=== PATIENT | female | born 1955 | race African-American/Black ===

== ENCOUNTER 2020-05-15 11:26 | Outpatient (CLI) | payer OTHER, SELFPAY ==
--- NOTE | ~2020-05-15 | XR_ITS ---
EXAMINATION: XR chest 2V EXAM DATE: 05/15/2020 11:46 INDICATION: R06.00 - Dyspnea, unspecified, worse with exertion. History of hypertension. TECHNIQUE: Frontal and lateral projections of the chest obtained and reviewed. There is no prior lizz dy for comparison. FINDINGS: There is moderately enlarged cardiac silhouette which could be cardiomegaly and/or pericar dial effusion. No confluent consolidation, pneumothorax or pleural effusion suspected. Mild thoracic spondylosis. IMPRESSION: Mildly enlarged cardiac silhouette, pericardial effusion and/or cardiomegaly. Reviewed, dictated and finalized at location A. M [employer] IMPRESSION: Mildly enlarged cardiac silhouette, pericardial effusion and/or ca rdiomegaly.
== END 2020-05-15 11:27 | disposition home or self-care (01) ==
PROVIDERS: PCP Family Medicine; Visit Provider Family Medicine
DX: R06.00 Dyspnea, unspecified (principal); M47.814 Spondylosis without myelopathy or radiculopathy, thoracic region
CPT/HCPCS: 71046

== ENCOUNTER 2020-05-17 09:38 | Outpatient (CLI) | payer OTHER, SELFPAY ==
[2020-05-17 09:56] LABS: Hematocrit 30.9 % (37.0-47.0); Mean Corpuscular HGB Conc 32.4 g/dl (32-36); Mean Corpuscular Hemoglobin 30.1 pg (26-34); Mean Corpuscular Volume 93.1 fl (80-100); Mean Platelet Volume 10.8 fl (7.4-10.4); Platelet Count Result 160 k/mm3 (150-375); Red Blood Count 3.32 M/mm3 (4.2-5.4); Red Cell Distribution Width 14.7 % (11.5-14.5); White Blood Count 8.3 K/mm3 (4.5-10.0)
[2020-05-17 10:08] LABS: Alanine Aminotransferase 13 U/L (4-35); Albumin Level 3.5 g/dL (3.5-5.1); Alkaline Phosphatase 69 U/L (38-126); Anion Gap 7 mmol/L (8-16); Aspartate Amino Transferase 16 U/L (14-36); Bilirubin,Total 0.6 mg/dL (0.2-1.3); Blood Urea Nitrogen 33 mg/dL (7-17); Calcium 8.7 mg/dL (8.4-10.2); Carbon Dioxide 19 mmol/L (22-30); Chloride 112 mmol/L (98-107); Estimated Glomerular Filt Rate 22; Glucose 98 mg/dL (65-105); Potassium 4.4 mmol/L (3.4-5.0); Sodium 138 mmol/L (137-145)
[2020-05-17 10:17] LABS: NT Pro B Type Natriuretic Pept 3180 PG/ML (5-100)
== END 2020-05-17 09:39 | disposition home or self-care (01) ==
LOC: ANHLAB 09:39
PROVIDERS: PCP Family Medicine; Visit Provider Family Medicine
DX: I50.9 Heart failure, unspecified (principal); R06.00 Dyspnea, unspecified
CPT/HCPCS: 36415; 80053; 83880; 85027

== ENCOUNTER 2020-06-05 11:31 | Outpatient (CLI) | payer OTHER, SELFPAY ==
[2020-06-05 12:37] LABS: Anion Gap 7 mmol/L (8-16); Blood Urea Nitrogen 30 mg/dL (7-17); Carbon Dioxide 21 mmol/L (22-30); Chloride 112 mmol/L (98-107); Estimated Glomerular Filt Rate 20; Glucose 92 mg/dL (65-105); Potassium 4.5 mmol/L (3.4-5.0); Sodium 140 mmol/L (137-145)
== END 2020-06-05 11:32 | disposition home or self-care (01) ==
LOC: ANHLAB 11:35
PROVIDERS: PCP Family Medicine; Visit Provider Internal Medicine Cardiovascular Disease
DX: I50.30 Unspecified diastolic (congestive) heart failure (principal)
CPT/HCPCS: 36415; 80048

== ENCOUNTER 2020-08-02 11:01 | Outpatient (CLI) | payer OTHER, SELFPAY ==
--- NOTE | ~2020-08-02 | XR_ITS ---
EXAMINATION: XR chest 2V DATE: 08/02/2020 11:19 INDICATION: Dyspnea TECHNIQUE: PA and lateral views of the chest were obtained. COMPARISON: Chest radiograph dated 05/15/2020 FINDINGS: The lungs remain clear with no focal airspace opacities, pulmonary edema, pleural effusion or pneumot horax. Unchanged moderately enlarged cardiac silhouette. Mediastinal silhouette is normal with tortuo us thoracic aorta. Cholecystectomy clips in right upper quadrant. Mild thoracic spondylosis. IMPRESSION: 1. Unchanged moderately enlarged cardiac silhouette which could represent cardiomegaly an/or pericard ial effusion. Reviewed, dictated and finalized at location B. IMPRESSION: 1. Unchanged moderately enlarged cardiac silhouette which could represent cardi omegaly an/or pericardial effusion.
--- NOTE | ~2020-08-02 | XR_ITS ---
EXAMINATION: XR knee LT 3V DATE: 08/02/2020 11:19 INDICATION: Left knee pain post fall one week prior TECHNIQUE: Anteroposterior, 2 oblique and crosstable lateral views of the left knee were obtained COMPARISON: None. FINDINGS: Alignment is normal. No fracture large left knee joint effusion without evident layering lipohemarth rosis. Tricompartmental osteoarthritis at the left knee with small to moderate sized marginal osteoph ytes in all 3 compartments and severe joint space narrowing in the medial compartment. Loose osteocho ndral bodies are seen along the cephalad margin of the patella and in the recess posterior to the int ercondylar notch. Soft tissues are unremarkable. IMPRESSION: 1. Large left knee joint effusion without evident fracture or layering lipohemarthrosis. 2. Tricompartmental osteoarthritis at the left knee, severe in the medial compartment. Reviewed, dictated and finalized at location B. IMPRESSION: 1. Large left knee joint effusion without evident fracture or layering lipohema rthrosis. 2. Tricompartmental osteoarthritis at the left knee, severe in the medial gillian rtment.
[2020-08-02 12:26] LABS: Anion Gap 11 mmol/L (8-16); Blood Urea Nitrogen 49 mg/dL (7-17); Calcium 8.1 mg/dL (8.4-10.2); Carbon Dioxide 10 mmol/L (22-30); Chloride 121 mmol/L (98-107); D Dimer 1.27 ug/mL (<0.48); Estimated Glomerular Filt Rate 14; Glucose 160 mg/dL (65-105); Potassium 3.1 mmol/L (3.4-5.0); Sodium 142 mmol/L (137-145)
[2020-08-02 12:35] LABS: NT Pro B Type Natriuretic Pept 7420 PG/ML (5-100)
== END 2020-08-02 11:02 | disposition home or self-care (01) ==
PROVIDERS: PCP Family Medicine; Visit Provider Family Medicine
DX: M25.562 Pain in left knee (principal); R06.00 Dyspnea, unspecified; I50.9 Heart failure, unspecified; M25.462 Effusion, left knee; M17.12 Unilateral primary osteoarthritis, left knee
CPT/HCPCS: 36415; 71046; 73562; 80048; 83880; 85380

== ENCOUNTER 2020-09-11 09:59 | Outpatient (CLI) | payer MEDICARE, SELFPAY ==
--- NOTE | ~2020-09-11 | US_ITS ---
EXAMINATION: US venous doppler [facility] DATE: 09/11/2020 10:44 INDICATION: Left arm swelling TECHNIQUE: Carbone scale images with and without compression and Doppler images of the left upper extrem ity veins were obtained. COMPARISON: None. FINDINGS: The left internal jugular vein, subclavian vein, axillary vein, brachial veins, basilic vein, cephali c vein, radial vein, and ulnar vein are patent.] IMPRESSION: 1. Patent left upper extremity veins. No evidence of deep venous thrombosis. Reviewed, dictated and finalized at location A.
== END 2020-09-11 10:00 | disposition home or self-care (01) ==
PROVIDERS: PCP Family Medicine; Visit Provider Family Medicine
DX: M79.89 Other specified soft tissue disorders (principal)
CPT/HCPCS: 93971

== ENCOUNTER 2021-07-02 13:11 | Outpatient (CLI) | payer MEDICARE, SELFPAY ==
--- NOTE | 2021-07-02 13:36 | ECG_ITS ---
Measurements Intervals [place] Rate: 75 P: 1 MN: 138 QRS: 65 QRSD: 79 T: 57 QT: 400 QTc: 449 Interpretive Statements BASELINE MOTION ARTIFACT SINUS RHYTHM WITHIN NORMAL LIMITS NO PREVIOUS ECG AVAILABLE FOR COMPARISON Electronically Signed On 07-02-2021 15:50:24 [employer]OOF [employer]TER by Adriel Sloan M.D.
[2021-07-02 14:17] LABS: Hematocrit 27.5 % (37.0-47.0); Hemoglobin 8.5 g/dL (12.0-15.0); Mean Corpuscular HGB Conc 30.9 g/dl (32-36); Mean Corpuscular Hemoglobin 29.6 pg (26-34); Mean Corpuscular Volume 95.8 fl (80-100); Mean Platelet Volume 10.2 fl (7.4-10.4); Platelet Count Result 262 k/mm3 (150-375); Red Blood Count 2.87 M/mm3 (4.2-5.4); Red Cell Distribution Width 17.5 % (11.5-14.5); White Blood Count 9.6 K/mm3 (4.5-10.0)
[2021-07-02 14:33] LABS: Alanine Aminotransferase 10 U/L (4-35); Albumin Level 3.6 g/dL (3.5-5.1); Alkaline Phosphatase 89 U/L (38-126); Anion Gap 8 mmol/L (8-16); Aspartate Amino Transferase 18 U/L (14-36); Bilirubin,Total 0.4 mg/dL (0.2-1.3); Blood Urea Nitrogen 24 mg/dL (7-17); Calcium 8.5 mg/dL (8.4-10.2); Carbon Dioxide 21 mmol/L (22-30); Chloride 111 mmol/L (98-107); Estimated Glomerular Filt Rate 19; Glucose 136 mg/dL (65-110); Potassium 3.9 mmol/L (3.4-5.0); Sodium 140 mmol/L (137-145)
== END 2021-07-02 13:12 | disposition home or self-care (01) ==
PROVIDERS: PCP Family Medicine; Visit Provider Family Medicine
DX: M79.604 Pain in right leg (principal); M79.605 Pain in left leg; I10 Essential (primary) hypertension
CPT/HCPCS: 36415; 80053; 85027; 93005

== ENCOUNTER 2022-09-11 13:17 | Outpatient (CLI) | payer MEDICARE, MEDICAID, SELFPAY ==
--- NOTE | ~2022-09-11 | MM_ITS ---
EXAMINATION: MM screening david BI w zach HISTORY: Screening mammogram TECHNIQUE: Craniocaudal and mediolateral oblique 3-D tomosynthesis images were obtained and synthetic 2-D images were generated. CAD analysis was submitted and interpreted. COMPARISON: No prior mammogram is available for comparison at this institution. BREAST PARENCHYMAL COMPOSITION: There are scattered areas of fibroglandular density. FINDINGS: No suspicious mass, calcification, or architectural distortion are identified in either svetlana ast to suggest malignancy. IMPRESSION: 1. No mammographic evidence of malignancy. 2. Recommend routine screening mammography in one year. BI-RADS Category 1: Negative Reviewed, dictated and finalized at location A.
== END 2022-09-11 13:18 | disposition home or self-care (01) ==
LOC: ANHIMG 13:20
PROVIDERS: PCP Family Medicine
DX: Z12.31 Encounter for screening mammogram for malignant neoplasm of breast (principal)
CPT/HCPCS: 77063; 77067

== ENCOUNTER 2023-01-10 12:14 | Outpatient (CLI) | payer MEDICARE, OTHER, SELFPAY ==
--- NOTE | ~2023-01-10 | XR_ITS ---
Clinical Indication: Cough PA and lateral views of the chest: Comparison: 08/02/2020 Findings: The lungs are clear, without evidence of focal consolidation or pleural effusion. Cardiome diastinal silhouette is within normal limits. Bones and soft tissues are unremarkable. Impression: Normal chest. Reviewed, dictated and finalized at location . Impression: Normal chest.
[2023-01-10 14:02] LABS: Basophils Percent Auto 0.2 % (0.2-1.2); Eosinophils Absolute Auto 0.2 K/mm3 (0-0.3); Hematocrit 35.6 % (37.0-47.0); Hemoglobin 11.3 g/dL (12.0-15.0); Immature Granulocyte Absolute 0.04 K/mm3 (0.00-0.031); Immature Granulocyte Percent A 0.4 % (0-0.5); Lymphocytes Absolute Auto 0.86 K/mm3 (0.9-3.2); Lymphocytes Percent Auto 9.4 % (18.3-44.2); Mean Corpuscular HGB Conc 31.7 g/dl (32-36); Mean Corpuscular Hemoglobin 32.1 pg (26-34); Mean Corpuscular Volume 101.1 fl (80-100); Monocytes Absolute Auto 0.6 K/mm3 (0.1-0.6); Neutrophils Absolute Auto 7.5 K/mm3 (1.3-6.7); Platelet Count Result 182 k/mm3 (150-375); Red Blood Count 3.52 M/mm3 (4.2-5.4); Red Cell Distribution Width 15.2 % (11.5-14.5); White Blood Count 9.2 K/mm3 (4.5-10.0)
[2023-01-10 14:18] LABS: Alanine Aminotransferase 13 U/L (6-35); Albumin Level 4.1 g/dL (3.5-5.1); Alkaline Phosphatase 55 U/L (38-126); Anion Gap 9 mmol/L (8-16); Aspartate Amino Transferase 18 U/L (14-36); Bilirubin,Total 0.8 mg/dL (0.2-1.3); Blood Urea Nitrogen 16 mg/dL (7-17); Calcium 9.4 mg/dL (8.4-10.2); Carbon Dioxide 33 mmol/L (22-30); Chloride 93 mmol/L (98-107); Estimated Glomerular Filt Rate 7; Glucose 100 mg/dL (65-110); Lipase 116 U/L (23-300); Potassium 5.1 mmol/L (3.4-5.0); Sodium 135 mmol/L (137-145)
== END 2023-01-10 12:15 | disposition home or self-care (01) ==
PROVIDERS: PCP Family Medicine; Visit Provider Family Medicine
DX: R11.10 Vomiting, unspecified (principal); R05.9 Cough, unspecified
CPT/HCPCS: 36415; 71046; 80048; 80076; 83690; 85025

== ENCOUNTER 2023-09-16 09:06 | Outpatient (CLI) | payer MEDICARE, OTHER, MEDICAID, SELFPAY ==
--- NOTE | ~2023-09-16 | DEXA_ITS ---
Bone Density Report Name: VIJAY EVERETT Age: 68 Sex: Female Ethnicity: White Date of : 1955 Indication: postmenopausal; screening for osteoporosis; history of glucocorticoids; end stage renal disease; hysterectomy; Referring Provider: JARROD RIVERA Study: Bone densitometry was performed. Exam Date: September 16, 2023 Accession number: [id number] Bone Density: Region BMD T-score Z-score Classification AP Spine(L1-L4) 0.995 -0.5 1.5 Normal Femoral Neck (Left) 0.668 -1.6 0.0 Osteopenia Total Hip (Left) 0.991 0.4 1.8 Normal Femoral Neck (Right) 0.739 -1.0 0.7 Normal Total Hip (Right) 0.941 0.0 1.4 Normal Total Hip Mean 0.966 0.2 1.6 Normal World Health Organization criteria for BMD impression classify patients as: Normal (T-score at or above -1.0), Osteopenia (T-score between -1.0 and -2.5), or Osteoporosis (T-score at or below -2.5). 10-year Fracture Risk(1): Major Osteoporotic Fracture 14% Hip Fracture 2.1% Reported Risk Factors: [place] (), Neck BMD=0.668, BMI=35.3, glucocorticoids (1) FRAX(R) Version 3.08. Fracture probability calculated for an untreated patient. Fracture probability may be lower if the patient has received treatment. Clinical Information Provided by Patient: Has taken Glucocorticoids Has the following medical conditions: End stage renal disease, Hysterectomy Patient maximum height was 64.0 Menopause Age: 50 No regular weight bearing exercise Drinks caffeinated beverages Onset of menses at age 16 Number of children 1 Impression: The patient has low bone mass, based on the Left Femoral Neck T-score. The patient has an estimated ten-year risk of hip fracture of 2.1% and an estimated ten-year risk of major fracture of 14%, based on the WHO FRAX algorithm. The patient has risk factors, including: history of glucocorticoid therapy. Discussion: BONE DENSITY IS LOW AT ONE OR MORE SKELETAL SITES. This patient's lowest T-score is low at one or more skeletal sites. It meets the World Health Organization's (WHO) criteria for ?low bone mass? (T-score between -1.0 and -2.5). The patient's 10-year risk of fracture as calculated by FRAX is less than the threshold where pharmacological therapy is recommended by the National Osteoporosis Foundation (NOF). However, all treatment decisions require clinical judgment and consideration of individual patient factors, including patient preferences, comorbidities, previous drug use, risk factors not captured in the FRAX model (e.g., frailty, falls, vitamin D deficiency, increased bone turnover, interval significant decline in bone density) and possible under or overestimation of fracture risk by FRAX. The patient should follow a healthful lifestyle (good nutrition with adequate calcium and vitamin D, and appropriate we
--- NOTE | ~2023-09-16 | MM_ITS ---
EXAMINATION: MM screening david BI w zach HISTORY: Screening TECHNIQUE: Craniocaudal and mediolateral oblique 3-D tomosynthesis images were obtained and synthetic 2-D images were generated. CAD analysis was submitted and interpreted. COMPARISON: 09/11/2022 BREAST PARENCHYMAL COMPOSITION: Not dense: There are scattered areas of fibroglandular density. FINDINGS: There is increased density of the left breast compared with prior study. There is skin thic kening. No discrete mass or architectural distortion. There are no suspicious calcifications. No mamm ographic evidence for malignancy in the right breast which is stable. IMPRESSION: 1. Increased left breast density with is skin thickening. 2. Complete left breast ultrasound recommended. BI-RADS CATEGORY 0 - INCOMPLETE STUDY, NEED ADDITIONAL IMAGING EVALUATION. Reviewed, dictated and finalized at location A.
== END 2023-09-16 09:07 | disposition home or self-care (01) ==
LOC: ANHIMG 09:07
PROVIDERS: PCP Family Medicine; Visit Provider Family Medicine
DX: Z12.31 Encounter for screening mammogram for malignant neoplasm of breast (principal); R92.8 Other abnormal and inconclusive findings on diagnostic imaging of breast; M85.89 Other specified disorders of bone density and structure, multiple sites; Z78.0 Asymptomatic menopausal state; Z13.820 Encounter for screening for osteoporosis
CPT/HCPCS: 77063; 77067; 77080

== ENCOUNTER 2023-10-21 10:28 | Outpatient (CLI) | payer MEDICARE, OTHER, MEDICAID, SELFPAY ==
--- NOTE | ~2023-10-21 | MMUS_ITS ---
EXAMINATION: MM diagnostic david LT w zach, US breast LT complete HISTORY: Left breast skin thickening TECHNIQUE: Additional 3-D tomosynthesis images of the left breast were performed and synthetic 2-D im ages were generated. CAD analysis was submitted and interpreted. High resolution complete left breast ultrasound including all four quadrants and the subareolar breast ultrasound was performed. COMPARISON: 09/16/2023, 09/11/2022 FINDINGS: MAMMOGRAPHIC FINDINGS: There are scattered fibroglandular densities. Breast parenchymal pattern is unchanged from recent prior exam. No suspicious mass lesion or distorti on seen. No suspicious mucosal lesions. There is mild diffuse skin thickening, probably minimally imp roved from prior exam. ULTRASOUND: No sonographic abnormality seen in the left breast. No solid or cystic lesion identified. IMPRESSION: No mammographic or sonographic evidence for malignancy. Skin thickening is probably minimally improv ed, and therefore may be related to fluid overload or other transient edematous state. BI-RADS Category 1: Negative Reviewed, dictated and finalized at location . IMPRESSION: No mammographic or sonographic evidence for malignancy. Skin thickening is pro bably minimally improved, and therefore may be related to fluid overload or oth er transient edematous state. BI-RADS Category 1: Negative
== END 2023-10-21 10:29 | disposition home or self-care (01) ==
LOC: ANHIMG 10:30
PROVIDERS: PCP Family Medicine; Visit Provider Family Medicine
DX: R92.8 Other abnormal and inconclusive findings on diagnostic imaging of breast (principal)
CPT/HCPCS: 76641; 77061; 77065; G0279

== ENCOUNTER 2023-12-18 11:21 | Outpatient (CLI) | payer MEDICARE, OTHER, SELFPAY ==
[2023-12-18 12:33] LABS: Ammonia < 9 umol/L (9-30)
[2023-12-18 12:37] LABS: Alanine Aminotransferase 12 U/L (6-35); Albumin Level 4.1 g/dL (3.5-5.1); Alkaline Phosphatase 55 U/L (38-126); Anion Gap 13 mmol/L (4-12); Aspartate Amino Transferase 20 U/L (14-36); Blood Urea Nitrogen 18 mg/dL (7-17); Calcium 9.7 mg/dL (8.4-10.2); Carbon Dioxide 31 mmol/L (22-30); Chloride 90 mmol/L (98-107); Estimated Glomerular Filt Rate 8; Glucose 100 mg/dL (65-110); Potassium 3.8 mmol/L (3.4-5.0); Sodium 134 mmol/L (137-145)
[2023-12-18 12:52] LABS: Add Urine Microscopic? YES; Appearance Urine Turbid (Clear); Bacteria Urine 4+ /hpf; Bilirubin Urine Negative (Negative); Blood Urine 3+ (Negative); Color Urine Yellow (Yellow); Glucose Urine UA Negative (Negative); Hyaline Casts Urine Present /lpf; Ketones Urine Negative (Negative); Leukocyte Esterase Ur 3+ LEU/UL (Negative); Need Manual Microscopic Reviewed; Nitrate Urine Negative (Negative); Non Pathogenic Casts >20; Protein Urine 4+ mg/dL (Negative); RBC Urine >100 /hpf (0-2); Specific Grav Ur 1.019 (1.001-1.035); Squamous Epithelial Cell Urine Moderate /hpf (Few); Urobilinogen Urine 0.2 mg/dL (<2.0); WBC Clumps Urine Present /HPF; WBC Urine >100 /hpf (0-3)
[2023-12-18 13:07] LABS: Iron 85 ug/dL (37-170)
[2023-12-18 13:16] LABS: Percent Iron Saturation 38 % (20-50)
[2023-12-18 17:21] LABS: Hemoglobin A1C 5.2 % (<5.7)
[2023-12-21 10:02] LABS: Arsenic, Blood <10 mcg/L (<23); Mercury, Blood <5 mcg/L (<OR=10)
[2023-12-22 09:47] LABS: Lead, Blood 2.1 mcg/dL (<3.5)
[2023-12-22 10:27] LABS: Collection Sample Blood
== END 2023-12-18 11:22 | disposition home or self-care (01) ==
PROVIDERS: PCP Family Medicine; Visit Provider Family Medicine
DX: E11.9 Type 2 diabetes mellitus without complications (principal); D64.9 Anemia, unspecified; Z13.1 Encounter for screening for diabetes mellitus; R79.89 Other specified abnormal findings of blood chemistry; R44.1 Visual hallucinations; Z77.018 Contact with and (suspected) exposure to other hazardous metals; E53.8 Deficiency of other specified B group vitamins; R20.2 Paresthesia of skin; N39.0 Urinary tract infection, site not specified
CPT/HCPCS: 36415; 80053; 81001; 82140; 82175; 82533; 82607; 82728; 83036; 83540; 83550; 83655; 83825; 87040; 87086; 87088

== ENCOUNTER 2024-06-24 01:48 | Day surgery (SDC) | payer MEDICARE, OTHER, SELFPAY ==
[2024-06-18 15:07] VITALS: BMI 34.0
--- OUTSIDE RECORDS SUMMARY | 2024-06-24 01:52 | XMS_ITS ---
Author Organization [facility] Building [address] Address [address] [place] [address] Care Team Providers Care Steamer Tender Name Role Phone Nikkie Gordon MD Primary Care Provider [phone] Nikkie Gordon MD Unavailable [phone] Susan Jones MD Unavailable [phone] Kristian Ram MD Unavailable [phone] Chelo Herzog RN Unavailable Davidson Martinez MD Unavailable [phone] Tyson Bales MD Unavailable [phone] Kristian Ram MD Unavailable [phone] Anna Clakre MD Unavailable [phone] Dialysis Access Sites Type Status Location Placement Date Removal Da te AV fistula Active Left Forearm - Anterior Hemodialysis Cath Double 02/13/24 Tunneled catheter Right Subclavian Active Right Breast - Upper 02/13/2024 Hemodialysis AV Access Forearm Inactive Left Forearm - Anterior 10/25/2018 Procedures Procedure Name Priority Date/Time Associated Diagnosis Comments TACROLIMUS, HIGHLY SENSITIVE, LC/MS/MS Routine 06/15/2024 10:01 AM SOLAR MANUFACTURER'S REPRESENTATIVE PROTEIN / CREATININE RATIO, URINE, RANDOM Routine 06/15/2024 10:01 AM SOLAR MANUFACTURER'S REPRESENTATIVE RENAL FUNCTION PANEL Routine 06/15/2024 10:01 AM SOLAR MANUFACTURER'S REPRESENTATIVE CBC WITH AUTO DIFFERENTIAL Routine 06/15/2024 10:01 AM SOLAR MANUFACTURER'S REPRESENTATIVE COPY(IES) SENT TO: Routine 06/15/2024 10:01 AM SOLAR MANUFACTURER'S REPRESENTATIVE BK VIRUS, DNA, QUANTITATIVE Routine 06/15/2024 10:01 AM SOLAR MANUFACTURER'S REPRESENTATIVE CYTOMEGALOVIRUS (CMV) DNA, QUANT GEN LAB Routine 06/15/2024 10:01 AM SOLAR MANUFACTURER'S REPRESENTATIVE PROTEIN / CREATININE RATIO, URINE, RANDOM Routine 05/11/2024 8:55 AM SOLAR MANUFACTURER'S REPRESENTATIVE RENAL FUNCTION PANEL Routine 05/11/2024 8:55 AM SOLAR MANUFACTURER'S REPRESENTATIVE TACROLIMUS, HIGHLY SENSITIVE, LC/MS/MS Routine 05/11/2024 8:55 AM SOLAR MANUFACTURER'S REPRESENTATIVE CBC WITH AUTO DIFFERENTIAL Routine 05/11/2024 8:55 AM SOLAR MANUFACTURER'S REPRESENTATIVE COPY(IES) SENT TO: Routine 05/11/2024 8: 55 AM SOLAR MANUFACTURER'S REPRESENTATIVE CYTOMEGALOVIRUS (CMV) DNA, QUANT GEN LAB Routine 05/11/2024 8:55 AM SOLAR MANUFACTURER'S REPRESENTATIVE BK VIRUS, DNA, QUANTITATIVE Routine 05/11/2024 8:55 AM SOLAR MANUFACTURER'S REPRESENTATIVE PROTEIN / CREATININE RATIO, URINE, RANDOM Routine 04/08/2024 9:41 AM SOLAR MANUFACTURER'S REPRESENTATIVE TACROLIMUS, HIGHLY SENSITIVE, LC/MS/MS Routine 04/08/2024 9:41 AM SOLAR MANUFACTURER'S REPRESENTATIVE RENAL FUNCTION PANEL Routine 04/08/2024 9:41 AM SOLAR MANUFACTURER'S REPRESENTATIVE CBC WITH AUTO DIFFERENTIAL Routine 04/08/2024 9:41 AM SOLAR MANUFACTURER'S REPRESENTATIVE COPY(IES) SENT TO: Routine 04/08/2024 9: 41 AM SOLAR MANUFACTURER'S REPRESENTATIVE CYTOMEGALOVIRUS (CMV) DNA, QUANT GEN LAB Routine 04/08/2024 9:41 AM SOLAR MANUFACTURER'S REPRESENTATIVE BK VIRUS, DNA, QUANTITATIVE Routine 04/08/2024 9:41 AM SOLAR MANUFACTURER'S REPRESENTATIVE HEPATITIS PANEL, ACUTE STAT 4 10:00 AM CDT PYELOGRAM - RETROGRADE Obstruction of right ureter Hydronephrosis, right Case Notes 05/21@1125- 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 from 11:30 and 1:00 per Suha via email(EF) Special Needs C ARM FLOROSCOPY from Last 3 Months or Most Recently Relevant to Health Maintenance Allergies Active Allergy Reactions Criticality Noted Date Comments Allopurinol Other (See comments) Low 11/27/2018 Urinary retention Bumetanide Unknown Low 10/25/2021 Cannot take this Iodinated Contrast Media Muscle pain Medium 03/01/2019 Spasms, muscle contractions - only the kind of dye the cardiologists use patient has received dye from urology without reaction Lisinopril Unknown High 03/15/2021 Does not remember but reports was very severe Could not urinate Losartan Other (See comments) Low 04/04/2021 Urinary retention Mycophenolate Sodium Other (See comments) Low 08/02/2020 Kidney transplant BK virus Perflutren Lipid Microspheres Muscle pain Medium 10/26/2018 Unclassified Drug Rash High 06/27/2016 Pt has had a kidney transplant and all medications have to be ran through a certain database to make sure she is not allergic? Medications calcium carbonate (TUMS ORAL)Indication s:supplement Take 1 tablet by mouth 3 (three) times a day with meals Active amLODIPine (NORVASC) 10 mg tabletIndicatio ns:hypertension Take 1 tablet (10 mg total) by mouth every morning Active atorvastatin (LIPITOR) 10 mg tabletIndicatio ns:hyperlipidem ia Take 1 tablet (10 mg total) by mouth nightly Active furosemide (LASIX) 80 mg tabletIndicatio ns:Edema Take 1 tablet (80 mg total) by mouth 2 (two) times a day Active labetaloL (NORMODYNE,HALE DATE) 200 mg tabletIndicatio ns:hypertension Take 2 tablets (400 mg total) by mouth 3 (three) times a day Active tacrolimus XR (ENVARSUS XR) 1 mg tablet extended release 24 hrIndications:P revention of Kidney Transplant Rejection Take 3 tablets (3 mg total) by mouth every morning Active predniSONE (DELTASONE) 5 mg tabletIndicatio ns:Organ Transplant Rejection Take 1 tablet (5 mg) by mouth every morning Active ethyl chloride topical spray Apply 1 spray topically as needed for other (skin anesthetic) 4 Active oxyCODONE (ROXICODONE) 5 mg immediate release tablet Take 1 tablet (5 mg total) by mouth every 4 (four) hours as needed for pain 4 Active Active Problems Patient Care Coordination No te Formatting of this note migh t be different from the original. [facility] Standing orders q-monthly, FK, BK,CMV,UPE, q3 ferritin,UA/UCX,uric acid,iron profile, iPTH, mg exp. 09/07/24 Problem Noted Date Diagnosed Date Troponin level elevated 12/31/2023 Assessment & Plan (12/31/2023 1:39 AM CDT): Chronic elevation to 50s since 2022, stable during this admission x 2 and compared to prior. No chest pain, no EKG changes concerning for ischemia. - Stop trending AV fistula thrombosis (CMS/HCC) 12/30/2023 Assessment & Plan (01/01/2024 9:49 AM CDT): Pain with dialysis/fistula access. 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 Thrombus visualized in the proximal forearm/distal fistula; non-occlusive. Vascular surgery rec no acute surgical intervention. 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 She tolerated post procedural hemodialysis without issues. Of note, she tolerated iodinated contrast without any adverse events even though it was listed as allergy with muscle pains. Hypercalcemia 12/30/2023 Assessment & Plan (12/31/2023 9:55 AM CDT): Mild, appears to be relatively new-onset. Last PTH 12/02 75. VitD 12/01 16. Takes calcium carbonate TID - PTH 108, hold Tums - Trend Sepsis due to undetermined organism ([facility]) Shortness of breath 04/23/2023 Hyperkalemia 04/21/2023 Gross hematuria 03/14/2023 Dialysis patient 03/02/2023 Morbid obesity 03/01/2023 Assessment & Plan (03/02/2023 12:00 PM SOLAR MANUFACTURER'S REPRESENTATIVE): Body mass index is 34.15 kg/m . - discussed risks of obesity and association with chronic medical problems including HTN, DM, and NEREYDA - advised patient on importance of maintaining a diet and exercise regimen including cardiovascular and weight-bearing exercises - nutrition consultation Physical deconditioning 06/01/2021 Assessment & Plan (06/07/2021 2:29 PM SOLAR MANUFACTURER'S REPRESENTATIVE): Multifactorial but mostly driven by her neuropathy and malnutrition - PT/OT recommending SNF. Pt not amenable. - Home PT/OT with 24 hr supervision. States son can provide supervision. Assessment & Plan (06/06/2021 2:58 PM SOLAR MANUFACTURER'S REPRESENTATIVE): Multifactorial but mostly driven by her neuropathy -PT/OT recommending SNF. Pt not amenable. Assessment & Plan (06/05/2021 7:10 PM SOLAR MANUFACTURER'S REPRESENTATIVE): Multifactorial but mostly driven by her neuropathy -PT/OT recommending SNF, she is considering but may still elect to discharge home Assessment & Plan (06/04/2021 9:50 AM SOLAR MANUFACTURER'S REPRESENTATIVE): Multifactorial but mostly driven by her neuropathy -PT/OT recommending SNF, she is considering but may still elect to discharge home Assessment & Plan (06/03/2021 10:29 AM SOLAR MANUFACTURER'S REPRESENTATIVE): Multifactorial but mostly driven by her neuropathy -PT/OT recommending SNF, she is considering but may still elect to discharge home Assessment & Plan (06/02/2021 12:57 PM SOLAR MANUFACTURER'S REPRESENTATIVE): Multifactorial but mostly driven by her neuropathy -PT/OT recommending SNF, she is considering but may still elect to discharge home Assessment & Plan (06/01/2021 12:38 PM SOLAR MANUFACTURER'S REPRESENTATIVE): Multifactorial but mostly driven by her neuropathy -PT/OT recommending SNF, she is considering but may still elect to discharge home Pyelonephritis of transplanted kidney vs UTI 06/2021 Assessment & Plan (06/07/2021 2:25 PM SOLAR MANUFACTURER'S REPRESENTATIVE): Spiked temperature of 38.2 on 05/30 once scheduled Tylenol was held for COVID isolation precautions to be removed. She has also been endorsing chills/feeling cold, but also reported this was not new for her (of note her hospital room is often ~80 degrees so far from cold) -Initial admission infectious work-up was unremarkable, but Renal Transplant with duplex 05/25 showed no NENITA but new mild hydro and focal heterogenous echogenic area concerning for developing abscess. Repeat US on 05/29/2021 with stable findings. Initially there was low concern for UTI/pyelo given negative UA, but then once she spiked a temp a repeat UA was obtained & is now positive for ESBL Klebsiella - Renal fluid collection 06/04. Aspirate cx NGTD. - CTX changed to IV Meropenem 500 mg q12 hours (06/04- 06/06). - Transplant ID consulted. Switched to ciprofloxacin on 06/06 to complete a 2 week antibiotic course (EOT 06/19) - Will need CBC and CMP weekly while on cipro. Will also need EKG in 1 week to monitor for QTc prolongation. CM to arrange appointment with PCP in 1 week. - Will need repeat renal US in 2 weeks to evaluate resolution of renal fluid collection Assessment & Plan (06/06/2021 2:50 PM SOLAR MANUFACTURER'S REPRESENTATIVE): Spiked temperature of 38.2 on 05/30 once scheduled Tylenol was held for COVID isolation precautions to be removed. She has also been endorsing chills/feeling cold, but also reported this was not new for her (of note her hospital room is often ~80 degrees so far from cold) -Initial admission infectious work-up was unremarkable, but Renal Transplant with duplex 05/25 showed no NENITA but new mild hydro and focal heterogenous echogenic area concerning for developing abscess. Repeat US on 05/29/2021 with stable findings. Initially there was low concern for UTI/pyelo given negative UA, but then once she spiked a temp a repeat UA was obtained & is now positive for ESBL Klebsiella - Renal fluid collection 06/04. Aspirate cx NGTD, follow up. - CTX changed to IV Meropenem 500 mg q12 hours (06/04- 06/06). - Transplant ID consulted. Switch to ciprofloxacin to complete a 2 week antibiotic course (06/16- ) Assessment & Plan (06/05/2021 7:14 PM SOLAR MANUFACTURER'S REPRESENTATIVE): Spiked temperature of 38.2 on 05/30 once scheduled Tylenol was held for COVID isolation precautions to be removed. She has also been endorsing chills/feeling cold, but also reported this was not new for her (of note her hospital room is often ~80 degrees so far from cold) -Initial admission infectious work-up was unremarkable, but Renal Transplant with duplex 05/25 showed no NENITA but new mild hydro and focal heterogenous echogenic area concerning for developing abscess. Repeat US on 05/29/2021 with stable findings -Initially there was low concern for UTI/pyelo given negative UA, but then once she spiked a temp a repeat UA was obtained & is now positive for ESBL Klebsiella -Renal fluid collection 06/04. Aspirate cx NGTD, follow up. -CTX changed to IV Meropenem 500 mg q12 hours (06/04- current). Will need to determine treatment duration. Assessment & Plan (06/04/2021 9:51 AM SOLAR MANUFACTURER'S REPRESENTATIVE): Spiked temperature of 38.2 on 05/30 once scheduled Tylenol was held for COVID isolation precautions to be removed. She has also been endorsing chills/feeling cold, but also reported this was not new for her (of note her hospital room is often ~80 degrees so far from cold) -Initial admission infectious work-up was unremarkable, but Renal Transplant with duplex 05/25 showed no NENITA but new mild hydro and focal heterogenous echogenic area concerning for developing abscess. Repeat US on 05/29/2021 with stable findings -Initially there was low concern for UTI/pyelo given negative UA, but then once she spiked a temp a repeat UA was obtained & is now positive for Klebsiella -Will follow-up sensitivities -Continue empiric CTX 2 g q 24 hours -Consulted IR this AM - after discussion they would like another repeat US (ordered) to monitor as the location/size of her potential abscess is very small and will likely be difficult to sample Assessment & Plan (06/03/2021 10:33 AM SOLAR MANUFACTURER'S REPRESENTATIVE): Spiked temperature of 38.2 on 05/30 once scheduled Tylenol was held for COVID isolation precautions to be removed. She has also been endorsing chills/feeling cold, but also reported this was not new for her (of note her hospital room is often ~80 degrees so far from cold) -Initial admission infectious work-up was unremarkable, but Renal Transplant with duplex 05/25 showed no NENITA but new mild hydro and focal heterogenous echogenic area concerning for developing abscess. Repeat US on 05/29/2021 with stable findings -Initially there was low concern for UTI/pyelo given negative UA, but then once she spiked a temp repeat UA is now positive for Klebsiella -Will follow-up sensitivities -Continue empiric CTX 2 g q 24 hours -Will consult IR tomorrow to determine if renal lesion is amenable to sampling for cultures Assessment & Plan (06/02/2021 12:53 PM SOLAR MANUFACTURER'S REPRESENTATIVE): Spiked temperature of 38.2 on 05/30 once scheduled Tylenol was held for COVID isolation precautions to be removed.. She has also been endorsing chills/feeling cold, but also reported this was not new for her (of note her hospital room is often ~80 degrees so far from cold) -Now afebrile since 05/30 and hemodynamically stable -Repeat CXR and UA without infection. Somehow a second UA was collected after her thomas was removed and is now more consistent with UTI - urine culture pending -Will start empiric CTX 2 g q24 hours while her urine culture is resulting Assessment & Plan (06/01/2021 12:34 PM SOLAR MANUFACTURER'S REPRESENTATIVE): Spiked temperature of 38.2 on 05/30 once scheduled Tylenol was held for COVID isolation precautions to be removed.. She has also been endorsing chills/feeling cold, but also reported this was not new for her (of note her hospital room is often ~80 degrees so far from cold) -Possible that she has prolonged COVID course -Repeat CXR and UA without infection. Blood cx were also ordered but have not been collected yet -No further fevers and hemodynamically stable so holding off on antibiotics for now and will follow up cultures Assessment & Plan (05/31/2021 8:40 AM SOLAR MANUFACTURER'S REPRESENTATIVE): Spiked temperature overnight of 38.2 once scheduled Tylenol was held for COVID isolation precautions to be removed, but they will remain on for now. She has also been endorsing chills/feeling cold, but also reported this was not new for her (of note her hospital room is often ~80 degrees so far from cold) -Possible that she has prolonged COVID course, but will complete repeat infectious work-up today, especially given this concern for a possible renal abscess -Repeat CXR, blood cultures and UA ordered this AM -No further fevers overnight and hemodynamically stable so holding off on antibiotics for now and will follow up cultures Severe malnutrition 05/28/2021 Assessment & Plan (06/06/2021 2:58 PM SOLAR MANUFACTURER'S REPRESENTATIVE): Poor appetite, encourage protein supplementations. Nutrition consult Assessment & Plan (06/05/2021 7:16 PM SOLAR MANUFACTURER'S REPRESENTATIVE): Poor appetite, encourage protein supplementations. Nutrition consult Assessment & Plan (06/04/2021 9:52 AM SOLAR MANUFACTURER'S REPRESENTATIVE): Poor appetite, encourage protein supplementations. Nutrition consult Assessment & Plan (06/03/2021 10:29 AM SOLAR MANUFACTURER'S REPRESENTATIVE): Poor appetite, encourage protein supplementations. Nutrition consult Assessment & Plan (06/02/2021 12:55 PM SOLAR MANUFACTURER'S REPRESENTATIVE): Poor appetite, encourage protein supplementations. Nutrition consult Assessment & Plan (06/01/2021 12:36 PM SOLAR MANUFACTURER'S REPRESENTATIVE): Poor appetite, encourage protein supplementations. Nutrition consult Assessment & Plan (05/31/2021 11:07 AM SOLAR MANUFACTURER'S REPRESENTATIVE): Poor appetite, encourage protein supplementations. Nutrition consult Assessment & Plan (05/30/2021 10:51 AM SOLAR MANUFACTURER'S REPRESENTATIVE): Poor appetite, encourage protein supplementations. Nutrition consult Assessment & Plan (05/29/2021 1:35 PM SOLAR MANUFACTURER'S REPRESENTATIVE): Poor appetite, encourage protein supplementations. Nutrition consult Leg pain, bilateral 05/26/2021 Assessment & Plan (06/07/2021 2:27 PM SOLAR MANUFACTURER'S REPRESENTATIVE): According to the patient, this began with swelling after her recent discharge from the hospital after medications were changed (diuretics); however, sounds neuropathic in nature with burning sensation, bilateral in nature and worse with weight bearing - Lower extremity duplex negative for DVT - Continue scheduled Tylenol - Started on daily Lyrica 25mg for neuropathy component. Minimal improvement, increased dose 50mg daily on 06/06. - Capsaicin cream BID - Oxycodone to 2.5 mg q8 hours today and no plans to continue on discharge - Ambulates with walker at baseline - continue to encourage movment - PT/OT recommended SNF. Pt not amenable. Assessment & Plan (06/06/2021 2:54 PM SOLAR MANUFACTURER'S REPRESENTATIVE): According to the patient, this began with swelling after her recent discharge from the hospital after medications were changed (diuretics); however, sounds neuropathic in nature with burning sensation, bilateral in nature and worse with weight bearing - Lower extremity duplex negative for DVT - Continue scheduled Tylenol - Started on daily Lyrica 25mg for neuropathy component. Minimal improvement, increased dose 50mg daily on 06/06. - Capsaicin cream BID - Oxycodone to 2.5 mg q8 hours today and no plans to continue on discharge - Ambulates with walker at baseline - continue to encourage movment - PT/OT recommended SNF. Pt not amenable. Assessment & Plan (06/05/2021 7:17 PM SOLAR MANUFACTURER'S REPRESENTATIVE): According to the patient, this began with swelling after her recent discharge from the hospital after medications were changed (diuretics); however, sounds neuropathic in nature with burning sensation, bilateral in nature and worse with weight bearing - Continue scheduled Tylenol - Started on daily Lyrica 25mg for neuropathy component. Minimal improvement, will increase dose - Capsaicin cream BID - Oxycodone to 2.5 mg q8 hours today and no plans to continue on discharge - Ambulates with walker at baseline - continue to encourage movment - Lower extremity duplex negative for DVT Assessment & Plan (06/04/2021 9:49 AM SOLAR MANUFACTURER'S REPRESENTATIVE): According to the patient, this began with swelling after her recent discharge from the hospital after medications were changed (diuretics); however, sounds neuropathic in nature with burning sensation, bilateral in nature and worse with weight bearing - Continue scheduled Tylenol - Started daily Lyrica and capsaicin cream BID for possible neuropathy component - Will reduce Oxycodone to 2.5 mg q8 hours today and no plans to continue on discharge - Ambulates with walker at baseline - continue to encourage movment - Lower extremity duplex negative for DVT Assessment & Plan (06/03/2021 10:29 AM SOLAR MANUFACTURER'S REPRESENTATIVE): According to the patient, this began with swelling after her recent discharge from the hospital after medications were changed (diuretics); however, sounds neuropathic in nature with burning sensation, bilateral in nature and worse with weight bearing - Continue scheduled Tylenol - Started daily Lyrica and started capsaicin cream BID for possible neuropathy component - Plan to wean off Oxycodone by discharge - Ambulates with walker at baseline - Lower extremity duplex negative for DVT Assessment & Plan (06/02/2021 1:01 PM SOLAR MANUFACTURER'S REPRESENTATIVE): According to the patient, this began with swelling after her recent discharge from the hospital after medications were changed (diuretics); however, sounds neuropathic in nature with burning sensation, bilateral in nature and worse with weight bearing - Continue scheduled Tylenol - Started daily Lyrica for possible neuropathy component and will start capsaicin cream BID today - Plan to wean off Oxycodone by discharge - Ambulates with walker at baseline - Lower extremity duplex negative for DVT Assessment & Plan (06/01/2021 12:38 PM SOLAR MANUFACTURER'S REPRESENTATIVE): According to the patient, this began with swelling after her recent discharge from the hospital after medications were changed (diuretics); however, sounds neuropathic in nature with burning sensation, bilateral in nature and worse with weight bearing -Improving, holding scheduled Tylenol to allow for COVID isolation to be removed, will resume once made COVID recovered -Started daily Lyrica for possible neuropathy component and will wean Oxycodone to 5 mg q8 hours today with plan to stop by discharge -Ambulates with walker at baseline -Lower extremity duplex negative for DVT Assessment & Plan (05/31/2021 11:07 AM SOLAR MANUFACTURER'S REPRESENTATIVE): According to the patient, this began with swelling after her recent discharge from the hospital after medications were changed (diuretics); however, sounds neuropathic in nature with burning sensation, bilateral in nature and worse with weight bearing -Improving, holding scheduled Tylenol to allow for COVID isolation to be removed, will resume once made COVID recovered -Started daily Lyrica for possible neuropathy component and plan to wean off PRN oxycodone prior to discharge -Ambulates with walker at baseline, PT/OT evaluation recommending SNF - patient is considering -Lower extremity duplex negative for DVT Assessment & Plan (05/30/2021 10:50 AM SOLAR MANUFACTURER'S REPRESENTATIVE): According to the patient, this began with swelling after her recent discharge from the hospital after medications were changed (diuretics); however, sounds neuropathic in nature with burning sensation, bilateral in nature and worse with weight bearing -Improving, holding scheduled Tylenol for today to allow for COVID isolation to be removed, will resume once made COVID recovered -Started daily Lyrica for possible neuropathy component and plan to wean off PRN oxycodone prior to discharge -Ambulates with walker at baseline, PT/OT evaluation recommending SNF - patient is considering -Lower extremity duplex negative for DVT Assessment & Plan (05/29/2021 1:33 PM SOLAR MANUFACTURER'S REPRESENTATIVE): According to the patient, this began with swelling after her recent discharge from the hospital after medications were changed (diuretics); however, sounds neuropathic in nature with burning sensation, bilateral in nature and worse with weight bearing -Improving, continue scheduled Tylenol -Will start daily Lyrica for possible neuropathy component and plan to wean off PRN oxycodone prior to discharge -Ambulates with walker at baseline, PT/OT evaluation pending -Lower extremity duplex negative for DVT Assessment & Plan (05/28/2021 10:52 AM SOLAR MANUFACTURER'S REPRESENTATIVE): According to the patient, this began with swelling after her recent discharge from the hospital after Medications were changed (diuretics). Tramadol is effective for her. Change tramadol to scheduled APAP with oxycodone 5 mg PRN. Monitor edema and sxs; edema is gone. Pt walks with walker, PT/OT evaluations Dopplers to r/o DVT s/p COVID: Dopplers negative for evidence of DVT/rahul Pt denies sxs of sciatica Assessment & Plan (05/27/2021 9:49 AM SOLAR MANUFACTURER'S REPRESENTATIVE): According to the patient, this began with swelling after her recent discharge from the hospital after Medications were changed (diuretics). Tramadol is effective for her. Will start with tramadol 25 mg TID prn. Monitor edema and sxs. Pt walks with walker, PT/OT evaluations Dopplers to r/o DVT s/p COVID Assessment & Plan (05/26/2021 5:26 PM SOLAR MANUFACTURER'S REPRESENTATIVE): According to the patient, this began with swelling after her recent discharge from the hospital after Medications were changed (diuretics). Tramadol is effective for her. Will start with tramadol 25 mg TID prn. Monitor edema and sxs. Pt walks with walker, PT/OT evaluations Pneumonia due to COVID-19 virus 05/10/2021 Assessment & Plan (05/15/2021 2:07 PM SOLAR MANUFACTURER'S REPRESENTATIVE): Symptom onset 05/02/21, positive test 05/09 at OSH (see care everywhere for confirmation) Cont O2, wean as able Cont decadron (d#1=05/10) Remdesivir continued w renal txp's blessing, s/p 5 days VTE ppx with SQ heparin Assessment & Plan (05/14/2021 3:22 PM SOLAR MANUFACTURER'S REPRESENTATIVE): Symptom onset 05/02/21, positive test 05/09 at OSH (see care everywhere for confirmation) Cont O2, wean as able Cont decadron (d#1=05/10) Remdesivir continued w renal txp's blessing, d#5 today VTE ppx with SQ heparin Assessment & Plan (05/13/2021 11:08 AM SOLAR MANUFACTURER'S REPRESENTATIVE): Symptom onset 05/02/21, positive test 05/09 at OSH (see care everywhere for confirmation) Cont O2, wean as able Cont decadron (d#1=05/10) Remdesivir continued w renal txp's blessing, d#4 today VTE ppx with SQ heparin Assessment & Plan (05/12/2021 12:01 PM SOLAR MANUFACTURER'S REPRESENTATIVE): Symptom onset 05/02/21, positive test 05/09 at OSH (see care everywhere for confirmation) Cont O2, wean as able Cont decadron (d#1=05/10) Remdesivir continued w renal txp's blessing, d#3 today VTE ppx with SQ heparin Assessment & Plan (05/11/2021 1:29 PM SOLAR MANUFACTURER'S REPRESENTATIVE): Onset of symptoms ~05/02/21 with worsening dyspnea, fatigue and progressive symptoms prompting presentation. Now on 5L supplemental oxygen. Tested positive for COVID 05/09/21 -dexamethasone 6mg daily (05/10/20- -discussed remdesivir with renal transplant, started 05/10-- closely monitoring liver enzymes and for bradycardia and seizures -wean supplemental O2 as able Well woman exam 04/04/2021 Assessment & Plan (04/04/2021 12:24 PM SOLAR MANUFACTURER'S REPRESENTATIVE): Pap done secondary to last one being remote and she is immuno-supressed after her transplant. RTO 12m. I will send the results to the portal. If she has not heard in a week, to call the office. Breast swelling 04/04/2021 Assessment & Plan (04/04/2021 3:20 PM SOLAR MANUFACTURER'S REPRESENTATIVE): She is s/p bx. I will look at the result as the skin changes are worrisome. No results available. Dr. Mendoza office is currently closed. Will try back later. 04/04/21 12:43pm Upon talking to Dr. Gordon, I realize the pt must have two charts. Dr Gordon was unaware that the pt had a breast bx. She does have a mammogram that was 4C. I cant see this. I was able to find the bx report and it was negative. Transplant is aware of the skin changes and suspect it is related to her ESRD and fluid overload. 04/04/21 3:19pm Tobacco use 04/04/2021 Assessment & Plan (04/04/2021 3:20 PM SOLAR MANUFACTURER'S REPRESENTATIVE): The patient was encouraged to stop smoking. Techniques for smoking cessation were discussed to the patient's level of interest. Preoperative testing 11/09/2020 Hydrohepatosis 09/22/2020 Overview (09/22/2020): Added automatically from request for surgery [id number] Hypernatremia 08/05/2020 Assessment & Plan (08/05/2020 11:08 AM CDT): Due to Na bicarb drip ordered for correction of metabolic acidosis. - discontinue bicarb drip - will likely resolve, no need for further testing unless otherwise indicated Hydronephrosis, right 09/21/2019 Overview (09/21/2019): Added automatically from request for surgery [id number] Other proteinuria 05/05/2019 Obstruction of right ureter 02/19/2019 Overview (02/19/2019): Added automatically from request for surgery [id number] Obesity, Class II, BMI 35-39.9 01/29/2019 Assessment & Plan (05/27/2021 9:48 AM SOLAR MANUFACTURER'S REPRESENTATIVE): RD consult while here for diet education Pt has low appetite, not eating much Supplements ordered Assessment & Plan (05/26/2021 5:17 PM SOLAR MANUFACTURER'S REPRESENTATIVE): RD consult while here for diet education Hydronephrosis 12/11/2018 Overview (12/11/2018): Added automatically from request for surgery [id number] Uterine fibroid 12/02/2018 Assessment & Plan (12/05/2018 2:29 PM CDT): MRI confirmed uterine fibroid, unable to discern if compression ureter. MRI also noted blood products in the endometrial canal. Pt denies vaginal bleeding, went through menopause in 2005. Abdominal US with borderline enlarged endometrial stripe, Gynecology planning for outpt endometrial biopsy - they will coordinate. - OP gynecology follow up Assessment & Plan (12/04/2018 10:34 AM CDT): MRI confirmed uterine fibroid, unable to discern if compression ureter. MRI also noted blood products in the endometrial canal. Pt denies vaginal bleeding, went through menopause in 2005. Abdominal US with borderline enlarged endometrial stripe, Gynecology planning for outpt endometrial biopsy - they will coordinate. - OP gynecology follow up HERNANDEZ (iron deficiency anemia) 11/30/2018 Assessment & Plan (05/28/2021 10:50 AM SOLAR MANUFACTURER'S REPRESENTATIVE): Continue iron supplements Assessment & Plan (05/27/2021 9:47 AM SOLAR MANUFACTURER'S REPRESENTATIVE): Continue iron supplements Assessment & Plan (05/26/2021 5:18 PM SOLAR MANUFACTURER'S REPRESENTATIVE): Continue iron supplements Assessment & Plan (12/05/2018 2:29 PM CDT): - Continue home iron supplement - Protonix given possible gastric ulcer on CT scan - Outpatient EGD and colonoscopy -- coordinated through PCP Assessment & Plan (12/04/2018 10:33 AM CDT): - Continue home iron supplement - Protonix given possible gastric ulcer on CT scan - Outpatient EGD and colonoscopy -- coordinated through PCP Assessment & Plan (12/03/2018 10:36 AM CDT): - Continue home iron supplement - Protonix given possible gastric ulcer on CT scan - Outpatient EGD and colonoscopy -- coordinated through PCP Assessment & Plan (12/01/2018 5:26 PM CDT): - Continue home iron supplement - Start protonix given possible gastric ulcer on CT scan - Outpatient EGD and colonoscopy -- coordinated through PCP Ureteral obstruction of transplanted kidney 05/2018 Overview (11/27/2018): Added automatically from request for surgery [id number] Assessment & Plan (12/31/2023 9:55 AM CDT): S/p stenting by urology. Was due for stent exchange 11/2023 but hospitalized so missed appt. Next appt 01/20. Patient very concerned about delay in stent exchange. We will reach out to Urology team if her stay gets delayed, but it is unlikely that she will have the procedure done in the next day since they do not have openings for electives. Assessment & Plan (06/07/2021 2:28 PM SOLAR MANUFACTURER'S REPRESENTATIVE): History of ureteral obstruction from known fibroid and having ureteral exchanges every 3 months with urology (next scheduled on 06/06). - Urethral stent exchanged 06/05. - Follow up with urology outpatient Assessment & Plan (06/06/2021 2:53 PM SOLAR MANUFACTURER'S REPRESENTATIVE): History of ureteral obstruction from known fibroid and having ureteral exchanges every 3 months with urology (next scheduled on 06/06). - Urethral stent exchanged 06/05. Assessment & Plan (06/05/2021 7:15 PM SOLAR MANUFACTURER'S REPRESENTATIVE): History of ureteral obstruction from known fibroid and having ureteral exchanges every 3 months with urology (next scheduled on 06/06). - Urethral stent exchanged 06/05. Assessment & Plan (06/04/2021 9:47 AM SOLAR MANUFACTURER'S REPRESENTATIVE): History of ureteral obstruction from known fibroid and having ureteral exchanges every 3 months with urology (next scheduled on 06/06). -Discussed with urology here as her exchange is actually scheduled for [facility] on Fri and they are going to try and fit her on the OR schedule here -Will need to be NPO on Friday night Assessment & Plan (06/03/2021 10:28 AM SOLAR MANUFACTURER'S REPRESENTATIVE): History of ureteral obstruction from known fibroid and having ureteral exchanges every 3 months with urology (next scheduled on 06/06). Assessment & Plan (06/02/2021 12:53 PM SOLAR MANUFACTURER'S REPRESENTATIVE): History of ureteral obstruction from known fibroid and having ureteral exchanges every 3 months with urology (next scheduled on 06/06). Assessment & Plan (06/01/2021 12:35 PM SOLAR MANUFACTURER'S REPRESENTATIVE): History of ureteral obstruction from known fibroid and having ureteral exchanges every 3 months with urology (next scheduled on 06/06). Assessment & Plan (05/31/2021 11:06 AM SOLAR MANUFACTURER'S REPRESENTATIVE): History of ureteral obstruction from known fibroid and having ureteral exchanges every 3 months with urology (next scheduled on 06/06). Assessment & Plan (05/30/2021 10:48 AM SOLAR MANUFACTURER'S REPRESENTATIVE): History of ureteral obstruction from known fibroid and having ureteral exchanges every 3 months with urology (next scheduled on 06/06). Assessment & Plan (05/29/2021 1:31 PM SOLAR MANUFACTURER'S REPRESENTATIVE): History of ureteral obstruction from known fibroid and having ureteral exchanges every 3 months with urology (next scheduled on 06/06). Assessment & Plan (05/28/2021 10:50 AM SOLAR MANUFACTURER'S REPRESENTATIVE): ureteral obstruction from known fibroid and having ureteral exchanges every 3 months with urology (next scheduled on 06/06). Assessment & Plan (05/27/2021 9:47 AM SOLAR MANUFACTURER'S REPRESENTATIVE): ureteral obstruction from known fibroid and having ureteral exchanges every 3 months with urology (next scheduled on 06/06). Assessment & Plan (05/26/2021 5:16 PM SOLAR MANUFACTURER'S REPRESENTATIVE): ureteral obstruction from known fibroid and having ureteral exchanges every 3 months with urology (next scheduled on 06/06). Assessment & Plan (08/03/2020 2:58 AM CDT): - has urological stent exchanges q 3mo. Awaiting renal trasplant ultrasound results. If hydronephrosis present, will consult urology for possible stent exchange. Assessment & Plan (12/05/2018 2:27 PM CDT): Renal U/S at OSH with hydronephrosis of transplanted kidney now s/p ureteral stent by urology 11/28. Found to have extrinsic compression of ureter of unclear etiology, uterine fibroid in CT scan as well as MRI however given ureter has already been stented, unable to comment on if fibroid is causing the compression. Thomas removed 12/03. - Urology contact today- they will call her to set up outpatient appt - Gynecology will contact for oupt appt, clinic phone number provided as well Assessment & Plan (12/04/2018 10:30 AM CDT): Renal U/S at OSH with hydronephrosis of transplanted kidney now s/p ureteral stent by urology 11/28. Found to have extrinsic compression of ureter of unclear etiology, uterine fibroid in CT scan as well as MRI however given ureter has already been stented, unable to comment on if fibroid is causing the compression. Thomas removed 12/03. - Outpatient urology & gynecology follow up Assessment & Plan (12/03/2018 10:33 AM CDT): Renal U/S at OSH with hydronephrosis of transplanted kidney now s/p ureteral stent by urology 8/3. Found to have extrinsic compression of ureter of unclear etiology, uterine fibroid in CT scan as well as MRI however given ureter has already been stented, unable to comment on if fibroid is causing the compression. Thomas removed 12/03. - Mgmt of stent per urology, will need follow up. Assessment & Plan (12/02/2018 12:00 PM CDT): Renal U/S at OSH with hydronephrosis of transplanted kidney now s/p ureteral stent by urology 11/28. Found to have extrinsic compression of ureter of unclear etiology, uterine fibroid in CT scan as well as MRI however given ureter has already been stented, unable to comment on if fibroid is causing the compression. - Mgmt of stent per urology, will need follow up. - Remove thomas Assessment & Plan (12/01/2018 5:21 PM CDT): Renal U/S at OSH with hydronephrosis of transplanted kidney now s/p ureteral stent by urology 11/28. Found to have extrinsic compression of ureter of unclear etiology, uterine fibroid in CT scan but gynecology does not think this is the case. - MRI Pelvis W/O contrast - Management of stent per urology. Assessment & Plan (11/30/2018 5:27 PM CDT): Renal U/S at OSH with hydronephrosis of transplanted kidney now s/p ureteral stent by urology 11/28. Found to have extrinsic compression of ureter of unclear etiology, uterine fibroid in CT scan but gynecology does not think this is the case. - Workers Compensation Defense Attorney consulted for uterine fibroid - MRI Pelvis W/O contrast - Management of stent per urology. Assessment & Plan (11/29/2018 12:15 PM CDT): Renal U/S at OSH with hydronephrosis of transplanted kidney now s/p ureteral stent by urology 11/28. Found to have extrinsic compression of ureter from likely uterine fibroid. -Management of stent per urology. -Agree with non-emergent bilingual nanny consult for management of fibroids. Hyperlipidemia, unspecified 11/27/2018 Assessment & Plan (03/02/2023 12:01 PM SOLAR MANUFACTURER'S REPRESENTATIVE): Continue patient's home atorvastatin 10 mg daily Hypertension, essential 11/27/2018 Assessment & Plan (05/14/2021 3:24 PM SOLAR MANUFACTURER'S REPRESENTATIVE): Continue home amlodipine, labetalol Assessment & Plan (05/10/2021 1:21 AM SOLAR MANUFACTURER'S REPRESENTATIVE): Continue home amlodipine, labetalol Assessment & Plan (08/04/2020 4:52 PM CDT): - cont amlodipine, labetolol, and lasix Assessment & Plan (08/03/2020 2:51 AM CDT): - cont amlodipine, labetolol, and lasix Assessment & Plan (12/05/2018 2:29 PM CDT): - Home Amlodipine - Home labetalol Assessment & Plan (12/04/2018 10:32 AM CDT): - Home Amlodipine - Home labetalol Assessment & Plan (12/03/2018 10:34 AM CDT): - Home Amlodipine. - Home labetalol Assessment & Plan (12/02/2018 12:02 PM CDT): -Home Amlodipine. -Home labetalol Assessment & Plan (12/01/2018 5:23 PM CDT): -Home Amlodipine. - Restart home labetalol Assessment & Plan (11/30/2018 5:28 PM CDT): -Cont home Amlodipine. Home Labetalol on hold. Consider restarting vs switching to Coreg if BP remains elevated. Assessment & Plan (11/29/2018 12:21 PM CDT): -Cont home Amlodipine. Home Labetalol on hold. Consider restarting vs switching to Coreg if BP remains elevated. 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 Discussed with transplant team- discharge on this regimen. Will need a tacro level in 1 week. - Follow up with renal transplant on 06/21. 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 Assessment & Plan (05/28/2021 10:53 AM SOLAR MANUFACTURER'S REPRESENTATIVE): s/p renal transplant (2007, b/l Cr 2.7-3.4) 2/2 hypertensive nephrosclerosis - Renal Transplant with duplex 05/25 showed no NENITA but new mild hydro and focal heterogenous echogenic area concerning for developing abscess. [ ] Repeat transplant Ultrasound on 05/29/2021 (ordered) - CMV negative. - BK and DSA pending. High risk immunosuppression medication for organ transplantation, requiring regular intensive follow-up and monitoring. - Pt's tacrolimus was recently increased to 9&8, but she reports vomiting her medications. 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 - Continue prednisone 5 mg every day. Continue current dose of tacrolimus, titrated down to 4 05/27 - Monitor daily 5 am tacro level. Renal Tx team following/managing Assessment & Plan (05/27/2021 9:46 AM SOLAR MANUFACTURER'S REPRESENTATIVE): s/p renal transplant (2007, b/l Cr 2.7-3.4) 2/2 hypertensive nephrosclerosis - Renal Transplant with duplex 05/25 showed no NENITA but new mild hydro and focal heterogenous echogenic area concerning for developing abscess. - CMV negative. - BK and DSA pending. High risk immunosuppression medication for organ transplantation, requiring regular intensive follow-up and monitoring. - Pt's tacrolimus was recently increased to 9&8, but she reports vomiting her medications. 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 - Continue prednisone 5 mg every day. Continue current dose of tacrolimus - Monitor daily 5 am tacro level. Renal Tx team following/managing Assessment & Plan (05/26/2021 5:11 PM SOLAR MANUFACTURER'S REPRESENTATIVE): s/p renal transplant (2007, b/l Cr 2.7-3.4) 2/2 hypertensive nephrosclerosis - Renal Transplant with duplex 05/25 showed no NENITA but new mild hydro and focal heterogenous echogenic area concerning for developing abscess. - CMV negative. - BK and DSA pending. High risk immunosuppression medication for organ transplantation, requiring regular intensive follow-up and monitoring. - Pt's tacrolimus was recently increased to 9&8, but she reports vomiting her medications. 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 - Continue prednisone 5 mg every day. Continue current dose of tacrolimus - Monitor daily 5 am tacro level. Renal Tx team following/managing Assessment & Plan (05/15/2021 2:07 PM SOLAR MANUFACTURER'S REPRESENTATIVE): ESRD 2/2 hypertensive nephrosclerosis s/p renal transplant (2007, b/l Cr 2.7- 3.4) Tacrolimus trough above goal, decreased dose 5mg bid Renal transplant service comanaging (nb home dose 9am/8pm) Home prednisone 5mg daily held while on dexamethasone Has been off myfortic (h/o bk/cmv viremia) Assessment & Plan (05/14/2021 3:22 PM SOLAR MANUFACTURER'S REPRESENTATIVE): ESRD 2/2 hypertensive nephrosclerosis s/p renal transplant (2007, b/l Cr 2.7- 3.4) Tacrolimus trough above goal, decreased dose 5mg bid Renal transplant service comanaging (nb home dose 9am/8pm) Home prednisone 5mg daily held while on dexamethasone Has been off myfortic (h/o bk/cmv viremia) Assessment & Plan (05/13/2021 11:09 AM SOLAR MANUFACTURER'S REPRESENTATIVE): ESRD 2/2 hypertensive nephrosclerosis s/p renal transplant (2007, b/l Cr 2.7- 3.4) Tacrolimus trough above goal, decreased dose 5mg bid Renal transplant service comanaging (nb home dose 9am/8pm) Home prednisone 5mg daily held while on dexamethasone Assessment & Plan (05/12/2021 12:01 PM SOLAR MANUFACTURER'S REPRESENTATIVE): ESRD 2/2 hypertensive nephrosclerosis s/p renal transplant (2007, b/l Cr 2.7- 3.4) -home tacrolimus 9qAM, 8mg qPM; daily trough ordered -home prednisone 5mg daily held while on dexamethasone -renal transplant ultrasound-- no doppler evidence of transplant renal artery stenosis, increased echogenicity of the right lower quadrant transplant kidney consistent with renal parenchymal disease, no hydronephrosis. -renal transplant following Assessment & Plan (05/11/2021 1:16 PM SOLAR MANUFACTURER'S REPRESENTATIVE): ESRD 2/2 hypertensive nephrosclerosis s/p renal transplant (2007, b/l Cr 2.7- 3.4) -home tacrolimus 9qAM, 8mg qPM; daily trough ordered -home prednisone 5mg daily held while on dexamethasone -renal transplant ultrasound-- no doppler evidence of transplant renal artery stenosis, increased echogenicity of the right lower quadrant transplant kidney consistent with renal parenchymal disease, no hydronephrosis. -renal transplant following Assessment & Plan (02/28/2021 7:28 AM CDT): - recommend diuresis as able per renal txp, appreciate recs Assessment & Plan (12/05/2018 2:28 PM CDT): Renal transplant at [facility], followed now reportedly by Dr. Rome Ram although his clinic stated she has not been seen there and has no showed the last 3 clinic appts. UPC elevated 945, previously 306 in 10/2017. UA with 2+ leuks but no infectious symptoms. Cr improved slightly with 1L IVF yesterday. - Patient has a second chart - Ronan Moreira with information in Care Everywhere from her sandblast or shotblast equipment tender. She has not seen Dr. Ram yet. She has had 3 no shows. - Recent Cr trends from Care Everywhere 07/25/18: 2.22 09/19/2018: 2.6 10/10/2018: 2.74 - Not on anti-metabolite due to BK virus per her transplant sandblast or shotblast equipment tender prior notes - Transplant nephrology following, mgmt of immunosuppression per their team - Continue prednisone - Tac increased to 7 mg BID. Tac goal 4-7 per notes - BMP and tac trough on Friday per Transplant nephrology, [facility] and have faxed to PCP, script provided - Discharge today. I have paged her primary sandblast or shotblast equipment tender office. I have faxed the d/c summary to her PCP as well. Assessment & Plan (12/04/2018 10:32 AM CDT): Renal transplant at [facility], followed now reportedly by Dr. Rome Ram although his clinic stated she has not been seen there and has no showed the last 3 clinic appts. UPC elevated 945, previously 306 in 10/2017. UA with 2+ leuks but no infectious symptoms. Cr improved slightly with 1L IVF yesterday. - Patient has a second chart - Ronan Moreira with information in Care Everywhere from her sandblast or shotblast equipment tender. She has not seen Dr. Ram yet. She has had 3 no shows. - Recent Cr trends from Care Everywhere 07/25/18: 2.22 09/19/2018: 2.6 10/10/2018: 2.74 - Not on anti-metabolite due to BK virus per her transplant sandblast or shotblast equipment tender prior notes - Transplant nephrology following, mgmt of immunosuppression per their team - Continue prednisone - Tac increased to 7 mg BID. Tac goal 4-7 per notes - Further mgmt of MARIBELL per nephrology. Assessment & Plan (12/03/2018 10:35 AM CDT): Renal transplant at [facility], followed now reportedly by Dr. Rome Ram although his clinic stated she has not been seen there and has no showed the last 3 clinic appts. - Patient has a second chart - Ronan Moreira with information in Care Everywhere from her sandblast or shotblast equipment tender. She has not seen Dr. Ram yet. She has had 3 no shows. - Recent Cr trends from Care Everywhere 07/25/18: 2.22 09/19/2018: 2.6 10/10/2018: 2.74 - Not on anti-metabolite due to BK virus per nephro notes - Transplant nephrology following, mgmt of immunosuppression per their team - Continue prednisone - Tac level remains low, increased to 7 mg BID. Tac goal 4-7 per notes Assessment & Plan (12/02/2018 12:03 PM CDT): Renal transplant at [facility], followed now reportedly by Dr. Rome Ram although his clinic stated she has not been seen there and has no showed the last 3 clinic appts. - Transplant nephrology following, mgmt of immunosuppression per their team - Tac level remains low, defer dosing to transplant nephro - Obtaining records from PCP given Dr. Ram' office has no records Assessment & Plan (12/01/2018 5:23 PM CDT): Renal transplant at [facility], followed now by Dr. Rome Ram. Reported baseline cr 1.3 - Transplant nephrology following, mgmt of immunosuppression per their team - Tac level in AM (low today) - Attempting to obtain records from Dr. Ram Assessment & Plan (11/30/2018 5:38 PM CDT): Renal transplant at [facility], followed now by Dr. Rome Ram. Reported baseline cr 1.3 - Transplant nephrology following, mgmt of immunosuppression per their team Acute on chronic diastolic (congestive) heart fa ilure 11/27/2018 Assessment & Plan (06/07/2021 2:28 PM SOLAR MANUFACTURER'S REPRESENTATIVE): TTE (02/2021) with EF 70%, nl RV/LV size and systolic function and moderate pericardia effusion without collapse (managed conservatively with diuresis). -Repeat TTE with EF 70%, impaired relaxation and stable moderate pericardial effusion -Continue BP control and no signs of volume overload currently Assessment & Plan (06/06/2021 2:57 PM SOLAR MANUFACTURER'S REPRESENTATIVE): TTE (02/2021) with EF 70%, nl RV/LV size and systolic function and moderate pericardia effusion without collapse (managed conservatively with diuresis). -Repeat TTE with EF 70%, impaired relaxation and stable moderate pericardial effusion -Continue BP control and no signs of volume overload currently Assessment & Plan (06/05/2021 7:15 PM SOLAR MANUFACTURER'S REPRESENTATIVE): TTE (02/2021) with EF 70%, nl RV/LV size and systolic function and moderate pericardia effusion without collapse (managed conservatively with diuresis). -Repeat TTE with EF 70%, impaired relaxation and stable moderate pericardial effusion -Continue BP control and no signs of volume overload currently Assessment & Plan (06/04/2021 9:42 AM SOLAR MANUFACTURER'S REPRESENTATIVE): TTE (02/2021) with EF 70%, nl RV/LV size and systolic function and moderate pericardia effusion without collapse (managed conservatively with diuresis). -Repeat TTE with EF 70%, impaired relaxation and stable moderate pericardial effusion -Continue BP control and no signs of volume overload currently Assessment & Plan (06/03/2021 10:27 AM SOLAR MANUFACTURER'S REPRESENTATIVE): TTE (02/2021) with EF 70%, nl RV/LV size and systolic function and moderate pericardia effusion without collapse (managed conservatively with diuresis). -Repeat TTE with EF 70%, impaired relaxation and stable moderate pericardial effusion -Continue BP control and no signs of volume overload currently Assessment & Plan (06/02/2021 12:50 PM SOLAR MANUFACTURER'S REPRESENTATIVE): TTE (02/2021) with EF 70%, nl RV/LV size and systolic function and moderate pericardia effusion without collapse (managed conservatively with diuresis). -Repeat TTE with EF 70%, impaired relaxation and stable moderate pericardial effusion -Continue BP control and no signs of volume overload currently Assessment & Plan (06/01/2021 12:32 PM SOLAR MANUFACTURER'S REPRESENTATIVE): TTE (02/2021) with EF 70%, nl RV/LV size and systolic function and moderate pericardia effusion without collapse (managed conservatively with diuresis). -Repeat TTE with EF 70%, impaired relaxation and stable moderate pericardial effusion -Continue BP control and no signs of volume overload currently Assessment & Plan (05/31/2021 11:04 AM SOLAR MANUFACTURER'S REPRESENTATIVE): TTE (02/2021) with EF 70%, nl RV/LV size and systolic function and moderate pericardia effusion without collapse (managed conservatively with diuresis). -Repeat TTE with EF 70%, impaired relaxation and stable moderate pericardial effusion -Continue BP control and no signs of volume overload currently Assessment & Plan (05/30/2021 10:47 AM SOLAR MANUFACTURER'S REPRESENTATIVE): TTE (02/2021) with EF 70%, nl RV/LV size and systolic function and moderate pericardia effusion without collapse (managed conservatively with diuresis). -Repeat TTE with EF 70%, impaired relaxation and stable moderate pericardial effusion -Continue BP control and no signs of volume overload currently Assessment & Plan (05/29/2021 1:31 PM SOLAR MANUFACTURER'S REPRESENTATIVE): TTE (02/2021) with EF 70%, nl RV/LV size and systolic function and moderate pericardia effusion without collapse (managed conservatively with diuresis). -Repeat TTE with EF 70%, impaired relaxation and stable moderate pericardial effusion -Continue BP control and no signs of volume overload currently Assessment & Plan (05/28/2021 10:49 AM SOLAR MANUFACTURER'S REPRESENTATIVE): TTE (02/2021) with EF 70%, nl RV/LV size and systolic function and moderate pericardia effusion without collapse (managed conservatively with diuresis). Repeat TTE ordered Assessment & Plan (05/27/2021 9:46 AM SOLAR MANUFACTURER'S REPRESENTATIVE): TTE (02/2021) with EF 70%, nl RV/LV size and systolic function and moderate pericardia effusion without collapse (managed conservatively with diuresis). Repeat TTE ordered Assessment & Plan (05/26/2021 5:20 PM SOLAR MANUFACTURER'S REPRESENTATIVE): TTE (02/2021) with EF 70%, nl RV/LV size and systolic function and moderate pericardia effusion without collapse (managed conservatively with diuresis). Repeat TTE Assessment & Plan (12/05/2018 2:29 PM CDT): Patient with reported CHF. On review of 2nd chart patient's TTE 10/26 showed normal EF 67%, normal RV function, grade 2 diastolic dysfunction, PASP of 55, as well as moderate AR, mild-mod MR, and moderate TR. Pro-BNP 2900 from 2800 last admission. Appears euvolemic. Assessment & Plan (12/04/2018 10:32 AM CDT): Patient with reported CHF. On review of 2nd chart patient's TTE 7/ showed normal EF 67%, normal RV function, grade 2 diastolic dysfunction, PASP of 55, as well as moderate AR, mild-mod MR, and moderate TR. Pro-BNP 2900 from 2800 last admission. Appears euvolemic. Assessment & Plan (12/03/2018 10:36 AM CDT): Patient with reported CHF. On review of 2nd chart patient's TTE 7 showed normal EF 67%, normal RV function, grade 2 diastolic dysfunction, PASP of 55, as well as moderate AR, mild-mod MR, and moderate TR. Pro-BNP 2900 from 2800 last admission. Appears euvolemic. Assessment & Plan (12/02/2018 12:03 PM CDT): Patient with reported CHF. On review of 2nd chart patient's TTE 7 showed normal EF 67%, normal RV function, grade 2 diastolic dysfunction, PASP of 55, as well as moderate AR, mild-mod MR, and moderate TR. Pro-BNP 2900 from 2800 last admission. Appears euvolemic. Assessment & Plan (12/01/2018 5:24 PM CDT): Patient with reported CHF. On review of 2nd chart patient's TTE 7 showed normal EF 67%, normal RV function, grade 2 diastolic dysfunction, PASP of 55, as well as moderate AR, mild-mod MR, and moderate TR. Pro-BNP 2900 from 2800 last admission. Appears euvolemic. - IVF as above with go neg 1-2 L, auto-diuresing - Does have multiple valvular abnormalities for which HILLARY was recommended. Do not think TTE or HILLARY would knife changer at this time but patient would likely benefit from cardiology input as outpatient. Assessment & Plan (11/30/2018 5:34 PM CDT): Patient with reported CHF. On review of 2nd chart patient's TTE 71 showed normal EF 67%, normal RV function, grade 2 diastolic dysfunction, PASP of 55, as well as moderate AR, mild-mod MR, and moderate TR. Pro-BNP 2900 from 2800 last admission. Wt 239lbs (previous admission went from 239--236lbs). Suspect patient has mild acute on chronic diastolic CHF exacerbation. Currently appears hypovolemic and dry despite JVD that is likely 2/2 TR - IVF as above with go neg 1-2 L, auto-diuresing - Lungs clear on exam - wean O2 as able -Does have multiple valvular abnormalities for which HILLARY was recommended. Do not think TTE or HILLARY would knife changer at this time but patient would likely benefit from cardiology input as outpatient. Assessment & Plan (11/29/2018 12:21 PM CDT): Patient with reported CHF. On review of 2nd chart patient's TTE 10/26 showed normal EF 67%, normal RV function, grade 2 diastolic dysfunction, PASP of 55, as well as moderate AR, mild-mod MR, and moderate TR. Pro-BNP 2900 from 2800 last admission. Wt 239lbs (previous admission went from 239--236lbs). -Suspect patient has mild acute on chronic diastolic CHF exacerbation. Currently appears hypovolemic as above. -Does have JVD likely related to her TR. -Recommend holding diuretics and giving gentle fluids as above. Once patient no longer self diuresing, d/c IVF. -Treating BP as as below. -Does have multiple valvular abnormalities for which HILLARY was recommended. Do not think TTE or HILLARY would knife changer at this time but patient would likely benefit from cardiology input as outpatient. NEREYDA on CPAP 11/27/2018 Assessment & Plan (12/30/2023 11:11 PM CDT): Cont CPAP Assessment & Plan (06/07/2021 2:28 PM SOLAR MANUFACTURER'S REPRESENTATIVE): Pt uses home nightly CPAP Assessment & Plan (06/06/2021 2:58 PM SOLAR MANUFACTURER'S REPRESENTATIVE): Pt uses home nightly CPAP Assessment & Plan (06/05/2021 7:15 PM SOLAR MANUFACTURER'S REPRESENTATIVE): Pt uses home nightly CPAP Assessment & Plan (06/04/2021 9:49 AM SOLAR MANUFACTURER'S REPRESENTATIVE): Pt uses home nightly CPAP Assessment & Plan (06/03/2021 10:29 AM SOLAR MANUFACTURER'S REPRESENTATIVE): Pt uses home nightly CPAP Assessment & Plan (06/02/2021 12:54 PM SOLAR MANUFACTURER'S REPRESENTATIVE): Pt uses home nightly CPAP Assessment & Plan (06/01/2021 12:36 PM SOLAR MANUFACTURER'S REPRESENTATIVE): Pt uses home nightly CPAP Assessment & Plan (05/31/2021 11:07 AM SOLAR MANUFACTURER'S REPRESENTATIVE): Pt uses home nightly CPAP Assessment & Plan (05/30/2021 10:50 AM SOLAR MANUFACTURER'S REPRESENTATIVE): Pt uses home nightly CPAP Assessment & Plan (05/29/2021 1:34 PM SOLAR MANUFACTURER'S REPRESENTATIVE): Pt uses home nightly CPAP Assessment & Plan (05/28/2021 10:50 AM SOLAR MANUFACTURER'S REPRESENTATIVE): Pt uses home CPAP Assessment & Plan (05/27/2021 9:47 AM SOLAR MANUFACTURER'S REPRESENTATIVE): Pt uses home CPAP Assessment & Plan (05/26/2021 5:15 PM SOLAR MANUFACTURER'S REPRESENTATIVE): Pt uses home CPAP Assessment & Plan (12/05/2018 2:29 PM CDT): - Home CPAP Assessment & Plan (12/04/2018 10:32 AM CDT): - Home CPAP Assessment & Plan (12/03/2018 10:36 AM CDT): - Home CPAP Assessment & Plan (12/01/2018 5:24 PM CDT): - Home CPAP Assessment & Plan (11/30/2018 5:31 PM CDT): -Cont home CPAP, encourage use overnight Assessment & Plan (11/29/2018 12:21 PM CDT): -Cont home CPAP. IFG (impaired fasting glucose) 11/20/2018 Heart failure with preserved ejection fraction ( CMS/HCC) 10/26/2018 Assessment & Plan (12/30/2023 11:15 PM CDT): Euvolemic on exam, breathing comfortably on room air. Systolic BP 90-110. TTE 04/2021 with LVEF 70%, mod LVH, impaired LV relaxation and mildly impaired LV strain, mod pericardial effusion without definitive evidence of hemodynamic compromise - Continue labetalol 400 TID and amlodipine 10 daily with holding parameters to avoid hypotension - Continue Lasix 80 BID - Remainder of volume management by HD Assessment & Plan (03/02/2023 11:59 AM SOLAR MANUFACTURER'S REPRESENTATIVE): No signs of exacerbation. Last TTE done on 02/2021 Ejection fraction 70%, normal RV/LV size and systolic function with mild pericardial effusion without collapse and hemodynamically stable. Chest x-ray 03/01/2023 low lung volumes, no pleural effusions, opacity noted, cardiomegaly noted; ECG: NSR; Exacerbation: not currently, A-fib: no - Medications: amlodipine 10 mg daily, labetalol 200 mg t.i.d, furosemide 40 mg b.i.d, - HD t/t/sat and monitoring I/O's - Pt on telemetry at this time - Low Salt diet, PO fluid <2L day - Maintain O2 sats >90 % O2 supplementation as needed - Have advised life style modifications, maintaining healthy diet/weight, smoking, and limiting consumption of ETOH. Assessment & Plan (05/15/2021 2:07 PM SOLAR MANUFACTURER'S REPRESENTATIVE): Recent admission for pericardial effusion and volume overload. TTE with large pericardial effusion was seen by cardiology and thoracic surgery with plan for conservative management and diuresis Have not directly reimaged pericardial effusion thus far during admission Currently HDS, continue anti-hypertensives Holding Lasix as above Assessment & Plan (05/14/2021 3:23 PM SOLAR MANUFACTURER'S REPRESENTATIVE): Recent admission for pericardial effusion and volume overload. TTE with large pericardial effusion was seen by cardiology and thoracic surgery with plan for conservative management and diuresis Have not directly reimaged pericardial effusion thus far during admission Currently HDS, continue anti-hypertensives Holding Lasix as above Assessment & Plan (05/13/2021 11:09 AM SOLAR MANUFACTURER'S REPRESENTATIVE): Recent admission for pericardial effusion and volume overload. TTE with large pericardial effusion was seen by cardiology and thoracic surgery with plan for conservative management and diuresis -currently HDS, continue anti-hypertensives -holding diuretics as elsewhere Assessment & Plan (05/12/2021 12:01 PM SOLAR MANUFACTURER'S REPRESENTATIVE): Recent admission for pericardial effusion and volume overload. TTE with large pericardial effusion was seen by cardiology and thoracic surgery with plan for conservative management and diuresis -currently HDS, continue anti-hypertensives -holding diuretics as elsewhere Assessment & Plan (05/11/2021 1:14 PM SOLAR MANUFACTURER'S REPRESENTATIVE): Recent admission for pericardial effusion and volume overload. TTE with large pericardial effusion was seen by cardiology and thoracic surgery with plan for conservative management and diuresis -currently HDS, continue anti-hypertensives -holding diuretics as elsewhere Assessment & Plan (10/28/2018 11:43 AM CDT): TTE on 10/26 revealed dilated LV w/ eccentric LVH and normal systolic function (LVEF 67%), consistent with a diagnosis of Heart Failure with Preserved Ejection Fraction. Of note, TTE also revealed moderate aortic regurgitation. Plan - Lasix diuresis (see above) - Will notify PCP for outpatient management Assessment & Plan (10/27/2018 4:52 PM CDT): TTE on 10/26 revealed dilated LV w/ eccentric LVH and normal systolic function (LVEF 67%), consistent with a diagnosis of Heart Failure with Preserved Ejection Fraction. Of note, TTE also revealed moderate aortic regurgitation. Plan - Diuresis with lasix (see above) 40 mg IV daily - Will notify PCP for outpatient management Assessment & Plan (10/27/2018 3:03 PM CDT): -Cardiology c/s -Per patient she was on Lasix 40 mg/day and was recently decreased to 20 mg/day d/t her kidney function worsening. On exam yesterday, actively SOB. Likely needs to be on increased diuresis for heart function, but will f/u with cardiology formal recommendations Assessment & Plan (10/26/2018 5:21 PM CDT): TTE on 10/26 revealed dilated LV w/ eccentric LVH and normal systolic function (LVEF 67%), consistent with a diagnosis of Heart Failure with Preserved Ejection Fraction. Of note, TTE also revealed moderate aortic regurgitation. Plan - Cardiology consult - Diuresis with lasix (see above) 40 mg IV daily Encounter for aftercare following kidney transpl ant 10/26/2018 Assessment & Plan (10/27/2018 2:59 PM CDT): Patient's s/p DDKT at the [facility] in 2007. Of note patient has also been followed at [facility], but most recently continues to follow her care at [facility] since 2016. -Cr somewhat improved with thomas catheter placement. Urology c/s; per their recommendations, d/c and attempt void trial. -Patient diuresed with 40 Lasix d/t volume overload, SOB; UOP 3.6L -BK pending, CMV and HLA negative -Thought to be d/t new diagnosis of heart failure Assessment & Plan (10/26/2018 6:35 PM CDT): Patient's s/p DDKT at the [facility] in 2007. Of note patient has also been followed at [facility], but most recently continues to follow her care at [facility] since 2016. -Patient recently admitted in 08/2018 d/t MARIBELL, baseline Cr was 1.2-1.4 until 06/2018 where it has been found to be 2.2-2.8. She was evaluated by urology who recommended IR c/s; and the patient left the hospital AMA -She re-presents to [facility] 10/25 with MARIBELL, BLE edema, and SOB. Renal US demonstrates mild hydro, thomas catheter placed, and Cr slightly improved. UOP 3L -TTE done today does demonstrate PA pressure 55. Will recommend diuresis, patient also endorses being SOB -BK and CMV levels pending; HLA labs pending Encounter for long-term (cur rent) use of high-risk medication 10/26/2018 Assessment & Plan (10/26/2018 6:32 PM CDT): FK level prior to admission 3.9. For now, will continues FK 7 mg in the AM and 6 mg in the PM, and Prednisone 5 mg/day Anemia due to chronic kidney disease 10/25/2018 Assessment & Plan (03/02/2023 11:59 AM SOLAR MANUFACTURER'S REPRESENTATIVE): Likely secondary to ESRD. Continue as planned under the ESRD - continue IV iron supplements q 2 weeks. - EPO 30365 units IV t.i.d. Friday on days not getting hemodialysis - CBC daily Assessment & Plan (06/07/2021 2:27 PM SOLAR MANUFACTURER'S REPRESENTATIVE): Hgb on admission related to anemia of CKD as well as component of HERNANDEZ. Baseline Hgb ~8 - Hgb matteo of 6.3 and now s/p 2 unit PRBCs total this admit with improvement to ~7-8, last transfusion on 06/01 - Continue iron supplements, continue to monitor with daily CBC & transfuse Hgb <7 - Repeat iron panel was hemolyzed by iron returned at 23 and ferritin markedly elevated at 1292 - No signs/symptoms of bleed Assessment & Plan (06/05/2021 7:09 PM SOLAR MANUFACTURER'S REPRESENTATIVE): Hgb on admission related to anemia of CKD as well as component of HERNANDEZ. Baseline Hgb ~8 - Hgb matteo of 6.3 and now s/p 2 unit PRBCs total this admit with improvement to ~7-8, last transfusion on 06/01 - Continue iron supplements, continue to monitor with daily CBC & transfuse Hgb <7 - Repeat iron panel was hemolyzed by iron returned at 23 and ferritin markedly elevated at 1292 - No signs/symptoms of bleed Assessment & Plan (06/04/2021 9:42 AM SOLAR MANUFACTURER'S REPRESENTATIVE): Hgb on admission related to anemia of CKD as well as component of HERNANDEZ. Baseline Hgb ~8 - Hgb matteo of 6.3 and now s/p 2 unit PRBCs total this admit with improvement to ~7-8, last transfusion on 06/01 - Continue iron supplements, continue to monitor with daily CBC & transfuse Hgb <7 - Repeat iron panel was hemolyzed by iron returned at 23 and ferritin markedly elevated at 1292 - No signs/symptoms of bleed Assessment & Plan (06/03/2021 10:27 AM SOLAR MANUFACTURER'S REPRESENTATIVE): Hgb on admission related to anemia of CKD as well as component of HERNANDEZ. Baseline Hgb ~8 - Hgb matteo of 6.3 and now s/p 2 unit PRBCs total this admit with improvement to ~7-8, last transfusion on 06/01 - Continue iron supplements, continue to monitor with daily CBC & transfuse Hgb <7 - Repeat iron panel was hemolyzed by iron returned at 23 and ferritin markedly elevated at 1292 - No signs/symptoms of bleed Assessment & Plan (06/02/2021 12:50 PM SOLAR MANUFACTURER'S REPRESENTATIVE): Hgb on admission related to anemia of CKD as well as component of HERNANDEZ. Baseline Hgb ~8 - Hgb matteo of 6.3 and now s/p 2 unit PRBCs total this admit with improvement to ~7-8, last transfusion on 06/01 - Continue iron supplements - Continue to monitor with daily CBC & transfuse Hgb <7 - Repeat iron panel was hemolyzed by iron returned at 23 and ferritin markedly elevated at 1292 - No signs/symptoms of bleed Assessment & Plan (06/01/2021 12:32 PM SOLAR MANUFACTURER'S REPRESENTATIVE): Hgb on admission related to anemia of CKD as well as component of HERNANDEZ. Baseline Hgb ~8 - Hgb matteo of 6.3 and s/p 1 unit PRBCs with improvement to ~7 - Continue iron supplements - Continue to monitor with daily CBC & transfuse Hgb <7 - dropped to 6.6 and will transfuse another 1 unit today - Repeat iron panel was hemolyzed by iron returned at 23 and ferritin markedly elevated at 1292 - No signs/symptoms of bleed Assessment & Plan (05/31/2021 11:04 AM SOLAR MANUFACTURER'S REPRESENTATIVE): Hgb on admission related to anemia of CKD as well as component of HERNANDEZ. Baseline Hgb ~8 - Hgb matteo of 6.3 and s/p 1 unit PRBCs with improvement to ~7 since - Continue iron supplements - No signs/symptoms of bleeding, continue to monitor with daily CBC & transfuse Hgb <7 - Repeat iron panel was hemolyzed by iron returned at 23 and ferritin markedly elevated at 1292 - She will likely need another unit tonight as Hgb was 7.1 this AM Assessment & Plan (05/30/2021 10:45 AM SOLAR MANUFACTURER'S REPRESENTATIVE): Hgb on admission related to anemia of CKD as well as component of HERNANDEZ. Baseline Hgb ~8 - Hgb matteo of 6.3 and s/p 1 unit PRBCs with improvement to ~7 since - Continue iron supplements - No signs/symptoms of bleeding, continue to monitor & transfuse Hgb <7 - Repeat iron panel/ferritin with AM labs Assessment & Plan (05/29/2021 1:29 PM SOLAR MANUFACTURER'S REPRESENTATIVE): Hgb on admission related to anemia of CKD as well as component of HERNANDEZ. Baseline Hgb ~8 - Hgb matteo of 6.3 and s/p 1 unit PRBCs with improvement to ~7 since - Continue iron supplements - No signs/symptoms of bleeding, continue to monitor & transfuse Hgb <7 Assessment & Plan (05/28/2021 10:50 AM SOLAR MANUFACTURER'S REPRESENTATIVE): S/p 1 unit pRBCs 05/26 Recent Labs Lab Units 05/28/21 0519 05/27/21 0433 05/26/21 1308 HEMOGLOBIN g/dL 7.7* 7.7* 7.7* Transfuse prn to keep Hgb>7 Anemia of chronic disease Hgb on admission related to anemia of CKD as well as component of HERNANDEZ. -continue iron supplements Assessment & Plan (05/27/2021 9:47 AM SOLAR MANUFACTURER'S REPRESENTATIVE): S/p 1 unit pRBCs 05/26 Recent Labs Lab Units 05/27/21 0433 05/26/21 1308 05/26/21 0415 HEMOGLOBIN g/dL 7.7* 7.7* 6.3* Transfuse prn to keep Hgb>7 Anemia of chronic disease Hgb on admission related to anemia of CKD as well as component of HERNANDEZ. -continue iron supplements Assessment & Plan (05/26/2021 5:15 PM SOLAR MANUFACTURER'S REPRESENTATIVE): S/p 1 unit pRBCs 05/26 Recent Labs Lab Units 05/26/21 1308 05/26/21 0415 HEMOGLOBIN g/dL 7.7* 6.3* Transfuse prn to keep Hgb>7 Anemia of chronic disease Hgb on admission related to anemia of CKD as well as component of HERNANDEZ. -continue iron supplements Assessment & Plan (05/14/2021 3:24 PM SOLAR MANUFACTURER'S REPRESENTATIVE): Hgb 9.2. Baseline ~8-9 related to anemia of CKD as well as component of HERNANDEZ. -continue iron supplements Assessment & Plan (05/10/2021 1:19 AM SOLAR MANUFACTURER'S REPRESENTATIVE): Hgb 9.2. Baseline ~8-9 related to anemia of CKD as well as component of HERNANDEZ. -continue iron supplements Assessment & Plan (10/28/2018 11:42 AM CDT): Hgb 8.7 today. Hgb previously on 10-12 range. Suspect worsening anemia is due to worsening renal function over the last several months. - Iron panel indicates Fe deficiency (transferrin sat < 20%). Treating now with oral Fe tablets (325 mg daily) Assessment & Plan (10/27/2018 4:49 PM CDT): Hgb 8.7 today. Hgb previously on 10-12 range. Suspect worsening anemia is due to worsening renal function over the last several months. - Iron panel re-ordered because last (10/25) was hemolyzed. - Consult nephrology for guidance regarding EPO treatment - Transfuse for Hgb <7 Assessment & Plan (10/27/2018 3:02 PM CDT): Stool guiac negative, not noted to be black or tarry -Possibly d/t fluid overload in conjunction with decreased kidney function, no s/s of active bleeding -Iron panel done, Tsat 18; consider IV iron infusion Assessment & Plan (10/26/2018 6:36 PM CDT): Stool guiac negative, not noted to be black or tarry -Possibly d/t fluid overload in conjunction with decreased kidney function, no s/s of active bleeding -Continue to monitor daily Assessment & Plan (10/26/2018 2:54 PM CDT): Hgb 8.7 today. Hgb previously on 10-12 range. Suspect worsening anemia is due to worsening renal function over the last several months. - Check iron panel, retic count, ferritin, T&S, coags - Consult nephrology for guidance regarding EPO treatment - Transfuse for Hgb <7 Assessment & Plan (10/25/2018 3:36 AM CDT): -Hgb 8.7 at OSH. Last Hgb 9.3 on 10/10/18. Hgb previously on 10-12 range. Suspect worsening anemia is due to worsening renal function over the last several months. She also reports a hx of peptic ulcers and reports having 2 episodes of black stool over the last 2 days which is c/f UGIB. -PPI IV for possible UGIB. Will need GI c/s and EGD with Hgb downtrends -Check iron panel, retic count, ferritin, T&S, coags -Transfuse for Hgb <7 Volume overload 10/25/2018 Assessment & Plan (08/05/2020 11:07 AM CDT): -mildly hypervolemic on exam at admission, now euvolemic. - Cont lasix 80mg bid for now and place on strict I/Os Assessment & Plan (08/03/2020 2:51 AM CDT): -mildly hypervolemic on exam. Cont lasix 80mg bid for now and place on strict I/Os Assessment & Plan (10/28/2018 11:43 AM CDT): YANG improving now with diuresis. UOP 3.6L yesterday. Will continue diuresis with Lasix 80 mg PO BID. If Cr continues to downtrend, will d/c on this regimen. Assessment & Plan (10/26/2018 4:45 PM CDT): - Presenting with 1 week AYNG and orthopnea and LE edema. CXR at OSH with mild pulmonary edema. Volume overload may be due to worsening renal function +/- new diagnosis of CHF. - Decreased Cr following thomas catheter suggests post-renal obstruction as contributor to volume overload - TTE on 10/26 showed diastolic dysfunction w/ preserved EF, indicating that the patient also has heart failure, which is likely a stunt driver of her volume overload. Plan - Consult cardiology - IV Lasix (40mg) to diurese, per Renal consult -Management of MARIBELL on CKD as discussed elsewhere Assessment & Plan (10/25/2018 3:29 AM CDT): -Presenting with 1 week YANG and orthopnea and LE edema. CXR at OSH with mild pulmonary edema. 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 - Cont tacrolimus per transplant team. 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 Cont tacrolimus. 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 She states she has not been on CellCept or Myfortic since 2007 or 2008. - Renal transplant in agreement with d/c today - Tac trough adequate Assessment & Plan (10/27/2018 4:48 PM CDT): -s/p DDKT 2007 at [facility] -Immunosuppression: cont tacrolimus 7mg QAM/6mg QPM, prednisone 5. She states she has not been on CellCept or Myfortic since 2007 or 2008. - Check tac trough - Followed by renal transplant service Assessment & Plan (10/26/2018 2:45 PM CDT): -s/p DDKT 2007 at [facility] -Immunosuppression: cont tacrolimus 7mg QAM/6mg QPM, prednisone 5. She states she has not been on CellCept or Myfortic since 2007 or 2008. - Check tac trough - Followed by renal transplant service Assessment & Plan (10/25/2018 3:31 AM CDT): -s/p DDKT 2007 at [facility] -Immunosuppression: cont tacrolimus 7mg QAM/6mg QPM, prednisone 5. She states she has not been on CellCept or Myfortic since 2007 or 2008. 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 PTH: 174, 162, End stage renal disease ([facility]/HCC) Assessment & Plan (01/01/2024 9:47 AM CDT): S/p DDKT 2007 but back on HD. Still makes urine. Access is typically LUE AVF. Reports adherence to Envarsus 3 mg daily, prednisone 5 mg daily (prev documented as not taking) - Continue Envarsus 3 mg daily, prednisone 5 daily with daily tacrolimus troughs - tacrolimus trough from 12/30 below 0.1. She reports being adherent with Envarsus 3 mg daily. Tac trough from this morning pending, she said she will reach out to her coordinator from renal transplant post discharge for instructions. Pre-transplant evaluation for kidney transplant Immunizations Immunization Administration Dates Next Due Hep B Vaccine 06/04/2006,05/07/2006,03/28/2006 Pfizer SARS-CoV-2 Monovalent Vaccination (12+ Yrs) ASHLEY-READY TO USE 12/12/2021,08/23/2021,07/26/2021 Pfizer Sars-Cov-2 Bivalent V accination (12+ YRS) 03/19/2022 Tdap 08/29/2016 Social History Tobacco Use Types Packs/Day Years Used Date Smoking Tobacco: Former Cigarettes 0.4 15.2 2 008 - 06/2022 Passive Smoke Exposure: Past Smokeless Tobacco: Never Tobacco Cessation:Counseling Given: Not Answered Alcohol Use Standard Drinks/Week Comments Never 0 (1 standard drink = 0.6 oz pur e alcohol) [facility] Utilities Answer Date Recorded In the past 12 months has [employer], gas, oil, or water [employer] threatened to shut off services in your home? Patient declined 01/01/2024 Humiliation, Afraid, Rape, and Kick questionnair e Answer Date Recorded Within the last year, have y ou been afraid of your partner or ex-partner? No 04/04/2021 Within the last year, have y ou been humiliated or emotionally abused in other ways by your partner or ex-partner? No Within the last year, have y ou been kicked, hit, slapped, or otherwise physically hurt by your partner or ex-partner? No 04/04/2021 Within the last year, have y ou been raped or forced to have any kind of sexual activity by your partner or ex-partner? No 04/04/2021 Social Connection and Isolation Panel [NHANES] A nswer Date Recorded In a typical week, how many times do you talk on the phone with family, friends, or neighbors? Patient declined 01/01/2024 How often do you get togethe r with friends or relatives? Patient declined 01/01/2024 How often do you attend yarsani or christian serv ices? Patient declined 01/01/2024 Do you belong to any clubs o r organizations such as yarsani groups, unions, fraternal or athletic groups, or school groups? Patient declined 01/01/2024 How often do you attend meet ings of the clubs or organizations you belong to? Patient declined 01/01/2024 Are you , , di vorced, , never , or living with a partner? Patient declined 01/01/2024 AUDIT-C Answer Date Recorded Q1: How often do you have a drink containing alcohol? Never 05/05/2024 Q2: How many drinks containi ng alcohol do you have on a typical day when you are drinking? Patient does not drink Q3: How often do you have si x or more drinks on one occasion? Never 05/05/2024 Overall Financial Resource Strain (CARDIA) Answe r Date Recorded How hard is it for you to pa y for the very basics like food, housing, medical care, and heating? Patient declined 01/01/2024 PHQ-2 Answer Date Recorded PHQ-2 Total Score 0 03/19/2023 Hunger Vital Sign Answer Date Recorded Within the past 12 months, y ou worried that your food would run out before you got the money to buy more. Patient declined Within the past 12 months, t he food you bought just didn't last and you didn't have money to get more. Patient declined 08/2023 PRAPARE - Transportation Answer Date Re corded In the past 12 months, has l ack of transportation kept you from medical appointments or from getting medications? Patient declined 01/01/2024 In the past 12 months, has l ack of transportation kept you from meetings, work, or from getting things needed for daily living? Patient declined 01/01/2024 Housing Stability Vital Sign Answer Aldair e Recorded In the last 12 months, was t here a time when you were not able to pay the mortgage or rent on time? No 04/23/2023 In the last 12 months, how many places have you lived? 1 04/23/2023 In the last 12 months, was t here a time when you did not have a steady place to sleep or slept in a care home (including now)? No 04/23/2023 Housing Stability Vital Sign Answer Aldair e Recorded In the last 12 months, was t here a time when you were not able to pay the mortgage or rent on time? Patient declined 01/01/20 24 In the past 12 months, how m any times have you moved where you were living? 0 01/01/2024 At any time in the past 12 m [facility], were you homeless or living in a care home (including now)? Patient declined 01/01/2024 Personal Safety Answer Date Recorded Have you ever been in or are you currently in a harmful physical or emotional relationship or is someone making you feel afraid or unsafe? Denies 02/13/2024 Education Answer Date Recorded What is the highest level of school you have completed or the highest degree you have received? 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, [employer]) 03/03/2023 Comments No Sex and Gender Information Value Date Recorded Sex Assigned at Not on file Legal Sex Female 1:10 PM SOLAR MANUFACTURER'S REPRESENTATIVE Gender Identity Not on file Sexual Orientation Not on file Last Filed Vital Signs Vital Sign Reading Time Taken Comments Blood Pressure 117/70 02/13/2024 9:20 PM CDT Pulse 79 02/13/2024 7:00 PM CDT Temperature 36.7 C (98.1 F) 02/13/2024 9:20 PM CDT Respiratory Rate 18 02/13/2024 7:00 PM CDT Oxygen Saturation 100% 02/13/2024 4:16 PM CDT Inhaled Oxygen Concentration - - Weight 87.1 kg (192 lb) 05/05/2024 3:16 PM SOLAR MANUFACTURER'S REPRESENTATIVE Height 162.6 cm (5' 4 ) 05/05/2024 3:16 PM SOLAR MANUFACTURER'S REPRESENTATIVE Body Mass Index 32.96 05/05/2024 3:16 PM SOLAR MANUFACTURER'S REPRESENTATIVE Results * (ABNORMAL) Tacrolimus, Highly Sensitive, LC/MS/MS (06/15/2024 10:01 AM SOLAR MANUFACTURER'S REPRESENTATIVE) Tacrolimus, Highly Sensitive, LC/MS/MS <1.0(L) mcg/L [facility] Comment: Verified by repeat analysis. No definitive therapeutic or toxic ranges have been established. Optimal blood drug levels are influenced by type of transplant, patient response, time post- transplant, co-administration of other drugs, and drug formulation. The following trough range is a suggested guideline: 5.0-20.0 mcg/L. 06/15/2024 10:0 1 AM SOLAR MANUFACTURER'S REPRESENTATIVE 06/15/2024 10:02 AM SOLAR MANUFACTURER'S REPRESENTATIVE Narrative [facility] - 06/18/2024 10:27 AM SOLAR MANUFACTURER'S REPRESENTATIVE LB Bruce Justice MD LAB BLOOD ORDERABLES Final Resu lt [facility] [address] [place] [address] * Cytomegalovirus (CMV) DNA PCR, quantitative (06/15/2024 10:01 AM SOLAR MANUFACTURER'S REPRESENTATIVE) Pathologist [facility] CMV DNA qn Not Detected Not Detected IU/mL [facility] CMV DNA log IU/mL Not Detected Not Detected Log IU/mL [facility] Comment: (Note) For additional information, please refer to http://education.[employer] Systems/faq/CMVandEBVPCR (This link is being provided for informational/educational purposes only.) [facility] [address] [address],[address] [facility] [address] Laurita Deleon MD, PhD 06/15/2024 10:0 1 AM SOLAR MANUFACTURER'S REPRESENTATIVE 06/15/2024 10:02 AM SOLAR MANUFACTURER'S REPRESENTATIVE Narrative [facility] - 06/18/2024 10:27 AM SOLAR MANUFACTURER'S REPRESENTATIVE LB Bruce Justice MD LAB MICROBIOLOGY - GENERAL ORDE KATLYN Final Result [facility] [address] [place] [address], [address] [place] [phone] * COPY(IES) SENT TO: (06/15/2024 10:01 AM SOLAR MANUFACTURER'S REPRESENTATIVE) COPY(IES) SENT TO: [facility] Comment: [facility] - COPY TO [address] [id number] 06/15/2024 10:0 1 AM SOLAR MANUFACTURER'S REPRESENTATIVE 06/15/2024 10:02 AM SOLAR MANUFACTURER'S REPRESENTATIVE Narrative [facility] - 06/18/2024 10:27 AM SOLAR MANUFACTURER'S REPRESENTATIVE LB Bruce Justice MD LAB BLOOD ORDERABLES Final Resu lt Performing Organization Address City/[facility]/ZIP Co de Phone Number [facility] * (ABNORMAL) BK virus, DNA, quantitative (06/15/2024 10:01 AM SOLAR MANUFACTURER'S REPRESENTATIVE) BK virus, PCR 41(A) Not Detected IU/mL [facility] BK Virus DNA, Real Time PCR 1.61(A) Not Detected Log IU/mL [facility] Comment: [facility] [address] [address],[address] [place] [address] Laurita Deleon MD, PhD 06/15/2024 10:0 1 AM SOLAR MANUFACTURER'S REPRESENTATIVE 06/15/2024 10:02 AM SOLAR MANUFACTURER'S REPRESENTATIVE Narrative [facility] - 06/18/2024 10:27 AM SOLAR MANUFACTURER'S REPRESENTATIVE LB Bruce Justice MD LAB MICROBIOLOGY - GENERAL MARY POTTS Final Result [facility] [address] [place] [address], [address] [place] [phone] * (ABNORMAL) CBC with auto differential (06/15/2024 10:01 AM SOLAR MANUFACTURER'S REPRESENTATIVE) WBC 7.8 3.8 - 10.8 Thousand/u L [facility] RBC, POC 3.64(L) 3.80 - 5.10 Million/uL [facility] Hgb 11.7 11.7 - 15.5 g/dL [facility] Hct 36.1 35.0 - 45.0 % [facility] MCV 99.2 80.0 - 100.0 fL [facility] MCH 32.1 27.0 - 33.0 pg [facility] MCHC 32.4 32.0 - 36.0 g/dL [facility] Comment: For adults, a slight decrease in the calculated MCHC value (in the range of 30 to 32 g/dL) is most likely not clinically significant; however, it should be interpreted with caution in correlation with other red cell parameters and the patient's clinical condition. Rdw 13.5 11.0 - 15.0 % [facility] Platelets 172 140 - 400 Thousand/u L [facility] MPV 11.9 7.5 - 12.5 fL [facility] Neutrophils, abs 5,476 1,500 - 7,800 cells/uL [facility] Lymphocytes, abs 1,310 850 - 3,900 cells/uL [facility] Monocyte abs 710 200 - 950 cells/uL [facility] Eosinophils, abs 273 15 - 500 cells/uL [facility] Basophils, abs 31 0 - 200 cells/uL [facility] Neutrophils 70.2 % [facility] Lymphocyte pct 16.8 % [facility] Monocytes 9.1 % [facility] Eosinophils 3.5 % [facility] Basophils 0.4 % [facility] 06/15/2024 10:0 1 AM SOLAR MANUFACTURER'S REPRESENTATIVE 06/15/2024 10:02 AM SOLAR MANUFACTURER'S REPRESENTATIVE Narrative [facility] - 06/18/2024 10:27 AM SOLAR MANUFACTURER'S REPRESENTATIVE LB us Bruce Justice MD LAB BLOOD ORDERABLES Final Resu lt [facility] [address] [place] [address] * (ABNORMAL) Protein / creatinine ratio, urine, random (06/15/2024 10:01 AM SOLAR MANUFACTURER'S REPRESENTATIVE) Creatinine, ur 21 20 - 275 mg/dL [facility] Protein/creati nine ratio 35,000(H) 24 - 184 mg/g creat [facility] Protein/Creati nine Ratio 35.000(H) 0.024 - 0.184 mg/mg creat [facility] Protein, ur, quant 735(H) 5 - 24 mg/dL [facility] Comment: Verified by repeat analysis. 06/15/2024 10:0 1 AM SOLAR MANUFACTURER'S REPRESENTATIVE 06/15/2024 10:02 AM SOLAR MANUFACTURER'S REPRESENTATIVE Narrative [facility] - 06/18/2024 10:27 AM SOLAR MANUFACTURER'S REPRESENTATIVE LB us Bruce Justice MD LAB URINE ORDERABLES Final Resu lt [facility] [address] [place] [address] * (ABNORMAL) Renal function panel (06/15/2024 10:01 AM SOLAR MANUFACTURER'S REPRESENTATIVE) Pathologist [facility] Glucose 90 65 - 99 mg/dL [facility] Comment: Fasting reference interval BUN 23 7 - 25 mg/dL [facility] Creatinine 7.19(H) 0.50 - 1.05 mg/dL [facility] eGFR 6(L) > OR = 60 mL/min/1.7 3m2 [facility] BUN/creat ratio 3(L) 6 - 22 (calc) [facility] Sodium 139 135 - 146 mmol/L [facility] Potassium, pl 4.6 3.5 - 5.3 mmol/L [facility] Chloride 96(L) 98 - 110 mmol/L [facility] CO2 31 20 - 32 mmol/L [facility] Calcium 9.6 8.6 - 10.4 mg/dL [facility] Phosphorus, sr 5.1(H) 2.1 - 4.3 mg/dL [facility] Albumin 3.8 3.6 - 5.1 g/dL [facility] 06/15/2024 10:0 1 AM SOLAR MANUFACTURER'S REPRESENTATIVE 06/15/2024 10:02 AM SOLAR MANUFACTURER'S REPRESENTATIVE Narrative [facility] - 06/18/2024 10:27 AM SOLAR MANUFACTURER'S REPRESENTATIVE LB Bruce Justice MD LAB BLOOD ORDERABLES Final Resu lt Performing Organization Address [facility] de Phone Number [facility] [address] [place] [address] * (ABNORMAL) Tacrolimus, Highly Sensitive, LC/MS/MS (05/11/2024 8:55 AM SOLAR MANUFACTURER'S REPRESENTATIVE) [facility] Tacrolimus, Highly Sensitive, LC/MS/MS 1.2(L) mcg/L [facility] Comment: No definitive therapeutic or toxic ranges have been established. Optimal blood drug levels are influenced by type of transplant, patient response, time post- transplant, co-administration of other drugs, and drug formulation. The following trough range is a suggested guideline: 5.0-20.0 mcg/L. 05/11/2024 8:55 AM SOLAR MANUFACTURER'S REPRESENTATIVE 05/11/2024 8:56 AM SOLAR MANUFACTURER'S REPRESENTATIVE Narrative [facility]ST - 05/15/2024 2:37 AM SOLAR MANUFACTURER'S REPRESENTATIVE LB FASTING:YES FASTING: YES Bruce Justice MD LAB BLOOD ORDERABLES Final Resu lt Performing Organization Address [facility] Co de Phone Number QUEST [facility] [address] [facility] [place] [address] * Cytomegalovirus (CMV) DNA PCR, quantitative (05/11/2024 8:55 AM SOLAR MANUFACTURER'S REPRESENTATIVE) [facility] CMV DNA qn Not Detected Not Detected IU/mL [facility] CMV DNA log IU/mL Not Detected Not Detected Log IU/mL [facility] Comment: (Note) For additional information, please refer to http://education.[employer].PSS Systems/faq/CMVandEBVPCR (This link is being provided for informational/educational purposes only.) [facility] [address] [address],[address] [facility] [id number] Laurita Deleon MD, PhD 05/11/2024 8:55 AM SOLAR MANUFACTURER'S REPRESENTATIVE 05/11/2024 8:56 AM SOLAR MANUFACTURER'S REPRESENTATIVE Narrative [facility] - 05/15/2024 2:37 AM SOLAR MANUFACTURER'S REPRESENTATIVE LB FASTING:YES FASTING: YES Bruce Justice MD LAB MICROBIOLOGY - GENERAL ORDE [facility] Final Result QUEST [facility] [address] [place] [address], [address] [place] [address] * COPY(IES) SENT TO: (05/11/2024 8:55 AM SOLAR MANUFACTURER'S REPRESENTATIVE) COPY(IES) SENT TO: QUEST Comment: [facility] KIDNEY - COPY TO [address] [address] 05/11/2024 8:55 AM SOLAR MANUFACTURER'S REPRESENTATIVE 05/11/2024 8:56 AM SOLAR MANUFACTURER'S REPRESENTATIVE Narrative [facility] - 05/15/2024 2:37 AM SOLAR MANUFACTURER'S REPRESENTATIVE LB FASTING:YES FASTING: YES Bruce Justice MD LAB BLOOD ORDERABLES Final Resu lt QUEST * BK virus, DNA, quantitative (05/11/2024 8:55 AM SOLAR MANUFACTURER'S REPRESENTATIVE) BK virus, PCR Not Detected Not Detected IU/mL [facility] BK Virus DNA, Real Time PCR Not Detected Not Detected Log IU/mL [facility] Comment: [facility] [address] [address],[address] [facility] [address] Laurita Deleon MD, PhD 05/11/2024 8:55 AM SOLAR MANUFACTURER'S REPRESENTATIVE 05/11/2024 8:56 AM SOLAR MANUFACTURER'S REPRESENTATIVE Narrative [facility] - 05/15/2024 2:37 AM SOLAR MANUFACTURER'S REPRESENTATIVE LB FASTING:YES FASTING: YES us Bruce Justice MD LAB MICROBIOLOGY - GENERAL MARY [facility]VIALEXX Final Result [facility]ST [facility] [address] [facility] [address], [address] [place] [address] * (ABNORMAL) CBC with auto differential (05/11/2024 8:55 AM SOLAR MANUFACTURER'S REPRESENTATIVE) Pathologist [facility] WBC 7.0 3.8 - 10.8 Thousand/u L [facility] RBC, POC 3.33(L) 3.80 - 5.10 Million/uL [facility] Hgb 10.6(L) 11.7 - 15.5 g/dL [facility] Hct 33.2(L) 35.0 - 45.0 % [facility] MCV 99.7 80.0 - 100.0 fL [facility] MCH 31.8 27.0 - 33.0 pg [facility] MCHC 31.9(L) 32.0 - 36.0 g/dL [facility] Comment: For adults, a slight decrease in the calculated MCHC value (in the range of 30 to 32 g/dL) is most likely not clinically significant; however, it should be interpreted with caution in correlation with other red cell parameters and the patient's clinical condition. Rdw 13.5 11.0 - 15.0 % [facility] Platelets 179 140 - 400 Thousand/u L [facility] MPV 11.2 7.5 - 12.5 fL [facility] Neutrophils, abs 4,683 1,500 - 7,800 cells/uL [facility] Lymphocytes, abs 1,225 850 - 3,900 cells/uL [facility] Monocyte abs 791 200 - 950 cells/uL [facility] Eosinophils, abs 273 15 - 500 cells/uL [facility] Basophils, abs 28 0 - 200 cells/uL [facility] Neutrophils 66.9 % [facility] Lymphocyte pct 17.5 % [facility] Monocytes 11.3 % [facility] Eosinophils 3.9 % [facility] Basophils 0.4 % [facility] 05/11/2024 8:55 AM SOLAR MANUFACTURER'S REPRESENTATIVE 05/11/2024 8:56 AM SOLAR MANUFACTURER'S REPRESENTATIVE Narrative [facility] - 05/15/2024 2:37 AM SOLAR MANUFACTURER'S REPRESENTATIVE LB FASTING:YES FASTING: YES Bruce Justice MD LAB BLOOD ORDERABLES Final Resu lt Performing Organization Address [facility] de Phone Number QUEST [facility] [address] [place] [address] * (ABNORMAL) Protein / creatinine ratio, urine, random (05/11/2024 8:55 AM SOLAR MANUFACTURER'S REPRESENTATIVE) Creatinine, ur 7(L) 20 - 275 mg/dL [facility] Protein/creati nine ratio 244,286(H) 24 - 184 mg/g creat [facility] Protein/Creati nine Ratio 244.286(H) 0.024 - 0.184 mg/mg creat [facility] Protein, ur, quant 1,710(H) 5 - 24 mg/dL [facility] Comment: Results verified by repeat analysis on dilution. 05/11/2024 8:55 AM SOLAR MANUFACTURER'S REPRESENTATIVE 05/11/2024 8:56 AM SOLAR MANUFACTURER'S REPRESENTATIVE Narrative [facility] - 05/15/2024 2:37 AM SOLAR MANUFACTURER'S REPRESENTATIVE LB FASTING:YES FASTING: YES Bruce Justice MD LAB URINE ORDERABLES Final Resu lt Performing Organization Address [facility] de Phone Number QUEST [facility] [address] [place] [address] * (ABNORMAL) Renal function panel (05/11/2024 8:55 AM SOLAR MANUFACTURER'S REPRESENTATIVE) Glucose 87 65 - 99 mg/dL [facility] Comment: Fasting reference interval BUN 17 7 - 25 mg/dL [facility] Comment: Verified by repeat analysis. Creatinine 6.92(H) 0.50 - 1.05 mg/dL [facility] Comment: Verified by repeat analysis. eGFR 6(L) > OR = 60 mL/min/1.7 3m2 [facility] BUN/creat ratio 2(L) 6 - 22 (calc) [facility] Sodium 137 135 - 146 mmol/L [facility] Potassium, pl 5.0 3.5 - 5.3 mmol/L [facility] Chloride 93(L) 98 - 110 mmol/L [facility] CO2 34(H) 20 - 32 mmol/L [facility] Calcium 9.7 8.6 - 10.4 mg/dL [facility] Phosphorus, sr 4.8(H) 2.1 - 4.3 mg/dL [facility] Albumin 3.6 3.6 - 5.1 g/dL [facility] 05/11/2024 8:55 AM SOLAR MANUFACTURER'S REPRESENTATIVE 05/11/2024 8:56 AM SOLAR MANUFACTURER'S REPRESENTATIVE Narrative [facility] - 05/15/2024 2:37 AM SOLAR MANUFACTURER'S REPRESENTATIVE LB FASTING:YES FASTING: YES us Bruce Justice MD LAB BLOOD ORDERABLES Final Resu lt [facility] [address] [place] [address] * (ABNORMAL) Tacrolimus, Highly Sensitive, LC/MS/MS (04/08/2024 9:41 AM SOLAR MANUFACTURER'S REPRESENTATIVE) Pathologist [facility] Tacrolimus, Highly Sensitive, LC/MS/MS <1.0(L) mcg/L [facility] Comment: Verified by repeat analysis. No definitive therapeutic or toxic ranges have been established. Optimal blood drug levels are influenced by type of transplant, patient response, time post- transplant, co-administration of other drugs, and drug formulation. The following trough range is a suggested guideline: 5.0-20.0 mcg/L. 04/08/2024 9:41 AM SOLAR MANUFACTURER'S REPRESENTATIVE 04/08/2024 9:42 AM SOLAR MANUFACTURER'S REPRESENTATIVE Narrative [facility] - 04/15/2024 4:01 AM SOLAR MANUFACTURER'S REPRESENTATIVE LB us Bruce Justice MD LAB BLOOD ORDERABLES Final Resu lt [facility] [address] [place] [address] * (ABNORMAL) Cytomegalovirus (CMV) DNA PCR, quantitative (04/08/2024 9:41 AM SOLAR MANUFACTURER'S REPRESENTATIVE) CMV DNA qn Results Below(A) Not Detected IU/mL [facility] Comment:Test not performed. Quantity not sufficient. CMV DNA log IU/mL Results Below(A) Not Detected Log IU/mL [facility] Comment: Test not performed. Quantity not sufficient. [facility] [address] [address],[address] [facility] [address] Laurita Deleon MD, PhD 04/08/2024 9:41 AM SOLAR MANUFACTURER'S REPRESENTATIVE 04/08/2024 9:42 AM SOLAR MANUFACTURER'S REPRESENTATIVE Narrative [facility] - 04/15/2024 4:01 AM SOLAR MANUFACTURER'S REPRESENTATIVE LB Bruce Justice MD LAB MICROBIOLOGY - GENERAL ORDE [facility] Final Result Performing Organization Address City/[facility]/ZIP Co de Phone Number QUEST [facility] [address] [address], [address] [place] [address] * COPY(IES) SENT TO: (04/08/2024 9:41 AM SOLAR MANUFACTURER'S REPRESENTATIVE) Pathologist [facility] COPY(IES) SENT TO: SAMIA Comment: [facility] ADMN [address] [place] [address] [facility] KIDNEY - COPY TO [facility] [address] [facility] [place] [address] 04/08/2024 9:41 AM SOLAR MANUFACTURER'S REPRESENTATIVE 04/08/2024 9:42 AM SOLAR MANUFACTURER'S REPRESENTATIVE Narrative [facility] - 04/15/2024 4:01 AM SOLAR MANUFACTURER'S REPRESENTATIVE LB Bruce Justice MD LAB BLOOD ORDERABLES Final Resu lt QUEST * BK virus, DNA, quantitative (04/08/2024 9:41 AM SOLAR MANUFACTURER'S REPRESENTATIVE) BK virus, PCR Not Detected Not Detected IU/mL [facility] BK Virus DNA, Real Time PCR Not Detected Not Detected Log IU/mL [facility] Comment: Your request to have a duplicate copy faxed has been acknowledged. Queued to: [id number] 04/08/2024 9:41 AM SOLAR MANUFACTURER'S REPRESENTATIVE 04/08/2024 9:42 AM SOLAR MANUFACTURER'S REPRESENTATIVE Narrative [facility] - 04/15/2024 4:01 AM SOLAR MANUFACTURER'S REPRESENTATIVE LB Bruce Justice MD LAB [facility] Final Result [facility]ST [facility] [address] [address], [address] [place] [address] * (ABNORMAL) CBC with auto differential (04/08/2024 9:41 AM SOLAR MANUFACTURER'S REPRESENTATIVE) Pathologist [facility] WBC 8.4 3.8 - 10.8 Thousand/u L [facility] RBC, POC 3.49(L) 3.80 - 5.10 Million/uL [facility] Hgb 11.4(L) 11.7 - 15.5 g/dL [facility] Hct 35.3 35.0 - 45.0 % [facility] MCV 101.1(H) 80.0 - 100.0 fL [facility] MCH 32.7 27.0 - 33.0 pg [facility] MCHC 32.3 32.0 - 36.0 g/dL [facility] Comment: For adults, a slight decrease in the calculated MCHC value (in the range of 30 to 32 g/dL) is most likely not clinically significant; however, it should be interpreted with caution in correlation with other red cell parameters and the patient's clinical condition. Rdw 14.0 11.0 - 15.0 % [facility] Platelets 205 140 - 400 Thousand/u L [facility] MPV 11.0 7.5 - 12.5 fL [facility] Neutrophils, abs 5,569 1,500 - 7,800 cells/uL [facility] Lymphocytes, abs 1,814 850 - 3,900 cells/uL [facility] Monocyte abs 764 200 - 950 cells/uL [facility] Eosinophils, abs 218 15 - 500 cells/uL [facility] Basophils, abs 34 0 - 200 cells/uL [facility] Neutrophils 66.3 % [facility] Lymphocyte pct 21.6 % [facility] Monocytes 9.1 % [facility] Eosinophils 2.6 % [facility] Basophils 0.4 % [facility] 04/08/2024 9:41 AM SOLAR MANUFACTURER'S REPRESENTATIVE 04/08/2024 9:42 AM SOLAR MANUFACTURER'S REPRESENTATIVE Narrative [facility] - 04/15/2024 4:01 AM SOLAR MANUFACTURER'S REPRESENTATIVE LB Bruce Justice MD LAB BLOOD ORDERABLES Final Resu lt [facility] [address] [place] [address] * (ABNORMAL) Protein / creatinine ratio, urine, random (04/08/2024 9:41 AM SOLAR MANUFACTURER'S REPRESENTATIVE) Creatinine, ur <1(L) 20 - 275 mg/dL [facility] Comment: Verified by repeat analysis. Protein/creatin ine ratio 24 - 184 mg/g creat [facility] Comment: Result not calculated because one or more required values not available. Protein/Creatin ine Ratio 0.024 - 0.184 mg/mg creat [facility] Comment: Result not calculated because one or more required values not available. Protein, ur, quant 478(H) 5 - 24 mg/dL [facility] Comment: Verified by repeat analysis. Results verified by repeat analysis on dilution. 04/08/2024 9:41 AM SOLAR MANUFACTURER'S REPRESENTATIVE 04/08/2024 9:42 AM SOLAR MANUFACTURER'S REPRESENTATIVE Narrative [facility] - 04/15/2024 4:01 AM SOLAR MANUFACTURER'S REPRESENTATIVE LB Bruce Justice MD LAB URINE ORDERABLES Final Resu lt Performing Organization Address City/[facility]/ZIP Co de Phone Number SAMAI [facility] [address] [address] [address] * (ABNORMAL) Renal function panel (04/08/2024 9:41 AM SOLAR MANUFACTURER'S REPRESENTATIVE) Glucose 82 65 - 99 mg/dL [facility] Comment: Fasting reference interval BUN 19 7 - 25 mg/dL [facility] Creatinine 7.49(H) 0.50 - 1.05 mg/dL [facility] eGFR 5(L) > OR = 60 mL/min/1.7 3m2 [facility] BUN/creat ratio 3(L) 6 - 22 (calc) [facility] Sodium 138 135 - 146 mmol/L [facility] Potassium, pl 4.9 3.5 - 5.3 mmol/L [facility] Chloride 96(L) 98 - 110 mmol/L [facility] CO2 27 20 - 32 mmol/L [facility] Calcium 10.5(H) 8.6 - 10.4 mg/dL [facility] Phosphorus, sr 5.9(H) 2.1 - 4.3 mg/dL [facility] Albumin 4.0 3.6 - 5.1 g/dL [facility] 04/08/2024 9:41 AM SOLAR MANUFACTURER'S REPRESENTATIVE 04/08/2024 9:42 AM SOLAR MANUFACTURER'S REPRESENTATIVE Narrative [facility] - 04/15/2024 4:01 AM SOLAR MANUFACTURER'S REPRESENTATIVE LB Bruce Justice MD LAB BLOOD ORDERABLES Final Resu lt Performing Organization Address [facility]/ZIP Co de Phone Number SAM[facility] [address] [address] [phone] * Hepatitis panel, acute Blood (12/03/2023 10:00 AM CDT) Hep A IgM Nonreactive Nonreactive Comment: Interpretive Data: If Hep A IgM Ab is reported as Equivocal, a new sample should be drawn in two weeks for testing. Current interpretive data was last revised on 19. Hep B core IgM Nonreactive Nonreactive [facility] Comment: Interpretive Data If HepB Core IgM Ab is reported as Equivocal, a new sample should be drawn in two weeks for testing. Current interpretive data was last revised on 19. Hep C Ab Nonreactive Nonreactive [facility] Comment: Interpretive Data Nonreactive: Antibodies to HCV not detected. Does NOT exclude the possibility of recent exposure to HCV. Equivocal: Equivocal for HCV antibodies. Supplemental molecular testing will be automatically performed to determine infection status in accordance with current CDC screening recommendations. Reactive: Positive for HCV antibodies. This may represent current or past HCV infection. Supplemental molecular testing will be automatically performed to determine current infection status in accordance with current CDC screening recommendations. Interpretive data was last revised on 2019. HepBsAg Nonreactive Nonreactive [facility] Blood 12/03/2023 10:0 0 AM CDT 12/03/2023 10:01 AM CDT us Anna Clarke MD LAB MICROBIOLOGY - GENERAL OR DERABLES Final Result [place] [address] [address] Department [place] [address] from Last 3 Months or Most Recently Relevant to Health Maintenance
--- OUTSIDE RECORDS SUMMARY | 2024-06-24 01:52 | XMS_ITS | Clinical Summary ---
Author Organization [facility] Address [address] [place] [address] Care Team Providers Care Senior Adults Director Name Role Phone Nikkie Gordon MD Primary Care Provider [phone] Tyson Bales MD Unavailable Unavailable Nikkie Gordon MD Unavailable Source Comments [facility],non-owned Affiliates and Associated Physician Practices is amultiple site organization consisting of ambulatory clinics and hospital sitesin [place], [place], [place] and [place]. This disclosure is being madepursuant to the Care Everywhere program and may not contain all information available regarding this patient. Last updated 18.[facility] Allergies Active Allergy Reactions Criticality Noted Date Comments Allopurinol Other Low 07/24/2017 Could not urinate while taking Bumex Other 10/25/2021 Pt states she can not take it Iodine Rash Medium 03/10/2020 Lisinopril Unknown High 03/15/2021 Does not remember but reports was very severe Losartan Diarrhea,Other Low 10/20/2020 Mycophenolate Sodium Other Low 08/02/2020 Kidney transplant VK virus Propane Other Medium 10/26/2018 Contrast Medications * Be aware that medications may not be up to date on this document. Alwaysverify current medications with the patient. Medication Sig Dispensed Refills Start Date End Date Status atorvastatin (LIPITOR) 10 MG tablet Take 10 mg by mouth at bedtime Active amLODIPine (NORVASC) 10 MG tablet Take 1 tablet by mouth once daily 90 tablet 3 11/20/2017 Active furosemide (LASIX) 20 MG tablet Take 2 tablets by mouth 2 times daily 180 tablet 3 01/22/2018 Active Additional Information Patient taking differently: 80 mgOral 2 TIMES DAILY, Reported on 10/25/2021 labetalol (NORMODYNE; TRANDATE) 200 MG tablet Take 2 tablets by mouth 3 times daily 540 tablet 3 02/02/2018 Active predniSONE (DELTASONE) 5 MG tabletIndications:Jeannette santiago replaced by transplant ([facility]) Take 1 tablet by mouth once daily Z94.0 90 tablet 3 07/09/2018 Active tacrolimus (PROGRAF) 1 MG capsuleIndications:His tory of renal transplantation ([facility]),Long-term use of immunosuppressant medication Taking 7 mg in the morning and 6 mg in the evening Z94.0 390 capsule 11 07/09/2018 Active Additional Information Patient taking differently: Taking 7 mg in the morning and 7 mg in the evening Z94.0, Reported on 10/25/2021 ethyl chloride (FLURO-ETHYL) spray APPLY TO ACCESS SITE PRIOR TO CANULATION 10/01/2021 Active folic acid (FOLVITE) 1 MG tablet Take 1 mg by mouth every morning 10/04/2020 Active sevelamer carbonate (RENVELA) 800 MG 10/17/2021 Active traMADol (ULTRAM) 50 MG tablet Take 50 mg by mouth every 6 hours as needed pain 06/20/2021 Active vitamin A (AQUASOL A) 15 MG/ML injection Inject 50,000 Units into muscle every Friday, Friday & Friday Active Heparin & NaCl Lock Flush (HEPARIN COMBINATION IV) Active Active Problems Problem Noted Date Diagnosed Date Heart murmur 11/06/2021 H/O ESRD (end stage renal disease) 08/27/2018 Overview (08/27/2018): H/O ESRD 2/2 HTN and atrophied kidneys, on HD (2005~2007). MARIBELL (acute kidney injury) 08/26/2018 Overview (08/27/2018): TXP US in 08/27/18: Severe TXP Hydronephrosis. CKD (chronic kidney disease) stage 3, GFR 30-59 ml/min 08/26/2018 Overview (08/27/2018): Baseline SCr: 1.2, 1.5-1.6, 2.5, 2.8 TXP US in 08/27/18: Severe hydronephrosis. 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, followed by Dr Adriel Riley in in [facility]. Essential hypertension 11/15/2015 Chronic kidney disease-mineral and bone disorder 11/15/2015 Overview (11/20/2017): Overview: PTH: 174, 162, Hydronephrosis with ureteral stricture, not elsewhere classified Family History Medical History Relation Name Comments Hypertension Father Hyperlipidemia Mother Hypertension Mother Hypertension Sister Relation Name Status Comments Father Mother Sister Social History Tobacco Use Types Packs/Day Years Used Date Smoking Tobacco: Every Day Cigarettes 0.5 11 Smokeless Tobacco: Never Tobacco Cessation:Counseling Given: Yes Alcohol Use Standard Drinks/Week Comments No 0 (1 standard drink = 0.6 oz pur e alcohol) Sex and Gender Information Value Date Recorded Sex Assigned at Not on file Gender Identity Not on file Sexual Orientation Not on file Last Filed Vital Signs Vital Sign Reading Time Taken Comments Blood Pressure 108/76 11/06/2021 9:26 AM CDT Pulse 70 11/06/2021 9:26 AM CDT Temperature 36.6 C (97.9 F) 10/25/2021 1:04 PM CDT Respiratory Rate 13 10/25/2021 1:35 PM CDT Oxygen Saturation 100% 10/25/2021 1:35 PM CDT Inhaled Oxygen Concentration - - Weight 87 kg (191 lb 12.8 oz) 11/06/2021 9:26 AM CDT Height 162.6 cm (5' 4 ) 11/06/2021 9:26 AM CDT Body Mass Index 32.92 11/06/2021 9:26 AM CDT Plan of Treatment Health Maintenance Due Date Last Done Comments BONE DENSITY TESTING 1955 COLOGUARD (AGES 45-75) - COLON CA SCREENING 1955 COLON MONITORING 1955 COLONOSCOPY - COLON CA SCREENING 1955 CT COLONOGRAPHY - COLON CA SCREENING 1955 Colorectal Cancer Screening 1955 FIT - COLON CA SCREENING 1955 FLEX SIG - COLON CA SCREENING 1955 MEDICARE AWV 12 MONTHS 1955 HEPATITIS C SCREENING 09/02/1973 DTAP/TDAP/TD VACCINES (1 - Tdap) 09/06/1974 PNEUMOCOCCAL VACCINE 50+ (1 of 2 - PCV) 09/06/1974 ZOSTER VACCINE (1 of 2) 09/06/1974 Respiratory Syncytial Virus (RSV) Vaccine Pt: or over 60 yrs (1 - Risk 60-74 years 1-dose series) 2015 SCREENING FOR DIABETES 11/05/2021 9, 09/19/2018, 08/27/2018, Additional history exists MAMMOGRAM 12/19/2023 12/18/2021, 11/30/2018 COVID-19 VACCINE ( season) 2023 12/12/2021, 08/23/2021, 07/26/2021 INFLUENZA VACCINE (#1) 2023 DEPRESSION SCREENING 04/28/2024 HEPATITIS B VACCINE Aged Out No longe r eligible based on patient's age to complete this topic HIB VACCINE Aged Out No longer eligi ble based on patient's age to complete this topic HPV VACCINE Aged Out No longer eligi ble based on patient's age to complete this topic MENINGOCOCCAL (Group B) VACCINE Aged Out No longer eligible based on patient's age to complete this topic MENINGOCOCCAL VACCINE Aged Out No александр alejandro eligible based on patient's age to complete this topic Goals Goal Patient Goal Type Associated Problems Recent Progress Patient-Stated? Author Medication Management General On track( 018 2:02 PM CDT) No Miley Barksdale, RN Note: Expected end date: Ongoing Interventions: Take all medications as prescribed Let your doctor know right away about any changes in your medications Make sure to request a refill of your medication at least one week prior to your last dose Procedures Procedure Name Priority Date/Time Associated Diagnosis Comments MAMMO BILAT SCREENING W JAGDEEP Routine 12/18/2021 11:15 AM CDT Encounter for screening mammogram for malignant neoplasm of breast COMPREHENSIVE METABOLIC PANEL Routine 10/10/2018 9:30 AM CDT 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) Long-term use of immunosuppressant medication 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 Chronic kidney disease-mineral and bone disorder from Last 3 Months or Most Recently Relevant to Health Maintenance Results * MAMMO BILAT SCREENING W JAGDEEP (12/18/2021 11:15 AM CDT) Anatomical Region Laterality Modality Breast Bilateral Mammography 12/24/2021 12:2 2 PM CDT Impressions 12/24/2021 1:17 PM CDT IMPRESSION: 1. Annual screening mammography is recommended. 2. CLINICAL FOLLOW-UP IS RECOMMENDED WITH BREAST SURGICAL CONSULTATION. Review of the available electronic medical records confirms a left-sided upper extremity arteriovenous hemodialysis shunt which is likely contributing to chronic fluctuating unilateral, left-sided asymmetrical breast edema. However, evaluation is recommended to exclude any clinical indication for skin punch biopsy in this patient. The patient is established with the [facility] and an electronic message was sent by Dr. Woodward to their office recommending follow-up. OVERALL FINAL ASSESSMENT: OVERALL FINAL ASSESSMENT: BI-RADS Category 2: Benign. Any decision to biopsy should be based upon clinical assessment. > Interpreting Provider: Kristi Woodward MD on 12/24/2021 1:17 PM Narrative 12/24/2021 1:17 PM CDT EXAMINATION: BILATERAL DIGITAL SCREENING MAMMOGRAM AND BILATERAL BREAST TOMOSYNTHESIS HISTORY: Screening. COMPARISON: Serial examinations dating back to 02/22/2021 TECHNIQUE: BILATERAL digital breast tomosynthesis (DBT) and synthetic 2D digital mammogram images were obtained (bilateral craniocaudal and mediolateral oblique projections) including computer aided detection (CAD.) BREAST PARENCHYMAL COMPOSITION:Category B: There are scattered areas of fibroglandular density. MAMMOGRAM FINDINGS: There is no suspicious finding in the RIGHT breast. There is LEFT breast edema with overall enlargement, trabecular thickening, and skin thickening anteriorly, compared with the right breast. Compared with the 02/15/2021 exam, the skin thickening and edema has improved substantially. There is no suspicious finding in the left breast parenchyma. Nikkie Gordon MD MAMMO ORDERABLES * (ABNORMAL) COMPREHENSIVE METABOLIC PANEL (10/10/2018 9:30 AM CDT) Glucose 84 65 - 99 mg/dL [facility] Comment: Fasting reference interval BUN 31(H) 7 - 25 mg/dL [facility] Creatinine 2.74(H) 0.50 - 0.99 mg/dL [facility] Comment: For patients >49 years of age, the reference limit for Creatinine is approximately 13% higher for people identified as -Dutch. eGFR by MDRD 18(L) > OR = 60 mL/min/1. 73m2 [facility] eGFR by MDRD 21(L) > OR = 60 mL/min/1. 73m2 [facility] BUN/Creatinine Ratio 11 6 - 22 (calc) [facility] Sodium 138 135 - 146 mmol/L [facility] Potassium 4.1 3.5 - 5.3 mmol/L [facility] Chloride 107 98 - 110 mmol/L [facility] CO2 22 20 - 32 mmol/L [facility] Calcium 8.9 8.6 - 10.4 mg/dL [facility] Protein Total 6.1 6.1 - 8.1 g/dL [facility] Albumin 4.0 3.6 - 5.1 g/dL [facility] Globulin Total 2.1 1.9 - 3.7 g/dL (calc) [facility] Albumin/Globulin Ratio 1.9 1.0 - 2.5 (calc) [facility] Bilirubin Total 0.5 0.2 - 1.2 mg/dL [facility] Alkaline Phosphatase 62 33 - 130 U/L [facility] AST 10 10 - 35 U/L [facility] ALT 9 6 - 29 U/L [facility] Comment: Test Performed at: [facility] [address] [place] [address] SHAN HOUSTON DO,MPH Blood BLOOD SPECIMEN / Unknown 10/10/2018 9:30 AM CDT 10/10/2018 9:34 AM CDT Jaiden Galicia PA-C LAB - CHEMISTRY ORDERABLES [facility] [address] [place] [address] from Last 3 Months or Most Recently Relevant to Health Maintenance Advance Directives * Full Code (Latest Code Status on File) Date Activated Date Inactivated Comments 08/26/2018 4:53 PM 08/28/2018 1:03 AM Care Teams Senior Adults Director Relationship Specialty Start Date End Date Nikkie Gordon MD [address] [place] [address] PCP - General Family Medicine 11/06/21 Nikkie Gordon MD [address] [place] [address] PCP - [facility] 10/27/23 Tyson Bales MD [address] [place] [address] Cardiovascular Disease 11/06/21
--- OUTSIDE RECORDS SUMMARY | 2024-06-24 01:52 | XMS_ITS | Encounter Summary ---
Author Organization [facility] Address [address] [place] [address] Phone Care Team Providers Care Ferry Engineer Name Role Phone Nikkie Gordon MD Primary Care Provider [phone] Encounter Details Date Type Department Care Team (Late st Contact Info) Description 08/13/2019 Orders Only [facility] [address] [place] [address] Trisha Bustillos MA [address] [place] [address] Chronic kidney disease, stage 3 (moderate) ([facility]) Social History Tobacco Use Types Packs/Day Years Used Date Smoking Tobacco: Every Day Cigarettes 0.5 11 Smokeless Tobacco: Never Alcohol Use Standard Drinks/Week Comments Never 0 (1 standard drink = 0.6 oz pur e alcohol) AUDIT-C Answer Date Recorded Frequency of Alcohol Consumption Never 02/01/2019 Average Number of Drinks Not on file 019 Frequency of Binge Drinking Not on file 10/2018 Comments Unknown Sex and Gender Information Value Date Recorded Sex Assigned at Not on file Legal Sex Female 6:10 PM EDT Gender Identity Not on file Sexual Orientation Not on file documented as of this encounter Plan of Treatment Not on file documented as of this encounter Visit Diagnoses Diagnosis Chronic kidney disease, stage 3 (moderate) documented in this encounter Care Teams Ferry Engineer Relationship Specialty Start Date End Date Nikkie Gordon MD [address] [place] [address] PCP - General 01/24/20 documented as of this encounter
--- OUTSIDE RECORDS SUMMARY | 2024-06-24 01:52 | XMS_ITS | Encounter Summary ---
Author Organization [facility] Address [address] [place] [address] Phone Care Team Providers Care Platform Supervisor Name Role Phone Nikkie Gordon MD Primary Care Provider [phone] Encounter Details Date Type Department Care Team ([facility] Contact Info) Description 04/23/2019 Orders Only [facility] [address] [place] [address] Trisha Bustillos MA [address] [place] [address] Chronic kidney disease, stage 3 (moderate) ([facility]) Social History Tobacco Use Types Packs/Day Years [...] (moderate) documented in this encounter Care Teams Platform Supervisor Relationship Specialty Start Date End Date Nikkie Gordon MD [address] [place] [address] PCP - General 01/24/20 documented as of this encounter
--- OUTSIDE RECORDS SUMMARY | 2024-06-24 01:52 | XMS_ITS | Encounter Summary ---
Author Organization [facility] Address [address] [place] [address] Phone Care Team Providers Care Manager Club Name Role Phone Nikkie Gordon MD Primary Care Provider [phone] Encounter Details Date Type Department Care Team ([facility] Contact Info) Description 05/21/2019 Orders Only [facility] [address] [place] [address] Trisha Bustillos MA [address] [place] [address] Chronic kidney disease, stage 3 (moderate) ([facility]) Social History Tobacco Use Types Packs/Day Years [...] (moderate) documented in this encounter Care Teams Manager Club Relationship Specialty Start Date End Date Nikkie Gordon MD [address] [place] [address] PCP - General 01/24/20 documented as of this encounter
--- OUTSIDE RECORDS SUMMARY | 2024-06-24 01:52 | XMS_ITS | Patient Health Summary ---
Author Organization [facility] Address [address] 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 This disclosure is being madepursuant to the Care Everywhere program and may not contain all information available regarding this patient. Last updated 18.[facility] Allergies * Allopurinol(Other) -Low Criticality * Bumex(Other) * Iodine(Rash) -Medium Criticality * Lisinopril(Unknown) -High Criticality * Losartan(Diarrhea,Other) -Low Criticality * Mycophenolate Sodium(Other) -Low Criticality * Propane(Other) -Medium Criticality Medications * Be aware that medications may not be up to date on this document. Alwaysverify current medications with the patient. * atorvastatin (LIPITOR) 10 MG tablet Take 10 mg by mouth at bedtime * amLODIPine (NORVASC) 10 MG tablet(Started 11/20/2017) Take 1 tablet by mouth once daily 3 refills remaining * furosemide (LASIX) 20 MG tablet(Started 01/22/2018) Take 2 tablets by mouth 2 times daily 3 refills remaining * labetalol (NORMODYNE; TRANDATE) 200 MG tablet(Started 02/02/2018) Take 2 tablets by mouth 3 times daily 3 refills remaining * predniSONE (DELTASONE) 5 MG tablet(Started 07/09/2018) Take 1 tablet by mouth once daily Z94.0 3 refills remaining * tacrolimus (PROGRAF) 1 MG capsule(Started 07/09/2018) Taking 7 mg in the morning and 6 mg in the evening Z94.0 11 refills remaining * ethyl chloride (FLURO-ETHYL) spray(Started 10/01/2021) APPLY TO ACCESS SITE PRIOR TO CANULATION * folic acid (FOLVITE) 1 MG tablet(Started 10/04/2020) Take 1 mg by mouth every morning * sevelamer carbonate (RENVELA) 800 MG(Started 10/17/2021) * traMADol (ULTRAM) 50 MG tablet(Started 06/20/2021) Take 50 mg by mouth every 6 hours as needed pain * vitamin A (AQUASOL A) 15 MG/ML injection Inject 50,000 Units into muscle every Friday, Friday & Friday * Heparin & NaCl Lock Flush (HEPARIN COMBINATION IV) Active Problems Problem Noted Date Diagnosed Date Heart murmur 11/06/2021 H/O ESRD (end stage renal disease) 08/27/2018 MARIBELL (acute kidney injury) 08/26/2018 CKD (chronic kidney disease) stage 3, GFR 30-59 ml/min 08/26/2018 Hyperuricemia 08/26/2018 Primary osteoarthritis of left knee 05/26/2018 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 018 Long-term use of immunosuppressant medication Tobacco dependence syndrome 02/02/2017 NEREYDA (obstructive sleep apnea) 06/27/2016 History of renal transplantation- S/P DDK-TXP in 200711/15/2015 Essential hypertension 11/15/2015 Chronic kidney disease-mineral and bone disorder 11/15/2015 Hydronephrosis with ureteral stricture, not elsewhere classified Social History Tobacco Use Types Packs/Day Years [...] Mass Index 32.92 11/06/2021 9:26 AM CDT Procedures * US THYROID(Performed 01/01/2022) Performed for Personal history of endocrine disorder * MAMMO BILAT SCREENING W JAGDEEP(Performed 12/18/2021) Performed for Encounter for screening mammogram for malignant neoplasm of breast * NM MYOCARD PERF REST STRESS(Performed 11/22/2021) Performed for H/O ESRD (end stage renal disease), Heart murmur * ECHOCARDIOGRAM 2D WITH DOPPLER(Performed 11/22/2021) Performed for H/O ESRD (end stage renal disease), Heart murmur * EKG 12-LEAD(Performed 11/06/2021) Performed for H/O ESRD (end stage renal disease), Heart murmur * CARDIAC RHYTHM STRIP ORDER(Performed 11/01/2021) * IR ANGIO AV SHUNT IMAGING(Performed 10/25/2021) Performed for Encounter regarding vascular access for dialysis for end-stage renal disease ([facility]) * BK VIRUS PCR QUANTITATIVE(Performed 10/10/2018) * PTH INTACT(Performed 10/10/2018) Performed for Kidney replaced by transplant ([facility]), Long-term use of immunosuppressant medication, 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, Chronic kidney disease-mineral and bone disorder, History of renal transplantation ([facility]), Hyperuricemia, Hyperlipidemia, unspecified hyperlipidemia type * URIC ACID BLOOD(Performed 10/10/2018) Performed for Kidney replaced by transplant ([facility]), Long-term use of immunosuppressant medication, 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, Chronic kidney disease-mineral and bone disorder, History of renal transplantation ([facility]), Hyperuricemia, Hyperlipidemia, unspecified hyperlipidemia type * IRON BLOOD(Performed 10/10/2018) Performed for Kidney replaced by transplant ([facility]), Long-term use of immunosuppressant medication, 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, Chronic kidney disease-mineral and bone disorder, History of renal transplantation ([facility]), Hyperuricemia, Hyperlipidemia, unspecified hyperlipidemia type * FERRITIN(Performed 10/10/2018) Performed for Kidney replaced by transplant ([facility]), Long-term use of immunosuppressant medication, 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, Chronic kidney disease-mineral and bone disorder, History of renal transplantation ([facility]), Hyperuricemia, Hyperlipidemia, unspecified hyperlipidemia type * TRANSFERRIN(Performed 10/10/2018) Performed for Kidney replaced by transplant ([facility]), Long-term use of immunosuppressant medication, 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, Chronic kidney disease-mineral and bone disorder, History of renal transplantation ([facility]), Hyperuricemia, Hyperlipidemia, unspecified hyperlipidemia type * LIPID PROFILE(Performed 10/10/2018) Performed for Kidney replaced by transplant ([facility]), Long-term use of immunosuppressant medication, 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, Chronic kidney disease-mineral and bone disorder, History of renal transplantation ([facility]), Hyperuricemia, Hyperlipidemia, unspecified hyperlipidemia type * VITAMIN D 25-HYDROXY(Performed 10/10/2018) Performed for Kidney replaced by transplant ([facility]), Long-term use of immunosuppressant medication, 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, Chronic kidney disease-mineral and bone disorder * CREATININE URINE RANDOM(Performed 10/10/2018) Performed for Kidney replaced by transplant ([facility]), Long-term use of immunosuppressant medication, 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, Chronic kidney disease-mineral and bone disorder * PROTEIN URINE RANDOM QUANTITATIVE(Performed 10/10/2018) Performed for Kidney replaced by transplant ([facility]), Long-term use of immunosuppressant medication, 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, Chronic kidney disease-mineral and bone disorder * URINALYSIS W/MICROSCOPIC NO CULTURE(Performed 10/10/2018) Performed for Kidney replaced by transplant ([facility]), Long-term use of immunosuppressant medication, 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, Chronic kidney disease-mineral and bone disorder * PHOSPHORUS BLOOD(Performed 10/10/2018) Performed for Kidney replaced by transplant ([facility]), Long-term use of immunosuppressant medication, 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, Chronic kidney disease-mineral and bone disorder * MAGNESIUM BLOOD(Performed 10/10/2018) Performed for 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), Long-term use of immunosuppressant medication, 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, Chronic kidney disease-mineral and bone disorder * COMPREHENSIVE METABOLIC PANEL(Performed 10/10/2018) Performed for 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), Long-term use of immunosuppressant medication, 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, Chronic kidney disease-mineral and bone disorder * CBC W AUTO DIFFERENTIAL(Performed 10/10/2018) Performed for Kidney replaced by transplant ([facility]), Long-term use of immunosuppressant medication, 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, Chronic kidney disease-mineral and bone disorder * TACROLIMUS LEVEL(Performed 10/10/2018) Performed for Kidney replaced by transplant ([facility]), Long-term use of immunosuppressant medication, 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, Chronic kidney disease-mineral and bone disorder * CULTURE URINE(Performed 10/10/2018) * BK VIRUS PCR QUANTITATIVE(Performed 09/19/2018) * PTH INTACT+CALCIUM(Performed 09/19/2018) * URIC ACID BLOOD(Performed 09/19/2018) Performed for Kidney replaced by transplant ([facility]), Long-term use of immunosuppressant medication, 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, Chronic kidney disease-mineral and bone disorder, History of renal transplantation ([facility]), Hyperuricemia, Hyperlipidemia, unspecified hyperlipidemia type * IRON BLOOD(Performed 09/19/2018) Performed for Kidney replaced by transplant ([facility]), Long-term use of immunosuppressant medication, 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, Chronic kidney disease-mineral and bone disorder, History of renal transplantation ([facility]), Hyperuricemia, Hyperlipidemia, unspecified hyperlipidemia type * FERRITIN(Performed 09/19/2018) Performed for Kidney replaced by transplant ([facility]), Long-term use of immunosuppressant medication, 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, Chronic kidney disease-mineral and bone disorder, History of renal transplantation ([facility]), Hyperuricemia, Hyperlipidemia, unspecified hyperlipidemia type * TRANSFERRIN(Performed 09/19/2018) Performed for Kidney replaced by transplant ([facility]), Long-term use of immunosuppressant medication, 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, Chronic kidney disease-mineral and bone disorder, History of renal transplantation ([facility]), Hyperuricemia, Hyperlipidemia, unspecified hyperlipidemia type * LIPID PROFILE(Performed 09/19/2018) Performed for Kidney replaced by transplant ([facility]), Long-term use of immunosuppressant medication, 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, Chronic kidney disease-mineral and bone disorder, History of renal transplantation ([facility]), Hyperuricemia, Hyperlipidemia, unspecified hyperlipidemia type * VITAMIN D 25-HYDROXY(Performed 09/19/2018) Performed for Kidney replaced by transplant ([facility]), Long-term use of immunosuppressant medication, 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, Chronic kidney disease-mineral and bone disorder * CREATININE URINE RANDOM(Performed 09/19/2018) Performed for Kidney replaced by transplant ([facility]), Long-term use of immunosuppressant medication, 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, Chronic kidney disease-mineral and bone disorder * PROTEIN URINE RANDOM QUANTITATIVE(Performed 09/19/2018) Performed for Kidney replaced by transplant ([facility]), Long-term use of immunosuppressant medication, 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, Chronic kidney disease-mineral and bone disorder * URINALYSIS W/MICROSCOPIC NO CULTURE(Performed 09/19/2018) Performed for Kidney replaced by transplant ([facility]), Long-term use of immunosuppressant medication, 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, Chronic kidney disease-mineral and bone disorder * PHOSPHORUS BLOOD(Performed 09/19/2018) Performed for Kidney replaced by transplant ([facility]), Long-term use of immunosuppressant medication, 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, Chronic kidney disease-mineral and bone disorder * MAGNESIUM BLOOD(Performed 09/19/2018) Performed for Kidney replaced by transplant ([facility]), Long-term use of immunosuppressant medication, 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, Chronic kidney disease-mineral and bone disorder * COMPREHENSIVE METABOLIC PANEL(Performed 09/19/2018) Performed for Kidney replaced by transplant ([facility]), Long-term use of immunosuppressant medication, 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, Chronic kidney disease-mineral and bone disorder * CBC W AUTO DIFFERENTIAL(Performed 09/19/2018) Performed for Kidney replaced by transplant ([facility]), Long-term use of immunosuppressant medication, 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, Chronic kidney disease-mineral and bone disorder * TACROLIMUS LEVEL(Performed 09/19/2018) Performed for Kidney replaced by transplant ([facility]), Long-term use of immunosuppressant medication, 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, Chronic kidney disease-mineral and bone disorder * CULTURE URINE(Performed 09/19/2018) * GLUCOSE - POINT OF CARE(Performed 08/27/2018) * US RENAL TRANSPLANT(Performed 08/27/2018) Performed for MARIBELL (acute kidney injury) ([facility]) * URINALYSIS REFLEX TO MICROSCOPIC NO CULTURE(Performed 08/27/2018) * GLUCOSE - POINT OF CARE(Performed 08/27/2018) * TACROLIMUS LEVEL(Performed 08/27/2018) * RENAL FUNCTION PANEL(Performed 08/27/2018) * CBC W AUTO DIFFERENTIAL(Performed 08/27/2018) * GLUCOSE - POINT OF CARE(Performed 08/26/2018) * URIC ACID URINE RANDOM(Performed 08/26/2018) Performed for History of renal transplantation ([facility]) * PROTEIN URINE RANDOM QUANTITATIVE(Performed 08/26/2018) Performed for History of renal transplantation ([facility]) * UREA NITROGEN URINE RANDOM(Performed 08/26/2018) Performed for History of renal transplantation ([facility]) * CREATININE URINE RANDOM(Performed 08/26/2018) Performed for History of renal transplantation ([facility]) * SODIUM URINE RANDOM(Performed 08/26/2018) Performed for History of renal transplantation ([facility]) * POTASSIUM URINE RANDOM(Performed 08/26/2018) * GLUCOSE - POINT OF CARE(Performed 08/26/2018) * RENAL FUNCTION PANEL(Performed 08/26/2018) * MAGNESIUM BLOOD(Performed 08/26/2018) * CBC W AUTO DIFFERENTIAL(Performed 08/26/2018) * BK VIRUS PCR QUANTITATIVE(Performed 08/22/2018) * PTH INTACT(Performed 08/22/2018) Performed for Kidney replaced by transplant ([facility]), Long-term use of immunosuppressant medication, 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, Chronic kidney disease-mineral and bone disorder, History of renal transplantation ([facility]), Hyperuricemia, Hyperlipidemia, unspecified hyperlipidemia type * URIC ACID BLOOD(Performed 08/22/2018) Performed for Kidney replaced by transplant ([facility]), Long-term use of immunosuppressant medication, 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, Chronic kidney disease-mineral and bone disorder, History of renal transplantation ([facility]), Hyperuricemia, Hyperlipidemia, unspecified hyperlipidemia type * IRON BLOOD(Performed 08/22/2018) Performed for Kidney replaced by transplant ([facility]), Long-term use of immunosuppressant medication, 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, Chronic kidney disease-mineral and bone disorder, History of renal transplantation ([facility]), Hyperuricemia, Hyperlipidemia, unspecified hyperlipidemia type * FERRITIN(Performed 08/22/2018) Performed for Kidney replaced by transplant ([facility]), Long-term use of immunosuppressant medication, 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, Chronic kidney disease-mineral and bone disorder, History of renal transplantation ([facility]), Hyperuricemia, Hyperlipidemia, unspecified hyperlipidemia type * TRANSFERRIN(Performed 08/22/2018) Performed for Kidney replaced by transplant ([facility]), Long-term use of immunosuppressant medication, 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, Chronic kidney disease-mineral and bone disorder, History of renal transplantation ([facility]), Hyperuricemia, Hyperlipidemia, unspecified hyperlipidemia type * LIPID PROFILE(Performed 08/22/2018) Performed for Kidney replaced by transplant ([facility]), Long-term use of immunosuppressant medication, 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, Chronic kidney disease-mineral and bone disorder, History of renal transplantation ([facility]), Hyperuricemia, Hyperlipidemia, unspecified hyperlipidemia type * VITAMIN D 25-HYDROXY(Performed 08/22/2018) Performed for Kidney replaced by transplant ([facility]), Long-term use of immunosuppressant medication, 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, Chronic kidney disease-mineral and bone disorder * CREATININE URINE RANDOM(Performed 08/22/2018) Performed for Kidney replaced by transplant ([facility]), Long-term use of immunosuppressant medication, 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, Chronic kidney disease-mineral and bone disorder * PROTEIN URINE RANDOM QUANTITATIVE(Performed 08/22/2018) Performed for Kidney replaced by transplant ([facility]), Long-term use of immunosuppressant medication, 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, Chronic kidney disease-mineral and bone disorder * URINALYSIS W/MICROSCOPIC NO CULTURE(Performed 08/22/2018) Performed for Kidney replaced by transplant ([facility]), Long-term use of immunosuppressant medication, 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, Chronic kidney disease-mineral and bone disorder * PHOSPHORUS BLOOD(Performed 08/22/2018) Performed for Kidney replaced by transplant ([facility]), Long-term use of immunosuppressant medication, 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, Chronic kidney disease-mineral and bone disorder * MAGNESIUM BLOOD(Performed 08/22/2018) Performed for Kidney replaced by transplant ([facility]), Long-term use of immunosuppressant medication, 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, Chronic kidney disease-mineral and bone disorder * COMPREHENSIVE METABOLIC PANEL(Performed 08/22/2018) Performed for Kidney replaced by transplant ([facility]), Long-term use of immunosuppressant medication, 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, Chronic kidney disease-mineral and bone disorder * CBC W AUTO DIFFERENTIAL(Performed 08/22/2018) Performed for 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), Long-term use of immunosuppressant medication, 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, Chronic kidney disease-mineral and bone disorder * TACROLIMUS LEVEL(Performed 08/22/2018) Performed for Kidney replaced by transplant ([facility]), Long-term use of immunosuppressant medication, 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, Chronic kidney disease-mineral and bone disorder * CULTURE URINE(Performed 08/22/2018) * PTH INTACT(Performed 07/25/2018) Performed for Recurrent UTI, Immunosuppression ([facility]), Long-term use of immunosuppressant medication, Kidney replaced by transplant ([facility]), Chronic kidney disease-mineral and bone disorder, BK viremia,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 * URIC ACID BLOOD(Performed 07/25/2018) Performed for Recurrent UTI, Immunosuppression ([facility]), Long-term use of immunosuppressant medication, Kidney replaced by transplant ([facility]), Chronic kidney disease-mineral and bone disorder, BK viremia,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 * IRON BLOOD(Performed 07/25/2018) Performed for Recurrent UTI, Immunosuppression ([facility]), Long-term use of immunosuppressant medication, Kidney replaced by transplant ([facility]), Chronic kidney disease-mineral and bone disorder, BK viremia,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 * FERRITIN(Performed 07/25/2018) Performed for Recurrent UTI, Immunosuppression ([facility]), Long-term use of immunosuppressant medication, Kidney replaced by transplant ([facility]), Chronic kidney disease-mineral and bone disorder, BK viremia,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 * TRANSFERRIN(Performed 07/25/2018) Performed for Recurrent UTI, Immunosuppression ([facility]), Long-term use of immunosuppressant medication, Kidney replaced by transplant ([facility]), Chronic kidney disease-mineral and bone disorder, BK viremia,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 * VITAMIN D 25-HYDROXY(Performed 07/25/2018) Performed for Recurrent UTI, Immunosuppression ([facility]), Long-term use of immunosuppressant medication, Kidney replaced by transplant ([facility]), Chronic kidney disease-mineral and bone disorder, BK viremia,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 * LIPID PROFILE(Performed 07/25/2018) Performed for Recurrent UTI, Immunosuppression ([facility]), Long-term use of immunosuppressant medication, Kidney replaced by transplant ([facility]), Chronic kidney disease-mineral and bone disorder, BK viremia,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 * BK VIRUS PCR QUANTITATIVE(Performed 07/25/2018) Performed for Recurrent UTI, Immunosuppression ([facility]), Long-term use of immunosuppressant medication, Kidney replaced by transplant ([facility]), Chronic kidney disease-mineral and bone disorder, BK viremia,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 * CREATININE URINE RANDOM(Performed 07/25/2018) Performed for Recurrent UTI, Immunosuppression ([facility]), Long-term use of immunosuppressant medication, Kidney replaced by transplant ([facility]), Chronic kidney disease-mineral and bone disorder, BK viremia,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 * PROTEIN URINE RANDOM QUANTITATIVE(Performed 07/25/2018) Performed for Recurrent UTI, Immunosuppression ([facility]), Long-term use of immunosuppressant medication, Kidney replaced by transplant ([facility]), Chronic kidney disease-mineral and bone disorder, BK viremia,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 * URINALYSIS W/MICROSCOPIC NO CULTURE(Performed 07/25/2018) Performed for Recurrent UTI, Immunosuppression ([facility]), Long-term use of immunosuppressant medication, Kidney replaced by transplant ([facility]), Chronic kidney disease-mineral and bone disorder, BK viremia,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 * PHOSPHORUS BLOOD(Performed 07/25/2018) Performed for Recurrent UTI, Immunosuppression ([facility]), Long-term use of immunosuppressant medication, Kidney replaced by transplant ([facility]), Chronic kidney disease-mineral and bone disorder, BK viremia,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 * MAGNESIUM BLOOD(Performed 07/25/2018) Performed for Recurrent UTI, Immunosuppression ([facility]), Long-term use of immunosuppressant medication, Kidney replaced by transplant ([facility]), Chronic kidney disease-mineral and bone disorder, BK viremia,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 * COMPREHENSIVE METABOLIC PANEL(Performed 07/25/2018) Performed for Recurrent UTI, Immunosuppression ([facility]), Long-term use of immunosuppressant medication, Kidney replaced by transplant ([facility]), Chronic kidney disease-mineral and bone disorder, BK viremia,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 * CBC W AUTO DIFFERENTIAL(Performed 07/25/2018) Performed for Recurrent UTI, Immunosuppression ([facility]), Long-term use of immunosuppressant medication, Kidney replaced by transplant ([facility]), Chronic kidney disease-mineral and bone disorder, BK viremia,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 * TACROLIMUS LEVEL(Performed 07/25/2018) Performed for Recurrent UTI, Immunosuppression ([facility]), Long-term use of immunosuppressant medication, Kidney replaced by transplant ([facility]), Chronic kidney disease-mineral and bone disorder, BK viremia,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 * CULTURE URINE(Performed 07/25/2018) Performed for Recurrent UTI, Immunosuppression ([facility]), Long-term use of immunosuppressant medication, Kidney replaced by transplant ([facility]), Chronic kidney disease-mineral and bone disorder, BK viremia,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 * VITAMIN D 25-HYDROXY(Performed 06/20/2018) * PTH INTACT(Performed 06/20/2018) * FERRITIN(Performed 06/20/2018) * TRANSFERRIN(Performed 06/20/2018) * URIC ACID BLOOD(Performed 06/20/2018) * IRON BLOOD(Performed 06/20/2018) * LIPID PROFILE(Performed 06/20/2018) * BK VIRUS PCR QUANTITATIVE(Performed 06/20/2018) Performed for Recurrent UTI, Immunosuppression ([facility]), Long-term use of immunosuppressant medication, Kidney replaced by transplant ([facility]), Chronic kidney disease-mineral and bone disorder, BK viremia,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 * CREATININE URINE RANDOM(Performed 06/20/2018) Performed for Recurrent UTI, Immunosuppression ([facility]), Long-term use of immunosuppressant medication, Kidney replaced by transplant ([facility]), Chronic kidney disease-mineral and bone disorder, BK viremia,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 * PROTEIN URINE RANDOM QUANTITATIVE(Performed 06/20/2018) Performed for Recurrent UTI, Immunosuppression ([facility]), Long-term use of immunosuppressant medication, Kidney replaced by transplant ([facility]), Chronic kidney disease-mineral and bone disorder, BK viremia,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 * URINALYSIS W/MICROSCOPIC NO CULTURE(Performed 06/20/2018) Performed for Recurrent UTI, Immunosuppression ([facility]), Long-term use of immunosuppressant medication, Kidney replaced by transplant ([facility]), Chronic kidney disease-mineral and bone disorder, BK viremia,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 * PHOSPHORUS BLOOD(Performed 06/20/2018) Performed for Recurrent UTI, Immunosuppression ([facility]), Long-term use of immunosuppressant medication, Kidney replaced by transplant ([facility]), Chronic kidney disease-mineral and bone disorder, BK viremia,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 * MAGNESIUM BLOOD(Performed 06/20/2018) Performed for Recurrent UTI, Immunosuppression ([facility]), Long-term use of immunosuppressant medication, 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), Chronic kidney disease-mineral and bone disorder, BK viremia,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 * COMPREHENSIVE METABOLIC PANEL(Performed 06/20/2018) Performed for Recurrent UTI, Immunosuppression (HCC), Long-term use of immunosuppressant medication, 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), Chronic kidney disease-mineral and bone disorder, BK viremia,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 * CBC W AUTO DIFFERENTIAL(Performed 06/20/2018) Performed for Recurrent UTI, Immunosuppression ([facility]), Long-term use of immunosuppressant medication, 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), Chronic kidney disease-mineral and bone disorder, BK viremia,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 * TACROLIMUS LEVEL(Performed 06/20/2018) Performed for Recurrent UTI, Immunosuppression ([facility]), Long-term use of immunosuppressant medication, 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), Chronic kidney disease-mineral and bone disorder, BK viremia,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 * CULTURE URINE(Performed 06/20/2018) Performed for Recurrent UTI, Immunosuppression ([facility]), Long-term use of immunosuppressant medication, 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), Chronic kidney disease-mineral and bone disorder, BK viremia,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 * VITAMIN D 25-HYDROXY(Performed 05/23/2018) * PTH INTACT(Performed 05/23/2018) * FERRITIN(Performed 05/23/2018) * TRANSFERRIN(Performed 05/23/2018) * URIC ACID BLOOD(Performed 05/23/2018) * IRON BLOOD(Performed 05/23/2018) * LIPID PROFILE(Performed 05/23/2018) * BK VIRUS PCR QUANTITATIVE(Performed 05/23/2018) Performed for Recurrent UTI, Immunosuppression ([facility]), Long-term use of immunosuppressant medication, 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), Chronic kidney disease-mineral and bone disorder, BK viremia,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 * CREATININE URINE RANDOM(Performed 05/23/2018) Performed for Recurrent UTI, Immunosuppression ([facility]), Long-term use of immunosuppressant medication, 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), Chronic kidney disease-mineral and bone disorder, BK viremia,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 * PROTEIN URINE RANDOM QUANTITATIVE(Performed 05/23/2018) Performed for Recurrent UTI, Immunosuppression ([facility]), Long-term use of immunosuppressant medication, Kidney replaced by transplant ([facility]), Chronic kidney disease-mineral and bone disorder, BK viremia,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 * URINALYSIS W/MICROSCOPIC NO CULTURE(Performed 05/23/2018) Performed for Recurrent UTI, Immunosuppression ([facility]), Long-term use of immunosuppressant medication, Kidney replaced by transplant ([facility]), Chronic kidney disease-mineral and bone disorder, BK viremia,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 * PHOSPHORUS BLOOD(Performed 05/23/2018) Performed for Recurrent UTI, Immunosuppression ([facility]), Long-term use of immunosuppressant medication, 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), Chronic kidney disease-mineral and bone disorder, BK viremia,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 * MAGNESIUM BLOOD(Performed 05/23/2018) Performed for Recurrent UTI, Immunosuppression ([facility]), Long-term use of immunosuppressant medication, Kidney replaced by transplant ([facility]), Chronic kidney disease-mineral and bone disorder, BK viremia,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 * COMPREHENSIVE METABOLIC PANEL(Performed 05/23/2018) Performed for Recurrent UTI, Immunosuppression ([facility]), Long-term use of immunosuppressant medication, Kidney replaced by transplant ([facility]), Chronic kidney disease-mineral and bone disorder, BK viremia,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 * CBC W AUTO DIFFERENTIAL(Performed 05/23/2018) Performed for Recurrent UTI, Immunosuppression ([facility]), Long-term use of immunosuppressant medication, Kidney replaced by transplant ([facility]), Chronic kidney disease-mineral and bone disorder, BK viremia,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 * TACROLIMUS LEVEL(Performed 05/23/2018) Performed for Recurrent UTI, Immunosuppression ([facility]), Long-term use of immunosuppressant medication, Kidney replaced by transplant ([facility]), Chronic kidney disease-mineral and bone disorder, BK viremia,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 * CULTURE URINE(Performed 05/23/2018) Performed for Recurrent UTI, Immunosuppression ([facility]), Long-term use of immunosuppressant medication, Kidney replaced by transplant ([facility]), Chronic kidney disease-mineral and bone disorder, BK viremia,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 * XR KNEE LEFT 2VW OR LESS(Performed 05/21/2018) Performed for Acute pain of left knee * PTH INTACT(Performed 04/27/2018) Performed for Recurrent UTI, Immunosuppression ([facility]), Long-term use of immunosuppressant medication, Kidney replaced by transplant ([facility]), Chronic kidney disease-mineral and bone disorder, BK viremia,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 * URIC ACID BLOOD(Performed 04/27/2018) Performed for Recurrent UTI, Immunosuppression ([facility]CC), Long-term use of immunosuppressant medication, 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), Chronic kidney disease-mineral and bone disorder, BK viremia,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 * IRON BLOOD(Performed 04/27/2018) Performed for Recurrent UTI, Immunosuppression (HCC), Long-term use of immunosuppressant medication, 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), Chronic kidney disease-mineral and bone disorder, BK viremia,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 * FERRITIN(Performed 04/27/2018) Performed for Recurrent UTI, Immunosuppression (HCC), Long-term use of immunosuppressant medication, 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), Chronic kidney disease-mineral and bone disorder, BK viremia,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 * TRANSFERRIN(Performed 04/27/2018) Performed for Recurrent UTI, Immunosuppression (HCC), Long-term use of immunosuppressant medication, 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), Chronic kidney disease-mineral and bone disorder, BK viremia,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 * VITAMIN D 25-HYDROXY(Performed 04/27/2018) Performed for Recurrent UTI, Immunosuppression (HCC), Long-term use of immunosuppressant medication, 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), Chronic kidney disease-mineral and bone disorder, BK viremia,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 * LIPID PROFILE(Performed 04/27/2018) Performed for Recurrent UTI, Immunosuppression (HCC), Long-term use of immunosuppressant medication, 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), Chronic kidney disease-mineral and bone disorder, BK viremia,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 * BK VIRUS PCR QUANTITATIVE(Performed 04/27/2018) Performed for Recurrent UTI, Immunosuppression (HCC), Long-term use of immunosuppressant medication, 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), Chronic kidney disease-mineral and bone disorder, BK viremia,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 * CREATININE URINE RANDOM(Performed 04/27/2018) Performed for Recurrent UTI, Immunosuppression (HCC), Long-term use of immunosuppressant medication, 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), Chronic kidney disease-mineral and bone disorder, BK viremia,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 * PROTEIN URINE RANDOM QUANTITATIVE(Performed 04/27/2018) Performed for Recurrent UTI, Immunosuppression (HCC), Long-term use of immunosuppressant medication, 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), Chronic kidney disease-mineral and bone disorder, BK viremia,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 * URINALYSIS W/MICROSCOPIC NO CULTURE(Performed 04/27/2018) Performed for Recurrent UTI, Immunosuppression ([facility]), Long-term use of immunosuppressant medication, 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), Chronic kidney disease-mineral and bone disorder, BK viremia,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 * PHOSPHORUS BLOOD(Performed 04/27/2018) Performed for Recurrent UTI, Immunosuppression ([facility]), Long-term use of immunosuppressant medication, 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), Chronic kidney disease-mineral and bone disorder, BK viremia,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 * MAGNESIUM BLOOD(Performed 04/27/2018) Performed for Recurrent UTI, Immunosuppression ([facility]), Long-term use of immunosuppressant medication, Kidney replaced by transplant ([facility]), Chronic kidney disease-mineral and bone disorder, BK viremia,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 * COMPREHENSIVE METABOLIC PANEL(Performed 04/27/2018) Performed for Recurrent UTI, Immunosuppression ([facility]), Long-term use of immunosuppressant medication, Kidney replaced by transplant ([facility]), Chronic kidney disease-mineral and bone disorder, BK viremia,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 * CBC W AUTO DIFFERENTIAL(Performed 04/27/2018) Performed for Recurrent UTI, Immunosuppression ([facility]), Long-term use of immunosuppressant medication, Kidney replaced by transplant ([facility]), Chronic kidney disease-mineral and bone disorder, BK viremia,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 * TACROLIMUS LEVEL(Performed 04/27/2018) Performed for Recurrent UTI, Immunosuppression ([facility]), Long-term use of immunosuppressant medication, Kidney replaced by transplant ([facility]), Chronic kidney disease-mineral and bone disorder, BK viremia,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 * CULTURE URINE(Performed 04/27/2018) Performed for Recurrent UTI, Immunosuppression ([facility]), Long-term use of immunosuppressant medication, Kidney replaced by transplant ([facility]), Chronic kidney disease-mineral and bone disorder, BK viremia,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 * VITAMIN D 25-HYDROXY(Performed 03/21/2018) * PTH INTACT(Performed 03/21/2018) * FERRITIN(Performed 03/21/2018) * TRANSFERRIN(Performed 03/21/2018) * URIC ACID BLOOD(Performed 03/21/2018) * IRON BLOOD(Performed 03/21/2018) * LIPID PROFILE(Performed 03/21/2018) * BK VIRUS PCR QUANTITATIVE(Performed 03/21/2018) Performed for Recurrent UTI, Immunosuppression ([facility]), Long-term use of immunosuppressant medication, Kidney replaced by transplant ([facility]), Chronic kidney disease-mineral and bone disorder, BK viremia,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 * CREATININE URINE RANDOM(Performed 03/21/2018) Performed for Recurrent UTI, Immunosuppression ([facility]), Long-term use of immunosuppressant medication, Kidney replaced by transplant ([facility]), Chronic kidney disease-mineral and bone disorder, BK viremia,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 * PROTEIN URINE RANDOM QUANTITATIVE(Performed 03/21/2018) Performed for Recurrent UTI, Immunosuppression ([facility]), Long-term use of immunosuppressant medication, Kidney replaced by transplant ([facility]), Chronic kidney disease-mineral and bone disorder, BK viremia,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 * URINALYSIS W/MICROSCOPIC NO CULTURE(Performed 03/21/2018) Performed for Recurrent UTI, Immunosuppression ([facility]), Long-term use of immunosuppressant medication, Kidney replaced by transplant ([facility]), Chronic kidney disease-mineral and bone disorder, BK viremia,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 * PHOSPHORUS BLOOD(Performed 03/21/2018) Performed for Recurrent UTI, Immunosuppression ([facility]), Long-term use of immunosuppressant medication, Kidney replaced by transplant ([facility]), Chronic kidney disease-mineral and bone disorder, BK viremia,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 * MAGNESIUM BLOOD(Performed 03/21/2018) Performed for Recurrent UTI, Immunosuppression ([facility]), Long-term use of immunosuppressant medication, Kidney replaced by transplant ([facility]), Chronic kidney disease-mineral and bone disorder, BK viremia,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 * COMPREHENSIVE METABOLIC PANEL(Performed 03/21/2018) Performed for Recurrent UTI, Immunosuppression ([facility]), Long-term use of immunosuppressant medication, Kidney replaced by transplant ([facility]), Chronic kidney disease-mineral and bone disorder, BK viremia,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 * CBC W AUTO DIFFERENTIAL(Performed 03/21/2018) Performed for Recurrent UTI, Immunosuppression ([facility]), Long-term use of immunosuppressant medication, Kidney replaced by transplant ([facility]), Chronic kidney disease-mineral and bone disorder, BK viremia,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 * TACROLIMUS LEVEL(Performed 03/21/2018) Performed for Recurrent UTI, Immunosuppression ([facility]), Long-term use of immunosuppressant medication, 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), Chronic kidney disease-mineral and bone disorder, BK viremia,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 * CULTURE URINE(Performed 03/21/2018) Performed for Recurrent UTI, Immunosuppression ([facility]), Long-term use of immunosuppressant medication, 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), Chronic kidney disease-mineral and bone disorder, BK viremia,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 * CREATININE URINE RANDOM(Performed 02/21/2018) Performed for Recurrent UTI, Immunosuppression ([facility]), Long-term use of immunosuppressant medication, 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), Chronic kidney disease-mineral and bone disorder, BK viremia,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 * PROTEIN URINE RANDOM QUANTITATIVE(Performed 02/21/2018) Performed for Recurrent UTI, Immunosuppression ([facility]), Long-term use of immunosuppressant medication, Kidney replaced by transplant ([facility]), Chronic kidney disease-mineral and bone disorder, BK viremia,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 * PTH INTACT(Performed 02/21/2018) Performed for Recurrent UTI, Immunosuppression ([facility]), Long-term use of immunosuppressant medication, Kidney replaced by transplant ([facility]), Chronic kidney disease-mineral and bone disorder, BK viremia,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 * URIC ACID BLOOD(Performed 02/21/2018) Performed for Recurrent UTI, Immunosuppression ([facility]), Long-term use of immunosuppressant medication, Kidney replaced by transplant ([facility]), Chronic kidney disease-mineral and bone disorder, BK viremia,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 * IRON BLOOD(Performed 02/21/2018) Performed for Recurrent UTI, Immunosuppression ([facility]), Long-term use of immunosuppressant medication, Kidney replaced by transplant ([facility]), Chronic kidney disease-mineral and bone disorder, BK viremia,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 * FERRITIN(Performed 02/21/2018) Performed for Recurrent UTI, Immunosuppression ([facility]), Long-term use of immunosuppressant medication, Kidney replaced by transplant ([facility]), Chronic kidney disease-mineral and bone disorder, BK viremia,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 * TRANSFERRIN(Performed 02/21/2018) Performed for Recurrent UTI, Immunosuppression ([facility]), Long-term use of immunosuppressant medication, Kidney replaced by transplant ([facility]), Chronic kidney disease-mineral and bone disorder, BK viremia,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 * VITAMIN D 25-HYDROXY(Performed 02/21/2018) Performed for Recurrent UTI, Immunosuppression ([facility]), Long-term use of immunosuppressant medication, 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), Chronic kidney disease-mineral and bone disorder, BK viremia,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 * LIPID PROFILE(Performed 02/21/2018) Performed for Recurrent UTI, Immunosuppression ([facility]), Long-term use of immunosuppressant medication, 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), Chronic kidney disease-mineral and bone disorder, BK viremia,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 * BK VIRUS PCR QUANTITATIVE(Performed 02/21/2018) Performed for Recurrent UTI, Immunosuppression ([facility]), Long-term use of immunosuppressant medication, 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), Chronic kidney disease-mineral and bone disorder, BK viremia,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 * URINALYSIS W/MICROSCOPIC NO CULTURE(Performed 02/21/2018) Performed for Recurrent UTI, Immunosuppression ([facility]), Long-term use of immunosuppressant medication, 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), Chronic kidney disease-mineral and bone disorder, BK viremia,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 * PHOSPHORUS BLOOD(Performed 02/21/2018) Performed for Recurrent UTI, Immunosuppression ([facility]), Long-term use of immunosuppressant medication, Kidney replaced by transplant ([facility]), Chronic kidney disease-mineral and bone disorder, BK viremia,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 * MAGNESIUM BLOOD(Performed 02/21/2018) Performed for Recurrent UTI, Immunosuppression ([facility]), Long-term use of immunosuppressant medication, Kidney replaced by transplant ([facility]), Chronic kidney disease-mineral and bone disorder, BK viremia,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 * COMPREHENSIVE METABOLIC PANEL(Performed 02/21/2018) Performed for Recurrent UTI, Immunosuppression ([facility]), Long-term use of immunosuppressant medication, 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), Chronic kidney disease-mineral and bone disorder, BK viremia,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 * CBC W AUTO DIFFERENTIAL(Performed 02/21/2018) Performed for Recurrent UTI, Immunosuppression ([facility]), Long-term use of immunosuppressant medication, Kidney replaced by transplant ([facility]), Chronic kidney disease-mineral and bone disorder, BK viremia,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 * TACROLIMUS LEVEL(Performed 02/21/2018) Performed for Recurrent UTI, Immunosuppression ([facility]), Long-term use of immunosuppressant medication, 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), Chronic kidney disease-mineral and bone disorder, BK viremia,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 * CULTURE URINE(Performed 02/21/2018) Performed for Recurrent UTI, Immunosuppression ([facility]), Long-term use of immunosuppressant medication, Kidney replaced by transplant ([facility]), Chronic kidney disease-mineral and bone disorder, BK viremia,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 * VITAMIN D 25-HYDROXY(Performed 01/17/2018) * PTH INTACT(Performed 01/17/2018) * FERRITIN(Performed 01/17/2018) * TRANSFERRIN(Performed 01/17/2018) * URIC ACID BLOOD(Performed 01/17/2018) * IRON BLOOD(Performed 01/17/2018) * LIPID PROFILE(Performed 01/17/2018) * BK VIRUS PCR QUANTITATIVE(Performed 01/17/2018) Performed for Recurrent UTI, Immunosuppression ([facility]), Long-term use of immunosuppressant medication, Kidney replaced by transplant ([facility]), Chronic kidney disease-mineral and bone disorder, BK viremia * CREATININE URINE RANDOM(Performed 01/17/2018) Performed for Recurrent UTI, Immunosuppression ([facility]), Long-term use of immunosuppressant medication, Kidney replaced by transplant ([facility]), Chronic kidney disease-mineral and bone disorder, BK viremia * PROTEIN URINE RANDOM QUANTITATIVE(Performed 01/17/2018) Performed for Recurrent UTI, Immunosuppression ([facility]), Long-term use of immunosuppressant medication, Kidney replaced by transplant ([facility]), Chronic kidney disease-mineral and bone disorder, BK viremia * URINALYSIS W/MICROSCOPIC NO CULTURE(Performed 01/17/2018) Performed for Recurrent UTI, Immunosuppression ([facility]), Long-term use of immunosuppressant medication, Kidney replaced by transplant ([facility]), Chronic kidney disease-mineral and bone disorder, BK viremia * PHOSPHORUS BLOOD(Performed 01/17/2018) Performed for Recurrent UTI, Immunosuppression ([facility]), Long-term use of immunosuppressant medication, Kidney replaced by transplant ([facility]), Chronic kidney disease-mineral and bone disorder, BK viremia * MAGNESIUM BLOOD(Performed 01/17/2018) Performed for Recurrent UTI, Immunosuppression ([facility]), Long-term use of immunosuppressant medication, Kidney replaced by transplant ([facility]), Chronic kidney disease-mineral and bone disorder, BK viremia * COMPREHENSIVE METABOLIC PANEL(Performed 01/17/2018) Performed for Recurrent UTI, Immunosuppression ([facility]), Long-term use of immunosuppressant medication, Kidney replaced by transplant ([facility]), Chronic kidney disease-mineral and bone disorder, BK viremia * CBC W AUTO DIFFERENTIAL(Performed 01/17/2018) Performed for Recurrent UTI, Immunosuppression ([facility]), Long-term use of immunosuppressant medication, Kidney replaced by transplant ([facility]), Chronic kidney disease-mineral and bone disorder, BK viremia * TACROLIMUS LEVEL(Performed 01/17/2018) Performed for Recurrent UTI, Immunosuppression ([facility]), Long-term use of immunosuppressant medication, Kidney replaced by transplant ([facility]), Chronic kidney disease-mineral and bone disorder, BK viremia * CULTURE URINE(Performed 01/17/2018) Performed for Recurrent UTI, Immunosuppression ([facility]), Long-term use of immunosuppressant medication, Kidney replaced by transplant ([facility]), Chronic kidney disease-mineral and bone disorder, BK viremia * VITAMIN D 25-HYDROXY(Performed 12/20/2017) * PTH INTACT(Performed 12/20/2017) * FERRITIN(Performed 12/20/2017) * TRANSFERRIN(Performed 12/20/2017) * URIC ACID BLOOD(Performed 12/20/2017) * IRON BLOOD(Performed 12/20/2017) * LIPID PROFILE(Performed 12/20/2017) * BK VIRUS PCR QUANTITATIVE(Performed 12/20/2017) Performed for Recurrent UTI, Immunosuppression ([facility]), Long-term use of immunosuppressant medication, Kidney replaced by transplant ([facility]), Chronic kidney disease-mineral and bone disorder, BK viremia * CREATININE URINE RANDOM(Performed 12/20/2017) Performed for Recurrent UTI, Immunosuppression ([facility]), Long-term use of immunosuppressant medication, Kidney replaced by transplant ([facility]), Chronic kidney disease-mineral and bone disorder, BK viremia * PROTEIN URINE RANDOM QUANTITATIVE(Performed 12/20/2017) Performed for Recurrent UTI, Immunosuppression ([facility]), Long-term use of immunosuppressant medication, Kidney replaced by transplant ([facility]), Chronic kidney disease-mineral and bone disorder, BK viremia * URINALYSIS W/MICROSCOPIC NO CULTURE(Performed 12/20/2017) Performed for Recurrent UTI, Immunosuppression ([facility]), Long-term use of immunosuppressant medication, Kidney replaced by transplant ([facility]), Chronic kidney disease-mineral and bone disorder, BK viremia * PHOSPHORUS BLOOD(Performed 12/20/2017) Performed for Recurrent UTI, Immunosuppression ([facility]), Long-term use of immunosuppressant medication, Kidney replaced by transplant ([facility]), Chronic kidney disease-mineral and bone disorder, BK viremia * MAGNESIUM BLOOD(Performed 12/20/2017) Performed for Recurrent UTI, Immunosuppression ([facility]), Long-term use of immunosuppressant medication, 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), Chronic kidney disease-mineral and bone disorder, BK viremia * COMPREHENSIVE METABOLIC PANEL(Performed 12/20/2017) Performed for Recurrent UTI, Immunosuppression (HCC), Long-term use of immunosuppressant medication, 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), Chronic kidney disease-mineral and bone disorder, BK viremia * CBC W AUTO DIFFERENTIAL(Performed 12/20/2017) Performed for Recurrent UTI, Immunosuppression ([facility]CC), Long-term use of immunosuppressant medication, 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), Chronic kidney disease-mineral and bone disorder, BK viremia * TACROLIMUS LEVEL(Performed 12/20/2017) Performed for Recurrent UTI, Immunosuppression ([facility]CC), Long-term use of immunosuppressant medication, 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), Chronic kidney disease-mineral and bone disorder, BK viremia * CULTURE URINE(Performed 12/20/2017) Performed for Recurrent UTI, Immunosuppression ([facility]), Long-term use of immunosuppressant medication, 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), Chronic kidney disease-mineral and bone disorder, BK viremia * LIPID PROFILE(Performed 11/15/2017) * IRON BLOOD(Performed 11/15/2017) * MAGNESIUM BLOOD(Performed 11/15/2017) * PHOSPHORUS BLOOD(Performed 11/15/2017) * URIC ACID BLOOD(Performed 11/15/2017) * COMPREHENSIVE METABOLIC PANEL(Performed 11/15/2017) * TRANSFERRIN(Performed 11/15/2017) * CBC W AUTO DIFFERENTIAL(Performed 11/15/2017) * URINALYSIS W/MICROSCOPIC NO CULTURE(Performed 11/15/2017) * FERRITIN(Performed 11/15/2017) * PTH INTACT(Performed 11/15/2017) * VITAMIN D 25-HYDROXY(Performed 11/15/2017) * PROTEIN CREATININE RATIO URINE RANDOM PNL(Performed 11/15/2017) * TACROLIMUS LEVEL(Performed 11/15/2017) * BK VIRUS PCR QUANTITATIVE(Performed 11/15/2017) * CULTURE URINE(Performed 11/15/2017) * BK VIRUS PCR QUANTITATIVE(Performed 10/18/2017) * TACROLIMUS LEVEL(Performed 10/18/2017) * PROTEIN URINE RANDOM QUANTITATIVE(Performed 10/18/2017) * VITAMIN D 25-HYDROXY(Performed 10/18/2017) * PTH INTACT(Performed 10/18/2017) * FERRITIN(Performed 10/18/2017) * TRANSFERRIN(Performed 10/18/2017) * CBC W AUTO DIFFERENTIAL(Performed 10/18/2017) * URINALYSIS W/MICROSCOPIC NO CULTURE(Performed 10/18/2017) * RENAL FUNCTION PANEL(Performed 10/18/2017) * COMPREHENSIVE METABOLIC PANEL(Performed 10/18/2017) * CREATININE URINE RANDOM(Performed 10/18/2017) * URIC ACID BLOOD(Performed 10/18/2017) * MAGNESIUM BLOOD(Performed 10/18/2017) * IRON BLOOD(Performed 10/18/2017) * LIPID PROFILE(Performed 10/18/2017) * CULTURE URINE(Performed 10/18/2017) * FERRITIN(Performed 09/20/2017) * TRANSFERRIN(Performed 09/20/2017) * URIC ACID BLOOD(Performed 09/20/2017) * VITAMIN D 25-HYDROXY(Performed 09/20/2017) * PTH INTACT(Performed 09/20/2017) * IRON BLOOD(Performed 09/20/2017) * LIPID PROFILE(Performed 09/20/2017) * BK VIRUS PCR QUANTITATIVE(Performed 09/20/2017) Performed for Recurrent UTI, Immunosuppression ([facility]), Long-term use of immunosuppressant medication, Kidney replaced by transplant ([facility]), Chronic kidney disease-mineral and bone disorder, BK viremia * CREATININE URINE RANDOM(Performed 09/20/2017) Performed for Recurrent UTI, Immunosuppression ([facility]), Long-term use of immunosuppressant medication, Kidney replaced by transplant ([facility]), Chronic kidney disease-mineral and bone disorder, BK viremia * PROTEIN URINE RANDOM QUANTITATIVE(Performed 09/20/2017) Performed for Recurrent UTI, Immunosuppression ([facility]), Long-term use of immunosuppressant medication, Kidney replaced by transplant ([facility]), Chronic kidney disease-mineral and bone disorder, BK viremia * URINALYSIS W/MICROSCOPIC NO CULTURE(Performed 09/20/2017) Performed for Recurrent UTI, Immunosuppression ([facility]), Long-term use of immunosuppressant medication, Kidney replaced by transplant ([facility]), Chronic kidney disease-mineral and bone disorder, BK viremia * PHOSPHORUS BLOOD(Performed 09/20/2017) Performed for Recurrent UTI, Immunosuppression ([facility]), Long-term use of immunosuppressant medication, Kidney replaced by transplant ([facility]), Chronic kidney disease-mineral and bone disorder, BK viremia * MAGNESIUM BLOOD(Performed 09/20/2017) Performed for Recurrent UTI, Immunosuppression ([facility]), Long-term use of immunosuppressant medication, 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), Chronic kidney disease-mineral and bone disorder, BK viremia * COMPREHENSIVE METABOLIC PANEL(Performed 09/20/2017) Performed for Recurrent UTI, Immunosuppression ([facility]), Long-term use of immunosuppressant medication, 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), Chronic kidney disease-mineral and bone disorder, BK viremia * CBC W AUTO DIFFERENTIAL(Performed 09/20/2017) Performed for Recurrent UTI, Immunosuppression ([facility]), Long-term use of immunosuppressant medication, Kidney replaced by transplant ([facility]), Chronic kidney disease-mineral and bone disorder, BK viremia * TACROLIMUS LEVEL(Performed 09/20/2017) Performed for Recurrent UTI, Immunosuppression ([facility]), Long-term use of immunosuppressant medication, Kidney replaced by transplant ([facility]), Chronic kidney disease-mineral and bone disorder, BK viremia * CULTURE URINE(Performed 09/20/2017) Performed for Recurrent UTI, Immunosuppression ([facility]), Long-term use of immunosuppressant medication, Kidney replaced by transplant ([facility]), Chronic kidney disease-mineral and bone disorder, BK viremia * URINALYSIS REFLEX TO MICROSCOPIC NO CULTURE(Performed 08/16/2017) * BK VIRUS PCR QUANTITATIVE(Performed 08/16/2017) * TACROLIMUS LEVEL(Performed 08/16/2017) * PROTEIN CREATININE RATIO URINE RANDOM PNL(Performed 08/16/2017) * CBC W AUTO DIFFERENTIAL(Performed 08/16/2017) * COMPREHENSIVE METABOLIC PANEL(Performed 08/16/2017) * URIC ACID BLOOD(Performed 08/16/2017) * PHOSPHORUS BLOOD(Performed 08/16/2017) * MAGNESIUM BLOOD(Performed 08/16/2017) * LIPID PROFILE(Performed 08/16/2017) * CULTURE URINE(Performed 08/16/2017) * BK VIRUS PCR QUANTITATIVE(Performed 07/19/2017) * TACROLIMUS LEVEL(Performed 07/19/2017) * PTH INTACT W/O CALCIUM(Performed 07/19/2017) * PROTEIN CREATININE RATIO URINE RANDOM PNL(Performed 07/19/2017) * COMPREHENSIVE METABOLIC PANEL(Performed 07/19/2017) * URIC ACID BLOOD(Performed 07/19/2017) * PHOSPHORUS BLOOD(Performed 07/19/2017) * MAGNESIUM BLOOD(Performed 07/19/2017) * LIPID PROFILE(Performed 07/19/2017) * CBC W AUTO DIFFERENTIAL(Performed 07/19/2017) * URINE MICROSCOPIC ONLY(Performed 07/19/2017) * CULTURE URINE(Performed 07/19/2017) * BK VIRUS PCR QUANTITATIVE(Performed 06/16/2017) * TACROLIMUS LEVEL(Performed 06/16/2017) * URINE MICROSCOPIC ONLY(Performed 06/16/2017) * PROTEIN CREATININE RATIO URINE RANDOM PNL(Performed 06/16/2017) * PTH INTACT W/O CALCIUM(Performed 06/16/2017) * COMPREHENSIVE METABOLIC PANEL(Performed 06/16/2017) * URIC ACID BLOOD(Performed 06/16/2017) * PHOSPHORUS BLOOD(Performed 06/16/2017) * MAGNESIUM BLOOD(Performed 06/16/2017) * LIPID PROFILE(Performed 06/16/2017) * CBC W AUTO DIFFERENTIAL(Performed 06/16/2017) * CULTURE URINE(Performed 06/16/2017) * CULTURE URINE(Performed 06/16/2017) * CULTURE URINE(Performed 06/16/2017) * BK VIRUS PCR QUANTITATIVE(Performed 05/24/2017) * PTH INTACT W/O CALCIUM(Performed 05/24/2017) * TACROLIMUS LEVEL(Performed 05/24/2017) * PROTEIN CREATININE RATIO URINE RANDOM PNL(Performed 05/24/2017) * COMPREHENSIVE METABOLIC PANEL(Performed 05/24/2017) * URIC ACID BLOOD(Performed 05/24/2017) * PHOSPHORUS BLOOD(Performed 05/24/2017) * MAGNESIUM BLOOD(Performed 05/24/2017) * LIPID PROFILE(Performed 05/24/2017) * CBC W AUTO DIFFERENTIAL(Performed 05/24/2017) * URINE MICROSCOPIC ONLY(Performed 05/24/2017) * CULTURE URINE(Performed 05/24/2017) * CULTURE URINE(Performed 05/24/2017) * CULTURE URINE(Performed 05/24/2017) * BK VIRUS PCR QUANTITATIVE(Performed 04/26/2017) * TACROLIMUS LEVEL(Performed 04/26/2017) * PTH INTACT W/O CALCIUM(Performed 04/26/2017) * PROTEIN CREATININE RATIO URINE RANDOM PNL(Performed 04/26/2017) * URINE MICROSCOPIC ONLY(Performed 04/26/2017) * CBC W AUTO DIFFERENTIAL(Performed 04/26/2017) * COMPREHENSIVE METABOLIC PANEL(Performed 04/26/2017) * URIC ACID BLOOD(Performed 04/26/2017) * PHOSPHORUS BLOOD(Performed 04/26/2017) * MAGNESIUM BLOOD(Performed 04/26/2017) * LIPID PROFILE(Performed 04/26/2017) * CULTURE URINE(Performed 04/26/2017) * CULTURE URINE(Performed 04/26/2017) * CULTURE URINE(Performed 04/26/2017) * CULTURE URINE(Performed 04/26/2017) * CULTURE URINE(Performed 04/26/2017) * BK VIRUS PCR QUANTITATIVE(Performed 03/22/2017) * TACROLIMUS LEVEL(Performed 03/22/2017) * PTH INTACT W/O CALCIUM(Performed 03/22/2017) * PROTEIN CREATININE RATIO URINE RANDOM PNL(Performed 03/22/2017) * COMPREHENSIVE METABOLIC PANEL(Performed 03/22/2017) * URIC ACID BLOOD(Performed 03/22/2017) * PHOSPHORUS BLOOD(Performed 03/22/2017) * MAGNESIUM BLOOD(Performed 03/22/2017) * LIPID PROFILE(Performed 03/22/2017) * CBC W AUTO DIFFERENTIAL(Performed 03/22/2017) * URINE MICROSCOPIC ONLY(Performed 03/22/2017) * CULTURE URINE(Performed 03/22/2017) * CULTURE URINE(Performed 03/22/2017) * CULTURE URINE(Performed 03/22/2017) * CULTURE URINE(Performed 03/22/2017) * HEMOGLOBIN A1C(Performed 02/15/2017) * BK VIRUS PCR QUANTITATIVE(Performed 02/15/2017) * TACROLIMUS LEVEL(Performed 02/15/2017) * PTH INTACT W/O CALCIUM(Performed 02/15/2017) * PROTEIN CREATININE RATIO URINE RANDOM PNL(Performed 02/15/2017) * CBC W AUTO DIFFERENTIAL(Performed 02/15/2017) * URINE MICROSCOPIC ONLY(Performed 02/15/2017) * COMPREHENSIVE METABOLIC PANEL(Performed 02/15/2017) * URIC ACID BLOOD(Performed 02/15/2017) * PHOSPHORUS BLOOD(Performed 02/15/2017) * MAGNESIUM BLOOD(Performed 02/15/2017) * LIPID PROFILE(Performed 02/15/2017) * CULTURE URINE(Performed 02/15/2017) * PTH INTACT+CALCIUM(Performed 01/18/2017) * BK VIRUS PCR QUANTITATIVE(Performed 01/18/2017) * TACROLIMUS LEVEL(Performed 01/18/2017) * PROTEIN CREATININE RATIO URINE RANDOM PNL(Performed 01/18/2017) * CBC W AUTO DIFFERENTIAL(Performed 01/18/2017) * COMPREHENSIVE METABOLIC PANEL(Performed 01/18/2017) * URIC ACID BLOOD(Performed 01/18/2017) * PHOSPHORUS BLOOD(Performed 01/18/2017) * MAGNESIUM BLOOD(Performed 01/18/2017) * LIPID PROFILE(Performed 01/18/2017) * URINALYSIS REFLEX TO MICROSCOPIC NO CULTURE(Performed 01/18/2017) * CULTURE URINE(Performed 01/18/2017) * PTH INTACT W/O CALCIUM(Performed 12/21/2016) * BK VIRUS PCR QUANTITATIVE(Performed 12/21/2016) * TACROLIMUS LEVEL(Performed 12/21/2016) * PROTEIN CREATININE RATIO URINE RANDOM PNL(Performed 12/21/2016) * CBC W AUTO DIFFERENTIAL(Performed 12/21/2016) * COMPREHENSIVE METABOLIC PANEL(Performed 12/21/2016) * URIC ACID BLOOD(Performed 12/21/2016) * PHOSPHORUS BLOOD(Performed 12/21/2016) * MAGNESIUM BLOOD(Performed 12/21/2016) * LIPID PROFILE(Performed 12/21/2016) * URINALYSIS REFLEX TO MICROSCOPIC NO CULTURE(Performed 12/21/2016) * CULTURE URINE(Performed 12/21/2016) * TACROLIMUS LEVEL(Performed 11/09/2016) * MICROALB/CREAT RATIO URINE RANDOM PANEL(Performed 11/09/2016) * COMPREHENSIVE METABOLIC PANEL(Performed 11/09/2016) * URIC ACID BLOOD(Performed 11/09/2016) * PHOSPHORUS BLOOD(Performed 11/09/2016) * MAGNESIUM BLOOD(Performed 11/09/2016) * LIPID PROFILE(Performed 11/09/2016) * URINALYSIS W/MICROSCOPIC NO CULTURE(Performed 11/09/2016) * CBC W AUTO DIFFERENTIAL(Performed 11/09/2016) * BK VIRUS PCR QUANTITATIVE URINE(Performed 11/09/2016) * CULTURE URINE(Performed 11/09/2016) * TACROLIMUS LEVEL(Performed 10/19/2016) * CBC W AUTO DIFFERENTIAL(Performed 10/19/2016) * COMPREHENSIVE METABOLIC PANEL(Performed 10/19/2016) * URIC ACID BLOOD(Performed 10/19/2016) * PHOSPHORUS BLOOD(Performed 10/19/2016) * LIPID PROFILE(Performed 10/19/2016) * URINALYSIS W/MICROSCOPIC NO CULTURE(Performed 10/19/2016) * MICROALB/CREAT RATIO URINE RANDOM PANEL(Performed 10/19/2016) * VITAMIN D 25-HYDROXY(Performed 10/19/2016) * PTH INTACT W/O CALCIUM(Performed 10/19/2016) * BK VIRUS PCR QUANTITATIVE URINE(Performed 10/19/2016) * CULTURE URINE(Performed 10/19/2016) * LIPID PROFILE(Performed 09/14/2016) * TACROLIMUS LEVEL(Performed 09/14/2016) * PTH INTACT W/O CALCIUM(Performed 09/14/2016) * MICROALB/CREAT RATIO URINE RANDOM PANEL(Performed 09/14/2016) * URINALYSIS W/MICROSCOPIC NO CULTURE(Performed 09/14/2016) * CBC W AUTO DIFFERENTIAL(Performed 09/14/2016) * COMPREHENSIVE METABOLIC PANEL(Performed 09/14/2016) * URIC ACID BLOOD(Performed 09/14/2016) * PHOSPHORUS BLOOD(Performed 09/14/2016) * MAGNESIUM BLOOD(Performed 09/14/2016) * CULTURE URINE(Performed 09/14/2016) * BK VIRUS PCR QUANTITATIVE URINE(Performed 09/14/2016) * CULTURE URINE(Performed 09/14/2016) * CULTURE URINE(Performed 09/14/2016) * CULTURE URINE(Performed 09/14/2016) * CULTURE URINE(Performed 09/14/2016) * LIPID PROFILE(Performed 08/24/2016) * PTH INTACT W/O CALCIUM(Performed 08/24/2016) * TACROLIMUS LEVEL(Performed 08/24/2016) * CBC W AUTO DIFFERENTIAL(Performed 08/24/2016) * URINALYSIS W/MICROSCOPIC NO CULTURE(Performed 08/24/2016) * COMPREHENSIVE METABOLIC PANEL(Performed 08/24/2016) * URIC ACID BLOOD(Performed 08/24/2016) * PHOSPHORUS BLOOD(Performed 08/24/2016) * MAGNESIUM BLOOD(Performed 08/24/2016) * MICROALB/CREAT RATIO URINE RANDOM PANEL(Performed 08/24/2016) * TACROLIMUS LEVEL(Performed 08/24/2016) * MICROALB/CREAT RATIO URINE RANDOM PANEL(Performed 08/24/2016) * URINALYSIS W/MICROSCOPIC NO CULTURE(Performed 08/24/2016) * COMPREHENSIVE METABOLIC PANEL(Performed 08/24/2016) * URIC ACID BLOOD(Performed 08/24/2016) * PHOSPHORUS BLOOD(Performed 08/24/2016) * MAGNESIUM BLOOD(Performed 08/24/2016) * CBC W AUTO DIFFERENTIAL(Performed 08/24/2016) * CULTURE URINE(Performed 08/24/2016) * BK VIRUS PCR QUANTITATIVE URINE(Performed 08/24/2016) * CULTURE URINE(Performed 08/24/2016) * CULTURE URINE(Performed 08/24/2016) * CULTURE URINE(Performed 08/24/2016) * CULTURE URINE(Performed 08/24/2016) * CULTURE URINE(Performed 08/24/2016) * BASIC METABOLIC PANEL (CALCIUM TOTAL)(Performed 07/25/2016) * TACROLIMUS LEVEL(Performed 07/25/2016) * RENAL FUNCTION PANEL(Performed 07/25/2016) * MAGNESIUM BLOOD(Performed 07/25/2016) * CBC W/O DIFFERENTIAL(Performed 07/25/2016) * URINALYSIS W/MICROSCOPIC NO CULTURE(Performed 07/24/2016) * CREATININE URINE RANDOM(Performed 07/24/2016) * SODIUM URINE RANDOM(Performed 07/24/2016) * UREA NITROGEN URINE RANDOM(Performed 07/24/2016) * CULTURE URINE(Performed 07/24/2016) * DIFFERENTIAL MANUAL(Performed 07/24/2016) * COMPREHENSIVE METABOLIC PANEL(Performed 07/24/2016) * PHOSPHORUS BLOOD(Performed 07/24/2016) * MAGNESIUM BLOOD(Performed 07/24/2016) * CBC W AUTO DIFFERENTIAL(Performed 07/24/2016) * CBC W AUTO DIFFERENTIAL(Performed 07/24/2016) * TACROLIMUS LEVEL(Performed 07/20/2016) * MICROALB/CREAT RATIO URINE RANDOM PANEL(Performed 07/20/2016) * PTH INTACT W/O CALCIUM(Performed 07/20/2016) * LIPID PROFILE(Performed 07/20/2016) * CBC W AUTO DIFFERENTIAL(Performed 07/20/2016) * COMPREHENSIVE METABOLIC PANEL(Performed 07/20/2016) * URIC ACID BLOOD(Performed 07/20/2016) * PHOSPHORUS BLOOD(Performed 07/20/2016) * MAGNESIUM BLOOD(Performed 07/20/2016) * URINALYSIS W/MICROSCOPIC NO CULTURE(Performed 07/20/2016) * CULTURE URINE(Performed 07/20/2016) * BK VIRUS PCR QUANTITATIVE URINE(Performed 07/20/2016) * CULTURE URINE(Performed 07/20/2016) * CULTURE URINE(Performed 07/20/2016) * CULTURE URINE(Performed 07/20/2016) * CULTURE URINE(Performed 07/20/2016) * LIPID PROFILE(Performed 06/22/2016) * TACROLIMUS LEVEL(Performed 06/22/2016) * PTH INTACT W/O CALCIUM(Performed 06/22/2016) * MICROALB/CREAT RATIO URINE RANDOM PANEL(Performed 06/22/2016) * CBC W AUTO DIFFERENTIAL(Performed 06/22/2016) * COMPREHENSIVE METABOLIC PANEL(Performed 06/22/2016) * URIC ACID BLOOD(Performed 06/22/2016) * PHOSPHORUS BLOOD(Performed 06/22/2016) * MAGNESIUM BLOOD(Performed 06/22/2016) * URINALYSIS W/MICROSCOPIC NO CULTURE(Performed 06/22/2016) * CULTURE URINE(Performed 06/22/2016) * BK VIRUS PCR QUANTITATIVE URINE(Performed 06/22/2016) * CULTURE URINE(Performed 06/22/2016) * CULTURE URINE(Performed 06/22/2016) * CULTURE URINE(Performed 06/22/2016) * CULTURE URINE(Performed 06/22/2016) * TACROLIMUS LEVEL(Performed 05/18/2016) * PTH INTACT W/O CALCIUM(Performed 05/18/2016) * MICROALB/CREAT RATIO URINE RANDOM PANEL(Performed 05/18/2016) * LIPID PROFILE(Performed 05/18/2016) * PHOSPHORUS BLOOD(Performed 05/18/2016) * MAGNESIUM BLOOD(Performed 05/18/2016) * URIC ACID BLOOD(Performed 05/18/2016) * COMPREHENSIVE METABOLIC PANEL(Performed 05/18/2016) * URINALYSIS W/MICROSCOPIC NO CULTURE(Performed 05/18/2016) * CBC W AUTO DIFFERENTIAL(Performed 05/18/2016) * BK VIRUS PCR QUANTITATIVE URINE(Performed 05/18/2016) * CULTURE URINE(Performed 05/18/2016) * TACROLIMUS LEVEL(Performed 04/25/2016) * MICROALB/CREAT RATIO URINE RANDOM PANEL(Performed 04/25/2016) * PTH INTACT W/O CALCIUM(Performed 04/25/2016) * LIPID PROFILE(Performed 04/25/2016) * URINALYSIS W/MICROSCOPIC NO CULTURE(Performed 04/25/2016) * COMPREHENSIVE METABOLIC PANEL(Performed 04/25/2016) * URIC ACID BLOOD(Performed 04/25/2016) * PHOSPHORUS BLOOD(Performed 04/25/2016) * MAGNESIUM BLOOD(Performed 04/25/2016) * CBC W AUTO DIFFERENTIAL(Performed 04/25/2016) * CULTURE URINE(Performed 04/25/2016) * CULTURE URINE(Performed 04/25/2016) * BK VIRUS PCR QUANTITATIVE URINE(Performed 04/25/2016) * QUANTIFERON TB-GOLD(Performed 03/28/2016) * VITAMIN D 25-HYDROXY(Performed 03/28/2016) * TACROLIMUS LEVEL(Performed 03/20/2016) * MICROALB/CREAT RATIO URINE RANDOM PANEL(Performed 03/20/2016) * PTH INTACT W/O CALCIUM(Performed 03/20/2016) * PHOSPHORUS BLOOD(Performed 03/20/2016) * MAGNESIUM BLOOD(Performed 03/20/2016) * URIC ACID BLOOD(Performed 03/20/2016) * COMPREHENSIVE METABOLIC PANEL(Performed 03/20/2016) * LIPID PROFILE(Performed 03/20/2016) * URINALYSIS W/MICROSCOPIC NO CULTURE(Performed 03/20/2016) * CBC W AUTO DIFFERENTIAL(Performed 03/20/2016) * BK VIRUS PCR QUANTITATIVE URINE(Performed 03/20/2016) * CULTURE URINE(Performed 03/20/2016) * PTH INTACT W/O CALCIUM(Performed 02/17/2016) * TACROLIMUS LEVEL(Performed 02/17/2016) * MICROALB/CREAT RATIO URINE RANDOM PANEL(Performed 02/17/2016) * COMPREHENSIVE METABOLIC PANEL(Performed 02/17/2016) * URIC ACID BLOOD(Performed 02/17/2016) * PHOSPHORUS BLOOD(Performed 02/17/2016) * MAGNESIUM BLOOD(Performed 02/17/2016) * CBC W AUTO DIFFERENTIAL(Performed 02/17/2016) * URINALYSIS W/MICROSCOPIC NO CULTURE(Performed 02/17/2016) * LIPID PROFILE(Performed 02/17/2016) * CULTURE URINE(Performed 02/17/2016) * BK VIRUS PCR QUANTITATIVE URINE(Performed 02/17/2016) * CULTURE URINE(Performed 02/17/2016) * CULTURE URINE(Performed 02/17/2016) * CULTURE URINE(Performed 02/17/2016) * CULTURE URINE(Performed 02/17/2016) * TACROLIMUS LEVEL(Performed 01/19/2016) * PTH INTACT W/O CALCIUM(Performed 01/19/2016) * MICROALB/CREAT RATIO URINE RANDOM PANEL(Performed 01/19/2016) * COMPREHENSIVE METABOLIC PANEL(Performed 01/19/2016) * URIC ACID BLOOD(Performed 01/19/2016) * PHOSPHORUS BLOOD(Performed 01/19/2016) * MAGNESIUM BLOOD(Performed 01/19/2016) * LIPID PROFILE(Performed 01/19/2016) * URINALYSIS W/MICROSCOPIC NO CULTURE(Performed 01/19/2016) * CBC W AUTO DIFFERENTIAL(Performed 01/19/2016) * CULTURE URINE(Performed 01/19/2016) * BK VIRUS PCR QUANTITATIVE URINE(Performed 01/19/2016) * CULTURE URINE(Performed 01/19/2016) * CULTURE URINE(Performed 01/19/2016) * CULTURE URINE(Performed 01/19/2016) * LIPID PROFILE(Performed 12/16/2015) * TACROLIMUS LEVEL(Performed 12/16/2015) * PTH INTACT W/O CALCIUM(Performed 12/16/2015) * MICROALB/CREAT RATIO URINE RANDOM PANEL(Performed 12/16/2015) * CBC W AUTO DIFFERENTIAL(Performed 12/16/2015) * URINALYSIS W/MICROSCOPIC NO CULTURE(Performed 12/16/2015) * COMPREHENSIVE METABOLIC PANEL(Performed 12/16/2015) * URIC ACID BLOOD(Performed 12/16/2015) * PHOSPHORUS BLOOD(Performed 12/16/2015) * MAGNESIUM BLOOD(Performed 12/16/2015) * CULTURE URINE(Performed 12/16/2015) * BK VIRUS PCR QUANTITATIVE URINE(Performed 12/16/2015) * CULTURE URINE(Performed 12/16/2015) * CULTURE URINE(Performed 12/16/2015) * CULTURE URINE(Performed 12/16/2015) * CULTURE URINE(Performed 12/16/2015) * CULTURE URINE(Performed 12/16/2015) Results * US THYROID (01/01/2022 1:29 PM CDT) Anatomical Region Laterality Modality Chest Ultrasound 01/01/2022 4:30 PM CDT Impressions 01/01/2022 4:37 PM CDT IMPRESSION: Findings consistent with multinodular goiter. Comparison with priors would be recommended.. > Interpreting Provider: Brock Hull MD on 01/01/2022 4:37 PM Narrative 01/01/2022 4:37 PM CDT PROCEDURE: US THYROID, DATE/TIME OF EXAM: 01/01/2022 1:30 PM, LOCATION [facility] INDICATION: Z86.39: Personal history of other endocrine, nutritional and metabolic disease. Multinodular thyroid goiter. COMPARISON: None. TECHNIQUE: Real-time high frequency ultrasound of the thyroid performed by cardiac technologist including color Doppler imaging and DICOM image capture. FINDINGS: Right lobe: The right lobe measures 7.11 x 4.80 x 3.36 cm. Multiple right thyroid nodules are present. The largest in the mid to inferior region measures 2.5 x 1.9 x 2.0 cm. Another inferiorly measures 2.4 x 1.8 x 1.9 cm. One in the mid region measures 2.4 x 1.5 x 2.5 cm. There is mixed cystic change throughout. Left lobe: The left lobe measures 7.51 x 4.41 x 4.15 cm. There are least 3 nodules demonstrated with the largest inferiorly measuring 3.7 x 3.2 x 3.8 cm. This has some central cystic change appears isoechoic. Another measures 1.4 x 1.2 x 1.4 cm in the midportion and another 1.5 x 1.2 x 1.5 cm superiorly. There are scattered cystic change throughout. Isthmus: The isthmus measures 1.14 cm. It is not well seen due to overlying nodules. There is a 0.66 x 0.47 x 0.64 cm mixed cystic solid nodule in the isthmus. The above findings are consistent with multinodular thyroid goiter. Comparison with outside prior imaging would be recommended. Procedure Note Brock Hull MD - 01/01/2022 PROCEDURE: US THYROID, DATE/TIME OF EXAM: 01/01/2022 1:30 PM, LOCATION [facility] INDICATION: Z86.39: Personal history of other endocrine, nutritional and metabolic disease. Multinodular thyroid goiter. COMPARISON: None. TECHNIQUE: Real-time high frequency ultrasound of the thyroid performed byultrasound technologist including color Doppler imaging and DICOM image capture. FINDINGS: Right lobe: The right lobe measures 7.11 x 4.80 x 3.36 cm. Multipleright thyroid nodules are present. The largest in the mid to inferior region measures 2.5 x 1.9 x 2.0 cm. Another inferiorly measures 2.4 x 1.8 x 1.9 cm. One in the mid region measures 2.4 x 1.5 x 2.5 cm. There is mixed cystic change throughout. Left lobe: The left lobe measures 7.51 x 4.41 x 4.15 cm. There are least3 nodules demonstrated with the largest inferiorly measuring 3.7 x 3.2 x3.8 cm. This has some central cystic change appears isoechoic. Anothermeasures 1.4 x 1.2 x 1.4 cm in the midportion and another 1.5 x 1.2 x 1.5 cm superiorly. There are scattered cystic change throughout. Isthmus: The isthmus measures 1.14 cm. It is not well seen due tooverlying nodules. There is a 0.66 x 0.47 x 0.64 cm mixed cystic solid nodule inthe isthmus. The above findings are consistent with multinodular thyroid goiter. Comparison with outside prior imaging would be recommended. IMPRESSION: Findings consistent with multinodular goiter. Comparison with priorswould be recommended.. > Interpreting Provider: Brock Hull MD on 01/01/2022 4:37 PM Nikkie Gordon MD US ORDERABLES * MAMMO BILAT SCREENING W JAGDEEP (12/18/2021 [...] patient. The patient is established with the [facility] surgical clinic and an electronic message was [...] parenchyma. Nikkie Gordon MD MAMMO ORDERABLES * NM MYOCARD PERF REST STRESS (11/22/2021 10:58 AM CDT) Anatomical Region Laterality Modality Chest Nuclear Digisoni cs Tyson Bales MD NM ORDERABLES * ECHOCARDIOGRAM 2D WITH DOPPLER (11/22/2021 7:33 AM CDT) 11/22/2021 7:33 AM CDT Narrative Procedure Note Tyson Bales MD - 11/23/2021 . [facility] [address] [place] [address] Echocardiography Examination Transthoracic Name: VIJAY VALDIVIA MPI#: MR#: [id number] Admission Number: [id number] Study Date: 11/22/2021 Study Time: 07:56 AM Date Of : 1955 Age: 66 years Height: 64 in. (162.6 cm) Weight: 191 lbs. (86.64 kg) BSA: 1.92 m2 Gender: Female Blood Pressure: 108 mmHg / 76 mmHg Heart Rate: 74 bpm Exam Details Procedure Ordered: ECHOCARDIOGRAM 2D W/DOPPLER Procedure Components: Complete 2D, M-mode, complete spectral Doppler, color Doppler Procedure Status: Routine study Facility Location: [facility] Indication: ESRD Procedure Investor Relations Analyst: Toshia Fox RDCS Ordering Provider: Tyson Bales MD Reading Physician: Tyson Bales MD Conclusions Left Ventricle: Left ventricle is normal in size. Normal global systolic left ventricular function. Left ventricle wall thickness is mildly increased. There are no regional wall motion abnormalities. Left ventricular diastolic function parameters are normal. Left Atrium: The left atrium is mildly dilated. Right Atrium: The right atrium is mildly dilated. Mitral Valve: Mild mitral regurgitation. Aortic Valve: Mild aortic regurgitation is present. Patient: VIJAY VALDIVIA Study Date: 11/22/2021 07:56 AM Page 1 of 4 Tricuspid Valve Measurements RVSP: 41 mmHg. Follow up: Findings Left Ventricle: Left ventricle is normal in size. Normal global systolic left ventricular function. EF evaluated by biplane method of disks. Left ventricle wall thickness is mildly increased. There are no regional wall motion abnormalities. Left ventricular diastolic function parameters are normal. Right Ventricle: Normal size right ventricle. Right ventricular wall thickness is normal. Right ventricular systolic function is normal. Pulmonary artery pressure normal. Left Atrium: The left atrium is mildly dilated. Right Atrium: The right atrium is mildly dilated. Mitral Valve: Mitral leaflets exhibit normal cuspal separation. Mild mitral regurgitation. No mitral valve stenosis. Aortic Valve: Aortic leaflets exhibit normal cuspal separation. Mild aortic regurgitation is present. There is no aortic stenosis. Tricuspid Valve: Tricuspid valve leaflets are normal. No tricuspid regurgitation. No tricuspid valve stenosis. Pulmonic Valve: Pulmonic leaflets exhibit normal cuspal separation. No pulmonic valve regurgitation is evident. There is no pulmonic valve stenosis. Aorta: The aorta is normal. No dilation of the ascending aorta. The aortic root exhibits normal size. Great Vessels: IVC: The inferior vena cava is normal in size and course. Pericardium: The pericardium is normal in appearance. No pericardial effusion. Clinical Data Smoking: Yes Comment: HTN, NEREYDA, ESRD, Smoker Measurements Anatomy Label Value Normal Value Aorta AoRoot, MM 2.9 cm (2.2cm - 3.7cm) Aortic Valve AV Vmean 1.72 m/s Aortic Valve AV VTI 52.64 cm Aortic Valve AV PGmax 23 mmHg Aortic Valve AV PGmean 13 mmHg Aortic Valve AR PHT 0.66 s Aortic Valve AR Vmax 5.13 m/s Aortic Valve AR PHT 659 ms Aortic Valve AV Vmax, Curve 2.38 m/s (1m/s - 1.7m/s) Patient: VIJAY VALDIVIA Study Date: 11/22/2021 07:56 AM Page 2 of 4 Aortic Valve LVOT VTI / AV VTI 0.68 Aortic Valve LESA D (continuity eq. VTI) 2.4 cm Aortic Valve LESA Index (continuity 1.15 cm /m eq.Vmax) Aortic Valve AV Opening, MM 1.7 cm Aortic Valve LVOT Vmax / AV Vmax 0.64 Interventricular septum IVSd, 2D 1.4 cm (0.6cm - 1.1cm) Left Atrium LADs, MM 4.9 cm (2.7cm - 3.8cm) Left Atrium LA Area s, A4C 27.5 cm (0cm - 20cm ) Left Atrium LA Area s, A2C 25.2 cm (0cm - 20cm ) Left Atrium LAESV, MOD4 88 ml (22ml - 52ml) Left Atrium LAESV, MOD2 86 ml (22ml - 52ml) Left Atrium LA/AO Ratio, MM 1.67 Left Atrium LAESV index, MOD4 45.8 ml/m Left Atrium LAESV index, MOD2 44.8 ml/m Left Atrium LAESV index, AL4 50.5 ml/m Left Atrium LAESV index, AL2 47.9 ml/m Left Ventricle LVOT Vmax 1.53 m/s (0.7m/s - 1.1m/s) Left Ventricle LVOTd 2.1 cm (1.8cm - 2cm) Left Ventricle LVOT VTI 35.82 cm (18cm - 22cm) Left Ventricle LVOT PGmax 9 mmHg Left Ventricle LVDd, 2D 6.1 cm (3.7cm - 5.2cm) Left Ventricle LVDs, 2D 3.4 cm (2.2cm - 3.5cm) Left Ventricle LVPWd, 2D 1.4 cm (0.6cm - 0.9cm) Left Ventricle FS, 2D 44.26 % Left Ventricle LVEDV, BP 85 ml (56ml - 104ml) Left Ventricle LVESV, BP 22 ml (19ml - 49ml) Left Ventricle LVEDV Index, BP 44.3 ml/m (35ml/m - 75ml/m ) Left Ventricle LVESV Index, BP 11.5 ml/m (12ml/m - 30ml/m ) Left Ventricle LVOT PGmean 6 mmHg Left Ventricle LVOT Vmean 1.22 m/s Left Ventricle Diastolic MV E Vmax 0.87 m/s Function Left Ventricle Diastolic MV A Vmax 0.71 m/s Function Left Ventricle Diastolic MV E/A 1.23 Function Left Ventricle Diastolic MV E/E' lateral 9.16 Function Left Ventricle Diastolic MV E/E' septal 17.27 (0.45 - 1.25) Function Left Ventricle Diastolic MV DT 173 ms Function Left Ventricle Diastolic MV E' septal 0.05 m/s Function Left Ventricle Diastolic MV E' lateral 0.1 m/s Function Left Ventricle Diastolic MV E/E' mean 11.6 Function Left Ventricle Diastolic MV E' mean 0.08 m/s Patient: VIJAY VALDIVIA Study Date: 11/22/2021 07:56 AM Page 3 of 4 Function Mitral Valve MV Dec [place] 5.05 m/s Pulmonic Valve PV PGmax 5 mmHg Pulmonic Valve PV Vmax, Caliper 1.12 m/s (0.6m/s - 0.9m/s) Right Atrium RA Area s 21.7 cm Right Atrium RA Vol, 2D 65 ml Right Atrium RA Index 33.9 ml/m Right Ventricle Diastolic TR Pmax 38 mmHg Function Tricuspid Valve RVSP 41 mmHg Tricuspid Valve RA Pressure 3 mmHg Tricuspid Valve TR Vmax 3.08 m/s (No Signature Object) Patient: VIJAY VALDIVIA Study Date: 11/22/2021 07:56 AM Page 4 of 4 Tyson Bales MD ECHO ORDERABLES Performing Organization Address [facility] de Phone Number [facility] CCW * EKG 12-LEAD (11/06/2021) Tyson Bales MD ECG ORDERABLES Performing Organization Address [facility] de Phone Number [facility] RESULT SCAN * CARDIAC RHYTHM STRIP ORDER (11/01/2021 1:56 PM CDT) Narrative 11/01/2021 1:56 PM CDT Ordered by an unspecified provider. Scanned Document CARDIAC SERVICES ORD ERABLES * IR ANGIO AV SHUNT IMAGING (10/25/2021 1:30 PM CDT) Anatomical Region Laterality Modality Lower Extremity, Upper Extremity, Chest X-Ray Angiography Narrative 10/25/2021 1:34 PM CDT Adriel Case MD 10/25/2021 1:36 PM [facility] Vijay Valdivia 1955 DATE OF PROCEDURE: 10/25/2021 ORDERING PHYSICIAN: Adriel Case MD PROCEDURE: Left forearm AV fistulogram showing no areas of significant stenosis. INDICATIONS FOR PROCEDURE: Increased pulsatility of left forearm AV fistula at dialysis. DESCRIPTION OF PROCEDURE: Once patient was prepped and draped in usual sterile fashion she was given 1 percent lidocaine as local anesthetic. The micropuncture set was used to cannulate the left forearm AV fistula and fistulogram was obtained. There was good retrograde flow back to the arterial anastomosis. There was good flow through the main body of the forearm cephalic vein fistula and then there was flow into the antecubital vein with flow into the basilic and cephalic veins in the upper arm. Primary flow was through a very large basilic vein into the subclavian vein and superior vena cava. There were no areas of stenosis. Patient tolerated the procedure well was found to be stable postoperatively. Preoperatively the patient understood the risks of procedure be bleeding and infection want to proceed. During the procedure. The patient did receive 50 mg of Benadryl, 3.1 mGy and 30 cc of Isovue. DICTATED BY: Adriel Case M.D./kaylan Interventional Post-Operative/Procedure Notes Surgeon: Adriel Case MD Pre Procedure Diagnosis: ESRD Post Procedure Diagnosis: ESRD Anesthesia: Local 1% lidocaine and IV sedation Disposition: OPS Status: Stable Drain or Pack: None Additional Information/Complications: None Estimated Blood Loss: Negligible Specimen: None Abebe Carbajal MD IR ORDERABLES * URINALYSIS COMPLETE W MICROSCOPIC (10/10/2018 9:30 AM CDT) Only the most recent of28 resultswithin the time period is included. Color UA YELLOW YELLOW [facility] Appearance CLEAR CLEAR [facility] Specific Tripp UA 1.004 1.001 - 1.035 [facility] pH UA 6.5 5.0 - 8.0 [facility] Glucose UA NEGATIVE NEGATIVE [facility] Bilirubin UA NEGATIVE NEGATIVE [facility] Ketone UA NEGATIVE NEGATIVE [facility] Blood UA NEGATIVE NEGATIVE [facility] Protein UA NEGATIVE NEGATIVE [facility] Nitrite UA NEGATIVE NEGATIVE [facility] Leukocyte UA NEGATIVE NEGATIVE [facility] WBC UA NONE SEEN < OR = 5 /HPF [facility] RBC UA NONE SEEN < OR = 2 /HPF [facility] Epithelial Cell UA 0-5 < OR = 5 /HPF [facility] Bacteria UA NONE SEEN NONE SEEN /HPF [facility] Hyaline Casts NONE SEEN NONE SEEN /LPF [facility] Comment: Test Performed at: [facility] [address] [address] [place] [address] SHAN HOUSTON DO,MPH Urine URINE SPECIMEN OBTAINED BY CLEAN CATCH PROCEDURE / Unknown 10/10/2018 9:30 AM CDT 10/10/2018 9:34 AM CDT Jaiden Raineyvis PA-C LAB - URINALYSIS ORDERABLES Performing Organization Address [facility] [place] [address] * (ABNORMAL) URIC ACID BLOOD (10/10/2018 9:30 AM CDT) Only the most recent of36 resultswithin the time period is included. Uric Acid 7.3(H) 2.5 - 7.0 mg/dL [facility] Comment: Therapeutic target for gout patients: <6.0 mg/dL Test Performed at: [place] [address] SHAN HOUSTON DOMPH Blood BLOOD SPECIMEN / Unknown 10/10/2018 9:30 AM CDT 10/10/2018 9:34 AM CDT Jaiden Bustillos [employer] PA-C LAB - CHEMISTRY ORDERABLES Performing Organization Address [facility] [place] [address] * (ABNORMAL) TACROLIMUS LEVEL (10/10/2018 9:30 AM CDT) Only the most recent of38 resultswithin the time period is included. Tacrolimus 3.9(L) mcg/L [facility] Comment: No definitive therapeutic or toxic ranges have been established. Optimal blood drug levels are influenced by type of transplant, patient response, time post- transplant, co-administration of other drugs, and drug formulation. The following trough range is a suggested guideline: 5.0-20.0 mcg/L. This test was developed and its analytical performance characteristics have been determined by [employer] It has not been cleared or approved by the FDA. This assay has been validated pursuant to the CLIA regulations and is used for clinical purposes. Test Performed at: [employer] [place] [address] SHAN HOUSTON DO,MPH Blood BLOOD SPECIMEN / Unknown 10/10/2018 9:30 AM CDT 10/10/2018 9:34 AM CDT Jaiden Galicia PA-C LAB - THERAPEUTIC DRUG MONITORING ORDERABLES Performing Organization Address [facility] [place] [address] * TRANSFERRIN (10/10/2018 9:30 AM CDT) Only the most recent of14 resultswithin the time period is included. Pathologist [facility] Transferrin 230 188 - 341 mg/dL [facility] Comment: Test Performed at: [employer] [address] SHAN HOUSTON DO,MPH Blood BLOOD SPECIMEN / Unknown 10/10/2018 9:30 AM CDT 10/10/2018 9:34 AM CDT Jaiden Galicia PA-C LAB - CHEMISTRY ORDERABLES Performing Organization Address [facility] [place] [address] * (ABNORMAL) PTH INTACT (10/10/2018 9:30 AM CDT) Only the most recent of13 resultswithin the time period is included. [facility] PTH Intact 315(H) 14 - 64 pg/mL [facility] Comment: Interpretive Guide Intact PTH Calcium ------- Normal Parathyroid Normal Normal Hypoparathyroidism Low or Low Normal Low Hyperparathyroidism Primary Normal or High High Secondary High Normal or Low Tertiary High High Non-Parathyroid Hypercalcemia Low or Low Normal High Test Performed at: [employer] [id number] SHAN HOUSTON DO,MPH Blood BLOOD SPECIMEN / Unknown 10/10/2018 9:30 AM CDT 10/10/2018 9:34 AM CDT Jaiden Galicia PA-C LAB - CHEMISTRY ORDERABLES Performing Organization Address [facility] Co de Phone Number [employer] [address] [place] [id number] * VITAMIN D 25-HYDROXY (10/10/2018 9:30 AM CDT) Only the most recent of16 resultswithin the time period is included. Vitamin D, 25 Hydroxy 30 30 - 100 ng/mL [facility] Comment: Vitamin D Status 25-OH Vitamin D: Deficiency: <20 ng/mL Insufficiency: 20 - 29 ng/mL Optimal: > or = 30 ng/mL For 25-OH Vitamin D testing on patients on D2-supplementation and patients for whom quantitation of D2 and D3 fractions is required, the QuestAssureD(TM) 25-OH VIT D, (D2,D3), LC/MS/MS is recommended: order code 22140 (patients >2yrs). For more information on this test, go to: http://education.[employer]/faq/UBR750 (This link is being provided for informational/educational purposes only.) Test Performed at: [facility] [address] [place] [address] SHAN HOUSTON DO,MPH Blood BLOOD SPECIMEN / Unknown 10/10/2018 9:30 AM CDT 10/10/2018 9:34 AM CDT Jaiden Galicia PA-C LAB - CHEMISTRY ORDERABLES Performing Organization Address [facility] Co de Phone Number [facility] [address] [place] [phone] * CULTURE URINE (10/10/2018 9:30 AM CDT) Only the most recent of77 resultswithin the time period is included. Pathologist [facility] Culture [facility] Comment: CULTURE, URINE, ROUTINE MICRO NUMBER: [id number] TEST STATUS: FINAL SPECIMEN SOURCE: URINE, CLEAN CATCH SPECIMEN QUALITY: ADEQUATE RESULT: No Growth REPORT COMMENT: FASTING:YES Test Performed at: [facility] [address] CHRISTIAN LIVINGSTON MD 10/10/2018 9:30 AM CDT 10/10/2018 9:34 AM CDT Jaiden Bustillos Frida STEVEN LAB - MICROBIOLOGY ORDERABLES Performing Organization Address [facility] Co de Phone Number [facility] [address] [place] [address] * BK VIRUS PCR QUANTITATIVE (10/10/2018 9:30 AM CDT) Only the most recent of23 resultswithin the time period is included. Pathologist [facility] Source PLASMA [facility] BK Virus DNA Quantitative PCR NO DNA DETECTED copies/m L [facility] Comment: REFERENCE RANGE: <500 copies/mL This test was developed and its analytical performance characteristics have been determined by [employer] Infectious Disease. It has not been cleared or approved by FDA. This assay has been validated pursuant to the CLIA regulations and is used for clinical purposes. Test Performed at: [facility] [address] [place] [address] Bautista LOZANO 10/10/2018 9:30 AM CDT 10/10/2018 9:34 AM CDT Jaiden Bustillos Frida STEVEN LAB - CHEMISTRY ORDERABLES Performing Organization Address [facility] Co de Phone Number [facility] [address] [place] [address] * (ABNORMAL) CBC W AUTO DIFFERENTIAL (10/10/2018 9:30 AM CDT) Only the most recent of40 resultswithin the time period is included. [facility] White Blood Cell Count 8.4 3.8 - 10.8 Thousand/u L [facility] RBC 3.11(L) 3.80 - 5.10 Million/uL [facility] Hemoglobin 9.3(L) 11.7 - 15.5 g/dL [facility] Hematocrit 28.7(L) 35.0 - 45.0 % [facility] MCV 92.3 80.0 - 100.0 fL [facility] MCH 29.9 27.0 - 33.0 pg [facility] MCHC 32.4 32.0 - 36.0 g/dL [facility] RDW 14.5 11.0 - 15.0 % [facility] Platelet Count 161 140 - 400 Thousand/u L [facility] MPV 10.6 7.5 - 12.5 fL [facility] Neutrophil Absolute 6149 1500 - 7800 cells/uL [facility] Lymphocytes Absolute 1411 850 - 3900 cells/uL [facility] Absolute Monocytes 622 200 - 950 cells/uL [facility] Eosinophils Absolute 202 15 - 500 cells/uL [facility] Basophils Absolute 17 0 - 200 cells/uL [facility] Granulocytes % 73.2 % [facility] Lymphocytes % 16.8 % [facility] Monocytes % 7.4 % [facility] Eosinophils % 2.4 % [facility] Basophils % 0.2 % [facility] Comment: Test Performed at: [employer] [address] [place] [address] SHAN HOUSTON DO,MPH Blood BLOOD SPECIMEN / Unknown 10/10/2018 9:30 AM CDT 10/10/2018 9:34 AM CDT Jaiden Galicia PA-C LAB - HEMATOLOGY ORDERABLES Performing Organization Address [facility] de Phone Number [facility] [id number] [place] [address] * PROTEIN URINE RANDOM QUANTITATIVE (10/10/2018 9:30 AM CDT) Only the most recent of14 resultswithin the time period is included. Pathologist [facility] Protein Random Urine 14 5 - 24 mg/dL [facility] Comment: Test Performed at: [employer] [address] [address] [facility] [place] [address] SHAN HOUSTON DO,MPH Urine URINE SPECIMEN OBTAINED BY CLEAN CATCH PROCEDURE / Unknown 10/10/2018 9:30 AM CDT 10/10/2018 9:34 AM CDT Jaiden Galicia PA-C LAB - URINE CHEMISTRY ORDERABLES Performing Organization Address [facility] [place] [address] * (ABNORMAL) COMPREHENSIVE METABOLIC PANEL (10/10/2018 9:30 AM CDT) Only the most recent of37 resultswithin the time period is included. Pathologist [facility] Glucose 84 65 - 99 mg/dL [facility] Comment: Fasting reference interval BUN 31(H) 7 - 25 mg/dL [facility] Creatinine 2.74(H) 0.50 - 0.99 mg/dL [facility] Comment: For patients >49 years of age, the reference limit for Creatinine is approximately 13% higher for people identified as -Indonesian. eGFR by MDRD 18(L) > OR = [...] 29 U/L [facility] Comment: Test Performed at: [place] [address] SHAN HOUSTON DO,MPH Blood BLOOD SPECIMEN / Unknown 10/10/2018 9:30 AM CDT 10/10/2018 9:34 AM CDT Jaiden Galicia PA-C LAB - CHEMISTRY ORDERABLES Performing Organization Address [facility] Phone Number [facility] [address] [place] [address] * PHOSPHORUS BLOOD (10/10/2018 9:30 AM CDT) Only the most recent of36 resultswithin the time period is included. Phosphorus 4.1 2.5 - 4.5 mg/dL [facility] Comment: Test Performed at: [facility] [place] [address] SHAN HOUSTON DO,MPH Blood BLOOD SPECIMEN / Unknown 10/10/2018 9:30 AM CDT 10/10/2018 9:34 AM CDT Jaiden Galicia PA-C LAB [place] [address] * MAGNESIUM BLOOD (10/10/2018 9:30 AM CDT) Only the most recent of38 resultswithin the time period is included. Magnesium 1.8 1.5 - 2.5 mg/dL [facility] Comment: Test Performed at: [employer] [address] SHAN HOUSTON DO,MPH Blood BLOOD SPECIMEN / Unknown 10/10/2018 9:30 AM CDT 10/10/2018 9:34 AM CDT Jaiden Bustillos Frida POZO-C LAB - CHEMISTRY ORDERABLES Performing Organization Address [facility] [place] [address] * IRON BLOOD (10/10/2018 9:30 AM CDT) Only the most recent of14 resultswithin the time period is included. Iron 54 45 - 160 mcg/dL [facility] Comment: Test Performed at: [employer] [place] [address] SHAN HOUSTON DO,MPH Blood BLOOD SPECIMEN / Unknown 10/10/2018 9:30 AM CDT 10/10/2018 9:34 AM CDT Jaiden Bustillos Frida POZO-C LAB - CHEMISTRY ORDERABLES Performing Organization Address [facility] [place] [address] * CREATININE URINE RANDOM (10/10/2018 9:30 AM CDT) Only the most recent of15 resultswithin the time period is included. Creatinine Urine 36 20 - 275 mg/dL [facility] Comment: Test Performed at: [place] [place] [address] SHAN HOUSTON DO,MPH Urine URINE SPECIMEN OBTAINED BY CLEAN CATCH PROCEDURE / Unknown 10/10/2018 9:30 AM CDT 10/10/2018 9:34 AM CDT Jaiden Bustillos [employer] PA-C LAB - URINE CHEMISTRY ORDERABLES Performing Organization Address [facility] Co de Phone Number [facility] [address] [place] [address] * FERRITIN (10/10/2018 9:30 AM CDT) Only the most recent of14 resultswithin the time period is included. Ferritin 205 20 - 288 ng/mL [facility] Comment: Test Performed at: [employer] [address] [place] [address] SHAN HOUSTON DO,MPH Blood BLOOD SPECIMEN / Unknown 10/10/2018 9:30 AM CDT 10/10/2018 9:34 AM CDT Jaiden [employer] PA-C LAB - CHEMISTRY ORDERABLES Performing Organization Address [facility] de Phone Number [facility] [address] [place] [address] * LIPID PROFILE (10/10/2018 9:30 AM CDT) Only the most recent of35 resultswithin the time period is included. Cholesterol 121 <200 mg/dL [facility] HDL Cholesterol 56 >50 mg/dL [facility] Triglycerides 112 <150 mg/dL [facility] LDL Calculated 45 mg/dL (calc) [facility] Comment: Reference range: <100 Desirable range <100 mg/dL for primary prevention; <70 mg/dL for patients with CHD or diabetic patients with > or = 2 CHD risk factors. LDL-C is now calculated using the Warren-Susi calculation, which is a validated novel method providing better accuracy than the Friedewald equation in the estimation of LDL-C. Warren BENTLEY et al. KYLIE. 2013;310(19): 7583-4507 (http://education.Nascentric.threadsy/faq/IQE296) CHOL/HDLC RATIO 2.2 <5.0 (calc) [facility] Non HDL Cholesterol 65 <130 mg/dL (calc) [facility] Comment: For patients with diabetes plus 1 major ASCVD risk factor, treating to a non-HDL-C goal of <100 mg/dL (LDL-C of <70 mg/dL) is considered a therapeutic option. Test Performed at: [facility] [id number] SHAN HOUSTON DO,MPH Blood BLOOD SPECIMEN / Unknown 10/10/2018 9:30 AM CDT 10/10/2018 9:34 AM CDT Jaiden Bustillos Frida STEVEN LAB - CHEMISTRY ORDERABLES Performing Organization Address [facility] de Phone Number [facility] [address] [place] [address] * (ABNORMAL) PTH INTACT+CALCIUM (09/19/2018 9:03 AM CDT) Only the most recent of2 resultswithin the time period is included. PTH Intact 303(H) 14 - 64 pg/mL [facility] Comment: Interpretive Guide Intact PTH Calcium ------- Normal Parathyroid Normal Normal Hypoparathyroidism Low or Low Normal Low Hyperparathyroidism Primary Normal or High High Secondary High Normal or Low Tertiary High High Non-Parathyroid Hypercalcemia Low or Low Normal High Test Performed at: [employer] [id number] SHAN HOUSTON DO,MPH Calcium 8.9 8.6 - 10.4 mg/dL [facility] Comment: Test Performed at: [employer] [id number] SHAN HOUSTON DO,MPH 09/19/2018 9:03 AM CDT 09/19/2018 9:05 AM CDT Jaiden Simentalvern Galicia PA-C LAB - CHEMISTRY ORDERABLES Performing Organization Address [facility] de Phone Number [facility] [address] [place] [address] * GLUCOSE - POINT OF CARE (08/27/2018 12:50 PM CDT) Only the most recent of4 resultswithin the time period is included. Pathologist [facility] Glucose WB/POC 94 70 - 115 mg/dL 08/27/2018 1:01 PM CDT [facility] Specimen Type Venous 08/27/2018 1:01 PM CDT [facility] Blood BLOOD SPECIMEN / Unknown 08/27/2018 12:50 PM CDT 08/27/2018 1:01 PM CDT Narrative [facility] - 08/27/2018 1:01 PM CDT EDUCATIONAL SPEECH LANGUAGE CLINICIAN: JOSHUA LECHUGA Marium Manning MD LAB - POINT OF CARE ORDERABLES Performing Organization Address City/State/[facility] Co de Phone Number [address] [phone] * US RENAL TRANSPLANT (08/27/2018 12:01 PM CDT) Anatomical Region Laterality Modality Abdomen Ultrasound 08/27/2018 11:3 3 AM CDT Impressions 08/27/2018 3:37 PM CDT IMPRESSION: 1. Severe hydronephrosis in the transplant kidney. 2. Echogenic renal parenchyma may be seen in the setting of chronic renal parenchymal disease. 3. Patent renal transplant vasculature. Severe hydronephrosis in the transplant kidney was discussed with Dr. Manning by Dr. Barrett on 08/27/2018 at 11:36 AM. Dictated by Caio Barrett MD (resident). This report was approved by Caio Barrett on 08/27/2018 11:41 AM . I, Dr. Bhavna EGAN M.D. have personally reviewed and interpreted this examination/study. This report was electronically signed by Bhavna EGAN M.D. on 08/27/2018 3:37 PM . Narrative 08/27/2018 3:37 PM CDT EXAMINATION: Transplant renal sonogram HISTORY: Status post renal transplant in 2007 with rising creatinine. COMPARISON: No prior study is available for comparison at the time of this dictation. FINDINGS: Kidney size: 13.6 x 7.5 x 7.2 cm Kidney volume: 383 mL Transplant vasculature: Superior arcuate resistive index: 0.80 Acceleration time: 0.08 seconds Mid arcuate resistive index: 0.69 Acceleration time: 0.02 seconds Inferior arcuate resistive index: 0.79 Acceleration time: 0.05 seconds Right renal artery resistive index: 0.74 Peak systolic velocity of the main renal artery: 31.7 cm/s Peak systolic velocity of the renal artery anastomosis: 136.3-138.3 cm/s Peak systolic velocity of the iliac artery adjacent to the anastomosis: 94.7 cm/s Perfusion is seen in all renal segments. The initial systolic upstroke is brisk. The renal vein is patent. The renal parenchymal echogenicity is increased. There is no evidence of solid renal mass or renal calculi. Severe hydronephrosis is present in the transplant kidney. No perinephric fluid is present. Procedure Note Merlene Egan MD - 08/27/2018 EXAMINATION: Transplant renal sonogram HISTORY: Status post renal transplant in 2007 with rising creatinine. COMPARISON: No prior study is available for comparison at the time ofthis dictation. FINDINGS: Kidney size: 13.6 x 7.5 x 7.2 cm Kidney volume: 383 mL Transplant vasculature: Superior arcuate resistive index: 0.80 Acceleration time: 0.08 seconds Mid arcuate resistive index: 0.69 Acceleration time: 0.02 seconds Inferior arcuate resistive index: 0.79 Acceleration time: 0.05 seconds Right renal artery resistive index: 0.74 Peak systolic velocity of the main renal artery: 31.7 cm/s Peak systolic velocity of the renal artery anastomosis: 136.3-138.3 cm/s Peak systolic velocity of the iliac artery adjacent to the anastomosis: 94.7 cm/s Perfusion is seen in all renal segments. The initial systolic upstrokeis brisk. The renal vein is patent. The renal parenchymal echogenicity is increased. There is no evidence of solid renal mass or renal calculi. Severe hydronephrosis is present inthe transplant kidney. No perinephric fluid is present. IMPRESSION: 1. Severe hydronephrosis in the transplant kidney. 2. Echogenic renal parenchyma may be seen in the setting of chronicrenal parenchymal disease. 3. Patent renal transplant vasculature. Severe hydronephrosis in the transplant kidney was discussed with Dr. Manning by Dr. Barrett on 08/27/2018 at 11:36 AM. Dictated by Caio Barrett MD (resident). This report was approved by Caio Barrett on 08/27/2018 11:41 AM . I, Dr. E. ISIN AKDUMAN, M.D. have personally reviewed and interpretedthis examination/study. This report was electronically signed by Bhavna EGAN M.D. on 08/27/2018 3:37 PM . Marium Manning MD US ORDERABLES * (ABNORMAL) URINALYSIS REFLEX TO MICROSCOPIC NO CULTURE (08/27/2018 9:54 AM [facility]) Only the most recent of4 resultswithin the time period is included. Color UA Straw Straw, Yellow, Colorless 08/27/2018 9:58 AM [facility] Clarity UA Clear Clear, t Cloudy 08/27/2018 9:58 AM [facility] Specific Tripp UA 1.004(L) 1.005 - 1.030 08/27/2018 9:58 AM [facility] pH UA 7.0 5.0 - 8.0 pH 08/27/2018 9:58 AM [facility] Protein UA Negative Negative mg/dL 08/27/2018 9:58 AM [facility] Glucose UA Negative Negative mg/dL 08/27/2018 9:58 AM [facility] Ketone UA Negative Negative mg/dL 08/27/2018 9:58 AM [facility] Bilirubin UA Negative Negative mg/dL 08/27/2018 9:58 AM [facility] Blood UA Negative Negative 08/27/2018 9:58 AM [facility] Nitrite UA Negative Negative 08/27/2018 9:58 AM [facility] Leukocyte Esterase Negative Negative 08/27/2018 9:58 AM [facility] Urobilinogen UA Negative Negative mg/dL 08/27/2018 9:58 AM [facility] RBC UA 0-2 None Seen, 0-2, 3-5 /HPF 08/27/2018 9:58 AM [facility] WBC UA None Seen None Seen, 0-5 /HPF 08/27/2018 9:58 AM [facility] Squamous Epithelial Cells UA 0-2 None Seen, 0-2 /HPF 08/27/2018 9:58 AM [facility] Urine URINE SPECIMEN OBTAINED BY CLEAN CATCH PROCEDURE / Unknown Collection / Unknown 08/27/2018 9:54 AM CDT 08/27/2018 9:54 AM T Marium Manning MD LAB - URINALYSIS ORD ERABLES [facility] [address] [phone] * (ABNORMAL) RENAL FUNCTION PANEL (08/27/2018 6:07 AM T) Only the most recent of4 resultswithin the time period is included. BUN 31(H) 7 - 26 mg/dL 08/27/2018 6:46 AM [facility] Creatinine 2.8(H) 0.6 - 1.2 mg/dL 08/27/2018 6:46 AM [facility] Sodium 143 136 - 145 mmol/L 08/27/2018 6:46 AM [facility] Potassium 4.6(H) 3.5 - 4.5 mmol/L 08/27/2018 6:46 AM [facility] Chloride 112(H) 98 - 107 mmol/L 08/27/2018 6:46 AM [facility] CO2 17(L) 22 - 29 mmol/L 08/27/2018 6:46 AM [facility] Glucose 115 70 - 115 mg/dL 08/27/2018 6:46 AM [facility] Albumin 3.5 3.4 - 5.0 g/dL 08/27/2018 6:46 AM [facility] Calcium 9.4 8.4 - 10.2 mg/dL 08/27/2018 6:46 AM [facility] Phosphorus 4.0 2.3 - 4.7 mg/dL 08/27/2018 6:46 AM [facility] Anion Gap 19(H) 8 - 18 08/27/2018 6:46 AM [facility] BUN/Creatinine Ratio 11 7 - 23 08/27/2018 6:46 AM [facility] Osmolality Calculated 303(H) 270 - 300 mOsm/kg 08/27/2018 6:46 AM [facility] eGFR 21(L) >60 mL/min/1.7 3 m2 08/27/2018 6:46 AM [facility] Blood BLOOD SPECIMEN / Unknown Lab Venipuncture / Unknown 08/27/2018 6:07 AM CDT 08/27/2018 6:17 AM CDT Betzy Bauer PA-C LAB - CHEMISTRY OR DERABLES Performing Organization Address [facility] Co [place] [address], [facility] [phone] * URIC ACID URINE RANDOM (08/26/2018 6:38 PM CDT) Uric Acid Urine 8.4 Not Established mg/dL 08/26/2018 7:11 PM CDT [facility] Urine URINE SPECIMEN OBTAINED BY CLEAN CATCH PROCEDURE / Unknown 08/26/2018 6:38 PM CDT 08/26/2018 6:38 PM CDT Abebe Asif DO LAB - URINE CHEMISTR Y ORDERABLES Performing Organization Address [facility] Co [place] [address], [facility] [phone] * SODIUM URINE RANDOM (08/26/2018 6:20 PM CDT) Only the most recent of2 resultswithin the time period is included. Sodium Urine <20 Not Established mmol/L 08/26/2018 7:11 PM CDT [facility] Urine URINE SPECIMEN OBTAINED BY CLEAN CATCH PROCEDURE / Unknown Collection / Unknown 08/26/2018 6:20 PM CDT 08/26/2018 6:38 PM CDT Abebe Asif DO LAB - URINE CHEMISTR Y ORDERABLES Performing Organization Address [facility] Co [place] [address], [facility] [phone] * UREA NITROGEN URINE RANDOM (08/26/2018 6:20 PM CDT) Only the most recent of2 resultswithin the time period is included. Urea Nitrogen Random Urine 171 Not Established mg/dL 08/26/2018 7:11 PM CDT [facility] Urine URINE SPECIMEN OBTAINED BY CLEAN CATCH PROCEDURE / Unknown Collection / Unknown 08/26/2018 6:20 PM CDT 08/26/2018 6:38 PM CDT Abebe Asif DO LAB - URINE CHEMISTR Y ORDERABLES [address] [phone] * POTASSIUM URINE RANDOM (08/26/2018 6:20 PM CDT) Potassium Urine 17 Not Established mmol/L 08/26/2018 7:11 PM CDT [facility] Urine URINE SPECIMEN OBTAINED BY CLEAN CATCH PROCEDURE / Unknown Collection / Unknown 08/26/2018 6:20 PM CDT 08/26/2018 6:38 PM CDT Betzy Bauer PA-C LAB - URINE CHEMIS TRY ORDERABLES Performing Organization Address City/[facility]/ZIP Co de Phone Number [address] [phone] * XR KNEE LEFT 2VW OR LESS (05/21/2018 1:39 PM FRONT END ASSISTANT) Anatomical Region Laterality Modality Lower Extremity Computed Radiogr aphy Narrative 05/26/2018 12:02 PM FRONT END ASSISTANT April Goncalves, RT(R) 05/26/2018 12:02 PM See Chart For Xray Report Yoni Srinivasan DO DIAGNOSTIC IMAGING O RDERABLES * (ABNORMAL) PROTEIN CREATININE RATIO URINE RANDOM PNL (11/15/2017 7:34 AM CDT) Only the most recent of10 resultswithin the time period is included. Creatinine Urine 98 20 - 320 mg/dL [facility] Protein/Creatini ne Ratio 306(H) 21 - 161 mg/g creat [facility] Protein Random Urine 30(H) 5 - 24 mg/dL [facility] Comment: Test Performed at: [facility] [id number] [place] [id number] SHAN HOUSTON DO,MPH 11/15/2017 7:34 AM CDT 11/15/2017 7:39 AM CDT Bethanie Orta MD LAB - URINE CHEMISTR Y ORDERABLES Performing Organization Address [facility] Co de Phone Number [facility] [address] [place] [address] * (ABNORMAL) PTH INTACT W/O CALCIUM (07/19/2017 10:39 AM CDT) Only the most recent of18 resultswithin the time period is included. PTH 224(H) 14 - 64 pg/mL [facility] ([facility]) Comment: Interpretive Guide Intact PTH Calcium ------- Normal Parathyroid Normal Normal Hypoparathyroidism Low or Low Normal Low Hyperparathyroidism Primary Normal or High High Secondary High Normal or Low Tertiary High High Non-Parathyroid Hypercalcemia Low or Low Normal High Test Performed at: [employer] [id number] SHAN HOUSTON DO,MPH 07/19/2017 10:3 9 AM CDT 07/19/2017 10:41 AM CDT Bethanie Orta MD LAB - CHEMISTRY ORDE RABLES Performing Organization Address [facility] de Phone Number [facility] (U) [address] [place] [address] * URINE MICROSCOPIC ONLY (07/19/2017 10:39 AM CDT) Only the most recent of6 resultswithin the time period is included. WBC Urine NONE SEEN < OR = 5 /HPF [facility] ([facility]) RBC Urine NONE SEEN < OR = 2 /HPF [facility] ([facility]) Squamous Epithelial Cells UA 0-5 < OR = 5 /HPF [facility] ([facility]) Bacteria UA NONE SEEN NONE SEEN /HPF [facility] ([facility]) Hyaline Casts UA NONE SEEN NONE SEEN /LPF [facility] ([facility]) Comment: Test Performed at: [employer] [id number] [id number] SHAN HOUSTON DO,MPH 07/19/2017 10:3 9 AM CDT 07/19/2017 10:41 AM CDT Bethanie Orta MD LAB - URINALYSIS ORD ERABLES Performing Organization Address City/[facility]/ZIP Co de Phone Number [facility] ([facility]) [address] * HEMOGLOBIN A1C (02/15/2017 11:02 AM CDT) Pathologist [facility] Hemoglobin A1c 5.5 <5.7 % of total Hgb [facility] ([facility]) Comment: For the purpose of screening for the presence of diabetes: <5.7% Consistent with the absence of diabetes 5.7-6.4% Consistent with increased risk for diabetes (prediabetes) > or =6.5% Consistent with diabetes This assay result is consistent with a decreased risk of diabetes. Currently, no consensus exists regarding use of hemoglobin A1c for diagnosis of diabetes in children. According to [place] Diabetes Association (ADA) guidelines, hemoglobin A1c <7.0% represents optimal control in non- diabetic patients. Different metrics may apply to specific patient populations. Standards of Medical Care in Diabetes(ADA). REPORT COMMENT: FASTING:YES AN UPDATE OR CORRECTION HAS BEEN MADE TO NAME Test Performed at: [facility] [address] [place] [address] SHAN HOUSTON DO,MPH 02/15/2017 11:0 2 AM CDT 02/15/2017 11:03 AM CDT Jaiden Galicia PA-C LAB - CHEMISTRY ORDERABLES Performing Organization Address City/[facility]/ZIP Co de Phone Number [facility] ([facility]) * (ABNORMAL) BK VIRUS PCR QUANTITATIVE URINE (11/09/2016 8:45 AM CDT) Only the most recent of12 resultswithin the time period is included. Pathologist [facility] BK Virus DNA Quantitative PCR [id number](H ) copies/mL [facility] ([facility]) Comment: REFERENCE RANGE: <500 copies/mL This test was developed and its analytical performance characteristics have been determined by [employer] Infectious Disease. It has not been cleared or approved by FDA. This assay has been validated pursuant to the CLIA regulations and is used for clinical purposes. Test Performed at: [employer] [address] [place] [id number] DUNG HARDEN MD,PHD 11/09/2016 8:45 AM CDT 11/09/2016 8:47 AM CDT Nick Burt MD LAB - MICROBIOLOGY O RDERABLES Performing Organization Address [facility]/ZIP Co de Phone Number [facility] ([facility]) * (ABNORMAL) MICROALB/CREAT RATIO URINE RANDOM PANEL (11/09/2016 8:45 AM CDT) Only the most recent of13 resultswithin the time period is included. Creatinine Urine 54 20 - 320 mg/dL [facility] ([facility]) Microalbumin Urine 2.7 mg/dL [facility] ([facility]) Comment: Reference Range Not established Urine Albumin/Creatinine Ratio 50(H) <30 mcg/mg creat [facility] ([facility]) Comment: The ADA defines abnormalities in albumin excretion as follows: Category Result (mcg/mg creatinine) Normal <30 Microalbuminuria 30-299 Clinical albuminuria > OR = 300 The ADA recommends that at least two of three specimens collected within a 3-6 month period be abnormal before considering a patient to be within a diagnostic category. Test Performed at: [facility] [address] [place] [address] SHAN HOUSTON DO,MPH 11/09/2016 8:45 AM CDT 11/09/2016 8:47 AM CDT Nick Burt MD LAB - URINE CHEMISTR Y ORDERABLES Performing Organization Address [facility] de Phone Number [facility] ([facility]) * (ABNORMAL) BASIC METABOLIC PANEL (CALCIUM TOTAL) (07/25/2016 10:14 AM CDT) BUN 23 7 - 26 mg/dL [facility] Creatinine 1.6(H) 0.6 - 1.2 mg/dL [facility] Sodium 140 136 - 145 mmol/L [facility] Potassium 4.5 3.5 - 4.5 mmol/L [facility] Chloride 108(H) 98 - 107 mmol/L [facility] CO2 20(L) 22 - 29 mmol/L [facility] Glucose 84 70 - 115 mg/dL [facility] Calcium 8.9 8.4 - 10.2 mg/dL [facility] Anion Gap 17 8 - 18 [facility] BUN/Creatinine Ratio 14 7 - 23 [facility] Osmolality Calculated 293 270 - 300 mOsm/kg [facility] eGFR 40(L) >60 mL/min/1.7 3 m2 [facility] Blood specimen (specimen) BLOOD SPECIMEN / Unknown 07/25/2016 10:14 AM CDT 07/25/2016 10:32 AM CDT Bethanie Orta MD LAB - CHEMISTRY [place] [facility] Organization Address City/State/[facility] Co de Phone Number [address] [phone] * (ABNORMAL) CBC W/O DIFFERENTIAL (07/25/2016 4:57 AM CDT) WBC 8.3 3.5 - 10.5 10 3/uL [facility] RBC 3.60(L) 3.90 - 5.00 10 6/uL [facility] Hemoglobin 10.7(L) 12.0 - 15.5 g/dL [facility] Hematocrit 32.8(L) 35.0 - 45.0 % [facility] MCV 91.1 81.0 - 97.0 fL [facility] MCH 29.7 28.0 - 34.0 pg [facility] MCHC 32.6 32.0 - 36.0 g/dL [facility] Platelet Count 155 150 - 400 10 3/uL [facility] RDW-SD 49.4 36.0 - 50.0 fL [facility] RDW-CV 14.8 11.2 - 14.8 % [facility] MPV 11.7 9.3 - 12.8 fL [facility] Blood specimen (specimen) BLOOD SPECIMEN / Unknown 07/25/2016 4:57 AM CDT 07/25/2016 5:04 AM CDT Nick Burt MD LAB - HEMATOLOGY ORD ERABLES [address] [phone] * (ABNORMAL) DIFFERENTIAL MANUAL (07/24/2016 7:30 PM CDT) WBC (corrected for NRBC) 10.0 10 3/uL [facility] Total Cell Count 100 [facility] Neutrophils Absolute Manual 7.40(H) 1.60 - 7.00 10 3/uL [facility] Comment:(BANDS+SEGS) x WBC = NEUT # (ANC) Lymphocyte Absolute Manual 1.70 0.80 - 2.90 10 3/uL [facility] Monocytes Absolute Manual 0.70(H) 0.14 - 0.66 10 3/uL [facility] Eosinophils Absolute Manual 0.20 0.00 - 0.22 10 3/uL [facility] Band % Manual 1 0 - 10 % [facility] Neutrophil % Manual 73(H) 30 - 60 % [facility] Lymphocyte % Manual 17(L) 20 - 45 % [facility] Monocytes % Manual 7 2 - 10 % [facility] Eosinophils % Manual 2 1 - 6 % [facility] Platelet Estimate Adequate Adequate [facility] RBC Morphology Normal [facility] Blood specimen (specimen) BLOOD SPECIMEN / Unknown 07/24/2016 7:30 PM CDT 07/24/2016 7:42 PM CDT Nick Burt MD LAB - HEMATOLOGY ORD ERABLES [address] [phone] * QUANTIFERON TB-GOLD (03/28/2016 2:37 PM FRONT END ASSISTANT) Pathologist [facility] QuantiFERON TB Gold NEGATIVE NEGATIVE [facility] ([facility]) Comment: Negative test result. M. tuberculosis complex infection unlikely. QuantiFERON Nil Value 0.00 IU/mL [facility] ([facility]) QuantiFERON Mitogen Value >10.00 IU/mL [facility] ([facility]) QuantiFERON TB Antigen minus Nil value 0.00 IU/mL [facility] ([facility]) Comment: The Nil tube value is used to determine if the patient has a preexisting immune response which could cause a false-positive reading on the test. In order for a test to be valid, the Nil tube must have a value of less than or equal to 8.0 IU/mL. The mitogen control tube is used to assure the patient has a healthy immune status and also serves as a control for correct blood handling and incubation. It is used to detect false-negative readings. The mitogen tube must have a gamma interferon value of greater than or equal to 0.5 IU/mL higher than the value of the Nil tube. The TB antigen tube is coated with the M. tuberculosis specific antigens. For a test to be considered positive, the TB antigen tube value minus the Nil tube value must be greater than or equal to 0.35 IU/mL. For additional information, please refer to http://education.[employer].threadsy/faq/QFT (This link is being provided for informational/ educational purposes only.) Test Performed at: [facility] [address] [place] [address] SHAN HOUSTON DO,MPH Blood specimen (specimen) BLOOD SPECIMEN / Unknown 03/28/2016 2:37 PM FRONT END ASSISTANT 03/28/2016 2:42 PM FRONT END ASSISTANT Nick Burt MD LAB - CHEMISTRY [place] [facility] Organization Address City/State/ZIP Co de Phone Number [facility]) Care Teams Factory Clerk Relationship Specialty Start Date End Date Nikkie Gordon MD [address] [place] [address] PCP - General Family Medicine 11/06/21 Nikkie Gordon MD [address] [place] [address] PCP - Strive [facility] 10/27/23 Tyson Bales MD [address] [place] [address] Cardiovascular Disease 11/06/21
--- OUTSIDE RECORDS SUMMARY | 2024-06-24 01:52 | XMS_ITS | Encounter Summary ---
Author Organization [facility] Address [address] [place] [address] Phone Care Team Providers Care Dye Mixer Name Role Phone Nikkie Gordon MD Primary Care Provider [phone] Encounter Details Date Type Department Care Team (Late st Contact Info) Description 06/18/2019 Orders Only [facility]. [address] [facility] [place] [address] Trisha Bustillos MA [address] [facility] [facility] [place] [address] Chronic kidney disease, stage 3 (moderate) ([facility]) Social History Tobacco Use Types Packs/Day Years [...] (moderate) documented in this encounter Care Teams Dye Mixer Relationship Specialty Start Date End Date Nikkie Gordon MD [address] [place] [address] PCP - General 01/24/20 documented as of this encounter
--- OUTSIDE RECORDS SUMMARY | 2024-06-24 01:52 | XMS_ITS | Referral Summary ---
Author Organization [facility] Address [address] [place] [address] Care Team Providers Care Family Living Educator Name Role Phone Nikkie Gordon MD Primary Care Provider [phone] Tyson Bales MD Unavailable Unavailable Nikkie Gordon MD Unavailable Source Comments [facility],non-owned Affiliates and Associated Physician Practices is amultiple site organization consisting of ambulatory clinics and hospital sitesin [place], [place]. This disclosure is being madepursuant to the Care Everywhere program and may not contain all information available regarding this patient. Last updated 18.[facility] Allergies Active Allergy Reactions Criticality Noted Date [...] 5 MG tabletIndications:Jeannette santiago replaced by transplant ([facility]) Take 1 tablet by mouth once daily Z94.0 90 tablet 3 07/09/2018 Active tacrolimus (PROGRAF) 1 MG capsuleIndications:His tory of renal transplantation ([facility]),Long-term use of immunosuppressant medication Taking [...] HTN and atrophied kidneys, on HD (2005~2007). 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 Essential hypertension 11/15/2015 Chronic kidney disease-mineral and [...] Mass Index 32.92 11/06/2021 9:26 AM CDT Functional Status Functional Status Response Date of Assess ment Is person deaf or have serious hearing difficult y? No 08/26/2018 Is person blind or have serious difficulty seein g? No 08/26/2018 Does person have serious dif ficulty walking/climbing stairs? No 08/26/2018 Does person have difficulty dressing/bathing? No 08/26/2018 Does person have difficulty doing errands alone? No 08/26/2018 Cognitive Status Response Date of Assessm ent Does person have difficulty concentrating/remembering/making decisions? No 08/26/2018 Plan of Treatment Not on file Goals Goal Patient Goal Type Associated Problems Recent Progress Patient-Stated? Author Medication Management General On track( 018 2:02 PM CDT) No Miley Braksdale RN Note: Expected end date: Ongoing Interventions: [...] patient. The patient is established with the [facility] surgical clinic and an electronic message was [...] approximately 13% higher for people identified as -Citizen [place]. eGFR by MDRD 18(L) > OR = [...] 29 U/L [facility] Comment: Test Performed at: [facility] [address] [place] [address] SHAN HOUSTON DO,MPH Blood BLOOD SPECIMEN / Unknown 10/10/2018 9:30 AM CDT 10/10/2018 9:34 AM CDT Jaiden Galicia PA-C LAB - CHEMISTRY ORDERABLES [facility] [address] [place] [address] from Last 3 Months or Most Recently Relevant to Health Maintenance Advance Directives * Full Code (Latest Code Status on File) Date Activated Date Inactivated Comments 08/26/2018 4:53 PM 08/28/2018 1:03 AM Care Teams Family Living Educator Relationship Specialty Start Date End Date Nikkie Gordon MD [address] [place] [address] PCP - General Family Medicine 11/06/21 Nikkie Gordon MD [address] [place] [address] PCP - [facility] 10/27/23 Tyson Bales MD [address] [place] [address] Cardiovascular Disease 11/06/21
--- OUTSIDE RECORDS SUMMARY | 2024-06-24 01:52 | XMS_ITS | Encounter Summary ---
Author Organization [facility] Address [address] [place] [address] Phone Care Team Providers Care Bariatric Program Coordinator Name Role Phone Nikkie Gordon MD Primary Care Provider [phone] Encounter Details Date Type Department Care Team ([facility] st Contact Info) Description 07/16/2019 Orders Only [facility]. [address] [place] [address] Trisha Bustillos MA [address] [place] [address] Chronic kidney disease, stage 3 (moderate) ([facility]) Social History Tobacco Use Types Packs/Day Years [...] (moderate) documented in this encounter Care Teams Bariatric Program Coordinator Relationship Specialty Start Date End Date Nikkie Gordon MD [address] [place] [address] PCP - General 01/24/20 documented as of this encounter
--- OUTSIDE RECORDS SUMMARY | 2024-06-24 01:53 | XMS_ITS | Referral Summary ---
Author Organization [facility] Medical Office Building [address] Address [address] [place] [address] Care Team Providers Care Sales Development Specialist Name Role Phone Nikkie Gordon MD Primary Care Provider [phone] Nikkie Gordon MD Unavailable [phone] Susan Jones MD Unavailable [phone] Kristian Ram MD Unavailable [phone] Chelo Herzog RN Unavailable Davidson Martinez MD Unavailable [phone] Tyson Bales MD Unavailable Kristian Ram MD Unavailable [phone] Anna Clarke MD Unavailable [phone] Encounters Date Type Department Care Team Description 06/15/2024 Orders Only [facility] Nephrology [address] [facility] Medicine 5th [place] [address] [place] [id number] Bruce Justice MD 05/27/2024 Telephone [facility] Urology [facility] Office Building [address] [place] [address] Suha Marks LPN 05/26/2024 Telephone [facility] Urology [address] [facility] Office Building [address] [place] [address] Suha Marks LPN 05/24/2024 5:50 PM PLATE MOLDER Anesthesia Event [facility] [address] [place] [address] Sloan Osborn MD Heuvelman, Katherine Marie, NP 05/11/2024 Orders Only [facility] Nephrology [address] [facility] Advanced Medicine 5th [place] [address] [place] [address] Bruce Justice MD 04/08/2024 Orders Only [facility] Nephrology [address] [facility] 5th [place] [address] [place] [address] Bruce Justice MD 04/05/2024 Orders Only [facility] Urology [address] [facility] Medical Office Building [address] [place] [address] Timi Hernandez MD Obstruction of right ureter (Primary Dx) 04/02/2024 Telephone [facility] [address] [facility] [phone] [place] [address] Chelo Herzog RN from Last 3 Months Allergies Active Allergy Reactions Criticality Noted Date [...] - Trend Sepsis due to undetermined organism ([facility]) Shortness of breath 04/23/2023 Hyperkalemia 04/21/2023 Gross hematuria 03/14/2023 Dialysis patient 03/02/2023 Morbid obesity 03/01/2023 Assessment & Plan (03/02/2023 12:00 PM PLATE MOLDER): Body mass index is 34.15 kg/m . - discussed risks of obesity and association with chronic medical problems including HTN, DM, and NEREYDA - advised patient on importance of maintaining a diet and exercise regimen including cardiovascular and weight-bearing exercises - nutrition consultation Physical deconditioning 06/01/2021 Assessment & Plan (06/07/2021 2:29 PM PLATE MOLDER): Multifactorial but mostly driven by her neuropathy and malnutrition - PT/OT recommending SNF. Pt not amenable. - Home PT/OT with 24 hr supervision. States son can provide supervision. Assessment & Plan (06/06/2021 2:58 PM PLATE MOLDER): Multifactorial but mostly driven by her neuropathy -PT/OT recommending SNF. Pt not amenable. Assessment & Plan (06/05/2021 7:10 PM PLATE MOLDER): Multifactorial but mostly driven by her neuropathy -PT/OT recommending SNF, she is considering but may still elect to discharge home Assessment & Plan (06/04/2021 9:50 AM PLATE MOLDER): Multifactorial but mostly driven by her neuropathy -PT/OT recommending SNF, she is considering but may still elect to discharge home Assessment & Plan (06/03/2021 10:29 AM PLATE MOLDER): Multifactorial but mostly driven by her neuropathy -PT/OT recommending SNF, she is considering but may still elect to discharge home Assessment & Plan (06/02/2021 12:57 PM PLATE MOLDER): Multifactorial but mostly driven by her neuropathy -PT/OT recommending SNF, she is considering but may still elect to discharge home Assessment & Plan (06/01/2021 12:38 PM PLATE MOLDER): Multifactorial but mostly driven by her neuropathy -PT/OT recommending SNF, she is considering but may still elect to discharge home Pyelonephritis of transplanted kidney vs UTI 06/2021 Assessment & Plan (06/07/2021 2:25 PM PLATE MOLDER): Spiked temperature of 38.2 on 05/30 once [...] collection Assessment & Plan (06/06/2021 2:50 PM PLATE MOLDER): Spiked temperature of 38.2 on 05/30 once [...] ) Assessment & Plan (06/05/2021 7:14 PM PLATE MOLDER): Spiked temperature of 38.2 on 05/30 once [...] duration. Assessment & Plan (06/04/2021 9:51 AM PLATE MOLDER): Spiked temperature of 38.2 on 05/30 once [...] sample Assessment & Plan (06/03/2021 10:33 AM PLATE MOLDER): Spiked temperature of 38.2 on 05/30 once [...] cultures Assessment & Plan (06/02/2021 12:53 PM PLATE MOLDER): Spiked temperature of 38.2 on 05/30 once [...] resulting Assessment & Plan (06/01/2021 12:34 PM PLATE MOLDER): Spiked temperature of 38.2 on 05/30 once [...] cultures Assessment & Plan (05/31/2021 8:40 AM PLATE MOLDER): Spiked temperature overnight of 38.2 once scheduled [...] 05/28/2021 Assessment & Plan (06/06/2021 2:58 PM PLATE MOLDER): Poor appetite, encourage protein supplementations. Nutrition consult Assessment & Plan (06/05/2021 7:16 PM PLATE MOLDER): Poor appetite, encourage protein supplementations. Nutrition consult Assessment & Plan (06/04/2021 9:52 AM PLATE MOLDER): Poor appetite, encourage protein supplementations. Nutrition consult Assessment & Plan (06/03/2021 10:29 AM PLATE MOLDER): Poor appetite, encourage protein supplementations. Nutrition consult Assessment & Plan (06/02/2021 12:55 PM PLATE MOLDER): Poor appetite, encourage protein supplementations. Nutrition consult Assessment & Plan (06/01/2021 12:36 PM PLATE MOLDER): Poor appetite, encourage protein supplementations. Nutrition consult Assessment & Plan (05/31/2021 11:07 AM PLATE MOLDER): Poor appetite, encourage protein supplementations. Nutrition consult Assessment & Plan (05/30/2021 10:51 AM PLATE MOLDER): Poor appetite, encourage protein supplementations. Nutrition consult Assessment & Plan (05/29/2021 1:35 PM PLATE MOLDER): Poor appetite, encourage protein supplementations. Nutrition consult Leg pain, bilateral 05/26/2021 Assessment & Plan (06/07/2021 2:27 PM PLATE MOLDER): According to the patient, this began with [...] amenable. Assessment & Plan (06/06/2021 2:54 PM PLATE MOLDER): According to the patient, this began with [...] amenable. Assessment & Plan (06/05/2021 7:17 PM PLATE MOLDER): According to the patient, this began with [...] DVT Assessment & Plan (06/04/2021 9:49 AM PLATE MOLDER): According to the patient, this began with [...] DVT Assessment & Plan (06/03/2021 10:29 AM PLATE MOLDER): According to the patient, this began with [...] DVT Assessment & Plan (06/02/2021 1:01 PM PLATE MOLDER): According to the patient, this began with [...] DVT Assessment & Plan (06/01/2021 12:38 PM PLATE MOLDER): According to the patient, this began with [...] DVT Assessment & Plan (05/31/2021 11:07 AM PLATE MOLDER): According to the patient, this began with [...] DVT Assessment & Plan (05/30/2021 10:50 AM PLATE MOLDER): According to the patient, this began with [...] DVT Assessment & Plan (05/29/2021 1:33 PM PLATE MOLDER): According to the patient, this began with [...] DVT Assessment & Plan (05/28/2021 10:52 AM PLATE MOLDER): According to the patient, this began with [...] sciatica Assessment & Plan (05/27/2021 9:49 AM PLATE MOLDER): According to the patient, this began with swelling after her recent discharge from the hospital after Medications were changed (diuretics). Tramadol is effective for her. Will start with tramadol 25 mg TID prn. Monitor edema and sxs. Pt walks with walker, PT/OT evaluations Dopplers to r/o DVT s/p COVID Assessment & Plan (05/26/2021 5:26 PM PLATE MOLDER): According to the patient, this began with swelling after her recent discharge from the hospital after Medications were changed (diuretics). Tramadol is effective for her. Will start with tramadol 25 mg TID prn. Monitor edema and sxs. Pt walks with walker, PT/OT evaluations Pneumonia due to COVID-19 virus 05/10/2021 Assessment & Plan (05/15/2021 2:07 PM PLATE MOLDER): Symptom onset 05/02/21, positive test 05/09 at OSH (see care everywhere for confirmation) Cont O2, wean as able Cont decadron (d#1=05/10) Remdesivir continued w renal txp's blessing, s/p 5 days VTE ppx with SQ heparin Assessment & Plan (05/14/2021 3:22 PM PLATE MOLDER): Symptom onset 05/02/21, positive test 05/09 at OSH (see care everywhere for confirmation) Cont O2, wean as able Cont decadron (d#1=05/10) Remdesivir continued w renal txp's blessing, d#5 today VTE ppx with SQ heparin Assessment & Plan (05/13/2021 11:08 AM PLATE MOLDER): Symptom onset 05/02/21, positive test 05/09 at OSH (see care everywhere for confirmation) Cont O2, wean as able Cont decadron (d#1=05/10) Remdesivir continued w renal txp's blessing, d#4 today VTE ppx with SQ heparin Assessment & Plan (05/12/2021 12:01 PM PLATE MOLDER): Symptom onset 05/02/21, positive test 05/09 at OSH (see care everywhere for confirmation) Cont O2, wean as able Cont decadron (d#1=05/10) Remdesivir continued w renal txp's blessing, d#3 today VTE ppx with SQ heparin Assessment & Plan (05/11/2021 1:29 PM PLATE MOLDER): Onset of symptoms ~05/02/21 with worsening dyspnea, fatigue and progressive symptoms prompting presentation. Now on 5L supplemental oxygen. Tested positive for COVID 05/09/21 -dexamethasone 6mg daily (05/10/20- -discussed remdesivir with renal transplant, started 05/10-- closely monitoring liver enzymes and for bradycardia and seizures -wean supplemental O2 as able Well woman exam 04/04/2021 Assessment & Plan (04/04/2021 12:24 PM PLATE MOLDER): Pap done secondary to last one being remote and she is immuno-supressed after her transplant. RTO 12m. I will send the results to the portal. If she has not heard in a week, to call the office. Breast swelling 04/04/2021 Assessment & Plan (04/04/2021 3:20 PM PLATE MOLDER): She is s/p bx. I will look [...] 04/04/2021 Assessment & Plan (04/04/2021 3:20 PM PLATE MOLDER): The patient was encouraged to stop smoking. Techniques for smoking cessation were discussed to the patient's level of interest. Preoperative testing 11/09/2020 Hydrohepatosis 09/22/2020 Overview (09/22/2020): Added automatically from request for surgery [id number] Hypernatremia 08/05/2020 Assessment & Plan (08/05/2020 11:08 AM CDT): Due to Na bicarb drip ordered for correction of metabolic acidosis. - discontinue bicarb drip - will likely resolve, no need for further testing unless otherwise indicated Hydronephrosis, right 09/21/2019 Overview (09/21/2019): Added automatically from request for surgery [id number] Other proteinuria 05/05/2019 Obstruction of right ureter 02/19/2019 Overview (02/19/2019): Added automatically from request for surgery [id number] Obesity, Class II, BMI 35-39.9 01/29/2019 Assessment & Plan (05/27/2021 9:48 AM PLATE MOLDER): RD consult while here for diet education Pt has low appetite, not eating much Supplements ordered Assessment & Plan (05/26/2021 5:17 PM PLATE MOLDER): RD consult while here for diet education Hydronephrosis 12/11/2018 Overview (12/11/2018): Added automatically from request for surgery [id number] Uterine fibroid 12/02/2018 Assessment & Plan (12/05/2018 [...] 11/30/2018 Assessment & Plan (05/28/2021 10:50 AM PLATE MOLDER): Continue iron supplements Assessment & Plan (05/27/2021 9:47 AM PLATE MOLDER): Continue iron supplements Assessment & Plan (05/26/2021 5:18 PM PLATE MOLDER): Continue iron supplements Assessment & Plan (12/05/2018 [...] (11/27/2018): Added automatically from request for surgery [id number] Assessment & Plan (12/31/2023 9:55 AM CDT): [...] electives. Assessment & Plan (06/07/2021 2:28 PM PLATE MOLDER): History of ureteral obstruction from known fibroid and having ureteral exchanges every 3 months with urology (next scheduled on 06/06). - Urethral stent exchanged 06/05. - Follow up with urology outpatient Assessment & Plan (06/06/2021 2:53 PM PLATE MOLDER): History of ureteral obstruction from known fibroid and having ureteral exchanges every 3 months with urology (next scheduled on 06/06). - Urethral stent exchanged 06/05. Assessment & Plan (06/05/2021 7:15 PM PLATE MOLDER): History of ureteral obstruction from known fibroid and having ureteral exchanges every 3 months with urology (next scheduled on 06/06). - Urethral stent exchanged 06/05. Assessment & Plan (06/04/2021 9:47 AM PLATE MOLDER): History of ureteral obstruction from known fibroid and having ureteral exchanges every 3 months with urology (next scheduled on 06/06). -Discussed with urology here as her exchange is actually scheduled for [facility] on Fri and they are going to try and fit her on the OR schedule here -Will need to be NPO on Friday night Assessment & Plan (06/03/2021 10:28 AM PLATE MOLDER): History of ureteral obstruction from known fibroid and having ureteral exchanges every 3 months with urology (next scheduled on 06/06). Assessment & Plan (06/02/2021 12:53 PM PLATE MOLDER): History of ureteral obstruction from known fibroid and having ureteral exchanges every 3 months with urology (next scheduled on 06/06). Assessment & Plan (06/01/2021 12:35 PM PLATE MOLDER): History of ureteral obstruction from known fibroid and having ureteral exchanges every 3 months with urology (next scheduled on 06/06). Assessment & Plan (05/31/2021 11:06 AM PLATE MOLDER): History of ureteral obstruction from known fibroid and having ureteral exchanges every 3 months with urology (next scheduled on 06/06). Assessment & Plan (05/30/2021 10:48 AM PLATE MOLDER): History of ureteral obstruction from known fibroid and having ureteral exchanges every 3 months with urology (next scheduled on 06/06). Assessment & Plan (05/29/2021 1:31 PM PLATE MOLDER): History of ureteral obstruction from known fibroid and having ureteral exchanges every 3 months with urology (next scheduled on 06/06). Assessment & Plan (05/28/2021 10:50 AM PLATE MOLDER): ureteral obstruction from known fibroid and having ureteral exchanges every 3 months with urology (next scheduled on 06/06). Assessment & Plan (05/27/2021 9:47 AM PLATE MOLDER): ureteral obstruction from known fibroid and having ureteral exchanges every 3 months with urology (next scheduled on 06/06). Assessment & Plan (05/26/2021 5:16 PM PLATE MOLDER): ureteral obstruction from known fibroid and having [...] not think this is the case. - Outboard System Operator consulted for uterine fibroid - MRI Pelvis W/O contrast - Management of stent per urology. Assessment & Plan (11/29/2018 12:15 PM CDT): Renal U/S at OSH with hydronephrosis of transplanted kidney now s/p ureteral stent by urology 8/3. Found to have extrinsic compression of ureter from likely uterine fibroid. -Management of stent per urology. -Agree with non-emergent fixed wing aircraft crew chief consult for management of fibroids. Hyperlipidemia, unspecified 11/27/2018 Assessment & Plan (03/02/2023 12:01 PM PLATE MOLDER): Continue patient's home atorvastatin 10 mg daily Hypertension, essential 11/27/2018 Assessment & Plan (05/14/2021 3:24 PM PLATE MOLDER): Continue home amlodipine, labetalol Assessment & Plan (05/10/2021 1:21 AM PLATE MOLDER): Continue home amlodipine, labetalol Assessment & Plan [...] 11/27/2018 Assessment & Plan (06/07/2021 2:27 PM PLATE MOLDER): S/p renal transplant (2008, b/l Cr 2.7-3.4) 2/2 hypertensive nephrosclerosis - Renal Transplant with duplex 1/28 showed no NENITA but new mild hydro [...] 06/21. Assessment & Plan (06/06/2021 2:52 PM PLATE MOLDER): S/p renal transplant (2007, b/l Cr 2.7-3.4) [...] qday Assessment & Plan (06/05/2021 7:09 PM PLATE MOLDER): S/p renal transplant (2007, b/l Cr 2.7-3.4) [...] monitoring Assessment & Plan (06/04/2021 9:52 AM PLATE MOLDER): S/p renal transplant (2007, b/l Cr 2.7-3.4) [...] monitoring Assessment & Plan (06/03/2021 10:29 AM PLATE MOLDER): S/p renal transplant (2007, b/l Cr 2.7-3.4) [...] monitoring Assessment & Plan (06/02/2021 12:55 PM PLATE MOLDER): S/p renal transplant (2007, b/l Cr 2.7-3.4) [...] monitoring Assessment & Plan (06/01/2021 12:37 PM PLATE MOLDER): S/p renal transplant (2007, b/l Cr 2.7-3.4) [...] monitoring Assessment & Plan (05/31/2021 8:40 AM PLATE MOLDER): S/p renal transplant (2007, b/l Cr 2.7-3.4) [...] monitoring. Assessment & Plan (05/30/2021 10:52 AM PLATE MOLDER): S/p renal transplant (2007, b/l Cr 2.7-3.4) [...] monitoring. Assessment & Plan (05/29/2021 1:36 PM PLATE MOLDER): S/p renal transplant (2007, b/l Cr 2.7-3.4) [...] monitoring. Assessment & Plan (05/28/2021 10:53 AM PLATE MOLDER): s/p renal transplant (2007, b/l Cr 2.7-3.4) [...] following/managing Assessment & Plan (05/27/2021 9:46 AM PLATE MOLDER): s/p renal transplant (2007, b/l Cr 2.7-3.4) [...] following/managing Assessment & Plan (05/26/2021 5:11 PM PLATE MOLDER): s/p renal transplant (2007, b/l Cr 2.7-3.4) [...] following/managing Assessment & Plan (05/15/2021 2:07 PM PLATE MOLDER): ESRD 2/2 hypertensive nephrosclerosis s/p renal transplant (2007, b/l Cr 2.7- 3.4) Tacrolimus trough above goal, decreased dose 5mg bid Renal transplant service comanaging (nb home dose 9am/8pm) Home prednisone 5mg daily held while on dexamethasone Has been off myfortic (h/o bk/cmv viremia) Assessment & Plan (05/14/2021 3:22 PM PLATE MOLDER): ESRD 2/2 hypertensive nephrosclerosis s/p renal transplant (2007, b/l Cr 2.7- 3.4) Tacrolimus trough above goal, decreased dose 5mg bid Renal transplant service comanaging (nb home dose 9am/8pm) Home prednisone 5mg daily held while on dexamethasone Has been off myfortic (h/o bk/cmv viremia) Assessment & Plan (05/13/2021 11:09 AM PLATE MOLDER): ESRD 2/2 hypertensive nephrosclerosis s/p renal transplant (2007, b/l Cr 2.7- 3.4) Tacrolimus trough above goal, decreased dose 5mg bid Renal transplant service comanaging (nb home dose 9am/8pm) Home prednisone 5mg daily held while on dexamethasone Assessment & Plan (05/12/2021 12:01 PM PLATE MOLDER): ESRD 2/2 hypertensive nephrosclerosis s/p renal transplant [...] following Assessment & Plan (05/11/2021 1:16 PM PLATE MOLDER): ESRD 2/2 hypertensive nephrosclerosis s/p renal transplant [...] (12/05/2018 2:28 PM CDT): Renal transplant at [facility], followed now reportedly by Dr. Rome Ram [...] with information in Care Everywhere from her parking patroller. She has not seen Dr. Ram yet. She has had 3 no shows. - Recent Cr trends from Care Everywhere 07/25/18: 2.22 09/19/2018: 2.6 10/10/2018: 2.74 - Not on anti-metabolite due to BK virus per her transplant parking patroller prior notes - Transplant nephrology following, mgmt of immunosuppression per their team - Continue prednisone - Tac increased to 7 mg BID. Tac goal 4-7 per notes - BMP and tac trough on Friday per Transplant nephrology, pt will get at [facility] and have faxed to PCP, script provided - Discharge today. I have paged her primary parking patroller office. I have faxed the d/c summary to her PCP as well. Assessment & Plan (12/04/2018 10:32 AM CDT): Renal transplant at [facility], followed now reportedly by Dr. Rome Ram [...] with information in Care Everywhere from her parking patroller. She has not seen Dr. Ram yet. She has had 3 no shows. - Recent Cr trends from Care Everywhere 07/25/18: 2.22 09/19/2018: 2.6 10/10/2018: 2.74 - Not on anti-metabolite due to BK virus per her transplant parking patroller prior notes - Transplant nephrology following, mgmt of immunosuppression per their team - Continue prednisone - Tac increased to 7 mg BID. Tac goal 4-7 per notes - Further mgmt of MARIBELL per nephrology. Assessment & Plan (12/03/2018 10:35 AM CDT): Renal transplant at [facility], followed now reportedly by Dr. Rome Ram although his clinic stated she has not been seen there and has no showed the last 3 clinic appts. - Patient has a second chart - Ronan Moreira with information in Care Everywhere from her parking patroller. She has not seen Dr. Ram yet. [...] (12/02/2018 12:03 PM CDT): Renal transplant at [facility], followed now reportedly by Dr. Rome Ram [...] (12/01/2018 5:23 PM CDT): Renal transplant at [facility], followed now by Dr. Rome Ram. Reported baseline cr 1.3 - Transplant nephrology following, mgmt of immunosuppression per their team - Tac level in AM (low today) - Attempting to obtain records from Dr. Ram Assessment & Plan (11/30/2018 5:38 PM CDT): Renal transplant at [facility], followed now by Dr. Rome Ram. Reported baseline cr 1.3 - Transplant nephrology following, mgmt of immunosuppression per their team Acute on chronic diastolic (congestive) heart fa ilure 11/27/2018 Assessment & Plan (06/07/2021 2:28 PM PLATE MOLDER): TTE (02/2021) with EF 70%, nl RV/LV size and systolic function and moderate pericardia effusion without collapse (managed conservatively with diuresis). -Repeat TTE with EF 70%, impaired relaxation and stable moderate pericardial effusion -Continue BP control and no signs of volume overload currently Assessment & Plan (06/06/2021 2:57 PM PLATE MOLDER): TTE (02/2021) with EF 70%, nl RV/LV size and systolic function and moderate pericardia effusion without collapse (managed conservatively with diuresis). -Repeat TTE with EF 70%, impaired relaxation and stable moderate pericardial effusion -Continue BP control and no signs of volume overload currently Assessment & Plan (06/05/2021 7:15 PM PLATE MOLDER): TTE (02/2021) with EF 70%, nl RV/LV size and systolic function and moderate pericardia effusion without collapse (managed conservatively with diuresis). -Repeat TTE with EF 70%, impaired relaxation and stable moderate pericardial effusion -Continue BP control and no signs of volume overload currently Assessment & Plan (06/04/2021 9:42 AM PLATE MOLDER): TTE (02/2021) with EF 70%, nl RV/LV size and systolic function and moderate pericardia effusion without collapse (managed conservatively with diuresis). -Repeat TTE with EF 70%, impaired relaxation and stable moderate pericardial effusion -Continue BP control and no signs of volume overload currently Assessment & Plan (06/03/2021 10:27 AM PLATE MOLDER): TTE (02/2021) with EF 70%, nl RV/LV size and systolic function and moderate pericardia effusion without collapse (managed conservatively with diuresis). -Repeat TTE with EF 70%, impaired relaxation and stable moderate pericardial effusion -Continue BP control and no signs of volume overload currently Assessment & Plan (06/02/2021 12:50 PM PLATE MOLDER): TTE (02/2021) with EF 70%, nl RV/LV size and systolic function and moderate pericardia effusion without collapse (managed conservatively with diuresis). -Repeat TTE with EF 70%, impaired relaxation and stable moderate pericardial effusion -Continue BP control and no signs of volume overload currently Assessment & Plan (06/01/2021 12:32 PM PLATE MOLDER): TTE (02/2021) with EF 70%, nl RV/LV size and systolic function and moderate pericardia effusion without collapse (managed conservatively with diuresis). -Repeat TTE with EF 70%, impaired relaxation and stable moderate pericardial effusion -Continue BP control and no signs of volume overload currently Assessment & Plan (05/31/2021 11:04 AM PLATE MOLDER): TTE (02/2021) with EF 70%, nl RV/LV size and systolic function and moderate pericardia effusion without collapse (managed conservatively with diuresis). -Repeat TTE with EF 70%, impaired relaxation and stable moderate pericardial effusion -Continue BP control and no signs of volume overload currently Assessment & Plan (05/30/2021 10:47 AM PLATE MOLDER): TTE (02/2021) with EF 70%, nl RV/LV size and systolic function and moderate pericardia effusion without collapse (managed conservatively with diuresis). -Repeat TTE with EF 70%, impaired relaxation and stable moderate pericardial effusion -Continue BP control and no signs of volume overload currently Assessment & Plan (05/29/2021 1:31 PM PLATE MOLDER): TTE (02/2021) with EF 70%, nl RV/LV size and systolic function and moderate pericardia effusion without collapse (managed conservatively with diuresis). -Repeat TTE with EF 70%, impaired relaxation and stable moderate pericardial effusion -Continue BP control and no signs of volume overload currently Assessment & Plan (05/28/2021 10:49 AM PLATE MOLDER): TTE (02/2021) with EF 70%, nl RV/LV size and systolic function and moderate pericardia effusion without collapse (managed conservatively with diuresis). Repeat TTE ordered Assessment & Plan (05/27/2021 9:46 AM PLATE MOLDER): TTE (02/2021) with EF 70%, nl RV/LV size and systolic function and moderate pericardia effusion without collapse (managed conservatively with diuresis). Repeat TTE ordered Assessment & Plan (05/26/2021 5:20 PM PLATE MOLDER): TTE (02/2021) with EF 70%, nl RV/LV [...] Do not think TTE or HILLARY would regional climate change analyst at this time but patient would likely [...] Do not think TTE or HILLARY would regional climate change analyst at this time but patient would likely [...] Do not think TTE or HILLARY would regional climate change analyst at this time but patient would likely benefit from cardiology input as outpatient. NEREYDA on CPAP 11/27/2018 Assessment & Plan (12/30/2023 11:11 PM CDT): Cont CPAP Assessment & Plan (06/07/2021 2:28 PM PLATE MOLDER): Pt uses home nightly CPAP Assessment & Plan (06/06/2021 2:58 PM PLATE MOLDER): Pt uses home nightly CPAP Assessment & Plan (06/05/2021 7:15 PM PLATE MOLDER): Pt uses home nightly CPAP Assessment & Plan (06/04/2021 9:49 AM PLATE MOLDER): Pt uses home nightly CPAP Assessment & Plan (06/03/2021 10:29 AM PLATE MOLDER): Pt uses home nightly CPAP Assessment & Plan (06/02/2021 12:54 PM PLATE MOLDER): Pt uses home nightly CPAP Assessment & Plan (06/01/2021 12:36 PM PLATE MOLDER): Pt uses home nightly CPAP Assessment & Plan (05/31/2021 11:07 AM PLATE MOLDER): Pt uses home nightly CPAP Assessment & Plan (05/30/2021 10:50 AM PLATE MOLDER): Pt uses home nightly CPAP Assessment & Plan (05/29/2021 1:34 PM PLATE MOLDER): Pt uses home nightly CPAP Assessment & Plan (05/28/2021 10:50 AM PLATE MOLDER): Pt uses home CPAP Assessment & Plan (05/27/2021 9:47 AM PLATE MOLDER): Pt uses home CPAP Assessment & Plan (05/26/2021 5:15 PM PLATE MOLDER): Pt uses home CPAP Assessment & Plan [...] HD Assessment & Plan (03/02/2023 11:59 AM PLATE MOLDER): No signs of exacerbation. Last TTE done [...] ETOH. Assessment & Plan (05/15/2021 2:07 PM PLATE MOLDER): Recent admission for pericardial effusion and volume overload. TTE with large pericardial effusion was seen by cardiology and thoracic surgery with plan for conservative management and diuresis Have not directly reimaged pericardial effusion thus far during admission Currently HDS, continue anti-hypertensives Holding Lasix as above Assessment & Plan (05/14/2021 3:23 PM PLATE MOLDER): Recent admission for pericardial effusion and volume overload. TTE with large pericardial effusion was seen by cardiology and thoracic surgery with plan for conservative management and diuresis Have not directly reimaged pericardial effusion thus far during admission Currently HDS, continue anti-hypertensives Holding Lasix as above Assessment & Plan (05/13/2021 11:09 AM PLATE MOLDER): Recent admission for pericardial effusion and volume overload. TTE with large pericardial effusion was seen by cardiology and thoracic surgery with plan for conservative management and diuresis -currently HDS, continue anti-hypertensives -holding diuretics as elsewhere Assessment & Plan (05/12/2021 12:01 PM PLATE MOLDER): Recent admission for pericardial effusion and volume overload. TTE with large pericardial effusion was seen by cardiology and thoracic surgery with plan for conservative management and diuresis -currently HDS, continue anti-hypertensives -holding diuretics as elsewhere Assessment & Plan (05/11/2021 1:14 PM PLATE MOLDER): Recent admission for pericardial effusion and volume [...] PM CDT): Patient's s/p DDKT at the [facility] in 2007. Of note patient has also been followed at [place], but most recently continues to follow her care at [facility] since 2015. -Cr somewhat improved with thomas catheter placement. Urology c/s; per their recommendations, d/c and attempt void trial. -Patient diuresed with 40 Lasix d/t volume overload, SOB; UOP 3.6L -BK pending, CMV and HLA negative -Thought to be d/t new diagnosis of heart failure Assessment & Plan (10/26/2018 6:35 PM CDT): Patient's s/p DDKT at the [facility] in 2007. Of note patient has also been followed at [place], but most recently continues to follow her care at [facility] since 2015. -Patient recently admitted in 08/2018 d/t MARIBELL, baseline Cr was 1.2-1.4 until 06/2018 where it has been found to be 2.2-2.8. She was evaluated by urology who recommended IR c/s; and the patient left the hospital AMA -She re-presents to [facility] 10/25 with MARIBELL, BLE edema, and [...] 10/25/2018 Assessment & Plan (03/02/2023 11:59 AM PLATE MOLDER): Likely secondary to ESRD. Continue as planned under the ESRD - continue IV iron supplements q 2 weeks. - EPO 79768 units IV t.i.d. Friday on days not getting hemodialysis - CBC daily Assessment & Plan (06/07/2021 2:27 PM PLATE MOLDER): Hgb on admission related to anemia of [...] bleed Assessment & Plan (06/05/2021 7:09 PM PLATE MOLDER): Hgb on admission related to anemia of [...] bleed Assessment & Plan (06/04/2021 9:42 AM PLATE MOLDER): Hgb on admission related to anemia of [...] bleed Assessment & Plan (06/03/2021 10:27 AM PLATE MOLDER): Hgb on admission related to anemia of [...] bleed Assessment & Plan (06/02/2021 12:50 PM PLATE MOLDER): Hgb on admission related to anemia of [...] bleed Assessment & Plan (06/01/2021 12:32 PM PLATE MOLDER): Hgb on admission related to anemia of [...] bleed Assessment & Plan (05/31/2021 11:04 AM PLATE MOLDER): Hgb on admission related to anemia of [...] AM Assessment & Plan (05/30/2021 10:45 AM PLATE MOLDER): Hgb on admission related to anemia of CKD as well as component of HERNANDEZ. Baseline Hgb ~8 - Hgb matteo of 6.3 and s/p 1 unit PRBCs with improvement to ~7 since - Continue iron supplements - No signs/symptoms of bleeding, continue to monitor & transfuse Hgb <7 - Repeat iron panel/ferritin with AM labs Assessment & Plan (05/29/2021 1:29 PM PLATE MOLDER): Hgb on admission related to anemia of CKD as well as component of HERNANDEZ. Baseline Hgb ~8 - Hgb matteo of 6.3 and s/p 1 unit PRBCs with improvement to ~7 since - Continue iron supplements - No signs/symptoms of bleeding, continue to monitor & transfuse Hgb <7 Assessment & Plan (05/28/2021 10:50 AM PLATE MOLDER): S/p 1 unit pRBCs 05/26 Recent Labs Lab Units 05/28/21 0519 05/27/21 0433 05/26/21 1308 HEMOGLOBIN g/dL 7.7* 7.7* 7.7* Transfuse prn to keep Hgb>7 Anemia of chronic disease Hgb on admission related to anemia of CKD as well as component of HERNANDEZ. -continue iron supplements Assessment & Plan (05/27/2021 9:47 AM PLATE MOLDER): S/p 1 unit pRBCs 05/26 Recent Labs Lab Units 05/27/21 0433 05/26/21 1308 05/26/21 0415 HEMOGLOBIN g/dL 7.7* 7.7* 6.3* Transfuse prn to keep Hgb>7 Anemia of chronic disease Hgb on admission related to anemia of CKD as well as component of HERNANDEZ. -continue iron supplements Assessment & Plan (05/26/2021 5:15 PM PLATE MOLDER): S/p 1 unit pRBCs 05/26 Recent Labs Lab Units 05/26/21 1308 05/26/21 0415 HEMOGLOBIN g/dL 7.7* 6.3* Transfuse prn to keep Hgb>7 Anemia of chronic disease Hgb on admission related to anemia of CKD as well as component of HERNANDEZ. -continue iron supplements Assessment & Plan (05/14/2021 3:24 PM PLATE MOLDER): Hgb 9.2. Baseline ~8-9 related to anemia of CKD as well as component of HERNANDEZ. -continue iron supplements Assessment & Plan (05/10/2021 1:19 AM PLATE MOLDER): Hgb 9.2. 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 Plan - [...] 11:39 AM CDT): -s/p DDKT 2007 at [facility] -Immunosuppression: cont tacrolimus 7mg QAM/6mg QPM, prednisone 5. She states she has not been on CellCept or Myfortic since 2007 or 2008. - Renal transplant in agreement with d/c today - Tac trough adequate Assessment & Plan (10/27/2018 4:48 PM CDT): -s/p DDKT 2007 at [facility] -Immunosuppression: cont tacrolimus 7mg QAM/6mg QPM, prednisone 5. She states she has not been on CellCept or Myfortic since 2007 or 2008. - Check tac trough - Followed by renal transplant service Assessment & Plan (10/26/2018 2:45 PM CDT): -s/p DDKT 2007 at [facility] -Immunosuppression: cont tacrolimus 7mg QAM/6mg QPM, prednisone 5. She states she has not been on CellCept or Myfortic since 2007 or 2008. - Check tac trough - Followed by renal transplant service Assessment & Plan (10/25/2018 3:31 AM CDT): -s/p DDKT 2007 at [facility] -Immunosuppression: cont tacrolimus 7mg QAM/6mg QPM, prednisone [...] PTH: 174, 162, End stage renal disease ([facility]) Assessment & Plan (01/01/2024 9:47 AM CDT): [...] for instructions. Pre-transplant evaluation for kidney transplant Resolved Problems Problem Noted Date Diagnosed Date Resolved Date ESRD (end stage renal disease) ([facility]) 03/01/2023 04/21/2023 Assessment & Plan (03/02/2023 11:58 AM PLATE MOLDER): Pt was not able to get HD 03/01/23 due to verbal altercation at HD center. She presented to [facility] for urgent HD which she tolerated. SW on consult to help find additional facility. Per EMR Hx of Kidney transplant for ESRD in the setting of HTN 2008 preformed at [facility]. 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 She was started on hemodialysis on 08/26/2021. She had kidney Biopsy on 06/13/2020 Borderline for acute cellular rejection and No evidence of antibody-mediated rejection. Moderate Interstitial fibrosis. Patient continued on: Prednisone 5 mg daily, tacrolimus daily. She is currently being evaluated for additional kidney transplant at [facility]. Left radiocephalic AV fistula, per vascular team Fistula duplex needed in future and will probably warrant fistulogram. - Continue EPO, calcitriol, folic acid, IV iron q2 weeks, - HD today per nephrology, Friday and Friday - SW Consult to help with alternative HD arrangement, Pt would like to be seen at [facility]. - Continue tacrolimus with trough levels as needed, Prednisone 5mg daily. - Lokelma as needed for HyperK - Daily CBC, CMP, mag, phos - Kidney Imaging as needed. - Avoid nephrotoxic drugs - Nephrology following appreciate recs. - Follow up with transplant team at [facility] on discharge for continued workup for kidney transplant. Constipation 05/31/2021 03/03/2023 Assessment & Plan (03/02/2023 12:00 PM PLATE MOLDER): Patient reports chronic constipation and has not have a bowel movement since Friday. Abdominal x-ray showed mild to moderate amount of stool in colon and no obstructive bowel pattern noted. Patient has allergy to MiraLax and Dulcolax base which cause muscle pain. - s/p x2 lactulose will continue as needed to help with BM. - Dulcolax daily Assessment & Plan (06/01/2021 12:32 PM PLATE MOLDER): Now resolved, will discontinue lactulose and continue PRN meds Assessment & Plan (05/31/2021 11:05 AM PLATE MOLDER): Reports no bowel movement since 05/27 -Will start lactulose BID today (miralax allergy) and continue scheduled docusate-senna -If no BM by this evening then can use PRN suppository that's ordered History of COVID-19 05/29/2021 06/05/19 Assessment & Plan (06/04/2021 9:42 AM PLATE MOLDER): Positive on 05/10/21 during prior admission and briefly required O2 at that time, but was weaned off prior to discharge. S/p remdesivir and dexamethasone during that admit. Stable on room air this admission and now COVID recovered Assessment & Plan (06/03/2021 10:28 AM PLATE MOLDER): Positive on 05/10/21 during prior admission and briefly required O2 at that time, but was weaned off prior to discharge. S/p remdesivir and dexamethasone during that admit. Stable on room air this admission and now COVID recovered Assessment & Plan (06/02/2021 1:01 PM PLATE MOLDER): Positive on 05/10/21 during prior admission and briefly required O2 at that time, but was weaned off prior to discharge. S/p remdesivir and dexamethasone during that admit -Stable on room air this admission and now COVID recovered Assessment & Plan (06/01/2021 12:35 PM PLATE MOLDER): -Positive on 05/10/21 during prior admission and briefly required O2 at that time, but was weaned off prior to discharge -S/p remdesivir and dexamethasone during that admit -Stable on room air this admission and no further inpatient needs -Completed 20 days of isolation 05/29/21, but since she she had a fever 05/30/21 she remained on precautions - may be able to come off today Assessment & Plan (05/31/2021 11:06 AM PLATE MOLDER): -Positive on 05/10/21 during prior admission and briefly required O2 at that time, but was weaned off prior to discharge -S/p remdesivir and dexamethasone during that admit -Stable on room air this admission and no further inpatient needs -Completed 20 days of isolation 05/29/21, but since she she had a fever last night she will remain on precautions for now Assessment & Plan (05/30/2021 10:48 AM PLATE MOLDER): -Positive on 05/10/21 during prior admission and briefly required O2 at that time, but was weaned off prior to discharge -S/p remdesivir and dexamethasone during that admit -Stable on room air this admission and no further inpatient needs -Completed 20 days of isolation yesterday, but since she was on scheduled Tylenol infection prevention won't remove isolation until she has been off antipyretics for 24 hours, Tylenol has been held Acute hyperkalemia 05/26/2021 3 Assessment & Plan (05/31/2021 11:02 AM PLATE MOLDER): Now resolved, secondary to MARIBELL on CKD, K of 7.9 w/ EKG changes on admit - S/p iHD overnight 05/25- and has been off [employer] since 05/26 and making good urine - K continues to remain normal - Lokelma has been discontinued Assessment & Plan (05/30/2021 10:43 AM PLATE MOLDER): Now resolved, secondary to MARIBELL on CKD, K of 7.9 w/ EKG changes on admit - S/p iHD overnight and has been off [employer] since 05/26 and making good urine - K continues to remain normal - Lokelma was discontinued Assessment & Plan (05/29/2021 1:22 PM PLATE MOLDER): Secondary to MARIBELL on CKD, K of 7.9 w/ EKG changes in am at OSH. S/p temporization prior to transfer - S/p iHD overnight and has been off [employer] since 05/26 and making good urine - K normal at 4.6, Lokelma has been held - Will monitor closely for iHD needs. Assessment & Plan (05/28/2021 10:51 AM PLATE MOLDER): - Noted 7.9 w/ EKG changes in am at OSH. - S/p medical temporization with 6.9 upon d/c from OSH to [facility]. - K now down to 5.8 s/p temporization but overnight went upto 6.8. - S/p iHD overnight - Will monitor closely for iHD needs. - Monitor closely. Assessment & Plan (05/27/2021 9:49 AM PLATE MOLDER): - Noted 7.9 w/ EKG changes in am at OSH. - S/p medical temporization with 6.9 upon d/c from OSH to H. - K now down to 5.8 s/p temporization but overnight went upto 6.8. - S/p iHD overnight - Will monitor closely for iHD needs. - Monitor closely. Assessment & Plan (05/26/2021 5:07 PM PLATE MOLDER): - Noted 7.9 w/ EKG changes in am at OSH. - S/p medical temporization with 6.9 upon d/c from OSH to [facility]. - K now down to 5.8 s/p temporization but overnight went upto 6.8. - S/p iHD overnight. - Will monitor closely for iHD needs. - Monitor closely. Renal lesion 05/12/2021 06/03/2021 Assessment & Plan (06/02/2021 12:57 PM PLATE MOLDER): Admission UA was negative for infection and she denies any urinary tract infection symptoms; however, Renal Transplant with duplex 05/25 showed no NENITA but new mild hydro and focal heterogenous echogenic area concerning for developing abscess. Repeat US on 05/29/2021 with stable findings -Pt had no sxs of dysuria and thomas has been removed -Repeat UA from 06/01 now with possible UTI, urine culture is pending -Started empiric CTX 2 g q24 hours -If culture is positive or there is more concern for possible abscess, then may require IR consult for possible drainage/sampling Assessment & Plan (05/30/2021 10:51 AM PLATE MOLDER): Per sign-out, patient does not have complicated UTI symptoms or evidence of infection on UA. However, Renal Transplant with duplex 05/25 showed no NENITA but new mild hydro and focal heterogenous echogenic area concerning for developing abscess with repeat US on 05/29/2021 with stable findings -Pt had no sxs of dysuria; renal tx team has low suspicion for UTI -Urine is clear/light 05/27 -Can consider repeating UA Assessment & Plan (05/29/2021 1:34 PM PLATE MOLDER): Per sign-out, patient does not have complicated UTI symptoms or evidence of infection on UA. However, Renal Transplant with duplex 05/25 showed no NENITA but new mild hydro and focal heterogenous echogenic area concerning for developing abscess. Pt had no sxs of dysuria; renal tx team has low suspicion for UTI Urine is clear/light 05/27 Assessment & Plan (05/28/2021 10:49 AM PLATE MOLDER): Per sign-out, patient does not have complicated UTI symptoms or evidence of infection on UA. However, Renal Transplant with duplex 05/25 showed no NENITA but new mild hydro and focal heterogenous echogenic area concerning for developing abscess. Pt had no sxs of dysuria; renal tx team has low suspicion for UTI Urine is clear/light 05/27 Assessment & Plan (05/27/2021 9:47 AM PLATE MOLDER): Per sign-out, patient does not have complicated UTI symptoms or evidence of infection on UA. However, Renal Transplant with duplex 05/25 showed no NENITA but new mild hydro and focal heterogenous echogenic area concerning for developing abscess. Pt had no sxs of dysuria; renal tx team has low suspicion for UTI Urine is clear/light 05/27 Assessment & Plan (05/26/2021 5:23 PM PLATE MOLDER): Per sign-out, patient does not have complicated UTI symptoms or evidence of infection on UA. However, Renal Transplant with duplex 05/25 showed no NENITA but new mild hydro and focal heterogenous echogenic area concerning for developing abscess. No Urine culture found this admission. Will order. Assessment & Plan (05/14/2021 3:22 PM PLATE MOLDER): Pyuria at osh, no culture data available S/p empiric rx with ceftriaxone out of abundance of caution, finished Assessment & Plan (05/13/2021 11:09 AM PLATE MOLDER): Pyuria at osh, no culture data available On empiric rx with ceftriaxone Culture here no growth but has been on abx Plan to finish course of therapy, abx d#4 today Assessment & Plan (05/12/2021 12:04 PM PLATE MOLDER): Pyuria at osh, no culture data available On empiric rx with ceftriaxone Culture here no growth but has been on abx Plan to finish course of therapy, abx d#3 today Pericardial effusion 02/28/2021 022 Assessment & Plan (06/04/2021 9:50 AM PLATE MOLDER): TTE (02/2021) with EF 70%, nl RV/LV size and systolic function and moderate pericardia effusion without collapse (managed conservatively with diuresis). TSH (01/2021) wnl and immune work up unrevealing. Previously on Lasix 80 mg BID, discharged on Lasix 20 mg daily. On home amlodipine and labetolol. - Hold Lasix, restarted labetalol & Amlodipine - Repeat TTE this admit with stable findings and no evidence of hemodynamic compromise Assessment & Plan (06/01/2021 12:36 PM PLATE MOLDER): TTE (02/2021) with EF 70%, nl RV/LV size and systolic function and moderate pericardia effusion without collapse (managed conservatively with diuresis). TSH (01/2021) wnl and immune work up unrevealing. Previously on Lasix 80 mg BID, discharged on Lasix 20 mg daily. Appears volume down. On home amlodipine and labetolol. - Hold Lasix, restarted labetalol & Amlodipine - Repeat TTE this admit with stable findings and no evidence of hemodynamic compromise Assessment & Plan (05/31/2021 11:07 AM PLATE MOLDER): TTE (02/2021) with EF 70%, nl RV/LV size and systolic function and moderate pericardia effusion without collapse (managed conservatively with diuresis). TSH (01/2021) wnl and immune work up unrevealing. Previously on Lasix 80 mg BID, discharged on Lasix 20 mg daily. Appears volume down. On home amlodipine and labetolol. - Hold Lasix, restarted labetalol & Amlodipine - Repeat TTE this admit with stable findings and no evidence of hemodynamic compromise Assessment & Plan (05/30/2021 10:51 AM PLATE MOLDER): TTE (02/2021) with EF 70%, nl RV/LV size and systolic function and moderate pericardia effusion without collapse (managed conservatively with diuresis). TSH (01/2021) wnl and immune work up unrevealing. Previously on Lasix 80 mg BID, discharged on Lasix 20 mg daily. Appears volume down. On home amlodipine and labetolol. - Hold Lasix and labetolol, restarted Amlodipine - Repeat TTE this admit with stable findings and no evidence of hemodynamic compromise Assessment & Plan (05/29/2021 1:37 PM PLATE MOLDER): TTE (02/2021) with EF 70%, nl RV/LV size and systolic function and moderate pericardia effusion without collapse (managed conservatively with diuresis). TSH (01/2021) wnl and immune work up unrevealing. Previously on Lasix 80 mg BID, discharged on Lasix 20 mg daily. Appears volume down. On home amlodipine and labetolol. - Hold Lasix, amlodipine and labetolol - Repeat TTE this admit with stable findings and no evidence of hemodynamic compromise Assessment & Plan (05/28/2021 10:49 AM PLATE MOLDER): TTE (02/2021) with EF 70%, nl RV/LV size and systolic function and moderate pericardia effusion without collapse (managed conservatively with diuresis). TSH (01/2021) wnl and immune work up unrevealing. Previously on Lasix 80 mg BID, discharged on Lasix 20 mg daily. Appears volume down. On home amlodipine and labetolol. - Hold Lasix, amlodipine and labetolol - Repeat TTE ordered Assessment & Plan (05/27/2021 9:48 AM PLATE MOLDER): TTE (02/2021) with EF 70%, nl RV/LV size and systolic function and moderate pericardia effusion without collapse (managed conservatively with diuresis). TSH (01/2021) wnl and immune work up unrevealing. Previously on Lasix 80 mg BID, discharged on Lasix 20 mg daily. Appears volume down. On home amlodipine and labetolol. - Hold Lasix, amlodipine and labetolol - Repeat TTE ordered Assessment & Plan (05/26/2021 5:19 PM PLATE MOLDER): TTE (02/2021) with EF 70%, nl RV/LV size and systolic function and moderate pericardia effusion without collapse (managed conservatively with diuresis). TSH (01/2021) wnl and immune work up unrevealing. Previously on Lasix 80 mg BID, discharged on Lasix 20 mg daily. Appears volume down. On home amlodipine and labetolol. - Hold Lasix, amlodipine and labetolol - Repeat TTE Assessment & Plan (02/28/2021 11:02 AM CDT): Given repeat echocardiogram yesterday which did not show signs of hemodynamic compromise, and patient's hemodynamic stability, we do not recommend pericardial window, and would continue current conservative medical management.Please call us back if there are changes in her clinical status. Acute kidney injury 08/03/2020 08/04/19 21 Volume overload 11/28/2018 12/01/2018 Assessment & Plan (12/01/2018 5:25 PM CDT): Suspect multifactorial in setting of renal failure as well as known diastolic dysfunction and valvular disease, now resolving with auto-diuresis. -Once post-obstructive diuresis has resolved, can d/c IVF and restart a baseline dose of diuretics. Assessment & Plan (11/30/2018 5:31 PM CDT): Suspect multifactorial in setting of renal failure as well as known diastolic dysfunction and valvular disease, now resolving with auto-diuresis. -Once post-obstructive diuresis has resolved, can d/c IVF and restart a baseline dose of diuretics. Assessment & Plan (11/29/2018 12:14 PM CDT): Suspect multifactorial in setting of renal failure as well as known diastolic dysfunction and valvular disease. -S/p Lasix 60IV x 2 doses prior to stent placement. -Appears dry on exam today (does continue to have JVD but suspect that is related to known mod TR). -As above, gentle IVF to keep up with post-obstructive diuresis. -Once post-obstructive diuresis has resolved, can d/c IVF and restart a baseline dose of diuretics. Assessment & Plan (11/28/2018 1:15 PM CDT): Likely multifactorial with post-obstructive MARIBELL of transplant kidney with decreased urine output and heart failure exacerbation. Please see plan under each problem. ESRD (end stage renal disease) ([facility]) 11/27/2018 04/21/2023 Acute exacerbation of CHF (c ongestive heart failure) ([facility]) 11/27/2018 12/02/2018 Assessment & Plan (11/28/2018 1:14 PM CDT): Reported history of heart failure, with EF unknown. Bedside echo with nml EF but showed moderate pericardial effusion. Requiring 2L O2. --s/p 60 mg IV Lasix 10 PM last night and second dose at 8 AM today --repeat BMP this afternoon --further recommendations tomorrow about plan for diuresis, monitor urine output for goal net neg 1 L today --please place on telemetry --check daily weights, strict Is and Os, low sodium and renal diet, check daily Mg/K and replete Mag >2 and K >4 --order formal transthoracic echo H/O diabetes mellitus 11/20/20182022 Acute kidney injury superimp osed on chronic kidney disease ([facility]) 10/25/2018 06/07/2021 Assessment & Plan (06/07/2021 2:26 PM PLATE MOLDER): History of ESRD 2/2 hypertensive nephrosclerosis s/p renal transplant (2007, b/l Cr 2.7-3.4) who presented from OSH with MARIBELL & hyperkalemia. Cr and K ~7 on OSH ED arrival. Recently admitted with MARIBELL and worked up with renal US Doppler showing no transplant renal artery stenosis, negative BK and CMV virus. 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 Also has ureteral obstruction from known fibroid and having ureteral exchanges every 3 months with urology (next scheduled on 06/06). Etiology this admission was prerenal and improved with gentle hydration. - Admission UA with 2+ protein and 1+ blood but no signs of infection - Renal US (05/25) Renal US doppler with no renal artery stenosis and new mild hydronephrosis with urothelial thickening. Focal heterogeneous echogenic area within the midportion of the renal transplant parenchyma suspicious for developing abscess. - Repeat renal US 05/29/21 with stable findings - possible abscess - Now s/p bicarb gtt with normalization of acidosis - CMV & BK virus negative - Renal transplant is following, now s/p HD on 05/25-05/26, no further sessions since and MARIBELL improved & hyperkalemia resolved - Cr continues to downtrend Assessment & Plan (06/06/2021 2:51 PM PLATE MOLDER): History of ESRD 2/2 hypertensive nephrosclerosis s/p renal transplant (2007, b/l Cr 2.7-3.4) who presented from OSH with MARIBELL & hyperkalemia. Cr and K ~7 on OSH ED arrival. Recently admitted with MARIBELL and worked up with renal US Doppler showing no transplant renal artery stenosis, negative BK and CMV virus. 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 Also has ureteral obstruction from known fibroid and having ureteral exchanges every 3 months with urology (next scheduled on 06/06). Etiology this admission was prerenal and improved with gentle hydration. - Admission UA with 2+ protein and 1+ blood but no signs of infection - Renal US (05/25) Renal US doppler with no renal artery stenosis and new mild hydronephrosis with urothelial thickening. Focal heterogeneous echogenic area within the midportion of the renal transplant parenchyma suspicious for developing abscess. - Repeat renal US 05/29/21 with stable findings - possible abscess - Now s/p bicarb gtt with normalization of acidosis - CMV & BK virus negative - Renal transplant is following, now s/p HD on 05/25-05/26, no further sessions since and MARIBELL & hyperkalemia have resolved - Continue to monitor urine output and daily BMP - Cr continues to remain above her prior baseline, but has remained 3.7-4.1 for the last week so this maybe her new baseline Assessment & Plan (06/05/2021 7:08 PM PLATE MOLDER): History of ESRD 2/2 hypertensive nephrosclerosis s/p renal transplant (2007, b/l Cr 2.7-3.4) who presented from OSH with MARIBELL & hyperkalemia. Cr and K ~7 on OSH ED arrival. Recently admitted with MARIBELL and worked up with renal US Doppler showing no transplant renal artery stenosis, negative BK and CMV virus. 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 Also has ureteral obstruction from known fibroid and having ureteral exchanges every 3 months with urology (next scheduled on 06/06). Etiology this admission was prerenal and improved with gentle hydration. - Admission UA with 2+ protein and 1+ blood but no signs of infection - Renal US (05/25) Renal US doppler with no renal artery stenosis and new mild hydronephrosis with urothelial thickening. Focal heterogeneous echogenic area within the midportion of the renal transplant parenchyma suspicious for developing abscess. - Repeat renal US 05/29/21 with stable findings - possible abscess - Now s/p bicarb gtt with normalization of acidosis - CMV & BK virus negative - Renal transplant is following, now s/p HD on 05/25-05/26, no further sessions since and MARIBELL & hyperkalemia have resolved - Continue to monitor urine output and daily BMP - Cr continues to remain above her prior baseline, but has remained 3.7-4.1 for the last week so this maybe her new baseline Assessment & Plan (06/04/2021 9:42 AM PLATE MOLDER): History of ESRD 2/2 hypertensive nephrosclerosis s/p renal transplant (2007, b/l Cr 2.7-3.4) who presented from OSH with MARIBELL & hyperkalemia. Cr and K ~7 on OSH ED arrival. Recently admitted with MARIBELL and worked up with renal US Doppler showing no transplant renal artery stenosis, negative BK and CMV virus. 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 Also has ureteral obstruction from known fibroid and having ureteral exchanges every 3 months with urology (next scheduled on 06/06). Etiology this admission was prerenal and improved with gentle hydration. - Admission UA with 2+ protein and 1+ blood but no signs of infection - Renal US (05/25) Renal US doppler with no renal artery stenosis and new mild hydronephrosis with urothelial thickening. Focal heterogeneous echogenic area within the midportion of the renal transplant parenchyma suspicious for developing abscess. - Repeat renal US 05/29/21 with stable findings - possible abscess - Now s/p bicarb gtt with normalization of acidosis - CMV & BK virus negative - Renal transplant is following, now s/p HD on 05/25-05/26, no further sessions since and MARIBELL & hyperkalemia have resolved - Continue to monitor urine output and daily BMP - Cr continues to remain above her prior baseline, but has remained 3.7-4.1 for the last week so this maybe her new baseline Assessment & Plan (06/03/2021 10:26 AM PLATE MOLDER): History of ESRD 2/2 hypertensive nephrosclerosis s/p renal transplant (2007, b/l Cr 2.7-3.4) who presented from OSH with MARIBELL & hyperkalemia. Cr and K ~7 on OSH ED arrival. Unclear etiology. Recently admitted with MARIBELL and worked up with renal US Doppler showing no transplant renal artery stenosis, negative BK and CMV virus. 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 Also has ureteral obstruction from known fibroid and having ureteral exchanges every 3 months with urology (next scheduled on 06/06). - Admission UA with 2+ protein and 1+ blood but no signs of infection - Renal US (05/25) Renal US doppler with no renal artery stenosis and new mild hydronephrosis with urothelial thickening. Focal heterogeneous echogenic area within the midportion of the renal transplant parenchyma suspicious for developing abscess. - Repeat renal US 05/29/21 with stable findings - possible abscess - Now s/p bicarb gtt with normalization of acidosis - CMV & BK virus negative - Renal transplant is following, now s/p HD on 05/25-05/26, no further sessions since and MARIBELL & hyperkalemia have resolved - Continue to monitor urine output and daily BMP - Cr continues to remain above her prior baseline, but has remained 3.7-4.1 for the last week so this maybe her new baseline Assessment & Plan (06/02/2021 1:00 PM PLATE MOLDER): History of ESRD 2/2 hypertensive nephrosclerosis s/p renal transplant (2007, b/l Cr 2.7-3.4) who presented from OSH with MARIBELL & hyperkalemia. Cr and K ~7 on OSH ED arrival. Unclear etiology. Recently admitted with MARIBELL and worked up with renal US Doppler showing no transplant renal artery stenosis, negative BK and CMV virus. 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 Also has ureteral obstruction from known fibroid and having ureteral exchanges every 3 months with urology (next scheduled on 06/06). - Admission UA with 2+ protein and 1+ blood but no signs of infection - Renal US (05/25) Renal US doppler with no renal artery stenosis and new mild hydronephrosis with urothelial thickening. Focal heterogeneous echogenic area within the midportion of the renal transplant parenchyma suspicious for developing abscess. - Repeat renal US 05/29/21 with stable findings - possible abscess - Now s/p bicarb gtt with normalization of acidosis - CMV & BK virus negative - Renal transplant is following, now s/p HD on 05/25-05/26, no further sessions since and MARIBELL & hyperkalemia have resolved - Continue to monitor urine output and daily BMP - Slight rise in her Cr today, but still within 3-4 range - discussed with renal transplant and will continue to monitor for now Assessment & Plan (06/01/2021 12:30 PM PLATE MOLDER): History of ESRD 2/2 hypertensive nephrosclerosis s/p renal transplant (2007, b/l Cr 2.7-3.4) who presented from OSH with MARIBELL & hyperkalemia. Cr and K ~7 on OSH ED arrival. Unclear etiology. Recently admitted with MARIBELL and worked up with renal US Doppler showing no transplant renal artery stenosis, negative BK and CMV virus. 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 Also has ureteral obstruction from known fibroid and having ureteral exchanges every 3 months with urology (next scheduled on 06/06). - UA with 2+ protein and 1+ blood but no signs of infection - Renal US (05/25) Renal US doppler with no renal artery stenosis and new mild hydronephrosis with urothelial thickening. Focal heterogeneous echogenic area within the midportion of the renal transplant parenchyma suspicious for developing abscess. - Repeat renal US 05/29/21 with stable findings - possible abscess - Now s/p bicarb gtt with normalization of acidosis - CMV & BK virus negative - Renal transplant is following, now s/p HD on 05/25-05/26, no further sessions since and MARIBELL & hyperkalemia have resolved - Continue to monitor urine output, ~2.2 L yesterday - Cr is back to her baseline, will continue to monitor with daily BMP - Discontinue Thomas today Assessment & Plan (05/31/2021 11:03 AM PLATE MOLDER): History of ESRD 2/2 hypertensive nephrosclerosis s/p renal transplant (2007, b/l Cr 2.7-3.4) who presented from OSH with MARIBELL & hyperkalemia. Cr and K ~7 on OSH ED arrival. Unclear etiology. Recently admitted with MARIBELL and worked up with renal US Doppler showing no transplant renal artery stenosis, negative BK and CMV virus. 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 Also has ureteral obstruction from known fibroid and having ureteral exchanges every 3 months with urology (next scheduled on 06/06). - UA with 2+ protein and 1+ blood but no signs of infection - Renal US (05/25) Renal US doppler with no renal artery stenosis and new mild hydronephrosis with urothelial thickening. Focal heterogeneous echogenic area within the midportion of the renal transplant parenchyma suspicious for developing abscess. - Repeat renal US 05/29/21 with stable findings - possible abscess - Now s/p bicarb gtt with normalization of acidosis - CMV & BK virus negative - Renal transplant is following, now s/p HD on 05/25-05/26, no further sessions since and MARIBELL & hyperkalemia have resolved - Continue to monitor urine output, ~1.3 L yesterday - Cr is back to her baseline, will continue to monitor with daily BMP Assessment & Plan (05/30/2021 10:44 AM PLATE MOLDER): History of ESRD 2/2 hypertensive nephrosclerosis s/p renal transplant (2007, b/l Cr 2.7-3.4) who presented from OSH with MARIBELL & hyperkalemia. Cr and K ~7 on OSH ED arrival. Unclear etiology. Recently admitted with MARIBELL and worked up with renal US Doppler showing no transplant renal artery stenosis, negative BK and CMV virus. 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 Also has ureteral obstruction from known fibroid and having ureteral exchanges every 3 months with urology (next scheduled on 06/06). - UA with 2+ protein and 1+ blood but no signs of infection - Renal US (05/25) Renal US doppler with no renal artery stenosis and new mild hydronephrosis with urothelial thickening. Focal heterogeneous echogenic area within the midportion of the renal transplant parenchyma suspicious for developing abscess. - Repeat renal US 05/29/21 with stable findings - possible abscess - Now s/p bicarb gtt with normalization of acidosis - CMV & BK virus negative - Renal transplant is following, now s/p HD on 05/25-05/26, no further sessions since and MARIBELL is improving and hyperkalemia resolved - Continue to monitor urine output, ~1.5 L yesterday Assessment & Plan (05/29/2021 1:27 PM PLATE MOLDER): History of ESRD 2/2 hypertensive nephrosclerosis s/p renal transplant (2007, b/l Cr 2.7-3.4) who presented from OSH with MARIBELL & hyperkalemia. Cr and K ~7 on OSH ED arrival. Unclear etiology. Recently admitted with MARIBELL and worked up with renal US Doppler showing no transplant renal artery stenosis, negative BK and CMV virus. 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 Also has ureteral obstruction from known fibroid and having ureteral exchanges every 3 months with urology (next scheduled on 06/06) - UA with 2+ protein and 1+ blood - Renal US (05/25) Renal US doppler with no renal artery stenosis and new mild hydronephrosis with urothelial thickening. Focal heterogeneous echogenic area within the midportion of the renal transplant parenchyma suspicious for developing abscess. - Repeat renal US today with stable findings - possible abscess - Now s/p bicarb gtt with normalization of acidosis - CMV & BK virus negative - Renal transplant is following, now s/p HD on 05/25-05/26, no further sessions since and MARIBELL is improving and hyperkalemia resolved - Continue to monitor urine output, ~2.6 L yesterday Assessment & Plan (05/28/2021 10:48 AM PLATE MOLDER): 65F with history of ESRD 2/2 hypertensive nephrosclerosis s/p renal transplant (2007, b/l Cr 2.7-3.4), anemia of CKD, NEREYDA on CPAP, HFpEF transferred from OSH to [facility] for acute kidney failure and hyperkalemia. s/p renal transplant (2007, b/l Cr 2.7-3.4) 2/2 hypertensive nephrosclerosis. Presents with Cr of 6.9 -> repeat 6.2 and Na 129. Unclear etiology. Recently admitted with MARIBELL and worked up with renal US Doppler showing no transplant renal artery stenosis, negative BK and CMV virus. 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 Also has ureteral obstruction from known fibroid and having ureteral exchanges every 3 months with urology (next scheduled on 06/06). Discharged last admission on Tacro 5 BID, prednisone 5 mg daily while myfortic was held. Follows with renal transplant (last seen 04/26/2021). On bicarb 1300 TID and completed bactrim for one year. - UA with 2+ protein and 1+ blood - Renal US (05/25) Renal US doppler with no renal artery stenosis and new mild hydronephrosis with urothelial thickening. Focal heterogeneous echogenic area within the midportion of the renal transplant parenchyma suspicious for developing abscess. - Renal transplant consulted and co-managing - s/p D5W bicarb @100 ml/hr for 10 hours - Adjust tacro dose according to trough level - HD as needed (urgent HD 05/25-) - Avoid nephrotoxic drugs - Renally adjusted medications Strict I/O (2 liters UOP 05/26) - Patient does have working LUE AVF - CMV negative. - BK and DSA pending. Recent Labs Lab Units 05/28/21 0519 05/27/21 0536 05/26/21 0415 CREATININE mg/dL 3.94* 3.75* 2.62* Assessment & Plan (05/27/2021 9:45 AM PLATE MOLDER): 65F with history of ESRD 2/2 hypertensive nephrosclerosis s/p renal transplant (2007, b/l Cr 2.7-3.4), anemia of CKD, NEREYDA on CPAP, HFpEF transferred from OSH to [facility] for acute kidney failure and hyperkalemia. s/p renal transplant (2007, b/l Cr 2.7-3.4) 2/2 hypertensive nephrosclerosis. Presents with Cr of 6.9 -> repeat 6.2 and Na 129. Unclear etiology. Recently admitted with MARIBELL and worked up with renal US Doppler showing no transplant renal artery stenosis, negative BK and CMV virus. 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 Also has ureteral obstruction from known fibroid and having ureteral exchanges every 3 months with urology (next scheduled on 06/06). Discharged last admission on Tacro 5 BID, prednisone 5 mg daily while myfortic was held. Follows with renal transplant (last seen 04/26/2021). On bicarb 1300 TID and completed bactrim for one year. - UA with 2+ protein and 1+ blood - Renal US (05/25) Renal US doppler with no renal artery stenosis and new mild hydronephrosis with urothelial thickening. Focal heterogeneous echogenic area within the midportion of the renal transplant parenchyma suspicious for developing abscess. - Renal transplant consulted and co-managing - s/p D5W bicarb @100 ml/hr for 10 hours - Adjust tacro dose according to trough level - HD as needed (urgent HD 05/25-) - Avoid nephrotoxic drugs - Renally adjusted medications Strict I/O (2 liters UOP 05/26) - Patient does have working LUE AVF - CMV negative. - BK and DSA pending. Assessment & Plan (05/26/2021 5:06 PM PLATE MOLDER): 65F with history of ESRD 2/2 hypertensive nephrosclerosis s/p renal transplant (2007, b/l Cr 2.7-3.4), anemia of CKD, NEREYDA on CPAP, HFpEF transferred from OSH to [facility] for acute kidney failure and hyperkalemia. s/p renal transplant (2007, b/l Cr 2.7-3.4) 2/2 hypertensive nephrosclerosis. Presents with Cr of 6.9 -> repeat 6.2 and Na 129. Unclear etiology. Recently admitted with MARIBELL and worked up with renal US Doppler showing no transplant renal artery stenosis, negative BK and CMV virus. 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 Also has ureteral obstruction from known fibroid and having ureteral exchanges every 3 months with urology (next scheduled on 06/06). Discharged last admission on Tacro 5 BID, prednisone 5 mg daily while myfortic was held. Follows with renal transplant (last seen 04/26/2021). On bicarb 1300 TID and completed bactrim for one year. - UA with 2+ protein and 1+ blood - Renal US (05/25) Renal US doppler with no renal artery stenosis and new mild hydronephrosis with urothelial thickening. Focal heterogeneous echogenic area within the midportion of the renal transplant parenchyma suspicious for developing abscess. - Renal transplant consulted and co-managing - s/p D5W bicarb @100 ml/hr for 10 hours - Adjust tacro dose according to trough level - HD as needed (urgent HD 05/25-) - Avoid nephrotoxic drugs - Renally adjusted medications Strict I/O - Patient does have working LUE AVF - CMV negative. - BK and DSA pending. Assessment & Plan (05/15/2021 2:07 PM PLATE MOLDER): Admit creatinine 6.1, baseline 2.7-3.4 in recent months Noted 6-7 days poor intake prior to arrival, suspected prerenal/atn etiol Some improvement thus far w fluids, holding off as concerned for vol status PO intake improving somewhat, advised taking in less juice due to loose stool and potassium CMV, BK neg Metabolic acidosis- stopped bicarb infusion, increase PO to 1300 tid Hyperkalemia- mild, increase bicarb, lay off juices Monitor response w repeat BMP in AM Discussed case with renal transplant service- agree w bicarb increase, cont tacro present dosing Assessment & Plan (05/14/2021 3:21 PM PLATE MOLDER): Admit creatinine 6.1, baseline 2.7-3.4 in recent months Noted 6-7 days poor intake prior to arrival, suspected prerenal/atn etiol Some improvement thus far w fluids, holding off as concerned for vol status PO intake improving somewhat, advised taking in less juice due to loose stool and potassium CMV, BK neg Metabolic acidosis- stopped bicarb infusion, increase PO to 1300 tid Hyperkalemia- mild, increase bicarb, lay off juices Monitor response w repeat BMP in AM Discussed case with renal transplant service- agree w bicarb increase, cont tacro present dosing Assessment & Plan (05/13/2021 11:07 AM PLATE MOLDER): Admit creatinine 6.1, baseline 2.7-3.4 in recent months Noted 6-7 days poor intake prior to arrival, suspected prerenal/atn etiol Some improvement thus far w fluids Still poor intake CMV, BK neg Metabolic acidosis worsening - increase bicarb infusion Cont oral bicarb Monitor response w repeat BMP in AM Discussed case with renal transplant service- agree w bicarb increase, decreasing tacro Assessment & Plan (05/12/2021 11:57 AM PLATE MOLDER): Admit creatinine 6.1, baseline 2.7-3.4 in recent months Noted 6-7 days poor intake prior to arrival Some improvement thus far w fluids Still poor intake CMV neg Metabolic acidosis worsening in spite of oral bicarb Plan small fluids/bicarb infusion today, cont oral bicarb Monitor response w repeat BMP in AM Assessment & Plan (05/11/2021 1:29 PM PLATE MOLDER): Baseline Cr 2.7-3.4. On admission at OSH Cr up to 6.13. Suspected pre-renal given acute illness vs covid related nephropathy -cr improved to 4.9 -renal transplant following -holding IV fluids and lasix for now -urine lytes -repeat urinalysis; empiric CTX due to UA at OSH -strict I&O, daily weights Assessment & Plan (08/05/2020 11:07 AM CDT): - patient's cr has recently ranged 2.6-2.9 but is currently 3.89 on presentation, with metabolic acidosis with bicarb 12. Etiology is thought to be due to compression of urethra from known fibroid, as US showed bladder distention after voiding. US did not show hydronephrosis, though this may not be seen early in the disease process. - renal transplant team following. Appreciate renal transplant recs. - now off of Na bicarb drip. - dc thomas with void trial today. If passes, renal transplant recommends discharge. - cont transplant rejection medications as below Assessment & Plan (08/03/2020 3:05 AM CDT): - patient's cr has recently ranged 2.6-2.9 but is currently 3.89 on presentation. Labs also notable for metabolic acidosis with bicarb 12. - awaiting renal transplant ultrasound. If hydronephrosis will consult urology for possible stent exchange. Appreciate renal transplant recs. - cont po bicarb given hypervolemia on exam - cont transplant rejection medications as below Assessment & Plan (10/28/2018 11:41 AM CDT): Cr trending down with diuresis, now 2.6, down from 3.4 on admission. Likely 2/2 acute HF exacerbation and fluid rentention. Urinary outflow obstruction may have also been contributory. Patient now urinating well without a Thomas. - Urology recommends outpatient urodynamic studies - Thomas removed and patient urinating well on her own - Continue to monitor Cr daily (trending downward) - F/u on outstanding BK viremia panel Assessment & Plan (10/27/2018 4:49 PM CDT): Cr trending downs/p Thomas catheter placement, 2.97 now, down from 3.41 at OSH. Suggestive of obstructive etiology for MARIBELL. Renal U/S on 10/25 showed mild right hydronephrosis (transplanted kidney). Further workup warranted to determine the cause of new onset of urinary outflow obstruction. - Urology recommends outpatient urodynamic studies - Thomas removed and void trial today - Continue to monitor Cr daily - F/u on outstanding BK viremia panel Assessment & Plan (10/26/2018 2:53 PM CDT): Cr trending downs/p Thomas catheter placement, 2.97 now, down from 3.41 at OSH. Suggestive of obstructive etiology for MARIBELL. Renal U/S on 10/25 showed mild right hydronephrosis (transplanted kidney). Further workup warranted to determine the cause of new onset of urinary outflow obstruction. - Consult urology to f/u on renal U/S findings to determine potential causes of urinary outflow obstruction - Continue to monitor Cr daily - F/u on outstanding BK viremia panel Assessment & Plan (10/25/2018 3:43 AM CDT): -Cr 3.41 at OSH. Prior baseline Cr 1.2 to 1.4, however has been ranging from 2.2 to 2.8 since June 2018. Ultrasound at [facility] on 08/26 showed severe hydronephrosis of the transplanted kidney for which she was admitted. No post-void residual noted and IR evaluation recommended, however she left AMA. Suspect that increasing Cr is due to obstruction/hydronephrosis likely related to a stricture/ureteral stenosis. Ddx includes rejection, CNI toxicity. Unlikely BK viremia given recent negative BK blood PCR at OSH. -Check post void residual -Renal US of transplant kidney -Check tacrolimus trough -Renal transplant c/s Hypertension 10/25/2018 04/21/2023 Assessment & Plan (03/02/2023 11:58 AM PLATE MOLDER): Blood pressure is controlled - continue amlodipine 10 mg daily, labetalol 200 mg t.i.d., Lasix 40 mg b.i.d.. Assessment & Plan (06/07/2021 2:27 PM PLATE MOLDER): - Continue home amlodipine & labetalol Assessment & Plan (06/06/2021 2:53 PM PLATE MOLDER): - Continue home amlodipine & labetalol Assessment & Plan (06/05/2021 7:09 PM PLATE MOLDER): - Continue home amlodipine & labetalol Assessment & Plan (06/04/2021 9:48 AM PLATE MOLDER): Restarted home Amlodipine & Labetalol, blood pressure within goal Assessment & Plan (06/03/2021 10:28 AM PLATE MOLDER): Restarted home Amlodipine & Labetalol, blood pressure within goal Assessment & Plan (06/02/2021 12:53 PM PLATE MOLDER): Improving BP -Restarted home Amlodipine & Labetalol Assessment & Plan (06/01/2021 12:35 PM PLATE MOLDER): Improving BP -Restarted home Amlodipine & Labetalol Assessment & Plan (05/31/2021 11:06 AM PLATE MOLDER): Improving BP -Restarted home Amlodipine yesterday and will resume home Labetalol today Assessment & Plan (05/30/2021 10:49 AM PLATE MOLDER): Currently BP at goal and has improved -Will restart home Amlodipine 10 mg qday today and continue to hold Labetolol for now Assessment & Plan (05/29/2021 1:32 PM PLATE MOLDER): Currently BP at goal -Labetolol and amlodipine both on hold due to softer pressures on admit, resume as tolerated Assessment & Plan (05/28/2021 10:50 AM PLATE MOLDER): Currently, BP near goal Labetolol and amlodipine both on hold monitor and titrate meds. BP at goal 05/27, 05/28 Assessment & Plan (05/27/2021 9:47 AM PLATE MOLDER): Currently, BP near goal Labetolol and amlodipine both on hold monitor and titrate meds. BP at goal 05/27 Assessment & Plan (05/26/2021 5:13 PM PLATE MOLDER): Currently, BP near goal Labetolol and amlodipine both on hold monitor and titrate meds. Assessment & Plan (10/27/2018 4:49 PM CDT): -Cont labetalol 400 TID, amlodipine 10 Assessment & Plan (10/27/2018 11:14 AM CDT): SBP 130-140s -Continue Norvasc 10 mg/day and Labetalol q8h Assessment & Plan (10/26/2018 6:33 PM CDT): SBP 130-140s -Continue Norvasc 10 mg/day and Labetalol q8h Assessment & Plan (10/26/2018 2:57 PM CDT): -Cont labetalol 400 TID, amlodipine 10 Assessment & Plan (10/25/2018 3:32 AM CDT): -Cont labetalol 400 TID, amlodipine 10 NEREYDA on CPAP 10/25/2018 04/21/2023 Assessment & Plan (03/02/2023 12:00 PM PLATE MOLDER): Will continue home CPAP. Assessment & Plan (05/14/2021 3:23 PM PLATE MOLDER): Continue home CPAP (though has been using O2 instead) Assessment & Plan (05/10/2021 1:21 AM PLATE MOLDER): Continue home CPAP Assessment & Plan (10/26/2018 2:44 PM CDT): -Reports using CPAP at home but states she does not want to use CPAP while in hospital. Can order CPAP if patient willing to use. Assessment & Plan (10/25/2018 3:32 AM CDT): -Reports using CPAP at home but states she does not want to use CPAP while in hospital. Can order CPAP if patient willing to use. MARIBELL (acute kidney injury) 08/26/2018 Overview (03/23/2019): TXP US in 08/27/18: Severe TXP Hydronephrosis. Assessment & Plan (12/05/2018 2:29 PM CDT): Patient with Cr 4.52 on admission, continues to improve. Reports her baseline Cr is 1.3 although has been uptrending recently - 1.7 in Apr and 2 in June ( see below ). Currently with post-ATN diuresis. Creatinine improved with 1L IVF yesterday, UPC elevated (see above) - d/c today Assessment & Plan (12/04/2018 10:32 AM CDT): Patient with Cr 4.52 on admission, continues to improve. Reports her baseline Cr is 1.3 although has been uptrending recently - 1.7 in Apr and 2 in June ( see below ). Currently with post-ATN diuresis. Creatinine improved with 1L IVF yesterday, UPC elevated (see above) - Transplant nephrology consulted Assessment & Plan (12/03/2018 10:34 AM CDT): Patient with Cr 4.52 on admission, continues to improve. Reports her baseline Cr is 1.3 although has been uptrending recently - 1.7 in Apr and 2 in June ( see below ). Currently with post-ATN diuresis. Creatinine essentially unchanged 12/03 in the setting of stopping IVF. - Transplant nephrology consulted - Restart IVF LR 100 ml/hr x 10 hrs Assessment & Plan (12/02/2018 12:01 PM CDT): Patient with Cr 4.52 on admission, continues to improve. Reports her baseline Cr is 1.3 although has been uptrending recently - 1.7 in Apr. Currently with post-ATN diuresis. - Transplant nephrology consulted - Remove thomas - Hold IVF, push PO intake. Add fluid PRN - No more than net -1 to 2 L per day Assessment & Plan (12/01/2018 5:21 PM CDT): Patient with Cr 4.52 on admission now 3.4 s/p ureteral stent placement 11/28. Reports her baseline Cr is 1.3 although has been uptrending recently - 1.7 in Apr. Currently with post-ATN diuresis. - Transplant nephrology consulted - Consider thomas removal 12/02 - No more than net -1 to 2 L per day - LR 100 ml/hr Assessment & Plan (11/30/2018 5:29 PM CDT): Patient with Cr 4.52 on admission now 3.4 s/p ureteral stent placement 11/28. Reports her baseline Cr is 1.3 although has been uptrending recently - 1.7 in Apr. Currently with post-ATN diuresis. - Transplant nephrology consulted - No more than net -1 to 2 L per day Assessment & Plan (11/29/2018 12:10 PM CDT): Patient with Cr 4.52 on admission now 4.32 s/p ureteral stent placement. Suspect that patient has had more chronic renal dysfunction given recent admission with Cr 3.5-->2.65 in the setting of ureteral compression. Now w/ increase UOP s/p stent placement by urology 11/28. Net neg 5L yesterday if PO intake is to be believed. -Discussed with renal transplant and urology service. Suspect Cr will improve post-stent but now c/f ATN given post-obstructive diuresis vs less likely rejection. -Appears dry on exam this am. Renal transplant agrees with starting gentle IVF to keep up with diuresis. Recommended NS @100cc/hr for goal net even to slightly negative (no more negative than 1-2L per day). Prefer saline to run continuous vs bolus in s/o cardiac disease as below. -Renal transplant continues to follow and is managing immunosuppression. Assessment & Plan (11/28/2018 1:16 PM CDT): Baseline creatinine unknown but on arrival was 4.52 with K 5.2 and bicarb 18. Likely postobstructive given hydronephrosis visualized on CT A/P. S/p ureteral stent placed by urology 11/28. Previous baseline in Apr 1.3-1.4 per patient but has had progressively declining kidney function. --renal transplant team on board --check random tac level, then restart home tac 7qAM/6qPM and pred 5 mg --please obtain outside hospital records for baseline creatinine --renal diet, avoid nephroxotins, renally dose meds Type 2 diabetes mellitus wit hout complication ([facility]) 09/05/2017 10/18/2022 Immunizations Immunization Administration Dates Next Due Hep [...] drink = 0.6 oz pur e alcohol) [facility] [employer]ities Answer Date Recorded In the past 12 months has e [employer], gas, oil, or water Personal [employer] threatened to shut off services in your [...] declined 01/01/2024 How often do you attend druze or restorationist serv ices? Patient declined 01/01/2024 Do you belong to any clubs o r organizations such as druze groups, unions, fraternal or athletic groups, or [...] place to sleep or slept in a longterm (including now)? No 04/23/2023 Housing Stability Vital [...] any time in the past 12 m [facility], were you homeless or living in a longterm (including now)? Patient declined 01/01/2024 Personal Safety [...] 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, GOLD [employer]IB GRINDER, ENRRIQUE) 03/03/2023 Comments No Sex and Gender Information Value Date Recorded Sex Assigned at Not on file Legal Sex Female 1:10 PM PLATE MOLDER Gender Identity Not on file Sexual Orientation [...] 87.1 kg (192 lb) 05/05/2024 3:16 PM PLATE MOLDER Height 162.6 cm (5' 4 ) 05/05/2024 3:16 PM PLATE MOLDER Body Mass Index 32.96 05/05/2024 3:16 PM PLATE MOLDER Plan of Treatment Not on file Medical Devices Implanted Type Area Direct Support Staff Device Identifier Shelf Expiration Date Model / Serial / Lot [employer] Universa 6fr 24cm Radiopaque Graduate Firm Monofilament Tether [id number] - Sn/A - [id number] Implanted:Qty: 1 on 05/08/2022 by Timi Hernandez MD at [facility] Stent Right: Ureter [employer] 02/15/2025 [id number] / N/A / [id number] [employer] Universa 6fr 24cm Radiopaque Graduate Firm Monofilament Tether [id number] - [id number] Implanted:Qty: 1 on 08/14/2022 by Timi Hernandez MD at [facility] Stent Right: Ureter [employer] 12/19/2024 [id number] / / [id number] [employer] Stent Ureteral Set Double Pigtail Radiopaque Tip Universa 0nen31po Polyurethane Hydrophilic Coated [id number] - [id number] Implanted:Qty: 1 on 09/03/2023 at [facility] Right: Ureter [employer] 10/16/2025 [id number] / / [id number] [employer] Stent Ureteral Set Double Pigtail Radiopaque Tip Universa [id number] Polyurethane Hydrophilic Coated [id number] - [id number] Implanted:Qty: 1 on 01/21/2024 at [facility] Right: Ureter [employer] 07/02/2024 [id number] / / [id number] Explanted Type Area Direct Support Staff Device Identifier Shelf Expiration Date Model / Serial / Lot [employer] Maddi [id number] 4.8fr 14cm Taper Tip Bladder Raoul Low Profile Large Inner Lumen Latex Free - [id number] Implanted:Qty: 1 on 11/28/2018 by Timi Hernandez MD at [facility] Explanted:Qty: 1 on 02/08/2019 by Ricardo Pineda MD at [facility] Stent N/A: Ureter [employer] [id number] 07/15/2019 [id number] / / [id number] Description:Transplant kidne y ureter; stent intact [employer] [id number] 4.8fr 14cm Taper Tip Bladder Raoul Low Profile Large Inner Lumen Latex Free - [id number] - [id number] Implanted:Qty: 1 on 02/08/2019 by Ricardo Pineda MD at [facility] Explanted:Qty: 1 on 05/03/2019 by Blaire Miller MD at [facility] Stent Right: Ureter [employer] 06/18/2020 [id number] / [id number] / [employer] [id number] 4.8fr 14cm Taper Tip Bladder Raoul Low Profile Large Inner Lumen Latex Free - [id number] Implanted:Qty: 1 on 05/03/2019 by Blaire Miller MD at [facility] Explanted:Qty: 1 on 09/13/2019 by Timi Hernandez MD at [facility] Stent Ureter [employer] [id number] 08/09/2021 [id number] / / [id number] [employer] [id number] Inlay Stirling 4.7fr 14cm Pusher Fluoro Marker Atraumatic Insertion Latex Free - [id number] Implanted:Qty: 1 on 03/08/2020 by Timi Hernandez MD at [facility] Explanted:Qty: 1 on 01/31/2021 by Timi Hernandez MD at [facility] Stent Right: Ureter [employer] 11/27/2021 [id number] / / [id number] [employer] [id number] Set Stent 14cm 4.7fr [place] Mandril Small 2 Pigtail Curve - [id number] - [id number] Implanted:Qty: 1 on 08/23/2020 by Timi Hernandez MD at [facility] Explanted:Qty: 1 on 01/31/2021 by Timi Hernandez MD at [facility] Stent Right: Ureter [employer] 05/23/2023 [id number] / [id number] / [id number] [employer] [id number] Set Stent 14cm 4.7fr [place] Mandril Small 2 Pigtail Curve - [id number] Implanted:Qty: 1 on 11/15/2020 by Timi Hernandez MD at [facility] Explanted:Qty: 1 on 01/31/2021 by Timi Hernandez MD at [facility] Stent Right: Ureter [employer] 09/20/2023 [id number] / / [id number] [employer] [id number] Inlay Stirling 6fr 24cm Pusher Fluoro Marker Atraumatic Insertion Latex Free - [id number] Implanted:Qty: 1 on 06/05/2021 by Gary Urban MD at [facility] Explanted:Qty: 1 on 11/14/2021 by Timi Hernandez MD at [facility] Stent Right: Ureter [employer] [id number] 10/24/2025 [id number] / / [id number] [employer] Universa 6fr 24cm Radiopaque Graduate Firm Monof[employer] Tether [id number] - [id number] Implanted:Qty: 1 on 11/14/2021 by Timi Hernandez MD at [facility] Explanted:Qty: 1 on 02/13/2022 at [facility] Stent Right: Ureter [employer] 07/19/2024 [id number] / / [id number] [employer] Universa 6fr 24cm Radiopaque Graduate Firm Monof[employer] Tether [id number] - [id number] Implanted:Qty: 1 on 02/13/2022 by Timi Hernandez MD at [facility] Explanted:Qty: 1 on 05/08/2022 by Timi Hernandez MD at [facility] Stent [employer] 10/08/2024 [id number] / / [id number] [employer] Universa 6fr 20cm Radiopaque Positioner Monofilament Tether 2 [id number] - [id number] - [id number] Implanted:Qty: 1 on 11/06/2022 by Timi Hernandez MD at [facility] Explanted:Qty: 1 on 03/17/2023 by Carson Gatica DO at [facility] Stent Right: Ureter [employer] 02/18/2025 [id number] / [id number] / [id number] [employer] Universa 6fr 20cm Radiopaque Positioner Monofilament Tether 2 [id number] - Sn/A - [id number] Implanted:Qty: 1 on 06/04/2023 by Timi Hernandez MD at [facility] Explanted:Qty: 1 on 01/21/2024 by Neel Rodriguez MD at [facility] Stent Right: Ureter [employer] 07/02/2024 [id number] / N/A / [id number] Description:Implant pause co mpleted prior to opening implant on sterile field [employer] [id number] 4.8fr 16cm Taper Tip Bladder Raoul Low Profile Large Inner Lumen Latex Free - [id number] Implanted:Qty: 1 on 09/13/2019 by Timi Hernandez MD at [facility] Explanted:Qty: 1 on 03/08/2020 at [facility] Right: Ureter [employer] 09/28/2020 [id number] / / [employer] [id number] Inlay Stirling 4.7fr 14cm Pusher Fluoro Marker Atraumatic Insertion Latex Free - [id number] Implanted:Qty: 1 on 12/08/2019 by Timi Hernandez MD at [facility] Explanted:Qty: 1 on 06/07/2020 by Timi Hernandez MD at [facility] Right: Ureter [employer] 11/27/2021 [id number] / / [id number] [employer] [id number] Inlay Stirling 4.7fr 14cm Pusher Fluoro Marker Atraumatic Insertion Latex Free - [id number] Implanted:Qty: 1 on 06/07/2020 by Timi Hernandez MD at [facility] Explanted:Qty: 1 on 01/31/2021 by Timi Hernandez MD at [facility] Right: Ureter [employer] 11/27/2021 [id number] / / [id number] [employer] [id number] Set Stent 14cm 4.7fr [place] Mandril Small 2 Pigtail Curve - [id number] Implanted:Qty: 1 on 01/31/2021 by Timi Hernandez MD at [facility] Explanted:Qty: 1 on 06/05/2021 by Gary Urban MD at [facility] Urethra [employer] [id number] 07/15/2022 [id number] / / [id number] Description:Intact and compl ete [employer] Universa 6fr 20cm Radiopaque Positioner Monofilament Tether 2 [id number] - [id number] Implanted:Qty: 1 on 03/17/2023 by Carson Gatica DO at [facility] Explanted:Qty: 1 on 06/04/2023 by Timi Hernandez MD at [facility] Right: Ureter [employer] [id number] 10/24/2025 [id number] / / [id number] Procedures Procedure Name Priority Date/Time Associated Diagnosis Comments TACROLIMUS, HIGHLY SENSITIVE, LC/MS/MS Routine 06/15/2024 10:01 AM PLATE MOLDER PROTEIN / CREATININE RATIO, URINE, RANDOM Routine 06/15/2024 10:01 AM PLATE MOLDER RENAL FUNCTION PANEL Routine 06/15/2024 10:01 AM PLATE MOLDER CBC WITH AUTO DIFFERENTIAL Routine 06/15/2024 10:01 AM PLATE MOLDER COPY(IES) SENT TO: Routine 06/15/2024 10:01 AM PLATE MOLDER BK VIRUS, DNA, QUANTITATIVE Routine 06/15/2024 10:01 AM PLATE MOLDER CYTOMEGALOVIRUS (CMV) DNA, QUANT GEN LAB Routine 06/15/2024 10:01 AM PLATE MOLDER PROTEIN / CREATININE RATIO, URINE, RANDOM Routine 05/11/2024 8:55 AM PLATE MOLDER RENAL FUNCTION PANEL Routine 05/11/2024 8:55 AM PLATE MOLDER TACROLIMUS, HIGHLY SENSITIVE, LC/MS/MS Routine 05/11/2024 8:55 AM PLATE MOLDER CBC WITH AUTO DIFFERENTIAL Routine 05/11/2024 8:55 AM PLATE MOLDER COPY(IES) SENT TO: Routine 05/11/2024 8: 55 AM PLATE MOLDER CYTOMEGALOVIRUS (CMV) DNA, QUANT GEN LAB Routine 05/11/2024 8:55 AM PLATE MOLDER BK VIRUS, DNA, QUANTITATIVE Routine 05/11/2024 8:55 AM PLATE MOLDER PROTEIN / CREATININE RATIO, URINE, RANDOM Routine 04/08/2024 9:41 AM PLATE MOLDER TACROLIMUS, HIGHLY SENSITIVE, LC/MS/MS Routine 04/08/2024 9:41 AM PLATE MOLDER RENAL FUNCTION PANEL Routine 04/08/2024 9:41 AM PLATE MOLDER CBC WITH AUTO DIFFERENTIAL Routine 04/08/2024 9:41 AM PLATE MOLDER COPY(IES) SENT TO: Routine 04/08/2024 9: 41 AM PLATE MOLDER CYTOMEGALOVIRUS (CMV) DNA, QUANT GEN LAB Routine 04/08/2024 9:41 AM PLATE MOLDER BK VIRUS, DNA, QUANTITATIVE Routine 04/08/2024 9:41 AM PLATE MOLDER HEPATITIS PANEL, ACUTE STAT 10:00 AM CDT PYELOGRAM - RETROGRADE Obstruction [...] Recently Relevant to Health Maintenance Results * (ABNORMAL) Tacrolimus, Highly Sensitive, LC/MS/MS (06/15/2024 10:01 AM PLATE MOLDER) Tacrolimus, Highly Sensitive, LC/MS/MS <1.0(L) mcg/L [facility] Comment: Verified by repeat analysis. No definitive therapeutic or toxic ranges have been established. Optimal blood drug levels are influenced by type of transplant, patient response, time post- transplant, co-administration of other drugs, and drug formulation. The following trough range is a suggested guideline: 5.0-20.0 mcg/L. 06/15/2024 10:0 1 AM PLATE MOLDER 06/15/2024 10:02 AM PLATE MOLDER Narrative [facility] - 06/18/2024 10:27 AM PLATE MOLDER LB Bruce Justice MD LAB BLOOD ORDERABLES Final Resu lt [facility] [address] [place] [address] * Cytomegalovirus (CMV) DNA PCR, quantitative (06/15/2024 10:01 AM PLATE MOLDER) CMV DNA qn Not Detected Not Detected IU/mL [facility] CMV DNA log IU/mL Not Detected Not Detected Log IU/mL [facility] Comment: (Note) For additional information, please refer to [email or web address] (This link is being provided for informational/educational purposes only.) [facility] [address] [address],[address] [place] [address] Laurita Deleon MD, PhD 06/15/2024 10:0 1 AM PLATE MOLDER 06/15/2024 10:02 AM PLATE MOLDER Narrative [facility] - 06/18/2024 10:27 AM PLATE MOLDER LB Bruce Justice MD LAB MICROBIOLOGY - GENERAL ORDE RABLES Final Result [facility] [address] [address], [address] [place] [address] * COPY(IES) SENT TO: (06/15/2024 10:01 AM PLATE MOLDER) COPY(IES) SENT TO: [facility] Comment: [facility] - COPY TO [address] [place] [address] 06/15/2024 10:0 1 AM PLATE MOLDER 06/15/2024 10:02 AM PLATE MOLDER Narrative [facility] - 06/18/2024 10:27 AM PLATE MOLDER LB Bruce Justice MD LAB BLOOD ORDERABLES Final Resu lt [facility] * (ABNORMAL) BK virus, DNA, quantitative (06/15/2024 10:01 AM PLATE MOLDER) Pathologist [facility] BK virus, PCR 41(A) Not Detected IU/mL [facility] BK Virus DNA, Real Time PCR 1.61(A) Not Detected Log IU/mL [facility] Comment: [facility] [address] [address],[address] [facility] [address] Laurita Deleon MD, PhD 06/15/2024 10:0 1 AM PLATE MOLDER 06/15/2024 10:02 AM PLATE MOLDER Narrative [facility] - 06/18/2024 10:27 AM PLATE MOLDER LB Bruce Justice MD LAB [facility]OLOGY [facility] Final Result [facility] [address] [address], [address] [place] [phone] * (ABNORMAL) CBC with auto differential (06/15/2024 10:01 AM PLATE MOLDER) Pathologist [facility] WBC 7.8 3.8 - 10.8 Thousand/u L [...] [facility] 06/15/2024 10:0 1 AM PLATE MOLDER 06/15/2024 10:02 AM PLATE MOLDER Narrative [facility] - 06/18/2024 10:27 AM PLATE MOLDER LB us Bruce Justice MD LAB BLOOD ORDERABLES Final Resu lt [facility] [address] [place] [address] * (ABNORMAL) Protein / creatinine ratio, urine, random (06/15/2024 10:01 AM PLATE MOLDER) Creatinine, ur 21 20 - 275 mg/dL [facility] Protein/creati nine ratio 35,000(H) 24 - 184 mg/g creat [facility] Protein/Creati nine Ratio 35.000(H) 0.024 - 0.184 mg/mg creat [facility] Protein, ur, quant 735(H) 5 - 24 mg/dL [facility] Comment: Verified by repeat analysis. 06/15/2024 10:0 1 AM PLATE MOLDER 06/15/2024 10:02 AM PLATE MOLDER Narrative [facility] - 06/18/2024 10:27 AM PLATE MOLDER LB Bruce Justice MD LAB URINE ORDERABLES Final Resu lt Performing Organization Address [facility] Co de Phone Number [facility] [address] [address] [phone] * (ABNORMAL) Renal function panel (06/15/2024 10:01 AM PLATE MOLDER) Pathologist [facility] Glucose 90 65 - 99 mg/dL [facility] [...] [facility] 06/15/2024 10:0 1 AM PLATE MOLDER 06/15/2024 10:02 AM PLATE MOLDER Narrative [facility] - 06/18/2024 10:27 AM PLATE MOLDER LB Bruce Justice MD LAB BLOOD ORDERABLES Final Resu lt Performing Organization Address [facility] de Phone Number [facility] [address] [place] [address] * (ABNORMAL) Tacrolimus, Highly Sensitive, LC/MS/MS (05/11/2024 8:55 AM PLATE MOLDER) Pathologist [facility] Tacrolimus, Highly Sensitive, LC/MS/MS 1.2(L) mcg/L [facility] Comment: No definitive therapeutic or toxic ranges have been established. Optimal blood drug levels are influenced by type of transplant, patient response, time post- transplant, co-administration of other drugs, and drug formulation. The following trough range is a suggested guideline: 5.0-20.0 mcg/L. 05/11/2024 8:55 AM PLATE MOLDER 05/11/2024 8:56 AM PLATE MOLDER Narrative [facility] - 05/15/2024 2:37 AM PLATE MOLDER LB FASTING:YES FASTING: YES Bruce Justice MD LAB BLOOD ORDERABLES Final Resu lt Performing Organization Address [facility] de Phone Number [facility] [address] [place] [address] * Cytomegalovirus (CMV) DNA PCR, quantitative (05/11/2024 8:55 AM PLATE MOLDER) Pathologist [facility] CMV DNA qn Not Detected Not Detected IU/mL [facility] CMV DNA log IU/mL Not Detected Not Detected Log IU/mL [facility] Comment: (Note) For additional information, please refer to [email or web address] (This link is being provided for informational/educational purposes only.) [facility] [address] [address],[address] [facility] [address] Laurita Deleon MD, PhD 05/11/2024 8:55 AM PLATE MOLDER 05/11/2024 8:56 AM PLATE MOLDER Narrative [facility] - 05/15/2024 2:37 AM PLATE MOLDER LB FASTING:YES FASTING: YES Bruce Justice MD LAB MICROBIOLOGY - GENERAL ORDE RABLES Final Result [facility] [address] [place] [address], [address] [place] [phone] * COPY(IES) SENT TO: (05/11/2024 8:55 AM PLATE MOLDER) COPY(IES) SENT TO: [facility] Comment: [facility]NEY - COPY TO [address] [address] 05/11/2024 8:55 AM PLATE MOLDER 05/11/2024 8:56 AM PLATE MOLDER Narrative [facility] - 05/15/2024 2:37 AM PLATE MOLDER LB FASTING:YES FASTING: YES Bruce Justice MD LAB BLOOD ORDERABLES Final Resu lt Performing Organization Address City/[facility]/ZIP Co de Phone Number [facility] * BK virus, DNA, quantitative (05/11/2024 8:55 AM PLATE MOLDER) [facility] BK virus, PCR Not Detected Not Detected IU/mL [facility] BK Virus DNA, Real Time PCR Not Detected Not Detected Log IU/mL [facility] Comment: F med fusion [address] [place] [address],[address] [place], [place] [id number] Laurita Deleon MD, PhD 05/11/2024 8:55 AM PLATE MOLDER 05/11/2024 8:56 AM PLATE MOLDER Narrative [facility] - 05/15/2024 2:37 AM PLATE MOLDER LB FASTING:YES FASTING: YES Bruce Justice MD LAB MICROBIOLOGY - GENERAL ORDE RABLES Final Result Performing Organization Address City/[facility]/ZIP Co de Phone Number [facility] [address] [place] [address], [address] [place] [phone] * (ABNORMAL) CBC with auto differential (05/11/2024 8:55 AM PLATE MOLDER) [facility] WBC 7.0 3.8 - 10.8 Thousand/u L [...] % [facility] 05/11/2024 8:55 AM PLATE MOLDER 05/11/2024 8:56 AM PLATE MOLDER Narrative [facility] - 05/15/2024 2:37 AM PLATE MOLDER LB FASTING:YES FASTING: YES us Bruce Justice MD LAB BLOOD ORDERABLES Final Resu lt [facility] [address] [place] [address] * (ABNORMAL) Protein / creatinine ratio, urine, random (05/11/2024 8:55 AM PLATE MOLDER) Creatinine, ur 7(L) 20 - 275 mg/dL [facility] Protein/creati nine ratio 244,286(H) 24 - 184 mg/g creat [facility] Protein/Creati nine Ratio 244.286(H) 0.024 - 0.184 mg/mg creat [facility] Protein, ur, quant 1,710(H) 5 - 24 mg/dL [facility] Comment: Results verified by repeat analysis on dilution. 05/11/2024 8:55 AM PLATE MOLDER 05/11/2024 8:56 AM PLATE MOLDER Narrative [facility] - 05/15/2024 2:37 AM PLATE MOLDER LB FASTING:YES FASTING: YES us Bruce Justice MD LAB URINE ORDERABLES Final Resu lt [facility] [address] [place] [address] * (ABNORMAL) Renal function panel (05/11/2024 8:55 AM PLATE MOLDER) Pathologist [facility] Glucose 87 65 - 99 mg/dL [facility] [...] g/dL [facility] 05/11/2024 8:55 AM PLATE MOLDER 05/11/2024 8:56 AM PLATE MOLDER Narrative [facility] - 05/15/2024 2:37 AM PLATE MOLDER LB FASTING:YES FASTING: YES Bruce Justice MD LAB BLOOD ORDERABLES Final Resu Performing Organization Address [facility] de Phone Number [facility] [address] [place] [address] * (ABNORMAL) Tacrolimus, Highly Sensitive, LC/MS/MS (04/08/2024 9:41 AM PLATE MOLDER) [facility] Tacrolimus, Highly Sensitive, LC/MS/MS <1.0(L) mcg/L [facility] Comment: Verified by repeat analysis. No definitive therapeutic or toxic ranges have been established. Optimal blood drug levels are influenced by type of transplant, patient response, time post- transplant, co-administration of other drugs, and drug formulation. The following trough range is a suggested guideline: 5.0-20.0 mcg/L. 04/08/2024 9:41 AM PLATE MOLDER 04/08/2024 9:42 AM PLATE MOLDER Narrative [facility] - 04/15/2024 4:01 AM PLATE MOLDER LB Bruce Justice MD LAB BLOOD ORDERABLES Final Resu Performing Organization Address [facility] de Phone Number [facility] [address] [place] [address] * (ABNORMAL) Cytomegalovirus (CMV) DNA PCR, quantitative (04/08/2024 9:41 AM PLATE MOLDER) [facility] CMV DNA qn Results Below(A) Not Detected IU/mL [facility] Comment:Test not performed. Quantity not sufficient. CMV DNA log IU/mL Results Below(A) Not Detected Log IU/mL [facility] Comment: Test not performed. Quantity not sufficient. [facility] [address] [address],[address] [facility] [address] Laurita Deleon MD, PhD 04/08/2024 9:41 AM PLATE MOLDER 04/08/2024 9:42 AM PLATE MOLDER Narrative [facility] - 04/15/2024 4:01 AM PLATE MOLDER LB Bruce Justice MD LAB [facility]CROBIOLOGY - [facility] Final Result [facility] [address] [address], [address] [place] [address] * COPY(IES) SENT TO: (04/08/2024 9:41 AM PLATE MOLDER) COPY(IES) SENT TO: [facility] Comment: [facility] [address] [place] [address] [facility] KIDNEY - COPY TO [address] [address] 04/08/2024 9:41 AM PLATE MOLDER 04/08/2024 9:42 AM PLATE MOLDER Narrative [facility] - 04/15/2024 4:01 AM PLATE MOLDER LB Bruce Justice MD LAB BLOOD ORDERABLES Final Resu lt [facility] * BK virus, DNA, quantitative (04/08/2024 9:41 AM PLATE MOLDER) BK virus, PCR Not Detected Not Detected IU/mL [facility] BK Virus DNA, Real Time PCR Not Detected Not Detected Log IU/mL [facility] Comment: Your request to have a duplicate copy faxed has been acknowledged. Queued to: [id number] 04/08/2024 9:41 AM PLATE MOLDER 04/08/2024 9:42 AM PLATE MOLDER Narrative [facility] - 04/15/2024 4:01 AM PLATE MOLDER LB us Bruce Justice MD LAB MICROBIOLOGY - GENERAL [place] Final Result [facility] [address] [address], [address] [place] [address] * (ABNORMAL) CBC with auto differential (04/08/2024 9:41 AM PLATE MOLDER) Pathologist [facility] WBC 8.4 3.8 - 10.8 Thousand/u L [...] % [facility] 04/08/2024 9:41 AM PLATE MOLDER 04/08/2024 9:42 AM PLATE MOLDER Narrative [facility] - 04/15/2024 4:01 AM PLATE MOLDER LB us Bruce Justice MD LAB BLOOD ORDERABLES Final Resu lt Performing Organization Address [facility] Co de Phone Number [facility] [address] [place] [address] * (ABNORMAL) Protein / creatinine ratio, urine, random (04/08/2024 9:41 AM PLATE MOLDER) Creatinine, ur <1(L) 20 - 275 mg/dL [...] repeat analysis on dilution. 04/08/2024 9:41 AM PLATE MOLDER 04/08/2024 9:42 AM PLATE MOLDER Narrative [facility] - 04/15/2024 4:01 AM PLATE MOLDER LB us Bruce Justice MD LAB URINE ORDERABLES Final Resu lt Performing Organization Address [facility] Co de Phone Number [facility] [address] [place] [address] * (ABNORMAL) Renal function panel (04/08/2024 9:41 AM PLATE MOLDER) Glucose 82 65 - 99 mg/dL [facility] [...] g/dL [facility] 04/08/2024 9:41 AM PLATE MOLDER 04/08/2024 9:42 AM PLATE MOLDER Narrative [facility] - 04/15/2024 4:01 AM PLATE MOLDER LB us Bruce Justice MD LAB BLOOD ORDERABLES Final Resu lt [facility] [address] [facility] [place] [address] * Hepatitis panel, acute Blood (12/03/2023 10:00 AM CDT) Hep A IgM Nonreactive Nonreactive Comment: Interpretive Data: If Hep A IgM Ab is reported as Equivocal, a new sample should be drawn in two weeks for testing. Current interpretive data was last revised on 19. Hep B core IgM Nonreactive Nonreactive [facility] Comment: Interpretive Data If HepB Core IgM Ab is reported as Equivocal, a new sample should be drawn in two weeks for testing. Current interpretive data was last revised on 19. Hep C Ab Nonreactive Nonreactive [facility] Comment: Interpretive Data Nonreactive: Antibodies to HCV [...] 0 AM CDT 12/03/2023 10:01 AM CDT Anna Clarke MD LAB MICROBIOLOGY - GENERAL OR DERABLES Final Result [facility] [address] [address] [place] [address] from Last 3 Months or Most Recently Relevant to Health Maintenance Insurance [facility] H[facility]PPO Address: [address] [place] [address] MEDICARE MEDICARE [facility] MEDICARE MEDICARE [facility] Advance Directives For more information, please contact: [phone] * Full Code (Latest Code Status on File) Date Activated Date Inactivated Comments 12/30/2023 9:22 PM 01/01/2024 2:58 PM * Full Code Date Activated Date Inactivated Comments 12/01/2023 8:46 PM 12/04/2023 5:48 PM * Full Code Date Activated Date Inactivated Comments 04/21/2023 9:31 PM 04/24/2023 6:40 PM * Full Code Date Activated Date Inactivated Comments 03/15/2023 7:47 AM 03/19/2023 4:59 PM * Full Code Date Activated Date Inactivated Comments 03/01/2023 10:10 AM 03/04/2023 8:53 PM Care Teams Sales Development Specialist Relationship Specialty Start Date End Date Nikkie Gordon MD PCP - General Family Medicine 03/09/21 Nikkie Gordon MD 03/09/21 Susan Jones MD 11/27/18 Kristian Ram MD Consulting Physician Nephrology 05/05/19 Chelo Herzog, RN [address] [facility] [address] [place] [address] Laundry Attendant 05/05/19 [place] [address] [place] [address] [address] [place], [place] [id number] Channel Process Supervisor Cardiology 08/16/21 Tyson Bales MD [address] [facility] [id number] [place] [address] Channel Process Supervisor Cardiovascular Disease 04/16/22 Kristian Ram MD [address] [place] [address] [address] [place] [address] Referring Physician Nephrology 03/11/23 Anna Clarke MD [address] [place] [address] [address] [place] [address] Consulting Physician Nephrology 04/24/23
--- OUTSIDE RECORDS SUMMARY | 2024-06-24 01:53 | XMS_ITS | Clinical Summary ---
[facility] Address [address] [place] [address] Care Team Providers Care Message Broker Developer Name Role Phone Nikkie Gordon MD Primary Care Provider [phone] Nikkie Gordon MD Unavailable [phone] Susan Jones MD Unavailable [phone] Kristian Ram MD Unavailable [phone] Chelo Herzog RN Unavailable [phone] Davidson Martinez MD Unavailable [phone] Tyson Bales MD Unavailable Kristian Ram MD Unavailable [phone] Anna Clarke MD Unavailable [phone] Allergies Active Allergy Reactions Criticality Noted Date [...] - Trend Sepsis due to undetermined organism ([facility]) Shortness of breath 04/23/2023 Hyperkalemia 04/21/2023 Gross hematuria 03/14/2023 Dialysis patient 03/02/2023 Morbid obesity 03/01/2023 Assessment & Plan (03/02/2023 12:00 PM CAN INSPECTOR): Body mass index is 34.15 kg/m . - discussed risks of obesity and association with chronic medical problems including HTN, DM, and NEREYDA - advised patient on importance of maintaining a diet and exercise regimen including cardiovascular and weight-bearing exercises - nutrition consultation Physical deconditioning 06/01/2021 Assessment & Plan (06/07/2021 2:29 PM CAN INSPECTOR): Multifactorial but mostly driven by her neuropathy and malnutrition - PT/OT recommending SNF. Pt not amenable. - Home PT/OT with 24 hr supervision. States son can provide supervision. Assessment & Plan (06/06/2021 2:58 PM CAN INSPECTOR): Multifactorial but mostly driven by her neuropathy -PT/OT recommending SNF. Pt not amenable. Assessment & Plan (06/05/2021 7:10 PM CAN INSPECTOR): Multifactorial but mostly driven by her neuropathy -PT/OT recommending SNF, she is considering but may still elect to discharge home Assessment & Plan (06/04/2021 9:50 AM CAN INSPECTOR): Multifactorial but mostly driven by her neuropathy -PT/OT recommending SNF, she is considering but may still elect to discharge home Assessment & Plan (06/03/2021 10:29 AM CAN INSPECTOR): Multifactorial but mostly driven by her neuropathy -PT/OT recommending SNF, she is considering but may still elect to discharge home Assessment & Plan (06/02/2021 12:57 PM CAN INSPECTOR): Multifactorial but mostly driven by her neuropathy -PT/OT recommending SNF, she is considering but may still elect to discharge home Assessment & Plan (06/01/2021 12:38 PM CAN INSPECTOR): Multifactorial but mostly driven by her neuropathy -PT/OT recommending SNF, she is considering but may still elect to discharge home Pyelonephritis of transplanted kidney vs UTI 06/2021 Assessment & Plan (06/07/2021 2:25 PM CAN INSPECTOR): Spiked temperature of 38.2 on 05/30 once [...] collection Assessment & Plan (06/06/2021 2:50 PM CAN INSPECTOR): Spiked temperature of 38.2 on 05/30 once [...] ) Assessment & Plan (06/05/2021 7:14 PM CAN INSPECTOR): Spiked temperature of 38.2 on 05/30 once [...] duration. Assessment & Plan (06/04/2021 9:51 AM CAN INSPECTOR): Spiked temperature of 38.2 on 05/30 once [...] sample Assessment & Plan (06/03/2021 10:33 AM CAN INSPECTOR): Spiked temperature of 38.2 on 05/30 once [...] cultures Assessment & Plan (06/02/2021 12:53 PM CAN INSPECTOR): Spiked temperature of 38.2 on 2/2 once scheduled Tylenol was held for COVID [...] resulting Assessment & Plan (06/01/2021 12:34 PM CAN INSPECTOR): Spiked temperature of 38.2 on 05/30 once [...] cultures Assessment & Plan (05/31/2021 8:40 AM CAN INSPECTOR): Spiked temperature overnight of 38.2 once scheduled [...] 05/28/2021 Assessment & Plan (06/06/2021 2:58 PM CAN INSPECTOR): Poor appetite, encourage protein supplementations. Nutrition consult Assessment & Plan (06/05/2021 7:16 PM CAN INSPECTOR): Poor appetite, encourage protein supplementations. Nutrition consult Assessment & Plan (06/04/2021 9:52 AM CAN INSPECTOR): Poor appetite, encourage protein supplementations. Nutrition consult Assessment & Plan (06/03/2021 10:29 AM CAN INSPECTOR): Poor appetite, encourage protein supplementations. Nutrition consult Assessment & Plan (06/02/2021 12:55 PM CAN INSPECTOR): Poor appetite, encourage protein supplementations. Nutrition consult Assessment & Plan (06/01/2021 12:36 PM CAN INSPECTOR): Poor appetite, encourage protein supplementations. Nutrition consult Assessment & Plan (05/31/2021 11:07 AM CAN INSPECTOR): Poor appetite, encourage protein supplementations. Nutrition consult Assessment & Plan (05/30/2021 10:51 AM CAN INSPECTOR): Poor appetite, encourage protein supplementations. Nutrition consult Assessment & Plan (05/29/2021 1:35 PM CAN INSPECTOR): Poor appetite, encourage protein supplementations. Nutrition consult Leg pain, bilateral 05/26/2021 Assessment & Plan (06/07/2021 2:27 PM CAN INSPECTOR): According to the patient, this began with [...] amenable. Assessment & Plan (06/06/2021 2:54 PM CAN INSPECTOR): According to the patient, this began with [...] amenable. Assessment & Plan (06/05/2021 7:17 PM CAN INSPECTOR): According to the patient, this began with [...] DVT Assessment & Plan (06/04/2021 9:49 AM CAN INSPECTOR): According to the patient, this began with [...] DVT Assessment & Plan (06/03/2021 10:29 AM CAN INSPECTOR): According to the patient, this began with [...] DVT Assessment & Plan (06/02/2021 1:01 PM CAN INSPECTOR): According to the patient, this began with [...] DVT Assessment & Plan (06/01/2021 12:38 PM CAN INSPECTOR): According to the patient, this began with [...] DVT Assessment & Plan (05/31/2021 11:07 AM CAN INSPECTOR): According to the patient, this began with [...] DVT Assessment & Plan (05/30/2021 10:50 AM CAN INSPECTOR): According to the patient, this began with [...] DVT Assessment & Plan (05/29/2021 1:33 PM CAN INSPECTOR): According to the patient, this began with [...] DVT Assessment & Plan (05/28/2021 10:52 AM CAN INSPECTOR): According to the patient, this began with [...] sciatica Assessment & Plan (05/27/2021 9:49 AM CAN INSPECTOR): According to the patient, this began with swelling after her recent discharge from the hospital after Medications were changed (diuretics). Tramadol is effective for her. Will start with tramadol 25 mg TID prn. Monitor edema and sxs. Pt walks with walker, PT/OT evaluations Dopplers to r/o DVT s/p COVID Assessment & Plan (05/26/2021 5:26 PM CAN INSPECTOR): According to the patient, this began with swelling after her recent discharge from the hospital after Medications were changed (diuretics). Tramadol is effective for her. Will start with tramadol 25 mg TID prn. Monitor edema and sxs. Pt walks with walker, PT/OT evaluations Pneumonia due to COVID-19 virus 05/10/2021 Assessment & Plan (05/15/2021 2:07 PM CAN INSPECTOR): Symptom onset 05/02/21, positive test 05/09 at OSH (see care everywhere for confirmation) Cont O2, wean as able Cont decadron (d#1=05/10) Remdesivir continued w renal txp's blessing, s/p 5 days VTE ppx with SQ heparin Assessment & Plan (05/14/2021 3:22 PM CAN INSPECTOR): Symptom onset 05/02/21, positive test 05/09 at OSH (see care everywhere for confirmation) Cont O2, wean as able Cont decadron (d#1=05/10) Remdesivir continued w renal txp's blessing, d#5 today VTE ppx with SQ heparin Assessment & Plan (05/13/2021 11:08 AM CAN INSPECTOR): Symptom onset 05/02/21, positive test 05/09 at OSH (see care everywhere for confirmation) Cont O2, wean as able Cont decadron (d#1=05/10) Remdesivir continued w renal txp's blessing, d#4 today VTE ppx with SQ heparin Assessment & Plan (05/12/2021 12:01 PM CAN INSPECTOR): Symptom onset 05/02/21, positive test 05/09 at OSH (see care everywhere for confirmation) Cont O2, wean as able Cont decadron (d#1=05/10) Remdesivir continued w renal txp's blessing, d#3 today VTE ppx with SQ heparin Assessment & Plan (05/11/2021 1:29 PM CAN INSPECTOR): Onset of symptoms ~05/02/21 with worsening dyspnea, fatigue and progressive symptoms prompting presentation. Now on 5L supplemental oxygen. Tested positive for COVID 05/09/21 -dexamethasone 6mg daily (05/10/20- -discussed remdesivir with renal transplant, started 05/10-- closely monitoring liver enzymes and for bradycardia and seizures -wean supplemental O2 as able Well woman exam 04/04/2021 Assessment & Plan (04/04/2021 12:24 PM CAN INSPECTOR): Pap done secondary to last one being remote and she is immuno-supressed after her transplant. RTO 12m. I will send the results to the portal. If she has not heard in a week, to call the office. Breast swelling 04/04/2021 Assessment & Plan (04/04/2021 3:20 PM CAN INSPECTOR): She is s/p bx. I will look [...] 04/04/2021 Assessment & Plan (04/04/2021 3:20 PM CAN INSPECTOR): The patient was encouraged to stop smoking. Techniques for smoking cessation were discussed to the patient's level of interest. Preoperative testing 11/09/2020 Hydrohepatosis 09/22/2020 Overview (09/22/2020): Added automatically from request for surgery [id number] Hypernatremia 08/05/2020 Assessment & Plan (08/05/2020 11:08 AM CDT): Due to Na bicarb drip ordered for correction of metabolic acidosis. - discontinue bicarb drip - will likely resolve, no need for further testing unless otherwise indicated Hydronephrosis, right 09/21/2019 Overview (09/21/2019): Added automatically from request for surgery [id number] Other proteinuria 05/05/2019 Obstruction of right ureter 02/19/2019 Overview (02/19/2019): Added automatically from request for surgery [id number] Obesity, Class II, BMI 35-39.9 01/29/2019 Assessment & Plan (05/27/2021 9:48 AM CAN INSPECTOR): RD consult while here for diet education Pt has low appetite, not eating much Supplements ordered Assessment & Plan (05/26/2021 5:17 PM CAN INSPECTOR): RD consult while here for diet education Hydronephrosis 12/11/2018 Overview (12/11/2018): Added automatically from request for surgery [id number] Uterine fibroid 12/02/2018 Assessment & Plan (12/05/2018 [...] 11/30/2018 Assessment & Plan (05/28/2021 10:50 AM CAN INSPECTOR): Continue iron supplements Assessment & Plan (05/27/2021 9:47 AM CAN INSPECTOR): Continue iron supplements Assessment & Plan (05/26/2021 5:18 PM CAN INSPECTOR): Continue iron supplements Assessment & Plan (12/05/2018 [...] (11/27/2018): Added automatically from request for surgery [id number] Assessment & Plan (12/31/2023 9:55 AM CDT): [...] electives. Assessment & Plan (06/07/2021 2:28 PM CAN INSPECTOR): History of ureteral obstruction from known fibroid and having ureteral exchanges every 3 months with urology (next scheduled on 06/06). - Urethral stent exchanged 06/05. - Follow up with urology outpatient Assessment & Plan (06/06/2021 2:53 PM CAN INSPECTOR): History of ureteral obstruction from known fibroid and having ureteral exchanges every 3 months with urology (next scheduled on 06/06). - Urethral stent exchanged 06/05. Assessment & Plan (06/05/2021 7:15 PM CAN INSPECTOR): History of ureteral obstruction from known fibroid and having ureteral exchanges every 3 months with urology (next scheduled on 06/06). - Urethral stent exchanged 06/05. Assessment & Plan (06/04/2021 9:47 AM CAN INSPECTOR): History of ureteral obstruction from known fibroid and having ureteral exchanges every 3 months with urology (next scheduled on 06/06). -Discussed with urology here as her exchange is actually scheduled for [facility] on Fri and they are going to try and fit her on the OR schedule here -Will need to be NPO on Friday night Assessment & Plan (06/03/2021 10:28 AM CAN INSPECTOR): History of ureteral obstruction from known fibroid and having ureteral exchanges every 3 months with urology (next scheduled on 06/06). Assessment & Plan (06/02/2021 12:53 PM CAN INSPECTOR): History of ureteral obstruction from known fibroid and having ureteral exchanges every 3 months with urology (next scheduled on 06/06). Assessment & Plan (06/01/2021 12:35 PM CAN INSPECTOR): History of ureteral obstruction from known fibroid and having ureteral exchanges every 3 months with urology (next scheduled on 06/06). Assessment & Plan (05/31/2021 11:06 AM CAN INSPECTOR): History of ureteral obstruction from known fibroid and having ureteral exchanges every 3 months with urology (next scheduled on 06/06). Assessment & Plan (05/30/2021 10:48 AM CAN INSPECTOR): History of ureteral obstruction from known fibroid and having ureteral exchanges every 3 months with urology (next scheduled on 06/06). Assessment & Plan (05/29/2021 1:31 PM CAN INSPECTOR): History of ureteral obstruction from known fibroid and having ureteral exchanges every 3 months with urology (next scheduled on 06/06). Assessment & Plan (05/28/2021 10:50 AM CAN INSPECTOR): ureteral obstruction from known fibroid and having ureteral exchanges every 3 months with urology (next scheduled on 06/06). Assessment & Plan (05/27/2021 9:47 AM CAN INSPECTOR): ureteral obstruction from known fibroid and having ureteral exchanges every 3 months with urology (next scheduled on 06/06). Assessment & Plan (05/26/2021 5:16 PM CAN INSPECTOR): ureteral obstruction from known fibroid and having [...] not think this is the case. - Pension Agent consulted for uterine fibroid - MRI Pelvis W/O contrast - Management of stent per urology. Assessment & Plan (11/29/2018 12:15 PM CDT): Renal U/S at OSH with hydronephrosis of transplanted kidney now s/p ureteral stent by urology 11/28. Found to have extrinsic compression of ureter from likely uterine fibroid. -Management of stent per urology. -Agree with non-emergent fiber optics supervisor consult for management of fibroids. Hyperlipidemia, unspecified 11/27/2018 Assessment & Plan (03/02/2023 12:01 PM CAN INSPECTOR): Continue patient's home atorvastatin 10 mg daily Hypertension, essential 11/27/2018 Assessment & Plan (05/14/2021 3:24 PM CAN INSPECTOR): Continue home amlodipine, labetalol Assessment & Plan (05/10/2021 1:21 AM CAN INSPECTOR): Continue home amlodipine, labetalol Assessment & Plan [...] 11/27/2018 Assessment & Plan (06/07/2021 2:27 PM CAN INSPECTOR): S/p renal transplant (2007, b/l Cr 2.7-3.4) [...] 06/21. Assessment & Plan (06/06/2021 2:52 PM CAN INSPECTOR): S/p renal transplant (2007, b/l Cr 2.7-3.4) [...] qday Assessment & Plan (06/05/2021 7:09 PM CAN INSPECTOR): S/p renal transplant (2007, b/l Cr 2.7-3.4) [...] monitoring Assessment & Plan (06/04/2021 9:52 AM CAN INSPECTOR): S/p renal transplant (2007, b/l Cr 2.7-3.4) [...] monitoring Assessment & Plan (06/03/2021 10:29 AM CAN INSPECTOR): S/p renal transplant (2007, b/l Cr 2.7-3.4) [...] monitoring Assessment & Plan (06/02/2021 12:55 PM CAN INSPECTOR): S/p renal transplant (2007, b/l Cr 2.7-3.4) [...] monitoring Assessment & Plan (06/01/2021 12:37 PM CAN INSPECTOR): S/p renal transplant (2007, b/l Cr 2.7-3.4) [...] monitoring Assessment & Plan (05/31/2021 8:40 AM CAN INSPECTOR): S/p renal transplant (2007, b/l Cr 2.7-3.4) [...] monitoring. Assessment & Plan (05/30/2021 10:52 AM CAN INSPECTOR): S/p renal transplant (2007, b/l Cr 2.7-3.4) [...] monitoring. Assessment & Plan (05/29/2021 1:36 PM CAN INSPECTOR): S/p renal transplant (2007, b/l Cr 2.7-3.4) [...] monitoring. Assessment & Plan (05/28/2021 10:53 AM CAN INSPECTOR): s/p renal transplant (2007, b/l Cr 2.7-3.4) [...] following/managing Assessment & Plan (05/27/2021 9:46 AM CAN INSPECTOR): s/p renal transplant (2007, b/l Cr 2.7-3.4) [...] following/managing Assessment & Plan (05/26/2021 5:11 PM CAN INSPECTOR): s/p renal transplant (2007, b/l Cr 2.7-3.4) [...] following/managing Assessment & Plan (05/15/2021 2:07 PM CAN INSPECTOR): ESRD 2/2 hypertensive nephrosclerosis s/p renal transplant (2007, b/l Cr 2.7- 3.4) Tacrolimus trough above goal, decreased dose 5mg bid Renal transplant service comanaging (nb home dose 9am/8pm) Home prednisone 5mg daily held while on dexamethasone Has been off myfortic (h/o bk/cmv viremia) Assessment & Plan (05/14/2021 3:22 PM CAN INSPECTOR): 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 hypertensive nephrosclerosis s/p renal transplant (2007, b/l Cr 2.7- 3.4) Tacrolimus trough above goal, decreased dose 5mg bid Renal transplant service comanaging (nb home dose 9am/8pm) Home prednisone 5mg daily held while on dexamethasone Has been off myfortic (h/o bk/cmv viremia) Assessment & Plan (05/13/2021 11:09 AM CAN INSPECTOR): ESRD 2/2 hypertensive nephrosclerosis s/p renal transplant (2007, b/l Cr 2.7- 3.4) Tacrolimus trough above goal, decreased dose 5mg bid Renal transplant service comanaging (nb home dose 9am/8pm) Home prednisone 5mg daily held while on dexamethasone Assessment & Plan (05/12/2021 12:01 PM CAN INSPECTOR): ESRD 2/2 hypertensive nephrosclerosis s/p renal transplant [...] following Assessment & Plan (05/11/2021 1:16 PM CAN INSPECTOR): ESRD 2/2 hypertensive nephrosclerosis s/p renal transplant [...] (12/05/2018 2:28 PM CDT): Renal transplant at [facility], followed now reportedly by Dr. Rome [...] with information in Care Everywhere from her tray delivery aide. She has not seen Dr. Ram yet. She has had 3 no shows. 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 Tac goal 4-7 per notes - BMP and tac trough on Friday per Transplant nephrology, [facility] and have faxed to PCP, script provided - Discharge today. I have paged her primary tray delivery aide office. I have faxed the d/c summary to her PCP as well. Assessment & Plan (12/04/2018 10:32 AM CDT): Renal transplant at [facility], followed now reportedly by Dr. Rome [...] with information in Care Everywhere from her tray delivery aide. She has not seen Dr. Ram yet. She has had 3 no shows. 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 Tac goal 4-7 per notes - Further mgmt of MARIBELL per nephrology. Assessment & Plan (12/03/2018 10:35 AM CDT): Renal transplant at [facility], followed now reportedly by Dr. Rome Ram although his clinic stated she has not been seen there and has no showed the last 3 clinic appts. - Patient has a second chart - Ronan Moreira with information in Care Everywhere from her tray delivery aide. She has not seen Dr. Ram yet. [...] (12/02/2018 12:03 PM CDT): Renal transplant at [facility], followed now reportedly by Dr. Rome [...] (12/01/2018 5:23 PM CDT): Renal transplant at [facility], followed now by Dr. Rome Ram. Reported baseline cr 1.3 - Transplant nephrology following, mgmt of immunosuppression per their team - Tac level in AM (low today) - Attempting to obtain records from Dr. Ram Assessment & Plan (11/30/2018 5:38 PM CDT): Renal transplant at [facility], followed now by Dr. Rome Ram. Reported baseline cr 1.3 - Transplant nephrology following, mgmt of immunosuppression per their team Acute on chronic diastolic (congestive) heart fa ilure 11/27/2018 Assessment & Plan (06/07/2021 2:28 PM CAN INSPECTOR): TTE (02/2021) with EF 70%, nl RV/LV size and systolic function and moderate pericardia effusion without collapse (managed conservatively with diuresis). -Repeat TTE with EF 70%, impaired relaxation and stable moderate pericardial effusion -Continue BP control and no signs of volume overload currently Assessment & Plan (06/06/2021 2:57 PM CAN INSPECTOR): TTE (02/2021) with EF 70%, nl RV/LV size and systolic function and moderate pericardia effusion without collapse (managed conservatively with diuresis). -Repeat TTE with EF 70%, impaired relaxation and stable moderate pericardial effusion -Continue BP control and no signs of volume overload currently Assessment & Plan (06/05/2021 7:15 PM CAN INSPECTOR): TTE (02/2021) with EF 70%, nl RV/LV size and systolic function and moderate pericardia effusion without collapse (managed conservatively with diuresis). -Repeat TTE with EF 70%, impaired relaxation and stable moderate pericardial effusion -Continue BP control and no signs of volume overload currently Assessment & Plan (06/04/2021 9:42 AM CAN INSPECTOR): TTE (02/2021) with EF 70%, nl RV/LV size and systolic function and moderate pericardia effusion without collapse (managed conservatively with diuresis). -Repeat TTE with EF 70%, impaired relaxation and stable moderate pericardial effusion -Continue BP control and no signs of volume overload currently Assessment & Plan (06/03/2021 10:27 AM CAN INSPECTOR): TTE (02/2021) with EF 70%, nl RV/LV size and systolic function and moderate pericardia effusion without collapse (managed conservatively with diuresis). -Repeat TTE with EF 70%, impaired relaxation and stable moderate pericardial effusion -Continue BP control and no signs of volume overload currently Assessment & Plan (06/02/2021 12:50 PM CAN INSPECTOR): TTE (02/2021) with EF 70%, nl RV/LV size and systolic function and moderate pericardia effusion without collapse (managed conservatively with diuresis). -Repeat TTE with EF 70%, impaired relaxation and stable moderate pericardial effusion -Continue BP control and no signs of volume overload currently Assessment & Plan (06/01/2021 12:32 PM CAN INSPECTOR): TTE (02/2021) with EF 70%, nl RV/LV size and systolic function and moderate pericardia effusion without collapse (managed conservatively with diuresis). -Repeat TTE with EF 70%, impaired relaxation and stable moderate pericardial effusion -Continue BP control and no signs of volume overload currently Assessment & Plan (05/31/2021 11:04 AM CAN INSPECTOR): TTE (02/2021) with EF 70%, nl RV/LV size and systolic function and moderate pericardia effusion without collapse (managed conservatively with diuresis). -Repeat TTE with EF 70%, impaired relaxation and stable moderate pericardial effusion -Continue BP control and no signs of volume overload currently Assessment & Plan (05/30/2021 10:47 AM CAN INSPECTOR): TTE (02/2021) with EF 70%, nl RV/LV size and systolic function and moderate pericardia effusion without collapse (managed conservatively with diuresis). -Repeat TTE with EF 70%, impaired relaxation and stable moderate pericardial effusion -Continue BP control and no signs of volume overload currently Assessment & Plan (05/29/2021 1:31 PM CAN INSPECTOR): TTE (02/2021) with EF 70%, nl RV/LV size and systolic function and moderate pericardia effusion without collapse (managed conservatively with diuresis). -Repeat TTE with EF 70%, impaired relaxation and stable moderate pericardial effusion -Continue BP control and no signs of volume overload currently Assessment & Plan (05/28/2021 10:49 AM CAN INSPECTOR): TTE (02/2021) with EF 70%, nl RV/LV size and systolic function and moderate pericardia effusion without collapse (managed conservatively with diuresis). Repeat TTE ordered Assessment & Plan (05/27/2021 9:46 AM CAN INSPECTOR): TTE (02/2021) with EF 70%, nl RV/LV size and systolic function and moderate pericardia effusion without collapse (managed conservatively with diuresis). Repeat TTE ordered Assessment & Plan (05/26/2021 5:20 PM CAN INSPECTOR): TTE (02/2021) with EF 70%, nl RV/LV [...] On review of 2nd chart patient's TTE 7/1 showed normal EF 67%, normal RV function, [...] Do not think TTE or HILLARY would exchange engineer at this time but patient would likely [...] Do not think TTE or HILLARY would exchange engineer at this time but patient would likely [...] Do not think TTE or HILLARY would exchange engineer at this time but patient would likely benefit from cardiology input as outpatient. NEREYDA on CPAP 11/27/2018 Assessment & Plan (12/30/2023 11:11 PM CDT): Cont CPAP Assessment & Plan (06/07/2021 2:28 PM CAN INSPECTOR): Pt uses home nightly CPAP Assessment & Plan (06/06/2021 2:58 PM CAN INSPECTOR): Pt uses home nightly CPAP Assessment & Plan (06/05/2021 7:15 PM CAN INSPECTOR): Pt uses home nightly CPAP Assessment & Plan (06/04/2021 9:49 AM CAN INSPECTOR): Pt uses home nightly CPAP Assessment & Plan (06/03/2021 10:29 AM CAN INSPECTOR): Pt uses home nightly CPAP Assessment & Plan (06/02/2021 12:54 PM CAN INSPECTOR): Pt uses home nightly CPAP Assessment & Plan (06/01/2021 12:36 PM CAN INSPECTOR): Pt uses home nightly CPAP Assessment & Plan (05/31/2021 11:07 AM CAN INSPECTOR): Pt uses home nightly CPAP Assessment & Plan (05/30/2021 10:50 AM CAN INSPECTOR): Pt uses home nightly CPAP Assessment & Plan (05/29/2021 1:34 PM CAN INSPECTOR): Pt uses home nightly CPAP Assessment & Plan (05/28/2021 10:50 AM CAN INSPECTOR): Pt uses home CPAP Assessment & Plan (05/27/2021 9:47 AM CAN INSPECTOR): Pt uses home CPAP Assessment & Plan (05/26/2021 5:15 PM CAN INSPECTOR): Pt uses home CPAP Assessment & Plan [...] HD Assessment & Plan (03/02/2023 11:59 AM CAN INSPECTOR): No signs of exacerbation. Last TTE done [...] ETOH. Assessment & Plan (05/15/2021 2:07 PM CAN INSPECTOR): Recent admission for pericardial effusion and volume overload. TTE with large pericardial effusion was seen by cardiology and thoracic surgery with plan for conservative management and diuresis Have not directly reimaged pericardial effusion thus far during admission Currently HDS, continue anti-hypertensives Holding Lasix as above Assessment & Plan (05/14/2021 3:23 PM CAN INSPECTOR): Recent admission for pericardial effusion and volume overload. TTE with large pericardial effusion was seen by cardiology and thoracic surgery with plan for conservative management and diuresis Have not directly reimaged pericardial effusion thus far during admission Currently HDS, continue anti-hypertensives Holding Lasix as above Assessment & Plan (05/13/2021 11:09 AM CAN INSPECTOR): Recent admission for pericardial effusion and volume overload. TTE with large pericardial effusion was seen by cardiology and thoracic surgery with plan for conservative management and diuresis -currently HDS, continue anti-hypertensives -holding diuretics as elsewhere Assessment & Plan (05/12/2021 12:01 PM CAN INSPECTOR): Recent admission for pericardial effusion and volume overload. TTE with large pericardial effusion was seen by cardiology and thoracic surgery with plan for conservative management and diuresis -currently HDS, continue anti-hypertensives -holding diuretics as elsewhere Assessment & Plan (05/11/2021 1:14 PM CAN INSPECTOR): Recent admission for pericardial effusion and volume [...] PM CDT): Patient's s/p DDKT at the [facility] in 2007. Of note patient has also been followed at [place], but most recently continues to follow her care at [facility] since 2016. -Cr somewhat improved with thomas catheter placement. Urology c/s; per their recommendations, d/c and attempt void trial. -Patient diuresed with 40 Lasix d/t volume overload, SOB; UOP 3.6L -BK pending, CMV and HLA negative -Thought to be d/t new diagnosis of heart failure Assessment & Plan (10/26/2018 6:35 PM CDT): Patient's s/p DDKT at the [facility] in 2007. Of note patient has also been followed at [place], but most recently continues to follow her care at [facility] since 2016. -Patient recently admitted in 08/2018 d/t MARIBELL, baseline Cr was 1.2-1.4 until 06/2018 where it has been found to be 2.2-2.8. She was evaluated by urology who recommended IR c/s; and the patient left the hospital AMA -She re-presents to [facility] 10/25 with MARIBELL, BLE edema, and SOB. [...] 10/25/2018 Assessment & Plan (03/02/2023 11:59 AM CAN INSPECTOR): Likely secondary to ESRD. Continue as planned under the ESRD - continue IV iron supplements q 2 weeks. - EPO 05900 units IV t.i.d. Friday on days not getting hemodialysis - CBC daily Assessment & Plan (06/07/2021 2:27 PM CAN INSPECTOR): Hgb on admission related to anemia of [...] bleed Assessment & Plan (06/05/2021 7:09 PM CAN INSPECTOR): Hgb on admission related to anemia of [...] bleed Assessment & Plan (06/04/2021 9:42 AM CAN INSPECTOR): Hgb on admission related to anemia of [...] bleed Assessment & Plan (06/03/2021 10:27 AM CAN INSPECTOR): Hgb on admission related to anemia of [...] bleed Assessment & Plan (06/02/2021 12:50 PM CAN INSPECTOR): Hgb on admission related to anemia of [...] bleed Assessment & Plan (06/01/2021 12:32 PM CAN INSPECTOR): Hgb on admission related to anemia of [...] bleed Assessment & Plan (05/31/2021 11:04 AM CAN INSPECTOR): Hgb on admission related to anemia of [...] AM Assessment & Plan (05/30/2021 10:45 AM CAN INSPECTOR): Hgb on admission related to anemia of CKD as well as component of HERNANDEZ. Baseline Hgb ~8 - Hgb matteo of 6.3 and s/p 1 unit PRBCs with improvement to ~7 since - Continue iron supplements - No signs/symptoms of bleeding, continue to monitor & transfuse Hgb <7 - Repeat iron panel/ferritin with AM labs Assessment & Plan (05/29/2021 1:29 PM CAN INSPECTOR): Hgb on admission related to anemia of CKD as well as component of HERNANDEZ. Baseline Hgb ~8 - Hgb matteo of 6.3 and s/p 1 unit PRBCs with improvement to ~7 since - Continue iron supplements - No signs/symptoms of bleeding, continue to monitor & transfuse Hgb <7 Assessment & Plan (05/28/2021 10:50 AM CAN INSPECTOR): S/p 1 unit pRBCs 05/26 Recent Labs Lab Units 05/28/21 0519 05/27/21 0433 05/26/21 1308 HEMOGLOBIN g/dL 7.7* 7.7* 7.7* Transfuse prn to keep Hgb>7 Anemia of chronic disease Hgb on admission related to anemia of CKD as well as component of HERNANDEZ. -continue iron supplements Assessment & Plan (05/27/2021 9:47 AM CAN INSPECTOR): S/p 1 unit pRBCs 05/26 Recent Labs Lab Units 05/27/21 0433 05/26/21 1308 05/26/21 0415 HEMOGLOBIN g/dL 7.7* 7.7* 6.3* Transfuse prn to keep Hgb>7 Anemia of chronic disease Hgb on admission related to anemia of CKD as well as component of HERNANDEZ. -continue iron supplements Assessment & Plan (05/26/2021 5:15 PM CAN INSPECTOR): S/p 1 unit pRBCs 05/26 Recent Labs Lab Units 05/26/21 1308 05/26/21 0415 HEMOGLOBIN g/dL 7.7* 6.3* Transfuse prn to keep Hgb>7 Anemia of chronic disease Hgb on admission related to anemia of CKD as well as component of HERNANDEZ. -continue iron supplements Assessment & Plan (05/14/2021 3:24 PM CAN INSPECTOR): Hgb 9.2. Baseline ~8-9 related to anemia of CKD as well as component of HERNANDEZ. -continue iron supplements Assessment & Plan (05/10/2021 1:19 AM CAN INSPECTOR): Hgb 9.2. Baseline ~8-9 related to anemia [...] has heart failure, which is likely a skip load driver of her volume overload. Plan - [...] 11:39 AM CDT): -s/p DDKT 2007 at [facility] -Immunosuppression: cont tacrolimus 7mg QAM/6mg QPM, prednisone 5. She states she has not been on CellCept or Myfortic since 2007 or 2008. - Renal transplant in agreement with d/c today - Tac trough adequate Assessment & Plan (10/27/2018 4:48 PM CDT): -s/p DDKT 2007 at [facility] -Immunosuppression: cont tacrolimus 7mg QAM/6mg QPM, prednisone 5. She states she has not been on CellCept or Myfortic since 2007 or 2008. - Check tac trough - Followed by renal transplant service Assessment & Plan (10/26/2018 2:45 PM CDT): -s/p DDKT 2007 at [facility] -Immunosuppression: cont tacrolimus 7mg QAM/6mg QPM, prednisone 5. She states she has not been on CellCept or Myfortic since 2007 or 2008. - Check tac trough - Followed by renal transplant service Assessment & Plan (10/25/2018 3:31 AM CDT): -s/p DDKT 2007 at [facility] -Immunosuppression: cont tacrolimus 7mg QAM/6mg QPM, [...] PTH: 174, 162, End stage renal disease ([facility]) Assessment & Plan (01/01/2024 9:47 AM CDT): [...] Resolved Date ESRD (end stage renal disease) ([facility]) 03/01/2023 04/21/2023 Assessment & Plan (03/02/2023 11:58 AM CAN INSPECTOR): Pt was not able to get HD 03/01/23 due to verbal altercation at HD center. She presented to [facility] for urgent HD which she tolerated. SW on consult to help find additional facility. Per EMR Hx of Kidney transplant for ESRD in the setting of HTN 2009 preformed at [facility]. Her transplant unfortunately failed due to recurrent [...] being evaluated for additional kidney transplant at [facility]. Left radiocephalic AV fistula, per vascular team Fistula duplex needed in future and will probably warrant fistulogram. - Continue EPO, calcitriol, folic acid, IV iron q2 weeks, - HD today per nephrology, Friday and Friday - SW Consult to help with alternative HD arrangement, Pt would like to be seen at . - Continue tacrolimus with trough levels as needed, Prednisone 5mg daily. - Lokelma as needed for HyperK - Daily CBC, CMP, mag, phos - Kidney Imaging as needed. - Avoid nephrotoxic drugs - Nephrology following appreciate recs. - Follow up with transplant team at [facility] on discharge for continued workup for kidney transplant. Constipation 05/31/2021 03/03/2023 Assessment & Plan (03/02/2023 12:00 PM CAN INSPECTOR): Patient reports chronic constipation and has not have a bowel movement since Friday. Abdominal x-ray showed mild to moderate amount of stool in colon and no obstructive bowel pattern noted. Patient has allergy to MiraLax and Dulcolax base which cause muscle pain. - s/p x2 lactulose will continue as needed to help with BM. - Dulcolax daily Assessment & Plan (06/01/2021 12:32 PM CAN INSPECTOR): Now resolved, will discontinue lactulose and continue PRN meds Assessment & Plan (05/31/2021 11:05 AM CAN INSPECTOR): Reports no bowel movement since 05/27 -Will start lactulose BID today (miralax allergy) and continue scheduled docusate-senna -If no BM by this evening then can use PRN suppository that's ordered History of COVID-19 05/29/2021 06/05/19 Assessment & Plan (06/04/2021 9:42 AM CAN INSPECTOR): Positive on 05/10/21 during prior admission and briefly required O2 at that time, but was weaned off prior to discharge. S/p remdesivir and dexamethasone during that admit. Stable on room air this admission and now COVID recovered Assessment & Plan (06/03/2021 10:28 AM CAN INSPECTOR): Positive on 05/10/21 during prior admission and briefly required O2 at that time, but was weaned off prior to discharge. S/p remdesivir and dexamethasone during that admit. Stable on room air this admission and now COVID recovered Assessment & Plan (06/02/2021 1:01 PM CAN INSPECTOR): Positive on 05/10/21 during prior admission and briefly required O2 at that time, but was weaned off prior to discharge. S/p remdesivir and dexamethasone during that admit -Stable on room air this admission and now COVID recovered Assessment & Plan (06/01/2021 12:35 PM CAN INSPECTOR): -Positive on 05/10/21 during prior admission and [...] today Assessment & Plan (05/31/2021 11:06 AM CAN INSPECTOR): -Positive on 05/10/21 during prior admission and [...] now Assessment & Plan (05/30/2021 10:48 AM CAN INSPECTOR): -Positive on 05/10/21 during prior admission and [...] 3 Assessment & Plan (05/31/2021 11:02 AM CAN INSPECTOR): Now resolved, secondary to MARIBELL on CKD, K of 7.9 w/ EKG changes on admit - S/p iHD overnight and has been off [employer] since 05/26 and making good urine - K continues to remain normal - Lokelma has been discontinued Assessment & Plan (05/30/2021 10:43 AM CAN INSPECTOR): Now resolved, secondary to MARIBELL on CKD, K of 7.9 w/ EKG changes on admit - S/p iHD overnight and has been off B[employer] since 05/26 and making good urine - K continues to remain normal - Lokelma was discontinued Assessment & Plan (05/29/2021 1:22 PM CAN INSPECTOR): Secondary to MARIBELL on CKD, K of 7.9 w/ EKG changes in am at OSH. S/p temporization prior to transfer - S/p iHD overnight and has been off BAND [employer] since 05/26 and making good urine - K normal at 4.6, Lokelma has been held - Will monitor closely for iHD needs. Assessment & Plan (05/28/2021 10:51 AM CAN INSPECTOR): - Noted 7.9 w/ EKG changes in am at OSH. - S/p medical temporization with 6.9 upon d/c from OSH to [facility]. - K now down to 5.8 s/p temporization but overnight went upto 6.8. - S/p iHD overnight - Will monitor closely for iHD needs. - Monitor closely. Assessment & Plan (05/27/2021 9:49 AM CAN INSPECTOR): - Noted 7.9 w/ EKG changes in am at OSH. - S/p medical temporization with 6.9 upon d/c from OSH to [facility]. - K now down to 5.8 s/p temporization but overnight went upto 6.8. - S/p iHD overnight - Will monitor closely for iHD needs. - Monitor closely. Assessment & Plan (05/26/2021 5:07 PM CAN INSPECTOR): - Noted 7.9 w/ EKG changes in am at OSH. - S/p medical temporization with 6.9 upon d/c from OSH to [facility]. - K now down to 5.8 s/p temporization but overnight went upto 6.8. - S/p iHD overnight. - Will monitor closely for iHD needs. - Monitor closely. Renal lesion 05/12/2021 06/03/2021 Assessment & Plan (06/02/2021 12:57 PM CAN INSPECTOR): Admission UA was negative for infection and [...] drainage/sampling Assessment & Plan (05/30/2021 10:51 AM CAN INSPECTOR): Per sign-out, patient does not have complicated [...] UA Assessment & Plan (05/29/2021 1:34 PM CAN INSPECTOR): Per sign-out, patient does not have complicated UTI symptoms or evidence of infection on UA. However, Renal Transplant with duplex 05/25 showed no NENITA but new mild hydro and focal heterogenous echogenic area concerning for developing abscess. Pt had no sxs of dysuria; renal tx team has low suspicion for UTI Urine is clear/light 05/27 Assessment & Plan (05/28/2021 10:49 AM CAN INSPECTOR): Per sign-out, patient does not have complicated UTI symptoms or evidence of infection on UA. However, Renal Transplant with duplex 05/25 showed no NENITA but new mild hydro and focal heterogenous echogenic area concerning for developing abscess. Pt had no sxs of dysuria; renal tx team has low suspicion for UTI Urine is clear/light 05/27 Assessment & Plan (05/27/2021 9:47 AM CAN INSPECTOR): Per sign-out, patient does not have complicated UTI symptoms or evidence of infection on UA. However, Renal Transplant with duplex 05/25 showed no NENITA but new mild hydro and focal heterogenous echogenic area concerning for developing abscess. Pt had no sxs of dysuria; renal tx team has low suspicion for UTI Urine is clear/light 05/27 Assessment & Plan (05/26/2021 5:23 PM CAN INSPECTOR): Per sign-out, patient does not have complicated UTI symptoms or evidence of infection on UA. However, Renal Transplant with duplex 05/25 showed no NENITA but new mild hydro and focal heterogenous echogenic area concerning for developing abscess. No Urine culture found this admission. Will order. Assessment & Plan (05/14/2021 3:22 PM CAN INSPECTOR): Pyuria at osh, no culture data available S/p empiric rx with ceftriaxone out of abundance of caution, finished Assessment & Plan (05/13/2021 11:09 AM CAN INSPECTOR): Pyuria at osh, no culture data available On empiric rx with ceftriaxone Culture here no growth but has been on abx Plan to finish course of therapy, abx d#4 today Assessment & Plan (05/12/2021 12:04 PM CAN INSPECTOR): Pyuria at osh, no culture data available On empiric rx with ceftriaxone Culture here no growth but has been on abx Plan to finish course of therapy, abx d#3 today Pericardial effusion 02/28/2021 022 Assessment & Plan (06/04/2021 9:50 AM CAN INSPECTOR): TTE (02/2021) with EF 70%, nl RV/LV [...] compromise Assessment & Plan (06/01/2021 12:36 PM CAN INSPECTOR): TTE (02/2021) with EF 70%, nl RV/LV [...] compromise Assessment & Plan (05/31/2021 11:07 AM CAN INSPECTOR): TTE (02/2021) with EF 70%, nl RV/LV [...] compromise Assessment & Plan (05/30/2021 10:51 AM CAN INSPECTOR): TTE (02/2021) with EF 70%, nl RV/LV [...] compromise Assessment & Plan (05/29/2021 1:37 PM CAN INSPECTOR): TTE (02/2021) with EF 70%, nl RV/LV [...] compromise Assessment & Plan (05/28/2021 10:49 AM CAN INSPECTOR): TTE (02/2021) with EF 70%, nl RV/LV [...] ordered Assessment & Plan (05/27/2021 9:48 AM CAN INSPECTOR): TTE (02/2021) with EF 70%, nl RV/LV [...] ordered Assessment & Plan (05/26/2021 5:19 PM CAN INSPECTOR): TTE (02/2021) with EF 70%, nl RV/LV [...] each problem. ESRD (end stage renal disease) ([facility]) 11/27/2018 04/21/2023 Acute exacerbation of CHF (c ongestive heart failure) ([facility]) 11/27/2018 12/02/2018 Assessment & Plan (11/28/2018 1:14 [...] injury superimp osed on chronic kidney disease ([facility]) 10/25/2018 06/07/2021 Assessment & Plan (06/07/2021 2:26 PM CAN INSPECTOR): History of ESRD 2/2 hypertensive nephrosclerosis s/p [...] downtrend Assessment & Plan (06/06/2021 2:51 PM CAN INSPECTOR): History of ESRD 2/2 hypertensive nephrosclerosis s/p [...] baseline Assessment & Plan (06/05/2021 7:08 PM CAN INSPECTOR): History of ESRD 2/2 hypertensive nephrosclerosis s/p [...] baseline Assessment & Plan (06/04/2021 9:42 AM CAN INSPECTOR): History of ESRD 2/2 hypertensive nephrosclerosis s/p [...] baseline Assessment & Plan (06/03/2021 10:26 AM CAN INSPECTOR): History of ESRD 2/2 hypertensive nephrosclerosis s/p [...] baseline Assessment & Plan (06/02/2021 1:00 PM CAN INSPECTOR): History of ESRD 2/2 hypertensive nephrosclerosis s/p [...] now Assessment & Plan (06/01/2021 12:30 PM CAN INSPECTOR): History of ESRD 2/2 hypertensive nephrosclerosis s/p [...] today Assessment & Plan (05/31/2021 11:03 AM CAN INSPECTOR): History of ESRD 2/2 hypertensive nephrosclerosis s/p [...] BMP Assessment & Plan (05/30/2021 10:44 AM CAN INSPECTOR): History of ESRD 2/2 hypertensive nephrosclerosis s/p [...] yesterday Assessment & Plan (05/29/2021 1:27 PM CAN INSPECTOR): History of ESRD 2/2 hypertensive nephrosclerosis s/p [...] yesterday Assessment & Plan (05/28/2021 10:48 AM CAN INSPECTOR): 65F with history of ESRD 2/2 hypertensive nephrosclerosis s/p renal transplant (2007, b/l Cr 2.7-3.4), anemia of CKD, NEREYDA on CPAP, HFpEF transferred from OSH to [facility] for acute kidney failure and hyperkalemia. s/p [...] 2.62* Assessment & Plan (05/27/2021 9:45 AM CAN INSPECTOR): 65F with history of ESRD 2/2 hypertensive nephrosclerosis s/p renal transplant (2007, b/l Cr 2.7-3.4), anemia of CKD, NEREYDA on CPAP, HFpEF transferred from OSH to [facility] for acute kidney failure and hyperkalemia. s/p [...] pending. Assessment & Plan (05/26/2021 5:06 PM CAN INSPECTOR): 65F with history of ESRD 2/2 hypertensive nephrosclerosis s/p renal transplant (2007, b/l Cr 2.7-3.4), anemia of CKD, NEREYDA on CPAP, HFpEF transferred from OSH to [facility] for acute kidney failure and hyperkalemia. s/p [...] pending. Assessment & Plan (05/15/2021 2:07 PM CAN INSPECTOR): Admit creatinine 6.1, baseline 2.7-3.4 in recent [...] dosing Assessment & Plan (05/14/2021 3:21 PM CAN INSPECTOR): Admit creatinine 6.1, baseline 2.7-3.4 in recent [...] dosing Assessment & Plan (05/13/2021 11:07 AM CAN INSPECTOR): Admit creatinine 6.1, baseline 2.7-3.4 in recent [...] tacro Assessment & Plan (05/12/2021 11:57 AM CAN INSPECTOR): Admit creatinine 6.1, baseline 2.7-3.4 in recent months Noted 6-7 days poor intake prior to arrival Some improvement thus far w fluids Still poor intake CMV neg Metabolic acidosis worsening in spite of oral bicarb Plan small fluids/bicarb infusion today, cont oral bicarb Monitor response w repeat BMP in AM Assessment & Plan (05/11/2021 1:29 PM CAN INSPECTOR): Baseline Cr 2.7-3.4. On admission at OSH [...] to 2.8 since June 2018. Ultrasound at [facility] on 08/26 showed severe hydronephrosis of the [...] 04/21/2023 Assessment & Plan (03/02/2023 11:58 AM CAN INSPECTOR): Blood pressure is controlled - continue amlodipine 10 mg daily, labetalol 200 mg t.i.d., Lasix 40 mg b.i.d.. Assessment & Plan (06/07/2021 2:27 PM CAN INSPECTOR): - Continue home amlodipine & labetalol Assessment & Plan (06/06/2021 2:53 PM CAN INSPECTOR): - Continue home amlodipine & labetalol Assessment & Plan (06/05/2021 7:09 PM CAN INSPECTOR): - Continue home amlodipine & labetalol Assessment & Plan (06/04/2021 9:48 AM CAN INSPECTOR): Restarted home Amlodipine & Labetalol, blood pressure within goal Assessment & Plan (06/03/2021 10:28 AM CAN INSPECTOR): Restarted home Amlodipine & Labetalol, blood pressure within goal Assessment & Plan (06/02/2021 12:53 PM CAN INSPECTOR): Improving BP -Restarted home Amlodipine & Labetalol Assessment & Plan (06/01/2021 12:35 PM CAN INSPECTOR): Improving BP -Restarted home Amlodipine & Labetalol Assessment & Plan (05/31/2021 11:06 AM CAN INSPECTOR): Improving BP -Restarted home Amlodipine yesterday and will resume home Labetalol today Assessment & Plan (05/30/2021 10:49 AM CAN INSPECTOR): Currently BP at goal and has improved -Will restart home Amlodipine 10 mg qday today and continue to hold Labetolol for now Assessment & Plan (05/29/2021 1:32 PM CAN INSPECTOR): Currently BP at goal -Labetolol and amlodipine both on hold due to softer pressures on admit, resume as tolerated Assessment & Plan (05/28/2021 10:50 AM CAN INSPECTOR): Currently, BP near goal Labetolol and amlodipine both on hold monitor and titrate meds. BP at goal 05/27, 05/28 Assessment & Plan (05/27/2021 9:47 AM CAN INSPECTOR): Currently, BP near goal Labetolol and amlodipine both on hold monitor and titrate meds. BP at goal 05/27 Assessment & Plan (05/26/2021 5:13 PM CAN INSPECTOR): Currently, BP near goal Labetolol and amlodipine [...] 04/21/2023 Assessment & Plan (03/02/2023 12:00 PM CAN INSPECTOR): Will continue home CPAP. Assessment & Plan (05/14/2021 3:23 PM CAN INSPECTOR): Continue home CPAP (though has been using O2 instead) Assessment & Plan (05/10/2021 1:21 AM CAN INSPECTOR): Continue home CPAP Assessment & Plan (10/26/2018 [...] Type 2 diabetes mellitus wit hout complication ([facility]) 09/05/2017 10/18/2022 Encounters Date Type Department Care Team Description 06/15/2024 Orders Only [facility] Nephrology [address] [facility] [address] [place] [address] [place] [address] Bruce Justice MD 05/27/2024 Telephone [facility] Urology [address] [place] [address] Office [facility] [address] [place] [address] Suha Marks LPN 05/26/2024 Telephone [facility] Urology [address] [place] [address] [place] [phone] Suha Marks LPN 05/24/2024 5:50 PM CAN INSPECTOR Anesthesia Event Operating Room [address] [place] [address] Sloan Osborn MD Heuvelman, Katherine Marie, NP 05/11/2024 Orders Only [facility] Nephrology [address] [facility] [address] [place] [address] [place] [address] Bruce Justice MD 04/08/2024 Orders Only [facility] Nephrology [address] [facility] [address] [place] [address] [place] [address] Bruce Justice MD 04/05/2024 Orders Only [facility] Urology [address] [place] [address] [address] [place] [phone] Timi Hernandez MD Obstruction of right ureter (Primary Dx) 04/02/2024 Telephone [facility] Kidney [address] [facility] [address] Mailstop [phone] [place] [address] Chelo Herzog RN from Last 3 Months Immunizations Immunization Administration Dates Next Due Hep B Vaccine 06/04/2006,05/07/2006,03/28/2006 Pfizer SARS-CoV-2 Monovalent Vaccination (12+ Yrs) ASHLEY-READY TO USE 12/12/2021,08/23/2021,07/26/2021 Pfizer Sars-Cov-2 Bivalent V accination (12+ YRS) 03/19/2022 Tdap 08/29/2016 Surgical History Surgery Date Site/Laterality Comments CHOLECYSTECTOMY 04/28/2007 - 04/27/2008 TUBAL LIGATION 04/28/1987 - 04/27/1988 COLONOSCOPY 04/10/2021 ESOPHAGOGASTRODUODENOSCOPY 04/10/2021 HERNIA REPAIR 04/28/2007 - 04/27/2008 abdominal US GUIDED BIOPSY RENAL 06/13/2020 N/A KIDNEY TRANSPLANT 08/27/2007 - 09/26/2007 ASPIRATION OF ABSCESS HEMATOMA CYST 06/04/2021 N/A AV FISTULA PLACEMENT 04/28/2005 - 04/27/2006 Left URETERAL STENT PLACEMENT 01/21/2024 Right multiple with exchanges, most recently 09/03/2023(22) MULTIPLE TOOTH EXTRACTIONS 04/19/2023 AV FISTULA PLACEMENT 02/11/2024 OTHER SURGICAL HISTORY 01/05/2024 fistulagram Medical History Medical History Date Comments NEREYDA (obstructive sleep apnea) We ars CPAP PUD (peptic ulcer disease) Anemia Adenomatous colon polyp Hyperlipidemia Obesity Peptic ulceration Vitamin D deficiency Kidney transplant recipient Kristine-Manzano tear 2017 Renal disorder s/p transplant End stage renal disease ([facility] s/p transplant/ Dialysis Fri//Sat [facility] in [place], [place] Ureteral obstruction, right Hypertension Chronic kidney disease Claustrophobia Hx of arteriovenostomy for r enal dialysis ([facility]) ([facility]) 3 times a week Fri, , an d Friday Family History Medical History Relation Name Comments Hypertension Father Hyperlipidemia Mother Hypertension Mother Stroke Mother Hypertension Sister Anesthesia problems Neg Hx Malig Hypertension Neg Hx Malig Hyperthermia Neg Hx Pseudochol deficiency Neg Hx Relation Name Status Comments Father Mother Sister Social History Tobacco Use Types Packs/Day Years Used Date Smoking Tobacco: Former Cigarettes 0.4 15.2 2 008 - 06/2022 Passive Smoke Exposure: Past Smokeless Tobacco: Never Tobacco Cessation:Counseling Given: Not Answered Alcohol Use Standard Drinks/Week Comments Never 0 (1 standard drink = 0.6 oz pur e alcohol) [facility] Utilities Answer Date Recorded In the past 12 months has th e electric, gas, oil, or water company threatened to shut off services in your [...] declined 01/01/2024 How often do you attend muslim or shinto serv ices? Patient declined 01/01/2024 Do you belong to any clubs o r organizations such as muslim groups, unions, fraternal or athletic groups, or [...] place to sleep or slept in a fpc (including now)? No 04/23/2023 Housing Stability Vital [...] any time in the past 12 m [facility], were you homeless or living in a fpc (including now)? Patient declined 01/01/2024 Personal Safety [...] 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, [employer], [employer]) 03/03/2023 Comments No Sex and Gender Information Value Date Recorded Sex Assigned at Not on file Legal Sex Female 1:10 PM CAN INSPECTOR Gender Identity Not on file Sexual Orientation Not on file Obstetrics History Para Term AB IAB SAB Ectopic Multiple Livin g Live Births 9 1 1 0 7 0 5 0 1 1 Date Outcome GA Total Labor Labor/2nd/3rd Weight Sex Type Anes PTL Nancy A1 A5 Name Clin SAB D&C Demise SAB D&C Demise SAB D&C Demise SAB D&C Demise SAB D&C Demise AB AB 01/17 Term 3.6 kg (7 lb 15 oz) M Vag-S pont Epidura l Living Complications:None Comments Pt reports 4-[address], cannot remember the exact number. All managed with D&C Last Filed Vital Signs Vital Sign Reading Time Taken Comments Blood Pressure 117/70 02/13/2024 9:20 PM CDT Pulse 79 02/13/2024 7:00 PM CDT Temperature 36.7 C (98.1 F) 02/13/2024 9:20 PM CDT Respiratory Rate 18 02/13/2024 7:00 PM CDT Oxygen Saturation 100% 02/13/2024 4:16 PM CDT Inhaled Oxygen Concentration - - Weight 87.1 kg (192 lb) 05/05/2024 3:16 PM CAN INSPECTOR Height 162.6 cm (5' 4 ) 05/05/2024 3:16 PM CAN INSPECTOR Body Mass Index 32.96 05/05/2024 3:16 PM CAN INSPECTOR Plan of Treatment Health Maintenance Due Date Last Done Comments Colon Cancer Screening-Colonoscopy 1955 Pneumococcal vaccine 65+ (1 of 2 - PCV) 09/06/1974 Zoster Vaccine (1 of 2) 09/06/1974 Well Visit 65+ 09/06/2020 Breast Cancer Screening-Mammogram 12/18/2022 12/18/2021, 12/18/2021, 02/22/2021, Additional history exists Osteoporosis Screening-Bone Density Scan 02/19/2023 02/19/2021, 02/19/2021 Covid-19 Vaccine ( - 2023-2 5 season) 2023 03/19/2022, 12/12/2021, 08/23/2021, Additional history exists Influenza Vaccine (#1) 2023 Depression Screening 03/13/2024 03/13/2023, 04/04/20 21 Fall Risk Assessment 12/30/2024 12/31/2023 DTaP/Tdap/Td Vaccine (2 - Td or Tdap) 08/29/2026 08/29/2016 Hepatitis C Screening Completed 12/03/2023 , 04/22/2023, 08/09/2022, Additional history exists Hepatitis B Screening Completed 02/13/2024 , 06/04/2006, 05/07/2006, Additional history exists Medical Devices Implanted Type Area Industrial Green Systems Designer Device Identifier Shelf Expiration Date Model / Serial / Lot [employer] Universa 6fr 24cm Radiopaque Graduate Firm Monofilament Tether [id number] - Sn/A - [id number] Implanted:Qty: 1 on 05/08/2022 by Timi Hernandez MD at [facility] Stent Right: Ureter [employer] 02/15/2025 [id number] / N/A / [id number] [employer] Universa 6fr 24cm Radiopaque Graduate Firm [employer]ofil[employer] Tether [id number] - [id number] Implanted:Qty: 1 on 08/14/2022 by Timi Hernandez MD at [facility] Stent Right: Ureter [employer] 12/19/2024 [id number] / / [id number] [employer] Stent Ureteral Set Double Pigtail Radiopaque Tip Universa [id number] Polyurethane Hydrophilic Coated H91425 - [id number] Implanted:Qty: 1 on 09/03/[address] [facility] Right: Ureter [employer] 10/16/2025 [id number] / / [id number] [employer] Stent Ureteral Set Double Pigtail Radiopaque Tip Universa [id number] Polyurethane Hydrophilic Coated [id number] - [id number] Implanted:Qty: 1 on 01/21/[address] [facility] Right: Ureter [employer] 07/02/2024 [id number] / / [id number] Explanted Type Area Industrial Green Systems Designer Device Identifier Shelf Expiration Date Model / Serial / Lot Infopia Maddi [id number] 4.8fr 14cm Taper Tip Bladder Raoul Low Profile Large Inner Lumen Latex Free - [id number] Implanted:Qty: 1 on 11/28/2018 by Timi Hernandez MD at [facility] Explanted:Qty: 1 on 02/08/2019 by Ricardo Pineda MD at [facility] Stent N/A: Ureter [employer] [id number] 07/15/2019 [id number] / / [id number] Description:Transplant kidne y ureter; stent intact [employer] [id number] 4.8fr 14cm Taper Tip Bladder Raoul Low Profile Large Inner Lumen Latex Free - [id number] - [id number] Implanted:Qty: 1 on 02/08/2019 by Ricardo Pineda MD at [facility] Explanted:Qty: 1 on 05/03/2019 by Blaire Miller MD at [facility] Stent Right: Ureter [employer] 06/18/2020 [id number] / [id number] / [employer] [id number] 4.8fr 14cm Taper Tip Bladder Raoul Low Profile Large Inner Lumen Latex Free - [id number] Implanted:Qty: 1 on 05/03/2019 by Blaire Miller MD at [facility] Explanted:Qty: 1 on 09/13/2019 by Timi Hernandez MD at [facility] Stent Ureter [employer] [id number] 08/09/2021 [id number] / / [id number] [employer] [id number] Inlay [place] 4.7fr 14cm Pusher Fluoro Marker Atraumatic Insertion Latex Free - [id number] Implanted:Qty: 1 on 03/08/2020 by Timi Hernandez MD at [facility] Explanted:Qty: 1 on 01/31/2021 by Timi Hernandez MD at [facility] Stent Right: Ureter [employer] 11/27/2021 [id number] / / [id number] [employer] [id number] Set Stent 14cm 4.7fr [place] Mandril Small 2 Pigtail Curve - [id number] - [id number] Implanted:Qty: 1 on 08/23/2020 by Timi Hernandez MD at [facility] Explanted:Qty: 1 on 01/31/2021 by Timi Hernandez MD at [facility] Stent Right: Ureter [employer] 05/23/2023 [id number] / [id number] / [id number] [employer] [id number] Set Stent 14cm 4.7fr [place] Mandril Small 2 Pigtail Curve - [id number] Implanted:Qty: 1 on 11/15/2020 by Timi Hernandez MD at [facility] Explanted:Qty: 1 on 01/31/2021 by Timi Hernandez MD at [facility] Stent Right: Ureter [employer] 09/20/2023 [id number] / / [id number] [employer] [id number] Inlay [place] 6fr 24cm Pusher Fluoro Marker Atraumatic Insertion Latex Free - [id number] Implanted:Qty: 1 on 06/05/2021 by Gary Urban MD at [facility] Explanted:Qty: 1 on 11/14/2021 by Timi Hernandez MD at [facility] Stent Right: Ureter [employer] [id number] 10/24/2025 [id number] / / [id number] [employer] Universa 6fr 24cm Radiopaque Graduate Firm Monofilament Tether [id number] - [id number] Implanted:Qty: 1 on 11/14/2021 by Timi Hernandez MD at [facility] Explanted:Qty: 1 on 02/13/[address] [facility] Stent Right: Ureter [employer] 07/19/2024 [id number] / / [id number] [employer] Universa 6fr 24cm Radiopaque Graduate Firm [employer]ether [id number] - [id number] Implanted:Qty: 1 on 02/13/2022 by Timi Hernandez MD at [facility] Explanted:Qty: 1 on 05/08/2022 by Timi Hernandez MD at [facility] Stent [employer] 10/08/2024 [id number] / / [id number] [employer] Universa 6fr 20cm Radiopaque Positioner Monofilament Tether 2 [id number] - [id number] - [id number] Implanted:Qty: 1 on 11/06/2022 by Timi Hernandez MD at [facility] Explanted:Qty: 1 on 03/17/2023 by Carson Gatica DO at [facility] Stent Right: Ureter [employer] 02/18/2025 [id number] / [id number] / [id number] [employer] Universa 6fr 20cm Radiopaque Positioner Monofilament Tether 2 [id number] - Sn/A - [id number] Implanted:Qty: 1 on 06/04/2023 by Timi Hernandez MD at [facility] Explanted:Qty: 1 on 01/21/2024 by Neel Rodriguez MD at [facility] Stent Right: Ureter [employer] 07/02/2024 [id number] / N/A / [id number] Description:Implant pause co mpleted prior to opening implant on sterile field [employer] [id number] 4.8fr 16cm Taper Tip Bladder Raoul Low Profile Large Inner Lumen Latex Free - [id number] Implanted:Qty: 1 on 09/13/2019 by Timi Hernandez MD at [facility] Explanted:Qty: 1 on 03/08/[address] [facility] Right: Ureter [employer] 09/28/2020 [id number] / / [employer] [id number] Inlay [place] 4.7fr 14cm Pusher Fluoro Marker Atraumatic Insertion Latex Free - [id number] Implanted:Qty: 1 on 12/08/2019 by Timi Hernandez MD at [facility] Explanted:Qty: 1 on 06/07/2020 by Timi Hernandez MD at [facility] Right: Ureter [employer] 11/27/2021 [id number] / / [id number] [employer] [id number] Inlay [place] 4.7fr 14cm Pusher Fluoro Marker Atraumatic Insertion Latex Free - [id number] Implanted:Qty: 1 on 06/07/2020 by Timi Hernandez MD at [facility] Explanted:Qty: 1 on 01/31/2021 by Timi Hernandez MD at [facility] Right: Ureter [employer] 11/27/2021 [id number] / / [id number] [employer] [id number] Set Stent 14cm 4.7fr [place] Mandril Small 2 Pigtail Curve - [id number] Implanted:Qty: 1 on 01/31/2021 by Timi Hernandez MD at [facility] Explanted:Qty: 1 on 06/05/2021 by Gary Urban MD at [facility] Urethra [employer] [id number] 07/15/2022 [id number] / / [id number] Description:Intact and compl ete [employer] Universa 6fr 20cm Radiopaque Positioner Monofilament Tether 2 [id number] - [id number] Implanted:Qty: 1 on 03/17/2023 by Carson Gatica DO at [facility] Explanted:Qty: 1 on 06/04/2023 by Timi Hernandez MD at [facility] Right: Ureter [employer] [id number] 10/24/2025 [id number] / / [id number] Procedures Procedure Name Priority Date/Time Associated Diagnosis Comments TACROLIMUS, HIGHLY SENSITIVE, LC/MS/MS Routine 06/15/2024 10:01 AM CAN INSPECTOR PROTEIN / CREATININE RATIO, URINE, RANDOM Routine 06/15/2024 10:01 AM CAN INSPECTOR RENAL FUNCTION PANEL Routine 06/15/2024 10:01 AM CAN INSPECTOR CBC WITH AUTO DIFFERENTIAL Routine 06/15/2024 10:01 AM CAN INSPECTOR COPY(IES) SENT TO: Routine 06/15/2024 10:01 AM CAN INSPECTOR BK VIRUS, DNA, QUANTITATIVE Routine 06/15/2024 10:01 AM CAN INSPECTOR CYTOMEGALOVIRUS (CMV) DNA, QUANT GEN LAB Routine 06/15/2024 10:01 AM CAN INSPECTOR PROTEIN / CREATININE RATIO, URINE, RANDOM Routine 05/11/2024 8:55 AM CAN INSPECTOR RENAL FUNCTION PANEL Routine 05/11/2024 8:55 AM CAN INSPECTOR TACROLIMUS, HIGHLY SENSITIVE, LC/MS/MS Routine 05/11/2024 8:55 AM CAN INSPECTOR CBC WITH AUTO DIFFERENTIAL Routine 05/11/2024 8:55 AM CAN INSPECTOR COPY(IES) SENT TO: Routine 05/11/2024 8: 55 AM CAN INSPECTOR CYTOMEGALOVIRUS (CMV) DNA, QUANT GEN LAB Routine 05/11/2024 8:55 AM CAN INSPECTOR BK VIRUS, DNA, QUANTITATIVE Routine 05/11/2024 8:55 AM CAN INSPECTOR PROTEIN / CREATININE RATIO, URINE, RANDOM Routine 04/08/2024 9:41 AM CAN INSPECTOR TACROLIMUS, HIGHLY SENSITIVE, LC/MS/MS Routine 04/08/2024 9:41 AM CAN INSPECTOR RENAL FUNCTION PANEL Routine 04/08/2024 9:41 AM CAN INSPECTOR CBC WITH AUTO DIFFERENTIAL Routine 04/08/2024 9:41 AM CAN INSPECTOR COPY(IES) SENT TO: Routine 04/08/2024 9: 41 AM CAN INSPECTOR CYTOMEGALOVIRUS (CMV) DNA, QUANT GEN LAB Routine 04/08/2024 9:41 AM CAN INSPECTOR BK VIRUS, DNA, QUANTITATIVE Routine 04/08/2024 9:41 AM CAN INSPECTOR HEPATITIS PANEL, ACUTE STAT 10:00 AM CDT PYELOGRAM - RETROGRADE Obstruction of right ureter Hydronephrosis, right Case Notes 05/21@1125- 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 No definitive therapeutic or toxic ranges have been established. Optimal blood drug levels are influenced by type of transplant, patient response, time post- transplant, co-administration of other drugs, and drug formulation. The following trough range is a suggested guideline: 5.0-20.0 mcg/L. 06/15/2024 10:0 1 AM CAN INSPECTOR 06/15/2024 10:02 AM CAN INSPECTOR Narrative [facility] - 06/18/2024 10:27 AM CAN INSPECTOR LB us Bruce Justice MD LAB BLOOD ORDERABLES Final Resu lt [facility] [address] [address] [address] * Cytomegalovirus (CMV) DNA PCR, quantitative (06/15/2024 10:01 AM CAN INSPECTOR) CMV DNA qn Not Detected Not Detected IU/mL [facility] CMV DNA log IU/mL Not Detected Not Detected Log IU/mL [facility] Comment: (Note) For additional information, please refer to [email or web address] (This link is being provided for informational/educational purposes only.) [facility] [address] [address],[address] [facility] [address] Laurita Deleon MD, PhD 06/15/2024 10:0 1 AM CAN INSPECTOR 06/15/2024 10:02 AM CAN INSPECTOR Narrative [facility] - 06/18/2024 10:27 AM CAN INSPECTOR LB us Bruce Justice MD LAB MICROBIOLOGY - GENERAL ORDE RABLES Final Result Performing Organization Address City/[facility]/ZIP Co de Phone Number [facility] [address] [place] [address], [address] [place] [phone] * COPY(IES) SENT TO: (06/15/2024 10:01 AM CAN INSPECTOR) COPY(IES) SENT TO: [facility] Comment: [facility] - COPY TO [address] [phone] 06/15/2024 10:0 1 AM CAN INSPECTOR 06/15/2024 10:02 AM CAN INSPECTOR Narrative [facility] - 06/18/2024 10:27 AM CAN INSPECTOR LB us Bruce Justice MD LAB BLOOD ORDERABLES Final Resu lt [facility] * (ABNORMAL) BK virus, DNA, quantitative (06/15/2024 10:01 AM CAN INSPECTOR) BK virus, PCR 41(A) Not Detected IU/mL [facility] BK Virus DNA, Real Time PCR 1.61(A) Not Detected Log IU/mL [facility] Comment: [facility] [address] [address],[address] [facility] [address] Laurita Deleon MD, PhD 06/15/2024 10:0 1 AM CAN INSPECTOR 06/15/2024 10:02 AM CAN INSPECTOR Narrative [facility] - 06/18/2024 10:27 AM CAN INSPECTOR LB Bruce Justice MD LAB MICROBIOLOGY - [facility] Final Result [facility] [address] [address], [address] [place] [address] * (ABNORMAL) CBC with auto differential (06/15/2024 10:01 AM CAN INSPECTOR) [facility] WBC 7.8 3.8 - 10.8 Thousand/u L [...] [facility] 06/15/2024 10:0 1 AM CAN INSPECTOR 06/15/2024 10:02 AM CAN INSPECTOR Narrative [facility] - 06/18/2024 10:27 AM CAN INSPECTOR LB Bruce Justice MD LAB BLOOD ORDERABLES Final Resu lt Performing Organization Address [facility] Co de Phone Number [facility] [address] [facility] [place] [address] * (ABNORMAL) Protein / creatinine ratio, urine, random (06/15/2024 10:01 AM CAN INSPECTOR) Creatinine, ur 21 20 - 275 mg/dL [facility] Protein/creati nine ratio 35,000(H) 24 - 184 mg/g creat [facility] Protein/Creati nine Ratio 35.000(H) 0.024 - 0.184 mg/mg creat [facility] Protein, ur, quant 735(H) 5 - 24 mg/dL [facility] Comment: Verified by repeat analysis. 06/15/2024 10:0 1 AM CAN INSPECTOR 06/15/2024 10:02 AM CAN INSPECTOR Narrative [facility] - 06/18/2024 10:27 AM [facility] LB Bruce Justice MD LAB URINE ORDERABLES Final Resu lt Performing Organization Address [facility] Co de Phone Number [facility] [address] [facility] [place] [address] * (ABNORMAL) Renal function panel (06/15/2024 10:01 AM CAN INSPECTOR) Glucose 90 65 - 99 mg/dL [facility] [...] [facility] 06/15/2024 10:0 1 AM CAN INSPECTOR 06/15/2024 10:02 AM CAN INSPECTOR Narrative [facility] - 06/18/2024 10:27 AM CAN INSPECTOR LB Bruce Justice MD LAB BLOOD ORDERABLES Final Resu lt [facility] [address] [facility] [place] [address] * (ABNORMAL) Tacrolimus, Highly Sensitive, LC/MS/MS (05/11/2024 8:55 AM CAN INSPECTOR) Tacrolimus, Highly Sensitive, LC/MS/MS 1.2(L) mcg/L [facility] Comment: No definitive therapeutic or toxic ranges have been established. Optimal blood drug levels are influenced by type of transplant, patient response, time post- transplant, co-administration of other drugs, and drug formulation. The following trough range is a suggested guideline: 5.0-20.0 mcg/L. 05/11/2024 8:55 AM CAN INSPECTOR 05/11/2024 8:56 AM CAN INSPECTOR Narrative [facility] - 05/15/2024 2:37 AM CAN INSPECTOR LB FASTING:YES FASTING: YES Bruce Justice MD LAB BLOOD ORDERABLES Final Resu lt [facility] [address] [place] [address] * Cytomegalovirus (CMV) DNA PCR, quantitative (05/11/2024 8:55 AM CAN INSPECTOR) CMV DNA qn Not Detected Not Detected IU/mL [facility] CMV DNA log IU/mL Not Detected Not Detected Log IU/mL [facility] Comment: (Note) For additional information, please refer to [email or web address] (This link is being provided for informational/educational purposes only.) [facility] [address] [address],[address] [place] [address] Laurita Deleon MD, PhD 05/11/2024 8:55 AM CAN INSPECTOR 05/11/2024 8:56 AM CAN INSPECTOR Narrative [facility] - 05/15/2024 2:37 AM CAN INSPECTOR LB FASTING:YES FASTING: YES us Bruce Justice MD LAB MICROBIOLOGY - GENERAL ORDE RABLES Final Result Performing Organization Address [facility] de Phone Number [facility] [address] [place] [address], [address] [place] [phone] * COPY(IES) SENT TO: (05/11/2024 8:55 AM CAN INSPECTOR) COPY(IES) SENT TO: [facility] Comment: [facility] - COPY TO [facility] [address] [place] [address] 05/11/2024 8:55 AM CAN INSPECTOR 05/11/2024 8:56 AM CAN INSPECTOR Narrative [facility] - 05/15/2024 2:37 AM CAN INSPECTOR LB FASTING:YES FASTING: YES Bruce Justice MD LAB BLOOD ORDERABLES Final Resu lt Performing Organization Address City/[facility]/ZIP Co de Phone Number [facility] * BK virus, DNA, quantitative (05/11/2024 8:55 AM CAN INSPECTOR) Pathologist [facility] BK virus, PCR Not Detected Not Detected IU/mL [facility] BK Virus DNA, Real Time PCR Not Detected Not Detected Log IU/mL [facility] Comment: [facility] [address] [facility] [address] [facility] [address] Laurita Deleon MD, PhD 05/11/2024 8:55 AM CAN INSPECTOR 05/11/2024 8:56 AM CAN INSPECTOR Narrative [facility] - 05/15/2024 2:37 AM CAN INSPECTOR LB FASTING:YES FASTING: YES Bruce Justice MD LAB MICROBIOLOGY - [facility] Final Result [facility] [address] [address], [address] [place] [address] * (ABNORMAL) CBC with auto differential (05/11/2024 8:55 AM CAN INSPECTOR) Pathologist [facility] WBC 7.0 3.8 - 10.8 Thousand/u L [...] % [facility] 05/11/2024 8:55 AM CAN INSPECTOR 05/11/2024 8:56 AM CAN INSPECTOR Narrative [facility] - 05/15/2024 2:37 AM CAN INSPECTOR LB FASTING:YES FASTING: YES us Bruce Justice MD LAB BLOOD ORDERABLES Final Resu lt [facility] [address] [place] [address] * (ABNORMAL) Protein / creatinine ratio, urine, random (05/11/2024 8:55 AM CAN INSPECTOR) Creatinine, ur 7(L) 20 - 275 mg/dL [facility] Protein/creati nine ratio 244,286(H) 24 - 184 mg/g creat [facility] Protein/Creati nine Ratio 244.286(H) 0.024 - 0.184 mg/mg creat [facility] Protein, ur, quant 1,710(H) 5 - 24 mg/dL [facility] Comment: Results verified by repeat analysis on dilution. 05/11/2024 8:55 AM CAN INSPECTOR 05/11/2024 8:56 AM CAN INSPECTOR Narrative [facility] - 05/15/2024 2:37 AM CAN INSPECTOR LB FASTING:YES FASTING: YES us Bruce Justice MD LAB URINE ORDERABLES Final Resu lt [facility] [address] [address] [address] * (ABNORMAL) Renal function panel (05/11/2024 8:55 AM CAN INSPECTOR) Glucose 87 65 - 99 mg/dL [facility] [...] g/dL [facility] 05/11/2024 8:55 AM CAN INSPECTOR 05/11/2024 8:56 AM CAN INSPECTOR Narrative [facility] - 05/15/2024 2:37 AM CAN INSPECTOR LB FASTING:YES FASTING: YES us Bruce Justice MD LAB BLOOD ORDERABLES Final Resu lt Performing Organization Address City/[facility]/ZIP Co de Phone Number [facility] [address] [address] [address] * (ABNORMAL) Tacrolimus, Highly Sensitive, LC/MS/MS (04/08/2024 9:41 AM CAN INSPECTOR) Pathologist [facility] Tacrolimus, Highly Sensitive, LC/MS/MS <1.0(L) mcg/L [facility] Comment: Verified by repeat analysis. No definitive therapeutic or toxic ranges have been established. Optimal blood drug levels are influenced by type of transplant, patient response, time post- transplant, co-administration of other drugs, and drug formulation. The following trough range is a suggested guideline: 5.0-20.0 mcg/L. 04/08/2024 9:41 AM CAN INSPECTOR 04/08/2024 9:42 AM CAN INSPECTOR Narrative [facility] - 04/15/2024 4:01 AM CAN INSPECTOR LB Bruce Justice MD LAB BLOOD ORDERABLES Final Resu lt Performing Organization Address City/[facility]/ZIP Co de Phone Number [facility] [address] [place] [address] * (ABNORMAL) Cytomegalovirus (CMV) DNA PCR, quantitative (04/08/2024 9:41 AM CAN INSPECTOR) [facility] CMV DNA qn Results Below(A) Not Detected IU/mL [facility] Comment:Test not performed. Quantity not sufficient. CMV DNA log IU/mL Results Below(A) Not Detected Log IU/mL [facility] Comment: Test not performed. Quantity not sufficient. [facility] med [facility] [address] [address],[address] [place], [place] [id number] Laurita Deleon MD, PhD 04/08/2024 9:41 AM CAN INSPECTOR 04/08/2024 9:42 AM CAN INSPECTOR Narrative [facility] - 04/15/2024 4:01 AM CAN INSPECTOR LB Bruce Justice MD LAB MICROBIOLOGY - GENERAL ORDE RABLES Final Result Performing Organization Address City/[facility]/ZIP Co de Phone Number [facility] [address] [place] [address], [address] [place] [phone] * COPY(IES) SENT TO: (04/08/2024 9:41 AM CAN INSPECTOR) Pathologist [facility] [place] COPY(IES) SENT TO: SAMIA Comment: [place] PHYSICIAN [facility]ICAL [facility] AD[facility] [address] [place] [address] [facility] KIDNEY - COPY TO [facility] [address] [place] [address] 04/08/2024 9:41 AM CAN INSPECTOR 04/08/2024 9:42 AM CAN INSPECTOR Narrative [facility] - 04/15/2024 4:01 AM CAN INSPECTOR LB Bruce Justice MD LAB BLOOD ORDERABLES Final Resu lt [facility] * BK virus, DNA, quantitative (04/08/2024 9:41 AM CAN INSPECTOR) Pathologist [facility] [place] BK virus, PCR Not Detected Not Detected IU/mL [facility] BK Virus DNA, Real Time PCR Not Detected Not Detected Log IU/mL [facility] Comment: Your request to have a duplicate copy faxed has been acknowledged. Queued to: [id number] 04/08/2024 9:41 AM CAN INSPECTOR 04/08/2024 9:42 AM CAN INSPECTOR Narrative [facility] - 04/15/2024 4:01 AM CAN INSPECTOR LB Bruce Justice MD LAB [facility]CROBIOLOGY - [facility] Final Result [facility] [address] [place] [address] * (ABNORMAL) CBC with auto differential (04/08/2024 9:41 AM CAN INSPECTOR) Pathologist [facility] [place] WBC 8.4 3.8 - 10.8 Thousand/u L [...] % [facility] 04/08/2024 9:41 AM CAN INSPECTOR 04/08/2024 9:42 AM CAN INSPECTOR Narrative [facility] - 04/15/2024 4:01 AM CAN INSPECTOR LB us Bruce Justice MD LAB BLOOD ORDERABLES Final Resu lt [facility] [address] [address] [address] * (ABNORMAL) Protein / creatinine ratio, urine, random (04/08/2024 9:41 AM CAN INSPECTOR) Creatinine, ur <1(L) 20 - 275 mg/dL [...] repeat analysis on dilution. 04/08/2024 9:41 AM CAN INSPECTOR 04/08/2024 9:42 AM CAN INSPECTOR Narrative [facility] - 04/15/2024 4:01 AM CAN INSPECTOR LB us Bruce Justice MD LAB URINE ORDERABLES Final Resu lt [facility] [address] [place] [address] * (ABNORMAL) Renal function panel (04/08/2024 9:41 AM CAN INSPECTOR) Glucose 82 65 - 99 mg/dL [facility] [...] g/dL [facility] 04/08/2024 9:41 AM CAN INSPECTOR 04/08/2024 9:42 AM CAN INSPECTOR Narrative [facility] - 04/15/2024 4:01 AM CAN INSPECTOR LB us Bruce Justice MD LAB BLOOD ORDERABLES Final Resu lt [facility] [address] [address] * Hepatitis panel, acute Blood (12/03/2023 10:00 AM CDT) Hep A IgM Nonreactive Nonreactive Comment: Interpretive Data: If Hep A IgM Ab is reported as Equivocal, a new sample should be drawn in two weeks for testing. Current interpretive data was last revised on 19. Hep B core IgM Nonreactive Nonreactive [facility] Comment: Interpretive Data If HepB Core IgM Ab is reported as Equivocal, a new sample should be drawn in two weeks for testing. Current interpretive data was last revised on 19. Hep C Ab Nonreactive Nonreactive [facility] Comment: Interpretive Data Nonreactive: Antibodies to HCV [...] last revised on 2019. HepBsAg Nonreactive Nonreactive [facility] Blood 12/03/2023 10:0 0 AM CDT 12/03/2023 10:01 AM CDT Anna Clarke MD LAB MICROBIOLOGY - GENERAL OR DERABLES Final Result [facility] [address] Department [place] [address] from Last 3 Months or Most Recently Relevant to Health Maintenance Insurance [facility] MEDICARE [facility] MEDICARE MEDICARE [facility] [place] [address] Advance Directives For more information, please contact: [phone] * Full Code (Latest Code Status on [...] 10:10 AM 03/04/2023 8:53 PM Care Teams Message Broker Developer Relationship Specialty Start Date End Date Nikkie Gordon MD PCP - General Family Medicine 03/09/21 Nikkie Gordon MD 03/09/21 Susan Jones MD 11/27/18 Kristian Ram MD Consulting Physician Nephrology 05/05/19 Chelo Herzog, RN [address] [address] Business System Manager 05/05/19 Davidson aMrtinez MD [address] [address] Substitute School Nurse Cardiology 08/16/21 Tyson Bales MD [address] [address] Substitute School Nurse Cardiovascular Disease 04/16/22 Kristian Ram MD [address] [place] [address] [address] [place] [address] Referring Physician Nephrology 03/11/23 Anna Clarke MD [address] [place] [address] [address] [place] [address] Consulting Physician Nephrology 04/24/23
--- OUTSIDE RECORDS SUMMARY | 2024-06-24 01:53 | XMS_ITS | Clinical Summary ---
Author Organization [facility] Facility Address [address] [address] Care Team Providers Care Media Sales Representative Name Role Phone Nikkie Gordon MD Primary Care Provider [phone] Allergies Active Allergy Reactions Criticality Noted Date Comments Allopurinol Other (see comments) Low 07/24/2017 Could not urinate while taking Anuria Iodinated Contrast Media 03/01/2019 Other Other (see comments) High 06/27/2016 Pt has had a kidney transplant and all medications have to be ran through a certain database to make sure she is not allergic? Perflutren Lipid Microspheres Other (see comments) Medium 10/26/2018 Medications * This document contains information received from the source organization and may not represent a complete record from that organization. furosemide (LASIX) 20 MG tablet Take 4 tablets by mouth 2 (two) times a day Active atorvastatin (LIPITOR) 10 MG tablet Take 1 tablet by mouth 1 (one) time each day Active ferrous sulfate 325 (65 Fe) MG tablet Take 1 tablet by mouth 1 (one) time each day Active Calcium Carbonate 500 (200 Ca) MG wafer Take 1 tablet by mouth 1 (one) time each day Active Magnesium 400 MG tablet Take by mouth 1 (one) time each day Active potassium chloride (KLOR-CON) 20 MEQ packet Take 20 mEq by mouth 1 (one) time each day Active amLODIPine (NORVASC) 10 MG tablet Take 10 mg by mouth 1 (one) time each day Active sodium bicarbonate 325 MG tablet Take 650 mg by mouth 4 (four) times a day Active calcitriol (Rocaltrol) 0.25 MCG capsule Take 2 capsules (0.5 mcg total) by mouth 1 (one) time each day 60 capsule 11 1 Active predniSONE 5 MG tablet TAKE ONE TABLET BY MOUTH EVERY DAY 30 tablet 11 2 Active labetalol (NORMODYNE) 200 MG tablet TAKE 2 TABLETS (400 MG TOTAL) BY MOUTH 3 (THREE) TIMES A DAY 1200 MG DAILY 540 tablet 3 3 Active Hospital, Clinic, or Other Facility Administered Medication Ordered Dose Route Frequency Start Date End Date Status darbepoetin chirag solution prefilled syringe 100 mcgIndications:Anemia due to Renal Failure 100 mcg IJ Every 14 days 10/31/2020 Activ e epoetin chirag (EPOGEN,PROCRIT) injection 10,000 UnitsIndications:Anemia due to Renal Failure 16199 Units SC Every 14 days 04/05/2021 Active Active Problems Problem Noted Date Diagnosed Date Iron deficiency anemia 11/20/2018 Chronic kidney disease stage 3 10/24/2018 Type 2 diabetes mellitus without complication Hypertensive disorder 06/27/2016 Hyperlipidemia 06/27/2016 End-stage renal disease 06/27/2016 Immunizations Name Administration Dates Next Due Tdap 08/29/2016 Social History Tobacco Use Types [...] Sign Reading Time Taken Comments Blood Pressure 140/84 01/24/2020 11:05 AM CDT Pulse 85 01/24/2020 11:05 AM CDT Temperature 36.8 C (98.2 F) 01/24/2020 11:05 AM CDT Respiratory Rate - - Oxygen Saturation 95% 01/24/2020 11:05 AM CDT Inhaled Oxygen Concentration - - Weight 109 kg (239 lb 8 oz) 01/24/2020 11:05 AM CDT Height 167.6 cm (5' 6 ) 01/24/2020 11:05 AM CDT Body Mass Index 38.66 01/24/2020 11:05 AM CDT Plan of Treatment Health Maintenance Due Date Last Done Comments Breast Cancer Screening 1955 Pneumococcal Vaccine: 65+ Ye ars (1 of 2 - PCV) 09/06/1961 Colorectal Cancer Screening: Annual FOBT 09/06/2004 Colorectal Cancer Screening: Colonoscopy 09/06/2004 Colorectal Cancer Screening: Sigmoidoscopy 09/06/2004 Hepatitis B Vaccine (1 of 3 - Risk 3-dose series) 2015 06/04/2006, 05/07/2006, 03/28/2006 Diabetes: Ophthalmology Exam 02/01/2019 Diabetes: Pedal Pulse Checked 02/01/2019 Diabetes: Sensory Foot Exam 02/01/2019 Diabetes: Visual Foot Exam 02/01/2019 Diabetes: Hemoglobin A1C 12/08/2021 022, 04/15/2020, 02/22/2019 Influenza Vaccine (#1) 2023 Procedures Procedure Name Priority Date/Time Associated Diagnosis Comments SPECIAL CHEMISTRY Routine 2021 from Last 3 Months or Most Recently Relevant to Health Maintenance Results * SPECIAL CHEMISTRY (2021) Hemoglobin A1C 5.5 4.8 - 5.9 % [facility] [employer] [facility] 2021 09/08/2021 9:5 1 AM CDT Narrative [facility] - 09/08/2021 Unless otherwise specified, test(s) performed at: [facility], [address] [place] [address] OPERATING ENGINEER: Jaret Sweeney M.D. For any questions, please call customer service at FREQUENCY:MONTHLY Resulting Agency Comment Specimen source: Blood us Christin Sapp MD LAB BLOOD BANK TEST ORDERAB LES Final Result [facility] from Last 3 Months or Most Recently Relevant to Health Maintenance Insurance MEDICARE [place]ICAID [place] [facility] (PIL) Care Teams Media Sales Representative Relationship Specialty Start Date End Date Nikkie Gordon MD [address] [place] [address] PCP - General 01/24/20
--- OUTSIDE RECORDS SUMMARY | 2024-06-24 01:53 | XMS_ITS | Encounter Summary ---
Author Organization [facility] Address [address] [facility] [place] [address] Phone Care Team Providers Care Irrigation Flume Layer Name Role Phone Nikkie Gordon MD Primary Care Provider Reason for Visit * Reason Comments Med Refill Encounter Details Date Type Department Care Team (Late st Contact Info) Description 01/25/2024 Refill [facility]. [address] [facility] [address] [place] [address] Kristian Ram MD [address] [facility] [address] [place] [address] Social History Tobacco Use Types Packs/Day Years [...] on file documented as of this encounter Miscellaneous Notes * Telephone Encounter - Leanna Rome MA - 01/26/2024 8:50 AM CDT No longer a patient of ours documented in this encounter Plan of Treatment Not on file documented as of this encounter Visit Diagnoses Not on filedocumented in this encounter Care Teams Irrigation Flume Layer Relationship Specialty Start Date End Date Nikkie Gordon MD [address] [place] [address] PCP - General 01/24/20 documented as of this encounter
--- OUTSIDE RECORDS SUMMARY | 2024-06-24 01:54 | XMS_ITS | Clinical Summary ---
Author Organization [facility] Address [address] [place] [address] Phone Care Team Providers Care Parts Casting Machine Operator Name Role Phone Nikkie Gordon MD Primary Care Provider [phone] Allergies Active Allergy Reactions Criticality Noted Date Comments Allopurinol Other (See Comments) Low 07/24/2017 Could not urinate while taking Could not urinate while taking Anuria Urinary retention Bumetanide Other (See Comments),Unknown Low 10/25/2021 Pt states she can not take it Cannot take this Iodinated Contrast Media Muscle Pain,Other (See Comments) Medium 03/01/2019 Muscle rigidity Spasms, muscle contractions - only the kind of dye the cardiologists use patient has received dye from urology without reaction Lisinopril Unknown High 03/15/2021 Does not remember but reports was very severe Does not remember but reports was very severe Could not urinary Losartan Diarrhea,Other (See Comments) Low 10/20/2020 Mycophenolate Sodium Other (See Comments) Low 08/02/2020 Kidney transplant VK virus Kidney transplant BK virus Medications predniSONE (DELTASONE) 5 mg tablet Take 5 mg by mouth daily. 07/21/19 22 Active labetaloL (NORMODYNE) 200 mg tablet Take 400 mg by mouth 3 times daily. 06/08/19 22 Active atorvastatin (LIPITOR) 10 mg tablet Take 10 mg by mouth daily at bedtime. 12/08/19 21 Active amLODIPine (NORVASC) 10 mg tablet Take 1 Tablet by mouth daily. 03/18/20 22 Active folic acid (FOLVITE) 1 mg tablet Take 1 mg by mouth daily. 10/05/19 21 Active epoetin chirag (EPOGEN, PROCRIT) 10,000 unit/mL Solution Inject 10,000 Units by subcutaneous injection one time only. Gets with dialysis prn 04/05/20 21 Active calcitRIOL (ROCALTROL) 0.5 mcg capsule Take 2.5 mcg by mouth every other day. T/th/sat 02/01/20 22 Active famotidine (PEPCID) 20 mg tablet Take 20 mg by mouth 1 time daily as needed. 04/10/20 21 Active furosemide (LASIX) 80 mg tablet Take 1 Tablet by mouth 2 times daily. 06/10/19 23 Active iron dextran complex (IRON DEXTRAN IV) Inject by intravenous injection every 2 weeks. With dialysis Active traMADoL (ULTRAM) 50 mg tabletIndications :Dental caries Take 1 Tablet (50 mg) by mouth every 8 hours as needed for Pain. 15 Tablet 04/09/2023 4:00 PM TALENT ACQUISITION PROJECT MANAGER 04/09/20 23 Active tacrolimus (ENVARSUS XR) 1 mg Tablet Sustained Release 24HR Take 3 mg by mouth daily. Active calcium as carbonate (TUMS) 500 mg (200 mg elemental) Tablet, Chewable Take by mouth. Active oxyCODONE (ROXICODONE) 5 mg tabletIndications :Malfunction of arteriovenous dialysis fistula, initial encounter Take 1 Tablet (5 mg) by mouth every 4 hours as needed for Pain. Max Daily Amount: 30 mg 20 Tablet 02/11/20 24 Active midodrine (PROAMATINE) 10 mg Tablet Take 1 Tablet (10 mg) by mouth every 8 hours. 30 Tablet 03/02/20 24 Active naloxone (NARCAN) 4 mg/spray [place], Non-Aerosol EMERGENCY USE ONLY: Administer 1 spray (4 mg) in one nostril one time. May repeat in alternating nostrils every 2-3 min until responsive or EMS arrives. 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 Hyperlipidemia 06/27/2016 History of kidney transplant 11/15/2015 Overview (01/03/2024): S/P DDK-TXP in 2008 in [facility], followed by Dr Adriel Riley in in [facility]. Primary hypertension 11/15/2015 Encounters Date Type Department Care Team Description 06/15/2024 External Device Data STL ABSTRACTION Provider, Abstract 05/12/2024 External Device Data STL ABSTRACTION Provider, Abstract 04/20/2024 External Device Data [facility] ABSTRACTION Provider, Abstract 04/02/2024 Chart Note [facility] Nephrology [facility] [address] [facility] [address] [place] [address] Stephenie Saenz MD Dialysis Visit (Hemodialysis visit) from Last 3 Months Family History Medical History Relation Name Comments No Known Problems Father Hypertension Mother Relation Name Status Comments Father Mother Social History Tobacco Use Types Packs/Day Years Used Date Smoking Tobacco: Former Cigarettes 0.5 40 0 12/1982 - 12/2022 Smokeless Tobacco: Never Tobacco Cessation:Counseling Given: Not Answered Alcohol Use Standard Drinks/Week Comments Never 0 (1 standard drink = 0.6 oz pur e alcohol) Feeling Safe Answer Date Recorded Are you in a relationship wi th someone who hurts you emotionally and/or physically? No 03/01/2024 Food Insecurity Answer Date Recorded Social/Environmental Concerns No concerns Transportation Needs Answer Date Record ed Social/Environmental Concerns No concerns Housing Stability Answer Date Recorded Social/Environmental Concerns No concerns Utility Needs Answer Date Recorded Social/Environmental Concerns No concerns Comments No Sex and Gender Information Value Date Recorded Sex Assigned at Not on file Legal Sex Female 12:45 PM CDT Gender Identity Not on file Sexual Orientation Not on file Last Filed Vital Signs Vital Sign Reading Time Taken Comments Blood Pressure 142/62 03/02/2024 4:39 PM TALENT ACQUISITION PROJECT MANAGER Pulse 84 03/02/2024 1:06 PM TALENT ACQUISITION PROJECT MANAGER Temperature 36.9 C (98.4 F) 03/02/2024 4:39 PM TALENT ACQUISITION PROJECT MANAGER Respiratory Rate 21 03/02/2024 4:39 PM TALENT ACQUISITION PROJECT MANAGER Oxygen Saturation 100% 03/02/2024 4:39 PM TALENT ACQUISITION PROJECT MANAGER Inhaled Oxygen Concentration - - Weight 90.5 kg (199 lb 8.3 oz) 03/02/2024 2:25 P M TALENT ACQUISITION PROJECT MANAGER Height 162.6 cm (5' 4 ) 03/02/2024 3:20 AM TALENT ACQUISITION PROJECT MANAGER Body Mass Index 34.25 03/02/2024 3:20 AM TALENT ACQUISITION PROJECT MANAGER Plan of Treatment Health Maintenance Due Date Last Done Comments DIABETES ANNUAL FOOT EXAM 09/06/1973 DIABETES ANNUAL RETINAL EXAM 09/06/1973 DIABETES MICROALBUMIN ANNUAL SCREEN 09/06/1973 LDL CHOLESTEROL ANNUAL 09/06/1973 PNEUMOCOCCAL VACCINE 65+ YEA RS (1 of 2 - PCV) 09/06/1974 ZOSTER VACCINE (1 of 2) 09/06/1974 COLORECTAL SCREENING 09/06/2000 Colorectal Cancer Screening 09/06/2000 FIT-DNA Q 3 years 09/06/2000 FIT/FOBT Q 1 year 09/06/2000 Flex Sig/CT Colonography Q 5 years 09/06/2000 RSV VACCINE (60+ or ) (1 - Risk 60-74 years 1-dose series) 2015 BREAST CANCER SCREENING 12/18/2022 12/19/19, 02/22/2021, 08/03/2016 INFLUENZA VACCINE (#1) 2023 COVID-19 Vaccine (2023-2 5 season) 2023 03/19/2022, 12/12/2021, 08/23/2021, Additional history exists DIABETES HBA1C Q 6 MONTHS 07/01/2024 01/02/2024 DTAP/TDAP/TD VACCINES (2 - T d or Tdap) 08/29/2026 08/29/2016 OSTEOPOROSIS SCREENING Completed 02/19/2021, 2020 Medical Devices Implanted Type Area Chemical Plant Operator Supervisor Device Identifier Shelf Expiration Date Model / Serial / Lot Palindrome Precision Chronic Catheter Kit Implanted:Qty : 1 on 01/05/2024 by Ned Mccall MD at [facility] Catheter Right: Chest [employer] 06/25/2028 [id number] (REF #) / / [id number] Description:TRIAL NO CHARGE Clip Ligating Horizon Sm Ti [id number] - Csc - [id number] Implanted:Qty : 2 on 02/11/2024 by Ned Mccall MD at [facility] Clip Left: Arm [employer]LE[employer]LEX INC 10/26/2028 [id number] / / [id number] Clip Ligating Horizon Med Ti [id number] - Csc - [id number] Implanted:Qty : 1 on 02/11/2024 by Ned Mccall MD at [facility] Clip Left: Arm TELEFLEX- WECK CLOSURE SYS 12/17/2028 [id number] / / [id number] Graft Advanta Vxt Sw [id number] - [id number] Implanted:Qty : 1 on 02/11/2024 by Ned Mccall MD at [facility] Graft Left: Arm [employer] [id number] 12/14/2026 [id number] / [id number] / Hemostatic Surgiflo 8ml W/ Thrombin 2994 - [id number] Implanted:Qty : 1 on 02/11/2024 by Ned Mccall MD at [facility] Hemostatic Left: Arm [employer]J- [employer] [id number] 08/25/2024 [id number] / / [id number] Procedures Procedure Name Priority Date/Time Associated Diagnosis Comments HEMOGLOBIN A1C Routine 01/02/2024 9:02 PM CDT from Last 3 Months or Most Recently Relevant to Health Maintenance Results * HEMOGLOBIN A1C (01/02/2024 9:02 PM CDT) HEMOGLOBIN A1C 5.2 <5.7 % 01/03/2024 9:59 AM CDT [facility] EST. AVG GLUCOSE, A1C 103 mg/dL 01/03/2024 9:59 AM CDT [facility] Blood Venipuncture / Unknown 01/02/2024 9:02 PM CDT 01/02/2024 9:06 PM CDT Narrative [facility] - [facility] - 01/03/2024 9:59 AM CDT HGB A1C INTERPRETATION NORMAL: <5.7% PRE-DIABETES: 5.7 - 6.4% DIABETES: 6.5% OR GREATER Rico Munguia MD CHEMISTRY ORDERABLES Final Re sult [facility] [id number] [address] [place] [address] from Last 3 Months or Most Recently Relevant to Health Maintenance Insurance [employer] MEDICARE PART A AND B Advance Directives For more information, please contact: [phone] * Full Code (Latest Code Status on File) Date Activated Date Inactivated Comments 03/02/2024 4:40 AM 03/02/2024 11:09 PM * Full Code Date Activated Date Inactivated Comments 02/11/2024 9:35 AM 02/11/2024 8:01 PM * Full Code Date Activated Date Inactivated Comments 01/03/2024 9:02 AM 01/06/2024 3:29 PM Care Teams Parts Casting Machine Operator Relationship Specialty Start Date End Date Nikkie Gordon MD [address] [place] [address] PCP - General Family Practice 04/04/23
--- OUTSIDE RECORDS SUMMARY | 2024-06-24 01:54 | XMS_ITS | Encounter Summary ---
Author Organization [facility] Healthcare Address [address] [place] [address] Care Team Providers Care Asphalt Mixer Name Role Phone Nikkie Gordon MD Primary Care Provider [phone] Nikkie Gordon MD Unavailable [phone] Susan Jones MD Unavailable [phone] Kristian Ram MD Unavailable [phone] Chelo Herzog RN Unavailable [phone] Davidson Martinez MD Unavailable [phone] Lexis Nava RN Unavailable [phone] Emily Dixon MD Unavailable Tyson Bales MD Unavailable [phone] Kristian Ram MD Unavailable [phone] Anna Clarke MD Unavailable [phone] Encounter Details Date Type Department Care Team (Late st Contact Info) Description 03/05/2023 Documentation [facility] Case Management [address] [place] [address] Ella Levi LCSW Social History Tobacco Use Types Packs/Day Years Used Date Smoking Tobacco: Former Cigarettes 0.4 15.2 2 008 - 06/2022 Passive Smoke Exposure: Never Smokeless Tobacco: Never Alcohol Use Standard Drinks/Week Comments Never 0 (1 standard drink = 0.6 oz pur e alcohol) [facility] Utilities Answer Date Recorded In the past 12 months has th e BitLit, Lexdir, oil, or water Offees threatened to shut off services in your home? Yes 03/03/2023 Humiliation, Afraid, Rape, and Kick questionnair e [...] or ex-partner? No 04/04/2021 Social Connection and Isolat ion Panel [NHANES] Answer Date Recorded In a typical week, how many times do you talk on the phone with family, friends, or neighbors? More than three times a week 03/03/2023 How often do you get togethe r with friends or relatives? Once a week 03/03/2023 How often do you attend chur ch or buddhist services? More than 4 times per year 03/03/2023 Do you belong to any clubs o r organizations such as episcopalian groups, unions, fraternal or athletic groups, or school groups? No 03/03/2023 How often do you attend meet ings of the clubs or organizations you belong to? Never 03/03/2023 Are you , , di vorced, , never , or living with a partner? Never 03/03/2023 AUDIT-C Answer Date Recorded Q1: How often do you have a drink containing alcohol? Never 03/06/2023 Q2: How many drinks containi ng alcohol do you have on a typical day when you are drinking? Patient does not drink Q3: How often do you have si x or more drinks on one occasion? Never 03/06/2023 Overall Financial Resource Strain (CARDIA) Answe r Date Recorded How hard is it for you to pa y for the very basics like food, housing, medical care, and heating? Very hard 03/03/2023 PHQ-2 Answer Date Recorded PHQ-2 Total Score (If total score is 3 or more points, staff should administer the PHQ-9) 0 04/04/2021 Hunger Vital Sign Answer Date Recorded Within the past 12 months, y ou worried that your food would run out before you got the money to buy more. Never true 03/03/20 23 Within the past 12 months, t he food you bought just didn't last and you didn't have money to get more. Never true 03/03/2023 PRAPARE - Transportation Answer Date Re corded In the past 12 months, has l ack of transportation kept you from medical appointments or from getting medications? No 09/2022 In the past 12 months, has l ack of transportation kept you from meetings, work, or from getting things needed for daily living? No 03/03/2023 Housing Stability Vital Sign Answer Ald[place] e Recorded In the last 12 months, was t here a time when you were not able to pay the mortgage or rent on time? No 03/03/2023 In the last 12 months, how many places have you lived? 2 03/03/2023 In the last 12 months, was t here a time when you did not have a steady place to sleep or slept in a custodial (including now)? No 03/03/2023 Education Answer Date Recorded What is the highest level of school you have completed or the highest degree you have received? 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 Never 03/06/2023 11:37 AM Nikkie Harris RN Q2: How many drinks containing alcohol do you have on a typical day when you are drinking? Patient does not drink 03/06/2023 11:37 AM MANAGER PRIMARY Huber, Nikkie L., RN Q3: How often do you have six or more drinks on one occasion? Never 03/06/2023 11:37 AM MANAGER PRIMARY Nikkie Ngo RN documented as of this encounter Miscellaneous Notes * Plan of Care - Ella Levi LCSW - 03/05/2023 11:46 AM CST 11:13 Received call from Tasha at [facility] Main Office [phone], stating that the Regional Gourmet Coffee Attendant at [facility] has denied this pt for dialysis at all of their [facility] dialysis facilities. Tasha stated the pt has been contacted and informed of this decision. GER PRIMARY documented in this encounter Plan of Treatment Not on file documented as of this encounter Visit Diagnoses Not on filedocumented in this encounter Additional Health Concerns Infection Onset Date Last Indicated Resolved Time MDR gram neg/ESBL Comment:01/09/2024 urine cx with no growth, off antibiotics 06/01/2021 10/18/2022 01/21/2024 2:44 PM CDT COVID: Suspected 12/01/2023 12/01/2023 12/01/2023 8:25 PM CDT documented as of this encounter Care Teams Asphalt Mixer Relationship Specialty Start Date End Date Nikkie Gordon MD PCP - General Family Medicine 03/09/21 Nikkie Gordon MD 03/09/21 Susan Jones MD 11/27/18 Kristian Ram MD Consulting Physician Nephrology 05/05/19 Chelo Herzog, RN [address] [address] Starch Cooker 05/05/19 Davidson Martinez MD [address] [facility] [address] [place] [address] Ice Cream Freezer Helper Cardiology 08/16/21 Lexis Nava RN [address] [facility] [address] [place] [id number] Starch Cooker 03/05/22 Emily Dixon MD [address] [facility] [address] [place] [id number] Referring Physician Internal Medicine 03/05/22 3 Tyson Bales MD [address] [facility] [address] [place] [address] Ice Cream Freezer Helper Cardiovascular Disease 04/16/22 Kristian Ram MD [address] [facility] [address] [place] [address] Referring Physician Nephrology 03/11/23 Anna Clarke MD [address] [facility] [address] [place] [address] Consulting Physician Nephrology 04/24/23 documented as of this encounter
--- OUTSIDE RECORDS SUMMARY | 2024-06-24 01:54 | XMS_ITS | Clinical Summary ---
Author Organization [facility] Address [address] [place] [address] Phone Care Team Providers Care Cloth Framer Name Role Phone Kristian Ram MD Unavailable [phone] Nikkie Gordon MD Primary Care Provider [phone] Allergies Active Allergy Reactions Criticality Noted Date Comments Allopurinol Other (see Comments) Low 07/24/2017 Could not urinate while taking Anuria Iodinated Contrast Media Other (see Comments) 02/22/2021 Muscle rigidity Losartan Diarrhea 10/20/2020 Other Other (see Comments) High 06/27/2016 Pt has had a kidney transplant and all medications have to be ran through a certain database to make sure she is not allergic? Perflutren Lipid Microspheres Other (see Comments) Medium 10/26/2018 Contrast Medications predniSONE (DELTASONE) 5 MG Tablet Take 5 mg by mouth daily. Active labetalol (NORMODYNE) 200 MG TabletIndications: Acute diastolic CHF (congestive heart failure) (HCC),Essential hypertension,Acute renal failure, unspecified acute renal failure type (HCC) Take 2 Tabs by mouth every 8 hours. 540 Tab 2 04/02/20 19 Active amLODIPine (NORVASC) 10 MG Tablet TAKE 1 TABLET BY MOUTH EVERY DAY 90 Tab 2 07/05/19 20 Active Additional Information Patient taking differently: EVERY MORNING, Reported on 09/01/2021 atorvastatin (LIPITOR) 10 MG TabletIndications: Hyperlipidemia, unspecified hyperlipidemia type Take 1 Tab by mouth daily. 90 Tab 10/26/19 20 Active folic acid (FOLVITE) 1 MG Tablet Take by mouth daily. Active famotidine (PEPCID) 20 MG Tablet Take 1 Tablet by mouth daily. 60 Tablet 5 04/10/20 21 Active ethyl chloride Aerosol Apply 1 [place] three times a week. APPLY TO DIALYSIS SITE THREE TIMES A WEEK PRIOR TO DIALYSIS 116 mL 11 09/06/19 22 Active tacrolimus (PROGRAF) 1 MG Capsule Take 7 Capsules by mouth 2 times daily. 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 Prediabetes 05/21/2019 Obesity, Class II, BMI 35-39.9 01/29/2019 CHF (congestive heart failure) 11/27/2018 Overview (10/26/2019): Last Assessment & Plan: Patient with reported CHF. On review of 2nd chart patient's TTE 10/26 showed normal EF 67%, normal RV function, grade 2 diastolic dysfunction, PASP of 55, as well as moderate AR, mild-mod MR, and moderate TR. Pro-BNP 2900 from 2800 last admission. Appears euvolemic. H/O diabetes mellitus 11/20/2018 IFG (impaired fasting glucose) 11/20/2018 Iron deficiency anemia 11/20/2018 CKD (chronic kidney disease) stage 3, GFR 30-59 ml/min 10/24/2018 Gout 12/12/2017 PUD (peptic ulcer disease) 02/28/2017 Tobacco dependence syndrome 02/02/2017 NEREYDA on CPAP 06/27/2016 -donor kidney transplant 06/27/2016 Hyperlipidemia 06/27/2016 Hypertension 06/27/2016 Vitamin D deficiency 06/27/2016 ESRD (end stage renal disease) 06/27/2016 Resolved Problems Problem Noted Date Diagnosed Date Resolved Date Acute on chronic diastolic C HF (congestive heart failure) 08/26/2021 09/03/2021 Acute on chronic respiratory failure with hypoxia 08/25/2021 09/03/2021 Morbid obesity with BMI of 40.0-44.9, adult 11/26/2018 01/29/2019 Normocytic anemia 11/26/2018 01/29/2019 Hyperkalemia 11/26/2018 01/29/2019 Acute renal failure (ARF) 11/26/2018 Acute diastolic CHF (congest alis heart failure) 11/26/2018 01/29/2019 Hypokalemia 05/25/2018 05/25/2018 Type 2 diabetes mellitus wit hout complication, without long-term current use of insulin 09/05/2017 11/20/2018 History of GI bleed 02/07/2017 11/21/19 19 Hypomagnesemia 02/01/2017 02/02/2017 Immunizations Immunization Administration Dates Next Due PUR TDAP 7+ YRS IM 08/29/2016 Family History Medical History Relation Name Comments Hypertension Brother 1 multiple Congestive Heart Failure Brother 2 Hypertension Brother 2 No Known Problems Father Congestive Heart Failure Mother Hypertension Mother Stroke Mother 3-4 Hypertension Sister multiple Relation Name Status Comments Brother 1 Brother 2 Father Alive Mother (Age 71) Sister Social History Tobacco Use Types Packs/Day Years Used Date Smoking Tobacco: Every Day Cigarettes 0.3 9 Smokeless Tobacco: Never Tobacco Cessation:Counseling Given: No Alcohol Use Standard Drinks/Week Comments No 0 (1 standard drink = 0.6 oz pur e alcohol) PHQ-2 Answer Date Recorded PHQ-2 Score 0 12/24/2018 Sexually Active Control Partners Comments Not Currently Comments No Sex and Gender Information Value Date Recorded Sex Assigned at Not on file Legal Sex Female 9:20 AM [employer] Gender Identity Not on file Sexual Orientation Not on file Last Filed Vital Signs Vital Sign Reading Time Taken Comments Blood Pressure 122/57 09/05/2021 3:40 PM CDT Pulse 72 09/04/2021 11:00 PM CDT Temperature 36.1 C (96.9 F) 09/05/2021 3:40 PM CDT Respiratory Rate 16 09/05/2021 3:40 PM CDT Oxygen Saturation 100% 09/05/2021 8:13 AM CDT Inhaled Oxygen Concentration - - Weight 98.2 kg (216 lb 7 oz) 09/05/2021 6:00 AM CDT Height 162.6 cm (5' 4 ) 08/25/2021 11:46 PM CDT Body Mass Index 37.15 08/25/2021 11:46 PM CDT Plan of Treatment Health Maintenance Due Date Last Done Comments Pneumococcal Immunization (5 0+ years) (1 of 2 - PCV) 09/06/1974 Zoster Immunization (1 of 2) 09/06/1974 Cologuard 09/06/2005 Respiratory Syncytial Virus (RSV) Immunization (Adult) (1 - Risk 60-74 years 1-dose series) 2015 SARS-COV-2 Immunization (3 - Pfizer risk series) 09/20/2021 08/23/2021, 07/26/2021 Immunochemical Fecal Occult Blood 02/15/2022 02/15/2021, 10/20/2020, 11/27/2018 Influenza Immunization (#1) 2023 Colonoscopy 04/10/2026 04/10/2021, 02/04/2017, 04/28/2013 Colorectal Cancer Screening 04/10/2026 Td Immunization Every 10 Yea rs (Adults With 1 Tdap) 08/29/2026 08/29/2016 04/10/2021, 02/04/2017 Pap Smear Discontinued 04/28/2014 DEXA Bone Density Discontinued 02/19/2021 Mammogram Discontinued 02/22/2021, 08/03/2016 Hepatitis C Virus (HCV) Screening Completed 08/28/2021 Hepatitis B Immunization Aged Out No longer eligible based on patient's age to complete this topic Meningococcal Immunization (ACWY) Aged Out No longer eligible based on patient's age to complete this topic Rotavirus Immunization Aged Out No lo nger eligible based on patient's age to complete this topic Procedures Procedure Name Priority Date/Time Associated Diagnosis Comments HEPATITIS PANEL ACUTE (AHP) Routine 08/28/2021 9:52 AM CDT [facility] DIAG BILATERAL DIGITAL W CAD W JAGDEEP Routine 02/22/2021 3:22 PM CDT Mastodynia [facility] BONE DENSITOMETRY AXIAL SKELETON Routine 02/19/2021 10:52 AM CDT Asymptomatic menopausal state STOOL, OCCULT BLOOD, DIAGNOSTIC, VIA GUAIAC STAT 02/15/2021 11:59 PM CDT from Last 3 Months or Most Recently Relevant to Health Maintenance Results * Hepatitis Panel Acute (AHP) (08/28/2021 9:52 AM CDT) HEPATITIS A IGM ANTIBODY NON DETECTED NON DETECTED [place] [id number] B 08/28/2021 2:58 PM CDT [facility] Comment: IGM Antibodies to HAV not detected. Does not exclude early acute or recovered HAV infection. HEP B CORE AB (IGM) NON DETECTED NON DETECTED [place] [id number] B 08/28/2021 2:58 PM CDT [facility] Comment:IGM anti-HBC not det ected. Does not exclude the possibility of exposure to or infection with HBV. HEPATITIS B SURFACE ANTIGEN NON DETECTED NON DETECTED [address] 08/28/2021 2:58 PM CDT [facility] Comment:A nonreactive test r esult does not exclude the possibility of exposure to or infection with Hepatitis B virus. A nonreactive test result in individuals with prior exposure to hepatitis B may be due to antigen levels below the detection limit of this assay or lack of antigen reactivity to the antibodies in this assay. hepatitis C antibody 0.08 <1 S/CO [place] [id number] B 08/28/2021 2:58 PM CDT [facility] Comment: Signal/Cutoff ratio < 0.79 is Nondetected Signal/Cutoff ratio 0.80-0.99 is Grayzone Signal/Cutoff ratio > 0.99 is Detected Supplemental assays are recommended if signal/cutoff ratio is >/=1.00. Signal/cutoff ratio result >/= 5.00 is 97% predictive of positivity for recombinant immunoblot assay (RIBA) and will be reported to the [place] Department of Public [facility] as required. Blood Venipuncture / Unknown 08/28/2021 9:52 AM CDT 08/28/2021 9:52 AM CDT us Pj Maxwell DO HEMATOLOGY ORDERABLES Final Result [facility] [address] [place] [address], [place] * [facility] DIAG BILATERAL DIGITAL W CAD W JAGDEEP (02/22/2021 3:22 PM CDT) Anatomical Region Laterality Modality breast Bilateral Mammography 02/22/2021 2:46 PM CDT Narrative 02/23/2021 6:12 AM CDT - [facility] DIAG BILATERAL DIGITAL W CAD W JAGDEEP - [facility]I US BREAST LIMITED LT BILATERAL DIGITAL DIAGNOSTIC MAMMOGRAM 3D/2D WITH CAD WITH MEDIOLATERAL OBLIQUE CRANIOCAUDAL AND TARGETED LEFT ULTRASOUND: 02/22/2021 The study was acquired using digital technology and interpreted from soft copy. Current study was also evaluated with ICAD version 7.2. 2D digital mammographic views, as well as 3D digital tomosynthesis were performed in the CC and MLO projections. CLINICAL: Diagnostic study. Patient is due bilaterally. She is seated in a wheelchair during exam. Patient is short of breath but says that is normal for her. Patient had kidney transplant in 2007. She states having a failing kidney and since the last stint exchange, her left breast, ankles, and arm has become very swollen. She states the left breast feels sloshy when she turns. Technologist notes left breast enlargement, skin thickening, and a hardening to the anterior portion of the breast. No nipple discharge or redness to breast is noted. Patient returns to evaluate an asymmetry in the left breast. COMPARISONS: Comparison is made to exam dated: 08/03/2016 [facility]. Ultrasound of was performed. BREAST TISSUE:There are scattered fibroglandular densities in both breasts. FINDINGS: There is a global asymmetry in the left breast with marked enlargement of the left breast with skin and trabecular thickening. There is no discrete mass. Ultrasound demonstrates diffuse edema. Targeted ultrasound of the axilla demonstrates no abnormality. Per cannery worker, there is a large lump in the patient's left bicep. The patient reports that this is a failed stent. No other significant masses or calcifications are seen in either breast on the mammogram or left ultrasound. IMPRESSION: OVERALL STUDY BIRADS: 4C HIGH SUSPICION OF MALIGNANCY Glocal asymmetry of the left breast with skin and trabecular thickening. Given patient history of left arm stent failure for renal dialysis, this could be the sequela of stent failure and obstruction. Given appearance, inflammatory breast cancer cannot be excluded. Vascular surgeon consultation is recommended with referral to a breast surgeon for left breast skin punch biopsy. An immediate follow-up is recommended. Findings were relayed to the patient at the time of the examination. Electronically signed by: Rema Dunn M.D. ts/:02/22/2021 15:32:55 Artificial Stone Setter(s): Shashi Lowery (R)), [facility]; Glenny Esquivel, [facility] letter sent: Abnormal Exam Reading location: [place] OVERALL STUDY BIRADS: 4c High suspicion of malignancy Procedure Note Rema Dunn MD - 02/23/2021 - [facility] DIAG BILATERAL DIGITAL W CAD W JAGDEEP - KIKI US BREAST LIMITED LT BILATERAL DIGITAL DIAGNOSTIC MAMMOGRAM 3D/2D WITH CAD WITH MEDIOLATERAL OBLIQUE CRANIOCAUDAL AND TARGETED LEFT ULTRASOUND: 02/22/2021 The study was acquired using digital technology and interpreted from soft copy. Current study was also evaluated with ICAD version 7.2. 2D digital mammographic views, as well as 3D digital tomosynthesis were performed in the CC and MLO projections. CLINICAL: Diagnostic study. Patient is due bilaterally. She is seated in a wheelchair during exam. Patient is short of breath but says that is normal for her. Patient had kidney transplant in 2007. She states having a failing kidney and since the last stint exchange, her left breast, ankles, and arm has become very swollen. She states the left breast feels sloshy when she turns. Technologist notes left breast enlargement, skin thickening, and a hardening to the anterior portion of the breast. No nipple discharge or redness to breast is noted. Patient returns to evaluate an asymmetry in the left breast. COMPARISONS: Comparison is made to exam dated: 08/03/2016 [facility]. Ultrasound of was performed. BREAST TISSUE:There are scattered fibroglandular densities in both breasts. FINDINGS: There is a global asymmetry in the left breast with marked enlargement of the left breast with skin and trabecular thickening. There is no discrete mass. Ultrasound demonstrates diffuse edema. Targeted ultrasound of the axilla demonstrates no abnormality. Per cannery worker, there is a large lump in the patient's left bicep. The patient reports that this is a failed stent. No other significant masses or calcifications are seen in either breast on the mammogram or left ultrasound. IMPRESSION: OVERALL STUDY BIRADS: 4C HIGH SUSPICION OF MALIGNANCY Glocal asymmetry of the left breast with skin and trabecular thickening. Given patient history of left arm stent failure for renal dialysis, this could be the sequela of stent failure and obstruction. Given appearance, inflammatory breast cancer cannot be excluded. Vascular surgeon consultation is recommended with referral to a breast surgeon for left breast skin punch biopsy. An immediate follow-up is recommended. Findings were relayed to the patient at the time of the examination. Electronically signed by: Rema Dunn M.D. ts/:02/22/2021 15:32:55 Artificial Stone Setter(s): Frieda Lowery)(Bautista), [facility]; Glenny Esquivel, [facility] letter sent: Abnormal Exam Reading location: [place] OVERALL STUDY BIRADS: 4c High suspicion of malignancy us Nikkie Gordon MD IMG MAMMO ORDERABLES Final Resul t * [facility] BONE DENSITOMETRY AXIAL SKELETON (02/19/2021 10:52 AM CDT) Anatomical Region Laterality Modality BODY N/A Other 02/19/2021 1:2 8 PM CDT Impressions 02/19/2021 1:31 PM CDT IMPRESSION: Normal bone mineral density by WHO classification. REFERENCE: Bone mineral density: Normal (T-score above or = -1.0) Low bone mass (T-score between -1.0 and -2.5) replaces the previously used term osteopenia Osteoporosis (T-score = or below -2.5) Medical evaluation for secondary causes of low bone mineral density may be appropriate. FRAX is a World Health Organization validated fracture risk assessment tool that calculates a person's 10 year probability of a major osteoporosis related fracture and hip fracture. According to the National Osteoporosis Foundation guidelines, postmenopausal women and men age 50 or older with low bone mass and a 10 year probability of a major osteoporosis related fracture = or greater than 20% or a 10 year probability of a hip fracture = or greater than 3% should be considered for treatment. For further information, including treatment recommendations, please refer to the 2013 ISCD Official Positions (http://www.iscd.org) and the NOF's Clinician's Guide to Prevention and Treatment of Osteoporosis (http://www.nof.org/professionals/clinical-guidelines) Narrative 02/19/2021 1:31 PM CDT EXAM DESCRIPTION: [facility] BONE DENSITOMETRY AXIAL SKELETON REASON FOR STUDY: 65 year old female with given history of asymptomatic menopausal state. [employer] Assembler/Model: [employer] (S/N [id number]) CLINICAL INFORMATION: Current height: 64 inches Maximum height: Not reported Weight: 229 pounds Risk factors: Postmenopausal, current smoker, current/chronic glucocorticoid use use of antacids for more than 6 months, no regular weight-bearing exercise or dairy product consumption, drinks caffeinated beverages COMPARISON: None available. FINDINGS: AP LUMBAR SPINE L1-L4: Total BMD is 1.290 g/cm2 T-score is 0.8 LEFT HIP: Total BMD is 1.093 g/cm2 T-score is 0.7 Femoral neck BMD is 0.960 g/cm2 T-score is -0.6 FRAX is not reported because all T-scores are at or above -1.0. THIS IS AN ELECTRONICALLY VERIFIED FINAL REPORT 02/19/2021 1:28 PM - Electronically signed by Brock Haynes M.D., MD: Report ID: [id number] Reading Location: [place] [address] Procedure Note Brock Haynes MD - 02/19/2021 EXAM DESCRIPTION: [facility] BONE DENSITOMETRY AXIAL SKELETON REASON FOR STUDY: 65 year old female with given history of asymptomatic menopausal state. [employer] Assembler/Model: [employer] (S/N [id number]) CLINICAL INFORMATION: Current height: 64 inches Maximum height: Not reported Weight: 229 pounds Risk factors: Postmenopausal, current smoker, current/chronic glucocorticoid use use of antacids for more than 6 months, no regular weight-bearing exercise or dairy product consumption, drinks caffeinated beverages COMPARISON: None available. FINDINGS: AP LUMBAR SPINE L1-L4: Total BMD is 1.290 g/cm2 T-score is 0.8 LEFT HIP: Total BMD is 1.093 g/cm2 T-score is 0.7 Femoral neck BMD is 0.960 g/cm2 T-score is -0.6 FRAX is not reported because all T-scores are at or above -1.0. THIS IS AN ELECTRONICALLY VERIFIED FINAL REPORT 02/19/2021 1:28 PM - Electronically signed by Brock Haynes M.D., MD: Report ID: [id number] Reading Location: [place] [address] IMPRESSION: Normal bone mineral density by WHO classification. REFERENCE: Bone mineral density: Normal (T-score above or = -1.0) Low bone mass (T-score between -1.0 and -2.5) replaces the previously used term osteopenia Osteoporosis (T-score = or below -2.5) Medical evaluation for secondary causes of low bone mineral density may be appropriate. FRAX is a World Health Organization validated fracture risk assessment tool that calculates a person's 10 year probability of a major osteoporosis related fracture and hip fracture. According to the National Osteoporosis Foundation guidelines, postmenopausal women and men age 50 or older with low bone mass and a 10 year probability of a major osteoporosis related fracture = or greater than 20% or a 10 year probability of a hip fracture = or greater than 3% should be considered for treatment. For further information, including treatment recommendations, please refer to the 2013 ISCD Official Positions (http://www.iscd.org) and the NOF's Clinician's Guide to Prevention and Treatment of Osteoporosis (http://www.nof.org/professionals/clinical-guidelines) us Nikkie Gordon MD IMG DEXA ORDERABLES Final Result * Stool Occult Blood - Diagnostic (02/15/2021 11:59 PM CDT) [facility] Signature OCCULT BLOOD DIAG, GI BLEED Negative Negative 02/16/2021 12:26 AM CDT [facility] Stool Non-Phlebotomy Collection / Unknown 02/15/2021 11:59 PM CDT 02/16/2021 12:21 AM CDT us Familia Brunson MD BODY FLUIDS & STOOLS [place] Final Result [facility] [address] [place] [address] from Last 3 Months or Most Recently Relevant to Health Maintenance Insurance MEDICARE C [employer] Advance Directives * Full Code (Latest Code Status on File) Date Activated Date Inactivated Comments 08/26/2021 1:18 AM 09/05/2021 6:57 PM CPR-Full Teodora tment: FULL ARREST: Attempt Resuscitation/CPR wit intubation and mechanical ventilation. PRE-ARREST: Use entire range of life support measures to stabilize the patient. * Full Code Date Activated Date Inactivated Comments 11/27/2018 1:46 AM 11/27/2018 7:59 PM CPR-Full Treat ment: FULL ARREST: Attempt Resuscitation/CPR wit intubation and mechanical ventilation. PRE-ARREST: Use entire range of life support measures to stabilize the patient. * Full Code Date Activated Date Inactivated Comments 02/01/2017 10:35 PM 02/04/2017 6:57 PM CPR-Full T reatment: FULL ARREST: Attempt Resuscitation/CPR wit intubation and mechanical ventilation. PRE-ARREST: Use entire range of life support measures to stabilize the patient. Care Teams Cloth Framer Relationship Specialty Start Date End Date Nikkie Gordon MD [address] [place] [address] PCP - General Family Medicine 02/18/20 Kristian Ram MD Consulting Physician Nephrology 11/20/18
--- OUTSIDE RECORDS SUMMARY | 2024-06-24 01:55 | XMS_ITS | Continuity of Care Document ---
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 Exam performed. No report to be issued. I have personally reviewed the images and attest to the contents of this report. * * *Final Report* * * Electronic ally Signed by: Recochemnick r_system, PS360 Signed on: 05/24/24 10:39 05/24 07:20 :00 [facility] REFERENCE LABS HLA Anti-A Titer see scanned image 02/08 11:36 :00 [facility] NM Cardiac - SPECT Perfusion Pharmacolo gical Stress NM Cardiac - SPECT Perfusion Pharmacologi genna Stress Nuc Med PET Accession # Exam Date/Time Procedure Ordering Provider [id number] 12/25/2023 13:30 CDT NM Cardiac - Perfusion Raoul Potter MD Pharmalogrishabh Nolasco Reason For Exam (NM Cardiac - Perfusion Pharmalogi genna Ana) DSE non diagnostic Report EXAMINATIO N: Myocardial perfusion SPECT INDICATION : DSE non diagnostic COMPARISON : Cardiac perfusion examinatio n 08/09/2022 TECHNIQUE: Radiopharm aceutical for rest images: Myoview Dose: 10.2 mCi Radiopharm aceutical for stress images: Myoview Dose: 35 mCi Resident participat ing: Ashley Webber, Mode Stress: Lexiscan Informed consent was obtained. Prior to stress test, a clinical evaluation was performed for the purpose of qualifying patient for the pharmacolo gic stress test. The purpose was to assess indication , to exclude contraindi cation, and to ensure patient safety. For pharmacolo gic stress, the patient was given 0.4 mg of Regadenoso n (Lexiscan) intravenou sly over 10-20 seconds. The radiopharm aceutical was injected immediatel y after Regadenoso n injection. Patient's 12-lead EKG, BP, heart rate, SPO2, and clinical symptoms were monitored during the stress test. The rest images were taken prior to stress image acquisitio n. Attenuatio n correction was also performed. SPECT images were reconstruc zahraa in three dimensions . Left ventricula r functional assessment was performed from perfusion images. Computer analysis of this data was done to calculate left ventricula r ejection fraction, LV end-diasto lic volume, and to assess wall motion. Normal LVEF: > 50% Normal PFR: > 2.5 EDV/sec Normal TTPF: < 230 millisecon ds ([facility] August 2014) Per NCDR Registry: The study is classified as negative, positive, or indetermin ate based on the presence and extent of ischemia as low, intermedia te or high risk. FINDINGS: No fixed or reversible myocardial perfusion defects. LV EDV: 77 ml LVEF: 68% IMPRESSION : 1. Myocardial perfusion is normal 2. LV function: Within normal limits 3. NCDR Risk: Low Nuc Med PET Report I have personally reviewed the images and attest to the contents of this report. * * *Final Report* * * Electronic ally Signed by: Jacinda Levin MD Signed on: 12/25/23 15:13 12/24 10:25 :33 [facility] REFERENCE LABS HLA Anti-A Titer see scanned image 10/26 11:25 :00 [facility] REFERENCE LABS HLA Antibody Screening Class I & II see scanned image 10/05 16:09 :00 [facility] GENERAL CHEMISTRY Sodium 136 mmol/L 136 - 145 09/22 16:32 :00 [facility] GENERAL CHEMISTRY Potassium 5.5 mmol/L 3.5 - 5.1 09/22 16:32 :00 [facility] GENERAL CHEMISTRY Chloride 92 mmol/L 98 - 107 09/22 16:32 :00 [facility] GENERAL CHEMISTRY CO2 27 mmol/L 22 - 29 09/22 16:32 :00 [facility] GENERAL CHEMISTRY Glucose Lvl 98 mg/dL 70 - 139 09/22 16:32 :00 [facility] GENERAL CHEMISTRY BUN 18 mg/dL 8 - 23 09/22 16:32 :00 [facility] GENERAL CHEMISTRY Creatinine, standardized 7.43 mg/dL 0.50 - 1.00 09/22 16:32 :00 Interpretive Data: Wmkaqc-kx-trm e transgender patients on testosterone therapy should have results assessed using the male reference range. Mvef-cu-nlpig e transgender patients on hormone-modul ating therapy clinical judgment is advisedfor assessment. [facility] GENERAL CHEMISTRY Calcium 10.2 mg/dL 8.6 - 10.2 09/22 16:32 :00 [facility] CHEMISTRY Alkaline Phosphatase 60 units/L 35 - 104 09/22 16:32 :00 Interpretive Data: Normal range for plasma alkaline phosphatase in females 20 years or older: 35-104 U/L according to sr. vendor management associate' s instructions 35-129 U/L according to data analysis on adult females who presented to [facility] in 2021 without a significant diagnosis Clinical judgement is advised. Ikcmue-ap-der e transgender patients on testosterone therapy should have results assessed using the male reference range. Pify-oh-mwbgr e transgender patients on hormone-modul ating therapy clinical judgment is advisedfor assessment. [facility] GENERAL CHEMISTRY AST-SGOT 13 units/L 09/22 16:32 :00 [facility] GENERAL CHEMISTRY ALT-SGPT 9 units/L 10 - 35 09/22 16:32 :00 [facility] GENERAL CHEMISTRY T Bili 0.40 mg/dL 0.00 - 1.60 09/22 16:32 :00 [facility] CHEMISTRY Total Protein 7.4 g/dL 6.6 - 8.7 09/22 16:32 :00 [facility] CHEMISTRY Albumin 4.1 g/dL 3.5 - 5.2 09/22 16:32 :00 [facility] CHEMISTRY Estimated GFR for Adults 6 mL/min/1.7 3m 09/22 16:32 :00 Result Comment: The eGFR was estimated using the CKD-EPI equation. The National Kidney Foundation recommends that all clinical labs utilize this equation: Hattie , Ellis LA, Estuardo CH, et al. A new equation to estimate glomerular filtration rate. Veronica [employer]edded [employer] Med. 2009;150(9):6 04-612. For calculation reference see https://www.k TitanFileney.org/pro fessionals/kd oqi/gfr_calcu lator Interpretive Data: Changed to CKD-EPI 2020 on 2020. [facility] GENERAL CHEMISTRY Anion gap 22 mmol/L 0 - 20 09/22 16:32 :00 [facility] CHEMISTRY Estimated GFR for peds Not calculated 09/22 16:32 :00 Interpretive Data: The estimated GFR was calculated using the Triny Orozco equation (2009) . Reference: Pediatric GFR calculator at National Kidney Foundation Website. [facility] CHEMISTRY Triglyceride s 98 mg/dL 0 - 150 09/22 16:32 :00 Interpretive Data: Less than 150 Normal 150 - 199 Borderline high 200 - 499 High 500 and above Very high National Cholesterol Education Program [facility] [address] [address] [place] [address] http://www.nh lbi,nih.gov [facility] CHEMISTRY Cholesterol HDL Ratio 1.9 09/22 16:32 :00 Interpretive Data: The cholesterol HDL ratio is the best overall predictor of heart disease. -Less than 5 is normal -From 5 to 9 there is increasing risk -Higher than 9 is high risk. A ratio higher than 9 will often require prescription medication to help prevent heart disease. See http://jemima-jessica go.[facility].edu/Jessica velazquez/Sajan d.htm for more information. [facility] GENERAL CHEMISTRY LDL (Calculated) 73 mg/dL 0 - 129 09/22 16:32 :00 Interpretive Data: LDL Cholesterol Level mg/dL Category Less than 100 Optimal 100 to 129 Near or above optimal 130 to 159 Borderline high 160 to 189 High 190 and above Very High Note: Values < 80 mg/dL may indicate hypobetalipop roteinemia, if not on Statin therapy. Reference: ATP III Guidelines, http://fcm-al go.[facility]/Jessica velazquez/Lipi d.htm [place] Cholesterol Education Program [facility] Information Network [address] [address] [facility] [address] http:www.nhlb i.nih.gov Footnote: Depending on cardiac risk factors, age, and sex, [facility] Cardiology prefers: <75 mg/dl optimal <100 mg/dl desirable [facility] GENERAL CHEMISTRY HDL Cholesterol 106 mg/dL 50 - 60 09/22 16:32 :00 Interpretive Data: HDL Cholesterol Level mg/dL Category Less than 40(for Men) Low HDL cholesterol. A major risk factor for heart disease. Less than 50 (for Women) 60 and above High HDL cholesterol. An HDL of 60 mg/dL and above is considered protective against heart disease. National Cholesterol Education Program [facility] Information Network [address] [address] [facility] [address] http:www.nhlb i.nih.gov [facility] GENERAL CHEMISTRY Cholesterol 199 mg/dL 0 - 200 09/22 16:32 :00 [facility] GENERAL CHEMISTRY Phosphorus 4.7 mg/dL 2.5 - 4.5 09/22 16:32 :00 [facility] GENERAL CHEMISTRY Syphilis Antibody, IgG and Ig M Nonreactiv e 9 *NA* (09/23/23 11:32 AM) 09/22 16:32 :00 Interpretive Data: Repeatedly reactive samples will reflex to RPR for Titer. If RPR results are not confirmatory, Syphilis Antibody by TP-PA will be performed. [facility] HEMATOLOGY PROFILES WBC 8.40 x10(9)/L 3.50 - 10.50 09/22 16:32 :00 [facility] HEMATOLOGY PROFILES RBC 4.22 x10(12)/L 3.90 - 5.03 09/22 16:32 :00 [facility] HEMATOLOGY PROFILES HGB 12.6 g/dL 12.0 - 15.5 09/22 16:32 :00 Interpretive Data: Koimmn-wa-kca e transgender patients on testosterone therapy should have results assessed using the male reference range. Pwkb-as-ajemk e transgender patients on hormone-modul ating therapy clinical judgment is advisedfor assessment. [facility] HEMATOLOGY PROFILES HCT 40.4 % 34.9 - 44.5 09/22 16:32 :00 Interpretive Data: Ztwjus-kw-axj e transgender patients on testosterone therapy should have results assessed using the male reference range. Kblo-av-oymfl e transgender patients on hormone-modul ating therapy clinical judgment is advisedfor assessment. [facility] HEMATOLOGY PROFILES MCV 95.7 fL 81.6 - 98.3 09/22 16:32 :00 [facility] HEMATOLOGY PROFILES MCH 29.9 pg 26.0 - 33.0 09/22 16:32 :00 [facility] HEMATOLOGY PROFILES MCHC 31.2 g/dL 32.0 - 36.0 09/22 16:32 :00 [facility] HEMATOLOGY PROFILES RDW CV 17.4 % 11.9 - 15.5 09/22 16:32 :00 [facility] HEMATOLOGY PROFILES RDW SD 60.0 fL 36.4 - 46.3 09/22 16:32 :00 [facility] HEMATOLOGY PROFILES PLT 179 x10(9)/L 150 - 450 09/22 16:32 :00 [facility] HEMATOLOGY PROFILES MPV 10.8 8.0 - 12.0 09/22 16:32 :00 [facility] HEMATOLOGY PROFILES % Nucleated RBCs 0.0 % 09/22 16:32 :00 [facility] HEMATOLOGY PROFILES Absolute Nucleated RBCs 0.0 x10(9)/L 0.0 - 0.0 09/22 16:32 :00 Interpretive Data: Normal values not established in patients less than 18 years old. [facility] HEMATOLOGY PROFILES % Neutrophils 87.0 % 09/22 16:32 :00 [facility] HEMATOLOGY PROFILES % Lymphocytes 8.2 % 09/22 16:32 :00 [facility] HEMATOLOGY PROFILES % Monocytes 3.6 % 09/22 16:32 :00 [facility] HEMATOLOGY PROFILES % Eosinophils 0.1 % 09/22 16:32 :00 [facility] HEMATOLOGY PROFILES % Basophils 0.1 % 09/22 16:32 :00 [facility] HEMATOLOGY PROFILES % Immature Granulocytes 1.00 % 0.02 - 0.42 09/22 16:32 :00 [facility] HEMATOLOGY PROFILES Absolute Granulocytes 7.31 x10(9)/L 1.70 - 7.00 09/22 16:32 :00 [facility] HEMATOLOGY PROFILES Abs Lymphocytes 0.69 x10(9)/L 0.90 - 2.90 09/22 16:32 :00 [facility] HEMATOLOGY PROFILES Abs Monocytes 0.30 x10(9)/L 0.30 - 0.90 09/22 16:32 :00 [facility] HEMATOLOGY PROFILES Abs Eosinophils 0.01 x10(9)/L 0.05 - 0.50 09/22 16:32 :00 [facility] HEMATOLOGY PROFILES Abs Basophils 0.01 x10(9)/L 0.00 - 0.30 09/22 16:32 :00 [facility] HEMATOLOGY PROFILES Abs Immature Granulocytes 0.08 x10(9)/L 0.00 - 0.03 09/22 16:32 :00 [facility] IMMUNOLOGY /VIROLOGY Hep B Surface Ag Nonreactiv e *NA* (09/23/23 11:32 AM) 09/22 16:32 :00 [facility] IMMUNOLOGY /VIROLOGY Hepatitis B Surface Ag Interpretati on Hepatitis B surface antigen was not detected. This does not exclude the possibilit y of exposure to, or infection with Hepatitis B Virus. 09/22 16:32 :00 [facility] IMMUNOLOGY /VIROLOGY Hep B Surface Kalee Nonreactiv e *NA* (09/23/23 11:32 AM) 09/22 16:32 :00 [facility] IMMUNOLOGY /VIROLOGY Hepatitis B Surface Ab Interpretati on Hepatitis B surface antibody not detected. Individual is considered not immune to infection with Hepatitis B Virus. 09/22 16:32 :00 [facility] IMMUNOLOGY /VIROLOGY Hep B Core Ab Nonreactiv e *NA* (09/23/23 11:32 AM) 09/22 16:32 :00 [facility] IMMUNOLOGY /VIROLOGY Hepatitis B Core Antibody Interpretati on Total antibodies to Hepatitis B Core were not detected. This does not exclude the possibilit y of exposure to, or infection with hepatitis. Levels of antibodies to hepatitis B core may be below the cut-off in early infection. 09/22 16:32 :00 [facility] IMMUNOLOGY /VIROLOGY Hep C Kalee by EIA Nonreactiv e *NA* (09/23/23 11:32 AM) 09/22 16:32 :00 [facility] IMMUNOLOGY /VIROLOGY Hepatitis C Antibody Interpretati on Antibodies to Hepatitis C were not detected. This does not exclude the possibilit y of prior exposure to, or infection with hepatitis. Levels of antibodies to hepatitis C may be below the cut-off in early infection. 09/22 16:32 :00 [facility] MISC CHEMISTRY Intact PTH 329.0 pg/mL 15.0 - 65.0 09/22 16:32 :00 [facility] REFERENCE LABS EBV VCA IgM-Canaan Negative 09/22 16:32 :00 [facility] REFERENCE LABS EBV VCA IgG-Canaan Positive 09/22 16:32 :00 [facility] REFERENCE LABS EBV Nuclear Ag-Canaan Positive 09/22 16:32 :00 [facility] REFERENCE LABS EBV Ab Interp-Canaan See Comment 09/22 16:32 :00 Result Comment: RESULT: Results suggest past infection. ------ADDITIO NAL INFORMATION-- ---- In most populations, at least 90% of the adult population will have been infected with EBV sometime in the past and therefore, will be positive for anti-VCA/IgG and anti- EBNA. Antibodies to EBNA develop 6-8 weeks after primary infection and remain present for life. Presence of VCA/ IgM antibodies indicates recent primary infection with EBV. Test Performed by: [facility] [address] [id number] [place] [address] Husbandry Technician: Thomas Ron M.D. Ph.D.; CLIA# [id number] [facility] REFERENCE LABS HLA Anti-A Titer see scanned image 09/22 16:32 :00 [facility] XR Panorex XR Panorex XR General Diagnostic Accession # Exam Date/Time Procedure Ordering Provider [id number] 09/23/2023 11:21 CDT XR Panorex Raoul Potter MD Reason For Exam (XR Panorex) Tranplant Recipient Report EXAMINATIO N: XR Panorex INDICATION : Tranplant Recipient VIEWS: 1 COMPARISON : Panorex August 09, 2022 FINDINGS/ IMPRESSION : Interval extraction of multiple teeth with dental cavities and periapical lucencies. Scattered fillings are seen. No significan t periapical periodonta l disease of the remaining teeth are seen. Tiny sclerotic foci within the mandible are noted, likely represent odontomas. Otherwise no lytic or sclerotic mandibular lesions. I have personally reviewed the images and attest to the contents of this report. * * *Final Report* * * Electronic ally Signed by: Pat Bender MD Signed on: 09/23/23 11:59 09/22 11:02 :31 [facility] XR Chest XR Chest XR General Diagnostic Accession # Exam Date/Time Procedure Ordering Provider [id number] 09/23/2023 11:20 CDT XR Chest Raoul Potter MD Reason For Exam (XR Chest) Transplant Recipient Report EXAMINATIO N: XR Chest INDICATION : Transplant Recipient VIEWS: 2 COMPARISON : 08/09/2022 FINDINGS: Cardiomega ly. Lingular linear subsegment al atelectasi s or scarring. No focal parenchyma l process. No pleural effusions. No pneumothor ax. No acute osseous abnormalit ies. IMPRESSION : No acute cardiopulm onary findings. I have personally reviewed the images and attest to the contents of this report. * * *Final Report* * * Electronic ally Signed by: Michele Campo MD Signed on: 09/23/23 12:57 09/22 11:02 :18 [facility] CT Kidney Stone Study CT Kidney Stone Study CT Scan/CT Angio Accession # Exam Date/Time Procedure Ordering Provider [id number] 09/23/2023 09:[address] Kidney Stone Study Raoul Potter MD Reason For Exam (CT Kidney Stone Study) Transplant Recipient Report EXAMINATIO N: CT Abdomen and pelvis without IV contrast. TECHNIQUE: CT images were acquired through the abdomen and pelvis. Sagittal and coronal reformatte d series were provided. Oral contrast was not adminstere d. INDICATION : Transplant Recipient COMPARISON : 08/09/2022 FINDINGS: Disclaimer : Evaluation of the abdominal and pelvic organs as well as the vasculatur e structures is limited due to lack of IV contrast. Within these limitation s, the following observatio ns were made: KIDNEYS AND COLLECTING SYSTEM: Saxman right Kidney: Markedly atrophic. Too small to characteri ze parenchyma l hypodensit ies. Stable indetermin ate 1.1 cm mildly hyperdense lower pole lesion. Punctate nonobstruc ting calculus in the lower pole. No hydrourete ronephrosi s. Saxman left Kidney: Markedly atrophic. Too small to characteri ze parenchyma l hypodensit ies. Stable indetermin ate attenuatio n subcentime ter lesion in the interpolar region (series 3 image 36). No hydronephr osis. Right lower quadrant transplant kidney: Multifocal cortical atrophy. Stable nephrouret eral stent terminatin g in the urinary bladder. Similar mild pelviectas is which could be physiologi genna. No overt hydronephr osis. Urinary Bladder: Decompress ed and not well evaluated OTHERS: Lower Chest: Unremarkab le lung bases. Small pericardia l effusion. Liver: Unchanged too small to characteri ze parenchyma l hypodensit ies. Gallbladde r/Biliary: Postcholec ystectomy changes with similar biliary prominence . Pancreas: Mildly atrophic. Spleen: Stable hypodense lesion in the upper pole. Adrenal Glands: Unremarkab le. Bowel: Small hiatal hernia. Small duodenal diverticul um. No findings of bowel obstructio n. Mild colonic diverticul osis without evidence of diverticul itis. Normal appendix. Reproducti ve Organs: Enlarged uterus with multiple predominan tly calcified fibroids. No adnexal masses. A more conspicuou s low-attenu ation cystic lesion along the anterior cervix may represent a nabothian cyst (series 3 image 87) Lymph Nodes: No lymphadeno kush. Vessels: The aorta and iliac arteries are normal in course and caliber. Mild scattered aortoiliac calcificat ions. No significan t atheroscle rotic calcificat ions in bilateral external iliac arteries. Others: No ascites. No pneumoperi toneum. CT Scan/CT Angio Report Body Wall: Small fat-contai sophie umbilical hernia. Bones: No acute or suspicious osseous abnormalit y. IMPRESSION : 1. Right lower quadrant transplant kidney with similar mild cortical atrophy. Stable transplant nephrouret eral stent with similar mild pelviectas is, which could be physiologi genna. 2. Markedly atrophic bilateral negative kidneys with multiple too small to characteri ze hypodensit ies. Stable indetermin ate attenuatio n lesion in both tulalip kidneys, which are incomplete ly evaluated. Punctate nonobstruc ting right tulalip renal calculus. 3. Other chronic/in cidental findings as described above. I have personally reviewed the images and attest to the contents of this report. * * *Final Report* * * Electronic ally Signed by: Vinny VALENTINE, Estela Allison Signed on: 09/23/23 09:53 09/22 08:49 :33 [facility] REFERENCE LABS HLA Anti-A Titer SEE SCANNED IMAGE. 07/28 17:49 :00 [facility] Consultation Notes Results Value Date Source Op/Procedure Note Attending Physician: Dr. Potter Service: Urology Resident: Rome Bonilla, PGY2 PreOperative Diagnosis: Transplant kidney with chronic hydronephrosis possibly due to stricture, managed with chronic indwelling ureteral stent PostOperative Diagnosis: Same Procedure Performed: Cystourethroscopy 20x6Fr ureteral double J stent placement in transplant kidney Fluoroscopy with interpretation exclusive of radiology Indication: Transplant kidney with chronic hydronephrosis possibly due to stricture, managed with chronic indwelling ureteral stent Anesthesia: General Findings: Transplant neoureterocystotomy at right anterior bladder near the dome with indwelling 20cm x 6Fr stent. Transplant kidney retrograde pyelogram with mild blunting of calyces. Uncomplicated transplant kidney ureteral stent exchange Description of Procedure: After consent was obtained, the patient was taken to the operating room and placed on the table in supine position. General anesthesia and preoperative antibiotics were administered. Patient was then placed in lithotomy and prepped and draped in the usual sterile fashion. Surgical timeout was performed. A 22 Uzbek cystoscope with a 30 degree lens was advanced through the urethra and into the bladder. The bladder mucosa was normal without evidence of tumor or erythematous patch. Transplant kidney ureteral orifice was seen at the right anterior bladder near the dome with indwelling 20cm x 6Fr ureteral stent with clear efflux of urine. Using the endoscopic grasper, the existing ureteral stent was pulled to the meatus. We attempted to place a wire next to the stent but were unable to cannulate the ureter. A 0.035 sensor wire was passed under fluoroscopy through the existing stent and into the transplant kidney. A 5 Fr open ended ureteral catheter was advanced over the wire into the ureteral orifice, and contrast was injected for retrograde ureteropyelography. No filling defects were appreciated with mild blunting of calyces. The wire was again advanced through the 5Fr ureteral catheter and into the transplant kidney under fluoroscopy. When removing the 5Fr catheter the wire came out of the kidney and into the bladder. The transplant neoureterocystomy was then easily cannulated with the 0.035 sensor tip wire and advanced into the transplant kidney with fluoroscopy. Next a 20 cm x 6Fr stent was passed via the cystoscope over the wire into the renal collecting system, and wire was subsequently withdrawn. Good curl appreciated in the renal pelvis and bladder on fluoro and direct vision, respectively. The patient's bladder was drained and the scope was removed. The patient was allowed to awaken from anesthesia and was transferred to recovery in stable condition. Estimated Blood Lost: Minimal Fluid Replacement: Crystalloid Complications: None Drains: 20 cm x 6 Fr ureteral stent in transplant kidney Specimen: Urine for culture Attending Physician Present For Entire procedure: Dr. Potter Disposition: PACU, then home. Dr. Potter to schedule patient in 3 months for next stent exchange in the OR. I was present for the entire procedure and agree with everything documented above with the following exceptions/additions: none 05/24/2024 Echocardiogram Dobutamine Stress (DSE) Patient Information Patient name: MARGUERITE CARCAMO Date of : 1955 UEI: [id number] Age: 68 year(s) Gender: Female Visit number: [id number] Procedure Information Procedure: Stress procedure: Echo Dobutamine Stress (DSE), Complete 2D, Color Flow, Complete Spectral Doppler. Study date and time: 09/23/2023 10:22 AM Blood pressure: 92 / 63 mmHg Study status: Routine Heart rate: 71 bpm Patient status: Out-Patient Height: 64 in. Study location: Echo Lab Weight: 194 lb. BSA: 1.93 m BMI: 33.3 kg/m Indication N18.6 End-Stage Renal Disease. Procedure Staff Referring Physician: Abbey Nolasco Demonstrator Sales: Eula Davison RDCS Interpreting physician: Katy Gonzalez MD Physician Conclusions Summary: Estimated left ventricular ejection fraction is 60 %. Left atrium is dilated. Small pericardial effusion without tamponade. Trileaflet aortic valve. There is moderate aortic regurgitation. Ascending aorta is dilated and measures 3.8 cm in diameter. Target heart rate was not achieved. No ischemic response to stress at peak HR. This test is non-diagnostic for ischemia due to inability to reach target HR. Recommendations: Based on this study, the risk of a coronary event cannot be determined. Consider another modality to assess for ischemia/coronary artery disease. Signature The interpreting physician was the supervising physician for this procedure. Rest ECG: Continuous monitoring of electrocardiogram was performed. Normal sinus rhythm. Standing HR: 71 bpm Standing BP: 92 / 63 mmHg Resting Echo Images: There is no evidence of a left ventricular dynamic outflow obstruction at rest. Overall regional wall motion is normal. Left ventricular size is normal. Overall global left ventricular systolic function is normal. Estimated left ventricular ejection fraction is 60 %. Left atrium is dilated. Small pericardial effusion without tamponade. Trileaflet aortic valve. There is moderate aortic regurgitation. Ascending aorta is dilated and measures 3.8 cm in diameter. Stress Stress protocol: Pharmacologic - Dobutamine HR response: Blunted Peak HR: 89 bpm BP response: Normal Peak BP: 125 / 81 mmHg HR/BP product: 11,125 Predicted HR: 152 bpm % of predicted HR: 59 Reason for Protocol complete termination: Stage # Stage Name Heart Rate Systolic BP Diastolic BP Pain Location Pain Type 0 Baseline 71 92 63 None 1 10 mcgkgmin 72 76 47 None 2 20 mcgkgmin 70 83 49 None 3 30 mcgkgmin 66 106 68 None 4 40 mcgkgmin 60 109 67 None 5 50 mcgkgmin 80 120 80 None Recovery Immediate 89 125 81 None Recovery Recovery I 89 96 63 None Recovery Recovery II 82 100 67 None Low Dose: Overall regional wall motion is normal. There is appropriate reduction in left ventricular size. There is appropriate augmentation in LV function. Peak: There was further reduction in left ventricular size and augmentation in LV function. Recovery: Overall regional wall motion is normal. Left ventricular size and function returned to baseline. Stress Interpretation Target heart rate was not achieved. No ischemic response to stress. Stress Results Global LVEF (rest): Normal (LVEF >50%) Global LVEF (stress): Hyperkinetic (LVEF >70%) ECG: Continuous monitoring of electrocardiogram was performed. No ischemic ECG changes. Arrhythmias: There were no stress arrhythmias or conduction abnormalities. Symptoms: There was no chest pain during stress. Stress Wall Motion Assessment Target heart rate was not achieved. No ischemic response to stress. Aortic Valve LVOT Peak velocity: 182.52 cm/s LVOT Mean velocity: 111.57 cm/s LVOT Peak gradient: 12.15 mmHg LVOT Mean gradient: 5.99 mmHg AV regurgitation PHT: 568.45 ms LVOT VTI: 32.82 cm Aorta/Great Vessels Ascending aorta: 3.81 cm 09/23/2023 Echocardiogram Transthoracic Complete (TTE) Patient Information Patient name: MARGUERITE CARCAMO Date of : 1955 UEI: [id number] Age: 68 year(s) Gender: Female Visit number: [id number] Procedure Information Procedure: TTE procedure: Echo Transthoracic Complete, Complete 2D, M-mode, Complete Spectral Doppler, Color Flow. Study date and time: 09/23/2023 9:57 AM Blood pressure: 92 / 63 mmHg Study status: Routine Heart rate: 68 bpm Patient status: Out-Patient Height: 64 in. Study location: Echo Lab Weight: 194 lb. BSA: 1.93 m BMI: 33.3 kg/m Indication N18.6 End-Stage Renal Disease. Procedure Staff Referring Physician: Abbey Nolasco Demonstrator Sales: Eula Davison RDCS Interpreting physician: Katy Gonzalez MD Physician Conclusions Summary: Left ventricular size is normal. There is moderate to severe concentric LVH. Left ventricular systolic function is normal, ejection fraction is 60 %. Left ventricular grade I diastolic dysfunction. Overall regional wall motion is normal. Right ventricular size is normal. Right ventricular systolic function is normal. Right ventricular systolic pressure is estimated at 34 mmHg but may be underestimated due to incomplete TR jet. Left atrium size is dilated. Right atrium is dilated. The aortic valve is trileaflet. There is no evidence for aortic stenosis. There is moderate aortic valve regurgitation. PHT 490 msec. There is mild mitral valve regurgitation. There is mild tricuspid valve regurgitation. The IVC is normal in size and course. Respirophasic changes were normal. There is a small anterior pericardial effusion near the RV without tamponade. Signature Findings Left ventricle: Left ventricular size is normal. There is moderate to severe concentric LVH. Left ventricular systolic function is normal, ejection fraction is 60 %. Left ventricular grade I diastolic dysfunction. Overall regional wall motion is normal. Right ventricle: Right ventricular size is normal. Right ventricular systolic function is normal. Right ventricular systolic pressure is estimated at 34 mmHg but may be underestimated due to incomplete TR jet. Left atrium: Left atrium size is dilated. Right atrium: Right atrium is dilated. Aortic valve: The aortic valve is trileaflet. There is no evidence for aortic stenosis. There is moderate aortic valve regurgitation. PHT 490 msec. Mitral valve: Mitral valve structure is normal. There is normal leaflet separation. There is no evidence for mitral valve stenosis. There is mild mitral valve regurgitation. Tricuspid valve: Tricuspid valve structure is normal. There is no evidence for tricuspid stenosis. Mild tricuspid valve regurgitation. Pulmonic valve: Pulmonic valve structure is normal. There is no evidence for pulmonic stenosis. There is no significant pulmonic regurgitation. Aorta/Great vessels: Aortic root exhibited normal size. The IVC is normal in size and course. Respirophasic changes were normal. Pericardial: There is a small anterior pericardial effusion near the RV without tamponade. Left Ventricle Diastolic dimension: 4.42 cm Systolic dimension: 3.41 cm 2D septum diastolic: 1.64 cm Area systolic: 11.95 cm (0.6 - 0.9 cm) FS: 23 % 2D post wall diastolic: 1.29 cm CO: 6.59 l/min (0.6 - 0.9 cm) CI: 3.41 l/min/m Area diastolic: 23.04 cm LVESV MOD: 39.62 ml LV length: 7.45 cm LVESVI MOD: 20.52 ml/m LV mass (ASE formula): 259.11 g EF Ruiz (BP): 59 % (67 - 162 g) LVEDV (A2C): 56.95 ml LV mass index: 134.19 g/m (43 - 95 g/m RWT: 0.58 LVEDVI (A2C): 29.49 ml/m LVEDV MOD: 59.55 ml LVESVI (A2C): 10.83 ml/m LVEDVI MOD: 30.84 ml/m EF Calculated: 33.47 % LVEDV Ruiz (BP): 59.55 ml LVESV Ruiz (BP): 24.39 ml LVEDV (A4C): 61.32 ml LVESV (A4C): 28.24 ml LVEDVI (A4C): 31.76 ml/m LVESVI (A4C): 14.63 ml/m EF (A4C): 54 % Right Ventricle Diastolic dimension: 3.99 cm RVOT VTI: 24.64 cm Left Atrium LA diameter (2D): 5.14 cm LA/Aorta (2D): 1.67 (2.7 - 3.8 cm) LA volume index: 35.34 ml/m LA area: 16.27 cm LA volume: 68.24 ml Aortic Valve Peak velocity (Siemens): 210 cm/s Mean velocity: 144.05 cm/s Area (cont VTI): 2.54 cm AV VTI: 38.2 cm Acceleration time: 62.16 ms LVOT Peak velocity: 168.06 cm/s LVOT Mean velocity: 109.21 cm/s LVOT Peak gradient: 11.43 mmHg LVOT Mean gradient: 5.58 mmHg LVOT diameter: 1.96 cm LVOT VTI: 32.13 cm AV regurgitation PHT: 561.67 ms Mitral Valve Peak E-wave: 65.51 cm/s Peak A-wave: 81.64 cm/s PHT: 50.47 ms E/A ratio: 0.8 Area (PHT): 4.36 cm E' septal velocity: 4.32 cm/s Deceleration time: 132.6 ms E/E' septal: 15.16 E' lateral velocity: 5.95 cm/s E/E' lateral: 11.01 E/E' average: 13.09 Tricuspid Valve TR velocity: 214.13 cm/s TR gradient: 18.34 mmHg Pulmonic Valve Peak velocity (Siemens): 116.11 cm/s Mean gradient: 2.26 mmHg Mean velocity: 68.97 cm/s Acceleration time: 136.75 ms Aorta/Great Vessels Aortic root (2D): 3.07 cm Ascending aorta: 3.53 cm LVOT diameter: 1.96 cm 09/23/2023 History and Physicals Results Value Date Source History and Physical History of Present Illness Vijay Valdivia is a 68F with ESRD presumed to be secondary to hypertensive nephropathy, s/p renal transplant in 2007 @ [facility] where transplanted kidney eventually failed in 2021 after COVID-19 infection, currently on in-center HD 3x week. Additional PMHx includes anemia of chronic kidney disease, secondary hyperparathyroidism, hyperphosphatemia, hypertension, hyperlipidemia. She established care with cardiology in July [address] Peng for cardiac evaluation for renal transplantation. She is on waitlist for kidney transplant. She presents for cystoscopy with transplant kidney ureteral stent exchange. She gets [id number] stent exchanges for transplant kidney ureteral stricture. Review of Systems A 14 point review of system was performed and was negative except for those symptoms noted in the HPI. Physical Exam Vitals and Measurements Gen: No acute distress HEENT: Normocephalic, EOMI, vision grossly intact, hearing grossly normal, Cardiac: No cyanosis, no pallor Respiratory: Unlabored respiration Genitourinary: Deferred Ext: Warm, no extremity edema Assessment/Plan Vijay Valdivia is a 68F with ESRD presumed to be secondary to hypertensive nephropathy, s/p renal transplant in 2007 @ [facility] where transplanted kidney eventually failed in 2021 after COVID-19 infection, currently on in-center HD 3x week at [place], [place]. Additional PMHx includes anemia of chronic kidney disease, secondary hyperparathyroidism, hyperphosphatemia, hypertension, hyperlipidemia. She presents for cystoscopy with transplant kidney ureteral stent exchange. She gets [id number] stent exchanges for transplant kidney ureteral stricture. Plan: - to OR for transplant stent exchange. R/b/a discussed with the patient who voiced understanding. All questions answered. Procedural consent signed. 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 Potter. Problem List/Past Medical History Historical Procedure/Surgical History cadaveric kidney transplant Service Date: 2007 cholecystectomy Medications Home amLODIPine, 10 mg, Oral, Daily atorvastatin(Lipitor), 10 mg, Oral, At Bedtime calcitriol epoetin chirag(Epogen), IV, 3xWeekly folic acid(folic acid 1 mg oral tablet), 1 mg= 1 Tablet(s), Oral, Daily furosemide(Lasix 80 mg oral tablet), 80 mg= 1 Tablet(s), Oral, bid, 3 refills labetalol, 400 mg, Oral, q8h Misc. Medication(Iron infusion) predniSONE(predniSONE 5 mg oral tablet), 5 mg= 1 Tablet(s), Oral, Daily, 3 refills predniSONE(predniSONE 5 mg oral tablet), 1 Tablet(s), Oral, qAM predniSONE(predniSONE 5 mg oral tablet), 1 Tablet(s), Oral, qAM, 3 refills tacrolimus(Prograf), See Instructions tacrolimus(tacrolimus 1 mg oral capsule), 2 mg= 2 capsule(s), Oral, Daily, 3 refills Allergies allopurinol iodine topical Social History Smoking Status Former smoker quit longer than 12 months Family History Immunizations Lab Results Diagnostic Results I personally saw the patient with resident. We discussed diagnosis and management. I agree with documentation. Raoul Potter MD 05/24/2024 Vital Signs Vital Sign Value Date Comments Source SpO2 96 % 05/24/2024 14:28:00 [facility] Heart Rate 75 bpm 05/24/2024 14:28:00 [facility] SBP NIBP 113 mm[Hg] 05/24/2024 14:28:00 [facility] DBP NIBP 66 mm[Hg] 05/24/2024 14:28:00 [facility] Temperature (Celsius) 35.8 Swathi 05/24/2024 14:28:00 [facility] Mean NIBP 78 mm[Hg] 05/24/2024 14:28:00 [facility] SpO2 94 % 05/24/2024 14:19:09 [facility] Heart Rate 73 bpm 05/24/2024 14:19:07 [facility] Respiratory Rate 18 breaths/min 05/24/2024 14:19:04 [facility] SBP NIBP 107 mm[Hg] 05/24/2024 14:15:00 [facility] DBP NIBP 61 mm[Hg] 05/24/2024 14:15:00 [facility] Mean NIBP 76 mm[Hg] 05/24/2024 14:15:00 [facility] SpO2 97 % 05/24/2024 14:14:38 [facility] Respiratory Rate 19 breaths/min 05/24/2024 14:14:37 [facility] Heart Rate 68 bpm 05/24/2024 14:14:25 [facility] Mean NIBP 83 mm[Hg] 05/24/2024 14:10:00 [facility] SBP NIBP 108 mm[Hg] 05/24/2024 14:10:00 [facility] DBP NIBP 69 mm[Hg] 05/24/2024 14:10:00 [facility] Heart Rate 70 bpm 05/24/2024 14:06:07 [facility] SpO2 94 % 05/24/2024 14:06:05 [facility] Respiratory Rate 14 breaths/min 05/24/2024 14:06:01 [facility] Mean NIBP 80 mm[Hg] 05/24/2024 14:05:00 [facility] SBP NIBP 104 mm[Hg] 05/24/2024 14:05:00 [facility] DBP NIBP 63 mm[Hg] 05/24/2024 14:05:00 [facility] Respiratory Rate 18 breaths/min 05/24/2024 14:03:33 [facility] Temperature (Celsius) 36.4 Swathi 05/24/2024 13:45:00 [facility] Weight (kg) 89.1 kg 05/24/2024 11:19:00 [facility] Temperature (Celsius) 36.3 Swathi 05/24/2024 11:19:00 [facility] Heart Rate 73 bpm 04/22/2024 16:06:00 [facility] BSA [place] 1.94 04/22/2024 16:06:00 [facility] SpO2 97 % 04/22/2024 16:06:00 [facility] Height (cm) 162.56 cm 04/22/2024 16:06:00 [facility] SBP NIBP 99 mm[Hg] 04/22/2024 16:06:00 [facility] DBP NIBP 64 mm[Hg] 04/22/2024 16:06:00 [facility] BMI 33.6 kg/m2 04/22/2024 16:06:00 [facility] Weight (kg) 88.7 kg 04/22/2024 16:06:00 [facility] Height (cm) 156.4 cm 12/25/2023 18:23:00 [facility] Weight (kg) 88.15 kg 12/25/2023 18:23:00 [facility] BMI 36 kg/m2 12/25/2023 18:23:00 [facility] BSA [place] 1.88 12/25/2023 18:23:00 [facility] SpO2 96 % 12/25/2023 18:23:00 [facility] Heart Rate 88 bpm 12/25/2023 18:23:00 [facility] SBP NIBP 134 mm[Hg] 12/25/2023 18:23:00 [facility] DBP NIBP 84 mm[Hg] 12/25/2023 18:23:00 [facility] Temperature (Celsius) 35.9 Swathi 09/23/2023 17:56:00 [facility] Heart Rate 71 bpm 09/23/2023 17:56:00 [facility] SBP NIBP 121 mm[Hg] 09/23/2023 17:56:00 [facility] DBP NIBP 63 mm[Hg] 09/23/2023 17:56:00 [facility] Height (cm) 159.5 cm 09/23/2023 17:56:00 [facility] Weight (kg) 89.65 kg 09/23/2023 17:56:00 [facility] BMI 35.2 kg/m2 09/23/2023 17:56:00 [facility] BSA [place] 1.92 09/23/2023 17:56:00 [facility] Weight (kg) 91 kg 09/23/2023 14:35:00 [facility] Encounters Location Location Details Encounter Type Encounter Number Reason For Visit Attending Provider ADM Date DC Date Status Source [facility] Outpatient [id number] [facility] 07/28 05:00 :00 07/29 04:59 :59 [facility] Outpatient [id number] Labs [facility] 09/01 07:22 :00 09/01 23:59 :59 Discharge d [facility] Outpatient [id number] [facility] 09/22 13:40 :08 09/23 04:59 :59 [facility] Outpatient [id number] [facility] 09/22 13:41 :35 09/23 04:59 :59 [facility] Surg Nephrology Clinic [id number] Judydenzel Rutherford 09/22 17:44 :23 09/23 04:59 :59 [facility] Surg Nutrition [facility] [id number] [facility] 09/22 17:44 :46 09/23 04:59 :59 [facility] [id number] [facility] 09/22 17:45 :10 09/23 04:59 :59 [facility] Outpatient [id number] [facility] 10/05 16:08 :00 10/06 04:59 :59 [facility] Outpatient [id number] [facility] 10/26 11:24 :00 10/27 04:59 :59 [facility] Outpatient [id number] [facility] 12/24 14:04 :16 12/25 04:59 :59 [facility] Heart [facility] Cardiology Clinic [id number] Eder Gotti 12/24 18:12 :17 12/25 04:59 :59 [facility] Outpatient [id number] [facility] 01/06 13:16 :00 01/07 04:59 :59 [facility] Outpatient [id number] [facility] 02/08 11:32 :00 02/09 04:59 :59 [facility] Outpatient [id number] [facility] 02/11 12:50 :00 02/12 04:59 :59 [facility] Outpatient [id number] [facility] 04/05 15:43 :00 04/06 05:59 :59 [facility] Neph[facility] [id number] Prashanth Edward 04/22 15:52 :18 04/23 05:59 :59 [facility]ar[facility] Pulmonary N Environment al Med Between Visit [id number] 04/23 16:57 :16 04/24 05:59 :59 [facility] St[facility]ar[facility] Nephrology Between Visit [id number] 04/26 15:16 :02 04/27 05:59 :59 [facility] Outpatient [id number] labs Raoul Potter 05/10 07:03 :00 05/10 23:59 :59 Active [facility] Day Surgery [id number] Raoul Potter 05/24 10:25 :03 05/24 15:14 :00 [facility] Nurse Phone Call Clinic [id number] Juan Emanuel 05/24 13:16 :21 05/25 05:59 :59 [facility] Stitch Separator Pulmonary N Environment al Med Between Visit [id number] 05/31 18:04 :46 06/01 05:59 :59 [facility] Procedures Procedure Code Date Perfomer Comments Source cholecystectomy [facility] Social History Social History Date Source No data available for this section 06/01/2024 [facility] No data available for this section 05/25/2024 [facility] No data available for this section 05/24/2024 [facility] No data available for this section 04/27/2024 [facility] No data available for this section 04/24/2024 [facility] No data available for this section 04/23/2024 [facility] No data available for this section 04/06/2024 [facility] No data available for this section 02/13/2024 [facility] No data available for this section 02/10/2024 [facility] No data available for this section 01/08/2024 [facility] No data available for this section 12/26/2023 [facility] No data available for this section 10/28/2023 [facility] No data available for this section 10/07/2023 [facility] No data available for this section 09/24/2023 [facility] No data available for this section 07/30/2023 [facility]
[2024-06-24 11:17] VITALS: BP 117/69; PULSE 70; RESP 20; TEMP 35.8; O2SAT 100; BMI 34.0
--- NOTE | 2024-06-24 11:43 | WPDANESEPPF ---
Anes - Initial Pre Proc Eval Procedure: Operation Date: 06/24/24 11:30 Proposed Procedures p Screening Colonoscopy - Oscar Alfaro MD Date/Time: 06/24/24 11:43 Surgeon: Oscar Alfaro MD Pre Op Diagnosis: Screening Patient Data Age: 68 Gender: F Height: 1.63 m Weight: 90.1 kg Last Vital Signs Temp 96.4 F L 06/24/24 11:17 Pulse 70 06/24/24 11:17 Resp 20 06/24/24 11:17 BP 117/69 06/24/24 11:17 Pulse Ox 100 06/24/24 11:17 O2 Del Method Room Air 06/24/24 11:17 Allergies Allergy/AdvReac Type Severity Reaction Status Date / Time iodine Allergy Mild Unknown Verified 06/24/24 11:16 losartan AdvReac Severe diarrhea, Verified 06/24/24 11:16 fatigue mycophenolic acid (From AdvReac Severe transplant Verified 06/24/24 11:16 Myfortic) rejection, BK virus allopurinol AdvReac Mild urinary Verified 06/24/24 11:16 retention Home Medications ?Medication ?Instructions ?Recorded ?Confirmed ?Type prednisone 5 mg tablet 5 mg PO DAILY 01/24/20 06/24/24 History inhalational spacing device #1 ea 08/13/21 06/10/24 Rx ([employer] Aerochamber) folic acid 1 mg tablet 1 mg PO DAILY #30 tabs 12/26/21 06/24/24 Rx furosemide 80 mg tablet 80 mg PO BID #60 tabs 12/26/21 06/24/24 Rx calcitriol 0.5 mcg capsule 0.5 mcg PO 3XW 08/26/22 06/24/24 History tramadol 50 mg tablet 50 mg PO Q6H PRN pain #30 tabs 01/13/24 06/18/24 Rx amlodipine 10 mg tablet 10 mg PO DAILY #90 tabs 01/26/24 06/24/24 Rx labetalol 200 mg tablet 200 mg PO TID #270 tabs 01/27/24 06/24/24 Rx tacrolimus 1 mg capsule, 8 mg (8 x 1 mg) PO BID #60 caps 04/02/24 06/24/24 Rx immediate-release atorvastatin 10 mg tablet (Lipitor) 10 mg PO QHS #90 tabs 05/10/24 06/24/24 Rx ethyl chloride 100 % topical spray 1 applic topical ONCE #116 mL 05/26/24 06/24/24 Rx Patient hx anesthesia problems: none Family hx anesthesia problems: none Results Review: All pre-operative results and documents have been reviewed as part of the pre-operative evaluation. [facility] Past Medical History Medical History Hemodialysis patient Chronic renal insufficiency, stage V H/O thyroid nodule Chronic renal insufficiency, stage IV (severe) Anemia in chronic kidney disease (CKD) Vitamin B12 deficiency Folic acid deficiency Acute on chronic renal insufficiency Essential hypertension Surgical History Surgical History History of bilateral tubal ligation History of renal stent Renal transplant recipient Family History Family History Mother Hypertension Sibling Hypertension Social History Social History Smoking packs per day: 0.5 Smoking cigarettes per day: 10.0 Years smoked: 12 Smoking pack-years: 6.00 Smoking status: Former smoker Tobacco type: cigarettes Alcohol intake: never Substance use: never Substance use type: does not use Current Housing: Decline to Answer Concerned About Future Housing: Decline to Answer Difficulty Paying Gas/Electric Bills: Decline to Answer Difficulty Paying for Meds: Decline to Answer Currently Unemployed: Decline to Answer Difficulty w/ Childcare or Family Care: Decline to Answer Gender identity (if verbalized by the patient): Female Spiritual care concerns: No Agree to blood products: Yes Anes - Eval Final PreProcedure Day of Procedure 06/24/24 11:43 Patient weight: obese Lungs: normal air movement Airway: Mallampati scale class II Neurological: alert and oriented Last oral intake: >/= 8 hours ASA classification: IV Emergent: no Anesthetic plan: proceed Anesthesia type and monitoring: general GIVS and standard monitoring Results Review: All pre-operative results and documents have been reviewed as part of the pre-operative evaluation. HTN, hyperlipidemia, NEREYDA, ESRD on HD, done yesterday. Informed Consent: The patient's anesthetic plan and its attendant risks and benefits were discussed with the patient/family/POA. Questions were solicited and answers provided to the satisfaction of the patient/family/POA.
[2024-06-24] MEDS: SODIUM CHLORIDE 0.9% IV 500 ML 10 ML IV CONT (11:51)
--- NOTE | 2024-06-24 11:55 | PM.IMHP ---
H&P: HPI History of Present Illness Date/Time: 06/24/24 11:55 Chief Complaint: History of colon polyps Narrative: The patient has a history of colonic polyps, the last colonoscopy was approximately 5 years ago. Review of Systems Review of Systems: All systems reviewed & are unremarkable except as noted in HPI and below PMFSH Past Medical History Medical History Hemodialysis patient Chronic renal insufficiency, stage V H/O thyroid nodule Chronic renal insufficiency, stage IV (severe) Anemia in chronic kidney disease (CKD) Vitamin B12 deficiency Folic acid deficiency Acute on chronic renal insufficiency Essential hypertension Surgical History Surgical History History of bilateral tubal ligation History of renal stent Renal transplant recipient Family History Family History Mother Hypertension Sibling Hypertension Social History Social History Smoking packs per day: 0.5 Smoking cigarettes per day: 10.0 Years smoked: 12 Smoking pack-years: 6.00 Smoking status: Former smoker Tobacco type: cigarettes Alcohol intake: never Substance use: never Substance use type: does not use Current Housing: Decline to Answer Concerned About Future Housing: Decline to Answer Difficulty Paying Gas/Electric Bills: Decline to Answer Difficulty Paying for Meds: Decline to Answer Currently Unemployed: Decline to Answer Difficulty w/ Childcare or Family Care: Decline to Answer Gender identity (if verbalized by the patient): Female Spiritual care concerns: No Agree to blood products: Yes Meds Home Medications and Allergies Home Medications ?Medication ?Instructions ?Recorded ?Confirmed ?Type prednisone 5 mg tablet 5 mg PO DAILY 01/24/20 06/24/24 History inhalational spacing device #1 ea 08/13/21 06/10/24 Rx ([employer] Aerochamber) folic acid 1 mg tablet 1 mg PO DAILY #30 tabs 12/26/21 06/24/24 Rx furosemide 80 mg tablet 80 mg PO BID #60 tabs 12/26/21 06/24/24 Rx calcitriol 0.5 mcg capsule 0.5 mcg PO 3XW 08/26/22 06/24/24 History tramadol 50 mg tablet 50 mg PO Q6H PRN pain #30 tabs 01/13/24 06/18/24 Rx amlodipine 10 mg tablet 10 mg PO DAILY #90 tabs 01/26/24 06/24/24 Rx labetalol 200 mg tablet 200 mg PO TID #270 tabs 01/27/24 06/24/24 Rx tacrolimus 1 mg capsule, 8 mg (8 x 1 mg) PO BID #60 caps 04/02/24 06/24/24 Rx immediate-release atorvastatin 10 mg tablet (Lipitor) 10 mg PO QHS #90 tabs 05/10/24 06/24/24 Rx ethyl chloride 100 % topical spray 1 applic topical ONCE #116 mL 05/26/24 06/24/24 Rx Allergies Allergy/AdvReac Type Severity Reaction Status Date / Time iodine Allergy Mild Unknown Verified 06/24/24 11:16 losartan AdvReac Severe diarrhea, Verified 06/24/24 11:16 fatigue mycophenolic acid (From AdvReac Severe transplant Verified 06/24/24 11:16 Myfortic) rejection, BK virus allopurinol AdvReac Mild urinary Verified 06/24/24 11:16 retention Vital Signs Vital Signs - 24 hr 06/24/24 11:17 Temperature 96.4 F L Pulse Rate 70 Respiratory Rate 20 Blood Pressure 117/69 Pulse Oximetry 100 Oxygen Delivery Room Air Exam Const: General: cooperative and healthy appearing Resp: Effort & Inspection: normal respiratory effort and able to speak in complete sentences Auscultation: clear to auscultation bilaterally Cardio: Rate: regular rate Rhythm: regular rhythm GI: Inspection: normal to inspection GI Palp: No No hepatosplenomegaly present Auscultation: normal bowel sounds Rectal Exam: deferred Skin: General skin exam: normal color Psych: Appearance: grossly normal Mental Status: mental status grossly normal Assessment and Plan Assessment and plan (1) Colon cancer screening: Code(s): Z12.11 - Encounter for screening for malignant neoplasm of colon Status: Acute Assessment and Plan: The patient is deemed a good candidate for the procedure. Consent signed. Will proceed.
[2024-06-24 12:22] VITALS: BP 90/49; PULSE 68; RESP 20; O2SAT 100
[2024-06-24 12:32] VITALS: BP 104/76; PULSE 74; RESP 18; O2SAT 99
[2024-06-24 12:42] VITALS: BP 115/72; PULSE 72; RESP 18; O2SAT 100
== END 2024-06-24 12:57 | disposition home or self-care (01) ==
PROVIDERS: PCP Family Medicine; Referring Provider Family Medicine; Visit Provider Internal Medicine Gastroenterology
PROC: 0DJD8ZZ Inspection of Lower Intestinal Tract, Via Natural or Artificial Opening Endoscopic (ICD-10-PCS; CPT 45378; principal; 2024-06-24 11:30)
DX: Z12.11 Encounter for screening for malignant neoplasm of colon (principal); D37.8 Neoplasm of uncertain behavior of other specified digestive organs; K57.30 Diverticulosis of large intestine without perforation or abscess without bleeding; Z86.0100 Personal history of colon polyps, unspecified; Z87.891 Personal history of nicotine dependence; E66.9 Obesity, unspecified; Z68.34 Body mass index [BMI] 34.0-34.9, adult
CPT/HCPCS: 45378; J2003; J2371; J2704; J7040

== ENCOUNTER 2024-08-03 08:30 | Outpatient (CLI) | payer MEDICARE, OTHER, SELFPAY ==
--- NOTE | 2024-08-03 08:34 | ECG_ITS ---
Test Date: 2024-08-03 09:08:09 Measurements Intervals [place] Rate: 71 P: -19 RI: 142 QRS: 13 QRSD: 104 T: 50 QT: 418 QTc: 456 Interpretive Statements SINUS RHYTHM DELAYED PRECORDIAL R/S TRANSITION BASELINE ARTIFACT- I, II, III, AVR, AVL, AVF, V3-V4 BORDERLINE ECG No previous ECG available for comparison Electronically Signed On 08-03-2024 09:10:53 CDT by Venkat Estrada D.O.
--- OUTSIDE RECORDS SUMMARY | 2024-08-03 08:43 | XMS_ITS | Encounter Summary ---
Author Organization [facility] Address [address] [place] [address] Phone Care Team Providers Care Unit Clerk Name Role Phone Nikkie Gordon MD Primary Care Provider [phone] Encounter Details Date Type Department Care Team (Late st Contact Info) Description 08/13/2019 Orders Only [facility] [address] [place] [address] Trisha Bustillos MA [address] [place] [address] Chronic kidney disease, stage 3 (moderate) ([facility]) Social History Tobacco Use Types [...] (moderate) documented in this encounter Care Teams Unit Clerk Relationship Specialty Start Date End Date Nikkie Gordon MD [address] [place] [address] PCP - General 01/24/20 documented as of this encounter
--- OUTSIDE RECORDS SUMMARY | 2024-08-03 08:43 | XMS_ITS | Encounter Summary ---
Author Organization [facility] Address [address] [place] [address] Phone Care Team Providers Care Category Development Manager Name Role Phone Nikkie Gordon MD Primary Care Provider [phone] Encounter Details Date Type Department Care Team ([facility] Contact Info) Description 04/23/2019 Orders Only [facility]. [address] [place] [address] Trisha Bustillos MA [address] [place] [address] Chronic kidney disease, stage 3 (moderate) ([facility]) Social History Tobacco Use Types Packs/Day Years [...] (moderate) documented in this encounter Care Teams Category Development Manager Relationship Specialty Start Date End Date Nikkie Gordon MD [address] [place] [address] PCP - General 01/24/20 documented as of this encounter
--- OUTSIDE RECORDS SUMMARY | 2024-08-03 08:43 | XMS_ITS ---
Author Organization [facility] Building [address] Address [address] [place] [address] Care Team Providers Care Coin Purse Assembler Name Role Phone Nikkie Gordon MD Primary Care Provider [phone] Nikkie Gordon MD Unavailable [phone] Susan Jones MD Unavailable [phone] Kristian Ram MD Unavailable [phone] Chelo Herzog RN Unavailable Davidson Martinez MD Unavailable [phone] Tyson Bales MD Unavailable Kristian Ram MD Unavailable [phone] Anna Clarke MD Unavailable [phone] Dialysis Access Sites Type Status Location Placement Date Removal Da te AV fistula Active Left Forearm - Anterior Hemodialysis Cath Double 02/13/24 Tunneled catheter Right Subclavian Active Right Breast - Upper 02/13/2024 Hemodialysis AV Access Forearm Inactive Left Forearm - Anterior 10/25/2018 Procedures Procedure Name Priority Date/Time Associated Diagnosis Comments TACROLIMUS, HIGHLY SENSITIVE, LC/MS/MS Routine 07/20/2024 8:35 AM CDT PROTEIN / CREATININE RATIO, URINE, RANDOM Routine 07/20/2024 8:35 AM CDT RENAL FUNCTION PANEL Routine 07/20/2024 8:35 AM CDT CBC WITH AUTO DIFFERENTIAL Routine 07/20/2024 8:35 AM CDT COPY(IES) SENT TO: Routine 07/20/2024 8: 35 AM CDT CYTOMEGALOVIRUS (CMV) DNA, QUANT GEN LAB Routine 07/20/2024 8:35 AM CDT BK VIRUS, DNA, QUANTITATIVE Routine 07/20/2024 8:35 AM CDT TACROLIMUS, HIGHLY SENSITIVE, LC/MS/MS Routine 06/15/2024 10:01 AM SENIOR SUPPORT ENGINEER PROTEIN / CREATININE RATIO, URINE, RANDOM Routine 06/15/2024 10:01 AM SENIOR SUPPORT ENGINEER RENAL FUNCTION PANEL Routine 06/15/2024 10:01 AM SENIOR SUPPORT ENGINEER CBC WITH AUTO DIFFERENTIAL Routine 06/15/2024 10:01 AM SENIOR SUPPORT ENGINEER COPY(IES) SENT TO: Routine 06/15/2024 10:01 AM SENIOR SUPPORT ENGINEER BK VIRUS, DNA, QUANTITATIVE Routine 06/15/2024 10:01 AM SENIOR SUPPORT ENGINEER CYTOMEGALOVIRUS (CMV) DNA, QUANT GEN LAB Routine 06/15/2024 10:01 AM SENIOR SUPPORT ENGINEER PROTEIN / CREATININE RATIO, URINE, RANDOM Routine 05/11/2024 8:55 AM SENIOR SUPPORT ENGINEER RENAL FUNCTION PANEL Routine 05/11/2024 8:55 AM SENIOR SUPPORT ENGINEER TACROLIMUS, HIGHLY SENSITIVE, LC/MS/MS Routine 05/11/2024 8:55 AM SENIOR SUPPORT ENGINEER CBC WITH AUTO DIFFERENTIAL Routine 05/11/2024 8:55 AM SENIOR SUPPORT ENGINEER COPY(IES) SENT TO: Routine 05/11/2024 8: 55 AM SENIOR SUPPORT ENGINEER CYTOMEGALOVIRUS (CMV) DNA, QUANT GEN LAB Routine 05/11/2024 8:55 AM SENIOR SUPPORT ENGINEER BK VIRUS, DNA, QUANTITATIVE Routine 05/11/2024 8:55 AM SENIOR SUPPORT ENGINEER HEPATITIS PANEL, ACUTE STAT 4 10:00 AM [...] ischemia. - Stop trending AV fistula thrombosis 12/30/2023 Assessment & Plan (01/01/2024 9:49 AM [...] - Trend Sepsis due to undetermined organism 12/01/2023 Shortness of breath 04/23/2023 Hyperkalemia 04/21/2023 Gross hematuria 03/14/2023 Dialysis patient 03/02/2023 Morbid obesity 03/01/2023 Assessment & Plan (03/02/2023 12:00 PM SENIOR SUPPORT ENGINEER): Body mass index is 34.15 kg/m . - discussed risks of obesity and association with chronic medical problems including HTN, DM, and NEREYDA - advised patient on importance of maintaining a diet and exercise regimen including cardiovascular and weight-bearing exercises - nutrition consultation Physical deconditioning 06/01/2021 Assessment & Plan (06/07/2021 2:29 PM SENIOR SUPPORT ENGINEER): Multifactorial but mostly driven by her neuropathy and malnutrition - PT/OT recommending SNF. Pt not amenable. - Home PT/OT with 24 hr supervision. States son can provide supervision. Assessment & Plan (06/06/2021 2:58 PM SENIOR SUPPORT ENGINEER): Multifactorial but mostly driven by her neuropathy -PT/OT recommending SNF. Pt not amenable. Assessment & Plan (06/05/2021 7:10 PM SENIOR SUPPORT ENGINEER): Multifactorial but mostly driven by her neuropathy -PT/OT recommending SNF, she is considering but may still elect to discharge home Assessment & Plan (06/04/2021 9:50 AM SENIOR SUPPORT ENGINEER): Multifactorial but mostly driven by her neuropathy -PT/OT recommending SNF, she is considering but may still elect to discharge home Assessment & Plan (06/03/2021 10:29 AM SENIOR SUPPORT ENGINEER): Multifactorial but mostly driven by her neuropathy -PT/OT recommending SNF, she is considering but may still elect to discharge home Assessment & Plan (06/02/2021 12:57 PM SENIOR SUPPORT ENGINEER): Multifactorial but mostly driven by her neuropathy -PT/OT recommending SNF, she is considering but may still elect to discharge home Assessment & Plan (06/01/2021 12:38 PM SENIOR SUPPORT ENGINEER): Multifactorial but mostly driven by her neuropathy -PT/OT recommending SNF, she is considering but may still elect to discharge home Pyelonephritis of transplanted kidney vs UTI 06/2021 Assessment & Plan (06/07/2021 2:25 PM SENIOR SUPPORT ENGINEER): Spiked temperature of 38.2 on 05/30 once [...] complete a 2 week antibiotic course (EOT 2/22) - Will need CBC and CMP weekly while on cipro. Will also need EKG in 1 week to monitor for QTc prolongation. CM to arrange appointment with PCP in 1 week. - Will need repeat renal US in 2 weeks to evaluate resolution of renal fluid collection Assessment & Plan (06/06/2021 2:50 PM SENIOR SUPPORT ENGINEER): Spiked temperature of 38.2 on 05/30 once [...] ) Assessment & Plan (06/05/2021 7:14 PM SENIOR SUPPORT ENGINEER): Spiked temperature of 38.2 on 05/30 once [...] duration. Assessment & Plan (06/04/2021 9:51 AM SENIOR SUPPORT ENGINEER): Spiked temperature of 38.2 on 05/30 once [...] sample Assessment & Plan (06/03/2021 10:33 AM SENIOR SUPPORT ENGINEER): Spiked temperature of 38.2 on 05/30 once [...] cultures Assessment & Plan (06/02/2021 12:53 PM SENIOR SUPPORT ENGINEER): Spiked temperature of 38.2 on 05/30 once [...] resulting Assessment & Plan (06/01/2021 12:34 PM SENIOR SUPPORT ENGINEER): Spiked temperature of 38.2 on 05/30 once [...] cultures Assessment & Plan (05/31/2021 8:40 AM SENIOR SUPPORT ENGINEER): Spiked temperature overnight of 38.2 once scheduled [...] 05/28/2021 Assessment & Plan (06/06/2021 2:58 PM SENIOR SUPPORT ENGINEER): Poor appetite, encourage protein supplementations. Nutrition consult Assessment & Plan (06/05/2021 7:16 PM SENIOR SUPPORT ENGINEER): Poor appetite, encourage protein supplementations. Nutrition consult Assessment & Plan (06/04/2021 9:52 AM SENIOR SUPPORT ENGINEER): Poor appetite, encourage protein supplementations. Nutrition consult Assessment & Plan (06/03/2021 10:29 AM SENIOR SUPPORT ENGINEER): Poor appetite, encourage protein supplementations. Nutrition consult Assessment & Plan (06/02/2021 12:55 PM SENIOR SUPPORT ENGINEER): Poor appetite, encourage protein supplementations. Nutrition consult Assessment & Plan (06/01/2021 12:36 PM SENIOR SUPPORT ENGINEER): Poor appetite, encourage protein supplementations. Nutrition consult Assessment & Plan (05/31/2021 11:07 AM SENIOR SUPPORT ENGINEER): Poor appetite, encourage protein supplementations. Nutrition consult Assessment & Plan (05/30/2021 10:51 AM SENIOR SUPPORT ENGINEER): Poor appetite, encourage protein supplementations. Nutrition consult Assessment & Plan (05/29/2021 1:35 PM SENIOR SUPPORT ENGINEER): Poor appetite, encourage protein supplementations. Nutrition consult Leg pain, bilateral 05/26/2021 Assessment & Plan (06/07/2021 2:27 PM SENIOR SUPPORT ENGINEER): According to the patient, this began with [...] amenable. Assessment & Plan (06/06/2021 2:54 PM SENIOR SUPPORT ENGINEER): According to the patient, this began with [...] amenable. Assessment & Plan (06/05/2021 7:17 PM SENIOR SUPPORT ENGINEER): According to the patient, this began with [...] DVT Assessment & Plan (06/04/2021 9:49 AM SENIOR SUPPORT ENGINEER): According to the patient, this began with [...] DVT Assessment & Plan (06/03/2021 10:29 AM SENIOR SUPPORT ENGINEER): According to the patient, this began with [...] DVT Assessment & Plan (06/02/2021 1:01 PM SENIOR SUPPORT ENGINEER): According to the patient, this began with [...] DVT Assessment & Plan (06/01/2021 12:38 PM SENIOR SUPPORT ENGINEER): According to the patient, this began with [...] DVT Assessment & Plan (05/31/2021 11:07 AM SENIOR SUPPORT ENGINEER): According to the patient, this began with [...] DVT Assessment & Plan (05/30/2021 10:50 AM SENIOR SUPPORT ENGINEER): According to the patient, this began with [...] DVT Assessment & Plan (05/29/2021 1:33 PM SENIOR SUPPORT ENGINEER): According to the patient, this began with [...] DVT Assessment & Plan (05/28/2021 10:52 AM SENIOR SUPPORT ENGINEER): According to the patient, this began with [...] sciatica Assessment & Plan (05/27/2021 9:49 AM SENIOR SUPPORT ENGINEER): According to the patient, this began with swelling after her recent discharge from the hospital after Medications were changed (diuretics). Tramadol is effective for her. Will start with tramadol 25 mg TID prn. Monitor edema and sxs. Pt walks with walker, PT/OT evaluations Dopplers to r/o DVT s/p COVID Assessment & Plan (05/26/2021 5:26 PM SENIOR SUPPORT ENGINEER): According to the patient, this began with swelling after her recent discharge from the hospital after Medications were changed (diuretics). Tramadol is effective for her. Will start with tramadol 25 mg TID prn. Monitor edema and sxs. Pt walks with walker, PT/OT evaluations Pneumonia due to COVID-19 virus 05/10/2021 Assessment & Plan (05/15/2021 2:07 PM SENIOR SUPPORT ENGINEER): Symptom onset 05/02/21, positive test 05/09 at OSH (see care everywhere for confirmation) Cont O2, wean as able Cont decadron (d#1=05/10) Remdesivir continued w renal txp's blessing, s/p 5 days VTE ppx with SQ heparin Assessment & Plan (05/14/2021 3:22 PM SENIOR SUPPORT ENGINEER): Symptom onset 05/02/21, positive test 05/09 at OSH (see care everywhere for confirmation) Cont O2, wean as able Cont decadron (d#1=05/10) Remdesivir continued w renal txp's blessing, d#5 today VTE ppx with SQ heparin Assessment & Plan (05/13/2021 11:08 AM SENIOR SUPPORT ENGINEER): Symptom onset 05/02/21, positive test 05/09 at OSH (see care everywhere for confirmation) Cont O2, wean as able Cont decadron (d#1=05/10) Remdesivir continued w renal txp's blessing, d#4 today VTE ppx with SQ heparin Assessment & Plan (05/12/2021 12:01 PM SENIOR SUPPORT ENGINEER): Symptom onset 05/02/21, positive test 05/09 at OSH (see care everywhere for confirmation) Cont O2, wean as able Cont decadron (d#1=05/10) Remdesivir continued w renal txp's blessing, d#3 today VTE ppx with SQ heparin Assessment & Plan (05/11/2021 1:29 PM SENIOR SUPPORT ENGINEER): Onset of symptoms ~05/02/21 with worsening dyspnea, fatigue and progressive symptoms prompting presentation. Now on 5L supplemental oxygen. Tested positive for COVID 05/09/21 -dexamethasone 6mg daily (05/10/20- -discussed remdesivir with renal transplant, started 05/10-- closely monitoring liver enzymes and for bradycardia and seizures -wean supplemental O2 as able Well woman exam 04/04/2021 Assessment & Plan (04/04/2021 12:24 PM SENIOR SUPPORT ENGINEER): Pap done secondary to last one being remote and she is immuno-supressed after her transplant. RTO 12m. I will send the results to the portal. If she has not heard in a week, to call the office. Breast swelling 04/04/2021 Assessment & Plan (04/04/2021 3:20 PM SENIOR SUPPORT ENGINEER): She is s/p bx. I will look [...] 04/04/2021 Assessment & Plan (04/04/2021 3:20 PM SENIOR SUPPORT ENGINEER): The patient was encouraged to stop smoking. Techniques for smoking cessation were discussed to the patient's level of interest. Preoperative testing 11/09/2020 Hydrohepatosis 09/22/2020 Overview (09/22/2020): Added automatically from request for surgery [id number] Hypernatremia 08/05/2020 Assessment & Plan (08/05/2020 11:08 AM CDT): Due to Na bicarb drip ordered for correction of metabolic acidosis. - discontinue bicarb drip - will likely resolve, no need for further testing unless otherwise indicated Hydronephrosis, right 09/21/2019 Overview (09/21/2019): Added automatically from request for surgery [id number] Other proteinuria 05/05/2019 Obstruction of right ureter 02/19/2019 Overview (02/19/2019): Added automatically from request for surgery [id number] Obesity, Class II, BMI 35-39.9 01/29/2019 Assessment & Plan (05/27/2021 9:48 AM SENIOR SUPPORT ENGINEER): RD consult while here for diet education Pt has low appetite, not eating much Supplements ordered Assessment & Plan (05/26/2021 5:17 PM SENIOR SUPPORT ENGINEER): RD consult while here for diet education Hydronephrosis 12/11/2018 Overview (12/11/2018): Added automatically from request for surgery [id number] Uterine fibroid 12/02/2018 Assessment & Plan (12/05/2018 [...] 11/30/2018 Assessment & Plan (05/28/2021 10:50 AM SENIOR SUPPORT ENGINEER): Continue iron supplements Assessment & Plan (05/27/2021 9:47 AM SENIOR SUPPORT ENGINEER): Continue iron supplements Assessment & Plan (05/26/2021 5:18 PM SENIOR SUPPORT ENGINEER): Continue iron supplements Assessment & Plan (12/05/2018 [...] (11/27/2018): Added automatically from request for surgery [id number] Assessment & Plan (12/31/2023 9:55 AM CDT): [...] electives. Assessment & Plan (06/07/2021 2:28 PM SENIOR SUPPORT ENGINEER): History of ureteral obstruction from known fibroid and having ureteral exchanges every 3 months with urology (next scheduled on 06/06). - Urethral stent exchanged 06/05. - Follow up with urology outpatient Assessment & Plan (06/06/2021 2:53 PM SENIOR SUPPORT ENGINEER): History of ureteral obstruction from known fibroid and having ureteral exchanges every 3 months with urology (next scheduled on 06/06). - Urethral stent exchanged 06/05. Assessment & Plan (06/05/2021 7:15 PM SENIOR SUPPORT ENGINEER): History of ureteral obstruction from known fibroid and having ureteral exchanges every 3 months with urology (next scheduled on 06/06). - Urethral stent exchanged 06/05. Assessment & Plan (06/04/2021 9:47 AM SENIOR SUPPORT ENGINEER): History of ureteral obstruction from known fibroid and having ureteral exchanges every 3 months with urology (next scheduled on 06/06). -Discussed with urology here as her exchange is actually scheduled for [facility] [place] and they are going to try and fit her on the OR schedule here -Will need to be NPO on Friday night Assessment & Plan (06/03/2021 10:28 AM SENIOR SUPPORT ENGINEER): History of ureteral obstruction from known fibroid and having ureteral exchanges every 3 months with urology (next scheduled on 06/06). Assessment & Plan (06/02/2021 12:53 PM SENIOR SUPPORT ENGINEER): History of ureteral obstruction from known fibroid and having ureteral exchanges every 3 months with urology (next scheduled on 06/06). Assessment & Plan (06/01/2021 12:35 PM SENIOR SUPPORT ENGINEER): History of ureteral obstruction from known fibroid and having ureteral exchanges every 3 months with urology (next scheduled on 06/06). Assessment & Plan (05/31/2021 11:06 AM SENIOR SUPPORT ENGINEER): History of ureteral obstruction from known fibroid and having ureteral exchanges every 3 months with urology (next scheduled on 06/06). Assessment & Plan (05/30/2021 10:48 AM SENIOR SUPPORT ENGINEER): History of ureteral obstruction from known fibroid and having ureteral exchanges every 3 months with urology (next scheduled on 06/06). Assessment & Plan (05/29/2021 1:31 PM SENIOR SUPPORT ENGINEER): History of ureteral obstruction from known fibroid and having ureteral exchanges every 3 months with urology (next scheduled on 06/06). Assessment & Plan (05/28/2021 10:50 AM SENIOR SUPPORT ENGINEER): ureteral obstruction from known fibroid and having ureteral exchanges every 3 months with urology (next scheduled on 06/06). Assessment & Plan (05/27/2021 9:47 AM SENIOR SUPPORT ENGINEER): ureteral obstruction from known fibroid and having ureteral exchanges every 3 months with urology (next scheduled on 06/06). Assessment & Plan (05/26/2021 5:16 PM SENIOR SUPPORT ENGINEER): ureteral obstruction from known fibroid and having [...] not think this is the case. - Cytogeneticist consulted for uterine fibroid - MRI Pelvis W/O contrast - Management of stent per urology. Assessment & Plan (11/29/2018 12:15 PM CDT): Renal U/S at OSH with hydronephrosis of transplanted kidney now s/p ureteral stent by urology 11/28. Found to have extrinsic compression of ureter from likely uterine fibroid. -Management of stent per urology. -Agree with non-emergent fly finisher consult for management of fibroids. Hyperlipidemia, unspecified 11/27/2018 Assessment & Plan (03/02/2023 12:01 PM SENIOR SUPPORT ENGINEER): Continue patient's home atorvastatin 10 mg daily Hypertension, essential 11/27/2018 Assessment & Plan (05/14/2021 3:24 PM SENIOR SUPPORT ENGINEER): Continue home amlodipine, labetalol Assessment & Plan (05/10/2021 1:21 AM SENIOR SUPPORT ENGINEER): Continue home amlodipine, labetalol Assessment & Plan [...] 11/27/2018 Assessment & Plan (06/07/2021 2:27 PM SENIOR SUPPORT ENGINEER): S/p renal transplant (2007, b/l Cr 2.7-3.4) [...] 06/21. Assessment & Plan (06/06/2021 2:52 PM SENIOR SUPPORT ENGINEER): S/p renal transplant (2007, b/l Cr 2.7-3.4) [...] qday Assessment & Plan (06/05/2021 7:09 PM SENIOR SUPPORT ENGINEER): S/p renal transplant (2007, b/l Cr 2.7-3.4) [...] monitoring Assessment & Plan (06/04/2021 9:52 AM SENIOR SUPPORT ENGINEER): S/p renal transplant (2007, b/l Cr 2.7-3.4) [...] monitoring Assessment & Plan (06/03/2021 10:29 AM SENIOR SUPPORT ENGINEER): S/p renal transplant (2007, b/l Cr 2.7-3.4) [...] monitoring Assessment & Plan (06/02/2021 12:55 PM SENIOR SUPPORT ENGINEER): S/p renal transplant (2007, b/l Cr 2.7-3.4) [...] monitoring Assessment & Plan (06/01/2021 12:37 PM SENIOR SUPPORT ENGINEER): S/p renal transplant (2007, b/l Cr 2.7-3.4) [...] monitoring Assessment & Plan (05/31/2021 8:40 AM SENIOR SUPPORT ENGINEER): S/p renal transplant (2007, b/l Cr 2.7-3.4) [...] monitoring. Assessment & Plan (05/30/2021 10:52 AM SENIOR SUPPORT ENGINEER): S/p renal transplant (2007, b/l Cr 2.7-3.4) [...] monitoring. Assessment & Plan (05/29/2021 1:36 PM SENIOR SUPPORT ENGINEER): S/p renal transplant (2007, b/l Cr 2.7-3.4) [...] monitoring. Assessment & Plan (05/28/2021 10:53 AM SENIOR SUPPORT ENGINEER): s/p renal transplant (2007, b/l Cr 2.7-3.4) [...] following/managing Assessment & Plan (05/27/2021 9:46 AM SENIOR SUPPORT ENGINEER): s/p renal transplant (2007, b/l Cr 2.7-3.4) [...] following/managing Assessment & Plan (05/26/2021 5:11 PM SENIOR SUPPORT ENGINEER): s/p renal transplant (2007, b/l Cr 2.7-3.4) [...] following/managing Assessment & Plan (05/15/2021 2:07 PM SENIOR SUPPORT ENGINEER): ESRD 2/2 hypertensive nephrosclerosis s/p renal transplant (2007, b/l Cr 2.7- 3.4) Tacrolimus trough above goal, decreased dose 5mg bid Renal transplant service comanaging (nb home dose 9am/8pm) Home prednisone 5mg daily held while on dexamethasone Has been off myfortic (h/o bk/cmv viremia) Assessment & Plan (05/14/2021 3:22 PM SENIOR SUPPORT ENGINEER): ESRD 2/2 hypertensive nephrosclerosis s/p renal transplant (2007, b/l Cr 2.7- 3.4) Tacrolimus trough above goal, decreased dose 5mg bid Renal transplant service comanaging (nb home dose 9am/8pm) Home prednisone 5mg daily held while on dexamethasone Has been off myfortic (h/o bk/cmv viremia) Assessment & Plan (05/13/2021 11:09 AM SENIOR SUPPORT ENGINEER): ESRD 2/2 hypertensive nephrosclerosis s/p renal transplant (2007, b/l Cr 2.7- 3.4) Tacrolimus trough above goal, decreased dose 5mg bid Renal transplant service comanaging (nb home dose 9am/8pm) Home prednisone 5mg daily held while on dexamethasone Assessment & Plan (05/12/2021 12:01 PM SENIOR SUPPORT ENGINEER): ESRD 2/2 hypertensive nephrosclerosis s/p renal transplant [...] following Assessment & Plan (05/11/2021 1:16 PM SENIOR SUPPORT ENGINEER): ESRD 2/2 hypertensive nephrosclerosis s/p renal transplant [...] (12/05/2018 2:28 PM CDT): Renal transplant at [facility] ([place], [place]), followed now reportedly by Dr. Rome Ram [...] with information in Care Everywhere from her dinkey dispatcher. She has not seen Dr. Ram yet. She has had 3 no shows. 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 Tac goal 4-7 per notes - BMP and tac trough on Friday per Transplant nephrology, [facility] and have faxed to PCP, script provided - Discharge today. I have paged her primary dinkey dispatcher office. I have faxed the d/c summary to her PCP as well. Assessment & Plan (12/04/2018 10:32 AM CDT): Renal transplant at [facility] ([place], [place]), followed now reportedly by Dr. Rome Ram [...] with information in Care Everywhere from her dinkey dispatcher. She has not seen Dr. Ram yet. She has had 3 no shows. 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 Tac goal 4-7 per notes - Further mgmt of MARIBELL per nephrology. Assessment & Plan (12/03/2018 10:35 AM CDT): Renal transplant at [facility] ([place], [place]), followed now reportedly by Dr. Rome Ram although his clinic stated she has not been seen there and has no showed the last 3 clinic appts. - Patient has a second chart - Ronan Moreira with information in Care Everywhere from her dinkey dispatcher. She has not seen Dr. Ram yet. [...] (12/02/2018 12:03 PM CDT): Renal transplant at [facility] ([place], [place]), followed now reportedly by Dr. Rome Ram [...] (12/01/2018 5:23 PM CDT): Renal transplant at [facility] ([place], [place]), followed now by Dr. Rome Ram. Reported baseline cr 1.3 - Transplant nephrology following, mgmt of immunosuppression per their team - Tac level in AM (low today) - Attempting to obtain records from Dr. Ram Assessment & Plan (11/30/2018 5:38 PM CDT): Renal transplant at [facility] ([place], [place]), followed now by Dr. Rome Ram. Reported baseline cr 1.3 - Transplant nephrology following, mgmt of immunosuppression per their team Acute on chronic diastolic (congestive) heart fa ilure 11/27/2018 Assessment & Plan (06/07/2021 2:28 PM SENIOR SUPPORT ENGINEER): TTE (02/2021) with EF 70%, nl RV/LV size and systolic function and moderate pericardia effusion without collapse (managed conservatively with diuresis). -Repeat TTE with EF 70%, impaired relaxation and stable moderate pericardial effusion -Continue BP control and no signs of volume overload currently Assessment & Plan (06/06/2021 2:57 PM SENIOR SUPPORT ENGINEER): TTE (02/2021) with EF 70%, nl RV/LV size and systolic function and moderate pericardia effusion without collapse (managed conservatively with diuresis). -Repeat TTE with EF 70%, impaired relaxation and stable moderate pericardial effusion -Continue BP control and no signs of volume overload currently Assessment & Plan (06/05/2021 7:15 PM SENIOR SUPPORT ENGINEER): TTE (02/2021) with EF 70%, nl RV/LV size and systolic function and moderate pericardia effusion without collapse (managed conservatively with diuresis). -Repeat TTE with EF 70%, impaired relaxation and stable moderate pericardial effusion -Continue BP control and no signs of volume overload currently Assessment & Plan (06/04/2021 9:42 AM SENIOR SUPPORT ENGINEER): TTE (02/2021) with EF 70%, nl RV/LV size and systolic function and moderate pericardia effusion without collapse (managed conservatively with diuresis). -Repeat TTE with EF 70%, impaired relaxation and stable moderate pericardial effusion -Continue BP control and no signs of volume overload currently Assessment & Plan (06/03/2021 10:27 AM SENIOR SUPPORT ENGINEER): TTE (02/2021) with EF 70%, nl RV/LV size and systolic function and moderate pericardia effusion without collapse (managed conservatively with diuresis). -Repeat TTE with EF 70%, impaired relaxation and stable moderate pericardial effusion -Continue BP control and no signs of volume overload currently Assessment & Plan (06/02/2021 12:50 PM SENIOR SUPPORT ENGINEER): TTE (02/2021) with EF 70%, nl RV/LV size and systolic function and moderate pericardia effusion without collapse (managed conservatively with diuresis). -Repeat TTE with EF 70%, impaired relaxation and stable moderate pericardial effusion -Continue BP control and no signs of volume overload currently Assessment & Plan (06/01/2021 12:32 PM SENIOR SUPPORT ENGINEER): TTE (02/2021) with EF 70%, nl RV/LV size and systolic function and moderate pericardia effusion without collapse (managed conservatively with diuresis). -Repeat TTE with EF 70%, impaired relaxation and stable moderate pericardial effusion -Continue BP control and no signs of volume overload currently Assessment & Plan (05/31/2021 11:04 AM SENIOR SUPPORT ENGINEER): TTE (02/2021) with EF 70%, nl RV/LV size and systolic function and moderate pericardia effusion without collapse (managed conservatively with diuresis). -Repeat TTE with EF 70%, impaired relaxation and stable moderate pericardial effusion -Continue BP control and no signs of volume overload currently Assessment & Plan (05/30/2021 10:47 AM SENIOR SUPPORT ENGINEER): TTE (02/2021) with EF 70%, nl RV/LV size and systolic function and moderate pericardia effusion without collapse (managed conservatively with diuresis). -Repeat TTE with EF 70%, impaired relaxation and stable moderate pericardial effusion -Continue BP control and no signs of volume overload currently Assessment & Plan (05/29/2021 1:31 PM SENIOR SUPPORT ENGINEER): TTE (02/2021) with EF 70%, nl RV/LV size and systolic function and moderate pericardia effusion without collapse (managed conservatively with diuresis). -Repeat TTE with EF 70%, impaired relaxation and stable moderate pericardial effusion -Continue BP control and no signs of volume overload currently Assessment & Plan (05/28/2021 10:49 AM SENIOR SUPPORT ENGINEER): TTE (02/2021) with EF 70%, nl RV/LV size and systolic function and moderate pericardia effusion without collapse (managed conservatively with diuresis). Repeat TTE ordered Assessment & Plan (05/27/2021 9:46 AM SENIOR SUPPORT ENGINEER): TTE (02/2021) with EF 70%, nl RV/LV size and systolic function and moderate pericardia effusion without collapse (managed conservatively with diuresis). Repeat TTE ordered Assessment & Plan (05/26/2021 5:20 PM SENIOR SUPPORT ENGINEER): TTE (02/2021) with EF 70%, nl RV/LV [...] Do not think TTE or HILLARY would change coordinator at this time but patient would likely [...] Do not think TTE or HILLARY would change coordinator at this time but patient would likely [...] Do not think TTE or HILLARY would change coordinator at this time but patient would likely benefit from cardiology input as outpatient. NEREYDA on CPAP 11/27/2018 Assessment & Plan (12/30/2023 11:11 PM CDT): Cont CPAP Assessment & Plan (06/07/2021 2:28 PM SENIOR SUPPORT ENGINEER): Pt uses home nightly CPAP Assessment & Plan (06/06/2021 2:58 PM SENIOR SUPPORT ENGINEER): Pt uses home nightly CPAP Assessment & Plan (06/05/2021 7:15 PM SENIOR SUPPORT ENGINEER): Pt uses home nightly CPAP Assessment & Plan (06/04/2021 9:49 AM SENIOR SUPPORT ENGINEER): Pt uses home nightly CPAP Assessment & Plan (06/03/2021 10:29 AM SENIOR SUPPORT ENGINEER): Pt uses home nightly CPAP Assessment & Plan (06/02/2021 12:54 PM SENIOR SUPPORT ENGINEER): Pt uses home nightly CPAP Assessment & Plan (06/01/2021 12:36 PM SENIOR SUPPORT ENGINEER): Pt uses home nightly CPAP Assessment & Plan (05/31/2021 11:07 AM SENIOR SUPPORT ENGINEER): Pt uses home nightly CPAP Assessment & Plan (05/30/2021 10:50 AM SENIOR SUPPORT ENGINEER): Pt uses home nightly CPAP Assessment & Plan (05/29/2021 1:34 PM SENIOR SUPPORT ENGINEER): Pt uses home nightly CPAP Assessment & Plan (05/28/2021 10:50 AM SENIOR SUPPORT ENGINEER): Pt uses home CPAP Assessment & Plan (05/27/2021 9:47 AM SENIOR SUPPORT ENGINEER): Pt uses home CPAP Assessment & Plan (05/26/2021 5:15 PM SENIOR SUPPORT ENGINEER): Pt uses home CPAP Assessment & Plan [...] failure with preserved ejection fraction 0 10/26/2018 Assessment & Plan (12/30/2023 11:15 PM [...] HD Assessment & Plan (03/02/2023 11:59 AM SENIOR SUPPORT ENGINEER): No signs of exacerbation. Last TTE done [...] ETOH. Assessment & Plan (05/15/2021 2:07 PM SENIOR SUPPORT ENGINEER): Recent admission for pericardial effusion and volume overload. TTE with large pericardial effusion was seen by cardiology and thoracic surgery with plan for conservative management and diuresis Have not directly reimaged pericardial effusion thus far during admission Currently HDS, continue anti-hypertensives Holding Lasix as above Assessment & Plan (05/14/2021 3:23 PM SENIOR SUPPORT ENGINEER): Recent admission for pericardial effusion and volume overload. TTE with large pericardial effusion was seen by cardiology and thoracic surgery with plan for conservative management and diuresis Have not directly reimaged pericardial effusion thus far during admission Currently HDS, continue anti-hypertensives Holding Lasix as above Assessment & Plan (05/13/2021 11:09 AM SENIOR SUPPORT ENGINEER): Recent admission for pericardial effusion and volume overload. TTE with large pericardial effusion was seen by cardiology and thoracic surgery with plan for conservative management and diuresis -currently HDS, continue anti-hypertensives -holding diuretics as elsewhere Assessment & Plan (05/12/2021 12:01 PM SENIOR SUPPORT ENGINEER): Recent admission for pericardial effusion and volume overload. TTE with large pericardial effusion was seen by cardiology and thoracic surgery with plan for conservative management and diuresis -currently HDS, continue anti-hypertensives -holding diuretics as elsewhere Assessment & Plan (05/11/2021 1:14 PM SENIOR SUPPORT ENGINEER): Recent admission for pericardial effusion and volume [...] PM CDT): Patient's s/p DDKT at the [facility] ([place], [place]) in 2007. Of note patient has also been followed at [facility], but most recently continues to follow her care at [facility] since 2016. -Cr somewhat improved with thomas catheter placement. Urology c/s; per their recommendations, d/c and attempt void trial. 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 ([place], [place]) in 2007. Of note patient has also been followed at [facility], but most recently continues to follow her care at [facility] since 2016. -Patient recently admitted in 08/2018 d/t MARIBELL, baseline Cr was 1.2-1.4 until 06/2018 where it has been found to be 2.2-2.8. She was evaluated by urology who recommended IR c/s; and the patient left the hospital AMA -She re-presents to [facility] 10/25 with MARIBELL, BLE edema, and [...] 10/25/2018 Assessment & Plan (03/02/2023 11:59 AM SENIOR SUPPORT ENGINEER): Likely secondary to ESRD. Continue as planned under the ESRD - continue IV iron supplements q 2 weeks. - EPO 26894 units IV t.i.d. Friday on days not getting hemodialysis - CBC daily Assessment & Plan (06/07/2021 2:27 PM SENIOR SUPPORT ENGINEER): Hgb on admission related to anemia of [...] bleed Assessment & Plan (06/05/2021 7:09 PM SENIOR SUPPORT ENGINEER): Hgb on admission related to anemia of [...] bleed Assessment & Plan (06/04/2021 9:42 AM SENIOR SUPPORT ENGINEER): Hgb on admission related to anemia of [...] bleed Assessment & Plan (06/03/2021 10:27 AM SENIOR SUPPORT ENGINEER): Hgb on admission related to anemia of [...] bleed Assessment & Plan (06/02/2021 12:50 PM SENIOR SUPPORT ENGINEER): Hgb on admission related to anemia of [...] bleed Assessment & Plan (06/01/2021 12:32 PM SENIOR SUPPORT ENGINEER): Hgb on admission related to anemia of [...] bleed Assessment & Plan (05/31/2021 11:04 AM SENIOR SUPPORT ENGINEER): Hgb on admission related to anemia of [...] AM Assessment & Plan (05/30/2021 10:45 AM SENIOR SUPPORT ENGINEER): Hgb on admission related to anemia of CKD as well as component of HERNANDEZ. Baseline Hgb ~8 - Hgb matteo of 6.3 and s/p 1 unit PRBCs with improvement to ~7 since - Continue iron supplements - No signs/symptoms of bleeding, continue to monitor & transfuse Hgb <7 - Repeat iron panel/ferritin with AM labs Assessment & Plan (05/29/2021 1:29 PM SENIOR SUPPORT ENGINEER): Hgb on admission related to anemia of CKD as well as component of HERNANDEZ. Baseline Hgb ~8 - Hgb matteo of 6.3 and s/p 1 unit PRBCs with improvement to ~7 since - Continue iron supplements - No signs/symptoms of bleeding, continue to monitor & transfuse Hgb <7 Assessment & Plan (05/28/2021 10:50 AM SENIOR SUPPORT ENGINEER): S/p 1 unit pRBCs 05/26 Recent Labs Lab Units 05/28/21 0519 05/27/21 0433 05/26/21 1308 HEMOGLOBIN g/dL 7.7* 7.7* 7.7* Transfuse prn to keep Hgb>7 Anemia of chronic disease Hgb on admission related to anemia of CKD as well as component of HERNANDEZ. -continue iron supplements Assessment & Plan (05/27/2021 9:47 AM SENIOR SUPPORT ENGINEER): S/p 1 unit pRBCs 05/26 Recent Labs Lab Units 05/27/21 0433 05/26/21 1308 05/26/21 0415 HEMOGLOBIN g/dL 7.7* 7.7* 6.3* Transfuse prn to keep Hgb>7 Anemia of chronic disease Hgb on admission related to anemia of CKD as well as component of HERNANDEZ. -continue iron supplements Assessment & Plan (05/26/2021 5:15 PM SENIOR SUPPORT ENGINEER): S/p 1 unit pRBCs 05/26 Recent Labs Lab Units 05/26/21 1308 05/26/21 0415 HEMOGLOBIN g/dL 7.7* 6.3* Transfuse prn to keep Hgb>7 Anemia of chronic disease Hgb on admission related to anemia of CKD as well as component of HERNANDEZ. -continue iron supplements Assessment & Plan (05/14/2021 3:24 PM SENIOR SUPPORT ENGINEER): Hgb 9.2. Baseline ~8-9 related to anemia of CKD as well as component of HERNANDEZ. -continue iron supplements Assessment & Plan (05/10/2021 1:19 AM SENIOR SUPPORT ENGINEER): Hgb 9.2. 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 Plan [...] 11:39 AM CDT): -s/p DDKT [address] [facility] ([place], [place]) -Immunosuppression: cont tacrolimus 7mg QAM/6mg QPM, prednisone 5. She states she has not been on CellCept or Myfortic since 2007 or 2008. - Renal transplant in agreement with d/c today - Tac trough adequate Assessment & Plan (10/27/2018 4:48 PM CDT): -s/p DDKT [address] [facility] ([place], [place]) -Immunosuppression: cont tacrolimus 7mg QAM/6mg QPM, prednisone 5. She states she has not been on CellCept or Myfortic since 2007 or 2008. - Check tac trough - Followed by renal transplant service Assessment & Plan (10/26/2018 2:45 PM CDT): -s/p DDKT [address] [facility] ([place], [place]) -Immunosuppression: cont tacrolimus 7mg QAM/6mg QPM, prednisone 5. She states she has not been on CellCept or Myfortic since 2007 or 2008. - Check tac trough - Followed by renal transplant service Assessment & Plan (10/25/2018 3:31 AM CDT): -s/p DDKT [address] [facility] ([place], [place]) -Immunosuppression: cont tacrolimus 7mg QAM/6mg QPM, prednisone [...] PTH: 174, 162, End stage renal disease Assessment & Plan (01/01/2024 9:47 AM CDT): [...] drink = 0.6 oz pur e alcohol) [facility] Statities Answer Date Recorded In the past 12 months has [employer], gas, oil, or water [employer] threatened to shut off services in your [...] declined 01/01/2024 How often do you attend scientology or shinto serv ices? Patient declined 01/01/2024 Do you belong to any clubs o r organizations such as scientology groups, unions, fraternal or athletic groups, or [...] place to sleep or slept in a long term (including now)? No 04/23/2023 Housing Stability Vital [...] any time in the past 12 m [facility], were you homeless or living in a long term (including now)? Patient declined 01/01/2024 Personal Safety [...] 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, TRUCK RENTAL SERVICE ATTENDANT, ENRRIQUE) 03/03/2023 Comments No Sex and Gender Information Value Date Recorded Sex Assigned at Not on file Legal Sex Female 1:10 PM SENIOR SUPPORT ENGINEER Gender Identity Not on file Sexual Orientation [...] 87.1 kg (192 lb) 05/05/2024 3:16 PM SENIOR SUPPORT ENGINEER Height 162.6 cm (5' 4 ) 05/05/2024 3:16 PM SENIOR SUPPORT ENGINEER Body Mass Index 32.96 05/05/2024 3:16 PM SENIOR SUPPORT ENGINEER Results * (ABNORMAL) Tacrolimus, Highly Sensitive, LC/MS/MS (07/20/2024 8:35 AM CDT) Pathologist [facility] [place] Tacrolimus, Highly Sensitive, LC/MS/MS <1.0(L) mcg/L [facility] Comment: Verified by repeat analysis. No definitive therapeutic or toxic ranges have been established. Optimal blood drug levels are influenced by type of transplant, patient response, time post- transplant, co-administration of other drugs, and drug formulation. The following trough range is a suggested guideline: 5.0-20.0 mcg/L. 07/20/2024 8:35 AM CDT 07/20/2024 8:37 AM CDT Narrative [facility] - 07/24/2024 2:46 PM CDT LB FASTING:YES FASTING: YES us Bruce Justice MD LAB BLOOD ORDERABLES Final Resu lt [facility] [address] [place] [address] * Cytomegalovirus (CMV) DNA PCR, quantitative (07/20/2024 8:35 AM CDT) [facility] CMV DNA qn Not Detected Not Detected IU/mL [facility] CMV DNA log IU/mL Not Detected Not Detected Log IU/mL [facility] Comment: (Note) For additional information, please refer to http://education.Tiempo Listo.Konbini/faq/CMVandEBVPCR (This link is being provided for informational/educational purposes only.) [facility] [address] [address],[address] [facility] [address] Laurita Deleon MD, PhD 07/20/2024 8:35 AM CDT 07/20/2024 8:37 AM CDT Narrative [facility] - 07/24/2024 2:46 PM CDT LB FASTING:YES FASTING: YES us Bruce Justice MD LAB MICROBIOLOGY - GENERAL ORDE RABLES Final Result Performing Organization Address City/[facility] Co de Phone Number [facility] [address] [place] [address], [address] [place] [phone] * COPY(IES) SENT TO: (07/20/2024 8:35 AM CDT) COPY(IES) SENT TO: [facility] Comment: [facility] - COPY TO [address] [id number] 07/20/2024 8:35 AM CDT 07/20/2024 8:37 AM CDT Narrative [facility] - 07/24/2024 2:46 PM CDT LB FASTING:YES FASTING: YES us Bruce Justice MD LAB BLOOD ORDERABLES Final Resu lt Performing Organization Address [place]/[facility] Co de Phone Number [facility] * (ABNORMAL) BK virus, DNA, quantitative (07/20/2024 8:35 AM CDT) BK virus, PCR <21.5(A) Not Detected IU/mL [facility] Comment: Detected BK Virus DNA was detected below 21.5 IU/mL. Viral load in this range cannot be accurately quantifi BK Virus DNA, Real Time PCR <1.33(A) Not Detected Log IU/mL [facility] Comment: [facility] [address] [place] [address],[address] [place] [address] Laurita Deleon MD, PhD 07/20/2024 8:35 AM CDT 07/20/2024 8:37 AM CDT Narrative [facility] - 07/24/2024 2:46 PM CDT LB FASTING:YES FASTING: YES us Bruce Justice MD LAB MICROBIOLOGY - GENERAL ORDE RABLES Final Result Performing Organization Address City/[facility] Co de Phone Number [facility] [address] [place] [address], [address] [place] [phone] * CBC with auto differential (07/20/2024 8:35 AM CDT) [facility] WBC 7.2 3.8 - 10.8 Thousand/u L [facility] RBC, POC 3.93 3.80 - 5.10 Million/uL [facility] Hgb 12.4 11.7 - 15.5 g/dL [facility] Hct 38.8 35.0 - 45.0 % [facility] MCV 98.7 80.0 - 100.0 fL [facility] MCH 31.6 27.0 - 33.0 pg [facility] MCHC 32.0 32.0 - 36.0 g/dL [facility] Comment: For adults, a slight decrease in the calculated MCHC value (in the range of 30 to 32 g/dL) is most likely not clinically significant; however, it should be interpreted with caution in correlation with other red cell parameters and the patient's clinical condition. Rdw 13.6 11.0 - 15.0 % [facility] Platelets 196 140 - 400 Thousand/u L [facility] MPV 11.2 7.5 - 12.5 fL [facility] Neutrophils, abs 4,788 1,500 - 7,800 cells/uL [facility] Lymphocytes, abs 1,411 850 - 3,900 cells/uL [facility] Monocyte abs 698 200 - 950 cells/uL [facility] Eosinophils, abs 274 15 - 500 cells/uL [facility] Basophils, abs 29 0 - 200 cells/uL [facility] Neutrophils 66.5 % [facility] Lymphocyte pct 19.6 % [facility] Monocytes 9.7 % [facility] Eosinophils 3.8 % [facility] Basophils 0.4 % [facility] 07/20/2024 8:35 AM CDT 07/20/2024 8:37 AM CDT Narrative [facility] - 07/24/2024 2:46 PM CDT LB FASTING:YES FASTING: YES Bruce Justice MD LAB BLOOD ORDERABLES Final Resu Performing Organization Address [facility] de Phone Number [facility] [address] [place] [address] * (ABNORMAL) Protein / creatinine ratio, urine, random (07/20/2024 8:35 AM CDT) Creatinine, ur 8(L) 20 - 275 mg/dL [facility] Protein/creati nine ratio 346,375(H) 24 - 184 mg/g creat [facility] Protein/Creati nine Ratio 346.375(H) 0.024 - 0.184 mg/mg creat [facility] Protein, ur, quant 2,771(H) 5 - 24 mg/dL [facility] Comment: Results verified by repeat analysis on dilution. 07/20/2024 8:35 AM CDT 07/20/2024 8:37 AM CDT Narrative [facility] - 07/24/2024 2:46 PM CDT LB FASTING:YES FASTING: YES Bruce Justice MD LAB URINE ORDERABLES Final [facility] Performing Organization Address [facility] de Phone Number [facility] [address] [place] [address] * (ABNORMAL) Renal function panel (07/20/2024 8:35 AM CDT) Glucose 92 65 - 99 mg/dL [facility] Comment: Fasting reference interval BUN 21 7 - 25 mg/dL [facility] Creatinine 7.44(H) 0.50 - 1.05 mg/dL [facility] eGFR 6(L) > OR = 60 mL/min/1.7 3m2 [facility] BUN/creat ratio 3(L) 6 - 22 (calc) [facility] Sodium 138 135 - 146 mmol/L [facility] Potassium, pl 4.8 3.5 - 5.3 mmol/L [facility] Chloride 93(L) 98 - 110 mmol/L [facility] CO2 33(H) 20 - 32 mmol/L [facility] Calcium 9.4 8.6 - 10.4 mg/dL [facility] Phosphorus, sr 5.3(H) 2.1 - 4.3 mg/dL [facility] Albumin 3.8 3.6 - 5.1 g/dL [facility] 07/20/2024 8:35 AM CDT 07/20/2024 8:37 AM CDT Narrative [facility] - 07/24/2024 2:46 PM CDT LB FASTING:YES FASTING: YES Bruce Justice MD LAB BLOOD ORDERABLES Final Resu Performing Organization Address [facility] de Phone Number [facility] [address] [place] [address] * (ABNORMAL) Tacrolimus, Highly Sensitive, LC/MS/MS (06/15/2024 10:01 AM SENIOR SUPPORT ENGINEER) [facility] Tacrolimus, Highly Sensitive, LC/MS/MS <1.0(L) mcg/L [facility] Comment: Verified by repeat analysis. No definitive therapeutic or toxic ranges have been established. Optimal blood drug levels are influenced by type of transplant, patient response, time post- transplant, co-administration of other drugs, and drug formulation. The following trough range is a suggested guideline: 5.0-20.0 mcg/L. 06/15/2024 10:0 1 AM SENIOR SUPPORT ENGINEER 06/15/2024 10:02 AM SENIOR SUPPORT ENGINEER Narrative [facility] - 06/18/2024 10:27 AM SENIOR SUPPORT ENGINEER LB Bruce Justice MD LAB BLOOD ORDERABLES Final Resu lt Performing Organization Address [place]/[facility] de Phone Number [facility] [address] [place] [address] * Cytomegalovirus (CMV) DNA PCR, quantitative (06/15/2024 10:01 AM SENIOR SUPPORT ENGINEER) CMV DNA qn Not Detected Not Detected IU/mL [facility] CMV DNA log IU/mL Not Detected Not Detected Log IU/mL [facility] Comment: (Note) For additional information, please refer to http://education.CirclePublish/faq/CMVandEBVPCR (This link is being provided for informational/educational purposes only.) [facility] [address] [address],[address] [facility] [address] Laurita Deleon MD, PhD 06/15/2024 10:0 1 AM SENIOR SUPPORT ENGINEER 06/15/2024 10:02 AM SENIOR SUPPORT ENGINEER Narrative [facility] - 06/18/2024 10:27 AM SENIOR SUPPORT ENGINEER LB Bruce Justice MD LAB MICROBIOLOGY - [facility] Final Result Performing Organization Address City/[facility]/ZIP Co de Phone Number [facility] [address] [place] [address], [address] [phone] * COPY(IES) SENT TO: (06/15/2024 10:01 AM SENIOR SUPPORT ENGINEER) COPY(IES) SENT TO: [facility] Comment: [facility] - COPY TO [address] [address] 06/15/2024 10:0 1 AM SENIOR SUPPORT ENGINEER 06/15/2024 10:02 AM SENIOR SUPPORT ENGINEER Narrative [facility] - 06/18/2024 10:27 AM SENIOR SUPPORT ENGINEER LB Bruce Justice MD LAB BLOOD ORDERABLES Final Resu lt [facility] * (ABNORMAL) BK virus, DNA, quantitative (06/15/2024 10:01 AM SENIOR SUPPORT ENGINEER) Pathologist [facility] BK virus, PCR 41(A) Not Detected IU/mL [facility] BK Virus DNA, Real Time PCR 1.61(A) Not Detected Log IU/mL [facility] Comment: [facility] [address] [address],[address] [place] [address] Laurita Deleon MD, PhD 06/15/2024 10:0 1 AM SENIOR SUPPORT ENGINEER 06/15/2024 10:02 AM SENIOR SUPPORT ENGINEER Narrative [facility] - 06/18/2024 10:27 AM SENIOR SUPPORT ENGINEER LB Bruce Justice MD LAB MICROBIOLOGY - [facility] [employer]ANLE[employer] Final Result [facility] [address] [address], [address] [place] [address] * (ABNORMAL) CBC with auto differential (06/15/2024 10:01 AM SENIOR SUPPORT ENGINEER) Pathologist [facility] WBC 7.8 3.8 - 10.8 Thousand/u L [...] [facility] 06/15/2024 10:0 1 AM SENIOR SUPPORT ENGINEER 06/15/2024 10:02 AM SENIOR SUPPORT ENGINEER Narrative [facility] - 06/18/2024 10:27 AM SENIOR SUPPORT ENGINEER LB Bruce Justice MD LAB BLOOD ORDERABLES Final Resu lt [facility] [address] [place] [address] * (ABNORMAL) Protein / creatinine ratio, urine, random (06/15/2024 10:01 AM SENIOR SUPPORT ENGINEER) Creatinine, ur 21 20 - 275 mg/dL [facility] Protein/creati nine ratio 35,000(H) 24 - 184 mg/g creat [facility] Protein/Creati nine Ratio 35.000(H) 0.024 - 0.184 mg/mg creat [facility] Protein, ur, quant 735(H) 5 - 24 mg/dL [facility] Comment: Verified by repeat analysis. 06/15/2024 10:0 1 AM SENIOR SUPPORT ENGINEER 06/15/2024 10:02 AM SENIOR SUPPORT ENGINEER Narrative [facility] - 06/18/2024 10:27 AM SENIOR SUPPORT ENGINEER LB Bruce Justice MD LAB URINE ORDERABLES Final Resu lt [facility] [address] [place] [address] * (ABNORMAL) Renal function panel (06/15/2024 10:01 AM SENIOR SUPPORT ENGINEER) Glucose 90 65 - 99 mg/dL [facility] [...] [facility] 06/15/2024 10:0 1 AM SENIOR SUPPORT ENGINEER 06/15/2024 10:02 AM SENIOR SUPPORT ENGINEER Narrative [facility] - 06/18/2024 10:27 AM SENIOR SUPPORT ENGINEER LB us Bruce Justice MD LAB BLOOD ORDERABLES Final Resu lt [facility] [address] [place] [phone] * (ABNORMAL) Tacrolimus, Highly Sensitive, LC/MS/MS (05/11/2024 8:55 AM SENIOR SUPPORT ENGINEER) Pathologist [facility] [place] Tacrolimus, Highly Sensitive, LC/MS/MS 1.2(L) mcg/L [facility] Comment: No definitive therapeutic or toxic ranges have been established. Optimal blood drug levels are influenced by type of transplant, patient response, time post- transplant, co-administration of other drugs, and drug formulation. The following trough range is a suggested guideline: 5.0-20.0 mcg/L. 05/11/2024 8:55 AM SENIOR SUPPORT ENGINEER 05/11/2024 8:56 AM SENIOR SUPPORT ENGINEER Narrative [facility] - 05/15/2024 2:37 AM SENIOR SUPPORT ENGINEER LB FASTING:YES FASTING: YES Bruce Justice MD LAB BLOOD ORDERABLES Final Resu lt [facility] [address] [place] [address] * Cytomegalovirus (CMV) DNA PCR, quantitative (05/11/2024 8:55 AM SENIOR SUPPORT ENGINEER) CMV DNA qn Not Detected Not Detected IU/mL [facility] CMV DNA log IU/mL Not Detected Not Detected Log IU/mL [facility] Comment: (Note) For additional information, please refer to http://education.CirclePublish/faq/CMVandEBVPCR (This link is being provided for informational/educational purposes only.) [facility] [address] [address],[address] [facility] [id number] Laurita Deleon MD, PhD 05/11/2024 8:55 AM SENIOR SUPPORT ENGINEER 05/11/2024 8:56 AM SENIOR SUPPORT ENGINEER Narrative [facility] - 05/15/2024 2:37 AM SENIOR SUPPORT ENGINEER LB FASTING:YES FASTING: YES Bruce Justice MD LAB MICROBIOLOGY - GENERAL ORDE RABLES Final Result [facility] [address] [place] [address], [address] [place] [phone] * COPY(IES) SENT TO: (05/11/2024 8:55 AM SENIOR SUPPORT ENGINEER) COPY(IES) SENT TO: [facility] Comment: [facility] - COPY TO [facility] [address] [place] [address] 05/11/2024 8:55 AM SENIOR SUPPORT ENGINEER 05/11/2024 8:56 AM SENIOR SUPPORT ENGINEER Narrative [facility] - 05/15/2024 2:37 AM SENIOR SUPPORT ENGINEER LB FASTING:YES FASTING: YES us Bruce Justice MD LAB BLOOD ORDERABLES Final Resu lt [facility] * BK virus, DNA, quantitative (05/11/2024 8:55 AM SENIOR SUPPORT ENGINEER) Pathologist [facility] [place] BK virus, PCR Not Detected Not Detected IU/mL [facility] BK Virus DNA, Real Time PCR Not Detected Not Detected Log IU/mL [facility] Comment: [facility] [address],[address] [facility] [address] Laurita Deleon MD, PhD 05/11/2024 8:55 AM SENIOR SUPPORT ENGINEER 05/11/2024 8:56 AM SENIOR SUPPORT ENGINEER Narrative [facility] - 05/15/2024 2:37 AM SENIOR SUPPORT ENGINEER LB FASTING:YES FASTING: YES us Bruce Justice MD LAB MICROBIOLOGY - [facility] Final Result Performing Organization Address [place]/[facility] Co de Phone Number [facility] [address] [place] [address], [address] [place] [phone] * (ABNORMAL) CBC with auto differential (05/11/2024 8:55 AM SENIOR SUPPORT ENGINEER) [facility] WBC 7.0 3.8 - 10.8 Thousand/u L [...] % [facility] 05/11/2024 8:55 AM SENIOR SUPPORT ENGINEER 05/11/2024 8:56 AM SENIOR SUPPORT ENGINEER Narrative [facility] - 05/15/2024 2:37 AM SENIOR SUPPORT ENGINEER LB FASTING:YES FASTING: YES us Bruce Justice MD LAB BLOOD ORDERABLES Final Resu lt [facility] [address] [place] [address] * (ABNORMAL) Protein / creatinine ratio, urine, random (05/11/2024 8:55 AM SENIOR SUPPORT ENGINEER) Creatinine, ur 7(L) 20 - 275 mg/dL [facility] Protein/creati nine ratio 244,286(H) 24 - 184 mg/g creat [facility] Protein/Creati nine Ratio 244.286(H) 0.024 - 0.184 mg/mg creat [facility] Protein, ur, quant 1,710(H) 5 - 24 mg/dL [facility] Comment: Results verified by repeat analysis on dilution. 05/11/2024 8:55 AM SENIOR SUPPORT ENGINEER 05/11/2024 8:56 AM SENIOR SUPPORT ENGINEER Narrative [facility] - 05/15/2024 2:37 AM SENIOR SUPPORT ENGINEER LB FASTING:YES FASTING: YES us Bruce Justice MD LAB URINE ORDERABLES Final Resu lt Performing Organization Address [place]/[facility]/ZIP Co de Phone Number [facility] [address] [address] [phone] * (ABNORMAL) Renal function panel (05/11/2024 8:55 AM SENIOR SUPPORT ENGINEER) Pathologist [facility] [place] Glucose 87 65 - 99 mg/dL [facility] [...] - 5.1 g/dL [facility] 05/11/2024 8:5 5 AM SENIOR SUPPORT ENGINEER 05/11/2024 8:56 AM SENIOR SUPPORT ENGINEER Narrative [facility] - 05/15/2024 2:37 AM SENIOR SUPPORT ENGINEER LB FASTING:YES FASTING: YES Bruce Justice MD LAB BLOOD ORDERABLES Final Resu lt Performing Organization Address [place]/[facility]/ZIP Co de Phone Number [facility] [address] [address] [phone] * Hepatitis panel, acute Blood (12/03/2023 10:00 [...] revised on 2019. HepBsAg Nonreactive Nonreactive [facility] Blood 12/03/2023 10:0 0 AM CDT 12/03/2023 10:01 AM CDT us Anna Clarke MD LAB MICROBIOLOGY - GENERAL OR DERABLES Final Result [facility] [address] [address] Department [place] [address] from Last 3 Months or Most Recently Relevant to Health Maintenance
--- OUTSIDE RECORDS SUMMARY | 2024-08-03 08:43 | XMS_ITS | Clinical Summary ---
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 - discussed risks of obesity and association with chronic medical problems including HTN, DM, and NEREYDA - advised patient on importance of maintaining a diet and exercise regimen including cardiovascular and weight-bearing exercises - nutrition consultation Physical deconditioning 06/01/2021 Assessment & Plan (06/07/2021 2:29 PM MAINSPRING WINDER): Multifactorial but mostly driven by her neuropathy and malnutrition - PT/OT recommending SNF. Pt not amenable. - Home PT/OT with 24 hr supervision. States son can provide supervision. Assessment & Plan (06/06/2021 2:58 PM MAINSPRING WINDER): Multifactorial but mostly driven by her neuropathy -PT/OT recommending SNF. Pt not amenable. Assessment & Plan (06/05/2021 7:10 PM MAINSPRING WINDER): Multifactorial but mostly driven by her neuropathy -PT/OT recommending SNF, she is considering but may still elect to discharge home Assessment & Plan (06/04/2021 9:50 AM MAINSPRING WINDER): Multifactorial but mostly driven by her neuropathy -PT/OT recommending SNF, she is considering but may still elect to discharge home Assessment & Plan (06/03/2021 10:29 AM MAINSPRING WINDER): Multifactorial but mostly driven by her neuropathy -PT/OT recommending SNF, she is considering but may still elect to discharge home Assessment & Plan (06/02/2021 12:57 PM MAINSPRING WINDER): Multifactorial but mostly driven by her neuropathy -PT/OT recommending SNF, she is considering but may still elect to discharge home Assessment & Plan (06/01/2021 12:38 PM MAINSPRING WINDER): Multifactorial but mostly driven by her neuropathy -PT/OT recommending SNF, she is considering but may still elect to discharge home Pyelonephritis of transplanted kidney vs UTI 06/2021 Assessment & Plan (06/07/2021 2:25 PM MAINSPRING WINDER): Spiked temperature of 38.2 on 05/30 once [...] collection Assessment & Plan (06/06/2021 2:50 PM MAINSPRING WINDER): Spiked temperature of 38.2 on 05/30 once [...] ) Assessment & Plan (06/05/2021 7:14 PM MAINSPRING WINDER): Spiked temperature of 38.2 on 05/30 once [...] duration. Assessment & Plan (06/04/2021 9:51 AM MAINSPRING WINDER): Spiked temperature of 38.2 on 05/30 once [...] sample Assessment & Plan (06/03/2021 10:33 AM MAINSPRING WINDER): Spiked temperature of 38.2 on 05/30 once [...] cultures Assessment & Plan (06/02/2021 12:53 PM MAINSPRING WINDER): Spiked temperature of 38.2 on 05/30 once [...] resulting Assessment & Plan (06/01/2021 12:34 PM MAINSPRING WINDER): Spiked temperature of 38.2 on 05/30 once [...] cultures Assessment & Plan (05/31/2021 8:40 AM MAINSPRING WINDER): Spiked temperature overnight of 38.2 once scheduled [...] 05/28/2021 Assessment & Plan (06/06/2021 2:58 PM MAINSPRING WINDER): Poor appetite, encourage protein supplementations. Nutrition consult Assessment & Plan (06/05/2021 7:16 PM MAINSPRING WINDER): Poor appetite, encourage protein supplementations. Nutrition consult Assessment & Plan (06/04/2021 9:52 AM MAINSPRING WINDER): Poor appetite, encourage protein supplementations. Nutrition consult Assessment & Plan (06/03/2021 10:29 AM MAINSPRING WINDER): Poor appetite, encourage protein supplementations. Nutrition consult Assessment & Plan (06/02/2021 12:55 PM MAINSPRING WINDER): Poor appetite, encourage protein supplementations. Nutrition consult Assessment & Plan (06/01/2021 12:36 PM MAINSPRING WINDER): Poor appetite, encourage protein supplementations. Nutrition consult Assessment & Plan (05/31/2021 11:07 AM MAINSPRING WINDER): Poor appetite, encourage protein supplementations. Nutrition consult Assessment & Plan (05/30/2021 10:51 AM MAINSPRING WINDER): Poor appetite, encourage protein supplementations. Nutrition consult Assessment & Plan (05/29/2021 1:35 PM MAINSPRING WINDER): Poor appetite, encourage protein supplementations. Nutrition consult Leg pain, bilateral 05/26/2021 Assessment & Plan (06/07/2021 2:27 PM MAINSPRING WINDER): According to the patient, this began with [...] amenable. Assessment & Plan (06/06/2021 2:54 PM MAINSPRING WINDER): According to the patient, this began with [...] amenable. Assessment & Plan (06/05/2021 7:17 PM MAINSPRING WINDER): According to the patient, this began with [...] DVT Assessment & Plan (06/04/2021 9:49 AM MAINSPRING WINDER): According to the patient, this began with [...] DVT Assessment & Plan (06/03/2021 10:29 AM MAINSPRING WINDER): According to the patient, this began with [...] DVT Assessment & Plan (06/02/2021 1:01 PM MAINSPRING WINDER): According to the patient, this began with [...] DVT Assessment & Plan (06/01/2021 12:38 PM MAINSPRING WINDER): According to the patient, this began with [...] DVT Assessment & Plan (05/31/2021 11:07 AM MAINSPRING WINDER): According to the patient, this began with [...] DVT Assessment & Plan (05/30/2021 10:50 AM MAINSPRING WINDER): According to the patient, this began with [...] DVT Assessment & Plan (05/29/2021 1:33 PM MAINSPRING WINDER): According to the patient, this began with [...] DVT Assessment & Plan (05/28/2021 10:52 AM MAINSPRING WINDER): According to the patient, this began with [...] sciatica Assessment & Plan (05/27/2021 9:49 AM MAINSPRING WINDER): According to the patient, this began with swelling after her recent discharge from the hospital after Medications were changed (diuretics). Tramadol is effective for her. Will start with tramadol 25 mg TID prn. Monitor edema and sxs. Pt walks with walker, PT/OT evaluations Dopplers to r/o DVT s/p COVID Assessment & Plan (05/26/2021 5:26 PM MAINSPRING WINDER): According to the patient, this began with swelling after her recent discharge from the hospital after Medications were changed (diuretics). Tramadol is effective for her. Will start with tramadol 25 mg TID prn. Monitor edema and sxs. Pt walks with walker, PT/OT evaluations Pneumonia due to COVID-19 virus 05/10/2021 Assessment & Plan (05/15/2021 2:07 PM MAINSPRING WINDER): Symptom onset 05/02/21, positive test 05/09 at OSH (see care everywhere for confirmation) Cont O2, wean as able Cont decadron (d#1=05/10) Remdesivir continued w renal txp's blessing, s/p 5 days VTE ppx with SQ heparin Assessment & Plan (05/14/2021 3:22 PM MAINSPRING WINDER): Symptom onset 05/02/21, positive test 05/09 at OSH (see care everywhere for confirmation) Cont O2, wean as able Cont decadron (d#1=05/10) Remdesivir continued w renal txp's blessing, d#5 today VTE ppx with SQ heparin Assessment & Plan (05/13/2021 11:08 AM MAINSPRING WINDER): Symptom onset 05/02/21, positive test 05/09 at OSH (see care everywhere for confirmation) Cont O2, wean as able Cont decadron (d#1=05/10) Remdesivir continued w renal txp's blessing, d#4 today VTE ppx with SQ heparin Assessment & Plan (05/12/2021 12:01 PM MAINSPRING WINDER): Symptom onset 05/02/21, positive test 05/09 at OSH (see care everywhere for confirmation) Cont O2, wean as able Cont decadron (d#1=05/10) Remdesivir continued w renal txp's blessing, d#3 today VTE ppx with SQ heparin Assessment & Plan (05/11/2021 1:29 PM MAINSPRING WINDER): Onset of symptoms ~05/02/21 with worsening dyspnea, fatigue and progressive symptoms prompting presentation. Now on 5L supplemental oxygen. 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 RTO 12m. I will send the results to the portal. If she has not heard in a week, to call the office. Breast swelling 04/04/2021 Assessment & Plan (04/04/2021 3:20 PM MAINSPRING WINDER): She is s/p bx. I will look [...] 04/04/2021 Assessment & Plan (04/04/2021 3:20 PM MAINSPRING WINDER): The patient was encouraged to stop smoking. Techniques for smoking cessation were discussed to the patient's level of interest. Preoperative testing 11/09/2020 Hydrohepatosis 09/22/2020 Overview (09/22/2020): Added automatically from request for surgery [id number] Hypernatremia 08/05/2020 Assessment & Plan (08/05/2020 11:08 AM CDT): Due to Na bicarb drip ordered for correction of metabolic acidosis. - discontinue bicarb drip - will likely resolve, no need for further testing unless otherwise indicated Hydronephrosis, right 09/21/2019 Overview (09/21/2019): Added automatically from request for surgery [id number] Other proteinuria 05/05/2019 Obstruction of right ureter 02/19/2019 Overview (02/19/2019): Added automatically from request for surgery [id number] Obesity, Class II, BMI 35-39.9 01/29/2019 Assessment & Plan (05/27/2021 9:48 AM MAINSPRING WINDER): RD consult while here for diet education Pt has low appetite, not eating much Supplements ordered Assessment & Plan (05/26/2021 5:17 PM MAINSPRING WINDER): RD consult while here for diet education Hydronephrosis 12/11/2018 Overview (12/11/2018): Added automatically from request for surgery [id number] Uterine fibroid 12/02/2018 Assessment & Plan (12/05/2018 [...] 11/30/2018 Assessment & Plan (05/28/2021 10:50 AM MAINSPRING WINDER): Continue iron supplements Assessment & Plan (05/27/2021 9:47 AM MAINSPRING WINDER): Continue iron supplements Assessment & Plan (05/26/2021 5:18 PM MAINSPRING WINDER): Continue iron supplements Assessment & Plan (12/05/2018 [...] (11/27/2018): Added automatically from request for surgery [id number] Assessment & Plan (12/31/2023 9:55 AM CDT): [...] electives. Assessment & Plan (06/07/2021 2:28 PM MAINSPRING WINDER): History of ureteral obstruction from known fibroid and having ureteral exchanges every 3 months with urology (next scheduled on 06/06). - Urethral stent exchanged 06/05. - Follow up with urology outpatient Assessment & Plan (06/06/2021 2:53 PM MAINSPRING WINDER): History of ureteral obstruction from known fibroid and having ureteral exchanges every 3 months with urology (next scheduled on 06/06). - Urethral stent exchanged 06/05. Assessment & Plan (06/05/2021 7:15 PM MAINSPRING WINDER): History of ureteral obstruction from known fibroid and having ureteral exchanges every 3 months with urology (next scheduled on 06/06). - Urethral stent exchanged 06/05. Assessment & Plan (06/04/2021 9:47 AM MAINSPRING WINDER): History of ureteral obstruction from known fibroid and having ureteral exchanges every 3 months with urology (next scheduled on 06/06). -Discussed with urology here as her exchange is actually scheduled for [facility] on Fri and they are going to try and fit her on the OR schedule here -Will need to be NPO on Friday night Assessment & Plan (06/03/2021 10:28 AM MAINSPRING WINDER): History of ureteral obstruction from known fibroid and having ureteral exchanges every 3 months with urology (next scheduled on 06/06). Assessment & Plan (06/02/2021 12:53 PM MAINSPRING WINDER): History of ureteral obstruction from known fibroid and having ureteral exchanges every 3 months with urology (next scheduled on 06/06). Assessment & Plan (06/01/2021 12:35 PM MAINSPRING WINDER): History of ureteral obstruction from known fibroid and having ureteral exchanges every 3 months with urology (next scheduled on 06/06). Assessment & Plan (05/31/2021 11:06 AM MAINSPRING WINDER): History of ureteral obstruction from known fibroid and having ureteral exchanges every 3 months with urology (next scheduled on 06/06). Assessment & Plan (05/30/2021 10:48 AM MAINSPRING WINDER): History of ureteral obstruction from known fibroid and having ureteral exchanges every 3 months with urology (next scheduled on 06/06). Assessment & Plan (05/29/2021 1:31 PM MAINSPRING WINDER): History of ureteral obstruction from known fibroid and having ureteral exchanges every 3 months with urology (next scheduled on 06/06). Assessment & Plan (05/28/2021 10:50 AM MAINSPRING WINDER): ureteral obstruction from known fibroid and having ureteral exchanges every 3 months with urology (next scheduled on 06/06). Assessment & Plan (05/27/2021 9:47 AM MAINSPRING WINDER): ureteral obstruction from known fibroid and having ureteral exchanges every 3 months with urology (next scheduled on 06/06). Assessment & Plan (05/26/2021 5:16 PM MAINSPRING WINDER): ureteral obstruction from known fibroid and having [...] not think this is the case. - Arbitrator consulted for uterine fibroid - MRI Pelvis W/O contrast - Management of stent per urology. Assessment & Plan (11/29/2018 12:15 PM CDT): Renal U/S at OSH with hydronephrosis of transplanted kidney now s/p ureteral stent by urology 11/28. Found to have extrinsic compression of ureter from likely uterine fibroid. -Management of stent per urology. -Agree with non-emergent ob/gyn nurse consult for management of fibroids. Hyperlipidemia, unspecified 11/27/2018 Assessment & Plan (03/02/2023 12:01 PM MAINSPRING WINDER): Continue patient's home atorvastatin 10 mg daily Hypertension, essential 11/27/2018 Assessment & Plan (05/14/2021 3:24 PM MAINSPRING WINDER): Continue home amlodipine, labetalol Assessment & Plan (05/10/2021 1:21 AM MAINSPRING WINDER): Continue home amlodipine, labetalol Assessment & Plan [...] 11/27/2018 Assessment & Plan (06/07/2021 2:27 PM MAINSPRING WINDER): S/p renal transplant (2007, b/l Cr 2.7-3.4) [...] 06/21. Assessment & Plan (06/06/2021 2:52 PM MAINSPRING WINDER): S/p renal transplant (2007, b/l Cr 2.7-3.4) [...] qday Assessment & Plan (06/05/2021 7:09 PM MAINSPRING WINDER): S/p renal transplant (2007, b/l Cr 2.7-3.4) [...] monitoring Assessment & Plan (06/04/2021 9:52 AM MAINSPRING WINDER): S/p renal transplant (2007, b/l Cr 2.7-3.4) [...] monitoring Assessment & Plan (06/03/2021 10:29 AM MAINSPRING WINDER): S/p renal transplant (2007, b/l Cr 2.7-3.4) [...] monitoring Assessment & Plan (06/02/2021 12:55 PM MAINSPRING WINDER): S/p renal transplant (2007, b/l Cr 2.7-3.4) [...] monitoring Assessment & Plan (06/01/2021 12:37 PM MAINSPRING WINDER): S/p renal transplant (2007, b/l Cr 2.7-3.4) [...] monitoring Assessment & Plan (05/31/2021 8:40 AM MAINSPRING WINDER): S/p renal transplant (2007, b/l Cr 2.7-3.4) [...] monitoring. Assessment & Plan (05/30/2021 10:52 AM MAINSPRING WINDER): S/p renal transplant (2007, b/l Cr 2.7-3.4) [...] monitoring. Assessment & Plan (05/29/2021 1:36 PM MAINSPRING WINDER): S/p renal transplant (2007, b/l Cr 2.7-3.4) [...] monitoring. Assessment & Plan (05/28/2021 10:53 AM MAINSPRING WINDER): s/p renal transplant (2007, b/l Cr 2.7-3.4) [...] following/managing Assessment & Plan (05/27/2021 9:46 AM MAINSPRING WINDER): s/p renal transplant (2007, b/l Cr 2.7-3.4) [...] following/managing Assessment & Plan (05/26/2021 5:11 PM MAINSPRING WINDER): s/p renal transplant (2007, b/l Cr 2.7-3.4) [...] following/managing Assessment & Plan (05/15/2021 2:07 PM MAINSPRING WINDER): ESRD 2/2 hypertensive nephrosclerosis s/p renal transplant (2007, b/l Cr 2.7- 3.4) Tacrolimus trough above goal, decreased dose 5mg bid Renal transplant service comanaging (nb home dose 9am/8pm) Home prednisone 5mg daily held while on dexamethasone Has been off myfortic (h/o bk/cmv viremia) Assessment & Plan (05/14/2021 3:22 PM MAINSPRING WINDER): ESRD 2/2 hypertensive nephrosclerosis s/p renal transplant (2007, b/l Cr 2.7- 3.4) Tacrolimus trough above goal, decreased dose 5mg bid Renal transplant service comanaging (nb home dose 9am/8pm) Home prednisone 5mg daily held while on dexamethasone Has been off myfortic (h/o bk/cmv viremia) Assessment & Plan (05/13/2021 11:09 AM MAINSPRING WINDER): ESRD 2/2 hypertensive nephrosclerosis s/p renal transplant (2007, b/l Cr 2.7- 3.4) Tacrolimus trough above goal, decreased dose 5mg bid Renal transplant service comanaging (nb home dose 9am/8pm) Home prednisone 5mg daily held while on dexamethasone Assessment & Plan (05/12/2021 12:01 PM MAINSPRING WINDER): ESRD 2/2 hypertensive nephrosclerosis s/p renal transplant [...] following Assessment & Plan (05/11/2021 1:16 PM MAINSPRING WINDER): ESRD 2/2 hypertensive nephrosclerosis s/p renal transplant [...] (12/05/2018 2:28 PM CDT): Renal transplant at [facility], followed now reportedly by Dr. Rome [...] with information in Care Everywhere from her stamper blocker. She has not seen Dr. Ram yet. She has had 3 no shows. 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 Tac goal 4-7 per notes - BMP and tac trough on Friday per Transplant nephrology, [facility] and have faxed to PCP, script provided - Discharge today. I have paged her primary stamper blocker office. I have faxed the d/c summary to her PCP as well. Assessment & Plan (12/04/2018 10:32 AM CDT): Renal transplant at [facility], followed now reportedly by Dr. Rome [...] with information in Care Everywhere from her stamper blocker. She has not seen Dr. Ram yet. She has had 3 no shows. 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 Tac goal 4-7 per notes - Further mgmt of MARIBELL per nephrology. Assessment & Plan (12/03/2018 10:35 AM CDT): Renal transplant at [facility], followed now reportedly by Dr. Rome Ram although his clinic stated she has not been seen there and has no showed the last 3 clinic appts. - Patient has a second chart - Ronan Moreira with information in Care Everywhere from her stamper blocker. She has not seen Dr. Ram yet. [...] (12/02/2018 12:03 PM CDT): Renal transplant at [facility], followed now reportedly by Dr. Rome [...] (12/01/2018 5:23 PM CDT): Renal transplant at [facility], followed now by Dr. Rome Ram. Reported baseline cr 1.3 - Transplant nephrology following, mgmt of immunosuppression per their team - Tac level in AM (low today) - Attempting to obtain records from Dr. Ram Assessment & Plan (11/30/2018 5:38 PM CDT): Renal transplant at [facility], followed now by Dr. Rome Ram. Reported baseline cr 1.3 - Transplant nephrology following, mgmt of immunosuppression per their team Acute on chronic diastolic (congestive) heart fa ilure 11/27/2018 Assessment & Plan (06/07/2021 2:28 PM MAINSPRING WINDER): TTE (02/2021) with EF 70%, nl RV/LV size and systolic function and moderate pericardia effusion without collapse (managed conservatively with diuresis). -Repeat TTE with EF 70%, impaired relaxation and stable moderate pericardial effusion -Continue BP control and no signs of volume overload currently Assessment & Plan (06/06/2021 2:57 PM MAINSPRING WINDER): TTE (02/2021) with EF 70%, nl RV/LV size and systolic function and moderate pericardia effusion without collapse (managed conservatively with diuresis). -Repeat TTE with EF 70%, impaired relaxation and stable moderate pericardial effusion -Continue BP control and no signs of volume overload currently Assessment & Plan (06/05/2021 7:15 PM MAINSPRING WINDER): TTE (02/2021) with EF 70%, nl RV/LV size and systolic function and moderate pericardia effusion without collapse (managed conservatively with diuresis). -Repeat TTE with EF 70%, impaired relaxation and stable moderate pericardial effusion -Continue BP control and no signs of volume overload currently Assessment & Plan (06/04/2021 9:42 AM MAINSPRING WINDER): TTE (02/2021) with EF 70%, nl RV/LV size and systolic function and moderate pericardia effusion without collapse (managed conservatively with diuresis). -Repeat TTE with EF 70%, impaired relaxation and stable moderate pericardial effusion -Continue BP control and no signs of volume overload currently Assessment & Plan (06/03/2021 10:27 AM MAINSPRING WINDER): TTE (02/2021) with EF 70%, nl RV/LV size and systolic function and moderate pericardia effusion without collapse (managed conservatively with diuresis). -Repeat TTE with EF 70%, impaired relaxation and stable moderate pericardial effusion -Continue BP control and no signs of volume overload currently Assessment & Plan (06/02/2021 12:50 PM MAINSPRING WINDER): TTE (02/2021) with EF 70%, nl RV/LV size and systolic function and moderate pericardia effusion without collapse (managed conservatively with diuresis). -Repeat TTE with EF 70%, impaired relaxation and stable moderate pericardial effusion -Continue BP control and no signs of volume overload currently Assessment & Plan (06/01/2021 12:32 PM MAINSPRING WINDER): TTE (02/2021) with EF 70%, nl RV/LV size and systolic function and moderate pericardia effusion without collapse (managed conservatively with diuresis). -Repeat TTE with EF 70%, impaired relaxation and stable moderate pericardial effusion -Continue BP control and no signs of volume overload currently Assessment & Plan (05/31/2021 11:04 AM MAINSPRING WINDER): TTE (02/2021) with EF 70%, nl RV/LV size and systolic function and moderate pericardia effusion without collapse (managed conservatively with diuresis). -Repeat TTE with EF 70%, impaired relaxation and stable moderate pericardial effusion -Continue BP control and no signs of volume overload currently Assessment & Plan (05/30/2021 10:47 AM MAINSPRING WINDER): TTE (02/2021) with EF 70%, nl RV/LV size and systolic function and moderate pericardia effusion without collapse (managed conservatively with diuresis). -Repeat TTE with EF 70%, impaired relaxation and stable moderate pericardial effusion -Continue BP control and no signs of volume overload currently Assessment & Plan (05/29/2021 1:31 PM MAINSPRING WINDER): TTE (02/2021) with EF 70%, nl RV/LV size and systolic function and moderate pericardia effusion without collapse (managed conservatively with diuresis). -Repeat TTE with EF 70%, impaired relaxation and stable moderate pericardial effusion -Continue BP control and no signs of volume overload currently Assessment & Plan (05/28/2021 10:49 AM MAINSPRING WINDER): TTE (02/2021) with EF 70%, nl RV/LV size and systolic function and moderate pericardia effusion without collapse (managed conservatively with diuresis). Repeat TTE ordered Assessment & Plan (05/27/2021 9:46 AM MAINSPRING WINDER): TTE (02/2021) with EF 70%, nl RV/LV size and systolic function and moderate pericardia effusion without collapse (managed conservatively with diuresis). Repeat TTE ordered Assessment & Plan (05/26/2021 5:20 PM MAINSPRING WINDER): TTE (02/2021) with EF 70%, nl RV/LV [...] not think TTE or HILLARY would change attendant at this time but patient would likely [...] not think TTE or HILLARY would change attendant at this time but patient would likely [...] not think TTE or HILLARY would change attendant at this time but patient would likely benefit from cardiology input as outpatient. NEREYDA on CPAP 11/27/2018 Assessment & Plan (12/30/2023 11:11 PM CDT): Cont CPAP Assessment & Plan (06/07/2021 2:28 PM MAINSPRING WINDER): Pt uses home nightly CPAP Assessment & Plan (06/06/2021 2:58 PM MAINSPRING WINDER): Pt uses home nightly CPAP Assessment & Plan (06/05/2021 7:15 PM MAINSPRING WINDER): Pt uses home nightly CPAP Assessment & Plan (06/04/2021 9:49 AM MAINSPRING WINDER): Pt uses home nightly CPAP Assessment & Plan (06/03/2021 10:29 AM MAINSPRING WINDER): Pt uses home nightly CPAP Assessment & Plan (06/02/2021 12:54 PM MAINSPRING WINDER): Pt uses home nightly CPAP Assessment & Plan (06/01/2021 12:36 PM MAINSPRING WINDER): Pt uses home nightly CPAP Assessment & Plan (05/31/2021 11:07 AM MAINSPRING WINDER): Pt uses home nightly CPAP Assessment & Plan (05/30/2021 10:50 AM MAINSPRING WINDER): Pt uses home nightly CPAP Assessment & Plan (05/29/2021 1:34 PM MAINSPRING WINDER): Pt uses home nightly CPAP Assessment & Plan (05/28/2021 10:50 AM MAINSPRING WINDER): Pt uses home CPAP Assessment & Plan (05/27/2021 9:47 AM MAINSPRING WINDER): Pt uses home CPAP Assessment & Plan (05/26/2021 5:15 PM MAINSPRING WINDER): Pt uses home CPAP Assessment & Plan [...] HD Assessment & Plan (03/02/2023 11:59 AM MAINSPRING WINDER): No signs of exacerbation. Last TTE done [...] ETOH. Assessment & Plan (05/15/2021 2:07 PM MAINSPRING WINDER): Recent admission for pericardial effusion and volume overload. TTE with large pericardial effusion was seen by cardiology and thoracic surgery with plan for conservative management and diuresis Have not directly reimaged pericardial effusion thus far during admission Currently HDS, continue anti-hypertensives Holding Lasix as above Assessment & Plan (05/14/2021 3:23 PM MAINSPRING WINDER): Recent admission for pericardial effusion and volume overload. TTE with large pericardial effusion was seen by cardiology and thoracic surgery with plan for conservative management and diuresis Have not directly reimaged pericardial effusion thus far during admission Currently HDS, continue anti-hypertensives Holding Lasix as above Assessment & Plan (05/13/2021 11:09 AM MAINSPRING WINDER): Recent admission for pericardial effusion and volume overload. TTE with large pericardial effusion was seen by cardiology and thoracic surgery with plan for conservative management and diuresis -currently HDS, continue anti-hypertensives -holding diuretics as elsewhere Assessment & Plan (05/12/2021 12:01 PM MAINSPRING WINDER): Recent admission for pericardial effusion and volume overload. TTE with large pericardial effusion was seen by cardiology and thoracic surgery with plan for conservative management and diuresis -currently HDS, continue anti-hypertensives -holding diuretics as elsewhere Assessment & Plan (05/11/2021 1:14 PM MAINSPRING WINDER): Recent admission for pericardial effusion and volume [...] PM CDT): Patient's s/p DDKT at the [facility] in 2007. Of note patient has also been followed at [place], but most recently continues to follow her care at [facility] since 2016. -Cr somewhat improved with thomas catheter placement. Urology c/s; per their recommendations, d/c and attempt void trial. -Patient diuresed with 40 Lasix d/t volume overload, SOB; UOP 3.6L -BK pending, CMV and HLA negative -Thought to be d/t new diagnosis of heart failure Assessment & Plan (10/26/2018 6:35 PM CDT): Patient's s/p DDKT at the [facility] in 2007. Of note patient has also been followed at [place], but most recently continues to follow her care at [facility] since 2016. -Patient recently admitted in 08/2018 d/t MARIBELL, baseline Cr was 1.2-1.4 until 06/2018 where it has been found to be 2.2-2.8. She was evaluated by urology who recommended IR c/s; and the patient left the hospital AMA -She re-presents to [facility] 10/25 with MARIBELL, BLE edema, and SOB. [...] 10/25/2018 Assessment & Plan (03/02/2023 11:59 AM MAINSPRING WINDER): Likely secondary to ESRD. Continue as planned under the ESRD - continue IV iron supplements q 2 weeks. - EPO 89579 units IV t.i.d. Friday on days not getting hemodialysis - CBC daily Assessment & Plan (06/07/2021 2:27 PM MAINSPRING WINDER): Hgb on admission related to anemia of [...] bleed Assessment & Plan (06/05/2021 7:09 PM MAINSPRING WINDER): Hgb on admission related to anemia of [...] bleed Assessment & Plan (06/04/2021 9:42 AM MAINSPRING WINDER): Hgb on admission related to anemia of [...] bleed Assessment & Plan (06/03/2021 10:27 AM MAINSPRING WINDER): Hgb on admission related to anemia of [...] bleed Assessment & Plan (06/02/2021 12:50 PM MAINSPRING WINDER): Hgb on admission related to anemia of [...] bleed Assessment & Plan (06/01/2021 12:32 PM MAINSPRING WINDER): Hgb on admission related to anemia of [...] bleed Assessment & Plan (05/31/2021 11:04 AM MAINSPRING WINDER): Hgb on admission related to anemia of [...] AM Assessment & Plan (05/30/2021 10:45 AM MAINSPRING WINDER): Hgb on admission related to anemia of CKD as well as component of HERNANDEZ. Baseline Hgb ~8 - Hgb matteo of 6.3 and s/p 1 unit PRBCs with improvement to ~7 since - Continue iron supplements - No signs/symptoms of bleeding, continue to monitor & transfuse Hgb <7 - Repeat iron panel/ferritin with AM labs Assessment & Plan (05/29/2021 1:29 PM MAINSPRING WINDER): Hgb on admission related to anemia of CKD as well as component of HERNANDEZ. Baseline Hgb ~8 - Hgb matteo of 6.3 and s/p 1 unit PRBCs with improvement to ~7 since - Continue iron supplements - No signs/symptoms of bleeding, continue to monitor & transfuse Hgb <7 Assessment & Plan (05/28/2021 10:50 AM MAINSPRING WINDER): S/p 1 unit pRBCs 05/26 Recent Labs Lab Units 05/28/21 0519 05/27/21 0433 05/26/21 1308 HEMOGLOBIN g/dL 7.7* 7.7* 7.7* Transfuse prn to keep Hgb>7 Anemia of chronic disease Hgb on admission related to anemia of CKD as well as component of HERNANDEZ. -continue iron supplements Assessment & Plan (05/27/2021 9:47 AM MAINSPRING WINDER): S/p 1 unit pRBCs 05/26 Recent Labs Lab Units 05/27/21 0433 05/26/21 1308 05/26/21 0415 HEMOGLOBIN g/dL 7.7* 7.7* 6.3* Transfuse prn to keep Hgb>7 Anemia of chronic disease Hgb on admission related to anemia of CKD as well as component of HERNANDEZ. -continue iron supplements Assessment & Plan (05/26/2021 5:15 PM MAINSPRING WINDER): S/p 1 unit pRBCs 05/26 Recent Labs Lab Units 05/26/21 1308 05/26/21 0415 HEMOGLOBIN g/dL 7.7* 6.3* Transfuse prn to keep Hgb>7 Anemia of chronic disease Hgb on admission related to anemia of CKD as well as component of HERNANDEZ. -continue iron supplements Assessment & Plan (05/14/2021 3:24 PM MAINSPRING WINDER): Hgb 9.2. Baseline ~8-9 related to anemia of CKD as well as component of HERNANDEZ. -continue iron supplements Assessment & Plan (05/10/2021 1:19 AM MAINSPRING WINDER): Hgb 9.2. 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 Plan - Consult [...] 11:39 AM CDT): -s/p DDKT 2007 at [facility] -Immunosuppression: cont tacrolimus 7mg QAM/6mg QPM, prednisone 5. She states she has not been on CellCept or Myfortic since 2007 or 2008. - Renal transplant in agreement with d/c today - Tac trough adequate Assessment & Plan (10/27/2018 4:48 PM CDT): -s/p DDKT 2007 at [facility] -Immunosuppression: cont tacrolimus 7mg QAM/6mg QPM, prednisone 5. She states she has not been on CellCept or Myfortic since 2007 or 2008. - Check tac trough - Followed by renal transplant service Assessment & Plan (10/26/2018 2:45 PM CDT): -s/p DDKT 2007 at [facility] -Immunosuppression: cont tacrolimus 7mg QAM/6mg QPM, prednisone 5. She states she has not been on CellCept or Myfortic since 2007 or 2008. - Check tac trough - Followed by renal transplant service Assessment & Plan (10/25/2018 3:31 AM CDT): -s/p DDKT 2007 at [facility] -Immunosuppression: cont tacrolimus 7mg QAM/6mg QPM, [...] Resolved Date ESRD (end stage renal disease) 03/01/2023 04/21/2023 Assessment & Plan (03/02/2023 11:58 AM MAINSPRING WINDER): Pt was not able to get HD 03/01/23 due to verbal altercation at HD center. She presented to [facility] for urgent HD which she tolerated. SW on consult to help find additional facility. Per EMR Hx of Kidney transplant for ESRD in the setting of HTN 2009 preformed at [facility]. Her transplant unfortunately failed due to [...] being evaluated for additional kidney transplant at [facility]. Left radiocephalic AV fistula, per vascular [...] - Follow up with transplant team at [facility] on discharge for continued workup for kidney transplant. Constipation 05/31/2021 03/03/2023 Assessment & Plan (03/02/2023 12:00 PM MAINSPRING WINDER): Patient reports chronic constipation and has not have a bowel movement since Friday. Abdominal x-ray showed mild to moderate amount of stool in colon and no obstructive bowel pattern noted. Patient has allergy to MiraLax and Dulcolax base which cause muscle pain. - s/p x2 lactulose will continue as needed to help with BM. - Dulcolax daily Assessment & Plan (06/01/2021 12:32 PM MAINSPRING WINDER): Now resolved, will discontinue lactulose and continue PRN meds Assessment & Plan (05/31/2021 11:05 AM MAINSPRING WINDER): Reports no bowel movement since 05/27 -Will start lactulose BID today (miralax allergy) and continue scheduled docusate-senna -If no BM by this evening then can use PRN suppository that's ordered History of COVID-19 05/29/2021 06/05/19 Assessment & Plan (06/04/2021 9:42 AM MAINSPRING WINDER): Positive on 05/10/21 during prior admission and briefly required O2 at that time, but was weaned off prior to discharge. S/p remdesivir and dexamethasone during that admit. Stable on room air this admission and now COVID recovered Assessment & Plan (06/03/2021 10:28 AM MAINSPRING WINDER): Positive on 05/10/21 during prior admission and briefly required O2 at that time, but was weaned off prior to discharge. S/p remdesivir and dexamethasone during that admit. Stable on room air this admission and now COVID recovered Assessment & Plan (06/02/2021 1:01 PM MAINSPRING WINDER): Positive on 05/10/21 during prior admission and briefly required O2 at that time, but was weaned off prior to discharge. S/p remdesivir and dexamethasone during that admit -Stable on room air this admission and now COVID recovered Assessment & Plan (06/01/2021 12:35 PM MAINSPRING WINDER): -Positive on 05/10/21 during prior admission and [...] today Assessment & Plan (05/31/2021 11:06 AM MAINSPRING WINDER): -Positive on 05/10/21 during prior admission and [...] now Assessment & Plan (05/30/2021 10:48 AM MAINSPRING WINDER): -Positive on 05/10/21 during prior admission and [...] 3 Assessment & Plan (05/31/2021 11:02 AM MAINSPRING WINDER): Now resolved, secondary to MARIBELL on CKD, K of 7.9 w/ EKG changes on admit - S/p iHD overnight 05/25- and has been off DIGESTER CAPPER since 05/26 and making good urine - K continues to remain normal - Lokelma has been discontinued Assessment & Plan (05/30/2021 10:43 AM MAINSPRING WINDER): Now resolved, secondary to MARIBELL on CKD, K of 7.9 w/ EKG changes on admit - S/p iHD overnight and has been off DIGESTER CAPPER since 05/26 and making good urine - K continues to remain normal - Lokelma was discontinued Assessment & Plan (05/29/2021 1:22 PM MAINSPRING WINDER): Secondary to MARIBELL on CKD, K of 7.9 w/ EKG changes in am at OSH. S/p temporization prior to transfer - S/p iHD overnight and has been off DIGESTER CAPPER since 05/26 and making good urine - K normal at 4.6, Lokelma has been held - Will monitor closely for iHD needs. Assessment & Plan (05/28/2021 10:51 AM MAINSPRING WINDER): - Noted 7.9 w/ EKG changes in am at OSH. - S/p medical temporization with 6.9 upon d/c from OSH to [facility]. - K now down to 5.8 s/p temporization but overnight went upto 6.8. - S/p iHD overnight 05/25- - Will monitor closely for iHD needs. - Monitor closely. Assessment & Plan (05/27/2021 9:49 AM MAINSPRING WINDER): - Noted 7.9 w/ EKG changes in am at OSH. - S/p medical temporization with 6.9 upon d/c from OSH to H. - K now down to 5.8 s/p temporization but overnight went upto 6.8. - S/p iHD overnight 05/25- - Will monitor closely for iHD needs. - Monitor closely. Assessment & Plan (05/26/2021 5:07 PM MAINSPRING WINDER): - Noted 7.9 w/ EKG changes in am at OSH. - S/p medical temporization with 6.9 upon d/c from OSH to H. - K now down to 5.8 s/p temporization but overnight went upto 6.8. - S/p iHD overnight. - Will monitor closely for iHD needs. - Monitor closely. Renal lesion 05/12/2021 06/03/2021 Assessment & Plan (06/02/2021 12:57 PM MAINSPRING WINDER): Admission UA was negative for infection and [...] drainage/sampling Assessment & Plan (05/30/2021 10:51 AM MAINSPRING WINDER): Per sign-out, patient does not have complicated [...] UA Assessment & Plan (05/29/2021 1:34 PM MAINSPRING WINDER): Per sign-out, patient does not have complicated UTI symptoms or evidence of infection on UA. However, Renal Transplant with duplex 05/25 showed no NENITA but new mild hydro and focal heterogenous echogenic area concerning for developing abscess. Pt had no sxs of dysuria; renal tx team has low suspicion for UTI Urine is clear/light 05/27 Assessment & Plan (05/28/2021 10:49 AM MAINSPRING WINDER): Per sign-out, patient does not have complicated UTI symptoms or evidence of infection on UA. However, Renal Transplant with duplex 05/25 showed no NENITA but new mild hydro and focal heterogenous echogenic area concerning for developing abscess. Pt had no sxs of dysuria; renal tx team has low suspicion for UTI Urine is clear/light 05/27 Assessment & Plan (05/27/2021 9:47 AM MAINSPRING WINDER): Per sign-out, patient does not have complicated UTI symptoms or evidence of infection on UA. However, Renal Transplant with duplex 05/25 showed no NENITA but new mild hydro and focal heterogenous echogenic area concerning for developing abscess. Pt had no sxs of dysuria; renal tx team has low suspicion for UTI Urine is clear/light 05/27 Assessment & Plan (05/26/2021 5:23 PM MAINSPRING WINDER): Per sign-out, patient does not have complicated UTI symptoms or evidence of infection on UA. However, Renal Transplant with duplex 05/25 showed no NENITA but new mild hydro and focal heterogenous echogenic area concerning for developing abscess. No Urine culture found this admission. Will order. Assessment & Plan (05/14/2021 3:22 PM MAINSPRING WINDER): Pyuria at osh, no culture data available S/p empiric rx with ceftriaxone out of abundance of caution, finished Assessment & Plan (05/13/2021 11:09 AM MAINSPRING WINDER): Pyuria at osh, no culture data available On empiric rx with ceftriaxone Culture here no growth but has been on abx Plan to finish course of therapy, abx d#4 today Assessment & Plan (05/12/2021 12:04 PM MAINSPRING WINDER): Pyuria at osh, no culture data available On empiric rx with ceftriaxone Culture here no growth but has been on abx Plan to finish course of therapy, abx d#3 today Pericardial effusion 02/28/2021 022 Assessment & Plan (06/04/2021 9:50 AM MAINSPRING WINDER): TTE (02/2021) with EF 70%, nl RV/LV [...] compromise Assessment & Plan (06/01/2021 12:36 PM MAINSPRING WINDER): TTE (02/2021) with EF 70%, nl RV/LV [...] compromise Assessment & Plan (05/31/2021 11:07 AM MAINSPRING WINDER): TTE (02/2021) with EF 70%, nl RV/LV [...] compromise Assessment & Plan (05/30/2021 10:51 AM MAINSPRING WINDER): TTE (02/2021) with EF 70%, nl RV/LV [...] compromise Assessment & Plan (05/29/2021 1:37 PM MAINSPRING WINDER): TTE (02/2021) with EF 70%, nl RV/LV [...] compromise Assessment & Plan (05/28/2021 10:49 AM MAINSPRING WINDER): TTE (02/2021) with EF 70%, nl RV/LV [...] ordered Assessment & Plan (05/27/2021 9:48 AM MAINSPRING WINDER): TTE (02/2021) with EF 70%, nl RV/LV [...] ordered Assessment & Plan (05/26/2021 5:19 PM MAINSPRING WINDER): TTE (02/2021) with EF 70%, nl RV/LV [...] each problem. ESRD (end stage renal disease) 11/27/2018 04/21/2023 Acute exacerbation of CHF (c ongestive heart failure) 11/27/2018 12/02/2018 Assessment & Plan (11/28/2018 1:14 [...] injury superimp osed on chronic kidney disease ([facility]/HCC) 10/25/2018 06/07/2021 Assessment & Plan (06/07/2021 2:26 PM MAINSPRING WINDER): History of ESRD 2/2 hypertensive nephrosclerosis s/p [...] downtrend Assessment & Plan (06/06/2021 2:51 PM MAINSPRING WINDER): History of ESRD 2/2 hypertensive nephrosclerosis s/p [...] baseline Assessment & Plan (06/05/2021 7:08 PM MAINSPRING WINDER): History of ESRD 2/2 hypertensive nephrosclerosis s/p [...] baseline Assessment & Plan (06/04/2021 9:42 AM MAINSPRING WINDER): History of ESRD 2/2 hypertensive nephrosclerosis s/p [...] baseline Assessment & Plan (06/03/2021 10:26 AM MAINSPRING WINDER): History of ESRD 2/2 hypertensive nephrosclerosis s/p [...] baseline Assessment & Plan (06/02/2021 1:00 PM MAINSPRING WINDER): History of ESRD 2/2 hypertensive nephrosclerosis s/p [...] now Assessment & Plan (06/01/2021 12:30 PM MAINSPRING WINDER): History of ESRD 2/2 hypertensive nephrosclerosis s/p [...] today Assessment & Plan (05/31/2021 11:03 AM MAINSPRING WINDER): History of ESRD 2/2 hypertensive nephrosclerosis s/p [...] BMP Assessment & Plan (05/30/2021 10:44 AM MAINSPRING WINDER): History of ESRD 2/2 hypertensive nephrosclerosis s/p [...] yesterday Assessment & Plan (05/29/2021 1:27 PM MAINSPRING WINDER): History of ESRD 2/2 hypertensive nephrosclerosis s/p [...] yesterday Assessment & Plan (05/28/2021 10:48 AM MAINSPRING WINDER): 65F with history of ESRD 2/2 hypertensive nephrosclerosis s/p renal transplant (2007, b/l Cr 2.7-3.4), anemia of CKD, NEREYDA on CPAP, HFpEF transferred from OSH to [facility] for acute kidney failure and hyperkalemia. s/p [...] 2.62* Assessment & Plan (05/27/2021 9:45 AM MAINSPRING WINDER): 65F with history of ESRD 2/2 hypertensive nephrosclerosis s/p renal transplant (2007, b/l Cr 2.7-3.4), anemia of CKD, NEREYDA on CPAP, HFpEF transferred from OSH to [facility] for acute kidney failure and hyperkalemia. s/p [...] pending. Assessment & Plan (05/26/2021 5:06 PM MAINSPRING WINDER): 65F with history of ESRD 2/2 hypertensive nephrosclerosis s/p renal transplant (2007, b/l Cr 2.7-3.4), anemia of CKD, NEREYDA on CPAP, HFpEF transferred from OSH to [facility] for acute kidney failure and hyperkalemia. s/p [...] pending. Assessment & Plan (05/15/2021 2:07 PM MAINSPRING WINDER): Admit creatinine 6.1, baseline 2.7-3.4 in recent [...] dosing Assessment & Plan (05/14/2021 3:21 PM MAINSPRING WINDER): Admit creatinine 6.1, baseline 2.7-3.4 in recent [...] dosing Assessment & Plan (05/13/2021 11:07 AM MAINSPRING WINDER): Admit creatinine 6.1, baseline 2.7-3.4 in recent [...] tacro Assessment & Plan (05/12/2021 11:57 AM MAINSPRING WINDER): Admit creatinine 6.1, baseline 2.7-3.4 in recent months Noted 6-7 days poor intake prior to arrival Some improvement thus far w fluids Still poor intake CMV neg Metabolic acidosis worsening in spite of oral bicarb Plan small fluids/bicarb infusion today, cont oral bicarb Monitor response w repeat BMP in AM Assessment & Plan (05/11/2021 1:29 PM MAINSPRING WINDER): Baseline Cr 2.7-3.4. On admission at OSH [...] to 2.8 since June 2018. Ultrasound at [facility] on 08/26 showed severe hydronephrosis of the [...] 04/21/2023 Assessment & Plan (03/02/2023 11:58 AM MAINSPRING WINDER): Blood pressure is controlled - continue amlodipine 10 mg daily, labetalol 200 mg t.i.d., Lasix 40 mg b.i.d.. Assessment & Plan (06/07/2021 2:27 PM MAINSPRING WINDER): - Continue home amlodipine & labetalol Assessment & Plan (06/06/2021 2:53 PM MAINSPRING WINDER): - Continue home amlodipine & labetalol Assessment & Plan (06/05/2021 7:09 PM MAINSPRING WINDER): - Continue home amlodipine & labetalol Assessment & Plan (06/04/2021 9:48 AM MAINSPRING WINDER): Restarted home Amlodipine & Labetalol, blood pressure within goal Assessment & Plan (06/03/2021 10:28 AM MAINSPRING WINDER): Restarted home Amlodipine & Labetalol, blood pressure within goal Assessment & Plan (06/02/2021 12:53 PM MAINSPRING WINDER): Improving BP -Restarted home Amlodipine & Labetalol Assessment & Plan (06/01/2021 12:35 PM MAINSPRING WINDER): Improving BP -Restarted home Amlodipine & Labetalol Assessment & Plan (05/31/2021 11:06 AM MAINSPRING WINDER): Improving BP -Restarted home Amlodipine yesterday and will resume home Labetalol today Assessment & Plan (05/30/2021 10:49 AM MAINSPRING WINDER): Currently BP at goal and has improved -Will restart home Amlodipine 10 mg qday today and continue to hold Labetolol for now Assessment & Plan (05/29/2021 1:32 PM MAINSPRING WINDER): Currently BP at goal -Labetolol and amlodipine both on hold due to softer pressures on admit, resume as tolerated Assessment & Plan (05/28/2021 10:50 AM MAINSPRING WINDER): Currently, BP near goal Labetolol and amlodipine both on hold monitor and titrate meds. BP at goal 05/27, 05/28 Assessment & Plan (05/27/2021 9:47 AM MAINSPRING WINDER): Currently, BP near goal Labetolol and amlodipine both on hold monitor and titrate meds. BP at goal 05/27 Assessment & Plan (05/26/2021 5:13 PM MAINSPRING WINDER): Currently, BP near goal Labetolol and amlodipine [...] 04/21/2023 Assessment & Plan (03/02/2023 12:00 PM MAINSPRING WINDER): Will continue home CPAP. Assessment & Plan (05/14/2021 3:23 PM MAINSPRING WINDER): Continue home CPAP (though has been using O2 instead) Assessment & Plan (05/10/2021 1:21 AM MAINSPRING WINDER): Continue home CPAP Assessment & Plan (10/26/2018 [...] renally dose meds Type 2 diabetes mellitus without complication 09/06/19 18 10/18/2022 Encounters Date Type Department Care Team Description 07/20/2024 Orders Only [facility] [address] [place] [address] [place] [address] Bruce Justice MD 06/15/2024 Orders Only [facility]phrology [address] [place] [address] [place] [address] Bruce Justice MD 05/27/[address] [facility] [address] [place] [address] Suha Marks LPN 05/26/[address] [facility] [facility] [address] [place] [address] Suha Marks LPN 05/24/2024 5:50 PM MAINSPRING WINDER Anesthesia Event [facility] Operating Room [address] [place] [address] Sloan Osborn MD Heuvelman, Katherine Marie, NP 05/11/2024 Orders Only [facility] Nephrology [address] [place] [address] [place] [address] Bruce Justice MD from Last 3 Months Immunizations Immunization Administration [...] D deficiency Kidney transplant recipient Kristine-Manzano tear 2016 Renal disorder s/p transplant End stage renal disease (HCC) s/ p transplant/ Dialysis Fri//Sat [facility] in [place], [place] Ureteral obstruction, right Hypertension Chronic kidney disease Claustrophobia Hx of arteriovenostomy for renal dialysis 3 times a week Fri, , and Friday Family History Medical History Relation Name [...] drink = 0.6 oz pur e alcohol) [facility] Utilities Answer Date Recorded In the past 12 months has e [employer], gas, oil, or water [employer] threatened to shut off services in your [...] declined 01/01/2024 How often do you attend tenriism or jew serv ices? Patient declined 01/01/2024 Do you belong to any clubs o r organizations such as tenriism groups, unions, fraCympel or athletic groups, or school groups? Patient [...] place to sleep or slept in a mcfp (including now)? No 04/23/2023 Housing Stability Vital Sign Answer Ladair e Recorded In the last 12 months, was t here a time when you were not able to pay the mortgage or rent on time? Patient declined 01/01/20 24 In the past 12 months, how m any times have you moved where you were living? 0 01/01/2024 At any time in the past 12 m [facility], were you homeless or living in a mcfp (including now)? Patient declined 01/01/2024 Personal Safety [...] 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, [employer]ING [employer], [employer]) 03/03/2023 Comments No Sex and Gender Information Value Date Recorded Sex Assigned at Not on file Legal Sex Female 1:10 PM MAINSPRING WINDER Gender Identity Not on file Sexual Orientation [...] Comments Pt reports 4-[address], cannot remember the exact number. All [...] 87.1 kg (192 lb) 05/05/2024 3:16 PM [facility] Height 162.6 cm (5' 4 ) 05/05/2024 3:16 PM [facility] Body Mass Index 32.96 05/05/2024 3:16 PM [facility] Plan of Treatment Health Maintenance Due Date [...] history exists Medical Devices Implanted Type Area Speech Pathology Teacher Device Identifier Shelf Expiration Date Model / Serial / Lot [employer] Universa 6fr 24cm Radiopaque Graduate Firm Monofilament Tether [id number] - Sn/A - [id number] Implanted:Qty: 1 on 05/08/2022 by Timi Hernandez MD at [facility] Stent Right: Ureter [employer] 02/15/2025 [id number] / N/A / [id number] [employer] Universa 6fr 24cm Radiopaque Graduate Firm Monofil[employer] Tether [id number] - [id number] Implanted:Qty: 1 on 08/14/2022 by Timi Hernandez MD at [facility] Stent Right: Ureter [employer] 12/19/2024 [id number] / / [id number] [employer] Stent Ureteral Set Double Pigtail Radiopaque Tip Universa 9wqq69al Polyurethane Hydrophilic Coated [id number] - [id number] Implanted:Qty: 1 on 09/03/2023 at [facility] Right: Ureter [employer] 10/16/2025 [id number] / / [id number] [employer] Stent Ureteral Set Double Pigtail Radiopaque Tip Universa 2por00hg Polyurethane Hydrophilic Coated [id number] - [id number] Implanted:Qty: 1 on 01/21/2024 at [facility] Right: Ureter [employer] 07/02/2024 [id number] / / [id number] Explanted Type Area Speech Pathology Teacher Device Identifier Shelf Expiration Date Model / Serial / Lot [employer] Maddi [id number] 4.8fr 14cm Taper Tip Bladder Raoul Low Profile Large Inner Lumen Latex Free - [id number] Implanted:Qty: 1 on 11/28/2018 by Timi Hernandez MD at [facility] Explanted:Qty: 1 on 02/08/2019 by Ricardo Pineda MD at [facility] Stent N/A: Ureter [employer] [id number] 07/15/2019 [id number] / / [id number] Description:Transplant kidne y ureter; stent intact [employer] Maddi [id number] 4.8fr 14cm Taper Tip Bladder Raoul Low Profile Large Inner Lumen Latex Free - [id number] - [id number] Implanted:Qty: 1 on 02/08/2019 by Ricardo Pineda MD at [facility] Explanted:Qty: 1 on 05/03/2019 by Blaire Miller MD at [facility] Stent Right: Ureter [employer] 06/18/2020 [id number] / [id number] / [employer] [id number] 4.8fr 14cm Taper Tip Bladder Raoul Low Profile Large Inner Lumen Latex Free - [id number] Implanted:Qty: 1 on 05/03/2019 by Blaire Miller MD at [facility] Explanted:Qty: 1 on 09/13/2019 by Timi Hernandez MD at [facility] Stent Ureter [employer] [id number] 08/09/2021 [id number] / / [id number] [employer] [id number] Inlay Charlo 4.7fr 14cm Pusher Fluoro Marker Atraumatic Insertion Latex Free - [id number] Implanted:Qty: 1 on 03/08/2020 by Timi Hernandez MD at [facility] Explanted:Qty: 1 on 01/31/2021 by Timi Hernandez MD at [facility] Stent Right: Ureter [employer] 11/27/2021 [id number] / / [id number] [employer] [id number] Set Stent 14cm 4.7fr Yemassee Mandril Small 2 Pigtail Curve - [id number] - [id number] Implanted:Qty: 1 on 08/23/2020 by Timi Hernandez MD at [facility] Explanted:Qty: 1 on 01/31/2021 by Timi eHrnandez MD at [facility] Stent Right: Ureter [employer] 05/23/2023 [id number] / [id number] / [id number] [employer] [id number] Set Stent 14cm 4.7fr Yemassee Mandril Small 2 Pigtail Curve - [id number] Implanted:Qty: 1 on 11/15/2020 by Timi Hernandez MD at [facility] Explanted:Qty: 1 on 01/31/2021 by Timi Hernandez MD at [facility] Stent Right: Ureter [employer] 09/20/2023 [id number] / / [id number] [employer] [id number] Inlay Charlo 6fr 24cm Pusher Fluoro Marker Atraumatic Insertion Latex Free - [id number] Implanted:Qty: 1 on 06/05/2021 by Gary Urban MD at [facility] Explanted:Qty: 1 on 11/14/2021 by Timi Hernandez MD at [facility] Stent Right: Ureter [employer] [facility] [id number] 10/24/2025 [id number] / / [id number] [employer] Universa 6fr 24cm Radiopaque Graduate Firm Monofilament Tether [id number] - [id number] Implanted:Qty: 1 on 11/14/2021 by Timi Hernandez MD at [facility] Explanted:Qty: 1 on 02/13/2022 at [facility] Stent Right: Ureter [employer] 07/19/2024 [id number] / / [id number] [employer] Universa 6fr 24cm Radiopaque Graduate Firm Monofil[employer] Tether [id number] - [id number] Implanted:Qty: 1 on 02/13/2022 by Timi Hernandez MD at [facility] Explanted:Qty: 1 on 05/08/2022 by Timi Hernandez MD at [facility] Stent [employer] 10/08/2024 [id number] / / [id number] [employer] Universa 6fr 20cm Radiopaque Positioner Monofilament Tether 2 [id number] - [id number] - [id number] Implanted:Qty: 1 on 11/06/2022 by Timi Hernandez MD at [facility] Explanted:Qty: 1 on 03/17/2023 by Carson Gatica DO at [facility] Stent Right: Ureter [employer] 02/18/2025 [id number] / [id number] / [id number] [employer] Universa 6fr 20cm Radiopaque Positioner Monofilament Tether 2 [id number] - Sn/A - [id number] Implanted:Qty: 1 on 06/04/2023 by Timi Hernandez MD at [facility] Explanted:Qty: 1 on 01/21/2024 by Neel Rodriguez MD at [facility] Stent Right: Ureter [employer] 07/02/2024 [id number] / N/A / [id number] Description:Implant pause co mpleted prior to opening implant on sterile field [employer] Maddi [id number] 4.8fr 16cm Taper Tip Bladder Raoul Low Profile Large Inner Lumen Latex Free - [id number] Implanted:Qty: 1 on 09/13/2019 by Timi eHrnandez MD at [facility] Explanted:Qty: 1 on 03/08/2020 at [facility] Right: Ureter [employer] 09/28/2020 [id number] / / [facility] [employer] [id number] Inlay Charlo 4.7fr 14cm Pusher Fluoro Marker Atraumatic Insertion Latex Free - [id number] Implanted:Qty: 1 on 12/08/2019 by Timi Hernandez MD at [facility] Explanted:Qty: 1 on 06/07/2020 by Timi Hernandez MD at [facility] Right: Ureter [employer] 11/27/2021 [id number] / / [id number] [employer] [id number] Inlay Charlo 4.7fr 14cm Pusher Fluoro Marker Atraumatic Insertion Latex Free - [id number] Implanted:Qty: 1 on 06/07/2020 by Timi Hernandez MD at [facility] Explanted:Qty: 1 on 01/31/2021 by Timi Hernandez MD at [facility] Right: Ureter [employer] 11/27/2021 [id number] / / [id number] [employer] S14519 Set Stent 14cm 4.7fr Yemassee Mandril Small 2 Pigtail Curve - [id number] Implanted:Qty: 1 on 01/31/2021 by Timi Hernandez MD at [facility] Explanted:Qty: 1 on 06/05/2021 by Gary Urban MD at [facility] Urethra [employer] [id number] 07/15/2022 [id number] / / [id number] Description:Intact and compl ete [employer] Universa 6fr 20cm Radiopaque Positioner Monofilament Tether 2 [id number] - [id number] Implanted:Qty: 1 on 03/17/2023 by Carson Gatica DO at [facility] Explanted:Qty: 1 on 06/04/2023 by Timi Hernandez MD at [facility] Right: Ureter [employer] [id number] 10/24/2025 [id number] / / [id number] Procedures Procedure Name Priority Date/Time Associated Diagnosis [...] HIGHLY SENSITIVE, LC/MS/MS Routine 06/15/2024 10:01 AM [facility] PROTEIN / CREATININE RATIO, URINE, RANDOM Routine 06/15/2024 10:01 AM [facility] RENAL FUNCTION PANEL Routine 06/15/2024 10:01 AM [facility] CBC WITH AUTO DIFFERENTIAL Routine 06/15/2024 10:01 AM [facility] COPY(IES) SENT TO: Routine 06/15/2024 10:01 AM [facility] BK VIRUS, DNA, QUANTITATIVE Routine 06/15/2024 10:01 AM [facility] CYTOMEGALOVIRUS (CMV) DNA, QUANT GEN LAB Routine 06/15/2024 10:01 AM [facility] PROTEIN / CREATININE RATIO, URINE, RANDOM Routine 05/11/2024 8:55 AM [facility] RENAL FUNCTION PANEL Routine 05/11/2024 8:55 AM [facility] TACROLIMUS, HIGHLY SENSITIVE, LC/MS/MS Routine 05/11/2024 8:55 AM [facility] CBC WITH AUTO DIFFERENTIAL Routine 05/11/2024 8:55 AM [facility] COPY(IES) SENT TO: Routine 05/11/2024 8: 55 AM [facility] CYTOMEGALOVIRUS (CMV) DNA, QUANT GEN LAB Routine 05/11/2024 8:55 AM [facility] BK VIRUS, DNA, QUANTITATIVE Routine 05/11/2024 8:55 AM [facility] HEPATITIS PANEL, ACUTE STAT 4 10:00 AM CDT PYELOGRAM - RETROGRADE Obstruction of right ureter Hydronephrosis, right Case Notes 05/21@1125- Dr. 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 surgery due to a meeting from 11:30 and 1:00 per Suha via email(EF) 05/11@1540- Per Suha via case msg - Please put 05/24/2024 in the depot until patient notify's tx- DMF 05/07- Dr. Hernandez has a gap [...] 05/24/2024 in the depot until patient notify's tx- DMF 05/07- Dr. 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 surgery due to a meeting from 11:30 and 1:00 per Suha via email(EF) Special Needs C ARM FLOROSCOPY from Last 3 Months or Most Recently Relevant to Health Maintenance Results * (ABNORMAL) Tacrolimus, Highly Sensitive, LC/MS/MS (07/20/2024 8:35 AM CDT) Tacrolimus, Highly Sensitive, LC/MS/MS <1.0(L) mcg/L [facility] [...] PM CDT LB FASTING:YES FASTING: YES Bruce Jusitce MD LAB BLOOD ORDERABLES Final Resu lt [facility] [address] [place] [address] * Cytomegalovirus (CMV) DNA PCR, quantitative (07/20/2024 8:35 AM CDT) Pathologist [facility] CMV DNA qn Not Detected Not Detected IU/mL [facility] CMV DNA log IU/mL Not Detected Not Detected Log IU/mL [facility] Comment: (Note) For additional information, please refer to [email or web address] Space.Zapper/faq/CMVandEBVPCR (This link is being provided for informational/educational purposes only.) MDF med fusion [address] [facility] [address] [facility] [address] Laurita Deleon MD, PhD 07/20/2024 8:35 AM CDT 07/20/2024 8:37 AM CDT Narrative [facility] - 07/24/2024 2:46 PM CDT LB FASTING:YES FASTING: YES us Bruce Justice MD LAB MICROBIOLOGY - GENERAL ORDE RABLES Final Result Performing Organization Address City/[facility]/ZIP Co de Phone Number [facility] [address] [place] [address], [address] [place] [phone] * COPY(IES) SENT TO: (07/20/2024 8:35 AM CDT) COPY(IES) SENT TO: [facility] Comment: [facility] - COPY TO [address] [address] 07/20/2024 8:35 AM CDT 07/20/2024 8:37 AM CDT Narrative [facility] - 07/24/2024 2:46 PM CDT LB FASTING:YES FASTING: YES us Bruce Justice MD LAB BLOOD ORDERABLES Final Resu lt Performing Organization Address [facility] Co de Phone Number [facility] * (ABNORMAL) BK virus, DNA, quantitative (07/20/2024 8:35 AM CDT) BK virus, PCR <21.5(A) Not Detected IU/mL [facility] Comment: Detected BK Virus DNA was detected below 21.5 IU/mL. Viral load in this range cannot be accurately quantifi BK Virus DNA, Real Time PCR <1.33(A) Not Detected Log IU/mL [facility] Comment: [facility] [address] [place] [address],[address] [place] [address] Laurita Deleon MD, PhD 07/20/2024 8:35 AM CDT 07/20/2024 8:37 AM CDT Narrative [facility] - 07/24/2024 2:46 PM CDT LB FASTING:YES FASTING: YES us Bruce Justice MD LAB MICROBIOLOGY - GENERAL ORDE RABLES Final Result Performing Organization Address City/[facility]/ZIP Co de Phone Number [facility] [address] [place] [address], [address] [place] [phone] * CBC with auto differential (07/20/2024 8:35 AM CDT) [facility] WBC 7.2 3.8 - 10.8 Thousand/u [...] BLOOD ORDERABLES Final Resu Performing Organization Address [facility] de Phone Number [facility] [address] [place] [address] * (ABNORMAL) Protein / creatinine ratio, urine, [...] Justice MD LAB URINE ORDERABLES Final Resu Performing Organization Address [facility] de Phone Number [facility] [address] [place] [address] * (ABNORMAL) Renal function panel (07/20/2024 8:35 [...] BLOOD ORDERABLES Final Resu Performing Organization Address [facility] de Phone Number [facility] [address] [place] [address] * (ABNORMAL) Tacrolimus, Highly Sensitive, LC/MS/MS (06/15/2024 10:01 AM [facility]) [facility] Tacrolimus, Highly Sensitive, LC/MS/MS <1.0(L) mcg/L [facility] Comment: Verified by repeat analysis. No definitive therapeutic or toxic ranges have been established. Optimal blood drug levels are influenced by type of transplant, patient response, time post- transplant, co-administration of other drugs, and drug formulation. The following trough range is a suggested guideline: 5.0-20.0 mcg/L. 06/15/2024 10:0 1 AM [facility] 06/15/2024 10:02 AM [facility] Narrative [facility] - 06/18/2024 10:27 AM [facility] LB Bruce Justice MD LAB BLOOD ORDERABLES Final Resu lt Performing Organization Address [facility] de Phone Number [facility] [address] [place] [address] * Cytomegalovirus (CMV) DNA PCR, quantitative (06/15/2024 10:01 AM [facility]) CMV DNA qn Not Detected Not Detected IU/mL [facility] CMV DNA log IU/mL Not Detected Not Detected Log IU/mL [facility] Comment: (Note) For additional information, please refer to http://education.YABUY/faq/CMVandEBVPCR (This link is being provided for informational/educational purposes only.) MD med fusion [address] [address],[address] [facility] [address] Laurita Deleon MD, PhD 06/15/2024 10:0 1 AM [facility] 06/15/2024 10:02 AM [facility] Narrative [facility] - 06/18/2024 10:27 AM [facility] LB Bruce Justice MD LAB MICROBIOLOGY - GENERAL ORDE [facility] Final Result Performing Organization Address City/[facility]/ZIP Co de Phone Number [facility] [address] [place] [address], [address] [place] [phone] * COPY(IES) SENT TO: (06/15/2024 10:01 AM [facility]) COPY(IES) SENT TO: [facility] Comment: [facility] - COPY TO [address] [address] 06/15/2024 10:0 1 AM [facility] 06/15/2024 10:02 AM [facility] Narrative [facility] - 06/18/2024 10:27 AM [facility] LB Bruce Justice MD LAB BLOOD ORDERABLES Final Resu lt [facility] * (ABNORMAL) BK virus, DNA, quantitative (06/15/2024 10:01 AM [facility]) BK virus, PCR 41(A) Not Detected IU/mL [facility] BK Virus DNA, Real Time PCR 1.61(A) Not Detected Log IU/mL [facility] Comment: [facility] med fusion [address] [address],[address] [place] [address] Laurita Deleon MD, PhD 06/15/2024 10:0 1 AM [facility] 06/15/2024 10:02 AM [facility] Narrative [facility] - 06/18/2024 10:27 AM [facility] LB Bruce Justice MD [facility] Final Result [facility] [address] [address], [address] [place] [address] * (ABNORMAL) CBC with auto differential (06/15/2024 10:01 AM [facility]) Pathologist [facility] WBC 7.8 3.8 - 10.8 Thousand/u L [...] [facility] 06/15/2024 10:0 1 AM [facility] 06/15/2024 10:02 AM [facility] Narrative [facility] - 06/18/2024 10:27 AM [facility] LB Bruce Justice MD LAB BLOOD ORDERABLES Final Resu lt [facility] [address] [facility] [place] [address] * (ABNORMAL) Protein / creatinine ratio, urine, random (06/15/2024 10:01 AM [facility]) Creatinine, ur 21 20 - 275 mg/dL [facility] Protein/creati nine ratio 35,000(H) 24 - 184 mg/g creat [facility] Protein/Creati nine Ratio 35.000(H) 0.024 - 0.184 mg/mg creat [facility] Protein, ur, quant 735(H) 5 - 24 mg/dL [facility] Comment: Verified by repeat analysis. 06/15/2024 10:0 1 AM [facility] 06/15/2024 10:02 AM [facility] Narrative [facility] - 06/18/2024 10:27 AM [facility] LB Bruce Justice MD LAB URINE ORDERABLES Final Resu lt [employer] [address] [place] [address] * (ABNORMAL) Renal function panel (06/15/2024 10:01 AM [facility]) Glucose 90 65 - 99 mg/dL [facility] [...] [facility] 06/15/2024 10:0 1 AM [facility] 06/15/2024 10:02 AM [facility] Narrative [facility] - 06/18/2024 10:27 AM [facility] LB us Bruce Justice MD LAB BLOOD ORDERABLES Final Resu lt [facility] [address] [place] [address] * (ABNORMAL) Tacrolimus, Highly Sensitive, LC/MS/MS (05/11/2024 8:55 AM [facility]) Pathologist [facility] Tacrolimus, Highly Sensitive, LC/MS/MS 1.2(L) mcg/L [facility] Comment: No definitive therapeutic or toxic ranges have been established. Optimal blood drug levels are influenced by type of transplant, patient response, time post- transplant, co-administration of other drugs, and drug formulation. The following trough range is a suggested guideline: 5.0-20.0 mcg/L. 05/11/2024 8:55 AM [facility] 05/11/2024 8:56 AM [facility] Narrative [facility] - 05/15/2024 2:37 AM [facility] LB FASTING:YES FASTING: YES Bruce Justice MD LAB BLOOD ORDERABLES Final Resu lt [facility] [address] [place] [address] * Cytomegalovirus (CMV) DNA PCR, quantitative (05/11/2024 8:55 AM [facility]) CMV DNA qn Not Detected Not Detected IU/mL [facility] CMV DNA log IU/mL Not Detected Not Detected Log IU/mL [facility] Comment: (Note) For additional information, please refer to http://education.YABUY/faq/CMVandEBVPCR (This link is being provided for informational/educational purposes only.) MDF med fusion [address] [address],[address] [facility] [id number] Laurita Deleon MD, PhD 05/11/2024 8:55 AM [facility] 05/11/2024 8:56 AM [facility] Narrative [facility] - 05/15/2024 2:37 AM [facility] LB FASTING:YES FASTING: YES Bruce Justice MD LAB MICROBIOLOGY - GENERAL ORDE [facility] Final Result [facility] [address] [place] [address], [address] [place] [phone] * COPY(IES) SENT TO: (05/11/2024 8:55 AM [facility]) COPY(IES) SENT TO: [facility] Comment: [facility] - COPY TO MERGED WITH [facility] [address] [place] [address] 05/11/2024 8:55 AM [facility] 05/11/2024 8:56 AM [facility] Narrative [facility] - 05/15/2024 2:37 AM [facility] LB FASTING:YES FASTING: YES us Bruce Justice MD LAB BLOOD ORDERABLES Final Resu lt [facility] * BK virus, DNA, quantitative (05/11/2024 8:55 AM [facility]) Pathologist [facility] BK virus, PCR Not Detected Not Detected IU/mL [facility] BK Virus DNA, Real Time PCR Not Detected Not Detected Log IU/mL [facility] Comment: F med fusion [address] [place] [address],[address] [facility] [address] Laurita Deleon MD, PhD 05/11/2024 8:55 AM [facility] 05/11/2024 8:56 AM [facility] Narrative [facility] - 05/15/2024 2:37 AM [facility] LB FASTING:YES FASTING: YES us Bruce Justice MD LAB MICROBIOLOGY - [facility] Final Result Performing Organization Address [facility] Co de Phone Number [facility] [address] [place] [address], [address] [place] [address] * (ABNORMAL) CBC with auto differential (05/11/2024 8:55 AM [facility]) [facility] WBC 7.0 3.8 - 10.8 Thousand/u [...] % [facility] 05/11/2024 8:55 AM [facility] 05/11/2024 8:56 AM [facility] Narrative [facility] - 05/15/2024 2:37 AM [facility] LB FASTING:YES FASTING: YES us Bruce Justice MD LAB BLOOD ORDERABLES Final Resu lt [facility] [address] [place] [address] * (ABNORMAL) Protein / creatinine ratio, urine, random (05/11/2024 8:55 AM [facility]) Creatinine, ur 7(L) 20 - 275 mg/dL [facility] Protein/creati nine ratio 244,286(H) 24 - 184 mg/g creat [facility] Protein/Creati nine Ratio 244.286(H) 0.024 - 0.184 mg/mg creat [facility] Protein, ur, quant 1,710(H) 5 - 24 mg/dL [facility] Comment: Results verified by repeat analysis on dilution. 05/11/2024 8:55 AM [facility] 05/11/2024 8:56 AM [facility] Narrative [facility] - 05/15/2024 2:37 AM [facility] LB FASTING:YES FASTING: YES Bruce Justice MD LAB URINE ORDERABLES Final Resu lt Performing Organization Address City/[facility]/ZIP Co de Phone Number [facility] [address] [address] [address] * (ABNORMAL) Renal function panel (05/11/2024 8:55 AM [facility]) Pathologist [facility] Glucose 87 65 - 99 mg/dL [facility] [...] g/dL [facility] 05/11/2024 8:55 AM [facility] 05/11/2024 8:56 AM [facility] Narrative [facility] - 05/15/2024 2:37 AM [facility] LB FASTING:YES FASTING: YES Bruce Justice MD LAB BLOOD ORDERABLES Final Resu lt Performing Organization Address City/[facility]/ZIP Co de Phone Number [facility] [address] [address] [address] * Hepatitis panel, acute Blood (12/03/2023 10:00 [...] on 19. Hep C Ab Nonreactive Nonreactive [facility] Comment: Interpretive Data Nonreactive: Antibodies to HCV [...] last revised on 2019. HepBsAg Nonreactive Nonreactive [facility] Blood 12/03/2023 10:0 0 AM CDT 12/03/2023 10:01 AM CDT Anna Clarke MD LAB MICROBIOLOGY - GENERAL OR DERABLES Final Result [facility] [address] [address] Department [place] [address] from Last 3 Months or Most Recently Relevant to Health Maintenance Insurance [employer] [facility] HMO MEDICARE MEDICARE IDID MEDICARE MEDICARE [facility] IDPA Advance Directives For more information, please contact: [phone] * Full Code (Latest Code Status on [...] 10:10 AM 03/04/2023 8:53 PM Care Teams Cooling Tower Operator Relationship Specialty Start Date End Date Nikkie Gordon MD PCP - General Family Medicine 03/09/21 Nikkie Gordon MD 03/09/21 Susan Jones MD 11/27/18 Kristian Ram MD Consulting Physician Nephrology 05/05/19 Chelo Herzog, RN [address] [facility] [address] [place] [address] [place] Pilot 05/05/19 Davidson Martinez MD [address] [address] Financial Reserve Clerk Cardiology 08/16/21 Tyson Bales MD [address] [address] Financial Reserve Clerk Cardiovascular Disease 04/16/22 Kristian Ram MD [address] [place] [address] [address] [place] [address] Referring Physician Nephrology 03/11/23 Anna Clarke MD [address] [place] [address] [address] [place], [place] [id number] Consulting Physician Nephrology 04/24/23
--- OUTSIDE RECORDS SUMMARY | 2024-08-03 08:43 | XMS_ITS | Encounter Summary ---
Author Organization [facility] Address [address] [place] [address] Care Team Providers Care Waxing Machine Operator Helper Name Role Phone Nikkie Gordon MD Primary Care Provider [phone] Reason for Visit * Reason Comments Dialysis Visit Hemodialysis visit Encounter Details Date Type Department Care Team (Late st Contact Info) Description 06/04/2024 Chart Note [facility] [place] [address] [place] [address] Stephenie Saenz MD [address] [address] Dialysis Visit (Hemodialysis visit) Social History Tobacco Use Types Packs/Day Years Used Date Smoking Tobacco: Former Cigarettes 0.5 40 0 12/1982 - 12/2022 Smokeless Tobacco: Never Alcohol Use Standard Drinks/Week [...] as of this encounter Visit Diagnoses Diagnosis End-stage renal disease on hemodialysis (CMS/HCC)- Primary End stage renal disease documented in this encounter Care Teams Waxing Machine Operator Helper Relationship Specialty Start Date End Date Nikkie Gordon MD [address] [place] [id number] PCP - General Family Practice 04/04/23 documented as of this encounter
--- OUTSIDE RECORDS SUMMARY | 2024-08-03 08:43 | XMS_ITS | Clinical Summary ---
Author Organization [facility] Address [address] [place] [address] Care Team Providers Care Manager Gaming Name Role Phone Nikkie Gordon MD Primary Care Provider [phone] Tyson Bales MD Unavailable Unavailable Nikkie Gordon MD Unavailable Source Comments [facility],non-owned Affiliates and Associated Physician Practices is amultiple site organization consisting of ambulatory clinics and hospital sitesin [place], [place], [place] and [place]. This disclosure is being madepursuant to the Care Everywhere program and may not contain all information available regarding this patient. Last updated 18.[facility] Allergies Active Allergy Reactions [...] 5 MG tabletIndications:Jeannette santiago replaced by transplant ([facility]) Take 1 tablet by mouth once daily Z94.0 90 tablet 3 07/09/2018 Active tacrolimus (PROGRAF) 1 MG capsuleIndications:His tory of renal transplantation ([facility]),Long-term use of immunosuppressant medication Taking 7 mg [...] Overview (08/26/2018): S/P DDK-TXP in 2007 in [facility], followed by Dr Adriel Riley in in [facility]. Essential hypertension 11/15/2015 Chronic kidney disease-mineral [...] SCREENING 1955 MEDICARE AWV 12 MONTHS 1955 DTAP/TDAP/TD VACCINES (1 - Tdap) 09/06/1974 PNEUMOCOCCAL VACCINE 50+ (1 of 2 - PCV) 09/06/1974 ZOSTER VACCINE (1 of 2) 09/06/1974 Respiratory Syncytial Virus (RSV) Vaccine Pt: or over 60 yrs (1 - Risk 60-74 years 1-dose series) 2015 SCREENING FOR DIABETES 11/05/2021 9, 09/19/2018, 08/27/2018, Additional history exists MAMMOGRAM 12/19/2023 12/18/2021, 11/30/2018 COVID-19 VACCINE ( season) 2023 12/12/2021, 08/23/2021, 07/26/2021 DEPRESSION SCREENING 04/28/2024 INFLUENZA VACCINE (Season Ended) 2024 HEPATITIS C SCREENING Completed 09/02/2021 , 09/02/2021, 08/28/2021 HEPATITIS B VACCINE Aged Out No longe r eligible based on patient's age to complete this topic HIB VACCINE Aged Out No longer eligi ble based on patient's age to complete this topic HPV VACCINE Aged Out No longer eligi ble based on patient's age to complete this topic MENINGOCOCCAL (Group B) VACCINE SHARED DECISION-MAKING Aged Out No longer eligible based on patient's age to complete this topic MENINGOCOCCAL GROUPS A/C/Y/W VACCINE Aged Out No longer eligible based [...] 9:30 AM CDT Kidney replaced by transplant Long-term use of immunosuppressant medication Anemia in [...] patient. The patient is established with the [facility] surgical clinic and an electronic message [...] approximately 13% higher for people identified as -[place]. eGFR by MDRD 18(L) > OR = [...] 29 U/L [facility] Comment: Test Performed at: [facility] [id number] [place] [address] SHAN HOUSTON DO,MPH Blood BLOOD SPECIMEN / Unknown 10/10/2018 9:30 AM CDT 10/10/2018 9:34 AM CDT Jaiden Galicia PA-C LAB - CHEMISTRY ORDERABLES [facility] [id number] [place] [id number] from Last 3 Months or Most Recently Relevant to Health Maintenance Advance Directives * Full Code (Latest Code Status on File) Date Activated Date Inactivated Comments 08/26/2018 4:53 PM 08/28/2018 1:03 AM Care Teams Manager Gaming Relationship Specialty Start Date End Date Nikkie Gordon MD [address] [place] [address] PCP - General Family Medicine 11/06/21 Nikkie Gordon MD [address] [place] [address] PCP - [facility] 10/27/23 Tyson Bales MD [address] [place] [address] Cardiovascular Disease 11/06/21
--- OUTSIDE RECORDS SUMMARY | 2024-08-03 08:43 | XMS_ITS | Continuity of Care Document ---
Author Name [facility] Address [address] [place] [address] Organization [facility] Care Team Providers Care Wholes[employer] Broker Name Role Phone [facility] Unavailable Unavailable Problems Problem Status Onset Date [...] Comments Source allopurinol Assertion Drug allergy Active [facility] iodine topical Assertion Drug allergy Active [facility] Results Order Name Results Value Reference Range Date Interpretation Comments Source REFERENCE LABS HLA Single Antigen Id Class I See scanned image 07/05 14:06 :00 [facility] REFERENCE LABS HLA Antibody Screening Class I & II See scanned image 07/05 14:06 :00 [facility] Culture UrineX No growth at 100 CFU/ml, Final. 05/24 13:30 :00 [facility] XR C-Arm XR C-Arm XR General Diagnostic Accession # Exam Date/Time Procedure Ordering Provider [id number] 05/24/2024 07:35 [employer] XR C-Arm Raoul Potter MD Reason For Exam (XR C-Arm) Rt Ureteral stent placement Report OR C-arm case. Exam performed. No report to be issued. I have personally reviewed the images and attest to the contents of this report. * * *Final Report* * * Electronic ally Signed by: Renita [email or web address], [email or web address] Signed on: 05/24/24 10:39 05/24 07:20 :00 [facility] REFERENCE LABS HLA Anti-A Titer see scanned image 02/08 11:36 :00 [facility] Cardiac - SPECT Perfusion Pharmacolo gical Stress [place] Cardiac - SPECT Perfusion Pharmacologi genna Stress Nuc Med PET Accession # Exam Date/Time Procedure Ordering Provider [id number] 12/25/2023 13:30 CDT [place] Cardiac - Perfusion Raoul Potter MD Pharmalogi genna Ana Nolasco Reason For Exam ([place] Cardiac - Perfusion Pharmalogi genna Str) DSE non diagnostic Report EXAMINATIO N: Myocardial [...] EDV/sec Normal TTPF: < 230 millisecon ds ([facility] August 2014) Per NCDR Registry: The study [...] Signed on: 12/25/23 15:13 12/24 10:25 :33 [facility] REFERENCE LABS HLA Anti-A Titer see scanned image 10/26 11:25 :00 [facility] REFERENCE LABS HLA Antibody Screening Class I & II see scanned image 10/05 16:09 :00 [facility] GENERAL CHEMISTRY Sodium 136 mmol/L 136 - 145 09/22 16:32 :00 [facility] GENERAL CHEMISTRY Potassium 5.5 mmol/L 3.5 - 5.1 09/22 16:32 :00 [facility] CHEMISTRY Chloride 92 mmol/L 98 - 107 09/22 16:32 :00 [facility] GENERAL CHEMISTRY CO2 27 mmol/L 22 - 09/22 16:32 :00 [facility] GENERAL CHEMISTRY Glucose Lvl 98 mg/dL 70 - 139 09/22 16:32 :00 [facility] GENERAL CHEMISTRY BUN 18 mg/dL 8 - 23 09/22 16:32 :00 [facility] CHEMISTRY Creatinine, standardized 7.43 mg/dL 0.50 - 1.00 09/22 16:32 :00 Interpretive Data: Dtqeqa-wo-jcn e transgender patients on testosterone therapy should have results assessed using the male reference range. Tzsa-rq-yjnjy e transgender patients on hormone-modul ating therapy clinical judgment is advisedfor assessment. [facility] GENERAL CHEMISTRY Calcium 10.2 mg/dL 8.6 - 10.2 09/22 16:32 :00 [facility] CHEMISTRY Alkaline Phosphatase 60 units/L 35 - 104 09/22 16:32 :00 Interpretive Data: Normal range for plasma alkaline phosphatase in females 20 years or older: 35-104 U/L according to atmospheric drier tender' s instructions 35-129 U/L according to data analysis on adult females who presented to [facility] in 2021 without a significant diagnosis Clinical judgement is advised. Rjathb-tm-dnu e transgender patients on testosterone therapy should have results assessed using the male reference range. Owxo-bj-idmem e transgender patients on hormone-modul ating therapy clinical judgment is advisedfor assessment. [facility] GENERAL CHEMISTRY AST-SGOT 13 units/L 09/22 16:32 :00 [facility] CHEMISTRY ALT-SGPT 9 units/L 10 - 35 09/22 16:32 :00 [facility] CHEMISTRY T Bili 0.40 mg/dL 0.00 - 1.60 09/22 16:32 :00 [facility] CHEMISTRY Total Protein 7.4 g/dL 6.6 - 8.7 09/22 16:32 :00 [facility] GENERAL CHEMISTRY Albumin 4.1 g/dL 3.5 - 5.2 09/22 16:32 :00 [facility] CHEMISTRY Estimated GFR for Adults 6 mL/min/1.7 3m 09/22 16:32 :00 Result Comment: The eGFR was estimated using the CKD-EPI equation. The National Kidney Foundation recommends that all clinical labs utilize this equation: Hattie , Ellis LA, Estuardo CH, et al. A new equation to estimate glomerular filtration rate. Veronica Phytopathology Teacher Med. 2009;150(9):6 04-612. For calculation reference see https://www.k idney.org/pro fessionals/kd oqi/gfr_calcu lator Interpretive Data: Changed to CKD-EPI 2020 on 2020. [facility] GENERAL CHEMISTRY Anion gap 22 mmol/L 0 - 20 09/22 16:32 :00 [facility] CHEMISTRY Estimated GFR for peds Not calculated 09/22 16:32 :00 Interpretive Data: The estimated GFR was calculated using the Triny hernadez Orozco equation (2009) . Reference: Pediatric GFR calculator at National Kidney Foundation Website. [facility] CHEMISTRY Triglyceride s 98 mg/dL 0 - 150 09/22 16:32 :00 Interpretive Data: Less than 150 Normal 150 - 199 Borderline high 200 - 499 High 500 and above Very high National Cholesterol Education Program [facility] [address] [address] [place] [address] http://www.nh lbi,nih.gov [facility] CHEMISTRY Cholesterol HDL Ratio 1.9 09/22 16:32 :00 Interpretive Data: The cholesterol HDL ratio is the best overall predictor of heart disease. -Less than 5 is normal -From 5 to 9 there is increasing risk -Higher than 9 is high risk. A ratio higher than 9 will often require prescription medication to help prevent heart disease. See http://[place]-al go.[facility]/Jessica velazquez/Lipi d.htm for more information. [facility] CHEMISTRY LDL (Calculated) 73 mg/dL 0 - 129 09/22 16:32 :00 Interpretive Data: LDL Cholesterol Level mg/dL Category Less than 100 Optimal 100 to 129 Near or above optimal 130 to 159 Borderline high 160 to 189 High 190 and above Very High Note: Values < 80 mg/dL may indicate hypobetalipop roteinemia, if not on Statin therapy. Reference: ATP III Guidelines, http://[place]-jessica go.[facility]/Jessica velazquez/Lipi d.htm National Cholesterol Education Program [facility] Health Information Network [address] [address] [place]ane VALENTINE [address] http:www.nhlb i.nih.gov Footnote: Depending on cardiac risk factors, age, and sex, [facility] Cardiology prefers: <75 mg/dl optimal <100 mg/dl desirable [facility] GENERAL CHEMISTRY HDL Cholesterol 106 mg/dL 50 - 60 09/22 16:32 :00 Interpretive Data: HDL Cholesterol Level mg/dL Category Less than 40(for Men) Low HDL cholesterol. A major risk factor for heart disease. Less than 50 (for Women) 60 and above High HDL cholesterol. An HDL of 60 mg/dL and above is considered protective against heart disease. National Cholesterol Education Program [facility] Health Information Network [address] [address] [place]ane VAL[place] [address] http:www.nhlb i.nih.gov [facility] GENERAL CHEMISTRY Cholesterol 199 mg/dL 0 - 200 09/22 16:32 :00 [facility] GENERAL CHEMISTRY Phosphorus 4.7 mg/dL 2.5 - 4.5 09/22 16:32 :00 [facility] CHEMISTRY Syphilis Antibody, IgG and Ig M Nonreactiv e 9 *NA* (09/23/23 11:32 AM) 09/22 16:32 :00 Interpretive Data: Repeatedly reactive samples will reflex to RPR for Titer. If RPR results are not confirmatory, Syphilis Antibody by TP-PA will be performed. [facility] HEMATOLOGY PROFILES WBC 8.40 x10(9)/L 3.50 - 10.50 09/22 16:32 :00 [facility] HEMATOLOGY PROFILES RBC 4.22 x10(12)/L 3.90 - 5.03 09/22 16:32 :00 [facility] HEMATOLOGY PROFILES HGB 12.6 g/dL 12.0 - 15.5 09/22 16:32 :00 Interpretive Data: Vjzrig-bi-cwj e transgender patients on testosterone therapy should have results assessed using the male reference range. Pjom-sd-dngkm e transgender patients on hormone-modul ating therapy clinical judgment is advisedfor assessment. [facility] HEMATOLOGY PROFILES HCT 40.4 % 34.9 - 44.5 09/22 16:32 :00 Interpretive Data: Zrxuuq-ir-ryr e transgender patients on testosterone therapy should have results assessed using the male reference range. Fmln-sm-fqqow e transgender patients on hormone-modul ating therapy clinical judgment is advisedfor assessment. [facility] HEMATOLOGY PROFILES MCV 95.7 fL 81.6 - 98.3 09/22 16:32 :00 [facility] HEMATOLOGY PROFILES MCH 29.9 pg 26.0 - 33.0 09/22 16:32 :00 [facility] HEMATOLOGY PROFILES MCHC 31.2 g/dL 32.0 - 36.0 09/22 16:32 :00 [facility] HEMATOLOGY PROFILES RDW CV 17.4 % 11.9 - 15.5 09/22 16:32 :00 [facility] HEMATOLOGY PROFILES RDW SD 60.0 fL 36.4 - 46.3 09/22 16:32 :00 [facility] HEMATOLOGY PROFILES PLT 179 x10(9)/L 150 - 450 09/22 16:32 :00 [facility] HEMATOLOGY PROFILES MPV 10.8 8.0 - 12.0 09/22 16:32 :00 [facility] HEMATOLOGY PROFILES % Nucleated RBCs 0.0 % 09/22 16:32 :00 [facility] HEMATOLOGY PROFILES Absolute Nucleated RBCs 0.0 x10(9)/L 0.0 - 0.0 09/22 16:32 :00 Interpretive Data: Normal values not established in patients less than 18 years old. [facility] HEMATOLOGY PROFILES % Neutrophils 87.0 % 09/22 16:32 :00 [facility] HEMATOLOGY PROFILES % Lymphocytes 8.2 % 09/22 16:32 :00 [facility] HEMATOLOGY PROFILES % Monocytes 3.6 % 09/22 16:32 :00 [facility] HEMATOLOGY PROFILES % Eosinophils 0.1 % 09/22 16:32 :00 [facility] HEMATOLOGY PROFILES % Basophils 0.1 % 09/22 16:32 :00 [facility] HEMATOLOGY PROFILES % Immature Granulocytes 1.00 % 0.02 - 0.42 09/22 16:32 :00 [facility] HEMATOLOGY PROFILES Absolute Granulocytes 7.31 x10(9)/L 1.70 - 7.00 09/22 16:32 :00 [facility] HEMATOLOGY PROFILES Abs Lymphocytes 0.69 x10(9)/L 0.90 - 2.90 09/22 16:32 :00 [facility] HEMATOLOGY PROFILES Abs Monocytes 0.30 x10(9)/L 0.30 - 0.90 09/22 16:32 :00 [facility] HEMATOLOGY PROFILES Abs Eosinophils 0.01 x10(9)/L 0.05 - 0.50 09/22 16:32 :00 [facility] HEMATOLOGY PROFILES Abs Basophils 0.01 x10(9)/L 0.00 - 0.30 09/22 16:32 :00 [facility] HEMATOLOGY PROFILES Abs Immature Granulocytes 0.08 x10(9)/L 0.00 - 0.03 09/22 16:32 :00 [facility] IMMUNOLOGY /VIROLOGY Hep B Surface Ag Nonreactiv e *NA* (09/23/23 11:32 AM) 09/22 16:32 :00 [facility] IMMUNOLOGY /VIROLOGY Hepatitis B Surface Ag Interpretati on Hepatitis B surface antigen was not detected. This does not exclude the possibilit y of exposure to, or infection with Hepatitis B Virus. 09/22 16:32 :00 [facility] IMMUNOLOGY /VIROLOGY Hep B Surface Kalee Nonreactiv e *NA* (09/23/23 11:32 AM) 09/22 16:32 :00 [facility] IMMUNOLOGY /VIROLOGY Hepatitis B Surface Ab Interpretati on Hepatitis B surface antibody not detected. Individual is considered not immune to infection with Hepatitis B Virus. 09/22 16:32 :00 [facility] IMMUNOLOGY /VIROLOGY Hep B Core Ab Nonreactiv e *NA* (09/23/23 11:32 AM) 09/22 16:32 :00 [facility] IMMUNOLOGY /VIROLOGY Hepatitis B Core Antibody Interpretati on Total antibodies to Hepatitis B Core were not detected. This does not exclude the possibilit y of exposure to, or infection with hepatitis. Levels of antibodies to hepatitis B core may be below the cut-off in early infection. 09/22 16:32 :00 [facility] IMMUNOLOGY /VIROLOGY Hep C Kalee by EIA Nonreactiv e *NA* (09/23/23 11:32 AM) 09/22 16:32 :00 [facility] IMMUNOLOGY /VIROLOGY Hepatitis C Antibody Interpretati on Antibodies to Hepatitis C were not detected. This does not exclude the possibilit y of prior exposure to, or infection with hepatitis. Levels of antibodies to hepatitis C may be below the cut-off in early infection. 09/22 16:32 :00 [facility] CHEMISTRY Intact PTH 329.0 pg/mL 15.0 - 65.0 09/22 16:32 :00 [facility] REFERENCE LABS EBV VCA IgM-[facility] Negative 09/22 16:32 :00 [facility] REFERENCE LABS EBV VCA IgG-[facility] Positive 09/22 16:32 :00 [facility] REFERENCE LABS EBV Nuclear Ag-[facility] Positive 09/22 16:32 :00 [facility] REFERENCE LABS EBV Ab Interp-[facility] See Comment 09/22 16:32 :00 Result Comment: [...] primary infection with EBV. Test Performed by: [facility] [address] [place] [address] Supervisor Dyer: Thomas Ron M.D. Ph.D.; CLIA# [id number] [facility] REFERENCE LABS HLA Anti-A Titer see scanned image 09/22 16:32 :00 [facility] XR Panorex XR Panorex XR General Diagnostic [...] Report* * * Electronic ally Signed by: Napoleon VALENTINE, Pat Pate Signed on: 09/23/23 11:59 09/22 11:02 :31 [facility] XR Chest XR Chest XR [...] Signed on: 09/23/23 12:57 09/22 11:02 :[address] [facility] [address] Kidney Stone Study CT [...] ns were made: KIDNEYS AND COLLECTING SYSTEM: [place] right Kidney: Markedly atrophic. Too small to characteri ze parenchyma l hypodensit ies. Stable indetermin ate 1.1 cm mildly hyperdense lower pole lesion. Punctate nonobstruc ting calculus in the lower pole. No hydrourete ronephrosi s. [place] left Kidney: Markedly atrophic. Too small to [...] indetermin ate attenuatio n lesion in both [place] kidneys, which are incomplete ly evaluated. Punctate nonobstruc ting right [place] renal calculus. 3. Other chronic/in cidental findings as described above. I have personally reviewed the images and attest to the contents of this report. * * *Final Report* * * Electronic ally Signed by: Vinny VALENTINE, Estela Allison Signed on: 09/23/23 09:53 09/22 08:49 :33 [facility] Consultation Notes Results Value Date Source Op/Procedure [...] fashion. Surgical timeout was performed. A 22 Romansh cystoscope with a 30 degree lens was [...] MARGUERITE CARCAMO Date of : 1955 UEI: [id number] Age: 68 year(s) Gender: Female Visit number: [id number] Procedure Information Procedure: Stress procedure: Echo Dobutamine [...] Disease. Procedure Staff Referring Physician: Abbey Nolasco Head Of Mobile: Eula Davison RDCS Interpreting physician: Katy Gonzalez [...] MARGUERITE CARCAMO Date of : 1955 UEI: [id number] Age: 68 year(s) Gender: Female Visit number: [id number] Procedure Information Procedure: TTE procedure: Echo Transthoracic [...] Disease. Procedure Staff Referring Physician: Abbey Nolasco Head Of Mobile: Eula Davison RDCS Interpreting physician: Katy Gonzalez [...] nephropathy, s/p renal transplant in 2007 @ [facility] where transplanted kidney eventually failed in 2021 [...] transplant kidney ureteral stent exchange. She gets [id number] stent exchanges for transplant kidney ureteral stricture. [...] nephropathy, s/p renal transplant in 2007 @ [facility] where transplanted kidney eventually failed in 2021 after COVID-19 infection, currently on in-center HD 3x week at [place], [place]. Additional PMHx includes anemia of chronic kidney disease, secondary hyperparathyroidism, hyperphosphatemia, hypertension, hyperlipidemia. She presents for cystoscopy with transplant kidney ureteral stent exchange. She gets [id number] stent exchanges for transplant kidney ureteral stricture. Plan: - to OR for transplant stent exchange. R/b/a discussed with the patient who voiced understanding. All questions answered. Procedural consent signed. 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, then home Pt staffed with [...] Signs Vital Sign Value Date Comments Source SBP NIBP 158 mm[Hg] 07/22/2024 14:46:00 [facility] DBP NIBP 146 mm[Hg] 07/22/2024 14:46:00 [facility] SpO2 96 % 07/22/2024 14:46:00 [facility] Weight (kg) 91.2 kg 07/22/2024 14:46:00 [facility] Temperature (Celsius) 36.0 Swathi 07/22/2024 14:46:00 [facility] Respiratory Rate 18 breaths/min 07/22/2024 14:46:00 [facility] BMI 35.1 kg/m2 07/22/2024 14:46:00 [facility] Height (cm) 161.1 cm 07/22/2024 14:46:00 [facility] Heart Rate 78 bpm 07/22/2024 14:46:00 -[facility] [place] 1.95 07/22/2024 14:46:00 -[facility] SpO2 96 % 05/24/2024 14:28:00 [facility] Heart Rate 75 bpm 05/24/2024 14:28:00 [facility] SBP NIBP 113 mm[Hg] 05/24/2024 14:28:00 [facility] DBP NIBP 66 mm[Hg] 05/24/2024 14:28:00 [facility] Temperature (Celsius) 35.8 Swathi 05/24/2024 14:28:00 [facility] Mean NIBP 78 mm[Hg] 05/24/2024 14:28:00 [facility] SpO2 94 % 05/24/2024 14:19:09 [facility] Heart Rate 73 bpm 05/24/2024 14:19:07 [facility] Respiratory Rate 18 breaths/min 05/24/2024 14:19:04 [facility] SBP NIBP 107 mm[Hg] 05/24/2024 14:15:00 [facility] DBP NIBP 61 mm[Hg] 05/24/2024 14:15:00 [facility] Mean NIBP 76 mm[Hg] 05/24/2024 14:15:00 [facility] SpO2 97 % 05/24/2024 14:14:38 [facility] Respiratory Rate 19 breaths/min 05/24/2024 14:14:37 [facility] Heart Rate 68 bpm 05/24/2024 14:14:25 [facility] Mean NIBP 83 mm[Hg] 05/24/2024 14:10:00 [facility] SBP NIBP 108 mm[Hg] 05/24/2024 14:10:00 [facility] DBP NIBP 69 mm[Hg] 05/24/2024 14:10:00 [facility] Heart Rate 70 bpm 05/24/2024 14:06:07 [facility] SpO2 94 % 05/24/2024 14:06:05 [facility] Respiratory Rate 14 breaths/min 05/24/2024 14:06:01 [facility] Mean NIBP 80 mm[Hg] 05/24/2024 14:05:00 [facility] SBP NIBP 104 mm[Hg] 05/24/2024 14:05:00 [facility] DBP NIBP 63 mm[Hg] 05/24/2024 14:05:00 [facility] Respiratory Rate 18 breaths/min 05/24/2024 14:03:33 [facility] Temperature (Celsius) 36.4 Swathi 05/24/2024 13:45:00 [facility] Weight (kg) 89.1 kg 05/24/2024 11:19:00 [facility] Temperature (Celsius) 36.3 Swathi 05/24/2024 11:19:00 [facility] Heart Rate 73 bpm 04/22/2024 16:06:00 [facility] Clinic Temperature (Celsius) 35.9 Swathi 09/23/2023 17:56:00 [facility] Heart Rate 71 bpm 09/23/2023 17:56:00 [facility] SBP NIBP 121 mm[Hg] 09/23/2023 17:56:00 [facility] DBP NIBP 63 mm[Hg] 09/23/2023 17:56:00 [facility] Height (cm) 159.5 cm 09/23/2023 17:56:00 [facility] Weight (kg) 89.65 kg 09/23/2023 17:56:00 [facility] BMI 35.2 kg/m2 09/23/2023 17:56:00 [facility] [place] 1.92 09/23/2023 17:56:00 [facility] Weight (kg) 91 kg 09/23/2023 14:35:00 [facility] Encounters Location Location Details Encounter Type Encounter Number Reason For Visit Attending Provider ADM Date DC Date Status Source [facility] Outpatient [id number] Labs [facility] 09/01 07:22 :00 09/01 23:59 :59 Discharge d [facility] Outpatient [id number] [facility] 09/22 13:40 :08 09/23 04:59 :[address] [facility] Outpatient [id number] [facility] 09/22 13:41 :35 09/23 04:59 :59 [facility] Surg Nephrology Clinic [id number] [facility] 09/22 17:44 :23 09/23 04:59 :59 [facility] Surg Nutrition Clinic [id number] [facility] 09/22 17:44 :46 09/23 04:59 :59 [facility] Surg Urology Clinic [id number] [facility] 09/22 17:45 :10 09/23 04:59 :59 [facility] Outpatient [id number] [facility] 10/05 16:08 :00 10/06 04:59 :59 [facility] Outpatient [id number] [facility] 10/26 11:24 :00 10/27 04:59 :59 [facility] Outpatient [id number] [facility] 12/24 14:04 :16 12/25 04:59 :59 [facility] [id number] Eder Gotti 12/24 18:12 :17 12/25 04:59 :59 [facility] Outpatient [id number] [facility] 01/06 13:16 :00 01/07 04:59 :59 [facility] Outpatient [id number] [facility] 02/08 11:32 :00 02/09 04:59 :59 [facility] Outpatient [id number] Raoul Erie 02/11 12:50 :00 02/12 04:59 :59 [facility] Outpatient [id number] Raoul Erie 04/05 15:43 :00 04/06 05:59 :59 [facility] [employer] Nephrology Clinic [id number] Prashanth Edward 04/22 15:52 :18 04/23 05:59 :59 [facility] [employer] Pulmonary N Environment al Med Between Visit [id number] 04/23 16:57 :16 04/24 05:59 :59 [facility] [employer] Nephrology Between Visit [id number] 04/26 15:16 :02 04/27 05:59 :59 [facility] Outpatient [id number] labs Raoul Erie 05/10 07:03 :00 05/10 23:59 :59 Active [facility] Day Surgery [id number] Raoul Erie 05/24 10:25 :03 05/24 15:14 :00 [facility] Nurse Phone Call Clinic [id number] Juan Emanuel 05/24 13:16 :21 05/25 05:59 :59 [facility] [employer] Pulmonary N Environment al Med Between Visit [id number] 05/31 18:04 :46 06/01 05:59 :59 [facility] Outpatient [id number] Raoul Erie 07/05 13:58 :00 07/06 04:59 :59 [facility] [employer] Nephrology Clinic [id number] Prashanth Edward 07/22 14:38 :38 07/23 04:59 :59 [facility] Procedures Procedure Code Date Perfomer Comments Source cholecystectomy [facility] Social History Social History Date Source No data available for this section 07/23/2024 [facility] No data available for this section 07/06/2024 [facility] No data available for this section 06/01/2024 [facility] No data available for this section 05/25/2024 [facility] No data available for this section 05/24/2024 [facility] No data available for this section 04/27/2024 [facility] No data available for this section 04/24/2024 [facility] No data available for this section 04/23/2024 [facility] No data available for this section 04/06/2024 [facility] No data available for this section 02/13/2024 [facility] No data available for this section 02/10/2024 [facility] No data available for this section 01/08/2024 [facility] No data available for this section 12/26/2023 [facility] No data available for this section 10/28/2023 [facility] No data available for this section 10/07/2023 [facility] No data available for this section 09/24/2023 [facility]
--- OUTSIDE RECORDS SUMMARY | 2024-08-03 08:43 | XMS_ITS | Encounter Summary ---
Author Organization [facility] Address [address] [place] [address] Phone Care Team Providers Care Quality Assurance Auditor Name Role Phone Nikkie Gordon MD Primary Care Provider [phone] Encounter Details Date Type Department Care Team (Late st Contact Info) Description 07/16/2019 Orders Only [facility] [address] [address] [place] [address] Trisha Bustillos MA [address] [facility] [address] [address] [place] [address] Chronic kidney disease, stage 3 (moderate) ([facility]) Social History Tobacco Use Types Packs/Day [...] (moderate) documented in this encounter Care Teams Quality Assurance Auditor Relationship Specialty Start Date End Date Nikkie Gordon MD [address] [place] [address] PCP - General 01/24/20 documented as of this encounter
--- OUTSIDE RECORDS SUMMARY | 2024-08-03 08:43 | XMS_ITS | Encounter Summary ---
Author Organization [facility] Address [address] [facility] [address] [place] [address] Phone Care Team Providers Care Manager Change Name Role Phone Nikkie Gordon MD Primary Care Provider Encounter Details Date Type Department Care Team (Late st Contact Info) Description 06/18/2019 Orders Only [facility] [address] [facility] [address] [place] [address] Trisha Bustillos MA [address] [facility] [address] [place] [address] Chronic kidney disease, stage 3 (moderate) ([facility]) Social History Tobacco Use Types [...] documented in this encounter Care Teams Manager Change Relationship Specialty Start Date End Date Nikkie Gordon MD [address] [place] [address] PCP - General 01/24/20 documented as of this encounter
--- OUTSIDE RECORDS SUMMARY | 2024-08-03 08:43 | XMS_ITS | Encounter Summary ---
Author Organization [facility] Address [address] [facility] [address] [place] [address] Phone Care Team Providers Care Chip Separator Name Role Phone Nikkie Gordon MD Primary Care Provider [phone] Encounter Details Date Type Department Care Team ([facility] st Contact Info) Description 05/21/2019 Orders Only [facility]. [address] [facility] [address] [place] [address] Trisha Bustillos MA [address] [facility] [address] [place] [address] Chronic kidney disease, stage 3 (moderate) ([facility]) Social History Tobacco Use Types Packs/Day [...] (moderate) documented in this encounter Care Teams Chip Separator Relationship Specialty Start Date End Date Nikkie Gordon MD [address] [place] [address] PCP - General 01/24/20 documented as of this encounter
--- OUTSIDE RECORDS SUMMARY | 2024-08-03 08:44 | XMS_ITS | Encounter Summary ---
Author Organization [facility] Address [address] [place] [address] Phone Care Team Providers Care Solar Mechanical Engineer Name Role Phone Nikkie Gordon MD Primary Care Provider [phone] Reason for Visit * Reason Comments Med Refill Encounter Details Date Type Department Care Team (Late st Contact Info) Description 01/25/2024 Refill [facility]. [address] [facility] [address] [place] [address] Kristian Ram MD [address] [facility] [address] [place] [address] Social History Tobacco Use Types [...] on filedocumented in this encounter Care Teams Solar Mechanical Engineer Relationship Specialty Start Date End Date Nikkie Gordon MD [address] [place] [address] PCP - General 01/24/20 documented as of this encounter
--- OUTSIDE RECORDS SUMMARY | 2024-08-03 08:44 | XMS_ITS | Clinical Summary ---
Author Organization [facility] Address [address] [place] [address] Phone Care Team Providers Care Freight Brake Operator Name Role Phone Nikkie Gordon MD Primary Care Provider [phone] Allergies Active Allergy Reactions Criticality Noted Date [...] for Pain. 15 Tablet 04/09/2023 4:00 PM BUTCHER OR SMALLGOODS MAKER 04/09/20 23 Active tacrolimus (ENVARSUS XR) 1 [...] 03/02/20 24 Active naloxone (NARCAN) 4 mg/spray Delta, Non-Aerosol EMERGENCY USE ONLY: Administer 1 spray [...] Overview (01/03/2024): S/P DDK-TXP in 2008 in [facility], followed by Dr Adriel Riley in [facility] in [facility]. Primary hypertension 11/15/2015 Encounters Date Type Department Care Team Description 07/06/2024 External Device Data STL ABSTRACTION Provider, Abstract 07/06/2024 External Device Data STL ABSTRACTION Provider, Abstract 07/02/2024 Chart Note [facility] [place] [address] [place] [address] Stephenie Saenz MD Dialysis Visit (Hemodialysis visit) 06/15/2024 External Device Data STL ABSTRACTION Provider, Abstract 06/04/2024 Chart Note [facility] [place] [address] [place] [address] Stephenie Saenz MD Dialysis Visit (Hemodialysis visit) 05/12/2024 External Device Data STL ABSTRACTION Provider, Abstract 05/07/2024 Chart Note [facility] [place] [address] [place] [address] Stephenie Saenz MD Dialysis Visit (Hemodialysis visit) [...] Comments Blood Pressure 142/62 03/02/2024 4:39 PM BUTCHER OR SMALLGOODS MAKER Pulse 84 03/02/2024 1:06 PM BUTCHER OR SMALLGOODS MAKER Temperature 36.9 C (98.4 F) 03/02/2024 4:39 PM BUTCHER OR [employer] MAKER Respiratory Rate 21 03/02/2024 4:39 PM BUTCHER OR [employer]GOOD[employer] MAKER Oxygen Saturation 100% 03/02/2024 4:39 PM BUTCHER OR [employer]GOOD[employer] MAKER Inhaled Oxygen Concentration - - Weight 90.5 kg (199 lb 8.3 oz) 03/02/2024 2:25 P M BUTCHER OR [employer]GO[employer] MAKER Height 162.6 cm (5' 4 ) 03/02/2024 3:20 AM BUTCHER OR SMALLGOODS MAKER Body Mass Index 34.25 03/02/2024 3:20 AM BUTCHER OR SMALLGOODS MAKER Plan of Treatment Health Maintenance Due Date Last Done Comments DIABETES ANNUAL FOOT EXAM 09/06/1973 DIABETES ANNUAL RETINAL EXAM 09/06/1973 DIABETES MICROALBUMIN ANNUAL SCREEN 09/06/1973 LDL CHOLESTEROL ANNUAL 09/06/1973 PNEUMOCOCCAL VACCINE 50+ YEA RS (1 of 2 - PCV) 09/06/1974 Traditional Medicare (ACO) A nnual Wellness Visit 09/06/1974 ZOSTER VACCINE (1 of 2) 09/06/1974 COLORECTAL SCREENING 09/06/2000 Colorectal Cancer Screening 09/06/2000 FIT-DNA Q 3 years 09/06/2000 FIT/FOBT Q 1 year 09/06/2000 Flex Sig/CT Colonography Q 5 years 09/06/2000 Lung Cancer Screening 09/06/2005 RSV VACCINE (60+ or ) (1 - Risk 60-74 years 1-dose series) 2015 BREAST CANCER SCREENING 12/18/2022 12/19/19 22, 12/18/2021, 02/22/2021, Additional history exists INFLUENZA VACCINE (#1) 2023 COVID-19 Vaccine (5 - 2023-2 5 season) 2023 03/19/2022, 12/12/2021, 08/23/2021, Additional history exists DIABETES HBA1C Q 6 MONTHS 07/01/2024 01/02/2024 DTAP/TDAP/TD VACCINES (2 - T d or Tdap) 08/29/2026 08/29/2016 OSTEOPOROSIS SCREENING Completed 02/19/2021, 2020 Medical Devices Implanted Type Area Senior Hr Manager Device Identifier Shelf Expiration Date Model / Serial / Lot Palindrome Precision Chronic Catheter Kit Implanted:Qty : 1 on 01/05/2024 by Ned Mccall MD at [facility] Catheter Right: Chest [employer] VASCULAR [employer]ER[employer] 06/25/2028 [id number] (REF #) / / [id number] Description:TRIAL NO CHARGE Clip Ligating Horizon Sm Ti [id number] - Csc - [id number] Implanted:Qty : 2 on 02/11/2024 by Ned Mccall MD at [facility] Clip Left: Arm [employer] 10/26/2028 [id number] / / [id number] Clip Ligating Horizon Med Ti [id number] - Csc - [id number] Implanted:Qty : 1 on 02/11/2024 by Ned Mccall MD at [facility] Clip Left: Arm TELEFLEX- WECK CLOSURE SYS 12/17/2028 [id number] / / [id number] Graft Advanta Vxt Sw [id number] - [id number] Implanted:Qty : 1 on 02/11/2024 by Ned Mccall MD at [facility] Graft Left: Arm GETINGE [employer] [id number] 12/14/2026 07100 / [id number] / Hemostatic Surgiflo 8ml W/ Thrombin 2994 - [id number] Implanted:Qty : 1 on 02/11/2024 by Ned Mccall MD at [facility] Hemostatic Left: Arm [employer]J- [employer] [id number] 08/25/2024 [id number] / / [id number] Procedures Procedure Name Priority Date/Time Associated Diagnosis Comments HEMOGLOBIN A1C Routine 01/02/2024 9:02 PM CDT from Last 3 Months or Most Recently Relevant to Health Maintenance Results * HEMOGLOBIN A1C (01/02/2024 9:02 PM CDT) HEMOGLOBIN A1C 5.2 <5.7 % 01/03/2024 9:59 AM CDT [facility] EST. AVG GLUCOSE, A1C 103 mg/dL 01/03/2024 9:59 AM CDT [facility] Blood Venipuncture / Unknown 01/02/2024 9:02 PM CDT 01/02/2024 9:06 PM CDT Narrative [facility] - 01/03/2024 9:59 AM CDT HGB A1C INTERPRETATION NORMAL: <5.7% PRE-DIABETES: 5.7 - 6.4% DIABETES: 6.5% OR GREATER us Rico Munguia MD CHEMISTRY ORDERABLES Final Re sult [facility] CLIA# [id number] [address] [place] [address] from Last 3 Months or Most Recently Relevant to Health Maintenance Insurance [employer] MEDICARE PART A AND B Advance Directives For more information, please contact: [phone] * Full Code (Latest Code Status on File) Date Activated Date Inactivated Comments 03/02/2024 4:40 AM 03/02/2024 11:09 PM * Full Code Date Activated Date Inactivated Comments 02/11/2024 9:35 AM 02/11/2024 8:01 PM * Full Code Date Activated Date Inactivated Comments 01/03/2024 9:02 AM 01/06/2024 3:29 PM Care Teams Freight Brake Operator Relationship Specialty Start Date End Date Nikkie Gordon MD [address] [place] [address] PCP - General Family Practice 04/04/23
--- OUTSIDE RECORDS SUMMARY | 2024-08-03 08:44 | XMS_ITS | Encounter Summary ---
Author Organization [facility] Address [address] [place] [address] Care Team Providers Care Dental Assistant Instructor Name Role Phone Nikkie Gordon MD Primary Care Provider [phone] Nikkie Gordon MD Unavailable [phone] Susan Jones MD Unavailable [phone] Kristian Ram MD Unavailable [phone] Chelo Herzog RN Unavailable [phone] Davidson Martinez MD Unavailable [phone] Lexis Nava RN Unavailable [phone] Emily Dixon MD Unavailable Tyson Bales MD Unavailable [phone] Kristian Ram MD Unavailable [phone] Anna Clarke MD Unavailable [phone] Encounter Details Date Type Department Care Team (Late st Contact Info) Description 03/05/2023 Documentation [facility] [address] [place] [address] Ella Levi LCSW Social History Tobacco Use Types Packs/Day Years Used Date Smoking Tobacco: Former Cigarettes 0.4 15.2 2 008 - 06/2022 Passive Smoke Exposure: Never Smokeless Tobacco: Never Alcohol Use Standard Drinks/Week Comments Never 0 (1 standard drink = 0.6 oz pur e alcohol) [facility] Utilities Answer Date Recorded In the past 12 months has th e [employer], [employer], oil, or water [employer] threatened to shut off services in your [...] often do you attend chur ch or gnosticist services? More than 4 times per year 03/03/2023 Do you belong to any clubs o r organizations such as protestant groups, unions, fraternal or athletic groups, or [...] slept in a fpc (including now)? No 03/03/2023 Education Answer Date Recorded What is the highest level of school you have completed or the highest degree you have received? 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 Never 03/06/2023 11:37 AM UTILITY LOCATOR Nikkie Ngo RN documented as of this encounter Miscellaneous Notes * Plan of Care - Ella Levi LCSW - 03/05/2023 11:46 AM CST 11:13 Received call from Tasha at [facility] Main Office [phone], stating that the Regional Orthopedic Rn at [facility] has denied this pt for dialysis at all of their [facility] dialysis facilities. Tasha stated the pt has been contacted and informed of this decision. ITY LOCATOR documented in this encounter Plan of Treatment [...] documented as of this encounter Care Teams Dental Assistant Instructor Relationship Specialty Start Date End Date Nikkie Gordon MD PCP - General Family Medicine 03/09/21 Nikkie Gordon MD 03/09/21 Susan Jones MD 11/27/18 Kristian Ram MD Consulting Physician Nephrology 05/05/19 Chelo Herzog, RN [address] [address] [employer] Crm Developer 05/05/19 Davidson Martinez MD [address] [facility] [address] [place] [address] Cargo Service Supervisor Cardiology 08/16/21 Lexis Nava RN [address] [facility] [address] [place] [address] [employer] Crm Developer 03/05/22 Emily Dixon MD [address] [facility] [address] [place] [address] Referring Physician Internal Medicine 03/05/22 3 Tyson Bales MD [address] [facility] [address] [place] [address] Cargo Service Supervisor Cardiovascular Disease 04/16/22 Kristian Ram MD [address] [place] [address] Referring Physician Nephrology 03/11/23 Anna Clarke MD [address] [facility] [facility] [address] [place] [address] Consulting Physician Nephrology 04/24/23 documented as of this encounter
--- OUTSIDE RECORDS SUMMARY | 2024-08-03 08:44 | XMS_ITS | Referral Summary ---
Author Organization [facility] [address] Address [address] [place] [address] Care Team Providers Care Director Software Quality Assurance Name Role Phone Nikkie Gordon MD Primary Care Provider [phone] Nikkie Gordon MD Unavailable [phone] Susan Jones MD Unavailable [phone] Kristian Ram MD Unavailable [phone] Chelo Herzog RN Unavailable [phone] Davidson Martinez MD Unavailable [phone] Tyson Bales MD Unavailable Kristian Ram MD Unavailable [phone] Anna Clarke MD Unavailable Encounters Date Type Department Care Team Description 07/20/2024 Orders Only [facility] Nephrology [address] [facility] 5th [place] [address] [place] [address] Bruce Justice MD 06/15/2024 Orders Only [facility] Nephrology [address] [facility] 5th [place] [address] [place] [address] Bruce Justice MD 05/27/2024 Telephone [facility] Urology [address] [facility] [address] [place] [address] Suha Marks LPN 05/26/2024 Telephone [facility] Urology [address] [facility] [address] [place] [address] Kendrick SuhaMARQUIS mai 05/24/2024 5:50 PM CLINICAL RESEARCH SPEC Anesthesia Event [facility] Operating Room [address] [place] [address] Sloan Osborn MD Heuvelman, Katherine Marie, NP 05/11/2024 Orders Only [facility] Nephrology [address] [facility] Medicine 5th [place] [address] [place] [address] Bruce Justice MD from Last 3 Months Allergies Active Allergy [...] 03/01/2023 Assessment & Plan (03/02/2023 12:00 PM CLINICAL RESEARCH SPEC): Body mass index is 34.15 kg/m . - discussed risks of obesity and association with chronic medical problems including HTN, DM, and NEREYDA - advised patient on importance of maintaining a diet and exercise regimen including cardiovascular and weight-bearing exercises - nutrition consultation Physical deconditioning 06/01/2021 Assessment & Plan (06/07/2021 2:29 PM CLINICAL RESEARCH SPEC): Multifactorial but mostly driven by her neuropathy and malnutrition - PT/OT recommending SNF. Pt not amenable. - Home PT/OT with 24 hr supervision. States son can provide supervision. Assessment & Plan (06/06/2021 2:58 PM CLINICAL RESEARCH SPEC): Multifactorial but mostly driven by her neuropathy -PT/OT recommending SNF. Pt not amenable. Assessment & Plan (06/05/2021 7:10 PM CLINICAL RESEARCH SPEC): Multifactorial but mostly driven by her neuropathy -PT/OT recommending SNF, she is considering but may still elect to discharge home Assessment & Plan (06/04/2021 9:50 AM CLINICAL RESEARCH SPEC): Multifactorial but mostly driven by her neuropathy -PT/OT recommending SNF, she is considering but may still elect to discharge home Assessment & Plan (06/03/2021 10:29 AM CLINICAL RESEARCH SPEC): Multifactorial but mostly driven by her neuropathy -PT/OT recommending SNF, she is considering but may still elect to discharge home Assessment & Plan (06/02/2021 12:57 PM CLINICAL RESEARCH SPEC): Multifactorial but mostly driven by her neuropathy -PT/OT recommending SNF, she is considering but may still elect to discharge home Assessment & Plan (06/01/2021 12:38 PM CLINICAL RESEARCH SPEC): Multifactorial but mostly driven by her neuropathy -PT/OT recommending SNF, she is considering but may still elect to discharge home Pyelonephritis of transplanted kidney vs UTI 06/2021 Assessment & Plan (06/07/2021 2:25 PM CLINICAL RESEARCH SPEC): Spiked temperature of 38.2 on 05/30 once [...] collection Assessment & Plan (06/06/2021 2:50 PM CLINICAL RESEARCH SPEC): Spiked temperature of 38.2 on 05/30 once [...] ) Assessment & Plan (06/05/2021 7:14 PM CLINICAL RESEARCH SPEC): Spiked temperature of 38.2 on 05/30 once [...] duration. Assessment & Plan (06/04/2021 9:51 AM CLINICAL RESEARCH SPEC): Spiked temperature of 38.2 on 05/30 once [...] sample Assessment & Plan (06/03/2021 10:33 AM CLINICAL RESEARCH SPEC): Spiked temperature of 38.2 on 05/30 once [...] cultures Assessment & Plan (06/02/2021 12:53 PM CLINICAL RESEARCH SPEC): Spiked temperature of 38.2 on 05/30 once [...] resulting Assessment & Plan (06/01/2021 12:34 PM CLINICAL RESEARCH SPEC): Spiked temperature of 38.2 on 05/30 once [...] cultures Assessment & Plan (05/31/2021 8:40 AM CLINICAL RESEARCH SPEC): Spiked temperature overnight of 38.2 once scheduled [...] 05/28/2021 Assessment & Plan (06/06/2021 2:58 PM CLINICAL RESEARCH SPEC): Poor appetite, encourage protein supplementations. Nutrition consult Assessment & Plan (06/05/2021 7:16 PM CLINICAL RESEARCH SPEC): Poor appetite, encourage protein supplementations. Nutrition consult Assessment & Plan (06/04/2021 9:52 AM CLINICAL RESEARCH SPEC): Poor appetite, encourage protein supplementations. Nutrition consult Assessment & Plan (06/03/2021 10:29 AM CLINICAL RESEARCH SPEC): Poor appetite, encourage protein supplementations. Nutrition consult Assessment & Plan (06/02/2021 12:55 PM CLINICAL RESEARCH SPEC): Poor appetite, encourage protein supplementations. Nutrition consult Assessment & Plan (06/01/2021 12:36 PM CLINICAL RESEARCH SPEC): Poor appetite, encourage protein supplementations. Nutrition consult Assessment & Plan (05/31/2021 11:07 AM CLINICAL RESEARCH SPEC): Poor appetite, encourage protein supplementations. Nutrition consult Assessment & Plan (05/30/2021 10:51 AM CLINICAL RESEARCH SPEC): Poor appetite, encourage protein supplementations. Nutrition consult Assessment & Plan (05/29/2021 1:35 PM CLINICAL RESEARCH SPEC): Poor appetite, encourage protein supplementations. Nutrition consult Leg pain, bilateral 05/26/2021 Assessment & Plan (06/07/2021 2:27 PM CLINICAL RESEARCH SPEC): According to the patient, this began with [...] amenable. Assessment & Plan (06/06/2021 2:54 PM CLINICAL RESEARCH SPEC): According to the patient, this began with [...] amenable. Assessment & Plan (06/05/2021 7:17 PM CLINICAL RESEARCH SPEC): According to the patient, this began with [...] DVT Assessment & Plan (06/04/2021 9:49 AM CLINICAL RESEARCH SPEC): According to the patient, this began with [...] DVT Assessment & Plan (06/03/2021 10:29 AM CLINICAL RESEARCH SPEC): According to the patient, this began with [...] DVT Assessment & Plan (06/02/2021 1:01 PM CLINICAL RESEARCH SPEC): According to the patient, this began with [...] DVT Assessment & Plan (06/01/2021 12:38 PM CLINICAL RESEARCH SPEC): According to the patient, this began with [...] DVT Assessment & Plan (05/31/2021 11:07 AM CLINICAL RESEARCH SPEC): According to the patient, this began with [...] DVT Assessment & Plan (05/30/2021 10:50 AM CLINICAL RESEARCH SPEC): According to the patient, this began with [...] DVT Assessment & Plan (05/29/2021 1:33 PM CLINICAL RESEARCH SPEC): According to the patient, this began with [...] DVT Assessment & Plan (05/28/2021 10:52 AM CLINICAL RESEARCH SPEC): According to the patient, this began with [...] sciatica Assessment & Plan (05/27/2021 9:49 AM CLINICAL RESEARCH SPEC): According to the patient, this began with swelling after her recent discharge from the hospital after Medications were changed (diuretics). Tramadol is effective for her. Will start with tramadol 25 mg TID prn. Monitor edema and sxs. Pt walks with walker, PT/OT evaluations Dopplers to r/o DVT s/p COVID Assessment & Plan (05/26/2021 5:26 PM CLINICAL RESEARCH SPEC): According to the patient, this began with swelling after her recent discharge from the hospital after Medications were changed (diuretics). Tramadol is effective for her. Will start with tramadol 25 mg TID prn. Monitor edema and sxs. Pt walks with walker, PT/OT evaluations Pneumonia due to COVID-19 virus 05/10/2021 Assessment & Plan (05/15/2021 2:07 PM CLINICAL RESEARCH SPEC): Symptom onset 05/02/21, positive test 05/09 at OSH (see care everywhere for confirmation) Cont O2, wean as able Cont decadron (d#1=05/10) Remdesivir continued w renal txp's blessing, s/p 5 days VTE ppx with SQ heparin Assessment & Plan (05/14/2021 3:22 PM CLINICAL RESEARCH SPEC): Symptom onset 05/02/21, positive test 05/09 at OSH (see care everywhere for confirmation) Cont O2, wean as able Cont decadron (d#1=05/10) Remdesivir continued w renal txp's blessing, d#5 today VTE ppx with SQ heparin Assessment & Plan (05/13/2021 11:08 AM CLINICAL RESEARCH SPEC): Symptom onset 05/02/21, positive test 05/09 at OSH (see care everywhere for confirmation) Cont O2, wean as able Cont decadron (d#1=05/10) Remdesivir continued w renal txp's blessing, d#4 today VTE ppx with SQ heparin Assessment & Plan (05/12/2021 12:01 PM CLINICAL RESEARCH SPEC): Symptom onset 05/02/21, positive test 05/09 at OSH (see care everywhere for confirmation) Cont O2, wean as able Cont decadron (d#1=05/10) Remdesivir continued w renal txp's blessing, d#3 today VTE ppx with SQ heparin Assessment & Plan (05/11/2021 1:29 PM CLINICAL RESEARCH SPEC): Onset of symptoms ~05/02/21 with worsening dyspnea, fatigue and progressive symptoms prompting presentation. Now on 5L supplemental oxygen. 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 RTO 12m. I will send the results to the portal. If she has not heard in a week, to call the office. Breast swelling 04/04/2021 Assessment & Plan (04/04/2021 3:20 PM CLINICAL RESEARCH SPEC): She is s/p bx. I will look [...] 04/04/2021 Assessment & Plan (04/04/2021 3:20 PM CLINICAL RESEARCH SPEC): The patient was encouraged to stop smoking. Techniques for smoking cessation were discussed to the patient's level of interest. Preoperative testing 11/09/2020 Hydrohepatosis 09/22/2020 Overview (09/22/2020): Added automatically from request for surgery [id number] Hypernatremia 08/05/2020 Assessment & Plan (08/05/2020 11:08 AM CDT): Due to Na bicarb drip ordered for correction of metabolic acidosis. - discontinue bicarb drip - will likely resolve, no need for further testing unless otherwise indicated Hydronephrosis, right 09/21/2019 Overview (09/21/2019): Added automatically from request for surgery [id number] Other proteinuria 05/05/2019 Obstruction of right ureter 02/19/2019 Overview (02/19/2019): Added automatically from request for surgery [id number] Obesity, Class II, BMI 35-39.9 01/29/2019 Assessment & Plan (05/27/2021 9:48 AM CLINICAL RESEARCH SPEC): RD consult while here for diet education Pt has low appetite, not eating much Supplements ordered Assessment & Plan (05/26/2021 5:17 PM CLINICAL RESEARCH SPEC): RD consult while here for diet education Hydronephrosis 12/11/2018 Overview (12/11/2018): Added automatically from request for surgery [id number] Uterine fibroid 12/02/2018 Assessment & Plan (12/05/2018 [...] 11/30/2018 Assessment & Plan (05/28/2021 10:50 AM CLINICAL RESEARCH SPEC): Continue iron supplements Assessment & Plan (05/27/2021 9:47 AM CLINICAL RESEARCH SPEC): Continue iron supplements Assessment & Plan (05/26/2021 5:18 PM CLINICAL RESEARCH SPEC): Continue iron supplements Assessment & Plan (12/05/2018 [...] (11/27/2018): Added automatically from request for surgery [id number] Assessment & Plan (12/31/2023 9:55 AM CDT): [...] electives. Assessment & Plan (06/07/2021 2:28 PM CLINICAL RESEARCH SPEC): History of ureteral obstruction from known fibroid and having ureteral exchanges every 3 months with urology (next scheduled on 06/06). - Urethral stent exchanged 06/05. - Follow up with urology outpatient Assessment & Plan (06/06/2021 2:53 PM CLINICAL RESEARCH SPEC): History of ureteral obstruction from known fibroid and having ureteral exchanges every 3 months with urology (next scheduled on 06/06). - Urethral stent exchanged 06/05. Assessment & Plan (06/05/2021 7:15 PM CLINICAL RESEARCH SPEC): History of ureteral obstruction from known fibroid and having ureteral exchanges every 3 months with urology (next scheduled on 06/06). - Urethral stent exchanged 06/05. Assessment & Plan (06/04/2021 9:47 AM CLINICAL RESEARCH SPEC): History of ureteral obstruction from known fibroid and having ureteral exchanges every 3 months with urology (next scheduled on 06/06). -Discussed with urology here as her exchange is actually scheduled for [facility] on Fri and they are going to try and fit her on the OR schedule here -Will need to be NPO on Friday night Assessment & Plan (06/03/2021 10:28 AM CLINICAL RESEARCH SPEC): History of ureteral obstruction from known fibroid and having ureteral exchanges every 3 months with urology (next scheduled on 06/06). Assessment & Plan (06/02/2021 12:53 PM CLINICAL RESEARCH SPEC): History of ureteral obstruction from known fibroid and having ureteral exchanges every 3 months with urology (next scheduled on 06/06). Assessment & Plan (06/01/2021 12:35 PM CLINICAL RESEARCH SPEC): History of ureteral obstruction from known fibroid and having ureteral exchanges every 3 months with urology (next scheduled on 06/06). Assessment & Plan (05/31/2021 11:06 AM CLINICAL RESEARCH SPEC): History of ureteral obstruction from known fibroid and having ureteral exchanges every 3 months with urology (next scheduled on 06/06). Assessment & Plan (05/30/2021 10:48 AM CLINICAL RESEARCH SPEC): History of ureteral obstruction from known fibroid and having ureteral exchanges every 3 months with urology (next scheduled on 06/06). Assessment & Plan (05/29/2021 1:31 PM CLINICAL RESEARCH SPEC): History of ureteral obstruction from known fibroid and having ureteral exchanges every 3 months with urology (next scheduled on 06/06). Assessment & Plan (05/28/2021 10:50 AM CLINICAL RESEARCH SPEC): ureteral obstruction from known fibroid and having ureteral exchanges every 3 months with urology (next scheduled on 06/06). Assessment & Plan (05/27/2021 9:47 AM CLINICAL RESEARCH SPEC): ureteral obstruction from known fibroid and having ureteral exchanges every 3 months with urology (next scheduled on 06/06). Assessment & Plan (05/26/2021 5:16 PM CLINICAL RESEARCH SPEC): ureteral obstruction from known fibroid and having [...] kidney now s/p ureteral stent by urology 8. Found to have extrinsic compression of ureter of unclear etiology, uterine fibroid in CT scan but gynecology does not think this is the case. - MRI Pelvis W/O contrast - Management of stent per urology. Assessment & Plan (11/30/2018 5:27 PM CDT): Renal U/S at OSH with hydronephrosis of transplanted kidney now s/p ureteral stent by urology 8. Found to have extrinsic compression of ureter of unclear etiology, uterine fibroid in CT scan but gynecology does not think this is the case. - Patient Scheduling Coordinator consulted for uterine fibroid - MRI Pelvis W/O contrast - Management of stent per urology. Assessment & Plan (11/29/2018 12:15 PM CDT): Renal U/S at OSH with hydronephrosis of transplanted kidney now s/p ureteral stent by urology 11/28. Found to have extrinsic compression of ureter from likely uterine fibroid. -Management of stent per urology. -Agree with non-emergent shelver consult for management of fibroids. Hyperlipidemia, unspecified 11/27/2018 Assessment & Plan (03/02/2023 12:01 PM CLINICAL RESEARCH SPEC): Continue patient's home atorvastatin 10 mg daily Hypertension, essential 11/27/2018 Assessment & Plan (05/14/2021 3:24 PM CLINICAL RESEARCH SPEC): Continue home amlodipine, labetalol Assessment & Plan (05/10/2021 1:21 AM CLINICAL RESEARCH SPEC): Continue home amlodipine, labetalol Assessment & Plan [...] 11/27/2018 Assessment & Plan (06/07/2021 2:27 PM CLINICAL RESEARCH SPEC): S/p renal transplant (2007, b/l Cr 2.7-3.4) [...] 06/21. Assessment & Plan (06/06/2021 2:52 PM CLINICAL RESEARCH SPEC): S/p renal transplant (2007, b/l Cr 2.7-3.4) [...] qday Assessment & Plan (06/05/2021 7:09 PM CLINICAL RESEARCH SPEC): S/p renal transplant (2007, b/l Cr 2.7-3.4) [...] monitoring Assessment & Plan (06/04/2021 9:52 AM CLINICAL RESEARCH SPEC): S/p renal transplant (2007, b/l Cr 2.7-3.4) [...] monitoring Assessment & Plan (06/03/2021 10:29 AM CLINICAL RESEARCH SPEC): S/p renal transplant (2007, b/l Cr 2.7-3.4) [...] monitoring Assessment & Plan (06/02/2021 12:55 PM CLINICAL RESEARCH SPEC): S/p renal transplant (2007, b/l Cr 2.7-3.4) [...] monitoring Assessment & Plan (06/01/2021 12:37 PM CLINICAL RESEARCH SPEC): S/p renal transplant (2007, b/l Cr 2.7-3.4) [...] monitoring Assessment & Plan (05/31/2021 8:40 AM CLINICAL RESEARCH SPEC): S/p renal transplant (2007, b/l Cr 2.7-3.4) [...] monitoring. Assessment & Plan (05/30/2021 10:52 AM CLINICAL RESEARCH SPEC): S/p renal transplant (2007, b/l Cr 2.7-3.4) [...] monitoring. Assessment & Plan (05/29/2021 1:36 PM CLINICAL RESEARCH SPEC): S/p renal transplant (2007, b/l Cr 2.7-3.4) [...] monitoring. Assessment & Plan (05/28/2021 10:53 AM CLINICAL RESEARCH SPEC): s/p renal transplant (2007, b/l Cr 2.7-3.4) [...] following/managing Assessment & Plan (05/27/2021 9:46 AM CLINICAL RESEARCH SPEC): s/p renal transplant (2007, b/l Cr 2.7-3.4) [...] following/managing Assessment & Plan (05/26/2021 5:11 PM CLINICAL RESEARCH SPEC): s/p renal transplant (2007, b/l Cr 2.7-3.4) [...] following/managing Assessment & Plan (05/15/2021 2:07 PM CLINICAL RESEARCH SPEC): ESRD 2/2 hypertensive nephrosclerosis s/p renal transplant (2007, b/l Cr 2.7- 3.4) Tacrolimus trough above goal, decreased dose 5mg bid Renal transplant service comanaging (nb home dose 9am/8pm) Home prednisone 5mg daily held while on dexamethasone Has been off myfortic (h/o bk/cmv viremia) Assessment & Plan (05/14/2021 3:22 PM CLINICAL RESEARCH SPEC): ESRD 2/2 hypertensive nephrosclerosis s/p renal transplant (2007, b/l Cr 2.7- 3.4) Tacrolimus trough above goal, decreased dose 5mg bid Renal transplant service comanaging (nb home dose 9am/8pm) Home prednisone 5mg daily held while on dexamethasone Has been off myfortic (h/o bk/cmv viremia) Assessment & Plan (05/13/2021 11:09 AM CLINICAL RESEARCH SPEC): ESRD 2/2 hypertensive nephrosclerosis s/p renal transplant (2007, b/l Cr 2.7- 3.4) Tacrolimus trough above goal, decreased dose 5mg bid Renal transplant service comanaging (nb home dose 9am/8pm) Home prednisone 5mg daily held while on dexamethasone Assessment & Plan (05/12/2021 12:01 PM CLINICAL RESEARCH SPEC): ESRD 2/2 hypertensive nephrosclerosis s/p renal transplant [...] following Assessment & Plan (05/11/2021 1:16 PM CLINICAL RESEARCH SPEC): ESRD 2/2 hypertensive nephrosclerosis s/p renal transplant (2008, b/l Cr 2.7- 3.4) -home tacrolimus 9qAM, [...] (12/05/2018 2:28 PM CDT): Renal transplant at [facility], followed now reportedly by Dr. Rome [...] with information in Care Everywhere from her liquor gallery operator. She has not seen Dr. Ram yet. She has had 3 no shows. 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 Tac goal 4-7 per notes - BMP and tac trough on Friday per Transplant nephrology, [facility] and have faxed to PCP, script provided - Discharge today. I have paged her primary liquor gallery operator office. I have faxed the d/c summary to her PCP as well. Assessment & Plan (12/04/2018 10:32 AM CDT): Renal transplant at [facility], followed now reportedly by Dr. Rome [...] with information in Care Everywhere from her liquor gallery operator. She has not seen Dr. Ram yet. She has had 3 no shows. 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 Tac goal 4-7 per notes - Further mgmt of MARIBELL per nephrology. Assessment & Plan (12/03/2018 10:35 AM CDT): Renal transplant at [facility], followed now reportedly by Dr. Rome Ram although his clinic stated she has not been seen there and has no showed the last 3 clinic appts. - Patient has a second chart - Ronan Moreira with information in Care Everywhere from her liquor gallery operator. She has not seen Dr. Ram yet. [...] (12/02/2018 12:03 PM CDT): Renal transplant at [facility], followed now reportedly by Dr. Rome [...] (12/01/2018 5:23 PM CDT): Renal transplant at [facility], followed now by Dr. Rome Ram. Reported baseline cr 1.3 - Transplant nephrology following, mgmt of immunosuppression per their team - Tac level in AM (low today) - Attempting to obtain records from Dr. Ram Assessment & Plan (11/30/2018 5:38 PM CDT): Renal transplant at [facility], followed now by Dr. Rome Ram. Reported baseline cr 1.3 - Transplant nephrology following, mgmt of immunosuppression per their team Acute on chronic diastolic (congestive) heart fa ilure 11/27/2018 Assessment & Plan (06/07/2021 2:28 PM CLINICAL RESEARCH SPEC): TTE (02/2021) with EF 70%, nl RV/LV size and systolic function and moderate pericardia effusion without collapse (managed conservatively with diuresis). -Repeat TTE with EF 70%, impaired relaxation and stable moderate pericardial effusion -Continue BP control and no signs of volume overload currently Assessment & Plan (06/06/2021 2:57 PM CLINICAL RESEARCH SPEC): TTE (02/2021) with EF 70%, nl RV/LV size and systolic function and moderate pericardia effusion without collapse (managed conservatively with diuresis). -Repeat TTE with EF 70%, impaired relaxation and stable moderate pericardial effusion -Continue BP control and no signs of volume overload currently Assessment & Plan (06/05/2021 7:15 PM CLINICAL RESEARCH SPEC): TTE (02/2021) with EF 70%, nl RV/LV size and systolic function and moderate pericardia effusion without collapse (managed conservatively with diuresis). -Repeat TTE with EF 70%, impaired relaxation and stable moderate pericardial effusion -Continue BP control and no signs of volume overload currently Assessment & Plan (06/04/2021 9:42 AM CLINICAL RESEARCH SPEC): TTE (02/2021) with EF 70%, nl RV/LV size and systolic function and moderate pericardia effusion without collapse (managed conservatively with diuresis). -Repeat TTE with EF 70%, impaired relaxation and stable moderate pericardial effusion -Continue BP control and no signs of volume overload currently Assessment & Plan (06/03/2021 10:27 AM CLINICAL RESEARCH SPEC): TTE (02/2021) with EF 70%, nl RV/LV size and systolic function and moderate pericardia effusion without collapse (managed conservatively with diuresis). -Repeat TTE with EF 70%, impaired relaxation and stable moderate pericardial effusion -Continue BP control and no signs of volume overload currently Assessment & Plan (06/02/2021 12:50 PM CLINICAL RESEARCH SPEC): TTE (02/2021) with EF 70%, nl RV/LV size and systolic function and moderate pericardia effusion without collapse (managed conservatively with diuresis). -Repeat TTE with EF 70%, impaired relaxation and stable moderate pericardial effusion -Continue BP control and no signs of volume overload currently Assessment & Plan (06/01/2021 12:32 PM CLINICAL RESEARCH SPEC): TTE (02/2021) with EF 70%, nl RV/LV size and systolic function and moderate pericardia effusion without collapse (managed conservatively with diuresis). -Repeat TTE with EF 70%, impaired relaxation and stable moderate pericardial effusion -Continue BP control and no signs of volume overload currently Assessment & Plan (05/31/2021 11:04 AM CLINICAL RESEARCH SPEC): TTE (02/2021) with EF 70%, nl RV/LV size and systolic function and moderate pericardia effusion without collapse (managed conservatively with diuresis). -Repeat TTE with EF 70%, impaired relaxation and stable moderate pericardial effusion -Continue BP control and no signs of volume overload currently Assessment & Plan (05/30/2021 10:47 AM CLINICAL RESEARCH SPEC): TTE (02/2021) with EF 70%, nl RV/LV size and systolic function and moderate pericardia effusion without collapse (managed conservatively with diuresis). -Repeat TTE with EF 70%, impaired relaxation and stable moderate pericardial effusion -Continue BP control and no signs of volume overload currently Assessment & Plan (05/29/2021 1:31 PM CLINICAL RESEARCH SPEC): TTE (02/2021) with EF 70%, nl RV/LV size and systolic function and moderate pericardia effusion without collapse (managed conservatively with diuresis). -Repeat TTE with EF 70%, impaired relaxation and stable moderate pericardial effusion -Continue BP control and no signs of volume overload currently Assessment & Plan (05/28/2021 10:49 AM CLINICAL RESEARCH SPEC): TTE (02/2021) with EF 70%, nl RV/LV size and systolic function and moderate pericardia effusion without collapse (managed conservatively with diuresis). Repeat TTE ordered Assessment & Plan (05/27/2021 9:46 AM CLINICAL RESEARCH SPEC): TTE (02/2021) with EF 70%, nl RV/LV size and systolic function and moderate pericardia effusion without collapse (managed conservatively with diuresis). Repeat TTE ordered Assessment & Plan (05/26/2021 5:20 PM CLINICAL RESEARCH SPEC): TTE (02/2021) with EF 70%, nl RV/LV [...] Do not think TTE or HILLARY would price changer at this time but patient would [...] Do not think TTE or HILLARY would price changer at this time but patient would [...] Do not think TTE or HILLARY would price changer at this time but patient would likely benefit from cardiology input as outpatient. NEREYDA on CPAP 11/27/2018 Assessment & Plan (12/30/2023 11:11 PM CDT): Cont CPAP Assessment & Plan (06/07/2021 2:28 PM CLINICAL RESEARCH SPEC): Pt uses home nightly CPAP Assessment & Plan (06/06/2021 2:58 PM CLINICAL RESEARCH SPEC): Pt uses home nightly CPAP Assessment & Plan (06/05/2021 7:15 PM CLINICAL RESEARCH SPEC): Pt uses home nightly CPAP Assessment & Plan (06/04/2021 9:49 AM CLINICAL RESEARCH SPEC): Pt uses home nightly CPAP Assessment & Plan (06/03/2021 10:29 AM CLINICAL RESEARCH SPEC): Pt uses home nightly CPAP Assessment & Plan (06/02/2021 12:54 PM CLINICAL RESEARCH SPEC): Pt uses home nightly CPAP Assessment & Plan (06/01/2021 12:36 PM CLINICAL RESEARCH SPEC): Pt uses home nightly CPAP Assessment & Plan (05/31/2021 11:07 AM CLINICAL RESEARCH SPEC): Pt uses home nightly CPAP Assessment & Plan (05/30/2021 10:50 AM CLINICAL RESEARCH SPEC): Pt uses home nightly CPAP Assessment & Plan (05/29/2021 1:34 PM CLINICAL RESEARCH SPEC): Pt uses home nightly CPAP Assessment & Plan (05/28/2021 10:50 AM CLINICAL RESEARCH SPEC): Pt uses home CPAP Assessment & Plan (05/27/2021 9:47 AM CLINICAL RESEARCH SPEC): Pt uses home CPAP Assessment & Plan (05/26/2021 5:15 PM CLINICAL RESEARCH SPEC): Pt uses home CPAP Assessment & Plan [...] HD Assessment & Plan (03/02/2023 11:59 AM CLINICAL RESEARCH SPEC): No signs of exacerbation. Last TTE done [...] ETOH. Assessment & Plan (05/15/2021 2:07 PM CLINICAL RESEARCH SPEC): Recent admission for pericardial effusion and volume overload. TTE with large pericardial effusion was seen by cardiology and thoracic surgery with plan for conservative management and diuresis Have not directly reimaged pericardial effusion thus far during admission Currently HDS, continue anti-hypertensives Holding Lasix as above Assessment & Plan (05/14/2021 3:23 PM CLINICAL RESEARCH SPEC): Recent admission for pericardial effusion and volume overload. TTE with large pericardial effusion was seen by cardiology and thoracic surgery with plan for conservative management and diuresis Have not directly reimaged pericardial effusion thus far during admission Currently HDS, continue anti-hypertensives Holding Lasix as above Assessment & Plan (05/13/2021 11:09 AM CLINICAL RESEARCH SPEC): Recent admission for pericardial effusion and volume overload. TTE with large pericardial effusion was seen by cardiology and thoracic surgery with plan for conservative management and diuresis -currently HDS, continue anti-hypertensives -holding diuretics as elsewhere Assessment & Plan (05/12/2021 12:01 PM CLINICAL RESEARCH SPEC): Recent admission for pericardial effusion and volume overload. TTE with large pericardial effusion was seen by cardiology and thoracic surgery with plan for conservative management and diuresis -currently HDS, continue anti-hypertensives -holding diuretics as elsewhere Assessment & Plan (05/11/2021 1:14 PM CLINICAL RESEARCH SPEC): Recent admission for pericardial effusion and volume [...] PM CDT): Patient's s/p DDKT at the [facility] in 2007. Of note patient has also been followed at [place], but most recently continues to follow her care at [facility] since 2016. -Cr somewhat improved with thomas catheter placement. Urology c/s; per their recommendations, d/c and attempt void trial. -Patient diuresed with 40 Lasix d/t volume overload, SOB; UOP 3.6L -BK pending, CMV and HLA negative -Thought to be d/t new diagnosis of heart failure Assessment & Plan (10/26/2018 6:35 PM CDT): Patient's s/p DDKT at the [facility] in 2007. Of note patient has also been followed at [place], but most recently continues to follow her care at [facility] since 2016. -Patient recently admitted in 08/2018 d/t MARIBELL, baseline Cr was 1.2-1.4 until 06/2018 where it has been found to be 2.2-2.8. She was evaluated by urology who recommended IR c/s; and the patient left the hospital AMA -She re-presents to [facility] 10/25 with MARIBELL, BLE edema, and [...] 10/25/2018 Assessment & Plan (03/02/2023 11:59 AM CLINICAL RESEARCH SPEC): Likely secondary to ESRD. Continue as planned under the ESRD - continue IV iron supplements q 2 weeks. - EPO 43647 units IV t.i.d. Friday on days not getting hemodialysis - CBC daily Assessment & Plan (06/07/2021 2:27 PM CLINICAL RESEARCH SPEC): Hgb on admission related to anemia of [...] bleed Assessment & Plan (06/05/2021 7:09 PM CLINICAL RESEARCH SPEC): Hgb on admission related to anemia of [...] bleed Assessment & Plan (06/04/2021 9:42 AM CLINICAL RESEARCH SPEC): Hgb on admission related to anemia of [...] bleed Assessment & Plan (06/03/2021 10:27 AM CLINICAL RESEARCH SPEC): Hgb on admission related to anemia of [...] bleed Assessment & Plan (06/02/2021 12:50 PM CLINICAL RESEARCH SPEC): Hgb on admission related to anemia of [...] bleed Assessment & Plan (06/01/2021 12:32 PM CLINICAL RESEARCH SPEC): Hgb on admission related to anemia of [...] bleed Assessment & Plan (05/31/2021 11:04 AM CLINICAL RESEARCH SPEC): Hgb on admission related to anemia of [...] AM Assessment & Plan (05/30/2021 10:45 AM CLINICAL RESEARCH SPEC): Hgb on admission related to anemia of CKD as well as component of HERNANDEZ. Baseline Hgb ~8 - Hgb matteo of 6.3 and s/p 1 unit PRBCs with improvement to ~7 since - Continue iron supplements - No signs/symptoms of bleeding, continue to monitor & transfuse Hgb <7 - Repeat iron panel/ferritin with AM labs Assessment & Plan (05/29/2021 1:29 PM CLINICAL RESEARCH SPEC): Hgb on admission related to anemia of CKD as well as component of HERNANDEZ. Baseline Hgb ~8 - Hgb matteo of 6.3 and s/p 1 unit PRBCs with improvement to ~7 since - Continue iron supplements - No signs/symptoms of bleeding, continue to monitor & transfuse Hgb <7 Assessment & Plan (05/28/2021 10:50 AM CLINICAL RESEARCH SPEC): S/p 1 unit pRBCs 05/26 Recent Labs Lab Units 05/28/21 0519 05/27/21 0433 05/26/21 1308 HEMOGLOBIN g/dL 7.7* 7.7* 7.7* Transfuse prn to keep Hgb>7 Anemia of chronic disease Hgb on admission related to anemia of CKD as well as component of HERNANDEZ. -continue iron supplements Assessment & Plan (05/27/2021 9:47 AM CLINICAL RESEARCH SPEC): S/p 1 unit pRBCs 05/26 Recent Labs Lab Units 05/27/21 0433 05/26/21 1308 05/26/21 0415 HEMOGLOBIN g/dL 7.7* 7.7* 6.3* Transfuse prn to keep Hgb>7 Anemia of chronic disease Hgb on admission related to anemia of CKD as well as component of HERNANDEZ. -continue iron supplements Assessment & Plan (05/26/2021 5:15 PM CLINICAL RESEARCH SPEC): S/p 1 unit pRBCs 05/26 Recent Labs Lab Units 05/26/21 1308 05/26/21 0415 HEMOGLOBIN g/dL 7.7* 6.3* Transfuse prn to keep Hgb>7 Anemia of chronic disease Hgb on admission related to anemia of CKD as well as component of HERNANDEZ. -continue iron supplements Assessment & Plan (05/14/2021 3:24 PM CLINICAL RESEARCH SPEC): Hgb 9.2. Baseline ~8-9 related to anemia of CKD as well as component of HERNANDEZ. -continue iron supplements Assessment & Plan (05/10/2021 1:19 AM CLINICAL RESEARCH SPEC): Hgb 9.2. 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 Plan [...] 11:39 AM CDT): -s/p DDKT 2007 at [facility] -Immunosuppression: cont tacrolimus 7mg QAM/6mg QPM, prednisone 5. She states she has not been on CellCept or Myfortic since 2007 or 2008. - Renal transplant in agreement with d/c today - Tac trough adequate Assessment & Plan (10/27/2018 4:48 PM CDT): -s/p DDKT 2007 at [facility] -Immunosuppression: cont tacrolimus 7mg QAM/6mg QPM, prednisone 5. She states she has not been on CellCept or Myfortic since 2007 or 2008. - Check tac trough - Followed by renal transplant service Assessment & Plan (10/26/2018 2:45 PM CDT): -s/p DDKT 2007 at [facility] -Immunosuppression: cont tacrolimus 7mg QAM/6mg QPM, prednisone 5. She states she has not been on CellCept or Myfortic since 2007 or 2008. - Check tac trough - Followed by renal transplant service Assessment & Plan (10/25/2018 3:31 AM CDT): -s/p DDKT 2007 at [facility] -Immunosuppression: cont tacrolimus 7mg QAM/6mg QPM, [...] 04/21/2023 Assessment & Plan (03/02/2023 11:58 AM CLINICAL RESEARCH SPEC): Pt was not able to get HD 03/01/23 due to verbal altercation at HD center. She presented to [facility] for urgent HD which she tolerated. SW on consult to help find additional facility. Per EMR Hx of Kidney transplant for ESRD in the setting of HTN 2009 preformed at [facility]. Her transplant unfortunately failed due to [...] being evaluated for additional kidney transplant at [facility]. Left radiocephalic AV fistula, per vascular team Fistula duplex needed in future and will probably warrant fistulogram. - Continue EPO, calcitriol, folic acid, IV iron q2 weeks, - HD today per nephrology, Friday and Friday - KRISHNA Consult to help with alternative HD arrangement, Pt would like to be seen at [facility]. - Continue tacrolimus with trough levels as needed, Prednisone 5mg daily. - Lokelma as needed for HyperK - Daily CBC, CMP, mag, phos - Kidney Imaging as needed. - Avoid nephrotoxic drugs - Nephrology following appreciate recs. - Follow up with transplant team at [facility] on discharge for continued workup for kidney transplant. Constipation 05/31/2021 03/03/2023 Assessment & Plan (03/02/2023 12:00 PM CLINICAL RESEARCH SPEC): Patient reports chronic constipation and has not have a bowel movement since Friday. Abdominal x-ray showed mild to moderate amount of stool in colon and no obstructive bowel pattern noted. Patient has allergy to MiraLax and Dulcolax base which cause muscle pain. - s/p x2 lactulose will continue as needed to help with BM. - Dulcolax daily Assessment & Plan (06/01/2021 12:32 PM CLINICAL RESEARCH SPEC): Now resolved, will discontinue lactulose and continue PRN meds Assessment & Plan (05/31/2021 11:05 AM CLINICAL RESEARCH SPEC): Reports no bowel movement since 05/27 -Will start lactulose BID today (miralax allergy) and continue scheduled docusate-senna -If no BM by this evening then can use PRN suppository that's ordered History of COVID-19 05/29/2021 06/05/19 Assessment & Plan (06/04/2021 9:42 AM CLINICAL RESEARCH SPEC): Positive on 05/10/21 during prior admission and briefly required O2 at that time, but was weaned off prior to discharge. S/p remdesivir and dexamethasone during that admit. Stable on room air this admission and now COVID recovered Assessment & Plan (06/03/2021 10:28 AM CLINICAL RESEARCH SPEC): Positive on 05/10/21 during prior admission and briefly required O2 at that time, but was weaned off prior to discharge. S/p remdesivir and dexamethasone during that admit. Stable on room air this admission and now COVID recovered Assessment & Plan (06/02/2021 1:01 PM CLINICAL RESEARCH SPEC): Positive on 05/10/21 during prior admission and briefly required O2 at that time, but was weaned off prior to discharge. S/p remdesivir and dexamethasone during that admit -Stable on room air this admission and now COVID recovered Assessment & Plan (06/01/2021 12:35 PM CLINICAL RESEARCH SPEC): -Positive on 05/10/21 during prior admission and [...] today Assessment & Plan (05/31/2021 11:06 AM CLINICAL RESEARCH SPEC): -Positive on 05/10/21 during prior admission and [...] now Assessment & Plan (05/30/2021 10:48 AM CLINICAL RESEARCH SPEC): -Positive on 05/10/21 during prior admission and [...] 3 Assessment & Plan (05/31/2021 11:02 AM CLINICAL RESEARCH SPEC): Now resolved, secondary to MARIBELL on CKD, K of 7.9 w/ EKG changes on admit - S/p iHD overnight and has been off JUVEN[employer]ER since 05/26 and making good urine - K continues to remain normal - Lokelma has been discontinued Assessment & Plan (05/30/2021 10:43 AM CLINICAL RESEARCH SPEC): Now resolved, secondary to MARIBELL on CKD, K of 7.9 w/ EKG changes on admit - S/p iHD overnight and has been off JUVENILE OFFICER since 05/26 and making good urine - K continues to remain normal - Lokelma was discontinued Assessment & Plan (05/29/2021 1:22 PM CLINICAL RESEARCH SPEC): Secondary to MARIBELL on CKD, K of 7.9 w/ EKG changes in am at OSH. S/p temporization prior to transfer - S/p iHD overnight and has been off JUVENILE OFFICER since 05/26 and making good urine - K normal at 4.6, Lokelma has been held - Will monitor closely for iHD needs. Assessment & Plan (05/28/2021 10:51 AM CLINICAL RESEARCH SPEC): - Noted 7.9 w/ EKG changes in am at OSH. - S/p medical temporization with 6.9 upon d/c from OSH to [facility]. - K now down to 5.8 s/p temporization but overnight went upto 6.8. - S/p iHD overnight - Will monitor closely for iHD needs. - Monitor closely. Assessment & Plan (05/27/2021 9:49 AM CLINICAL RESEARCH SPEC): - Noted 7.9 w/ EKG changes in am at OSH. - S/p medical temporization with 6.9 upon d/c from OSH to [facility]. - K now down to 5.8 s/p temporization but overnight went upto 6.8. - S/p iHD overnight - Will monitor closely for iHD needs. - Monitor closely. Assessment & Plan (05/26/2021 5:07 PM CLINICAL RESEARCH SPEC): - Noted 7.9 w/ EKG changes in am at OSH. - S/p medical temporization with 6.9 upon d/c from OSH to [facility]. - K now down to 5.8 s/p temporization but overnight went upto 6.8. - S/p iHD overnight. - Will monitor closely for iHD needs. - Monitor closely. Renal lesion 05/12/2021 06/03/2021 Assessment & Plan (06/02/2021 12:57 PM CLINICAL RESEARCH SPEC): Admission UA was negative for infection and [...] drainage/sampling Assessment & Plan (05/30/2021 10:51 AM CLINICAL RESEARCH SPEC): Per sign-out, patient does not have complicated [...] UA Assessment & Plan (05/29/2021 1:34 PM CLINICAL RESEARCH SPEC): Per sign-out, patient does not have complicated UTI symptoms or evidence of infection on UA. However, Renal Transplant with duplex 05/25 showed no NENITA but new mild hydro and focal heterogenous echogenic area concerning for developing abscess. Pt had no sxs of dysuria; renal tx team has low suspicion for UTI Urine is clear/light 05/27 Assessment & Plan (05/28/2021 10:49 AM CLINICAL RESEARCH SPEC): Per sign-out, patient does not have complicated UTI symptoms or evidence of infection on UA. However, Renal Transplant with duplex 05/25 showed no NENITA but new mild hydro and focal heterogenous echogenic area concerning for developing abscess. Pt had no sxs of dysuria; renal tx team has low suspicion for UTI Urine is clear/light 05/27 Assessment & Plan (05/27/2021 9:47 AM CLINICAL RESEARCH SPEC): Per sign-out, patient does not have complicated UTI symptoms or evidence of infection on UA. However, Renal Transplant with duplex 05/25 showed no NENITA but new mild hydro and focal heterogenous echogenic area concerning for developing abscess. Pt had no sxs of dysuria; renal tx team has low suspicion for UTI Urine is clear/light 05/27 Assessment & Plan (05/26/2021 5:23 PM CLINICAL RESEARCH SPEC): Per sign-out, patient does not have complicated UTI symptoms or evidence of infection on UA. However, Renal Transplant with duplex 05/25 showed no NENITA but new mild hydro and focal heterogenous echogenic area concerning for developing abscess. No Urine culture found this admission. Will order. Assessment & Plan (05/14/2021 3:22 PM CLINICAL RESEARCH SPEC): Pyuria at osh, no culture data available S/p empiric rx with ceftriaxone out of abundance of caution, finished Assessment & Plan (05/13/2021 11:09 AM CLINICAL RESEARCH SPEC): Pyuria at osh, no culture data available On empiric rx with ceftriaxone Culture here no growth but has been on abx Plan to finish course of therapy, abx d#4 today Assessment & Plan (05/12/2021 12:04 PM CLINICAL RESEARCH SPEC): Pyuria at osh, no culture data available On empiric rx with ceftriaxone Culture here no growth but has been on abx Plan to finish course of therapy, abx d#3 today Pericardial effusion 02/28/2021 022 Assessment & Plan (06/04/2021 9:50 AM CLINICAL RESEARCH SPEC): TTE (02/2021) with EF 70%, nl RV/LV [...] compromise Assessment & Plan (06/01/2021 12:36 PM CLINICAL RESEARCH SPEC): TTE (02/2021) with EF 70%, nl RV/LV [...] compromise Assessment & Plan (05/31/2021 11:07 AM CLINICAL RESEARCH SPEC): TTE (02/2021) with EF 70%, nl RV/LV [...] compromise Assessment & Plan (05/30/2021 10:51 AM CLINICAL RESEARCH SPEC): TTE (02/2021) with EF 70%, nl RV/LV [...] compromise Assessment & Plan (05/29/2021 1:37 PM CLINICAL RESEARCH SPEC): TTE (02/2021) with EF 70%, nl RV/LV [...] compromise Assessment & Plan (05/28/2021 10:49 AM CLINICAL RESEARCH SPEC): TTE (02/2021) with EF 70%, nl RV/LV [...] ordered Assessment & Plan (05/27/2021 9:48 AM CLINICAL RESEARCH SPEC): TTE (02/2021) with EF 70%, nl RV/LV [...] ordered Assessment & Plan (05/26/2021 5:19 PM CLINICAL RESEARCH SPEC): TTE (02/2021) with EF 70%, nl RV/LV [...] injury superimp osed on chronic kidney disease ([facility]/HCC) 10/25/2018 06/07/2021 Assessment & Plan (06/07/2021 2:26 PM CLINICAL RESEARCH SPEC): History of ESRD 2/2 hypertensive nephrosclerosis s/p [...] downtrend Assessment & Plan (06/06/2021 2:51 PM CLINICAL RESEARCH SPEC): History of ESRD 2/2 hypertensive nephrosclerosis s/p [...] baseline Assessment & Plan (06/05/2021 7:08 PM CLINICAL RESEARCH SPEC): History of ESRD 2/2 hypertensive nephrosclerosis s/p [...] baseline Assessment & Plan (06/04/2021 9:42 AM CLINICAL RESEARCH SPEC): History of ESRD 2/2 hypertensive nephrosclerosis s/p [...] baseline Assessment & Plan (06/03/2021 10:26 AM CLINICAL RESEARCH SPEC): History of ESRD 2/2 hypertensive nephrosclerosis s/p [...] baseline Assessment & Plan (06/02/2021 1:00 PM CLINICAL RESEARCH SPEC): History of ESRD 2/2 hypertensive nephrosclerosis s/p [...] now Assessment & Plan (06/01/2021 12:30 PM CLINICAL RESEARCH SPEC): History of ESRD 2/2 hypertensive nephrosclerosis s/p [...] today Assessment & Plan (05/31/2021 11:03 AM CLINICAL RESEARCH SPEC): History of ESRD 2/2 hypertensive nephrosclerosis s/p [...] BMP Assessment & Plan (05/30/2021 10:44 AM CLINICAL RESEARCH SPEC): History of ESRD 2/2 hypertensive nephrosclerosis s/p [...] yesterday Assessment & Plan (05/29/2021 1:27 PM CLINICAL RESEARCH SPEC): History of ESRD 2/2 hypertensive nephrosclerosis s/p [...] yesterday Assessment & Plan (05/28/2021 10:48 AM CLINICAL RESEARCH SPEC): 65F with history of ESRD 2/2 hypertensive nephrosclerosis s/p renal transplant (2007, b/l Cr 2.7-3.4), anemia of CKD, NEREYDA on CPAP, HFpEF transferred from OSH to [facility] for acute kidney failure and hyperkalemia. [...] 2.62* Assessment & Plan (05/27/2021 9:45 AM CLINICAL RESEARCH SPEC): 65F with history of ESRD 2/2 hypertensive nephrosclerosis s/p renal transplant (2007, b/l Cr 2.7-3.4), anemia of CKD, NEREYDA on CPAP, HFpEF transferred from OSH to [facility] for acute kidney failure and hyperkalemia. [...] pending. Assessment & Plan (05/26/2021 5:06 PM CLINICAL RESEARCH SPEC): 65F with history of ESRD 2/2 hypertensive nephrosclerosis s/p renal transplant (2007, b/l Cr 2.7-3.4), anemia of CKD, NEREYDA on CPAP, HFpEF transferred from OSH to [facility] for acute kidney failure and hyperkalemia. [...] pending. Assessment & Plan (05/15/2021 2:07 PM CLINICAL RESEARCH SPEC): Admit creatinine 6.1, baseline 2.7-3.4 in recent [...] dosing Assessment & Plan (05/14/2021 3:21 PM CLINICAL RESEARCH SPEC): Admit creatinine 6.1, baseline 2.7-3.4 in recent [...] dosing Assessment & Plan (05/13/2021 11:07 AM CLINICAL RESEARCH SPEC): Admit creatinine 6.1, baseline 2.7-3.4 in recent [...] tacro Assessment & Plan (05/12/2021 11:57 AM CLINICAL RESEARCH SPEC): Admit creatinine 6.1, baseline 2.7-3.4 in recent months Noted 6-7 days poor intake prior to arrival Some improvement thus far w fluids Still poor intake CMV neg Metabolic acidosis worsening in spite of oral bicarb Plan small fluids/bicarb infusion today, cont oral bicarb Monitor response w repeat BMP in AM Assessment & Plan (05/11/2021 1:29 PM CLINICAL RESEARCH SPEC): Baseline Cr 2.7-3.4. On admission at OSH [...] to 2.8 since June 2018. Ultrasound at [facility] on 08/26 showed severe hydronephrosis of [...] 04/21/2023 Assessment & Plan (03/02/2023 11:58 AM CLINICAL RESEARCH SPEC): Blood pressure is controlled - continue amlodipine 10 mg daily, labetalol 200 mg t.i.d., Lasix 40 mg b.i.d.. Assessment & Plan (06/07/2021 2:27 PM CLINICAL RESEARCH SPEC): - Continue home amlodipine & labetalol Assessment & Plan (06/06/2021 2:53 PM CLINICAL RESEARCH SPEC): - Continue home amlodipine & labetalol Assessment & Plan (06/05/2021 7:09 PM CLINICAL RESEARCH SPEC): - Continue home amlodipine & labetalol Assessment & Plan (06/04/2021 9:48 AM CLINICAL RESEARCH SPEC): Restarted home Amlodipine & Labetalol, blood pressure within goal Assessment & Plan (06/03/2021 10:28 AM CLINICAL RESEARCH SPEC): Restarted home Amlodipine & Labetalol, blood pressure within goal Assessment & Plan (06/02/2021 12:53 PM CLINICAL RESEARCH SPEC): Improving BP -Restarted home Amlodipine & Labetalol Assessment & Plan (06/01/2021 12:35 PM CLINICAL RESEARCH SPEC): Improving BP -Restarted home Amlodipine & Labetalol Assessment & Plan (05/31/2021 11:06 AM CLINICAL RESEARCH SPEC): Improving BP -Restarted home Amlodipine yesterday and will resume home Labetalol today Assessment & Plan (05/30/2021 10:49 AM CLINICAL RESEARCH SPEC): Currently BP at goal and has improved -Will restart home Amlodipine 10 mg qday today and continue to hold Labetolol for now Assessment & Plan (05/29/2021 1:32 PM CLINICAL RESEARCH SPEC): Currently BP at goal -Labetolol and amlodipine both on hold due to softer pressures on admit, resume as tolerated Assessment & Plan (05/28/2021 10:50 AM CLINICAL RESEARCH SPEC): Currently, BP near goal Labetolol and amlodipine both on hold monitor and titrate meds. BP at goal 05/27, 05/28 Assessment & Plan (05/27/2021 9:47 AM CLINICAL RESEARCH SPEC): Currently, BP near goal Labetolol and amlodipine both on hold monitor and titrate meds. BP at goal 05/27 Assessment & Plan (05/26/2021 5:13 PM CLINICAL RESEARCH SPEC): Currently, BP near goal Labetolol and amlodipine [...] 04/21/2023 Assessment & Plan (03/02/2023 12:00 PM CLINICAL RESEARCH SPEC): Will continue home CPAP. Assessment & Plan (05/14/2021 3:23 PM CLINICAL RESEARCH SPEC): Continue home CPAP (though has been using O2 instead) Assessment & Plan (05/10/2021 1:21 AM CLINICAL RESEARCH SPEC): Continue home CPAP Assessment & Plan (10/26/2018 [...] has been uptrending recently - 1.7 in [place] and 2 in June ( see below [...] diabetes mellitus without complication 09/06/19 18 10/18/2022 Immunizations Immunization Administration Dates Next Due [...] drink = 0.6 oz pur e alcohol) [facility] Utilities Answer Date Recorded In the past 12 months has e electric, gas, oil, or water company [...] declined 01/01/2024 How often do you attend temple or gnosticism serv ices? Patient declined 01/01/2024 Do you belong to any clubs o r organizations such as temple groups, unions, fraternal or athletic groups, or [...] place to sleep or slept in a fci (including now)? No 04/23/2023 Housing Stability Vital [...] any time in the past 12 m [facility], were you homeless or living in a fci (including now)? Patient declined 01/01/2024 Personal Safety [...] 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, GUITAR REPAIRER, ENRRIQUE) 03/03/2023 Comments No Sex and Gender Information Value Date Recorded Sex Assigned at Not on file Legal Sex Female 1:10 PM CLINICAL RESEARCH SPEC Gender Identity Not on file Sexual Orientation [...] 87.1 kg (192 lb) 05/05/2024 3:16 PM CLINICAL RESEARCH SPEC Height 162.6 cm (5' 4 ) 05/05/2024 3:16 PM CLINICAL RESEARCH SPEC Body Mass Index 32.96 05/05/2024 3:16 PM CLINICAL RESEARCH SPEC Plan of Treatment Not on file Medical Devices Implanted Type Area Calibration Tester Device Identifier Shelf Expiration Date Model / Serial / Lot [employer] Universa 6fr 24cm Radiopaque Graduate Firm Monofilament Tether [id number] - Sn/A - [id number] Implanted:Qty: 1 on 05/08/2022 by Timi Hernandez MD at [facility] Stent Right: Ureter [employer] 02/15/2025 [id number] / N/A / [id number] [employer] Universa 6fr 24cm Radiopaque Graduate Firm Monofilament Tether [id number] - [id number] Implanted:Qty: 1 on 08/14/2022 by Timi Hernandez MD at [facility] Stent Right: Ureter [employer] 12/19/2024 [id number] / / [id number] [employer] Stent Ureteral Set Double Pigtail Radiopaque Tip Universa 7ryr70ss Polyurethane Hydrophilic Coated [id number] - [id number] Implanted:Qty: 1 on 09/03/2023 at [facility] Right: Ureter [employer] 10/16/2025 [id number] / / [id number] [employer] Stent Ureteral Set Double Pigtail Radiopaque Tip Universa 1ssu99xo Polyurethane Hydrophilic Coated F91543 - [id number] Implanted:Qty: 1 on 01/21/2024 at [facility] Right: Ureter [employer] 07/02/2024 [id number] / / [id number] Explanted Type Area Calibration Tester Device Identifier Shelf Expiration Date Model / Serial / Lot [employer] Maddi [id number] 4.8fr 14cm Taper Tip Bladder Raoul Low Profile Large Inner Lumen Latex Free - [id number] Implanted:Qty: 1 on 11/28/2018 by Timi Hernandez MD at [facility] Explanted:Qty: 1 on 02/08/2019 by Ricardo Pineda MD at [facility] Stent N/A: Ureter [employer] Maddi [id number] 07/15/2019 [id number] / / [id number] Description:Transplant kidne y ureter; stent intact [employer] Maddi [id number] 4.8fr 14cm Taper Tip Bladder Raoul Low Profile Large Inner Lumen Latex Free - [id number] - [id number] Implanted:Qty: 1 on 02/08/2019 by Ricardo Pineda MD at [facility] Explanted:Qty: 1 on 05/03/2019 by Blaire Miller MD at [facility] Stent Right: Ureter [employer] 06/18/2020 [id number] / [id number] / [employer] Maddi [id number] 4.8fr 14cm Taper Tip Bladder Raoul Low Profile Large Inner Lumen Latex Free - [id number] Implanted:Qty: 1 on 05/03/2019 by Blaire Miller MD at [facility] Explanted:Qty: 1 on 09/13/2019 by Timi Hernandez MD at [facility] Stent Ureter [employer] Maddi [id number] 08/09/2021 [id number] / / [id number] [employer] [id number] Inlay Downing 4.7fr 14cm Pusher Fluoro Marker Atraumatic Insertion Latex Free - [id number] Implanted:Qty: 1 on 03/08/2020 by Timi Hernandez MD at [facility] Explanted:Qty: 1 on 01/31/2021 by Timi Hernandez MD at [facility] Stent Right: Ureter [employer] 11/27/2021 [id number] / / [id number] [employer] [id number] Set Stent 14cm 4.7fr [place] Mandril Small 2 Pigtail Curve - [id number] - [id number] Implanted:Qty: 1 on 08/23/2020 by Timi Hernandez MD at [facility] Explanted:Qty: 1 on 01/31/2021 by Timi Hernandez MD at [facility] Stent Right: Ureter [employer] 05/23/2023 [id number] / [id number] / [id number] [employer] [id number] Set Stent 14cm 4.7fr [place] Mandril Small 2 Pigtail Curve - [id number] Implanted:Qty: 1 on 11/15/2020 by Timi Hernandez MD at [facility] Explanted:Qty: 1 on 01/31/2021 by Timi Hernandez MD at [facility] Stent Right: Ureter [employer] 09/20/2023 [id number] / / [id number] [employer] [id number] Inlay Downing 6fr 24cm Pusher Fluoro Marker Atraumatic Insertion Latex Free - [id number] Implanted:Qty: 1 on 06/05/2021 by Gary Urban MD at [facility] Explanted:Qty: 1 on 11/14/2021 by Timi Hernandez MD at [facility] Stent Right: Ureter [employer] [id number] 10/24/2025 [id number] / / [id number] [employer] Universa 6fr 24cm Radiopaque Graduate Firm Monofilament Tether [id number] - [id number] Implanted:Qty: 1 on 11/14/2021 by Timi Hernandez MD at [facility] Explanted:Qty: 1 on 02/13/2022 at [facility] Stent Right: Ureter [employer] 07/19/2024 [id number] / / [id number] [employer] Universa 6fr 24cm Radiopaque Graduate Firm Monof[employer] Tether [id number] - [id number] Implanted:Qty: 1 on 02/13/2022 by Timi Hernandez MD at [facility] Explanted:Qty: 1 on 05/08/2022 by Timi Hernandez MD at [facility] Stent [employer] 10/08/2024 [id number] / / [id number] [employer] Universa 6fr 20cm Radiopaque Positioner Monofilament Tether 2 [id number] - [id number] - [id number] Implanted:Qty: 1 on 11/06/2022 by Timi Hernandez MD at [facility] Explanted:Qty: 1 on 03/17/2023 by Carson Gatica DO at [facility] Stent Right: Ureter [employer] 02/18/2025 [id number] / [id number] / [id number] [employer] Universa 6fr 20cm Radiopaque Positioner Monofilament Tether 2 [id number] - Sn/A - [id number] Implanted:Qty: 1 on 06/04/2023 by Timi Hernandez MD at [facility] Explanted:Qty: 1 on 01/21/2024 by Neel Rodriguez MD at [facility] Stent Right: Ureter [employer] 07/02/2024 [id number] / N/A / [id number] Description:Implant pause co mpleted prior to opening implant on sterile field [employer] Maddi [id number] 4.8fr 16cm Taper Tip Bladder Raoul Low Profile Large Inner Lumen Latex Free - [id number] Implanted:Qty: 1 on 09/13/2019 by Timi Hernandez MD at [facility] Explanted:Qty: 1 on 03/08/2020 at [facility] Right: Ureter [employer] 09/28/2020 [id number] / / [employer] [id number] Inlay Downing 4.7fr 14cm Pusher Fluoro Marker Atraumatic Insertion Latex Free - [id number] Implanted:Qty: 1 on 12/08/2019 by Timi Hernandez MD at [facility] Explanted:Qty: 1 on 06/07/2020 by Timi Hernandez MD at [facility] Right: Ureter [employer] 11/27/2021 [id number] / / [id number] [employer] [id number] Inlay Downing 4.7fr 14cm Pusher Fluoro Marker Atraumatic Insertion Latex Free - [id number] Implanted:Qty: 1 on 06/07/2020 by Timi Hernandez MD at [facility] Explanted:Qty: 1 on 01/31/2021 by Timi Hernandez MD at [facility] Right: Ureter [employer] 11/27/2021 [id number] / / [id number] [employer] [id number] Set Stent 14cm 4.7fr [place] Mandril Small 2 Pigtail Curve - [id number] Implanted:Qty: 1 on 01/31/2021 by Timi eHrnandez MD at [facility] Explanted:Qty: 1 on 06/05/2021 by Gary Urban MD at [facility] Urethra [employer] [id number] 07/15/2022 [id number] / / [id number] Description:Intact and compl ete [employer] Universa 6fr 20cm Radiopaque Positioner Monofilament Tether 2 [id number] - [id number] Implanted:Qty: 1 on 03/17/2023 by Carson Gatica DO at [facility] Explanted:Qty: 1 on 06/04/2023 by Timi Hernandez MD at [facility] Right: Ureter [employer] [id number] 10/24/2025 [id number] / / [id number] Procedures Procedure Name Priority Date/Time Associated Diagnosis [...] HIGHLY SENSITIVE, LC/MS/MS Routine 06/15/2024 10:01 AM CLINICAL RESEARCH SPEC PROTEIN / CREATININE RATIO, URINE, RANDOM Routine 06/15/2024 10:01 AM CLINICAL RESEARCH SPEC RENAL FUNCTION PANEL Routine 06/15/2024 10:01 AM CLINICAL RESEARCH SPEC CBC WITH AUTO DIFFERENTIAL Routine 06/15/2024 10:01 AM CLINICAL RESEARCH SPEC COPY(IES) SENT TO: Routine 06/15/2024 10:01 AM CLINICAL RESEARCH SPEC BK VIRUS, DNA, QUANTITATIVE Routine 06/15/2024 10:01 AM CLINICAL RESEARCH SPEC CYTOMEGALOVIRUS (CMV) DNA, QUANT GEN LAB Routine 06/15/2024 10:01 AM CLINICAL RESEARCH SPEC PROTEIN / CREATININE RATIO, URINE, RANDOM Routine 05/11/2024 8:55 AM CLINICAL RESEARCH SPEC RENAL FUNCTION PANEL Routine 05/11/2024 8:55 AM CLINICAL RESEARCH SPEC TACROLIMUS, HIGHLY SENSITIVE, LC/MS/MS Routine 05/11/2024 8:55 AM CLINICAL RESEARCH SPEC CBC WITH AUTO DIFFERENTIAL Routine 05/11/2024 8:55 AM CLINICAL RESEARCH SPEC COPY(IES) SENT TO: Routine 05/11/2024 8: 55 AM CLINICAL RESEARCH SPEC CYTOMEGALOVIRUS (CMV) DNA, QUANT GEN LAB Routine 05/11/2024 8:55 AM CLINICAL RESEARCH SPEC BK VIRUS, DNA, QUANTITATIVE Routine 05/11/2024 8:55 AM CLINICAL RESEARCH SPEC HEPATITIS PANEL, ACUTE STAT 10:00 AM CDT [...] CDT) Tacrolimus, Highly Sensitive, LC/MS/MS <1.0(L) mcg/L [facility] Comment: Verified by repeat analysis. No definitive therapeutic or toxic ranges have been established. Optimal blood drug levels are influenced by type of transplant, patient response, time post- transplant, co-administration of other drugs, and drug formulation. The following trough range is a suggested guideline: 5.0-20.0 mcg/L. 07/20/2024 8:35 AM CDT 07/20/2024 8:37 AM CDT Juanita [facility] - 07/24/2024 2:46 PM CDT LB FASTING:YES FASTING: YES us Bruce Justice MD LAB BLOOD ORDERABLES Final Resu lt [facility] [address] [place] [address] * Cytomegalovirus (CMV) DNA PCR, quantitative (07/20/2024 8:35 AM CDT) CMV DNA qn Not Detected Not Detected IU/mL [facility] CMV DNA log IU/mL Not Detected Not Detected Log IU/mL [facility] Comment: (Note) For additional information, please refer to http://education.CallFire/faq/CMVandEBVPCR (This link is being provided for informational/educational purposes only.) [facility] [address] [place] [address],[address] [place] [address] Laurita Deleon MD, PhD 07/20/2024 8:35 AM CDT 07/20/2024 8:37 AM CDT Narrative [facility] - 07/24/2024 2:46 PM CDT LB FASTING:YES FASTING: YES us Bruce Justice MD LAB [facility]OLOG[facility] - [facility] Final Result Performing Organization Address City/[facility]/ZIP Co de Phone Number [facility] [address] [place] [address], [address] [address] * COPY(IES) SENT TO: (07/20/2024 8:35 AM CDT) COPY(IES) SENT TO: [facility] Comment: [facility] - COPY TO [facility] [address] [place] [address] 07/20/2024 8:35 AM CDT 07/20/2024 8:37 AM CDT Narrative [facility] - 07/24/2024 2:46 PM CDT LB FASTING:YES FASTING: YES us Bruce Justice MD LAB BLOOD ORDERABLES Final Resu lt [facility] * (ABNORMAL) BK virus, DNA, quantitative (07/20/2024 8:35 AM CDT) Pathologist [facility] BK virus, PCR <21.5(A) Not Detected IU/mL [facility] Comment: Detected BK Virus DNA was detected below 21.5 IU/mL. Viral load in this range cannot be accurately quantifi BK Virus DNA, Real Time PCR <1.33(A) Not Detected Log IU/mL [facility] Comment: [facility] [address] [address],[address] [facility] [id number] Laurita Deleon MD, PhD 07/20/2024 8:35 AM CDT 07/20/2024 8:37 AM CDT Narrative [facility] - 07/24/2024 2:46 PM CDT LB FASTING:YES FASTING: YES Bruce Justice MD LAB MICROBIOLOGY - [facility] Final Result [facility] [address] [place] [address], [address] [place] [address] * CBC with auto differential (07/20/2024 8:35 AM CDT) Pathologist [facility] WBC 7.2 3.8 - 10.8 Thousand/u L [...] BLOOD ORDERABLES Final Resu lt [facility] [address] [place] [address] * (ABNORMAL) Protein / creatinine ratio, urine, [...] LAB URINE ORDERABLES Final Resu lt [facility] [address] [address] [place] [address] * (ABNORMAL) Renal function panel (07/20/2024 8:35 AM CDT) Pathologist [facility] Glucose 92 65 - 99 mg/dL [facility] [...] BLOOD ORDERABLES Final Resu lt [facility] [address] [address] [place] [address] * (ABNORMAL) Tacrolimus, Highly Sensitive, LC/MS/MS (06/15/2024 10:01 AM CLINICAL RESEARCH SPEC) Pathologist [facility] Tacrolimus, Highly Sensitive, LC/MS/MS <1.0(L) mcg/L [facility] Comment: Verified by repeat analysis. No definitive therapeutic or toxic ranges have been established. Optimal blood drug levels are influenced by type of transplant, patient response, time post- transplant, co-administration of other drugs, and drug formulation. The following trough range is a suggested guideline: 5.0-20.0 mcg/L. 06/15/2024 10:0 1 AM CLINICAL RESEARCH SPEC 06/15/2024 10:02 AM CLINICAL RESEARCH SPEC Narrative [facility] - 06/18/2024 10:27 AM CLINICAL RESEARCH SPEC LB Bruce Justice MD LAB BLOOD ORDERABLES Final Resu lt [facility] [address] [place] [address] * Cytomegalovirus (CMV) DNA PCR, quantitative (06/15/2024 10:01 AM CLINICAL RESEARCH SPEC) [facility] CMV DNA qn Not Detected Not Detected IU/mL [facility] CMV DNA log IU/mL Not Detected Not Detected Log IU/mL [facility] Comment: (Note) For additional information, please refer to http://education.CallFire/faq/CMVandEBVPCR (This link is being provided for informational/educational purposes only.) [facility] [address] [address],[address] [place] [address] Laurita Deleon MD, PhD 06/15/2024 10:0 1 AM CLINICAL RESEARCH SPEC 06/15/2024 10:02 AM CLINICAL RESEARCH SPEC Narrative [facility] - 06/18/2024 10:27 AM CLINICAL RESEARCH SPEC LB Bruce Justice MD LAB MICROBIOLOGY - GENERAL ORDE RABLES Final Result [facility] [address] [place] [address], [address] [place] [phone] * COPY(IES) SENT TO: (06/15/2024 10:01 AM CLINICAL RESEARCH SPEC) COPY(IES) SENT TO: [facility] Comment: [facility] - COPY TO [facility] [address] [place] [address] 06/15/2024 10:0 1 AM CLINICAL RESEARCH SPEC 06/15/2024 10:02 AM CLINICAL RESEARCH SPEC Narrative [facility] - 06/18/2024 10:27 AM CLINICAL RESEARCH SPEC LB Bruce Justice MD LAB BLOOD ORDERABLES Final Resu lt [facility] * (ABNORMAL) BK virus, DNA, quantitative (06/15/2024 10:01 AM CLINICAL RESEARCH SPEC) Pathologist [facility] BK virus, PCR 41(A) Not Detected IU/mL [facility] BK Virus DNA, Real Time PCR 1.61(A) Not Detected Log IU/mL [facility] Comment: F med fusion [address] [address],[address] [place] [address] [facility] Dmitriy Deleon MD, PhD 06/15/2024 10:0 1 AM CLINICAL RESEARCH SPEC 06/15/2024 10:02 AM CLINICAL RESEARCH SPEC Narrative [facility] - 06/18/2024 10:27 AM CLINICAL RESEARCH SPEC LB us Bruce Justice MD LAB MICROBIOLOGY - [facility]AL [facility] Final Result [facility] [address] [place] [address], [address] [place] [phone] * (ABNORMAL) CBC with auto differential (06/15/2024 10:01 AM CLINICAL RESEARCH SPEC) WBC 7.8 3.8 - 10.8 Thousand/u L [...] [facility] 06/15/2024 10:0 1 AM CLINICAL RESEARCH SPEC 06/15/2024 10:02 AM CLINICAL RESEARCH SPEC Narrative [facility] - 06/18/2024 10:27 AM CLINICAL RESEARCH SPEC LB us Bruce Justice MD LAB BLOOD ORDERABLES Final Resu lt [facility] [address] [address] [place] [address] * (ABNORMAL) Protein / creatinine ratio, urine, random (06/15/2024 10:01 AM CLINICAL RESEARCH SPEC) Creatinine, ur 21 20 - 275 mg/dL [facility] Protein/creati nine ratio 35,000(H) 24 - 184 mg/g creat [facility] Protein/Creati nine Ratio 35.000(H) 0.024 - 0.184 mg/mg creat [facility] Protein, ur, quant 735(H) 5 - 24 mg/dL [facility] Comment: Verified by repeat analysis. 06/15/2024 10:0 1 AM CLINICAL RESEARCH SPEC 06/15/2024 10:02 AM CLINICAL RESEARCH SPEC Narrative [facility] - 06/18/2024 10:27 AM CLINICAL RESEARCH SPEC LB us Bruce Justice MD LAB URINE ORDERABLES Final Resu lt [facility] [address] [address] [place] [address] * (ABNORMAL) Renal function panel (06/15/2024 10:01 AM CLINICAL RESEARCH SPEC) Glucose 90 65 - 99 mg/dL [facility] [...] [facility] 06/15/2024 10:0 1 AM CLINICAL RESEARCH SPEC 06/15/2024 10:02 AM CLINICAL RESEARCH SPEC Narrative [facility] - 06/18/2024 10:27 AM CLINICAL RESEARCH SPEC LB Bruce Justice MD LAB BLOOD ORDERABLES Final Resu lt [facility] [address] [address] [place] [address] * (ABNORMAL) Tacrolimus, Highly Sensitive, LC/MS/MS (05/11/2024 8:55 AM CLINICAL RESEARCH SPEC) Pathologist [facility] Tacrolimus, Highly Sensitive, LC/MS/MS 1.2(L) mcg/L [facility] Comment: No definitive therapeutic or toxic ranges have been established. Optimal blood drug levels are influenced by type of transplant, patient response, time post- transplant, co-administration of other drugs, and drug formulation. The following trough range is a suggested guideline: 5.0-20.0 mcg/L. 05/11/2024 8:55 AM CLINICAL RESEARCH SPEC 05/11/2024 8:56 AM CLINICAL RESEARCH SPEC Narrative [facility] - 05/15/2024 2:37 AM CLINICAL RESEARCH SPEC LB FASTING:YES FASTING: YES Bruce Justice MD LAB BLOOD ORDERABLES Final Resu lt Performing Organization Address City/[facility]/ZIP Co de Phone Number [facility] [address] [address] [address] * Cytomegalovirus (CMV) DNA PCR, quantitative (05/11/2024 8:55 AM CLINICAL RESEARCH SPEC) Pathologist [facility] CMV DNA qn Not Detected Not Detected IU/mL [facility] CMV DNA log IU/mL Not Detected Not Detected Log IU/mL [facility] Comment: (Note) For additional information, please refer to [email or web address].W[employer]/faq/CMVandEBVPCR (This link is being provided for informational/educational purposes only.) [facility] [address] [address],[address] [facility] [address] Laurita Deleon MD, PhD 05/11/2024 8:55 AM CLINICAL RESEARCH SPEC 05/11/2024 8:56 AM CLINICAL RESEARCH SPEC Narrative [facility] - 05/15/2024 2:37 AM CLINICAL RESEARCH SPEC LB FASTING:YES FASTING: YES Bruce Justice MD LAB MICROBIOLOGY - GENERAL ORDE RABLEXX Final Result [facility] [address] [facility] [address], [address] [place] [address] * COPY(IES) SENT TO: (05/11/2024 8:55 AM CLINICAL RESEARCH SPEC) COPY(IES) SENT TO: [facility] Comment: [facility] - COPY TO [address] [address] 05/11/2024 8:55 AM CLINICAL RESEARCH SPEC 05/11/2024 8:56 AM CLINICAL RESEARCH SPEC Narrative [facility] - 05/15/2024 2:37 AM CLINICAL RESEARCH SPEC LB FASTING:YES FASTING: YES Bruce Justice MD LAB BLOOD ORDERABLES Final Resu lt Performing Organization Address City/[facility]/ZIP Co de Phone Number [facility] * BK virus, DNA, quantitative (05/11/2024 8:55 AM CLINICAL RESEARCH SPEC) BK virus, PCR Not Detected Not Detected IU/mL [facility] BK Virus DNA, Real Time PCR Not Detected Not Detected Log IU/mL [facility] Comment: [facility] [address] [address],[address] [place], [place] [id number] Laurita Deleon MD, PhD 05/11/2024 8:55 AM CLINICAL RESEARCH SPEC 05/11/2024 8:56 AM CLINICAL RESEARCH SPEC Narrative [facility] - 05/15/2024 2:37 AM CLINICAL RESEARCH SPEC LB FASTING:YES FASTING: YES Bruce Justice MD LAB MICROBIOLOGY - GENERAL ORDE RABLES Final Result Performing Organization Address City/[facility]/ZIP Co de Phone Number [facility] [address] [address], [address] [place] [phone] * (ABNORMAL) CBC with auto differential (05/11/2024 8:55 AM CLINICAL RESEARCH SPEC) [facility] WBC 7.0 3.8 - 10.8 Thousand/u [...] % [facility] 05/11/2024 8:55 AM CLINICAL RESEARCH SPEC 05/11/2024 8:56 AM CLINICAL RESEARCH SPEC Narrative [facility] - 05/15/2024 2:37 AM CLINICAL RESEARCH SPEC LB FASTING:YES FASTING: YES Bruce Justice MD LAB BLOOD ORDERABLES Final Resu lt Performing Organization Address [facility] Co de Phone Number SAM[facility] [address] [place] [address] * (ABNORMAL) Protein / creatinine ratio, urine, random (05/11/2024 8:55 AM CLINICAL RESEARCH SPEC) Creatinine, ur 7(L) 20 - 275 mg/dL [facility] Protein/creati nine ratio 244,286(H) 24 - 184 mg/g creat [facility] Protein/Creati nine Ratio 244.286(H) 0.024 - 0.184 mg/mg creat [facility] Protein, ur, quant 1,710(H) 5 - 24 mg/dL [facility] Comment: Results verified by repeat analysis on dilution. 05/11/2024 8:55 AM CLINICAL RESEARCH SPEC 05/11/2024 8:56 AM CLINICAL RESEARCH SPEC Narrative [facility] - 05/15/2024 2:37 AM CLINICAL RESEARCH SPEC LB FASTING:YES FASTING: YES Bruce Justice MD LAB URINE ORDERABLES Final Resu Performing Organization Address [facility] de Phone Number [facility] [address] [place] [address] * (ABNORMAL) Renal function panel (05/11/2024 8:55 AM CLINICAL RESEARCH SPEC) Glucose 87 65 - 99 mg/dL [facility] [...] g/dL [facility] 05/11/2024 8:55 AM CLINICAL RESEARCH SPEC 05/11/2024 8:56 AM CLINICAL RESEARCH SPEC Narrative [facility] - 05/15/2024 2:37 AM CLINICAL RESEARCH SPEC LB FASTING:YES FASTING: YES us Bruce Justice MD LAB BLOOD ORDERABLES Final Resu lt [facility] [address] [place] [address] * Hepatitis panel, acute Blood (12/03/2023 10:00 AM CDT) Hep A IgM Nonreactive Nonreactive Comment: Interpretive Data: If Hep A IgM Ab is reported as Equivocal, a new sample should be drawn in two weeks for testing. Current interpretive data was last revised on 19. Hep B core IgM Nonreactive [facility] Comment: Interpretive Data If HepB Core IgM Ab is reported as Equivocal, a new sample should be drawn in two weeks for testing. Current interpretive data was last revised on 19. Hep C Ab Nonreactive Nonreactive [facility] Comment: Interpretive Data Nonreactive: Antibodies to [...] last revised on 2019. HepBsAg Nonreactive Nonreactive [facility] Blood 12/03/2023 10:0 0 AM CDT 12/03/2023 10:01 AM CDT Anna Clarke MD LAB MICROBIOLOGY - GENERAL OR DERABLES Final Result Performing Organization Address City/State/[place] [address] [place] [address] from Last 3 Months or Most Recently Relevant to Health Maintenance [facility] MEDICARE [place] MEDICARE MEDICARE [facility] Advance Directives For more information, please contact: [phone] * Full Code (Latest Code Status on [...] 10:10 AM 03/04/2023 8:53 PM Care Teams Director Software Quality Assurance Relationship Specialty Start Date End Date Nikkie Gordon MD PCP - General Family Medicine 03/09/21 Nikkie Gordon MD 03/09/21 Susan Jones MD 11/27/18 Kristian Ram MD Consulting Physician Nephrology 05/05/19 Chelo Herzog, RN [address] [address] Metal Weigher 05/05/19 Davidson Martinez MD [address] [address] At Risk Specialist Cardiology 08/16/21 Tyson Bales MD [address] [address] At Risk Specialist Cardiovascular Disease 04/16/22 Kristian Ram MD [address] [place] [id number] Referring Physician Nephrology 03/11/23 Anna Clarke MD [address] [place] [address] DR LAMAR [address] [place] [id number] Consulting Physician Nephrology 04/24/23
--- OUTSIDE RECORDS SUMMARY | 2024-08-03 08:44 | XMS_ITS | Clinical Summary ---
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 For any questions, please call customer service at FREQUENCY:MONTHLY Resulting Agency Comment Specimen source: Blood us Christin Sapp MD LAB BLOOD BANK TEST ORDERAB LES Final Result [facility] from Last 3 Months or Most Recently Relevant to Health Maintenance Insurance MEDICARE [place]ICAID [place] [facility] (PIL) Care Teams Cement Cutter Relationship Specialty Start Date End Date Nikkie Gordon MD [address] [place] [address] PCP - General 01/24/20
--- OUTSIDE RECORDS SUMMARY | 2024-08-03 08:44 | XMS_ITS | Clinical Summary ---
Author Organization [facility] Address [address] [place] [address] Phone Care Team Providers Care Dental Patient Coordinator Name Role Phone Kristian Ram MD Unavailable [phone] Nikkie Gordon MD Primary Care Provider Allergies Active Allergy Reactions Criticality Noted Date [...] 21 Active ethyl chloride Aerosol Apply 1 [place] three times a week. APPLY TO DIALYSIS [...] to COVID-19 virus 04/28/2021 Overview (08/26/2021): at [facility] Prediabetes 05/21/2019 Obesity, Class II, BMI [...] on file Legal Sex Female 9:20 AM [employer] Gender Identity Not on file Sexual Orientation [...] ACUTE (AHP) Routine 08/28/2021 9:52 AM CDT [facility] DIAG BILATERAL DIGITAL W CAD W JAGDEEP Routine 02/22/2021 3:22 PM CDT Mastodynia [facility] BONE DENSITOMETRY AXIAL SKELETON Routine 02/19/2021 10:52 AM CDT Asymptomatic menopausal state STOOL, OCCULT BLOOD, DIAGNOSTIC, VIA GUAIAC STAT 02/15/2021 11:59 PM CDT from Last 3 Months or Most Recently Relevant to Health Maintenance Results * Hepatitis Panel Acute (AHP) (08/28/2021 9:52 AM CDT) HEPATITIS A IGM ANTIBODY NON DETECTED NON DETECTED [place] [id number] 08/28/2021 2:58 PM CDT [facility] Comment: IGM Antibodies to HAV not detected. Does not exclude early acute or recovered HAV infection. HEP B CORE AB (IGM) NON DETECTED NON DETECTED [place] [id number] 08/28/2021 2:58 PM CDT [facility] Comment:IGM anti-HBC not det ected. Does not exclude the possibility of exposure to or infection with HBV. HEPATITIS B SURFACE ANTIGEN NON DETECTED NON DETECTED [address] 08/28/2021 2:58 PM CDT [facility] Comment:A nonreactive test r esult does not exclude the possibility of exposure to or infection with Hepatitis B virus. A nonreactive test result in individuals with prior exposure to hepatitis B may be due to antigen levels below the detection limit of this assay or lack of antigen reactivity to the antibodies in this assay. hepatitis C antibody 0.08 <1 S/CO [place] [id number] 08/28/2021 2:58 PM CDT [facility] Comment: Signal/Cutoff ratio < 0.79 is Nondetected Signal/Cutoff ratio 0.80-0.99 is Grayzone Signal/Cutoff ratio > 0.99 is Detected Supplemental assays are recommended if signal/cutoff ratio is >/=1.00. Signal/cutoff ratio result >/= 5.00 is 97% predictive of positivity for recombinant immunoblot assay (RIBA) and will be reported to the [place] Department of Public Health as required. Blood Venipuncture / Unknown 08/28/2021 9:52 AM CDT 08/28/2021 9:52 AM CDT us Pj Maxwell DO HEMATOLOGY ORDERABLES Final Result [facility] [address] [place] [address], [place] * [facility] DIAG BILATERAL DIGITAL W [...] Comparison is made to exam dated: 08/03/2016 [facility]. Ultrasound of was performed. BREAST TISSUE:There are scattered fibroglandular densities in both breasts. FINDINGS: There is a global asymmetry in the left breast with marked enlargement of the left breast with skin and trabecular thickening. There is no discrete mass. Ultrasound demonstrates diffuse edema. Targeted ultrasound of the axilla demonstrates no abnormality. Per air conditioning supervisor, there is a large lump in the [...] signed by: Rema Dunn M.D. ts/:02/22/2021 15:32:55 Calcine Furnace Tender(s): Shashi Lowery (R)), [facility]; Glenny Esquivel, [facility] letter sent: Abnormal Exam Reading location: [place] [...] Comparison is made to exam dated: 08/03/2016 [facility]. Ultrasound of was performed. BREAST TISSUE:There are scattered fibroglandular densities in both breasts. FINDINGS: There is a global asymmetry in the left breast with marked enlargement of the left breast with skin and trabecular thickening. There is no discrete mass. Ultrasound demonstrates diffuse edema. Targeted ultrasound of the axilla demonstrates no abnormality. Per air conditioning supervisor, there is a large lump in the [...] signed by: Rema Dunn M.D. ts/:02/22/2021 15:32:55 Calcine Furnace Tender(s): Frieda Lowery)(Bautista), [facility]; Glenny Esquivel, [facility] letter sent: Abnormal Exam Reading location: [place] OVERALL STUDY BIRADS: 4c High suspicion of malignancy us Nikkie Gordon MD IMG MAMMO ORDERABLES Final Resul t * [facility] BONE DENSITOMETRY AXIAL SKELETON (02/19/2021 10:52 AM CDT) Anatomical Region Laterality Modality BODY N/A Other 02/19/2021 1:28 PM CDT Impressions 02/19/2021 1:31 PM CDT [...] Narrative 02/19/2021 1:31 PM CDT EXAM DESCRIPTION: [facility] BONE DENSITOMETRY AXIAL SKELETON REASON FOR STUDY: 65 year old female with given history of asymptomatic menopausal state. 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 MD: Report ID: [id number] Reading Location: [place] [address] IMPRESSION: Normal bone mineral density by WHO [...] Blood - Diagnostic (02/15/2021 11:59 PM CDT) [facility] Signature OCCULT BLOOD DIAG, GI BLEED Negative Negative 02/16/2021 12:26 AM CDT [facility] Stool Non-Phlebotomy Collection / Unknown 02/15/2021 11:59 PM CDT 02/16/2021 12:21 AM CDT Familia Brunson MD BODY FLUIDS & STOOLS MARY POTTS Final Result [facility] [address] [place] [address] from Last 3 Months or Most Recently [...] measures to stabilize the patient. Care Teams Dental Patient Coordinator Relationship Specialty Start Date End Date Nikkie Gordon MD [address] [place] [address] PCP - General Family Medicine 02/18/20 Kristian Ram MD Consulting Physician Nephrology 11/20/18
[2024-08-03 09:23] LABS: INR 0.9; Prothrombin Time 13.1 Seconds (11.1-14.7)
[2024-08-03 09:24] LABS: Partial Thromboplastin Time 24.3 Seconds (22.3-36.8)
[2024-08-03 09:42] LABS: Anion Gap 13 mmol/L (4-12); Blood Urea Nitrogen 23 mg/dL (7-17); Calcium 9.1 mg/dL (8.4-10.2); Carbon Dioxide 26 mmol/L (22-30); Chloride 96 mmol/L (98-107); Estimated Glomerular Filt Rate 6; Glucose 114 mg/dL (65-110); Potassium 4.4 mmol/L (3.4-5.0); Sodium 135 mmol/L (137-145)
== END 2024-08-03 08:31 | disposition home or self-care (01) ==
PROVIDERS: PCP Family Medicine; Visit Provider Surgery
DX: K62.89 Other specified diseases of anus and rectum (principal); Z99.2 Dependence on renal dialysis; I12.9 Hypertensive chronic kidney disease with stage 1 through stage 4 chronic kidney disease, or unspecified chronic kidney disease; R94.31 Abnormal electrocardiogram [ECG] [EKG]
CPT/HCPCS: 36415; 80048; 85610; 85730; 93005

== ENCOUNTER 2024-08-06 00:25 | Day surgery (SDC) | payer MEDICARE, OTHER, SELFPAY ==
[2024-07-29 14:15] VITALS: BMI 34.5
--- NOTE | 2024-07-29 14:33 | PC.NURSE ---
Report to the Outpatient Waiting Room, entrance under the green pavilion located off [facility], at time __12:30pm on date ___08/06/24 . Planned Procedure Time: _2:30pm .? Time changes happen often and if your time is changed the preop area will call you the afternoon before. - You and your visitor will be asked to self-screen and do not enter if you have any COVID symptoms. Please call surgeon if you need to reschedule. - A mask is optional within the hospital at this time. Per Dr Wong - No food the day before surgery until time of surgery and no smoking, or chewing tobacco (or any form of nicotine). No chewing gum, candy or mints. Patients may have clear liquids day of (water, carbonated beverages, clear teas, apple juice) until 3 hours prior to surgery with a maximum of 20 ounces. (1130am) Take only the following medications with a SIP of water on the morning of surgery: Amlodipine,Labetalol, Prednisone, & tacrolimus DO NOT STOP ANY OF YOUR OTHER PRESCRIPTION MEDICATIONS PRIOR TO SURGERY EXCEPT THE FOLLOWING Hold all vitamins and supplements for 3 days per anesthesiologist.Date to take last dose is 08/02/24 Medications to discontinue per physician ____None Date to take last dose None Prep per Dr Wong with Fleets and Stool softeners/Laxatives as orders. Please no make-up, nail stateless, hairspray, perfume, deodorant, or body powder the day of surgery.? No jewelry (including any body piercings) or valuables the day of surgery, leave them at home.? Please take a shower or bath the night before, or the morning of, surgery with an antibacterial soap.? Wear comfortable, loose fitting clothing.? - Jewelry must be removed prior to entering the operating room.? Rings and piercings that are not removed may be cut off. - The hospital will not accept responsibility for valuables.? - Please leave all valuables, including medications, at home the day of surgery. If you are going home after surgery, a licensed sprinkler driver must drive you home.? - NO public transportation without another adult if you receive anesthesia. - We recommend that an adult stay with you for 24 hours following discharge. - We also recommend that you do not drive, make important decision, drink alcoholic beverages, or take any drugs that were not prescribed by your health care provider for at least 24 hours after your discharge time. Follow any additional instructions given to you from your surgeon. Telephone instructions given to ___Patient and asked if any additional questions and then verbalized understanding. Patient advised to call surgeon office or pre surgery nurse liaison [phone] if any additional questions.
--- NOTE | 2024-08-05 17:28 | P.SS_ITS ---
Same Day Admit/Disch: HPI History of Present Illness Chief complaint: Anal Mass Narrative: Ronan Valdivia is a 68 year old female who has noticed a anal canal roughened mass since April. Occasionally this causes difficulty having a bowel movement. She had a colonoscopy on 06/24/2024 which showed diverticulosis and this anal canal mass. She was seen in the office and it appears that this mass is on a fairly narrow stalk. She is taken to surgery at this time for rectal examination under anesthesia as well as transanal resection of rectal mass. 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 Patient has end-stage renal disease and is on hemodialysis. She did have a kidney transpla nt in 2007 but this failed and she is on hemodialysis for at least the last 4-5 years. [facility] Past Medical History Medical History Hemodialysis patient Chronic renal insufficiency, stage V H/O thyroid nodule Chronic renal insufficiency, stage IV (severe) Anemia in chronic kidney disease (CKD) Vitamin B12 deficiency Folic acid deficiency Acute on chronic renal insufficiency Essential hypertension Surgical History Surgical History History of bilateral tubal ligation History of renal stent Renal transplant recipient Family History Family History Mother Hypertension Sibling Hypertension Social History Social History Smoking packs per day: 0.5 Smoking cigarettes per day: 10.0 Years smoked: 4 Smoking pack-years: 2.00 Smoking status: Former smoker Tobacco type: cigarettes Smoking end date: 06/26/22 Additional smoking assessment comments: denies any nicotine Alcohol intake: never Substance use: never Substance use type: does not use Current Housing: Decline to Answer Concerned About Future Housing: Decline to Answer Difficulty Paying Gas/Electric Bills: Decline to Answer Difficulty Paying for Meds: Decline to Answer Currently Unemployed: Decline to Answer Difficulty w/ Childcare or Family Care: Decline to Answer Living arrangements: with family Additional living arrangements comments: Brother Gender identity (if verbalized by the patient): Female Spiritual care concerns: No Agree to blood products: Yes Same Day Admit/Disch: Med Pre-admit Medications Home Medications ?Medication ?Instructions ?Recorded ?Confirmed ?Type prednisone 5 mg tablet 5 mg PO DAILY 01/24/20 08/06/24 History inhalational spacing device #1 ea 08/13/21 07/29/24 Rx (RiteFlo Aerochamber) folic acid 1 mg tablet 1 mg PO DAILY #30 tabs 12/26/21 08/06/24 Rx furosemide 80 mg tablet 80 mg PO BID #60 tabs 12/26/21 08/06/24 Rx calcitriol 0.5 mcg capsule 0.5 mcg PO 3XW 08/26/22 08/06/24 History tacrolimus 1 mg capsule, 8 mg (8 x 1 mg) PO BID #60 caps 04/02/24 08/06/24 Rx immediate-release atorvastatin 10 mg tablet (Lipitor) 10 mg PO QHS #90 tabs 05/10/24 08/06/24 Rx amlodipine 10 mg tablet 10 mg PO DAILY #90 tabs 06/25/24 08/06/24 Rx labetalol 200 mg tablet 200 mg PO TID #270 tabs 06/25/24 08/06/24 Rx ethyl chloride 100 % topical spray 1 applic topical ONCE #116 mL 07/18/24 07/29/24 Rx oxycodone-acetaminophen 5 mg-325 1 - 2 tablet PO Q6H PRN pain #30 08/06/24 Rx mg tablet (Percocet) tabs Review of Systems Review of Systems All systems reviewed & are unremarkable except as noted in HPI and below (HPI) Exam Const: General: comfortable, no acute distress, alert and awake HENMT: Head: normocephalic and atraumatic Mouth: Yes Normal oral and palatal mucosa present Eyes: Conjunctivae: conjunctivae normal Pupils: Equal, round and reactive pupils present EOM: EOMs intact bilaterally Neck: Neck: normal visual inspection, no lymphadenopathy and nontender Resp: Effort & Inspection: normal respiratory effort Auscultation: clear to auscultation bilaterally Cardio: Rate: regular rate Rhythm: regular rhythm Heart sounds: no gallops, no murmurs and no rubs GI: Inspection: non-distended GI Palp: Yes Soft to palpation, No Tenderness to palpation present (GI), No Hepatomegaly present and No Splenomegaly present Rectal Exam: mass (3 x 2 cm anal canal mass) intraluminal Skin: Lesions: no lesions Rashes: no rashes Neuro: General: no focal motor deficits and CN's II-XI intact bilaterally Cranial nerves: Yes Equal, round and reactive pupils present, Yes Bilaterally intact EOM present, Yes facial symmetry and Yes Midline tongue present Speech: normal speech Motor exam (neuro): 5/5 motor strength present throughout and Motor abnormalities not present Extrem: General: no clubbing, cyanosis or edema and edema Psych: Affect: normal affect Thought process: Normal thought process present Insight: Good insight present (Psych) DS: Summary Time Spent with Patient Time attestation: Total time spent providing and/or coordinating discharge services: DS: Admitting Diagnosis Discharge Date 08/06/2024 Admitting Diagnosis * 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 This appears to be on a somewhat narrow stalk. We will proceed with rectal exam under anesthesia and transanal excision if possible. If complete excision is not possible, we will at least biopsy the mass. I explained this to the patient in detail. This will be done as an outpatient procedure. The procedure, risks, benefits have been discussed. All questions were answered. She understands and agrees to go ahead. * Essential hypertension * End-stage renal disease on hemodialysis * History of failed renal transplant performed in 2007 DS: Discharge Diagnosis Discharge Diagnosis (1) Mass of anus: Code(s): K62.89 - Other specified diseases of anus and rectum Status: Chronic Assessment and Plan: Mass excised 08/06/[address] Wong as an outpatient. (2) ESRD (end stage renal disease): Code(s): N18.6 - End stage renal disease Status: Chronic (3) Hemodialysis patient: Code(s): Z99.2 - Dependence on renal dialysis Status: Chronic (4) Chronic CHF: Qualifiers: Heart failure type: unspecified Qualified Code(s): I50.9 - Heart failure, unspecified Code(s): I50.9 - Heart failure, unspecified Status: Chronic (5) Anemia in chronic kidney disease (CKD): Qualifiers: Chronic kidney disease stage: on chronic dialysis Qualified Code(s): N18.6 - End stage renal disease; D63.1 - Anemia in chronic kidney disease; Z99.2 - Dependence on renal dialysis Code(s): N18.9 - Chronic kidney disease, unspecified; D63.1 - Anemia in chronic kidney disease Status: Chronic Discharge Plan Discharge Patient Disposition: Home Discharge Instructions: Discharge Instructions for Anorectal Surgery Dr. Wong 1. May discharge from Outpatient Surgery area or Surgical Floor when stable per protocol. 2. Activity: Remove dressing and start Sitz baths in a.m. following surgery. Once at home, all patients should take 10-20 minute Sitz baths at least two times per day and as needed after each bowel movement. After the first Sitz bath, keep a dry 4 x 4 gauze pad over rectum at all times. Replace gauze pad after each Sitz bath and as needed. There will be rectal drainage and the gauze pad will wick away such drainage. Rest around the house for the next 1-2 days, taking frequent walks. No driving for 2-3 days or while taking narcotic pain medications. 3. Diet: Resume renal dialysis usual diet 4. Medications: ? Resume all home medications. ? Metamucil 1 tablespoon PO twice a day ? Mineral Oil 1 tablespoon PO twice a day ? Percocet 5/325 1 PO q 4 hours as needed for moderate pain. ? Percocet 5/325 2 PO q 6 hours as needed for severe pain. ? Acetaminophen 650 mg PO q 6 hours as needed for mild pain. ? Tucks cream pads to perianal skin after each Sitz bath. Prescriptions for the above medications will be provided at the time of discharge or they can be bought [id number]. 5. Follow-up: call office for appointment in 10-14 days or as previously scheduled. 6. Call office if: ? Sudden increase in pain, swelling or incisional drainage or bleeding occurs. ? Fever > 101 degrees F. ? Nausea and vomiting occur Patient Language: Russian Stand Alone Forms: General Discharge Instructions Follow-up/Referrals: Junaid Wong MD [Physician] - 2 Weeks Discharge Medications: New oxycodone-acetaminophen [Percocet] 5-325 mg tablet 1 - 2 tablet PO Q6H PRN (Reason: pain) Qty: 30 0RF Continued prednisone 5 mg tablet 5 mg PO DAILY (DME) R[employer]Flo Aerochamber Spacer See Rx Instructions .Route Qty: 1 0RF Rx Instructions: As directed daily with albuterol inhaler folic acid 1 mg tablet 1 mg PO DAILY Qty: 30 11RF calcitriol 0.5 mcg capsule 0.5 mcg PO 3XW Rx Instructions: administer after dialysis on dialysis days furosemide 80 mg tablet 80 mg PO BID Qty: 60 0RF tacrolimus 1 mg capsule 8 mg PO BID Qty: 60 0RF atorvastatin [Lipitor] 10 mg tablet 10 mg PO QHS Qty: 90 2RF labetalol 200 mg tablet 200 mg PO TID Qty: 270 1RF amlodipine 10 mg tablet 10 mg PO DAILY Qty: 90 1RF ethyl chloride 100 % aerosol,spray 1 applic topical ONCE Qty: 116 1RF Rx Instructions: to area of cannulation Discontinued oxycodone 5 mg tablet 5 mg PO Q4H PRN (Reason: pain)
[2024-08-06] VITALS (8 sets, daily range): BP systolic 90–133; BP diastolic 47–93; PULSE 60–78; RESP 12–20; TEMP 36.3–36.6; O2SAT 93–100
--- OUTSIDE RECORDS SUMMARY | 2024-08-06 00:28 | XMS_ITS | Continuity of Care Document ---
Author Name [facility] Address [address] [place] [address] Organization [facility] Care Team Providers Care Registered Private Duty Nurse Name Role Phone [facility] Unavailable Unavailable Problems Problem Status Onset Date [...] Comments Source allopurinol Assertion Drug allergy Active [facility] iodine topical Assertion Drug allergy Active [facility] Results Order Name Results Value Reference Range Date Interpretation Comments Source REFERENCE LABS HLA Single Antigen Id Class I See scanned image 07/05 14:06 :00 [facility] REFERENCE LABS HLA Antibody Screening Class I & II See scanned image 07/05 14:06 :00 [facility] Culture UrineX No growth at 100 CFU/ml, Final. 05/24 13:30 :00 [facility] XR C-Arm XR C-Arm XR General Diagnostic Accession # Exam Date/Time Procedure Ordering Provider [id number] 05/24/2024 07:35 [employer] XR C-Arm Raoul Potter MD Reason For Exam (XR C-Arm) Rt Ureteral stent placement Report OR C-arm case. Exam performed. No report to be issued. I have personally reviewed the images and attest to the contents of this report. * * *Final Report* * * Electronic ally Signed by: Renita Course Heroolesya, PS360 Signed on: 05/24/24 10:39 05/24 07:20 :00 [facility] REFERENCE LABS HLA Anti-A Titer see scanned image 02/08 11:36 :00 [facility] Cardiac - SPECT Perfusion Pharmacolo gical Stress [place] Cardiac - SPECT Perfusion Pharmacologi genna Stress Nuc Med PET Accession # Exam Date/Time Procedure Ordering Provider [id number] 12/25/2023 13:30 CDT [place] Cardiac - Perfusion Raoul Potter MD Pharmalogi genna Ana Nolasco Reason For Exam ([place] Cardiac - Perfusion Pharmalogi genna Str) DSE [...] EDV/sec Normal TTPF: < 230 millisecon ds ([facility] August 2014) Per NCDR Registry: The [...] 12/25/23 15:13 12/24 10:25 :33 [facility] REFERENCE LABS HLA Anti-A Titer see scanned image 10/26 11:25 :00 [facility] REFERENCE LABS HLA Antibody Screening Class I & II see scanned image 10/05 16:09 :00 [facility] GENERAL CHEMISTRY Sodium 136 mmol/L 136 - 145 09/22 16:32 :00 [facility] GENERAL CHEMISTRY Potassium 5.5 mmol/L 3.5 - 5.1 09/22 16:32 :00 [facility] CHEMISTRY Chloride 92 mmol/L 98 - 107 09/22 16:32 :00 [facility] GENERAL CHEMISTRY CO2 27 mmol/L 22 - 09/22 16:32 :00 [facility] GENERAL CHEMISTRY Glucose Lvl 98 mg/dL 70 - 139 09/22 16:32 :00 [facility] GENERAL CHEMISTRY BUN 18 mg/dL 8 - 23 09/22 16:32 :00 [facility] CHEMISTRY Creatinine, standardized 7.43 mg/dL 0.50 - 1.00 09/22 16:32 :00 Interpretive Data: Jtzldx-tl-kwy e transgender patients on testosterone therapy should have results assessed using the male reference range. Kfma-qn-mootr e transgender patients on hormone-modul ating therapy clinical judgment is advisedfor assessment. [facility] GENERAL CHEMISTRY Calcium 10.2 mg/dL 8.6 - 10.2 09/22 16:32 :00 [facility] CHEMISTRY Alkaline Phosphatase 60 units/L 35 - 104 09/22 16:32 :00 Interpretive Data: Normal range for plasma alkaline phosphatase in females 20 years or older: 35-104 U/L according to psychological anthropologist' s instructions 35-129 U/L according to data analysis on adult females who presented to [facility] in 2021 without a significant diagnosis Clinical judgement is advised. Plzpuw-fs-gsi e transgender patients on testosterone therapy should have results assessed using the male reference range. Gmpw-th-mxbov e transgender patients on hormone-modul ating therapy clinical judgment is advisedfor assessment. [facility] GENERAL CHEMISTRY AST-SGOT 13 units/L 09/22 16:32 :00 [facility] CHEMISTRY ALT-SGPT 9 units/L 10 - 35 09/22 16:32 :00 [facility] CHEMISTRY T Bili 0.40 mg/dL 0.00 - 1.60 09/22 16:32 :00 [facility] CHEMISTRY Total Protein 7.4 g/dL 6.6 - 8.7 09/22 16:32 :00 [facility] GENERAL CHEMISTRY Albumin 4.1 g/dL 3.5 - 5.2 09/22 16:32 :00 [facility] CHEMISTRY Estimated GFR for Adults 6 mL/min/1.7 3m 09/22 16:32 :00 Result Comment: The eGFR was estimated using the CKD-EPI equation. The National Kidney Foundation recommends that all clinical labs utilize this equation: Hattie , Ellis LA, Estuardo CH, et al. A new equation to estimate glomerular filtration rate. [employer] Nutritionist Med. 2009;150(9):6 04-612. For calculation reference see https://www.k idney.org/pro fessionals/kd oqi/gfr_calcu lator Interpretive Data: Changed to CKD-EPI [address] [facility] GENERAL CHEMISTRY Anion gap 22 mmol/L 0 - 20 09/22 16:32 :00 [facility] CHEMISTRY Estimated GFR for peds Not calculated 09/22 16:32 :00 Interpretive Data: The estimated GFR was calculated using the Triny hernadez Orozco equation (2009) . Reference: Pediatric GFR calculator at National Kidney Foundation Website. [facility] CHEMISTRY Triglyceride s 98 mg/dL 0 - 150 09/22 16:32 :00 Interpretive Data: Less than 150 Normal 150 - 199 Borderline high 200 - 499 High 500 and above Very high National Cholesterol Education Program [facility] [address] [address] [place] [address] http://www.nh lbi,nih.gov [facility] CHEMISTRY Cholesterol HDL Ratio 1.9 09/22 16:32 :00 Interpretive Data: The cholesterol HDL ratio is the best overall predictor of heart disease. -Less than 5 is normal -From 5 to 9 there is increasing risk -Higher than 9 is high risk. A ratio higher than 9 will often require prescription medication to help prevent heart disease. See http://[facility]-al go.[facility]/Jessica velazquez/Lipi d.htm for more information. [facility] CHEMISTRY LDL (Calculated) 73 mg/dL 0 - 129 09/22 16:32 :00 Interpretive Data: LDL Cholesterol Level mg/dL Category Less than 100 Optimal 100 to 129 Near or above optimal 130 to 159 Borderline high 160 to 189 High 190 and above Very High Note: Values < 80 mg/dL may indicate hypobetalipop roteinemia, if not on Statin therapy. Reference: ATP III Guidelines, http://[facility]jessica go.[facility]/Jessica velazquez/Lipi d.htm National Cholesterol Education Program [facility] Health Information Network [address] [address] [place] [address] http:www.nhlb i.nih.gov Footnote: Depending on cardiac risk factors, age, and sex, [facility] Cardiology prefers: <75 mg/dl optimal <100 mg/dl desirable [facility] GENERAL CHEMISTRY HDL Cholesterol 106 mg/dL 50 - 60 09/22 16:32 :00 Interpretive Data: HDL Cholesterol Level mg/dL Category Less than 40(for Men) Low HDL cholesterol. A major risk factor for heart disease. Less than 50 (for Women) 60 and above High HDL cholesterol. An HDL of 60 mg/dL and above is considered protective against heart disease. National Cholesterol Education Program [facility] Health Information Network [address] [address] [place] [address] http:www.nhlb i.nih.gov [facility] GENERAL CHEMISTRY Cholesterol 199 mg/dL 0 - 200 09/22 16:32 :00 [facility] GENERAL CHEMISTRY Phosphorus 4.7 mg/dL 2.5 - 4.5 09/22 16:32 :00 [facility] CHEMISTRY Syphilis Antibody, IgG and Ig M Nonreactiv e 9 *NA* (09/23/23 11:32 AM) 09/22 16:32 :00 Interpretive Data: Repeatedly reactive samples will reflex to RPR for Titer. If RPR results are not confirmatory, Syphilis Antibody by TP-PA will be performed. [facility] HEMATOLOGY PROFILES WBC 8.40 x10(9)/L 3.50 - 10.50 09/22 16:32 :00 [facility] HEMATOLOGY PROFILES RBC 4.22 x10(12)/L 3.90 - 5.03 09/22 16:32 :00 [facility] HEMATOLOGY PROFILES HGB 12.6 g/dL 12.0 - 15.5 09/22 16:32 :00 Interpretive Data: Lhlncc-ws-xap e transgender patients on testosterone therapy should have results assessed using the male reference range. Vohr-rf-dgelw e transgender patients on hormone-modul ating therapy clinical judgment is advisedfor assessment. [facility] HEMATOLOGY PROFILES HCT 40.4 % 34.9 - 44.5 09/22 16:32 :00 Interpretive Data: Ghiwge-pq-tyr e transgender patients on testosterone therapy should have results assessed using the male reference range. Pbfo-ji-zofjg e transgender patients on hormone-modul ating therapy clinical judgment is advisedfor assessment. [facility] HEMATOLOGY PROFILES MCV 95.7 fL 81.6 - 98.3 09/22 16:32 :00 [facility] HEMATOLOGY PROFILES MCH 29.9 pg 26.0 - 33.0 09/22 16:32 :00 [facility] HEMATOLOGY PROFILES MCHC 31.2 g/dL 32.0 - 36.0 09/22 16:32 :00 [facility] HEMATOLOGY PROFILES RDW CV 17.4 % 11.9 - 15.5 09/22 16:32 :00 [facility] HEMATOLOGY PROFILES RDW SD 60.0 fL 36.4 - 46.3 09/22 16:32 :00 [facility] HEMATOLOGY PROFILES PLT 179 x10(9)/L 150 - 450 09/22 16:32 :00 [facility] HEMATOLOGY PROFILES MPV 10.8 8.0 - 12.0 09/22 16:32 :00 [facility] HEMATOLOGY PROFILES % Nucleated RBCs 0.0 % 09/22 16:32 :00 [facility] HEMATOLOGY PROFILES Absolute Nucleated RBCs 0.0 x10(9)/L 0.0 - 0.0 09/22 16:32 :00 Interpretive Data: Normal values not established in patients less than [address] [facility] HEMATOLOGY PROFILES % Neutrophils 87.0 % 09/22 16:32 :00 [facility] HEMATOLOGY PROFILES % Lymphocytes 8.2 % 09/22 16:32 :00 [facility] HEMATOLOGY PROFILES % Monocytes 3.6 % 09/22 16:32 :00 [facility] HEMATOLOGY PROFILES % Eosinophils 0.1 % 09/22 16:32 :00 [facility] HEMATOLOGY PROFILES % Basophils 0.1 % 09/22 16:32 :00 [facility] HEMATOLOGY PROFILES % Immature Granulocytes 1.00 % 0.02 - 0.42 09/22 16:32 :00 [facility] HEMATOLOGY PROFILES Absolute Granulocytes 7.31 x10(9)/L 1.70 - 7.00 09/22 16:32 :00 [facility] HEMATOLOGY PROFILES Abs Lymphocytes 0.69 x10(9)/L 0.90 - 2.90 09/22 16:32 :00 [facility] HEMATOLOGY PROFILES Abs Monocytes 0.30 x10(9)/L 0.30 - 0.90 09/22 16:32 :00 [facility] HEMATOLOGY PROFILES Abs Eosinophils 0.01 x10(9)/L 0.05 - 0.50 09/22 16:32 :00 [facility] HEMATOLOGY PROFILES Abs Basophils 0.01 x10(9)/L 0.00 - 0.30 09/22 16:32 :00 [facility] HEMATOLOGY PROFILES Abs Immature Granulocytes 0.08 x10(9)/L 0.00 - 0.03 09/22 16:32 :00 [facility] IMMUNOLOGY /VIROLOGY Hep B Surface Ag Nonreactiv e *NA* (09/23/23 11:32 AM) 09/22 16:32 :00 [facility] IMMUNOLOGY /VIROLOGY Hepatitis B Surface Ag Interpretati on Hepatitis B surface antigen was not detected. This does not exclude the possibilit y of exposure to, or infection with Hepatitis B Virus. 09/22 16:32 :00 [facility] IMMUNOLOGY /VIROLOGY Hep B Surface Kalee Nonreactiv e *NA* (09/23/23 11:32 AM) 09/22 16:32 :00 [facility] IMMUNOLOGY /VIROLOGY Hepatitis B Surface Ab Interpretati on Hepatitis B surface antibody not detected. Individual is considered not immune to infection with Hepatitis B Virus. 09/22 16:32 :00 [facility] IMMUNOLOGY /VIROLOGY Hep B Core Ab Nonreactiv e *NA* (09/23/23 11:32 AM) 09/22 16:32 :00 [facility] IMMUNOLOGY /VIROLOGY Hepatitis B Core Antibody Interpretati on Total antibodies to Hepatitis B Core were not detected. This does not exclude the possibilit y of exposure to, or infection with hepatitis. Levels of antibodies to hepatitis B core may be below the cut-off in early infection. 09/22 16:32 :00 [facility] IMMUNOLOGY /VIROLOGY Hep C Kalee by EIA Nonreactiv e *NA* (09/23/23 11:32 AM) 09/22 16:32 :00 [facility] IMMUNOLOGY /VIROLOGY Hepatitis C Antibody Interpretati on Antibodies to Hepatitis C were not detected. This does not exclude the possibilit y of prior exposure to, or infection with hepatitis. Levels of antibodies to hepatitis C may be below the cut-off in early infection. 09/22 16:32 :00 [facility] CHEMISTRY Intact PTH 329.0 pg/mL 15.0 - 65.0 09/22 16:32 :00 [facility] REFERENCE LABS EBV VCA IgM-[place] Negative 09/22 16:32 :00 [facility] REFERENCE LABS EBV VCA IgG-[place] Positive 09/22 16:32 :00 [facility] REFERENCE LABS EBV Nuclear Ag-[place] Positive 09/22 16:32 :00 [facility] REFERENCE LABS EBV Ab Interp-[place] See Comment 09/22 16:32 :00 Result Comment: [...] with EBV. Test Performed by: [facility] [address] [place] [address] Delivery Rn: Thomas Ron M.D. Ph.D.; CLIA# [id number] [facility] REFERENCE LABS HLA Anti-A Titer see scanned image 09/22 16:32 :00 [facility] XR Panorex XR Panorex XR [...] 09/23/23 11:59 09/22 11:02 :31 [facility] XR Chest XR Chest XR General Diagnostic [...] Report* * * Electronic ally Signed by: iMchele Campo MD Signed on: 09/23/23 12:57 09/22 11:02 :18 [facility] CT Kidney Stone Study CT Kidney Stone [...] ns were made: KIDNEYS AND COLLECTING SYSTEM: [place] right Kidney: Markedly atrophic. Too small to characteri ze parenchyma l hypodensit ies. Stable indetermin ate 1.1 cm mildly hyperdense lower pole lesion. Punctate nonobstruc ting calculus in the lower pole. No hydrourete ronephrosi s. [place] left Kidney: Markedly atrophic. Too small to [...] indetermin ate attenuatio n lesion in both [place] kidneys, which are incomplete ly evaluated. Punctate nonobstruc ting right [place] renal calculus. 3. Other chronic/in cidental findings as described above. I have personally reviewed the images and attest to the contents of this report. * * *Final Report* * * Electronic ally Signed by: Vinny VALENTINE, Estela Allison Signed on: 09/23/23 09:53 09/22 08:49 :33 [facility] Consultation Notes Results Value Date Source Op/Procedure [...] fashion. Surgical timeout was performed. A 22 Kyrgyz cystoscope with a 30 degree lens was [...] MARGUERITE CARCAMO Date of : 1955 UEI: [id number] Age: 68 year(s) Gender: Female Visit number: [id number] Procedure Information Procedure: Stress procedure: Echo Dobutamine [...] Disease. Procedure Staff Referring Physician: Abbey Nolasco Greenhouse Florist: Eula Davison RDCS Interpreting physician: Katy Gonzalez [...] MARGUERITE CARCAMO Date of : 1955 UEI: [id number] Age: 68 year(s) Gender: Female Visit number: [id number] Procedure Information Procedure: TTE procedure: Echo Transthoracic [...] Disease. Procedure Staff Referring Physician: Abbey Nolasco Greenhouse Florist: Eula Davison RDCS Interpreting physician: Katy Gonzalez [...] nephropathy, s/p renal transplant in 2007 @ [facility] where transplanted kidney eventually failed in 2021 [...] transplant kidney ureteral stent exchange. She gets [id number] stent exchanges for transplant kidney ureteral stricture. [...] nephropathy, s/p renal transplant in 2007 @ [facility] where transplanted kidney eventually failed in 2021 after COVID-19 infection, currently on in-center HD 3x week at [place], [place]. Additional PMHx includes anemia of chronic kidney disease, secondary hyperparathyroidism, hyperphosphatemia, hypertension, hyperlipidemia. She presents for cystoscopy with transplant kidney ureteral stent exchange. She gets [id number] stent exchanges for transplant kidney ureteral stricture. Plan: - to OR for transplant stent exchange. R/b/a discussed with the patient who voiced understanding. All questions answered. Procedural consent signed. 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 Heart Rate 75 bpm 05/24/2024 14:28:00 [facility] SBP NIBP 113 mm[Hg] 05/24/2024 14:28:00 [facility] DBP NIBP 66 mm[Hg] 05/24/2024 14:28:00 [facility] Temperature (Celsius) 35.8 Swathi 05/24/2024 14:28:00 [facility] Mean NIBP 78 mm[Hg] 05/24/2024 14:28:00 [facility] SpO2 94 % 05/24/2024 14:19:09 [facility] Heart Rate 73 bpm 05/24/2024 14:19:07 [facility] Respiratory Rate 18 breaths/min 05/24/2024 14:19:04 [facility] SBP NIBP 107 mm[Hg] 05/24/2024 14:15:00 [facility] DBP NIBP 61 mm[Hg] 05/24/2024 14:15:00 [facility] Mean NIBP 76 mm[Hg] 05/24/2024 14:15:00 [facility] SpO2 97 % 05/24/2024 14:14:38 [facility] Respiratory Rate 19 breaths/min 05/24/2024 14:14:37 [facility] Heart Rate 68 bpm 05/24/2024 14:14:25 [facility] Mean NIBP 83 mm[Hg] 05/24/2024 14:10:00 [facility] SBP NIBP 108 mm[Hg] 05/24/2024 14:10:00 [facility] DBP NIBP 69 mm[Hg] 05/24/2024 14:10:00 [facility] Heart Rate 70 bpm 05/24/2024 14:06:07 [facility] SpO2 94 % 05/24/2024 14:06:05 [facility] Respiratory Rate 14 breaths/min 05/24/2024 14:06:01 [facility] Mean NIBP 80 mm[Hg] 05/24/2024 14:05:00 [facility] SBP NIBP 104 mm[Hg] 05/24/2024 14:05:00 [facility] DBP NIBP 63 mm[Hg] 05/24/2024 14:05:00 [facility] Respiratory Rate 18 breaths/min 05/24/2024 14:03:33 [facility] Temperature (Celsius) 36.4 Swathi 05/24/2024 13:45:00 [facility] Weight (kg) 89.1 kg 05/24/2024 11:19:00 [facility] Temperature (Celsius) 36.3 Swathi 05/24/2024 11:19:00 [facility] Heart Rate 73 bpm 04/22/2024 [...] CLINICS Weight (kg) 91 kg 09/23/2023 14:35:00 [facility] Encounters Location Location Details Encounter Type Encounter Number Reason For Visit Attending Provider ADM Date DC Date Status Source [facility] Outpatient [id number] Labs [facility] 09/01 07:22 :00 09/01 23:59 :59 Discharge d [facility] Outpatient [id number] [facility] 09/22 13:40 :08 09/23 04:59 :[address] [facility] Outpatient [id number] [facility] 09/22 13:41 :35 09/23 04:59 :59 [facility] Surg Nephrology Clinic [id number] [facility] 09/22 17:44 :23 09/23 04:59 :59 [facility] Surg Nutrition Clinic [id number] [facility] 09/22 17:44 :46 09/23 04:59 :59 [facility] Surg Urology Clinic [id number] [facility] 09/22 17:45 :10 09/23 04:59 :59 [facility] Outpatient [id number] [facility] 10/05 16:08 :00 10/06 04:59 :59 [facility] Outpatient [id number] [facility] 10/26 11:24 :00 10/27 04:59 :59 [facility] Outpatient [id number] [facility] 12/24 14:04 :16 12/25 04:59 :59 [facility] [id number] Eder Gotti 12/24 18:12 :17 12/25 04:59 :59 [facility] Outpatient [id number] [facility] 01/06 13:16 :00 01/07 04:59 :59 [facility] Outpatient [id number] [facility] 02/08 11:32 :00 02/09 04:59 :59 [facility] Outpatient [id number] Raoul Locustdale 02/11 12:50 :00 02/12 04:59 :59 [facility] Outpatient [id number] Raoul [place]dale 04/05 15:43 :00 04/06 05:59 :59 [facility] Construction Services Technician Nephrology Clinic [id number] Prashanth Edward 04/22 15:52 :18 04/23 05:59 :59 [facility] Construction Services Technician Pulmonary N Environment al Med Between Visit [id number] 04/23 16:57 :16 04/24 05:59 :59 [facility] Construction Services Technician Nephrology Between Visit [id number] 04/26 15:16 :02 04/27 05:59 :59 [facility] Outpatient [id number] labs Raoul [place]dale 05/10 07:03 :00 05/10 23:59 :59 Active [facility] Day Surgery [id number] Raoul [place] 05/24 10:25 :03 05/24 15:14 :00 [facility] Nurse Phone Call Clinic [id number] Juan Emanuel 05/24 13:16 :21 05/25 05:59 :59 [facility] Construction Services Technician Pulmonary N Environment al Med Between Visit [id number] 05/31 18:04 :46 06/01 05:59 :59 [facility] Outpatient [id number] Raoul [place]dale 07/05 13:58 :00 07/06 04:59 :59 [facility] Construction Services Technician Nephrology Clinic [id number] Prashanth Edward 07/22 14:38 :38 07/23 04:59 :59 [facility] Procedures Procedure Code Date Perfomer Comments Source cholecystectomy [facility] Social History Social History Date Source No data available for this section 07/23/2024 [facility] No data available for this section 07/06/2024 [facility] No data available for this section 06[facility]01/2024 [facility] No data available for this section 05/25/2024 [facility] No data available for this section 05/24/2024 [facility] No data available for this section 04/27/2024 [facility] No data available for this section 04/24/2024 [facility] No data available for this section 04/23/2024 [facility] No data available for this section 04/06/2024 [facility] No data available for this section 02/13/2024 [facility] No data available for this section 02/10/2024 [facility] No data available for this section 01/08/2024 [facility] No data available for this section 12/26/2023 [facility] No data available for this section 10/28/2023 [facility] No data available for this section 10/07/2023 [facility] No data available for this section 09/24/2023 [facility]
--- OUTSIDE RECORDS SUMMARY | 2024-08-06 00:28 | XMS_ITS | Encounter Summary ---
Author Organization [facility] Address [address] [place] [address] Phone Care Team Providers Care Cut And Print Machine Operator Name Role Phone Nikkie Gordon MD Primary Care Provider [phone] Encounter Details Date Type Department Care Team (Late st Contact Info) Description 06/18/2019 Orders Only [facility] [address] [place] [address] Trisha Bustillos MA [address] [place] [address] Chronic kidney disease, stage 3 (moderate) ([facility]) Social History Tobacco Use Types Packs/Day Years [...] (moderate) documented in this encounter Care Teams Cut And Print Machine Operator Relationship Specialty Start Date End Date Nikkie Gordon MD [address] [place] [address] PCP - General 01/24/20 documented as of this encounter
--- OUTSIDE RECORDS SUMMARY | 2024-08-06 00:28 | XMS_ITS | Encounter Summary ---
Author Organization [facility] Address [address] [place] [address] Phone Care Team Providers Care Belt Weaver Name Role Phone Nikkie Gordon MD Primary Care Provider [phone] Encounter Details Date Type Department Care Team ([facility] Contact Info) Description 04/23/2019 Orders Only [facility]. [address] [place] [address] Trisha Bustillos MA [address] [place] [address] Chronic kidney disease, stage 3 (moderate) ([facility]) Social History Tobacco Use Types [...] (moderate) documented in this encounter Care Teams Belt Weaver Relationship Specialty Start Date End Date Nikkie Gordon MD [address] [place] [address] PCP - General 01/24/20 documented as of this encounter
--- OUTSIDE RECORDS SUMMARY | 2024-08-06 00:28 | XMS_ITS | Clinical Summary ---
Author Organization [facility] [address] Address [address] [place] [address] Care Team Providers Care Senior Manager Quality Assurance Name Role Phone Nikkie Gordon MD Primary Care Provider [phone] Nikkie Gorodn MD Unavailable [phone] Susan Jones MD Unavailable [phone] Kristian Ram MD Unavailable [phone] Chelo Herzog RN Unavailable [phone] Davidson Martinez MD Unavailable [phone] Tyson Bales MD Unavailable [phone] Kristian Ram MD Unavailable [phone] Anna Clarke MD Unavailable [phone] Allergies Active Allergy Reactions Criticality Noted [...] 03/01/2023 Assessment & Plan (03/02/2023 12:00 PM ART CONSULTANT): Body mass index is 34.15 kg/m . - discussed risks of obesity and association with chronic medical problems including HTN, DM, and NEREYDA - advised patient on importance of maintaining a diet and exercise regimen including cardiovascular and weight-bearing exercises - nutrition consultation Physical deconditioning 06/01/2021 Assessment & Plan (06/07/2021 2:29 PM ART CONSULTANT): Multifactorial but mostly driven by her neuropathy and malnutrition - PT/OT recommending SNF. Pt not amenable. - Home PT/OT with 24 hr supervision. States son can provide supervision. Assessment & Plan (06/06/2021 2:58 PM ART CONSULTANT): Multifactorial but mostly driven by her neuropathy -PT/OT recommending SNF. Pt not amenable. Assessment & Plan (06/05/2021 7:10 PM ART CONSULTANT): Multifactorial but mostly driven by her neuropathy -PT/OT recommending SNF, she is considering but may still elect to discharge home Assessment & Plan (06/04/2021 9:50 AM ART CONSULTANT): Multifactorial but mostly driven by her neuropathy -PT/OT recommending SNF, she is considering but may still elect to discharge home Assessment & Plan (06/03/2021 10:29 AM ART CONSULTANT): Multifactorial but mostly driven by her neuropathy -PT/OT recommending SNF, she is considering but may still elect to discharge home Assessment & Plan (06/02/2021 12:57 PM ART CONSULTANT): Multifactorial but mostly driven by her neuropathy -PT/OT recommending SNF, she is considering but may still elect to discharge home Assessment & Plan (06/01/2021 12:38 PM ART CONSULTANT): Multifactorial but mostly driven by her neuropathy -PT/OT recommending SNF, she is considering but may still elect to discharge home Pyelonephritis of transplanted kidney vs UTI 06/2021 Assessment & Plan (06/07/2021 2:25 PM ART CONSULTANT): Spiked temperature of 38.2 on 05/30 once [...] collection Assessment & Plan (06/06/2021 2:50 PM ART CONSULTANT): Spiked temperature of 38.2 on 05/30 once [...] ) Assessment & Plan (06/05/2021 7:14 PM ART CONSULTANT): Spiked temperature of 38.2 on 05/30 once [...] duration. Assessment & Plan (06/04/2021 9:51 AM ART CONSULTANT): Spiked temperature of 38.2 on 05/30 once [...] sample Assessment & Plan (06/03/2021 10:33 AM ART CONSULTANT): Spiked temperature of 38.2 on 05/30 once [...] cultures Assessment & Plan (06/02/2021 12:53 PM ART CONSULTANT): Spiked temperature of 38.2 on 05/30 once [...] resulting Assessment & Plan (06/01/2021 12:34 PM ART CONSULTANT): Spiked temperature of 38.2 on 05/30 once [...] cultures Assessment & Plan (05/31/2021 8:40 AM ART CONSULTANT): Spiked temperature overnight of 38.2 once scheduled [...] 05/28/2021 Assessment & Plan (06/06/2021 2:58 PM ART CONSULTANT): Poor appetite, encourage protein supplementations. Nutrition consult Assessment & Plan (06/05/2021 7:16 PM ART CONSULTANT): Poor appetite, encourage protein supplementations. Nutrition consult Assessment & Plan (06/04/2021 9:52 AM ART CONSULTANT): Poor appetite, encourage protein supplementations. Nutrition consult Assessment & Plan (06/03/2021 10:29 AM ART CONSULTANT): Poor appetite, encourage protein supplementations. Nutrition consult Assessment & Plan (06/02/2021 12:55 PM ART CONSULTANT): Poor appetite, encourage protein supplementations. Nutrition consult Assessment & Plan (06/01/2021 12:36 PM ART CONSULTANT): Poor appetite, encourage protein supplementations. Nutrition consult Assessment & Plan (05/31/2021 11:07 AM ART CONSULTANT): Poor appetite, encourage protein supplementations. Nutrition consult Assessment & Plan (05/30/2021 10:51 AM ART CONSULTANT): Poor appetite, encourage protein supplementations. Nutrition consult Assessment & Plan (05/29/2021 1:35 PM ART CONSULTANT): Poor appetite, encourage protein supplementations. Nutrition consult Leg pain, bilateral 05/26/2021 Assessment & Plan (06/07/2021 2:27 PM ART CONSULTANT): According to the patient, this began with [...] amenable. Assessment & Plan (06/06/2021 2:54 PM ART CONSULTANT): According to the patient, this began with [...] amenable. Assessment & Plan (06/05/2021 7:17 PM ART CONSULTANT): According to the patient, this began with [...] DVT Assessment & Plan (06/04/2021 9:49 AM ART CONSULTANT): According to the patient, this began with [...] DVT Assessment & Plan (06/03/2021 10:29 AM ART CONSULTANT): According to the patient, this began with [...] DVT Assessment & Plan (06/02/2021 1:01 PM ART CONSULTANT): According to the patient, this began with [...] DVT Assessment & Plan (06/01/2021 12:38 PM ART CONSULTANT): According to the patient, this began with [...] DVT Assessment & Plan (05/31/2021 11:07 AM ART CONSULTANT): According to the patient, this began with [...] DVT Assessment & Plan (05/30/2021 10:50 AM ART CONSULTANT): According to the patient, this began with [...] DVT Assessment & Plan (05/29/2021 1:33 PM ART CONSULTANT): According to the patient, this began with [...] DVT Assessment & Plan (05/28/2021 10:52 AM ART CONSULTANT): According to the patient, this began with [...] sciatica Assessment & Plan (05/27/2021 9:49 AM ART CONSULTANT): According to the patient, this began with swelling after her recent discharge from the hospital after Medications were changed (diuretics). Tramadol is effective for her. Will start with tramadol 25 mg TID prn. Monitor edema and sxs. Pt walks with walker, PT/OT evaluations Dopplers to r/o DVT s/p COVID Assessment & Plan (05/26/2021 5:26 PM ART CONSULTANT): According to the patient, this began with swelling after her recent discharge from the hospital after Medications were changed (diuretics). Tramadol is effective for her. Will start with tramadol 25 mg TID prn. Monitor edema and sxs. Pt walks with walker, PT/OT evaluations Pneumonia due to COVID-19 virus 05/10/2021 Assessment & Plan (05/15/2021 2:07 PM ART CONSULTANT): Symptom onset 05/02/21, positive test 05/09 at OSH (see care everywhere for confirmation) Cont O2, wean as able Cont decadron (d#1=05/10) Remdesivir continued w renal txp's blessing, s/p 5 days VTE ppx with SQ heparin Assessment & Plan (05/14/2021 3:22 PM ART CONSULTANT): Symptom onset 05/02/21, positive test 05/09 at OSH (see care everywhere for confirmation) Cont O2, wean as able Cont decadron (d#1=05/10) Remdesivir continued w renal txp's blessing, d#5 today VTE ppx with SQ heparin Assessment & Plan (05/13/2021 11:08 AM ART CONSULTANT): Symptom onset 05/02/21, positive test 05/09 at OSH (see care everywhere for confirmation) Cont O2, wean as able Cont decadron (d#1=05/10) Remdesivir continued w renal txp's blessing, d#4 today VTE ppx with SQ heparin Assessment & Plan (05/12/2021 12:01 PM ART CONSULTANT): Symptom onset 05/02/21, positive test 05/09 at OSH (see care everywhere for confirmation) Cont O2, wean as able Cont decadron (d#1=05/10) Remdesivir continued w renal txp's blessing, d#3 today VTE ppx with SQ heparin Assessment & Plan (05/11/2021 1:29 PM ART CONSULTANT): Onset of symptoms ~05/02/21 with worsening dyspnea, fatigue and progressive symptoms prompting presentation. Now on 5L supplemental oxygen. 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 RTO 12m. I will send the results to the portal. If she has not heard in a week, to call the office. Breast swelling 04/04/2021 Assessment & Plan (04/04/2021 3:20 PM ART CONSULTANT): She is s/p bx. I will look [...] 04/04/2021 Assessment & Plan (04/04/2021 3:20 PM ART CONSULTANT): The patient was encouraged to stop smoking. Techniques for smoking cessation were discussed to the patient's level of interest. Preoperative testing 11/09/2020 Hydrohepatosis 09/22/2020 Overview (09/22/2020): Added automatically from request for surgery [id number] Hypernatremia 08/05/2020 Assessment & Plan (08/05/2020 11:08 AM CDT): Due to Na bicarb drip ordered for correction of metabolic acidosis. - discontinue bicarb drip - will likely resolve, no need for further testing unless otherwise indicated Hydronephrosis, right 09/21/2019 Overview (09/21/2019): Added automatically from request for surgery [id number] Other proteinuria 05/05/2019 Obstruction of right ureter 02/19/2019 Overview (02/19/2019): Added automatically from request for surgery [id number] Obesity, Class II, BMI 35-39.9 01/29/2019 Assessment & Plan (05/27/2021 9:48 AM ART CONSULTANT): RD consult while here for diet education Pt has low appetite, not eating much Supplements ordered Assessment & Plan (05/26/2021 5:17 PM ART CONSULTANT): RD consult while here for diet education Hydronephrosis 12/11/2018 Overview (12/11/2018): Added automatically from request for surgery [id number] Uterine fibroid 12/02/2018 Assessment & Plan (12/05/2018 [...] 11/30/2018 Assessment & Plan (05/28/2021 10:50 AM ART CONSULTANT): Continue iron supplements Assessment & Plan (05/27/2021 9:47 AM ART CONSULTANT): Continue iron supplements Assessment & Plan (05/26/2021 5:18 PM ART CONSULTANT): Continue iron supplements Assessment & Plan (12/05/2018 [...] (11/27/2018): Added automatically from request for surgery [id number] Assessment & Plan (12/31/2023 9:55 AM CDT): [...] electives. Assessment & Plan (06/07/2021 2:28 PM ART CONSULTANT): History of ureteral obstruction from known fibroid and having ureteral exchanges every 3 months with urology (next scheduled on 06/06). - Urethral stent exchanged 06/05. - Follow up with urology outpatient Assessment & Plan (06/06/2021 2:53 PM ART CONSULTANT): History of ureteral obstruction from known fibroid and having ureteral exchanges every 3 months with urology (next scheduled on 06/06). - Urethral stent exchanged 06/05. Assessment & Plan (06/05/2021 7:15 PM ART CONSULTANT): History of ureteral obstruction from known fibroid and having ureteral exchanges every 3 months with urology (next scheduled on 06/06). - Urethral stent exchanged 06/05. Assessment & Plan (06/04/2021 9:47 AM ART CONSULTANT): History of ureteral obstruction from known fibroid and having ureteral exchanges every 3 months with urology (next scheduled on 06/06). -Discussed with urology here as her exchange is actually scheduled for [facility] on Fri and they are going to try and fit her on the OR schedule here -Will need to be NPO on Friday night Assessment & Plan (06/03/2021 10:28 AM ART CONSULTANT): History of ureteral obstruction from known fibroid and having ureteral exchanges every 3 months with urology (next scheduled on 06/06). Assessment & Plan (06/02/2021 12:53 PM ART CONSULTANT): History of ureteral obstruction from known fibroid and having ureteral exchanges every 3 months with urology (next scheduled on 06/06). Assessment & Plan (06/01/2021 12:35 PM ART CONSULTANT): History of ureteral obstruction from known fibroid and having ureteral exchanges every 3 months with urology (next scheduled on 06/06). Assessment & Plan (05/31/2021 11:06 AM ART CONSULTANT): History of ureteral obstruction from known fibroid and having ureteral exchanges every 3 months with urology (next scheduled on 06/06). Assessment & Plan (05/30/2021 10:48 AM ART CONSULTANT): History of ureteral obstruction from known fibroid and having ureteral exchanges every 3 months with urology (next scheduled on 06/06). Assessment & Plan (05/29/2021 1:31 PM ART CONSULTANT): History of ureteral obstruction from known fibroid and having ureteral exchanges every 3 months with urology (next scheduled on 06/06). Assessment & Plan (05/28/2021 10:50 AM ART CONSULTANT): ureteral obstruction from known fibroid and having ureteral exchanges every 3 months with urology (next scheduled on 06/06). Assessment & Plan (05/27/2021 9:47 AM ART CONSULTANT): ureteral obstruction from known fibroid and having ureteral exchanges every 3 months with urology (next scheduled on 06/06). Assessment & Plan (05/26/2021 5:16 PM ART CONSULTANT): ureteral obstruction from known fibroid and having [...] not think this is the case. - Principal System Software Engineer consulted for uterine fibroid - MRI Pelvis W/O contrast - Management of stent per urology. Assessment & Plan (11/29/2018 12:15 PM CDT): Renal U/S at OSH with hydronephrosis of transplanted kidney now s/p ureteral stent by urology 11/28. Found to have extrinsic compression of ureter from likely uterine fibroid. -Management of stent per urology. -Agree with non-emergent obstetrics gyn physician consult for management of fibroids. Hyperlipidemia, unspecified 11/27/2018 Assessment & Plan (03/02/2023 12:01 PM ART CONSULTANT): Continue patient's home atorvastatin 10 mg daily Hypertension, essential 11/27/2018 Assessment & Plan (05/14/2021 3:24 PM ART CONSULTANT): Continue home amlodipine, labetalol Assessment & Plan (05/10/2021 1:21 AM ART CONSULTANT): Continue home amlodipine, labetalol Assessment & Plan [...] 11/27/2018 Assessment & Plan (06/07/2021 2:27 PM ART CONSULTANT): S/p renal transplant (2007, b/l Cr 2.7-3.4) [...] 06/21. Assessment & Plan (06/06/2021 2:52 PM ART CONSULTANT): S/p renal transplant (2007, b/l Cr 2.7-3.4) [...] qday Assessment & Plan (06/05/2021 7:09 PM ART CONSULTANT): S/p renal transplant (2007, b/l Cr 2.7-3.4) [...] monitoring Assessment & Plan (06/04/2021 9:52 AM ART CONSULTANT): S/p renal transplant (2007, b/l Cr 2.7-3.4) [...] monitoring Assessment & Plan (06/03/2021 10:29 AM ART CONSULTANT): S/p renal transplant (2007, b/l Cr 2.7-3.4) [...] monitoring Assessment & Plan (06/02/2021 12:55 PM ART CONSULTANT): S/p renal transplant (2007, b/l Cr 2.7-3.4) [...] monitoring Assessment & Plan (06/01/2021 12:37 PM ART CONSULTANT): S/p renal transplant (2007, b/l Cr 2.7-3.4) [...] monitoring Assessment & Plan (05/31/2021 8:40 AM ART CONSULTANT): S/p renal transplant (2007, b/l Cr 2.7-3.4) [...] monitoring. Assessment & Plan (05/30/2021 10:52 AM ART CONSULTANT): S/p renal transplant (2007, b/l Cr 2.7-3.4) [...] monitoring. Assessment & Plan (05/29/2021 1:36 PM ART CONSULTANT): S/p renal transplant (2007, b/l Cr 2.7-3.4) [...] monitoring. Assessment & Plan (05/28/2021 10:53 AM ART CONSULTANT): s/p renal transplant (2007, b/l Cr 2.7-3.4) [...] following/managing Assessment & Plan (05/27/2021 9:46 AM ART CONSULTANT): s/p renal transplant (2007, b/l Cr 2.7-3.4) [...] following/managing Assessment & Plan (05/26/2021 5:11 PM ART CONSULTANT): s/p renal transplant (2007, b/l Cr 2.7-3.4) [...] following/managing Assessment & Plan (05/15/2021 2:07 PM ART CONSULTANT): ESRD 2/2 hypertensive nephrosclerosis s/p renal transplant (2007, b/l Cr 2.7- 3.4) Tacrolimus trough above goal, decreased dose 5mg bid Renal transplant service comanaging (nb home dose 9am/8pm) Home prednisone 5mg daily held while on dexamethasone Has been off myfortic (h/o bk/cmv viremia) Assessment & Plan (05/14/2021 3:22 PM ART CONSULTANT): ESRD 2/2 hypertensive nephrosclerosis s/p renal transplant (2007, b/l Cr 2.7- 3.4) Tacrolimus trough above goal, decreased dose 5mg bid Renal transplant service comanaging (nb home dose 9am/8pm) Home prednisone 5mg daily held while on dexamethasone Has been off myfortic (h/o bk/cmv viremia) Assessment & Plan (05/13/2021 11:09 AM ART CONSULTANT): ESRD 2/2 hypertensive nephrosclerosis s/p renal transplant (2007, b/l Cr 2.7- 3.4) Tacrolimus trough above goal, decreased dose 5mg bid Renal transplant service comanaging (nb home dose 9am/8pm) Home prednisone 5mg daily held while on dexamethasone Assessment & Plan (05/12/2021 12:01 PM ART CONSULTANT): ESRD 2/2 hypertensive nephrosclerosis s/p renal transplant [...] following Assessment & Plan (05/11/2021 1:16 PM ART CONSULTANT): ESRD 2/2 hypertensive nephrosclerosis s/p renal transplant [...] (12/05/2018 2:28 PM CDT): Renal transplant at [facility], followed now reportedly by Dr. Rome [...] with information in Care Everywhere from her blending machine operator. She has not seen Dr. Ram yet. She has had 3 no shows. - Recent Cr trends from Care Everywhere 07/25/18: 2.22 09/19/2018: 2.6 10/10/2018: 2.74 - Not on anti-metabolite due to BK virus per her transplant blending machine operator prior notes - Transplant nephrology following, mgmt of immunosuppression per their team - Continue prednisone - Tac increased to 7 mg BID. Tac goal 4-7 per notes - BMP and tac trough on Friday per Transplant nephrology, [facility] and have faxed to PCP, script provided - Discharge today. I have paged her primary blending machine operator office. I have faxed the d/c summary to her PCP as well. Assessment & Plan (12/04/2018 10:32 AM CDT): Renal transplant at [facility], followed now reportedly by Dr. Rome [...] with information in Care Everywhere from her blending machine operator. She has not seen Dr. Ram yet. She has had 3 no shows. - Recent Cr trends from Care Everywhere 07/25/18: 2.22 09/19/2018: 2.6 10/10/2018: 2.74 - Not on anti-metabolite due to BK virus per her transplant blending machine operator prior notes - Transplant nephrology following, mgmt of immunosuppression per their team - Continue prednisone - Tac increased to 7 mg BID. Tac goal 4-7 per notes - Further mgmt of MARIBELL per nephrology. Assessment & Plan (12/03/2018 10:35 AM CDT): Renal transplant at [facility], followed now reportedly by Dr. Rome Ram although his clinic stated she has not been seen there and has no showed the last 3 clinic appts. - Patient has a second chart - Ronan Moreira with information in Care Everywhere from her blending machine operator. She has not seen Dr. Ram [...] (12/02/2018 12:03 PM CDT): Renal transplant at [facility], followed now reportedly by Dr. Rome [...] (12/01/2018 5:23 PM CDT): Renal transplant at [facility], followed now by Dr. Rome Ram. Reported baseline cr 1.3 - Transplant nephrology following, mgmt of immunosuppression per their team - Tac level in AM (low today) - Attempting to obtain records from Dr. Ram Assessment & Plan (11/30/2018 5:38 PM CDT): Renal transplant at [facility], followed now by Dr. Rome Ram. Reported baseline cr 1.3 - Transplant nephrology following, mgmt of immunosuppression per their team Acute on chronic diastolic (congestive) heart fa ilure 11/27/2018 Assessment & Plan (06/07/2021 2:28 PM ART CONSULTANT): TTE (02/2021) with EF 70%, nl RV/LV size and systolic function and moderate pericardia effusion without collapse (managed conservatively with diuresis). -Repeat TTE with EF 70%, impaired relaxation and stable moderate pericardial effusion -Continue BP control and no signs of volume overload currently Assessment & Plan (06/06/2021 2:57 PM ART CONSULTANT): TTE (02/2021) with EF 70%, nl RV/LV size and systolic function and moderate pericardia effusion without collapse (managed conservatively with diuresis). -Repeat TTE with EF 70%, impaired relaxation and stable moderate pericardial effusion -Continue BP control and no signs of volume overload currently Assessment & Plan (06/05/2021 7:15 PM ART CONSULTANT): TTE (02/2021) with EF 70%, nl RV/LV size and systolic function and moderate pericardia effusion without collapse (managed conservatively with diuresis). -Repeat TTE with EF 70%, impaired relaxation and stable moderate pericardial effusion -Continue BP control and no signs of volume overload currently Assessment & Plan (06/04/2021 9:42 AM ART CONSULTANT): TTE (02/2021) with EF 70%, nl RV/LV size and systolic function and moderate pericardia effusion without collapse (managed conservatively with diuresis). -Repeat TTE with EF 70%, impaired relaxation and stable moderate pericardial effusion -Continue BP control and no signs of volume overload currently Assessment & Plan (06/03/2021 10:27 AM ART CONSULTANT): TTE (02/2021) with EF 70%, nl RV/LV size and systolic function and moderate pericardia effusion without collapse (managed conservatively with diuresis). -Repeat TTE with EF 70%, impaired relaxation and stable moderate pericardial effusion -Continue BP control and no signs of volume overload currently Assessment & Plan (06/02/2021 12:50 PM ART CONSULTANT): TTE (02/2021) with EF 70%, nl RV/LV size and systolic function and moderate pericardia effusion without collapse (managed conservatively with diuresis). -Repeat TTE with EF 70%, impaired relaxation and stable moderate pericardial effusion -Continue BP control and no signs of volume overload currently Assessment & Plan (06/01/2021 12:32 PM ART CONSULTANT): TTE (02/2021) with EF 70%, nl RV/LV size and systolic function and moderate pericardia effusion without collapse (managed conservatively with diuresis). -Repeat TTE with EF 70%, impaired relaxation and stable moderate pericardial effusion -Continue BP control and no signs of volume overload currently Assessment & Plan (05/31/2021 11:04 AM ART CONSULTANT): TTE (02/2021) with EF 70%, nl RV/LV size and systolic function and moderate pericardia effusion without collapse (managed conservatively with diuresis). -Repeat TTE with EF 70%, impaired relaxation and stable moderate pericardial effusion -Continue BP control and no signs of volume overload currently Assessment & Plan (05/30/2021 10:47 AM ART CONSULTANT): TTE (02/2021) with EF 70%, nl RV/LV size and systolic function and moderate pericardia effusion without collapse (managed conservatively with diuresis). -Repeat TTE with EF 70%, impaired relaxation and stable moderate pericardial effusion -Continue BP control and no signs of volume overload currently Assessment & Plan (05/29/2021 1:31 PM ART CONSULTANT): TTE (02/2021) with EF 70%, nl RV/LV size and systolic function and moderate pericardia effusion without collapse (managed conservatively with diuresis). -Repeat TTE with EF 70%, impaired relaxation and stable moderate pericardial effusion -Continue BP control and no signs of volume overload currently Assessment & Plan (05/28/2021 10:49 AM ART CONSULTANT): TTE (02/2021) with EF 70%, nl RV/LV size and systolic function and moderate pericardia effusion without collapse (managed conservatively with diuresis). Repeat TTE ordered Assessment & Plan (05/27/2021 9:46 AM ART CONSULTANT): TTE (02/2021) with EF 70%, nl RV/LV size and systolic function and moderate pericardia effusion without collapse (managed conservatively with diuresis). Repeat TTE ordered Assessment & Plan (05/26/2021 5:20 PM ART CONSULTANT): TTE (02/2021) with EF 70%, nl RV/LV [...] Do not think TTE or HILLARY would tire changer at this time but patient would [...] Do not think TTE or HILLARY would tire changer at this time but patient would [...] Do not think TTE or HILLARY would tire changer at this time but patient would likely benefit from cardiology input as outpatient. NEREYDA on CPAP 11/27/2018 Assessment & Plan (12/30/2023 11:11 PM CDT): Cont CPAP Assessment & Plan (06/07/2021 2:28 PM ART CONSULTANT): Pt uses home nightly CPAP Assessment & Plan (06/06/2021 2:58 PM ART CONSULTANT): Pt uses home nightly CPAP Assessment & Plan (06/05/2021 7:15 PM ART CONSULTANT): Pt uses home nightly CPAP Assessment & Plan (06/04/2021 9:49 AM ART CONSULTANT): Pt uses home nightly CPAP Assessment & Plan (06/03/2021 10:29 AM ART CONSULTANT): Pt uses home nightly CPAP Assessment & Plan (06/02/2021 12:54 PM ART CONSULTANT): Pt uses home nightly CPAP Assessment & Plan (06/01/2021 12:36 PM ART CONSULTANT): Pt uses home nightly CPAP Assessment & Plan (05/31/2021 11:07 AM ART CONSULTANT): Pt uses home nightly CPAP Assessment & Plan (05/30/2021 10:50 AM ART CONSULTANT): Pt uses home nightly CPAP Assessment & Plan (05/29/2021 1:34 PM ART CONSULTANT): Pt uses home nightly CPAP Assessment & Plan (05/28/2021 10:50 AM ART CONSULTANT): Pt uses home CPAP Assessment & Plan (05/27/2021 9:47 AM ART CONSULTANT): Pt uses home CPAP Assessment & Plan (05/26/2021 5:15 PM ART CONSULTANT): Pt uses home CPAP Assessment & Plan [...] HD Assessment & Plan (03/02/2023 11:59 AM ART CONSULTANT): No signs of exacerbation. Last TTE done [...] ETOH. Assessment & Plan (05/15/2021 2:07 PM ART CONSULTANT): Recent admission for pericardial effusion and volume overload. TTE with large pericardial effusion was seen by cardiology and thoracic surgery with plan for conservative management and diuresis Have not directly reimaged pericardial effusion thus far during admission Currently HDS, continue anti-hypertensives Holding Lasix as above Assessment & Plan (05/14/2021 3:23 PM ART CONSULTANT): Recent admission for pericardial effusion and volume overload. TTE with large pericardial effusion was seen by cardiology and thoracic surgery with plan for conservative management and diuresis Have not directly reimaged pericardial effusion thus far during admission Currently HDS, continue anti-hypertensives Holding Lasix as above Assessment & Plan (05/13/2021 11:09 AM ART CONSULTANT): Recent admission for pericardial effusion and volume overload. TTE with large pericardial effusion was seen by cardiology and thoracic surgery with plan for conservative management and diuresis -currently HDS, continue anti-hypertensives -holding diuretics as elsewhere Assessment & Plan (05/12/2021 12:01 PM ART CONSULTANT): Recent admission for pericardial effusion and volume overload. TTE with large pericardial effusion was seen by cardiology and thoracic surgery with plan for conservative management and diuresis -currently HDS, continue anti-hypertensives -holding diuretics as elsewhere Assessment & Plan (05/11/2021 1:14 PM ART CONSULTANT): Recent admission for pericardial effusion and volume [...] PM CDT): Patient's s/p DDKT at the [facility] in 2007. Of note patient has also been followed at [place], but most recently continues to follow her care at [facility] since 2016. -Cr somewhat improved with thoams catheter placement. Urology c/s; per their recommendations, d/c and attempt void trial. -Patient diuresed with 40 Lasix d/t volume overload, SOB; UOP 3.6L -BK pending, CMV and HLA negative -Thought to be d/t new diagnosis of heart failure Assessment & Plan (10/26/2018 6:35 PM CDT): Patient's s/p DDKT at the [facility] in 2007. Of note patient has also been followed at [facility], but most recently continues to follow her care at [facility] since 2016. -Patient recently admitted in 08/2018 d/t MARIBELL, baseline Cr was 1.2-1.4 until 06/2018 where it has been found to be 2.2-2.8. She was evaluated by urology who recommended IR c/s; and the patient left the hospital AMA -She re-presents to [facility] 10/25 with MARIBELL, BLE edema, and SOB. [...] 10/25/2018 Assessment & Plan (03/02/2023 11:59 AM ART CONSULTANT): Likely secondary to ESRD. Continue as planned under the ESRD - continue IV iron supplements q 2 weeks. - EPO 48228 units IV t.i.d. Friday on days not getting hemodialysis - CBC daily Assessment & Plan (06/07/2021 2:27 PM ART CONSULTANT): Hgb on admission related to anemia of [...] bleed Assessment & Plan (06/05/2021 7:09 PM ART CONSULTANT): Hgb on admission related to anemia of [...] bleed Assessment & Plan (06/04/2021 9:42 AM ART CONSULTANT): Hgb on admission related to anemia of [...] bleed Assessment & Plan (06/03/2021 10:27 AM ART CONSULTANT): Hgb on admission related to anemia of [...] bleed Assessment & Plan (06/02/2021 12:50 PM ART CONSULTANT): Hgb on admission related to anemia of [...] bleed Assessment & Plan (06/01/2021 12:32 PM ART CONSULTANT): Hgb on admission related to anemia of [...] bleed Assessment & Plan (05/31/2021 11:04 AM ART CONSULTANT): Hgb on admission related to anemia of [...] AM Assessment & Plan (05/30/2021 10:45 AM ART CONSULTANT): Hgb on admission related to anemia of CKD as well as component of HERNANDEZ. Baseline Hgb ~8 - Hgb matteo of 6.3 and s/p 1 unit PRBCs with improvement to ~7 since - Continue iron supplements - No signs/symptoms of bleeding, continue to monitor & transfuse Hgb <7 - Repeat iron panel/ferritin with AM labs Assessment & Plan (05/29/2021 1:29 PM ART CONSULTANT): Hgb on admission related to anemia of CKD as well as component of HERNANDEZ. Baseline Hgb ~8 - Hgb matteo of 6.3 and s/p 1 unit PRBCs with improvement to ~7 since - Continue iron supplements - No signs/symptoms of bleeding, continue to monitor & transfuse Hgb <7 Assessment & Plan (05/28/2021 10:50 AM ART CONSULTANT): S/p 1 unit pRBCs 05/26 Recent Labs Lab Units 05/28/21 0519 05/27/21 0433 05/26/21 1308 HEMOGLOBIN g/dL 7.7* 7.7* 7.7* Transfuse prn to keep Hgb>7 Anemia of chronic disease Hgb on admission related to anemia of CKD as well as component of HERNANDEZ. -continue iron supplements Assessment & Plan (05/27/2021 9:47 AM ART CONSULTANT): S/p 1 unit pRBCs 05/26 Recent Labs Lab Units 05/27/21 0433 05/26/21 1308 05/26/21 0415 HEMOGLOBIN g/dL 7.7* 7.7* 6.3* Transfuse prn to keep Hgb>7 Anemia of chronic disease Hgb on admission related to anemia of CKD as well as component of HERNANDEZ. -continue iron supplements Assessment & Plan (05/26/2021 5:15 PM ART CONSULTANT): S/p 1 unit pRBCs 05/26 Recent Labs Lab Units 05/26/21 1308 05/26/21 0415 HEMOGLOBIN g/dL 7.7* 6.3* Transfuse prn to keep Hgb>7 Anemia of chronic disease Hgb on admission related to anemia of CKD as well as component of HERNANDEZ. -continue iron supplements Assessment & Plan (05/14/2021 3:24 PM ART CONSULTANT): Hgb 9.2. Baseline ~8-9 related to anemia of CKD as well as component of HERNANDEZ. -continue iron supplements Assessment & Plan (05/10/2021 1:19 AM ART CONSULTANT): Hgb 9.2. Baseline ~8-9 related to anemia [...] has heart failure, which is likely a stake driver of her volume overload. Plan - [...] 11:39 AM CDT): -s/p DDKT 2007 at [facility] -Immunosuppression: cont tacrolimus 7mg QAM/6mg QPM, prednisone 5. She states she has not been on CellCept or Myfortic since 2007 or 2008. - Renal transplant in agreement with d/c today - Tac trough adequate Assessment & Plan (10/27/2018 4:48 PM CDT): -s/p DDKT 2007 at [facility] -Immunosuppression: cont tacrolimus 7mg QAM/6mg QPM, prednisone 5. She states she has not been on CellCept or Myfortic since 2007 or 2008. - Check tac trough - Followed by renal transplant service Assessment & Plan (10/26/2018 2:45 PM CDT): -s/p DDKT 2007 at [facility] -Immunosuppression: cont tacrolimus 7mg QAM/6mg QPM, prednisone 5. She states she has not been on CellCept or Myfortic since 2007 or 2008. - Check tac trough - Followed by renal transplant service Assessment & Plan (10/25/2018 3:31 AM CDT): -s/p DDKT 2007 at [facility] -Immunosuppression: cont tacrolimus 7mg QAM/6mg QPM, [...] 04/21/2023 Assessment & Plan (03/02/2023 11:58 AM ART CONSULTANT): Pt was not able to get HD 03/01/23 due to verbal altercation at HD center. She presented to [facility] for urgent HD which she tolerated. SW on consult to help find additional facility. Per EMR Hx of Kidney transplant for ESRD in the setting of HTN 2009 preformed at [facility]. Her transplant unfortunately failed due to [...] being evaluated for additional kidney transplant at [facility]. Left radiocephalic AV fistula, per vascular team Fistula duplex needed in future and will probably warrant fistulogram. - Continue EPO, calcitriol, folic acid, IV iron q2 weeks, - HD today per nephrology, Friday and Friday - SW Consult to help with alternative HD arrangement, Pt would like to be seen at [facility]. - Continue tacrolimus with trough levels as needed, Prednisone 5mg daily. - Lokelma as needed for HyperK - Daily CBC, CMP, mag, phos - Kidney Imaging as needed. - Avoid nephrotoxic drugs - Nephrology following appreciate recs. - Follow up with transplant team at [facility] on discharge for continued workup for kidney transplant. Constipation 05/31/2021 03/03/2023 Assessment & Plan (03/02/2023 12:00 PM ART CONSULTANT): Patient reports chronic constipation and has not have a bowel movement since Friday. Abdominal x-ray showed mild to moderate amount of stool in colon and no obstructive bowel pattern noted. Patient has allergy to MiraLax and Dulcolax base which cause muscle pain. - s/p x2 lactulose will continue as needed to help with BM. - Dulcolax daily Assessment & Plan (06/01/2021 12:32 PM ART CONSULTANT): Now resolved, will discontinue lactulose and continue PRN meds Assessment & Plan (05/31/2021 11:05 AM ART CONSULTANT): Reports no bowel movement since 05/27 -Will start lactulose BID today (miralax allergy) and continue scheduled docusate-senna -If no BM by this evening then can use PRN suppository that's ordered History of COVID-19 05/29/2021 06/05/19 Assessment & Plan (06/04/2021 9:42 AM ART CONSULTANT): Positive on 05/10/21 during prior admission and briefly required O2 at that time, but was weaned off prior to discharge. S/p remdesivir and dexamethasone during that admit. Stable on room air this admission and now COVID recovered Assessment & Plan (06/03/2021 10:28 AM ART CONSULTANT): Positive on 05/10/21 during prior admission and briefly required O2 at that time, but was weaned off prior to discharge. S/p remdesivir and dexamethasone during that admit. Stable on room air this admission and now COVID recovered Assessment & Plan (06/02/2021 1:01 PM ART CONSULTANT): Positive on 05/10/21 during prior admission and briefly required O2 at that time, but was weaned off prior to discharge. S/p remdesivir and dexamethasone during that admit -Stable on room air this admission and now COVID recovered Assessment & Plan (06/01/2021 12:35 PM ART CONSULTANT): -Positive on 05/10/21 during prior admission and [...] today Assessment & Plan (05/31/2021 11:06 AM ART CONSULTANT): -Positive on 05/10/21 during prior admission and [...] now Assessment & Plan (05/30/2021 10:48 AM ART CONSULTANT): -Positive on 05/10/21 during prior admission and [...] 3 Assessment & Plan (05/31/2021 11:02 AM ART CONSULTANT): Now resolved, secondary to MARIBELL on CKD, K of 7.9 w/ EKG changes on admit - S/p iHD overnight 05/25- and has been off SYSTEMATIC THEOLOGY PROFESSOR since 05/26 and making good urine - K continues to remain normal - Lokelma has been discontinued Assessment & Plan (05/30/2021 10:43 AM ART CONSULTANT): Now resolved, secondary to MARIBELL on CKD, K of 7.9 w/ EKG changes on admit - S/p iHD overnight and has been off SYSTEMATIC THEOLOGY PROFESSOR since 05/26 and making good urine - K continues to remain normal - Lokelma was discontinued Assessment & Plan (05/29/2021 1:22 PM ART CONSULTANT): Secondary to MARIBELL on CKD, K of 7.9 w/ EKG changes in am at OSH. S/p temporization prior to transfer - S/p iHD overnight and has been off SYSTEMATIC THEOLOGY PROFESSOR since 05/26 and making good urine - K normal at 4.6, Lokelma has been held - Will monitor closely for iHD needs. Assessment & Plan (05/28/2021 10:51 AM ART CONSULTANT): - Noted 7.9 w/ EKG changes in am at OSH. - S/p medical temporization with 6.9 upon d/c from OSH to [facility]. - K now down to 5.8 s/p temporization but overnight went upto 6.8. - S/p iHD overnight 05/25- - Will monitor closely for iHD needs. - Monitor closely. Assessment & Plan (05/27/2021 9:49 AM ART CONSULTANT): - Noted 7.9 w/ EKG changes in am at OSH. - S/p medical temporization with 6.9 upon d/c from OSH to H. - K now down to 5.8 s/p temporization but overnight went upto 6.8. - S/p iHD overnight 05/25- - Will monitor closely for iHD needs. - Monitor closely. Assessment & Plan (05/26/2021 5:07 PM ART CONSULTANT): - Noted 7.9 w/ EKG changes in am at OSH. - S/p medical temporization with 6.9 upon d/c from OSH to H. - K now down to 5.8 s/p temporization but overnight went upto 6.8. - S/p iHD overnight. - Will monitor closely for iHD needs. - Monitor closely. Renal lesion 05/12/2021 06/03/2021 Assessment & Plan (06/02/2021 12:57 PM ART CONSULTANT): Admission UA was negative for infection and [...] drainage/sampling Assessment & Plan (05/30/2021 10:51 AM ART CONSULTANT): Per sign-out, patient does not have complicated [...] UA Assessment & Plan (05/29/2021 1:34 PM ART CONSULTANT): Per sign-out, patient does not have complicated UTI symptoms or evidence of infection on UA. However, Renal Transplant with duplex 05/25 showed no NENITA but new mild hydro and focal heterogenous echogenic area concerning for developing abscess. Pt had no sxs of dysuria; renal tx team has low suspicion for UTI Urine is clear/light 05/27 Assessment & Plan (05/28/2021 10:49 AM ART CONSULTANT): Per sign-out, patient does not have complicated UTI symptoms or evidence of infection on UA. However, Renal Transplant with duplex 05/25 showed no NENITA but new mild hydro and focal heterogenous echogenic area concerning for developing abscess. Pt had no sxs of dysuria; renal tx team has low suspicion for UTI Urine is clear/light 05/27 Assessment & Plan (05/27/2021 9:47 AM ART CONSULTANT): Per sign-out, patient does not have complicated UTI symptoms or evidence of infection on UA. However, Renal Transplant with duplex 05/25 showed no NENITA but new mild hydro and focal heterogenous echogenic area concerning for developing abscess. Pt had no sxs of dysuria; renal tx team has low suspicion for UTI Urine is clear/light 05/27 Assessment & Plan (05/26/2021 5:23 PM ART CONSULTANT): Per sign-out, patient does not have complicated UTI symptoms or evidence of infection on UA. However, Renal Transplant with duplex 05/25 showed no NENITA but new mild hydro and focal heterogenous echogenic area concerning for developing abscess. No Urine culture found this admission. Will order. Assessment & Plan (05/14/2021 3:22 PM ART CONSULTANT): Pyuria at osh, no culture data available S/p empiric rx with ceftriaxone out of abundance of caution, finished Assessment & Plan (05/13/2021 11:09 AM ART CONSULTANT): Pyuria at osh, no culture data available On empiric rx with ceftriaxone Culture here no growth but has been on abx Plan to finish course of therapy, abx d#4 today Assessment & Plan (05/12/2021 12:04 PM ART CONSULTANT): Pyuria at osh, no culture data available On empiric rx with ceftriaxone Culture here no growth but has been on abx Plan to finish course of therapy, abx d#3 today Pericardial effusion 02/28/2021 022 Assessment & Plan (06/04/2021 9:50 AM ART CONSULTANT): TTE (02/2021) with EF 70%, nl RV/LV [...] compromise Assessment & Plan (06/01/2021 12:36 PM ART CONSULTANT): TTE (02/2021) with EF 70%, nl RV/LV [...] compromise Assessment & Plan (05/31/2021 11:07 AM ART CONSULTANT): TTE (02/2021) with EF 70%, nl RV/LV [...] compromise Assessment & Plan (05/30/2021 10:51 AM ART CONSULTANT): TTE (02/2021) with EF 70%, nl RV/LV [...] compromise Assessment & Plan (05/29/2021 1:37 PM ART CONSULTANT): TTE (02/2021) with EF 70%, nl RV/LV [...] compromise Assessment & Plan (05/28/2021 10:49 AM ART CONSULTANT): TTE (02/2021) with EF 70%, nl RV/LV [...] ordered Assessment & Plan (05/27/2021 9:48 AM ART CONSULTANT): TTE (02/2021) with EF 70%, nl RV/LV [...] ordered Assessment & Plan (05/26/2021 5:19 PM ART CONSULTANT): TTE (02/2021) with EF 70%, nl RV/LV [...] injury superimp osed on chronic kidney disease ([facility]/HCC) 10/25/2018 06/07/2021 Assessment & Plan (06/07/2021 2:26 PM ART CONSULTANT): History of ESRD 2/2 hypertensive nephrosclerosis s/p [...] downtrend Assessment & Plan (06/06/2021 2:51 PM ART CONSULTANT): History of ESRD 2/2 hypertensive nephrosclerosis s/p [...] baseline Assessment & Plan (06/05/2021 7:08 PM ART CONSULTANT): History of ESRD 2/2 hypertensive nephrosclerosis s/p [...] baseline Assessment & Plan (06/04/2021 9:42 AM ART CONSULTANT): History of ESRD 2/2 hypertensive nephrosclerosis s/p [...] baseline Assessment & Plan (06/03/2021 10:26 AM ART CONSULTANT): History of ESRD 2/2 hypertensive nephrosclerosis s/p [...] baseline Assessment & Plan (06/02/2021 1:00 PM ART CONSULTANT): History of ESRD 2/2 hypertensive nephrosclerosis s/p [...] now Assessment & Plan (06/01/2021 12:30 PM ART CONSULTANT): History of ESRD 2/2 hypertensive nephrosclerosis s/p [...] today Assessment & Plan (05/31/2021 11:03 AM ART CONSULTANT): History of ESRD 2/2 hypertensive nephrosclerosis s/p [...] BMP Assessment & Plan (05/30/2021 10:44 AM ART CONSULTANT): History of ESRD 2/2 hypertensive nephrosclerosis s/p [...] yesterday Assessment & Plan (05/29/2021 1:27 PM ART CONSULTANT): History of ESRD 2/2 hypertensive nephrosclerosis s/p [...] yesterday Assessment & Plan (05/28/2021 10:48 AM ART CONSULTANT): 65F with history of ESRD 2/2 hypertensive nephrosclerosis s/p renal transplant (2007, b/l Cr 2.7-3.4), anemia of CKD, NEREYDA on CPAP, HFpEF transferred from OSH to [facility] for acute kidney failure and hyperkalemia. s/p [...] 2.62* Assessment & Plan (05/27/2021 9:45 AM ART CONSULTANT): 65F with history of ESRD 2/2 hypertensive nephrosclerosis s/p renal transplant (2007, b/l Cr 2.7-3.4), anemia of CKD, NEREYDA on CPAP, HFpEF transferred from OSH to [facility] for acute kidney failure and hyperkalemia. s/p [...] pending. Assessment & Plan (05/26/2021 5:06 PM ART CONSULTANT): 65F with history of ESRD 2/2 hypertensive nephrosclerosis s/p renal transplant (2007, b/l Cr 2.7-3.4), anemia of CKD, NEREYDA on CPAP, HFpEF transferred from OSH to [facility] for acute kidney failure and hyperkalemia. s/p [...] pending. Assessment & Plan (05/15/2021 2:07 PM ART CONSULTANT): Admit creatinine 6.1, baseline 2.7-3.4 in recent [...] dosing Assessment & Plan (05/14/2021 3:21 PM ART CONSULTANT): Admit creatinine 6.1, baseline 2.7-3.4 in recent [...] dosing Assessment & Plan (05/13/2021 11:07 AM ART CONSULTANT): Admit creatinine 6.1, baseline 2.7-3.4 in recent [...] tacro Assessment & Plan (05/12/2021 11:57 AM ART CONSULTANT): Admit creatinine 6.1, baseline 2.7-3.4 in recent months Noted 6-7 days poor intake prior to arrival Some improvement thus far w fluids Still poor intake CMV neg Metabolic acidosis worsening in spite of oral bicarb Plan small fluids/bicarb infusion today, cont oral bicarb Monitor response w repeat BMP in AM Assessment & Plan (05/11/2021 1:29 PM ART CONSULTANT): Baseline Cr 2.7-3.4. On admission at OSH [...] to 2.8 since June 2018. Ultrasound at [facility] on 08/26 showed severe hydronephrosis of [...] 04/21/2023 Assessment & Plan (03/02/2023 11:58 AM ART CONSULTANT): Blood pressure is controlled - continue amlodipine 10 mg daily, labetalol 200 mg t.i.d., Lasix 40 mg b.i.d.. Assessment & Plan (06/07/2021 2:27 PM ART CONSULTANT): - Continue home amlodipine & labetalol Assessment & Plan (06/06/2021 2:53 PM ART CONSULTANT): - Continue home amlodipine & labetalol Assessment & Plan (06/05/2021 7:09 PM ART CONSULTANT): - Continue home amlodipine & labetalol Assessment & Plan (06/04/2021 9:48 AM ART CONSULTANT): Restarted home Amlodipine & Labetalol, blood pressure within goal Assessment & Plan (06/03/2021 10:28 AM ART CONSULTANT): Restarted home Amlodipine & Labetalol, blood pressure within goal Assessment & Plan (06/02/2021 12:53 PM ART CONSULTANT): Improving BP -Restarted home Amlodipine & Labetalol Assessment & Plan (06/01/2021 12:35 PM ART CONSULTANT): Improving BP -Restarted home Amlodipine & Labetalol Assessment & Plan (05/31/2021 11:06 AM ART CONSULTANT): Improving BP -Restarted home Amlodipine yesterday and will resume home Labetalol today Assessment & Plan (05/30/2021 10:49 AM ART CONSULTANT): Currently BP at goal and has improved -Will restart home Amlodipine 10 mg qday today and continue to hold Labetolol for now Assessment & Plan (05/29/2021 1:32 PM ART CONSULTANT): Currently BP at goal -Labetolol and amlodipine both on hold due to softer pressures on admit, resume as tolerated Assessment & Plan (05/28/2021 10:50 AM ART CONSULTANT): Currently, BP near goal Labetolol and amlodipine both on hold monitor and titrate meds. BP at goal 05/27, 05/28 Assessment & Plan (05/27/2021 9:47 AM ART CONSULTANT): Currently, BP near goal Labetolol and amlodipine both on hold monitor and titrate meds. BP at goal 05/27 Assessment & Plan (05/26/2021 5:13 PM ART CONSULTANT): Currently, BP near goal Labetolol and amlodipine [...] 04/21/2023 Assessment & Plan (03/02/2023 12:00 PM ART CONSULTANT): Will continue home CPAP. Assessment & Plan (05/14/2021 3:23 PM ART CONSULTANT): Continue home CPAP (though has been using O2 instead) Assessment & Plan (05/10/2021 1:21 AM ART CONSULTANT): Continue home CPAP Assessment & Plan (10/26/2018 [...] order CPAP if patient willing to use. MARIBLEL (acute kidney injury) 08/26/2018 Overview (03/23/2019): TXP [...] Department Care Team Description 07/20/2024 Orders Only [facility] Nephrology [address] [place] [address] [place] [address] Bruce Justice MD 06/15/2024 Orders Only [facility] Nephrology [address] [place] [address] [place] [address] Bruce Justice MD 05/27/2024 Telephone [facility] Urology [address] [place] [address] Suha Marks LPN 05/26/2024 Telephone [facility] Urology [facility] [place] [address] Suha Marks LPN 05/24/2024 5:50 PM ART CONSULTANT Anesthesia Event [facility] Operating [address] [place] [address] Sloan Osborn MD Heuvelman, Katherine Marie, NP 05/11/2024 Orders Only [facility] Nephrology [address] [place] [address] [place] [address] Bruce Justice MD from Last 3 Months [...] s/ p transplant/ Dialysis Fri//Sat [facility] in [place], [place] Ureteral obstruction, right Hypertension Chronic kidney [...] drink = 0.6 oz pur e alcohol) [facility] Utilities Answer Date Recorded In the past 12 months has e [employer], gas, oil, or water [employer] threatened to shut off services in your [...] How often do you attend scientology or holiness serv ices? Patient declined 01/01/2024 Do you belong to any clubs o r organizations such as scientology groups, unions, fraTrailerpop or athletic groups, or school groups? Patient [...] place to sleep or slept in a usp (including now)? No 04/23/2023 Housing Stability Vital [...] time in the past 12 m [facility], were you homeless or living in a usp (including now)? Patient declined 01/01/2024 Personal Safety [...] 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, MEDICAL RECORD SPECIALIST, ENRRIQUE) 03/03/2023 Comments No Sex and Gender Information Value Date Recorded Sex Assigned at Not on file Legal Sex Female 1:10 PM ART CONSULTANT Gender Identity Not on file Sexual Orientation [...] 87.1 kg (192 lb) 05/05/2024 3:16 PM ART CONSULTANT Height 162.6 cm (5' 4 ) 05/05/2024 3:16 PM ART CONSULTANT Body Mass Index 32.96 05/05/2024 3:16 PM ART CONSULTANT Plan of Treatment Health Maintenance Due Date [...] history exists Medical Devices Implanted Type Area Truck Guard Device Identifier Shelf Expiration Date Model / Serial / Lot [employer] Universa 6fr 24cm Radiopaque Graduate Firm Monofilament Tether [id number] - Sn/A - [id number] Implanted:Qty: 1 on 05/08/2022 by Timi Hernandez MD at [facility] Stent Right: Ureter [employer] 02/15/2025 [id number] / N/A / [id number] [employer] Universa 6fr 24cm Radiopaque Graduate Firm Monofilament Tether [id number] - [id number] Implanted:Qty: 1 on 08/14/2022 by Timi Hernandez MD at [facility] Stent Right: Ureter [employer] 12/19/2024 [id number] / / [id number] [employer] Stent Ureteral Set Double Pigtail Radiopaque Tip Universa [id number] Polyurethane Hydrophilic Coated [id number] - [id number] Implanted:Qty: 1 on 09/03/2023 at [facility] Right: Ureter [employer] 10/16/2025 [id number] / / [id number] [employer] Stent Ureteral Set Double Pigtail Radiopaque Tip Universa [id number] Polyurethane Hydrophilic Coated [id number] - [id number] Implanted:Qty: 1 on 01/21/2024 at [facility] Right: Ureter [employer] 07/02/2024 [id number] / / [id number] Explanted Type Area Truck Guard Device Identifier Shelf Expiration Date Model / Serial / Lot [employer] Maddi [id number] 4.8fr 14cm Taper Tip Bladder Raoul Low Profile Large Inner Lumen Latex Free - [id number] Implanted:Qty: 1 on 11/28/2018 by Timi Hernandez MD at [facility] Explanted:Qty: 1 on 02/08/2019 by Ricardo Pineda MD at [facility] Stent N/A: Ureter [employer] Maddi [id number] 07/15/2019 [id number] / / [id number] Description:Transplant kidne y ureter; stent intact [employer] Maddi [id number] 4.8fr 14cm Taper Tip Bladder Raoul Low Profile Large Inner Lumen Latex Free - [id number] - [id number] Implanted:Qty: 1 on 02/08/2019 by Ricardo Pineda MD at [facility] Explanted:Qty: 1 on 05/03/2019 by Blaire Miller MD at [facility] Stent Right: Ureter [employer] Maddi 06/18/2020 [id number] / [id number] / [employer] Maddi [id number] 4.8fr 14cm Taper Tip Bladder Raoul Low Profile Large Inner Lumen Latex Free - [id number] Implanted:Qty: 1 on 05/03/2019 by Blaire Miller MD at [facility] Explanted:Qty: 1 on 09/13/2019 by Timi Hernandez MD at [facility] Stent Ureter [employer] Maddi [id number] 08/09/2021 [id number] / / [id number] [employer] [id number] Inlay [place] 4.7fr 14cm Pusher Fluoro Marker Atraumatic Insertion Latex Free - [id number] Implanted:Qty: 1 on 03/08/2020 by Timi Hernandez MD at [facility] Explanted:Qty: 1 on 01/31/2021 by Timi Hernandez MD at [facility] Stent Right: Ureter [employer] 11/27/2021 [id number] / / [id number] [employer] [id number] Set Stent 14cm 4.7fr [place] Mandril Small 2 Pigtail Curve - [id number] - [id number] Implanted:Qty: 1 on 08/23/2020 by Timi Hernandez MD at [facility] Explanted:Qty: 1 on 01/31/2021 by Timi Hernandez MD at [facility] Stent Right: Ureter [employer] 05/23/2023 [id number] / [id number] / [id number] [employer] [id number] Set Stent 14cm 4.7fr [place] Mandril Small 2 Pigtail Curve - [id number] Implanted:Qty: 1 on 11/15/2020 by Timi Hernandez MD at [facility] Explanted:Qty: 1 on 01/31/2021 by Timi Hernandez MD at [facility] Stent Right: Ureter [employer] 09/20/2023 [id number] / / [id number] [employer] [id number] Inlay [place] 6fr 24cm Pusher Fluoro Marker Atraumatic Insertion Latex Free - [id number] Implanted:Qty: 1 on 06/05/2021 by Gary Urban MD at [facility] Explanted:Qty: 1 on 11/14/2021 by Timi Hernandez MD at [facility] Stent Right: Ureter [employer] [id number] 10/24/2025 [id number] / / [id number] [employer] Universa 6fr 24cm Radiopaque Graduate [employer]ether [id number] - [id number] Implanted:Qty: 1 on 11/14/2021 by Timi Hernandez MD at [facility] Explanted:Qty: 1 on 02/13/2022 at [facility] Stent Right: Ureter [employer] 07/19/2024 [id number] / / [id number] [employer] Universa 6fr 24cm Radiopaque Graduate [employer]ether [id number] - [id number] Implanted:Qty: 1 on 02/13/2022 by Timi Hernandez MD at [facility] Explanted:Qty: 1 on 05/08/2022 by Timi Hernandez MD at [facility] Stent [employer] 10/08/2024 [id number] / / [id number] [employer] Universa 6fr 20cm Radiopaque Positioner Monofilament Tether 2 F50336 - [id number] - [id number] Implanted:Qty: 1 on 11/06/2022 by Timi Hernandez MD at [facility] Explanted:Qty: 1 on 03/17/2023 by Carson Gatica DO at [facility] Stent Right: Ureter [employer] 02/18/2025 [id number] / [id number] / [id number] [employer] Universa 6fr 20cm Radiopaque Positioner Monofilament Tether 2 [id number] - Sn/A - [id number] Implanted:Qty: 1 on 06/04/2023 by Timi Hernandez MD at [facility] Explanted:Qty: 1 on 01/21/2024 by Neel Rodriguez MD at [facility] Stent Right: Ureter [employer] 07/02/2024 V72990 / N/A / [id number] Description:Implant pause co mpleted prior to opening implant on sterile field [employer] Maddi [id number] 4.8fr 16cm Taper Tip Bladder Raoul Low Profile Large Inner Lumen Latex Free - [id number] Implanted:Qty: 1 on 09/13/2019 by Timi Hernandez MD at [facility] Explanted:Qty: 1 on 03/08/2020 at [facility] Right: Ureter [employer] 09/28/2020 [id number] / / [facility] [facility] [id number] Inlay [place] 4.7fr 14cm Pusher Fluoro Marker Atraumatic Insertion Latex Free - [id number] Implanted:Qty: 1 on 12/08/2019 by Timi Hernandez MD at [facility] Explanted:Qty: 1 on 06/07/2020 by Timi Hernandez MD at [facility] Right: Ureter [employer] 11/27/2021 [id number] / / [id number] [employer] [id number] Inlay [place] 4.7fr 14cm Pusher Fluoro Marker Atraumatic Insertion Latex Free - [id number] Implanted:Qty: 1 on 06/07/2020 by Timi Hernandez MD at [facility] Explanted:Qty: 1 on 01/31/2021 by Timi Hernandez MD at [facility] Right: Ureter [employer] 11/27/2021 [id number] / / [id number] [id number] Set Stent 14cm 4.7fr [place] Mandril Small 2 Pigtail Curve - [id number] Implanted:Qty: 1 on 01/31/2021 by Timi Hernandez MD at [facility] Explanted:Qty: 1 on 06/05/2021 by Gary Urban MD at [facility] Urethra [employer] [id number] 07/15/2022 [id number] / / [id number] Description:Intact and compl ete [employer] Universa 6fr 20cm Radiopaque Positioner Monofilament Tether 2 O41999 - [id number] Implanted:Qty: 1 on 03/17/2023 by Carson Gatica DO at [facility] Explanted:Qty: 1 on 06/04/2023 by Timi Hernandez MD at [facility] Right: Ureter [employer] [id number] 10/24/2025 [id number] / / [id number] Procedures Procedure Name Priority Date/Time Associated Diagnosis [...] HIGHLY SENSITIVE, LC/MS/MS Routine 06/15/2024 10:01 AM ART CONSULTANT PROTEIN / CREATININE RATIO, URINE, RANDOM Routine 06/15/2024 10:01 AM ART CONSULTANT RENAL FUNCTION PANEL Routine 06/15/2024 10:01 AM ART CONSULTANT CBC WITH AUTO DIFFERENTIAL Routine 06/15/2024 10:01 AM ART CONSULTANT COPY(IES) SENT TO: Routine 06/15/2024 10:01 AM ART CONSULTANT BK VIRUS, DNA, QUANTITATIVE Routine 06/15/2024 10:01 AM ART CONSULTANT CYTOMEGALOVIRUS (CMV) DNA, QUANT GEN LAB Routine 06/15/2024 10:01 AM ART CONSULTANT PROTEIN / CREATININE RATIO, URINE, RANDOM Routine 05/11/2024 8:55 AM ART CONSULTANT RENAL FUNCTION PANEL Routine 05/11/2024 8:55 AM ART CONSULTANT TACROLIMUS, HIGHLY SENSITIVE, LC/MS/MS Routine 05/11/2024 8:55 AM ART CONSULTANT CBC WITH AUTO DIFFERENTIAL Routine 05/11/2024 8:55 AM ART CONSULTANT COPY(IES) SENT TO: Routine 05/11/2024 8: 55 AM ART CONSULTANT CYTOMEGALOVIRUS (CMV) DNA, QUANT GEN LAB Routine 05/11/2024 8:55 AM ART CONSULTANT BK VIRUS, DNA, QUANTITATIVE Routine 05/11/2024 8:55 AM ART CONSULTANT HEPATITIS PANEL, ACUTE STAT 4 10:00 AM CDT PYELOGRAM - RETROGRADE Obstruction of right ureter Hydronephrosis, right Case Notes 05/21@1125- 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 Hernandez has a gap [...] 05/24/2024 in the depot until patient notify's mo- DMF 05/07- Dr. Hernandez has a gap [...] LAB BLOOD ORDERABLES Final Resu lt [facility] [address] [place] [address] * Cytomegalovirus (CMV) DNA PCR, quantitative (07/20/2024 8:35 AM CDT) Pathologist [facility] CMV DNA qn Not Detected Not Detected IU/mL [facility] CMV DNA log IU/mL Not Detected Not Detected Log IU/mL [facility] Comment: (Note) For additional information, please refer to http://education.Coinkite.TokBox/faq/CMVandEBVPCR (This link is being provided for informational/educational purposes only.) MDF med [facility] [address] [facility] [address] [facility] [address] Laurita Deleon MD, PhD 07/20/2024 8:35 AM CDT 07/20/2024 8:37 AM CDT Narrative [facility] - 07/24/2024 2:46 PM CDT LB FASTING:YES FASTING: YES us Bruce Justice MD LAB MICROBIOLOGY - GENERAL ORDE RABLES Final Result Performing Organization Address City/[facility]/ZIP Co de Phone Number [facility] [address] [place] [address], [address] [place] [phone] * COPY(IES) SENT TO: (07/20/2024 8:35 AM CDT) COPY(IES) SENT TO: [facility] Comment: [facility] - COPY TO [address] [address] 07/20/2024 8:35 AM CDT 07/20/2024 8:37 AM CDT Narrative [facility] - 07/24/2024 2:46 PM CDT LB FASTING:YES FASTING: YES us Bruce Justice MD LAB BLOOD ORDERABLES Final Resu lt Performing Organization Address [facility] Co de Phone Number [facility] * (ABNORMAL) BK virus, DNA, quantitative (07/20/2024 8:35 AM CDT) BK virus, PCR <21.5(A) Not Detected IU/mL [facility] Comment: Detected BK Virus DNA was detected below 21.5 IU/mL. Viral load in this range cannot be accurately quantifi BK Virus DNA, Real Time PCR <1.33(A) Not Detected Log IU/mL [facility] Comment: [facility] med fusion [address] [place] [address],[address] [place] [address] Laurita Deleon MD, PhD 07/20/2024 8:35 AM CDT 07/20/2024 8:37 AM CDT Narrative [facility] - 07/24/2024 2:46 PM CDT LB FASTING:YES FASTING: YES us Bruce Justice MD LAB MICROBIOLOGY - GENERAL ORDE RABLES Final Result Performing Organization Address City/[facility]/ZIP Co de Phone Number [facility] [address] [place] [address], [address] [place] [phone] * CBC with auto differential (07/20/2024 8:35 AM CDT) [facility] WBC 7.2 3.8 - 10.8 Thousand/u L [...] BLOOD ORDERABLES Final Resu Performing Organization Address [facility] de Phone Number [facility] [address] [place] [address] * (ABNORMAL) Protein / creatinine ratio, urine, [...] URINE ORDERABLES Final Resu Performing Organization Address [facility] de Phone Number [facility] [address] [place] [address] * (ABNORMAL) Renal function panel (07/20/2024 8:35 [...] BLOOD ORDERABLES Final Resu Performing Organization Address [facility] de Phone Number [facility] [address] [place] [address] * (ABNORMAL) Tacrolimus, Highly Sensitive, LC/MS/MS (06/15/2024 10:01 AM ART CONSULTANT) [facility] Tacrolimus, Highly Sensitive, LC/MS/MS <1.0(L) mcg/L [facility] Comment: Verified by repeat analysis. No definitive therapeutic or toxic ranges have been established. Optimal blood drug levels are influenced by type of transplant, patient response, time post- transplant, co-administration of other drugs, and drug formulation. The following trough range is a suggested guideline: 5.0-20.0 mcg/L. 06/15/2024 10:0 1 AM ART CONSULTANT 06/15/2024 10:02 AM ART CONSULTANT Narrative [facility] - 06/18/2024 10:27 AM ART CONSULTANT LB Bruce Justice MD LAB BLOOD ORDERABLES Final Resu lt Performing Organization Address [facility] de Phone Number [facility] [address] [place] [address] * Cytomegalovirus (CMV) DNA PCR, quantitative (06/15/2024 10:01 AM ART CONSULTANT) CMV DNA qn Not Detected Not Detected IU/mL [facility] CMV DNA log IU/mL Not Detected Not Detected Log IU/mL [facility] Comment: (Note) For additional information, please refer to http://education.Newvem/faq/CMVandEBVPCR (This link is being provided for informational/educational purposes only.) MD med fusion [address] [address],[address] [facility] [address] Laurita Deleon MD, PhD 06/15/2024 10:0 1 AM ART CONSULTANT 06/15/2024 10:02 AM ART CONSULTANT Narrative [facility] - 06/18/2024 10:27 AM ART CONSULTANT LB Bruce Justice MD LAB MICROBIOLOGY - GENERAL ORDE [facility] Final Result Performing Organization Address City/[facility]/ZIP Co de Phone Number [facility] [address] [place] [address], [address] [place] [phone] * COPY(IES) SENT TO: (06/15/2024 10:01 AM ART CONSULTANT) COPY(IES) SENT TO: [facility] Comment: [facility] - COPY TO [address] [address] 06/15/2024 10:0 1 AM ART CONSULTANT 06/15/2024 10:02 AM ART CONSULTANT Narrative [facility] - 06/18/2024 10:27 AM ART CONSULTANT LB Bruce Justice MD LAB BLOOD ORDERABLES Final Resu lt [facility] * (ABNORMAL) BK virus, DNA, quantitative (06/15/2024 10:01 AM ART CONSULTANT) BK virus, PCR 41(A) Not Detected IU/mL [facility] BK Virus DNA, Real Time PCR 1.61(A) Not Detected Log IU/mL [facility] Comment: [facility] med fusion [address] [address],[address] [place] [address] Laurita Deleon MD, PhD 06/15/2024 10:0 1 AM ART CONSULTANT 06/15/2024 10:02 AM ART CONSULTANT Narrative [facility] - 06/18/2024 10:27 AM ART CONSULTANT LB Bruce Justice MD [facility] Final Result [facility] [address] [address], [address] [place] [address] * (ABNORMAL) CBC with auto differential (06/15/2024 10:01 AM ART CONSULTANT) Pathologist [facility] WBC 7.8 3.8 - 10.8 Thousand/u L [...] [facility] 06/15/2024 10:0 1 AM ART CONSULTANT 06/15/2024 10:02 AM ART CONSULTANT Narrative [facility] - 06/18/2024 10:27 AM ART CONSULTANT LB Bruce Justice MD LAB BLOOD ORDERABLES Final Resu lt [facility] [address] [address] [facility] [place] [address] * (ABNORMAL) Protein / creatinine ratio, urine, random (06/15/2024 10:01 AM ART CONSULTANT) Creatinine, ur 21 20 - 275 mg/dL [facility] Protein/creati nine ratio 35,000(H) 24 - 184 mg/g creat [facility] Protein/Creati nine Ratio 35.000(H) 0.024 - 0.184 mg/mg creat [facility] Protein, ur, quant 735(H) 5 - 24 mg/dL [facility] Comment: Verified by repeat analysis. 06/15/2024 10:0 1 AM ART CONSULTANT 06/15/2024 10:02 AM ART CONSULTANT Narrative [facility] - 06/18/2024 10:27 AM ART CONSULTANT LB Bruce Justice MD LAB URINE ORDERABLES Final Resu lt [facility] [address] [place] [address] * (ABNORMAL) Renal function panel (06/15/2024 10:01 AM ART CONSULTANT) Glucose 90 65 - 99 mg/dL [facility] [...] [facility] 06/15/2024 10:0 1 AM ART CONSULTANT 06/15/2024 10:02 AM ART CONSULTANT Narrative [facility] - 06/18/2024 10:27 AM ART CONSULTANT LB us Bruce Justice MD LAB BLOOD ORDERABLES Final Resu lt [facility] [address] [place] [address] * (ABNORMAL) Tacrolimus, Highly Sensitive, LC/MS/MS (05/11/2024 8:55 AM ART CONSULTANT) Pathologist [facility] Tacrolimus, Highly Sensitive, LC/MS/MS 1.2(L) mcg/L [facility] Comment: No definitive therapeutic or toxic ranges have been established. Optimal blood drug levels are influenced by type of transplant, patient response, time post- transplant, co-administration of other drugs, and drug formulation. The following trough range is a suggested guideline: 5.0-20.0 mcg/L. 05/11/2024 8:55 AM ART CONSULTANT 05/11/2024 8:56 AM ART CONSULTANT Narrative [facility] - 05/15/2024 2:37 AM ART CONSULTANT LB FASTING:YES FASTING: YES Bruce Justice MD LAB BLOOD ORDERABLES Final Resu lt [facility] [address] [place] [address] * Cytomegalovirus (CMV) DNA PCR, quantitative (05/11/2024 8:55 AM ART CONSULTANT) CMV DNA qn Not Detected Not Detected IU/mL [facility] CMV DNA log IU/mL Not Detected Not Detected Log IU/mL [facility] Comment: (Note) For additional information, please refer to http://education.Newvem/faq/CMVandEBVPCR (This link is being provided for informational/educational purposes only.) [facility] med fusion [address] [address],[address] [facility] [id number] Laurita Deleon MD, PhD 05/11/2024 8:55 AM ART CONSULTANT 05/11/2024 8:56 AM ART CONSULTANT Narrative [facility] - 05/15/2024 2:37 AM ART CONSULTANT LB FASTING:YES FASTING: YES Bruce Justice MD LAB MICROBIOLOGY - GENERAL ORDE [facility] Final Result [facility] [address] [place] [address], [address] [place] [phone] * COPY(IES) SENT TO: (05/11/2024 8:55 AM ART CONSULTANT) COPY(IES) SENT TO: [facility] Comment: [facility] - COPY TO [facility] [address] [place] [address] 05/11/2024 8:55 AM ART CONSULTANT 05/11/2024 8:56 AM ART CONSULTANT Narrative [facility] - 05/15/2024 2:37 AM ART CONSULTANT LB FASTING:YES FASTING: YES us Bruce Justice MD LAB BLOOD ORDERABLES Final Resu lt [facility] * BK virus, DNA, quantitative (05/11/2024 8:55 AM ART CONSULTANT) Pathologist [facility] BK virus, PCR Not Detected Not Detected IU/mL [facility] BK Virus DNA, Real Time PCR Not Detected Not Detected Log IU/mL [facility] Comment: F med fusion [address] [place] [address],[address] [facility] [address] Laurita Deleon MD, PhD 05/11/2024 8:55 AM ART CONSULTANT 05/11/2024 8:56 AM ART CONSULTANT Narrative [facility] - 05/15/2024 2:37 AM ART CONSULTANT LB FASTING:YES FASTING: YES us Bruce Justice MD LAB MICROBIOLOGY - [facility] Final Result Performing Organization Address [facility] Co de Phone Number [facility] [address] [place] [address], [address] [place] [phone] * (ABNORMAL) CBC with auto differential (05/11/2024 8:55 AM ART CONSULTANT) [facility] WBC 7.0 3.8 - 10.8 Thousand/u L [...] % [facility] 05/11/2024 8:55 AM ART CONSULTANT 05/11/2024 8:56 AM ART CONSULTANT Narrative [facility] - 05/15/2024 2:37 AM ART CONSULTANT LB FASTING:YES FASTING: YES us Bruce Justice MD LAB BLOOD ORDERABLES Final Resu lt [facility] [address] [place] [address] * (ABNORMAL) Protein / creatinine ratio, urine, random (05/11/2024 8:55 AM ART CONSULTANT) Creatinine, ur 7(L) 20 - 275 mg/dL [facility] Protein/creati nine ratio 244,286(H) 24 - 184 mg/g creat [facility] Protein/Creati nine Ratio 244.286(H) 0.024 - 0.184 mg/mg creat [facility] Protein, ur, quant 1,710(H) 5 - 24 mg/dL [facility] Comment: Results verified by repeat analysis on dilution. 05/11/2024 8:55 AM ART CONSULTANT 05/11/2024 8:56 AM ART CONSULTANT Narrative [facility] - 05/15/2024 2:37 AM ART CONSULTANT LB FASTING:YES FASTING: YES Bruce Justice MD LAB URINE ORDERABLES Final Resu lt Performing Organization Address City/[facility]/ZIP Co de Phone Number [facility] [address] [address] [address] * (ABNORMAL) Renal function panel (05/11/2024 8:55 AM ART CONSULTANT) Pathologist [facility] Glucose 87 65 - 99 mg/dL [facility] [...] g/dL [facility] 05/11/2024 8:55 AM ART CONSULTANT 05/11/2024 8:56 AM ART CONSULTANT Narrative [facility] - 05/15/2024 2:37 AM ART CONSULTANT LB FASTING:YES FASTING: YES Bruce Justice MD LAB BLOOD ORDERABLES Final Resu lt Performing Organization Address City/[facility]/ZIP Co de Phone Number [facility] [address] [address] [place] [address] * Hepatitis panel, acute Blood (12/03/2023 10:00 [...] 19. Hep C Ab Nonreactive Nonreactive [facility] Comment: Interpretive Data Nonreactive: Antibodies to [...] revised on 2019. HepBsAg Nonreactive Nonreactive [facility] Blood 12/03/2023 10:0 0 AM CDT 12/03/2023 10:01 AM CDT Anna Clarke MD LAB MICROBIOLOGY - GENERAL OR DERABLES Final Result [facility] [address] [address] Department [place] [address] from Last 3 Months or Most Recently Relevant to Health Maintenance Insurance [employer]ET[employer] [facility] HMO MEDICARE MEDICARE [place] MEDICARE MEDICARE [facility] IDPA Advance Directives For more information, please contact: [phone] * Full Code (Latest Code Status on [...] 10:10 AM 03/04/2023 8:53 PM Care Teams Senior Manager Quality Assurance Relationship Specialty Start Date End Date Nikkie Gordon MD PCP - General Family Medicine 03/09/21 Nikkie Gordon MD 03/09/21 Susan Jones MD 11/27/18 Kristian Ram MD Consulting Physician Nephrology 05/05/19 Chelo Herzog, RN [address] [facility] [address] [place] [address] Machine Stapler 05/05/19 Davidson Martinez MD [address] [address] Daytime Babysitter Cardiology 08/16/21 Tyson Bales MD [address] [address] Daytime Babysitter Cardiovascular Disease 04/16/22 Kristian Ram MD [address] [place] [address] [address] [place] [address] Referring Physician Nephrology 03/11/23 Anna Clarke MD [address] [place] [address] [address]AM[address] [place] [address] Consulting Physician Nephrology 04/24/23
--- OUTSIDE RECORDS SUMMARY | 2024-08-06 00:28 | XMS_ITS ---
Author Organization [facility] Building [address] Address [address] [place] [address] Care Team Providers Care [employer] Teacher Name Role Phone Nikkie Gordon MD Primary Care Provider [phone] Nikkie Gordon MD Unavailable [phone] Susan Jones MD Unavailable [phone] Kristian Ram MD Unavailable [phone] Chelo Herzog RN Unavailable [phone] Davidson Martinez MD Unavailable [phone] Tyson Bales MD Unavailable Kristian Ram MD Unavailable [phone] Anna Clarke MD Unavailable [phone] Dialysis Access Sites Type Status Location Placement [...] HIGHLY SENSITIVE, LC/MS/MS Routine 06/15/2024 10:01 AM INORGANIC CHEMISTRY TEACHER PROTEIN / CREATININE RATIO, URINE, RANDOM Routine 06/15/2024 10:01 AM INORGANIC CHEMISTRY TEACHER RENAL FUNCTION PANEL Routine 06/15/2024 10:01 AM INORGANIC CHEMISTRY TEACHER CBC WITH AUTO DIFFERENTIAL Routine 06/15/2024 10:01 AM INORGANIC CHEMISTRY TEACHER COPY(IES) SENT TO: Routine 06/15/2024 10:01 AM INORGANIC CHEMISTRY TEACHER BK VIRUS, DNA, QUANTITATIVE Routine 06/15/2024 10:01 AM INORGANIC CHEMISTRY TEACHER CYTOMEGALOVIRUS (CMV) DNA, QUANT GEN LAB Routine 06/15/2024 10:01 AM INORGANIC CHEMISTRY TEACHER PROTEIN / CREATININE RATIO, URINE, RANDOM Routine 05/11/2024 8:55 AM INORGANIC CHEMISTRY TEACHER RENAL FUNCTION PANEL Routine 05/11/2024 8:55 AM INORGANIC CHEMISTRY TEACHER TACROLIMUS, HIGHLY SENSITIVE, LC/MS/MS Routine 05/11/2024 8:55 AM INORGANIC CHEMISTRY TEACHER CBC WITH AUTO DIFFERENTIAL Routine 05/11/2024 8:55 AM INORGANIC CHEMISTRY TEACHER COPY(IES) SENT TO: Routine 05/11/2024 8: 55 AM INORGANIC CHEMISTRY TEACHER CYTOMEGALOVIRUS (CMV) DNA, QUANT GEN LAB Routine 05/11/2024 8:55 AM INORGANIC CHEMISTRY TEACHER BK VIRUS, DNA, QUANTITATIVE Routine 05/11/2024 8:55 AM INORGANIC CHEMISTRY TEACHER HEPATITIS PANEL, ACUTE STAT 4 10:00 AM [...] 03/01/2023 Assessment & Plan (03/02/2023 12:00 PM INORGANIC CHEMISTRY TEACHER): Body mass index is 34.15 kg/m . - discussed risks of obesity and association with chronic medical problems including HTN, DM, and NEREYDA - advised patient on importance of maintaining a diet and exercise regimen including cardiovascular and weight-bearing exercises - nutrition consultation Physical deconditioning 06/01/2021 Assessment & Plan (06/07/2021 2:29 PM INORGANIC CHEMISTRY TEACHER): Multifactorial but mostly driven by her neuropathy and malnutrition - PT/OT recommending SNF. Pt not amenable. - Home PT/OT with 24 hr supervision. States son can provide supervision. Assessment & Plan (06/06/2021 2:58 PM INORGANIC CHEMISTRY TEACHER): Multifactorial but mostly driven by her neuropathy -PT/OT recommending SNF. Pt not amenable. Assessment & Plan (06/05/2021 7:10 PM INORGANIC CHEMISTRY TEACHER): Multifactorial but mostly driven by her neuropathy -PT/OT recommending SNF, she is considering but may still elect to discharge home Assessment & Plan (06/04/2021 9:50 AM INORGANIC CHEMISTRY TEACHER): Multifactorial but mostly driven by her neuropathy -PT/OT recommending SNF, she is considering but may still elect to discharge home Assessment & Plan (06/03/2021 10:29 AM INORGANIC CHEMISTRY TEACHER): Multifactorial but mostly driven by her neuropathy -PT/OT recommending SNF, she is considering but may still elect to discharge home Assessment & Plan (06/02/2021 12:57 PM INORGANIC CHEMISTRY TEACHER): Multifactorial but mostly driven by her neuropathy -PT/OT recommending SNF, she is considering but may still elect to discharge home Assessment & Plan (06/01/2021 12:38 PM INORGANIC CHEMISTRY TEACHER): Multifactorial but mostly driven by her neuropathy -PT/OT recommending SNF, she is considering but may still elect to discharge home Pyelonephritis of transplanted kidney vs UTI 06/2021 Assessment & Plan (06/07/2021 2:25 PM INORGANIC CHEMISTRY TEACHER): Spiked temperature of 38.2 on 05/30 once [...] collection Assessment & Plan (06/06/2021 2:50 PM INORGANIC CHEMISTRY TEACHER): Spiked temperature of 38.2 on 05/30 once [...] ) Assessment & Plan (06/05/2021 7:14 PM INORGANIC CHEMISTRY TEACHER): Spiked temperature of 38.2 on 05/30 once [...] duration. Assessment & Plan (06/04/2021 9:51 AM INORGANIC CHEMISTRY TEACHER): Spiked temperature of 38.2 on 05/30 once [...] sample Assessment & Plan (06/03/2021 10:33 AM INORGANIC CHEMISTRY TEACHER): Spiked temperature of 38.2 on 05/30 once [...] cultures Assessment & Plan (06/02/2021 12:53 PM INORGANIC CHEMISTRY TEACHER): Spiked temperature of 38.2 on 05/30 once [...] resulting Assessment & Plan (06/01/2021 12:34 PM INORGANIC CHEMISTRY TEACHER): Spiked temperature of 38.2 on 05/30 once [...] cultures Assessment & Plan (05/31/2021 8:40 AM INORGANIC CHEMISTRY TEACHER): Spiked temperature overnight of 38.2 once scheduled [...] 05/28/2021 Assessment & Plan (06/06/2021 2:58 PM INORGANIC CHEMISTRY TEACHER): Poor appetite, encourage protein supplementations. Nutrition consult Assessment & Plan (06/05/2021 7:16 PM INORGANIC CHEMISTRY TEACHER): Poor appetite, encourage protein supplementations. Nutrition consult Assessment & Plan (06/04/2021 9:52 AM INORGANIC CHEMISTRY TEACHER): Poor appetite, encourage protein supplementations. Nutrition consult Assessment & Plan (06/03/2021 10:29 AM INORGANIC CHEMISTRY TEACHER): Poor appetite, encourage protein supplementations. Nutrition consult Assessment & Plan (06/02/2021 12:55 PM INORGANIC CHEMISTRY TEACHER): Poor appetite, encourage protein supplementations. Nutrition consult Assessment & Plan (06/01/2021 12:36 PM INORGANIC CHEMISTRY TEACHER): Poor appetite, encourage protein supplementations. Nutrition consult Assessment & Plan (05/31/2021 11:07 AM INORGANIC CHEMISTRY TEACHER): Poor appetite, encourage protein supplementations. Nutrition consult Assessment & Plan (05/30/2021 10:51 AM INORGANIC CHEMISTRY TEACHER): Poor appetite, encourage protein supplementations. Nutrition consult Assessment & Plan (05/29/2021 1:35 PM INORGANIC CHEMISTRY TEACHER): Poor appetite, encourage protein supplementations. Nutrition consult Leg pain, bilateral 05/26/2021 Assessment & Plan (06/07/2021 2:27 PM INORGANIC CHEMISTRY TEACHER): According to the patient, this began with [...] amenable. Assessment & Plan (06/06/2021 2:54 PM INORGANIC CHEMISTRY TEACHER): According to the patient, this began with [...] amenable. Assessment & Plan (06/05/2021 7:17 PM INORGANIC CHEMISTRY TEACHER): According to the patient, this began with [...] DVT Assessment & Plan (06/04/2021 9:49 AM INORGANIC CHEMISTRY TEACHER): According to the patient, this began with [...] DVT Assessment & Plan (06/03/2021 10:29 AM INORGANIC CHEMISTRY TEACHER): According to the patient, this began with [...] DVT Assessment & Plan (06/02/2021 1:01 PM INORGANIC CHEMISTRY TEACHER): According to the patient, this began with [...] DVT Assessment & Plan (06/01/2021 12:38 PM INORGANIC CHEMISTRY TEACHER): According to the patient, this began with [...] DVT Assessment & Plan (05/31/2021 11:07 AM INORGANIC CHEMISTRY TEACHER): According to the patient, this began with [...] DVT Assessment & Plan (05/30/2021 10:50 AM INORGANIC CHEMISTRY TEACHER): According to the patient, this began with [...] DVT Assessment & Plan (05/29/2021 1:33 PM INORGANIC CHEMISTRY TEACHER): According to the patient, this began with [...] DVT Assessment & Plan (05/28/2021 10:52 AM INORGANIC CHEMISTRY TEACHER): According to the patient, this began with [...] sciatica Assessment & Plan (05/27/2021 9:49 AM INORGANIC CHEMISTRY TEACHER): According to the patient, this began with swelling after her recent discharge from the hospital after Medications were changed (diuretics). Tramadol is effective for her. Will start with tramadol 25 mg TID prn. Monitor edema and sxs. Pt walks with walker, PT/OT evaluations Dopplers to r/o DVT s/p COVID Assessment & Plan (05/26/2021 5:26 PM INORGANIC CHEMISTRY TEACHER): According to the patient, this began with swelling after her recent discharge from the hospital after Medications were changed (diuretics). Tramadol is effective for her. Will start with tramadol 25 mg TID prn. Monitor edema and sxs. Pt walks with walker, PT/OT evaluations Pneumonia due to COVID-19 virus 05/10/2021 Assessment & Plan (05/15/2021 2:07 PM INORGANIC CHEMISTRY TEACHER): Symptom onset 05/02/21, positive test 05/09 at OSH (see care everywhere for confirmation) Cont O2, wean as able Cont decadron (d#1=05/10) Remdesivir continued w renal txp's blessing, s/p 5 days VTE ppx with SQ heparin Assessment & Plan (05/14/2021 3:22 PM INORGANIC CHEMISTRY TEACHER): Symptom onset 05/02/21, positive test 05/09 at OSH (see care everywhere for confirmation) Cont O2, wean as able Cont decadron (d#1=05/10) Remdesivir continued w renal txp's blessing, d#5 today VTE ppx with SQ heparin Assessment & Plan (05/13/2021 11:08 AM INORGANIC CHEMISTRY TEACHER): Symptom onset 05/02/21, positive test 05/09 at OSH (see care everywhere for confirmation) Cont O2, wean as able Cont decadron (d#1=05/10) Remdesivir continued w renal txp's blessing, d#4 today VTE ppx with SQ heparin Assessment & Plan (05/12/2021 12:01 PM INORGANIC CHEMISTRY TEACHER): Symptom onset 05/02/21, positive test 05/09 at OSH (see care everywhere for confirmation) Cont O2, wean as able Cont decadron (d#1=05/10) Remdesivir continued w renal txp's blessing, d#3 today VTE ppx with SQ heparin Assessment & Plan (05/11/2021 1:29 PM INORGANIC CHEMISTRY TEACHER): Onset of symptoms ~05/02/21 with worsening dyspnea, fatigue and progressive symptoms prompting presentation. Now on 5L supplemental oxygen. 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 RTO 12m. I will send the results to the portal. If she has not heard in a week, to call the office. Breast swelling 04/04/2021 Assessment & Plan (04/04/2021 3:20 PM INORGANIC CHEMISTRY TEACHER): She is s/p bx. I will look [...] 04/04/2021 Assessment & Plan (04/04/2021 3:20 PM INORGANIC CHEMISTRY TEACHER): The patient was encouraged to stop smoking. Techniques for smoking cessation were discussed to the patient's level of interest. Preoperative testing 11/09/2020 Hydrohepatosis 09/22/2020 Overview (09/22/2020): Added automatically from request for surgery [id number] Hypernatremia 08/05/2020 Assessment & Plan (08/05/2020 11:08 AM CDT): Due to Na bicarb drip ordered for correction of metabolic acidosis. - discontinue bicarb drip - will likely resolve, no need for further testing unless otherwise indicated Hydronephrosis, right 09/21/2019 Overview (09/21/2019): Added automatically from request for surgery [id number] Other proteinuria 05/05/2019 Obstruction of right ureter 02/19/2019 Overview (02/19/2019): Added automatically from request for surgery [id number] Obesity, Class II, BMI 35-39.9 01/29/2019 Assessment & Plan (05/27/2021 9:48 AM INORGANIC CHEMISTRY TEACHER): RD consult while here for diet education Pt has low appetite, not eating much Supplements ordered Assessment & Plan (05/26/2021 5:17 PM INORGANIC CHEMISTRY TEACHER): RD consult while here for diet education Hydronephrosis 12/11/2018 Overview (12/11/2018): Added automatically from request for surgery [id number] Uterine fibroid 12/02/2018 Assessment & Plan (12/05/2018 [...] 11/30/2018 Assessment & Plan (05/28/2021 10:50 AM INORGANIC CHEMISTRY TEACHER): Continue iron supplements Assessment & Plan (05/27/2021 9:47 AM INORGANIC CHEMISTRY TEACHER): Continue iron supplements Assessment & Plan (05/26/2021 5:18 PM INORGANIC CHEMISTRY TEACHER): Continue iron supplements Assessment & Plan (12/05/2018 [...] (11/27/2018): Added automatically from request for surgery [id number] Assessment & Plan (12/31/2023 9:55 AM CDT): [...] electives. Assessment & Plan (06/07/2021 2:28 PM INORGANIC CHEMISTRY TEACHER): History of ureteral obstruction from known fibroid and having ureteral exchanges every 3 months with urology (next scheduled on 06/06). - Urethral stent exchanged 06/05. - Follow up with urology outpatient Assessment & Plan (06/06/2021 2:53 PM INORGANIC CHEMISTRY TEACHER): History of ureteral obstruction from known fibroid and having ureteral exchanges every 3 months with urology (next scheduled on 06/06). - Urethral stent exchanged 06/05. Assessment & Plan (06/05/2021 7:15 PM INORGANIC CHEMISTRY TEACHER): History of ureteral obstruction from known fibroid and having ureteral exchanges every 3 months with urology (next scheduled on 06/06). - Urethral stent exchanged 06/05. Assessment & Plan (06/04/2021 9:47 AM INORGANIC CHEMISTRY TEACHER): History of ureteral obstruction from known fibroid and having ureteral exchanges every 3 months with urology (next scheduled on 06/06). -Discussed with urology here as her exchange is actually scheduled for [facility] on Fri and they are going to try and fit her on the OR schedule here -Will need to be NPO on Friday night Assessment & Plan (06/03/2021 10:28 AM INORGANIC CHEMISTRY TEACHER): History of ureteral obstruction from known fibroid and having ureteral exchanges every 3 months with urology (next scheduled on 06/06). Assessment & Plan (06/02/2021 12:53 PM INORGANIC CHEMISTRY TEACHER): History of ureteral obstruction from known fibroid and having ureteral exchanges every 3 months with urology (next scheduled on 06/06). Assessment & Plan (06/01/2021 12:35 PM INORGANIC CHEMISTRY TEACHER): History of ureteral obstruction from known fibroid and having ureteral exchanges every 3 months with urology (next scheduled on 06/06). Assessment & Plan (05/31/2021 11:06 AM INORGANIC CHEMISTRY TEACHER): History of ureteral obstruction from known fibroid and having ureteral exchanges every 3 months with urology (next scheduled on 06/06). Assessment & Plan (05/30/2021 10:48 AM INORGANIC CHEMISTRY TEACHER): History of ureteral obstruction from known fibroid and having ureteral exchanges every 3 months with urology (next scheduled on 06/06). Assessment & Plan (05/29/2021 1:31 PM INORGANIC CHEMISTRY TEACHER): History of ureteral obstruction from known fibroid and having ureteral exchanges every 3 months with urology (next scheduled on 06/06). Assessment & Plan (05/28/2021 10:50 AM INORGANIC CHEMISTRY TEACHER): ureteral obstruction from known fibroid and having ureteral exchanges every 3 months with urology (next scheduled on 06/06). Assessment & Plan (05/27/2021 9:47 AM INORGANIC CHEMISTRY TEACHER): ureteral obstruction from known fibroid and having ureteral exchanges every 3 months with urology (next scheduled on 06/06). Assessment & Plan (05/26/2021 5:16 PM INORGANIC CHEMISTRY TEACHER): ureteral obstruction from known fibroid and having [...] not think this is the case. - Baling Press Operator consulted for uterine fibroid - MRI Pelvis W/O contrast - Management of stent per urology. Assessment & Plan (11/29/2018 12:15 PM CDT): Renal U/S at OSH with hydronephrosis of transplanted kidney now s/p ureteral stent by urology 11/28. Found to have extrinsic compression of ureter from likely uterine fibroid. -Management of stent per urology. -Agree with non-emergent typewriter ribbon winder consult for management of fibroids. Hyperlipidemia, unspecified 11/27/2018 Assessment & Plan (03/02/2023 12:01 PM INORGANIC CHEMISTRY TEACHER): Continue patient's home atorvastatin 10 mg daily Hypertension, essential 11/27/2018 Assessment & Plan (05/14/2021 3:24 PM INORGANIC CHEMISTRY TEACHER): Continue home amlodipine, labetalol Assessment & Plan (05/10/2021 1:21 AM INORGANIC CHEMISTRY TEACHER): Continue home amlodipine, labetalol Assessment & Plan [...] 11/27/2018 Assessment & Plan (06/07/2021 2:27 PM INORGANIC CHEMISTRY TEACHER): S/p renal transplant (2007, b/l Cr 2.7-3.4) [...] 06/21. Assessment & Plan (06/06/2021 2:52 PM INORGANIC CHEMISTRY TEACHER): S/p renal transplant (2007, b/l Cr 2.7-3.4) [...] qday Assessment & Plan (06/05/2021 7:09 PM INORGANIC CHEMISTRY TEACHER): S/p renal transplant (2007, b/l Cr 2.7-3.4) [...] monitoring Assessment & Plan (06/04/2021 9:52 AM INORGANIC CHEMISTRY TEACHER): S/p renal transplant (2007, b/l Cr 2.7-3.4) [...] monitoring Assessment & Plan (06/03/2021 10:29 AM INORGANIC CHEMISTRY TEACHER): S/p renal transplant (2007, b/l Cr 2.7-3.4) [...] monitoring Assessment & Plan (06/02/2021 12:55 PM INORGANIC CHEMISTRY TEACHER): S/p renal transplant (2007, b/l Cr 2.7-3.4) [...] monitoring Assessment & Plan (06/01/2021 12:37 PM INORGANIC CHEMISTRY TEACHER): S/p renal transplant (2007, b/l Cr 2.7-3.4) [...] monitoring Assessment & Plan (05/31/2021 8:40 AM INORGANIC CHEMISTRY TEACHER): S/p renal transplant (2007, b/l Cr 2.7-3.4) [...] monitoring. Assessment & Plan (05/30/2021 10:52 AM INORGANIC CHEMISTRY TEACHER): S/p renal transplant (2007, b/l Cr 2.7-3.4) [...] monitoring. Assessment & Plan (05/29/2021 1:36 PM INORGANIC CHEMISTRY TEACHER): S/p renal transplant (2007, b/l Cr 2.7-3.4) [...] monitoring. Assessment & Plan (05/28/2021 10:53 AM INORGANIC CHEMISTRY TEACHER): s/p renal transplant (2007, b/l Cr 2.7-3.4) [...] following/managing Assessment & Plan (05/27/2021 9:46 AM INORGANIC CHEMISTRY TEACHER): s/p renal transplant (2007, b/l Cr 2.7-3.4) [...] following/managing Assessment & Plan (05/26/2021 5:11 PM INORGANIC CHEMISTRY TEACHER): s/p renal transplant (2007, b/l Cr 2.7-3.4) [...] following/managing Assessment & Plan (05/15/2021 2:07 PM INORGANIC CHEMISTRY TEACHER): ESRD 2/2 hypertensive nephrosclerosis s/p renal transplant (2007, b/l Cr 2.7- 3.4) Tacrolimus trough above goal, decreased dose 5mg bid Renal transplant service comanaging (nb home dose 9am/8pm) Home prednisone 5mg daily held while on dexamethasone Has been off myfortic (h/o bk/cmv viremia) Assessment & Plan (05/14/2021 3:22 PM INORGANIC CHEMISTRY TEACHER): ESRD 2/2 hypertensive nephrosclerosis s/p renal transplant (2007, b/l Cr 2.7- 3.4) Tacrolimus trough above goal, decreased dose 5mg bid Renal transplant service comanaging (nb home dose 9am/8pm) Home prednisone 5mg daily held while on dexamethasone Has been off myfortic (h/o bk/cmv viremia) Assessment & Plan (05/13/2021 11:09 AM INORGANIC CHEMISTRY TEACHER): ESRD 2/2 hypertensive nephrosclerosis s/p renal transplant (2007, b/l Cr 2.7- 3.4) Tacrolimus trough above goal, decreased dose 5mg bid Renal transplant service comanaging (nb home dose 9am/8pm) Home prednisone 5mg daily held while on dexamethasone Assessment & Plan (05/12/2021 12:01 PM INORGANIC CHEMISTRY TEACHER): ESRD 2/2 hypertensive nephrosclerosis s/p renal transplant [...] following Assessment & Plan (05/11/2021 1:16 PM INORGANIC CHEMISTRY TEACHER): ESRD 2/2 hypertensive nephrosclerosis s/p renal transplant [...] (12/05/2018 2:28 PM CDT): Renal transplant at [facility], followed now reportedly by Dr. Rome Ram [...] with information in Care Everywhere from her mental telepathist. She has not seen Dr. Ram yet. She has had 3 no shows. 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 Tac goal 4-7 per notes - BMP and tac trough on Friday per Transplant nephrology, [facility] and have faxed to PCP, script provided - Discharge today. I have paged her primary mental telepathist office. I have faxed the d/c summary to her PCP as well. Assessment & Plan (12/04/2018 10:32 AM CDT): Renal transplant at [facility], followed now reportedly by Dr. Rome Ram [...] with information in Care Everywhere from her mental telepathist. She has not seen Dr. Ram yet. She has had 3 no shows. 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 Tac goal 4-7 per notes - Further mgmt of MARIBELL per nephrology. Assessment & Plan (12/03/2018 10:35 AM CDT): Renal transplant at [facility], followed now reportedly by Dr. Rome Ram although his clinic stated she has not been seen there and has no showed the last 3 clinic appts. - Patient has a second chart - Ronan Moreira with information in Care Everywhere from her mental telepathist. She has not seen Dr. Ram yet. [...] (12/02/2018 12:03 PM CDT): Renal transplant at [facility], followed now reportedly by Dr. Rome Ram [...] (12/01/2018 5:23 PM CDT): Renal transplant at [facility], followed now by Dr. Rome Ram. Reported baseline cr 1.3 - Transplant nephrology following, mgmt of immunosuppression per their team - Tac level in AM (low today) - Attempting to obtain records from Dr. Ram Assessment & Plan (11/30/2018 5:38 PM CDT): Renal transplant at [facility], followed now by Dr. Rome Ram. Reported baseline cr 1.3 - Transplant nephrology following, mgmt of immunosuppression per their team Acute on chronic diastolic (congestive) heart fa ilure 11/27/2018 Assessment & Plan (06/07/2021 2:28 PM INORGANIC CHEMISTRY TEACHER): TTE (02/2021) with EF 70%, nl RV/LV size and systolic function and moderate pericardia effusion without collapse (managed conservatively with diuresis). -Repeat TTE with EF 70%, impaired relaxation and stable moderate pericardial effusion -Continue BP control and no signs of volume overload currently Assessment & Plan (06/06/2021 2:57 PM INORGANIC CHEMISTRY TEACHER): TTE (02/2021) with EF 70%, nl RV/LV size and systolic function and moderate pericardia effusion without collapse (managed conservatively with diuresis). -Repeat TTE with EF 70%, impaired relaxation and stable moderate pericardial effusion -Continue BP control and no signs of volume overload currently Assessment & Plan (06/05/2021 7:15 PM INORGANIC CHEMISTRY TEACHER): TTE (02/2021) with EF 70%, nl RV/LV size and systolic function and moderate pericardia effusion without collapse (managed conservatively with diuresis). -Repeat TTE with EF 70%, impaired relaxation and stable moderate pericardial effusion -Continue BP control and no signs of volume overload currently Assessment & Plan (06/04/2021 9:42 AM INORGANIC CHEMISTRY TEACHER): TTE (02/2021) with EF 70%, nl RV/LV size and systolic function and moderate pericardia effusion without collapse (managed conservatively with diuresis). -Repeat TTE with EF 70%, impaired relaxation and stable moderate pericardial effusion -Continue BP control and no signs of volume overload currently Assessment & Plan (06/03/2021 10:27 AM INORGANIC CHEMISTRY TEACHER): TTE (02/2021) with EF 70%, nl RV/LV size and systolic function and moderate pericardia effusion without collapse (managed conservatively with diuresis). -Repeat TTE with EF 70%, impaired relaxation and stable moderate pericardial effusion -Continue BP control and no signs of volume overload currently Assessment & Plan (06/02/2021 12:50 PM INORGANIC CHEMISTRY TEACHER): TTE (02/2021) with EF 70%, nl RV/LV size and systolic function and moderate pericardia effusion without collapse (managed conservatively with diuresis). -Repeat TTE with EF 70%, impaired relaxation and stable moderate pericardial effusion -Continue BP control and no signs of volume overload currently Assessment & Plan (06/01/2021 12:32 PM INORGANIC CHEMISTRY TEACHER): TTE (02/2021) with EF 70%, nl RV/LV size and systolic function and moderate pericardia effusion without collapse (managed conservatively with diuresis). -Repeat TTE with EF 70%, impaired relaxation and stable moderate pericardial effusion -Continue BP control and no signs of volume overload currently Assessment & Plan (05/31/2021 11:04 AM INORGANIC CHEMISTRY TEACHER): TTE (02/2021) with EF 70%, nl RV/LV size and systolic function and moderate pericardia effusion without collapse (managed conservatively with diuresis). -Repeat TTE with EF 70%, impaired relaxation and stable moderate pericardial effusion -Continue BP control and no signs of volume overload currently Assessment & Plan (05/30/2021 10:47 AM INORGANIC CHEMISTRY TEACHER): TTE (02/2021) with EF 70%, nl RV/LV size and systolic function and moderate pericardia effusion without collapse (managed conservatively with diuresis). -Repeat TTE with EF 70%, impaired relaxation and stable moderate pericardial effusion -Continue BP control and no signs of volume overload currently Assessment & Plan (05/29/2021 1:31 PM INORGANIC CHEMISTRY TEACHER): TTE (02/2021) with EF 70%, nl RV/LV size and systolic function and moderate pericardia effusion without collapse (managed conservatively with diuresis). -Repeat TTE with EF 70%, impaired relaxation and stable moderate pericardial effusion -Continue BP control and no signs of volume overload currently Assessment & Plan (05/28/2021 10:49 AM INORGANIC CHEMISTRY TEACHER): TTE (02/2021) with EF 70%, nl RV/LV size and systolic function and moderate pericardia effusion without collapse (managed conservatively with diuresis). Repeat TTE ordered Assessment & Plan (05/27/2021 9:46 AM INORGANIC CHEMISTRY TEACHER): TTE (02/2021) with EF 70%, nl RV/LV size and systolic function and moderate pericardia effusion without collapse (managed conservatively with diuresis). Repeat TTE ordered Assessment & Plan (05/26/2021 5:20 PM INORGANIC CHEMISTRY TEACHER): TTE (02/2021) with EF 70%, nl RV/LV [...] not think TTE or HILLARY would exchange floor manager at this time but patient would likely [...] not think TTE or HILLARY would exchange floor manager at this time but patient would likely [...] not think TTE or HILLARY would exchange floor manager at this time but patient would likely benefit from cardiology input as outpatient. NEREYDA on CPAP 11/27/2018 Assessment & Plan (12/30/2023 11:11 PM CDT): Cont CPAP Assessment & Plan (06/07/2021 2:28 PM INORGANIC CHEMISTRY TEACHER): Pt uses home nightly CPAP Assessment & Plan (06/06/2021 2:58 PM INORGANIC CHEMISTRY TEACHER): Pt uses home nightly CPAP Assessment & Plan (06/05/2021 7:15 PM INORGANIC CHEMISTRY TEACHER): Pt uses home nightly CPAP Assessment & Plan (06/04/2021 9:49 AM INORGANIC CHEMISTRY TEACHER): Pt uses home nightly CPAP Assessment & Plan (06/03/2021 10:29 AM INORGANIC CHEMISTRY TEACHER): Pt uses home nightly CPAP Assessment & Plan (06/02/2021 12:54 PM INORGANIC CHEMISTRY TEACHER): Pt uses home nightly CPAP Assessment & Plan (06/01/2021 12:36 PM INORGANIC CHEMISTRY TEACHER): Pt uses home nightly CPAP Assessment & Plan (05/31/2021 11:07 AM INORGANIC CHEMISTRY TEACHER): Pt uses home nightly CPAP Assessment & Plan (05/30/2021 10:50 AM INORGANIC CHEMISTRY TEACHER): Pt uses home nightly CPAP Assessment & Plan (05/29/2021 1:34 PM INORGANIC CHEMISTRY TEACHER): Pt uses home nightly CPAP Assessment & Plan (05/28/2021 10:50 AM INORGANIC CHEMISTRY TEACHER): Pt uses home CPAP Assessment & Plan (05/27/2021 9:47 AM INORGANIC CHEMISTRY TEACHER): Pt uses home CPAP Assessment & Plan (05/26/2021 5:15 PM INORGANIC CHEMISTRY TEACHER): Pt uses home CPAP Assessment & Plan [...] HD Assessment & Plan (03/02/2023 11:59 AM INORGANIC CHEMISTRY TEACHER): No signs of exacerbation. Last TTE done [...] ETOH. Assessment & Plan (05/15/2021 2:07 PM INORGANIC CHEMISTRY TEACHER): Recent admission for pericardial effusion and volume overload. TTE with large pericardial effusion was seen by cardiology and thoracic surgery with plan for conservative management and diuresis Have not directly reimaged pericardial effusion thus far during admission Currently HDS, continue anti-hypertensives Holding Lasix as above Assessment & Plan (05/14/2021 3:23 PM INORGANIC CHEMISTRY TEACHER): Recent admission for pericardial effusion and volume overload. TTE with large pericardial effusion was seen by cardiology and thoracic surgery with plan for conservative management and diuresis Have not directly reimaged pericardial effusion thus far during admission Currently HDS, continue anti-hypertensives Holding Lasix as above Assessment & Plan (05/13/2021 11:09 AM INORGANIC CHEMISTRY TEACHER): Recent admission for pericardial effusion and volume overload. TTE with large pericardial effusion was seen by cardiology and thoracic surgery with plan for conservative management and diuresis -currently HDS, continue anti-hypertensives -holding diuretics as elsewhere Assessment & Plan (05/12/2021 12:01 PM INORGANIC CHEMISTRY TEACHER): Recent admission for pericardial effusion and volume overload. 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 Of note patient has also been followed at [facility], but most recently continues to follow her care at [facility] since 2016. -Cr somewhat improved with thomas catheter placement. Urology c/s; per their recommendations, d/c and attempt void trial. 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 Of note patient has also been followed at [facility], but most recently continues to follow her care at [facility] since 2016. -Patient recently admitted in 08/2018 d/t MARIBELL, baseline Cr was 1.2-1.4 until 06/2018 where it has been found to be 2.2-2.8. She was evaluated by urology who recommended IR c/s; and the patient left the hospital AMA -She re-presents to [facility] 10/25 with MARIBELL, BLE edema, and [...] 10/25/2018 Assessment & Plan (03/02/2023 11:59 AM INORGANIC CHEMISTRY TEACHER): Likely secondary to ESRD. Continue as planned under the ESRD - continue IV iron supplements q 2 weeks. - EPO 49349 units IV t.i.d. Friday on days not getting hemodialysis - CBC daily Assessment & Plan (06/07/2021 2:27 PM INORGANIC CHEMISTRY TEACHER): Hgb on admission related to anemia of [...] bleed Assessment & Plan (06/05/2021 7:09 PM INORGANIC CHEMISTRY TEACHER): Hgb on admission related to anemia of [...] bleed Assessment & Plan (06/04/2021 9:42 AM INORGANIC CHEMISTRY TEACHER): Hgb on admission related to anemia of [...] bleed Assessment & Plan (06/03/2021 10:27 AM INORGANIC CHEMISTRY TEACHER): Hgb on admission related to anemia of [...] bleed Assessment & Plan (06/02/2021 12:50 PM INORGANIC CHEMISTRY TEACHER): Hgb on admission related to anemia of [...] bleed Assessment & Plan (06/01/2021 12:32 PM INORGANIC CHEMISTRY TEACHER): Hgb on admission related to anemia of [...] bleed Assessment & Plan (05/31/2021 11:04 AM INORGANIC CHEMISTRY TEACHER): Hgb on admission related to anemia of [...] AM Assessment & Plan (05/30/2021 10:45 AM INORGANIC CHEMISTRY TEACHER): Hgb on admission related to anemia of CKD as well as component of HERNANDEZ. Baseline Hgb ~8 - Hgb matteo of 6.3 and s/p 1 unit PRBCs with improvement to ~7 since - Continue iron supplements - No signs/symptoms of bleeding, continue to monitor & transfuse Hgb <7 - Repeat iron panel/ferritin with AM labs Assessment & Plan (05/29/2021 1:29 PM INORGANIC CHEMISTRY TEACHER): Hgb on admission related to anemia of CKD as well as component of HERNANDEZ. Baseline Hgb ~8 - Hgb matteo of 6.3 and s/p 1 unit PRBCs with improvement to ~7 since - Continue iron supplements - No signs/symptoms of bleeding, continue to monitor & transfuse Hgb <7 Assessment & Plan (05/28/2021 10:50 AM INORGANIC CHEMISTRY TEACHER): S/p 1 unit pRBCs 05/26 Recent Labs Lab Units 05/28/21 0519 05/27/21 0433 05/26/21 1308 HEMOGLOBIN g/dL 7.7* 7.7* 7.7* Transfuse prn to keep Hgb>7 Anemia of chronic disease Hgb on admission related to anemia of CKD as well as component of HERNANDEZ. -continue iron supplements Assessment & Plan (05/27/2021 9:47 AM INORGANIC CHEMISTRY TEACHER): S/p 1 unit pRBCs 05/26 Recent Labs Lab Units 05/27/21 0433 05/26/21 1308 05/26/21 0415 HEMOGLOBIN g/dL 7.7* 7.7* 6.3* Transfuse prn to keep Hgb>7 Anemia of chronic disease Hgb on admission related to anemia of CKD as well as component of HERNANDEZ. -continue iron supplements Assessment & Plan (05/26/2021 5:15 PM INORGANIC CHEMISTRY TEACHER): S/p 1 unit pRBCs 05/26 Recent Labs Lab Units 05/26/21 1308 05/26/21 0415 HEMOGLOBIN g/dL 7.7* 6.3* Transfuse prn to keep Hgb>7 Anemia of chronic disease Hgb on admission related to anemia of CKD as well as component of HERNANDEZ. -continue iron supplements Assessment & Plan (05/14/2021 3:24 PM INORGANIC CHEMISTRY TEACHER): Hgb 9.2. Baseline ~8-9 related to anemia of CKD as well as component of HERNANDEZ. -continue iron supplements Assessment & Plan (05/10/2021 1:19 AM INORGANIC CHEMISTRY TEACHER): Hgb 9.2. 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 Plan [...] 11:39 AM CDT): -s/p DDKT 2007 at [facility] -Immunosuppression: cont tacrolimus 7mg QAM/6mg QPM, prednisone 5. She states she has not been on CellCept or Myfortic since 2007 or 2008. - Renal transplant in agreement with d/c today - Tac trough adequate Assessment & Plan (10/27/2018 4:48 PM CDT): -s/p DDKT 2007 at [facility] -Immunosuppression: cont tacrolimus 7mg QAM/6mg QPM, prednisone 5. She states she has not been on CellCept or Myfortic since 2007 or 2008. - Check tac trough - Followed by renal transplant service Assessment & Plan (10/26/2018 2:45 PM CDT): -s/p DDKT 2007 at [facility] -Immunosuppression: cont tacrolimus 7mg QAM/6mg QPM, prednisone 5. She states she has not been on CellCept or Myfortic since 2007 or 2008. - Check tac trough - Followed by renal transplant service Assessment & Plan (10/25/2018 3:31 AM CDT): -s/p DDKT 2007 at [facility] -Immunosuppression: cont tacrolimus 7mg QAM/6mg QPM, prednisone [...] drink = 0.6 oz pur e alcohol) [facility] [employer]ities Answer Date Recorded In the past 12 months has [employer], gas, oil, or water [employer] threatened to shut off services in your [...] declined 01/01/2024 How often do you attend yazidism or episcopal serv ices? Patient declined 01/01/2024 Do you belong to any clubs o r organizations such as yazidism groups, unions, fraternal or athletic groups, or [...] any time in the past 12 m [facility], were you homeless or living in a [...] 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, [employer] TRUCK [employer]IVER, ENRRIQUE) 03/03/2023 Comments No Sex and Gender Information Value Date Recorded Sex Assigned at Not on file Legal Sex Female 1:10 PM INORGANIC CHEMISTRY TEACHER Gender Identity Not on file Sexual Orientation [...] 87.1 kg (192 lb) 05/05/2024 3:16 PM INORGANIC CHEMISTRY TEACHER Height 162.6 cm (5' 4 ) 05/05/2024 3:16 PM INORGANIC CHEMISTRY TEACHER Body Mass Index 32.96 05/05/2024 3:16 PM INORGANIC CHEMISTRY TEACHER Results * (ABNORMAL) Tacrolimus, Highly Sensitive, LC/MS/MS (07/20/2024 8:35 AM CDT) Pathologist [facility] Tacrolimus, Highly Sensitive, LC/MS/MS <1.0(L) [...] LAB BLOOD ORDERABLES Final Resu lt [facility] [address] [place] [address] * Cytomegalovirus (CMV) DNA PCR, quantitative (07/20/2024 8:35 AM CDT) [facility] CMV DNA qn Not Detected Not Detected IU/mL [facility] CMV DNA log IU/mL Not Detected Not Detected Log IU/mL [facility] Comment: (Note) For additional information, please refer to http://education.[email or web address].[email or web address]/faq/CMVandEBVPCR (This link is being provided for informational/educational purposes only.) [facility] [address] [address],[address] [facility] [address] Laurita Deleon MD, PhD 07/20/2024 8:35 AM CDT 07/20/2024 8:37 AM CDT Narrative [facility] - 07/24/2024 2:46 PM CDT LB FASTING:YES FASTING: YES us Bruce Justice MD LAB MICROBIOLOGY - GENERAL ORDE RABLES Final Result Performing Organization Address [facility] Co de Phone Number [facility] [address] [place] [address], [address] [place] [phone] * COPY(IES) SENT TO: (07/20/2024 8:35 AM CDT) COPY(IES) SENT TO: [facility] Comment: [facility] - COPY TO [address] [phone] 07/20/2024 8:35 AM CDT 07/20/2024 8:37 AM CDT Narrative [facility] - 07/24/2024 2:46 PM CDT LB FASTING:YES FASTING: YES us Bruce Justice MD LAB BLOOD ORDERABLES Final Resu lt Performing Organization Address [facility] Co de Phone Number [facility] * (ABNORMAL) BK virus, DNA, quantitative (07/20/2024 8:35 AM CDT) BK virus, PCR <21.5(A) Not Detected IU/mL [facility] Comment: Detected BK Virus DNA was detected below 21.5 IU/mL. Viral load in this range cannot be accurately quantifi BK Virus DNA, Real Time PCR <1.33(A) Not Detected Log IU/mL [facility] Comment: [facility] [address] [place] [address],[address] [place] [address] Laurita Deleon MD, PhD 07/20/2024 8:35 AM CDT 07/20/2024 8:37 AM CDT Narrative [facility] - 07/24/2024 2:46 PM CDT LB FASTING:YES FASTING: YES us Bruce Justice MD LAB MICROBIOLOGY - GENERAL ORDE RABLES Final Result Performing Organization Address [facility] Co de Phone Number [facility] [address] [place] [address], [address] [place] [phone] * CBC with auto differential (07/20/2024 8:35 AM CDT) [facility] WBC 7.2 3.8 - 10.8 Thousand/u [...] BLOOD ORDERABLES Final Resu Performing Organization Address [facility] de Phone Number [facility] [address] [place] [address] * (ABNORMAL) Protein / creatinine ratio, urine, [...] Bruce Justice MD LAB URINE ORDERABLES Final [facility] Performing Organization Address [facility] de Phone Number [facility] [address] [place] [address] * (ABNORMAL) Renal function panel (07/20/2024 8:35 [...] BLOOD ORDERABLES Final Resu Performing Organization Address [facility] de Phone Number [employer] [facility] [address] [place] [address] * (ABNORMAL) Tacrolimus, Highly Sensitive, LC/MS/MS (06/15/2024 10:01 AM INORGANIC CHEMISTRY TEACHER) [facility] Tacrolimus, Highly Sensitive, LC/MS/MS <1.0(L) mcg/L [facility] Comment: Verified by repeat analysis. No definitive therapeutic or toxic ranges have been established. Optimal blood drug levels are influenced by type of transplant, patient response, time post- transplant, co-administration of other drugs, and drug formulation. The following trough range is a suggested guideline: 5.0-20.0 mcg/L. 06/15/2024 10:0 1 AM INORGANIC CHEMISTRY TEACHER 06/15/2024 10:02 AM INORGANIC CHEMISTRY TEACHER Narrative [facility] - 06/18/2024 10:27 AM INORGANIC CHEMISTRY TEACHER LB Bruce Justice MD LAB BLOOD ORDERABLES Final Resu lt Performing Organization Address [facility] de Phone Number [facility] [address] [place] [address] * Cytomegalovirus (CMV) DNA PCR, quantitative (06/15/2024 10:01 AM INORGANIC CHEMISTRY TEACHER) CMV DNA qn Not Detected Not Detected IU/mL [facility] CMV DNA log IU/mL Not Detected Not Detected Log IU/mL [facility] Comment: (Note) For additional information, please refer to http://education.Beaut[employer].com/faq/CMVandEBVPCR (This link is being provided for informational/educational purposes only.) MD [facility] [address] [address],[address] [facility] [address] Laurita Deleon MD, PhD 06/15/2024 10:0 1 AM INORGANIC CHEMISTRY TEACHER 06/15/2024 10:02 AM INORGANIC CHEMISTRY TEACHER Narrative [facility] - 06/18/2024 10:27 AM INORGANIC CHEMISTRY TEACHER LB Bruce Justice MD [facility] Final Result Performing Organization Address City[facility]/ZIP Co de Phone Number [facility] [address] [place] [address], [address] [phone] * COPY(IES) SENT TO: (06/15/2024 10:01 AM INORGANIC CHEMISTRY TEACHER) COPY(IES) SENT TO: [facility] Comment: [facility] - COPY TO [address] [phone] 06/15/2024 10:0 1 AM INORGANIC CHEMISTRY TEACHER 06/15/2024 10:02 AM INORGANIC CHEMISTRY TEACHER Narrative [facility] - 06/18/2024 10:27 AM INORGANIC CHEMISTRY TEACHER LB Bruce Justice MD LAB BLOOD ORDERABLES Final Resu lt [facility] * (ABNORMAL) BK virus, DNA, quantitative (06/15/2024 10:01 AM INORGANIC CHEMISTRY TEACHER) Pathologist [facility] BK virus, PCR 41(A) Not Detected IU/mL [facility] BK Virus DNA, Real Time PCR 1.61(A) Not Detected Log IU/mL [facility] Comment: [facility] med fusion [address] [address],[address] [place] [address] Laurita Deleon MD, PhD 06/15/2024 10:0 1 AM INORGANIC CHEMISTRY TEACHER 06/15/2024 10:02 AM INORGANIC CHEMISTRY TEACHER Narrative [facility] - 06/18/2024 10:27 AM INORGANIC CHEMISTRY TEACHER LB Bruce Justice MD LAB MICROBIOLOGY - [facility] [employer]ANLE[employer] Final Result [facility] [address] [address], [address] [place] [address] * (ABNORMAL) CBC with auto differential (06/15/2024 10:01 AM INORGANIC CHEMISTRY TEACHER) Pathologist [facility] WBC 7.8 3.8 - 10.8 [...] [facility] 06/15/2024 10:0 1 AM INORGANIC CHEMISTRY TEACHER 06/15/2024 10:02 AM INORGANIC CHEMISTRY TEACHER Narrative [facility] - 06/18/2024 10:27 AM INORGANIC CHEMISTRY TEACHER LB Bruce Justice MD LAB BLOOD ORDERABLES Final Resu lt [facility] [address] [place] [address] * (ABNORMAL) Protein / creatinine ratio, urine, random (06/15/2024 10:01 AM INORGANIC CHEMISTRY TEACHER) Creatinine, ur 21 20 - 275 mg/dL [facility] Protein/creati nine ratio 35,000(H) 24 - 184 mg/g creat [facility] Protein/Creati nine Ratio 35.000(H) 0.024 - 0.184 mg/mg creat [facility] Protein, ur, quant 735(H) 5 - 24 mg/dL [facility] Comment: Verified by repeat analysis. 06/15/2024 10:0 1 AM INORGANIC CHEMISTRY TEACHER 06/15/2024 10:02 AM INORGANIC CHEMISTRY TEACHER Narrative [facility] - 06/18/2024 10:27 AM INORGANIC CHEMISTRY TEACHER LB Bruce Justice MD LAB URINE ORDERABLES Final Resu lt [facility] [address] [place] [address] * (ABNORMAL) Renal function panel (06/15/2024 10:01 AM INORGANIC CHEMISTRY TEACHER) Glucose 90 65 - 99 mg/dL [facility] [...] [facility] 06/15/2024 10:0 1 AM INORGANIC CHEMISTRY TEACHER 06/15/2024 10:02 AM INORGANIC CHEMISTRY TEACHER Narrative [facility] - 06/18/2024 10:27 AM INORGANIC CHEMISTRY TEACHER LB us Bruce Justice MD LAB BLOOD ORDERABLES Final Resu lt [facility] [address] [place] [address] * (ABNORMAL) Tacrolimus, Highly Sensitive, LC/MS/MS (05/11/2024 8:55 AM INORGANIC CHEMISTRY TEACHER) Pathologist [facility] Tacrolimus, Highly Sensitive, LC/MS/MS 1.2(L) mcg/L [facility] Comment: No definitive therapeutic or toxic ranges have been established. Optimal blood drug levels are influenced by type of transplant, patient response, time post- transplant, co-administration of other drugs, and drug formulation. The following trough range is a suggested guideline: 5.0-20.0 mcg/L. 05/11/2024 8:55 AM INORGANIC CHEMISTRY TEACHER 05/11/2024 8:56 AM INORGANIC CHEMISTRY TEACHER Narrative [facility] - 05/15/2024 2:37 AM INORGANIC CHEMISTRY TEACHER LB FASTING:YES FASTING: YES Bruce Justice MD LAB BLOOD ORDERABLES Final Resu lt [facility] [address] [place] [address] * Cytomegalovirus (CMV) DNA PCR, quantitative (05/11/2024 8:55 AM INORGANIC CHEMISTRY TEACHER) CMV DNA qn Not Detected Not Detected IU/mL [facility] CMV DNA log IU/mL Not Detected Not Detected Log IU/mL [facility] Comment: (Note) For additional information, please refer to http://education.[employer].com/faq/CMVandEBVPCR (This link is being provided for informational/educational purposes only.) [facility] [address] [address],[address] [facility] [id number] Laurita Deleon MD, PhD 05/11/2024 8:55 AM INORGANIC CHEMISTRY TEACHER 05/11/2024 8:56 AM INORGANIC CHEMISTRY TEACHER Narrative [facility] - 05/15/2024 2:37 AM INORGANIC CHEMISTRY TEACHER LB FASTING:YES FASTING: YES Bruce Justice MD LAB MICROBIOLOGY - GENERAL ORDE RABLES Final Result [facility] [address] [place] [address], [address] [place] [phone] * COPY(IES) SENT TO: (05/11/2024 8:55 AM INORGANIC CHEMISTRY TEACHER) COPY(IES) SENT TO: [facility] Comment: [facility] - COPY TO [facility] [address] [place] [address] 05/11/2024 8:55 AM INORGANIC CHEMISTRY TEACHER 05/11/2024 8:56 AM INORGANIC CHEMISTRY TEACHER Narrative [facility] - 05/15/2024 2:37 AM INORGANIC CHEMISTRY TEACHER LB FASTING:YES FASTING: YES us Bruce Justice MD LAB BLOOD ORDERABLES Final Resu lt [facility] * BK virus, DNA, quantitative (05/11/2024 8:55 AM INORGANIC CHEMISTRY TEACHER) Pathologist [facility] BK virus, PCR Not Detected Not Detected IU/mL [facility] BK Virus DNA, Real Time PCR Not Detected Not Detected Log IU/mL [facility] Comment: [facility] [address],[address] [facility] [address] Laurita Deleon MD, PhD 05/11/2024 8:55 AM INORGANIC CHEMISTRY TEACHER 05/11/2024 8:56 AM INORGANIC CHEMISTRY TEACHER Narrative [facility] - 05/15/2024 2:37 AM INORGANIC CHEMISTRY TEACHER LB FASTING:YES FASTING: YES us Bruce Justice MD LAB [facility]OLOG[facility] - [facility] Final Result Performing Organization Address [facility] Co de Phone Number [facility] [address] [place] [address], [address] [place] [phone] * (ABNORMAL) CBC with auto differential (05/11/2024 8:55 AM INORGANIC CHEMISTRY TEACHER) [facility] WBC 7.0 3.8 - 10.8 Thousand/u [...] % [facility] 05/11/2024 8:55 AM INORGANIC CHEMISTRY TEACHER 05/11/2024 8:56 AM INORGANIC CHEMISTRY TEACHER Narrative [facility] - 05/15/2024 2:37 AM INORGANIC CHEMISTRY TEACHER LB FASTING:YES FASTING: YES us Bruce Justice MD LAB BLOOD ORDERABLES Final Resu lt [facility] [address] [place] [address] * (ABNORMAL) Protein / creatinine ratio, urine, random (05/11/2024 8:55 AM INORGANIC CHEMISTRY TEACHER) Creatinine, ur 7(L) 20 - 275 mg/dL [facility] Protein/creati nine ratio 244,286(H) 24 - 184 mg/g creat [facility] Protein/Creati nine Ratio 244.286(H) 0.024 - 0.184 mg/mg creat [facility] Protein, ur, quant 1,710(H) 5 - 24 mg/dL [facility] Comment: Results verified by repeat analysis on dilution. 05/11/2024 8:55 AM INORGANIC CHEMISTRY TEACHER 05/11/2024 8:56 AM INORGANIC CHEMISTRY TEACHER Narrative [facility] - 05/15/2024 2:37 AM INORGANIC CHEMISTRY TEACHER LB FASTING:YES FASTING: YES us Bruce Justice MD LAB URINE ORDERABLES Final Resu lt Performing Organization Address City/[facility]/ZIP Co de Phone Number [facility] [address] [address] * (ABNORMAL) Renal function panel (05/11/2024 8:55 AM INORGANIC CHEMISTRY TEACHER) Pathologist [facility] Glucose 87 65 - 99 mg/dL [facility] [...] [facility] 05/11/2024 8:5 5 AM INORGANIC CHEMISTRY TEACHER 05/11/2024 8:56 AM INORGANIC CHEMISTRY TEACHER Narrative [facility] - 05/15/2024 2:37 AM INORGANIC CHEMISTRY TEACHER LB FASTING:YES FASTING: YES Bruce Justice MD LAB BLOOD ORDERABLES Final Resu lt Performing Organization Address City/[facility]/ZIP Co de Phone Number [facility] [employer] [address] [address] [address] * Hepatitis panel, acute Blood (12/03/2023 10:00 [...] - GENERAL OR DERABLES Final Result [facility] [id number] [address] Department [place] [address] from Last 3 Months or Most Recently Relevant to Health Maintenance
--- OUTSIDE RECORDS SUMMARY | 2024-08-06 00:28 | XMS_ITS | Encounter Summary ---
Author Organization [facility] Address [address] [place] [address] Care Team Providers Care Sizing Machine Tender Name Role Phone Nikkie Gordon MD Primary Care Provider [phone] Reason for Visit * Reason Comments Dialysis Visit Hemodialysis visit Encounter Details Date Type Department Care Team (Late st Contact Info) Description 06/04/2024 Chart Note [facility] [place] [address] [facility] [address] [place] [address] Stephenie Saenz MD [address] [facility] [address] [address] Dialysis Visit (Hemodialysis visit) Social [...] disease documented in this encounter Care Teams Sizing Machine Tender Relationship Specialty Start Date End Date Nikkie Gordon MD [address] [place] [id number] PCP - General Family Practice 04/04/23 documented as of this encounter
--- OUTSIDE RECORDS SUMMARY | 2024-08-06 00:28 | XMS_ITS | Encounter Summary ---
Author Organization [facility] Address [address] [place] [address] Phone Care Team Providers Care Process Engineer Name Role Phone Nikkie Gordon MD Primary Care Provider [phone] Encounter Details Date Type Department Care Team (Late st Contact Info) Description 08/13/2019 Orders Only [facility] [address] [place] [address] Trisha Bustillos MA [address] [place] [address] Chronic kidney disease, stage 3 (moderate) ([facility]) Social History Tobacco Use Types Packs/Day [...] (moderate) documented in this encounter Care Teams Process Engineer Relationship Specialty Start Date End Date Nikkie Gordon MD [address] [place] [address] PCP - General 01/24/20 documented as of this encounter
--- OUTSIDE RECORDS SUMMARY | 2024-08-06 00:28 | XMS_ITS | Clinical Summary ---
Author Organization [facility] Address [address] [facility] [place] [address] Care Team Providers Care Mobile Plant Operators Name Role Phone Nikkie Gordon MD Primary Care Provider [phone] Tyson Bales MD Unavailable Unavailable Nikkie Grodon MD Unavailable Source Comments [facility],non-owned Affiliates and Associated Physician Practices is amultiple site organization consisting of ambulatory clinics and hospital sitesin [place], [place], [place] and [place]. This disclosure is being madepursuant to the Care Everywhere program and may not contain all information available regarding this patient. Last updated 18.[facility] Allergies Active Allergy Reactions Criticality Noted Date [...] Overview (08/26/2018): S/P [id number] in 2007 in [facility], followed by Dr Adriel Riley in [facility] in [facility]. Essential hypertension 11/15/2015 Chronic kidney disease-mineral and [...] patient. The patient is established with the [facility] surgical clinic and an electronic message [...] approximately 13% higher for people identified as -Malaysian. eGFR by MDRD 18(L) > OR = [...] 29 U/L [facility] Comment: Test Performed at: [facility] [address] [place] [address] SHAN HOUSTON DO,MPH Blood BLOOD SPECIMEN / Unknown 10/10/2018 9:30 AM CDT 10/10/2018 9:34 AM CDT Jaiden Galicia PA-C LAB - CHEMISTRY ORDERABLES [facility] [id number] [place] [address] from Last 3 Months or Most Recently Relevant to Health Maintenance Advance Directives * Full Code (Latest Code Status on File) Date Activated Date Inactivated Comments 08/26/2018 4:53 PM 08/28/2018 1:03 AM Care Teams Mobile Plant Operators Relationship Specialty Start Date End Date Nikkie Gordon MD [address] [place] [address] PCP - General Family Medicine 11/06/21 Nikkie Gordon MD [address] [place] [address] PCP - [facility] 10/27/23 Tyson Bales MD [address] [place] [address] Cardiovascular Disease 11/06/21
--- OUTSIDE RECORDS SUMMARY | 2024-08-06 00:28 | XMS_ITS | Encounter Summary ---
Author Organization [facility] Address [address] [place] [address] Phone Care Team Providers Care Research Test Engine Evaluator Name Role Phone Nikkie Gordon MD Primary Care Provider [phone] Encounter Details Date Type Department Care Team (Late st Contact Info) Description 07/16/2019 Orders Only [facility] [address] [place] [address] Trisha Bustillos MA [address] [place] [address] Chronic kidney disease, stage 3 (moderate) ([facility]) Social History Tobacco Use Types [...] (moderate) documented in this encounter Care Teams Research Test Engine Evaluator Relationship Specialty Start Date End Date Nikkie Gordon MD [address] [place] [address] PCP - General 01/24/20 documented as of this encounter
--- OUTSIDE RECORDS SUMMARY | 2024-08-06 00:28 | XMS_ITS | Encounter Summary ---
Author Organization [facility] Address [address] [place] [address] Phone Care Team Providers Care Brick Tender Name Role Phone Nikkie Gordon MD Primary Care Provider [phone] Encounter Details Date Type Department Care Team ([facility] st Contact Info) Description 05/21/2019 Orders Only [facility] [address] [address] [address] [place] [address] Trisha Bustillos MA [address] [facility] [address] [facility] [address] [facility] [place] [address] Chronic kidney disease, stage 3 (moderate) ([facility]) Social History Tobacco Use Types Packs/Day [...] (moderate) documented in this encounter Care Teams Brick Tender Relationship Specialty Start Date End Date Nikkie Gordon MD [address] [place] [address] PCP - General 01/24/20 documented as of this encounter
--- OUTSIDE RECORDS SUMMARY | 2024-08-06 00:29 | XMS_ITS | Referral Summary ---
Author Organization [facility] Medical Office Building [address] Address [address] [place] [address] Care Team Providers Care Fringe Knotter Name Role Phone Nikkie Gordon MD Primary Care Provider [phone] Nikkie Gordon MD Unavailable [phone] Susan Jones MD Unavailable [phone] Kristian Ram MD Unavailable [phone] Chelo Herzog RN Unavailable [phone] Davidson Martinez MD Unavailable [phone] Tyson Bales MD Unavailable Kristian Ram MD Unavailable [phone] Anna Clarke MD Unavailable Encounters Date Type Department Care Team Description 07/20/2024 Orders Only [facility] Nephrology [address] [facility] Advanced Medicine 5th [place] [address] [place] [address] Bruce Justice MD 06/15/2024 Orders Only [facility] Nephrology [address] [facility] 5th [place] [address] [place] [address] Bruce Justice MD 05/27/2024 Telephone [facility] Urology [address] [facility] Medical Office Building [address] [place] [address] Suha Marks LPN 05/26/2024 Telephone [facility] Urology [address] [facility] Medical Office Building [address] [place] [address] Kendrick SuhaMARQUIS mai 05/24/2024 5:50 PM TRANSITIONAL CARE MANAGER Anesthesia Event [facility] Operating Room [address] [place] [address] Sloan Osborn MD Heuvelman, Katherine Marie, NP 05/11/2024 Orders Only [facility] Nephrology [address] [facility] Medicine 5th [place] [address] [place] [address] Bruce Justice MD from Last [...] 03/01/2023 Assessment & Plan (03/02/2023 12:00 PM TRANSITIONAL CARE MANAGER): Body mass index is 34.15 kg/m . - discussed risks of obesity and association with chronic medical problems including HTN, DM, and NEREYDA - advised patient on importance of maintaining a diet and exercise regimen including cardiovascular and weight-bearing exercises - nutrition consultation Physical deconditioning 06/01/2021 Assessment & Plan (06/07/2021 2:29 PM TRANSITIONAL CARE MANAGER): Multifactorial but mostly driven by her neuropathy and malnutrition - PT/OT recommending SNF. Pt not amenable. - Home PT/OT with 24 hr supervision. States son can provide supervision. Assessment & Plan (06/06/2021 2:58 PM TRANSITIONAL CARE MANAGER): Multifactorial but mostly driven by her neuropathy -PT/OT recommending SNF. Pt not amenable. Assessment & Plan (06/05/2021 7:10 PM TRANSITIONAL CARE MANAGER): Multifactorial but mostly driven by her neuropathy -PT/OT recommending SNF, she is considering but may still elect to discharge home Assessment & Plan (06/04/2021 9:50 AM TRANSITIONAL CARE MANAGER): Multifactorial but mostly driven by her neuropathy -PT/OT recommending SNF, she is considering but may still elect to discharge home Assessment & Plan (06/03/2021 10:29 AM TRANSITIONAL CARE MANAGER): Multifactorial but mostly driven by her neuropathy -PT/OT recommending SNF, she is considering but may still elect to discharge home Assessment & Plan (06/02/2021 12:57 PM TRANSITIONAL CARE MANAGER): Multifactorial but mostly driven by her neuropathy -PT/OT recommending SNF, she is considering but may still elect to discharge home Assessment & Plan (06/01/2021 12:38 PM TRANSITIONAL CARE MANAGER): Multifactorial but mostly driven by her neuropathy -PT/OT recommending SNF, she is considering but may still elect to discharge home Pyelonephritis of transplanted kidney vs UTI 06/2021 Assessment & Plan (06/07/2021 2:25 PM TRANSITIONAL CARE MANAGER): Spiked temperature of 38.2 on 05/30 once [...] collection Assessment & Plan (06/06/2021 2:50 PM TRANSITIONAL CARE MANAGER): Spiked temperature of 38.2 on 05/30 once [...] ) Assessment & Plan (06/05/2021 7:14 PM TRANSITIONAL CARE MANAGER): Spiked temperature of 38.2 on 05/30 once [...] duration. Assessment & Plan (06/04/2021 9:51 AM TRANSITIONAL CARE MANAGER): Spiked temperature of 38.2 on 05/30 once [...] sample Assessment & Plan (06/03/2021 10:33 AM TRANSITIONAL CARE MANAGER): Spiked temperature of 38.2 on 05/30 once [...] cultures Assessment & Plan (06/02/2021 12:53 PM TRANSITIONAL CARE MANAGER): Spiked temperature of 38.2 on 05/30 once [...] resulting Assessment & Plan (06/01/2021 12:34 PM TRANSITIONAL CARE MANAGER): Spiked temperature of 38.2 on 05/30 once [...] cultures Assessment & Plan (05/31/2021 8:40 AM TRANSITIONAL CARE MANAGER): Spiked temperature overnight of 38.2 once scheduled [...] 05/28/2021 Assessment & Plan (06/06/2021 2:58 PM TRANSITIONAL CARE MANAGER): Poor appetite, encourage protein supplementations. Nutrition consult Assessment & Plan (06/05/2021 7:16 PM TRANSITIONAL CARE MANAGER): Poor appetite, encourage protein supplementations. Nutrition consult Assessment & Plan (06/04/2021 9:52 AM TRANSITIONAL CARE MANAGER): Poor appetite, encourage protein supplementations. Nutrition consult Assessment & Plan (06/03/2021 10:29 AM TRANSITIONAL CARE MANAGER): Poor appetite, encourage protein supplementations. Nutrition consult Assessment & Plan (06/02/2021 12:55 PM TRANSITIONAL CARE MANAGER): Poor appetite, encourage protein supplementations. Nutrition consult Assessment & Plan (06/01/2021 12:36 PM TRANSITIONAL CARE MANAGER): Poor appetite, encourage protein supplementations. Nutrition consult Assessment & Plan (05/31/2021 11:07 AM TRANSITIONAL CARE MANAGER): Poor appetite, encourage protein supplementations. Nutrition consult Assessment & Plan (05/30/2021 10:51 AM TRANSITIONAL CARE MANAGER): Poor appetite, encourage protein supplementations. Nutrition consult Assessment & Plan (05/29/2021 1:35 PM TRANSITIONAL CARE MANAGER): Poor appetite, encourage protein supplementations. Nutrition consult Leg pain, bilateral 05/26/2021 Assessment & Plan (06/07/2021 2:27 PM TRANSITIONAL CARE MANAGER): According to the patient, this began with [...] amenable. Assessment & Plan (06/06/2021 2:54 PM TRANSITIONAL CARE MANAGER): According to the patient, this began with [...] amenable. Assessment & Plan (06/05/2021 7:17 PM TRANSITIONAL CARE MANAGER): According to the patient, this began with [...] DVT Assessment & Plan (06/04/2021 9:49 AM TRANSITIONAL CARE MANAGER): According to the patient, this began with [...] DVT Assessment & Plan (06/03/2021 10:29 AM TRANSITIONAL CARE MANAGER): According to the patient, this began with [...] DVT Assessment & Plan (06/02/2021 1:01 PM TRANSITIONAL CARE MANAGER): According to the patient, this began with [...] DVT Assessment & Plan (06/01/2021 12:38 PM TRANSITIONAL CARE MANAGER): According to the patient, this began with [...] DVT Assessment & Plan (05/31/2021 11:07 AM TRANSITIONAL CARE MANAGER): According to the patient, this began with [...] DVT Assessment & Plan (05/30/2021 10:50 AM TRANSITIONAL CARE MANAGER): According to the patient, this began with [...] DVT Assessment & Plan (05/29/2021 1:33 PM TRANSITIONAL CARE MANAGER): According to the patient, this began with [...] DVT Assessment & Plan (05/28/2021 10:52 AM TRANSITIONAL CARE MANAGER): According to the patient, this began with [...] sciatica Assessment & Plan (05/27/2021 9:49 AM TRANSITIONAL CARE MANAGER): According to the patient, this began with swelling after her recent discharge from the hospital after Medications were changed (diuretics). Tramadol is effective for her. Will start with tramadol 25 mg TID prn. Monitor edema and sxs. Pt walks with walker, PT/OT evaluations Dopplers to r/o DVT s/p COVID Assessment & Plan (05/26/2021 5:26 PM TRANSITIONAL CARE MANAGER): According to the patient, this began with swelling after her recent discharge from the hospital after Medications were changed (diuretics). Tramadol is effective for her. Will start with tramadol 25 mg TID prn. Monitor edema and sxs. Pt walks with walker, PT/OT evaluations Pneumonia due to COVID-19 virus 05/10/2021 Assessment & Plan (05/15/2021 2:07 PM TRANSITIONAL CARE MANAGER): Symptom onset 05/02/21, positive test 05/09 at OSH (see care everywhere for confirmation) Cont O2, wean as able Cont decadron (d#1=05/10) Remdesivir continued w renal txp's blessing, s/p 5 days VTE ppx with SQ heparin Assessment & Plan (05/14/2021 3:22 PM TRANSITIONAL CARE MANAGER): Symptom onset 05/02/21, positive test 05/09 at OSH (see care everywhere for confirmation) Cont O2, wean as able Cont decadron (d#1=05/10) Remdesivir continued w renal txp's blessing, d#5 today VTE ppx with SQ heparin Assessment & Plan (05/13/2021 11:08 AM TRANSITIONAL CARE MANAGER): Symptom onset 05/02/21, positive test 05/09 at OSH (see care everywhere for confirmation) Cont O2, wean as able Cont decadron (d#1=05/10) Remdesivir continued w renal txp's blessing, d#4 today VTE ppx with SQ heparin Assessment & Plan (05/12/2021 12:01 PM TRANSITIONAL CARE MANAGER): Symptom onset 05/02/21, positive test 05/09 at OSH (see care everywhere for confirmation) Cont O2, wean as able Cont decadron (d#1=05/10) Remdesivir continued w renal txp's blessing, d#3 today VTE ppx with SQ heparin Assessment & Plan (05/11/2021 1:29 PM TRANSITIONAL CARE MANAGER): Onset of symptoms ~05/02/21 with worsening dyspnea, fatigue and progressive symptoms prompting presentation. Now on 5L supplemental oxygen. 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 RTO 12m. I will send the results to the portal. If she has not heard in a week, to call the office. Breast swelling 04/04/2021 Assessment & Plan (04/04/2021 3:20 PM TRANSITIONAL CARE MANAGER): She is s/p bx. I will look [...] 04/04/2021 Assessment & Plan (04/04/2021 3:20 PM TRANSITIONAL CARE MANAGER): The patient was encouraged to stop smoking. Techniques for smoking cessation were discussed to the patient's level of interest. Preoperative testing 11/09/2020 Hydrohepatosis 09/22/2020 Overview (09/22/2020): Added automatically from request for surgery [id number] Hypernatremia 08/05/2020 Assessment & Plan (08/05/2020 11:08 AM CDT): Due to Na bicarb drip ordered for correction of metabolic acidosis. - discontinue bicarb drip - will likely resolve, no need for further testing unless otherwise indicated Hydronephrosis, right 09/21/2019 Overview (09/21/2019): Added automatically from request for surgery [id number] Other proteinuria 05/05/2019 Obstruction of right ureter 02/19/2019 Overview (02/19/2019): Added automatically from request for surgery [id number] Obesity, Class II, BMI 35-39.9 01/29/2019 Assessment & Plan (05/27/2021 9:48 AM TRANSITIONAL CARE MANAGER): RD consult while here for diet education Pt has low appetite, not eating much Supplements ordered Assessment & Plan (05/26/2021 5:17 PM TRANSITIONAL CARE MANAGER): RD consult while here for diet education Hydronephrosis 12/11/2018 Overview (12/11/2018): Added automatically from request for surgery [id number] Uterine fibroid 12/02/2018 Assessment & Plan (12/05/2018 [...] 11/30/2018 Assessment & Plan (05/28/2021 10:50 AM TRANSITIONAL CARE MANAGER): Continue iron supplements Assessment & Plan (05/27/2021 9:47 AM TRANSITIONAL CARE MANAGER): Continue iron supplements Assessment & Plan (05/26/2021 5:18 PM TRANSITIONAL CARE MANAGER): Continue iron supplements Assessment & Plan (12/05/2018 [...] (11/27/2018): Added automatically from request for surgery [id number] Assessment & Plan (12/31/2023 9:55 AM CDT): [...] electives. Assessment & Plan (06/07/2021 2:28 PM TRANSITIONAL CARE MANAGER): History of ureteral obstruction from known fibroid and having ureteral exchanges every 3 months with urology (next scheduled on 06/06). - Urethral stent exchanged 06/05. - Follow up with urology outpatient Assessment & Plan (06/06/2021 2:53 PM TRANSITIONAL CARE MANAGER): History of ureteral obstruction from known fibroid and having ureteral exchanges every 3 months with urology (next scheduled on 06/06). - Urethral stent exchanged 06/05. Assessment & Plan (06/05/2021 7:15 PM TRANSITIONAL CARE MANAGER): History of ureteral obstruction from known fibroid and having ureteral exchanges every 3 months with urology (next scheduled on 06/06). - Urethral stent exchanged 06/05. Assessment & Plan (06/04/2021 9:47 AM TRANSITIONAL CARE MANAGER): History of ureteral obstruction from known fibroid and having ureteral exchanges every 3 months with urology (next scheduled on 06/06). -Discussed with urology here as her exchange is actually scheduled for [facility] on Fri and they are going to try and fit her on the OR schedule here -Will need to be NPO on Friday night Assessment & Plan (06/03/2021 10:28 AM TRANSITIONAL CARE MANAGER): History of ureteral obstruction from known fibroid and having ureteral exchanges every 3 months with urology (next scheduled on 06/06). Assessment & Plan (06/02/2021 12:53 PM TRANSITIONAL CARE MANAGER): History of ureteral obstruction from known fibroid and having ureteral exchanges every 3 months with urology (next scheduled on 06/06). Assessment & Plan (06/01/2021 12:35 PM TRANSITIONAL CARE MANAGER): History of ureteral obstruction from known fibroid and having ureteral exchanges every 3 months with urology (next scheduled on 06/06). Assessment & Plan (05/31/2021 11:06 AM TRANSITIONAL CARE MANAGER): History of ureteral obstruction from known fibroid and having ureteral exchanges every 3 months with urology (next scheduled on 06/06). Assessment & Plan (05/30/2021 10:48 AM TRANSITIONAL CARE MANAGER): History of ureteral obstruction from known fibroid and having ureteral exchanges every 3 months with urology (next scheduled on 06/06). Assessment & Plan (05/29/2021 1:31 PM TRANSITIONAL CARE MANAGER): History of ureteral obstruction from known fibroid and having ureteral exchanges every 3 months with urology (next scheduled on 06/06). Assessment & Plan (05/28/2021 10:50 AM TRANSITIONAL CARE MANAGER): ureteral obstruction from known fibroid and having ureteral exchanges every 3 months with urology (next scheduled on 06/06). Assessment & Plan (05/27/2021 9:47 AM TRANSITIONAL CARE MANAGER): ureteral obstruction from known fibroid and having ureteral exchanges every 3 months with urology (next scheduled on 06/06). Assessment & Plan (05/26/2021 5:16 PM TRANSITIONAL CARE MANAGER): ureteral obstruction from known fibroid and having [...] not think this is the case. - Plant Sprayer consulted for uterine fibroid - MRI Pelvis W/O contrast - Management of stent per urology. Assessment & Plan (11/29/2018 12:15 PM CDT): Renal U/S at OSH with hydronephrosis of transplanted kidney now s/p ureteral stent by urology 11/28. Found to have extrinsic compression of ureter from likely uterine fibroid. -Management of stent per urology. -Agree with non-emergent sprinkler helper consult for management of fibroids. Hyperlipidemia, unspecified 11/27/2018 Assessment & Plan (03/02/2023 12:01 PM TRANSITIONAL CARE MANAGER): Continue patient's home atorvastatin 10 mg daily Hypertension, essential 11/27/2018 Assessment & Plan (05/14/2021 3:24 PM TRANSITIONAL CARE MANAGER): Continue home amlodipine, labetalol Assessment & Plan (05/10/2021 1:21 AM TRANSITIONAL CARE MANAGER): Continue home amlodipine, labetalol Assessment & Plan [...] 11/27/2018 Assessment & Plan (06/07/2021 2:27 PM TRANSITIONAL CARE MANAGER): S/p renal transplant (2007, b/l Cr 2.7-3.4) [...] 06/21. Assessment & Plan (06/06/2021 2:52 PM TRANSITIONAL CARE MANAGER): S/p renal transplant (2007, b/l Cr 2.7-3.4) [...] qday Assessment & Plan (06/05/2021 7:09 PM TRANSITIONAL CARE MANAGER): S/p renal transplant (2007, b/l Cr 2.7-3.4) [...] monitoring Assessment & Plan (06/04/2021 9:52 AM TRANSITIONAL CARE MANAGER): S/p renal transplant (2007, b/l Cr 2.7-3.4) [...] monitoring Assessment & Plan (06/03/2021 10:29 AM TRANSITIONAL CARE MANAGER): S/p renal transplant (2007, b/l Cr 2.7-3.4) [...] monitoring Assessment & Plan (06/02/2021 12:55 PM TRANSITIONAL CARE MANAGER): S/p renal transplant (2007, b/l Cr 2.7-3.4) [...] monitoring Assessment & Plan (06/01/2021 12:37 PM TRANSITIONAL CARE MANAGER): S/p renal transplant (2007, b/l Cr 2.7-3.4) [...] monitoring Assessment & Plan (05/31/2021 8:40 AM TRANSITIONAL CARE MANAGER): S/p renal transplant (2007, b/l Cr 2.7-3.4) [...] monitoring. Assessment & Plan (05/30/2021 10:52 AM TRANSITIONAL CARE MANAGER): S/p renal transplant (2007, b/l Cr 2.7-3.4) [...] monitoring. Assessment & Plan (05/29/2021 1:36 PM TRANSITIONAL CARE MANAGER): S/p renal transplant (2007, b/l Cr 2.7-3.4) [...] monitoring. Assessment & Plan (05/28/2021 10:53 AM TRANSITIONAL CARE MANAGER): s/p renal transplant (2007, b/l Cr 2.7-3.4) [...] following/managing Assessment & Plan (05/27/2021 9:46 AM TRANSITIONAL CARE MANAGER): s/p renal transplant (2007, b/l Cr 2.7-3.4) [...] following/managing Assessment & Plan (05/26/2021 5:11 PM TRANSITIONAL CARE MANAGER): s/p renal transplant (2007, b/l Cr 2.7-3.4) [...] following/managing Assessment & Plan (05/15/2021 2:07 PM TRANSITIONAL CARE MANAGER): ESRD 2/2 hypertensive nephrosclerosis s/p renal transplant (2007, b/l Cr 2.7- 3.4) Tacrolimus trough above goal, decreased dose 5mg bid Renal transplant service comanaging (nb home dose 9am/8pm) Home prednisone 5mg daily held while on dexamethasone Has been off myfortic (h/o bk/cmv viremia) Assessment & Plan (05/14/2021 3:22 PM TRANSITIONAL CARE MANAGER): ESRD 2/2 hypertensive nephrosclerosis s/p renal transplant (2007, b/l Cr 2.7- 3.4) Tacrolimus trough above goal, decreased dose 5mg bid Renal transplant service comanaging (nb home dose 9am/8pm) Home prednisone 5mg daily held while on dexamethasone Has been off myfortic (h/o bk/cmv viremia) Assessment & Plan (05/13/2021 11:09 AM TRANSITIONAL CARE MANAGER): ESRD 2/2 hypertensive nephrosclerosis s/p renal transplant (2007, b/l Cr 2.7- 3.4) Tacrolimus trough above goal, decreased dose 5mg bid Renal transplant service comanaging (nb home dose 9am/8pm) Home prednisone 5mg daily held while on dexamethasone Assessment & Plan (05/12/2021 12:01 PM TRANSITIONAL CARE MANAGER): ESRD 2/2 hypertensive nephrosclerosis s/p renal transplant [...] following Assessment & Plan (05/11/2021 1:16 PM TRANSITIONAL CARE MANAGER): ESRD 2/2 hypertensive nephrosclerosis s/p renal transplant [...] (12/05/2018 2:28 PM CDT): Renal transplant at [facility], followed now reportedly by Dr. [...] with information in Care Everywhere from her layout operator. She has not seen Dr. Ram yet. She has had 3 no shows. 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 Tac goal 4-7 per notes - BMP and tac trough on Friday per Transplant nephrology, [facility] and have faxed to PCP, script provided - Discharge today. I have paged her primary layout operator office. I have faxed the d/c summary to her PCP as well. Assessment & Plan (12/04/2018 10:32 AM CDT): Renal transplant at [facility], followed now reportedly by Dr. [...] with information in Care Everywhere from her layout operator. She has not seen Dr. Ram yet. She has had 3 no shows. 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 Tac goal 4-7 per notes - Further mgmt of MARIBELL per nephrology. Assessment & Plan (12/03/2018 10:35 AM CDT): Renal transplant at [facility], followed now reportedly by Dr. Rome Ram although his clinic stated she has not been seen there and has no showed the last 3 clinic appts. - Patient has a second chart - Ronan Moreira with information in Care Everywhere from her layout operator. She has not seen Dr. Ram [...] (12/02/2018 12:03 PM CDT): Renal transplant at [facility], followed now reportedly by Dr. [...] (12/01/2018 5:23 PM CDT): Renal transplant at [facility], followed now by Dr. Rome Ram. Reported baseline cr 1.3 - Transplant nephrology following, mgmt of immunosuppression per their team - Tac level in AM (low today) - Attempting to obtain records from Dr. Ram Assessment & Plan (11/30/2018 5:38 PM CDT): Renal transplant at [facility], followed now by Dr. Rome Ram. Reported baseline cr 1.3 - Transplant nephrology following, mgmt of immunosuppression per their team Acute on chronic diastolic (congestive) heart fa ilure 11/27/2018 Assessment & Plan (06/07/2021 2:28 PM TRANSITIONAL CARE MANAGER): TTE (02/2021) with EF 70%, nl RV/LV size and systolic function and moderate pericardia effusion without collapse (managed conservatively with diuresis). -Repeat TTE with EF 70%, impaired relaxation and stable moderate pericardial effusion -Continue BP control and no signs of volume overload currently Assessment & Plan (06/06/2021 2:57 PM TRANSITIONAL CARE MANAGER): TTE (02/2021) with EF 70%, nl RV/LV size and systolic function and moderate pericardia effusion without collapse (managed conservatively with diuresis). -Repeat TTE with EF 70%, impaired relaxation and stable moderate pericardial effusion -Continue BP control and no signs of volume overload currently Assessment & Plan (06/05/2021 7:15 PM TRANSITIONAL CARE MANAGER): TTE (02/2021) with EF 70%, nl RV/LV size and systolic function and moderate pericardia effusion without collapse (managed conservatively with diuresis). -Repeat TTE with EF 70%, impaired relaxation and stable moderate pericardial effusion -Continue BP control and no signs of volume overload currently Assessment & Plan (06/04/2021 9:42 AM TRANSITIONAL CARE MANAGER): TTE (02/2021) with EF 70%, nl RV/LV size and systolic function and moderate pericardia effusion without collapse (managed conservatively with diuresis). -Repeat TTE with EF 70%, impaired relaxation and stable moderate pericardial effusion -Continue BP control and no signs of volume overload currently Assessment & Plan (06/03/2021 10:27 AM TRANSITIONAL CARE MANAGER): TTE (02/2021) with EF 70%, nl RV/LV size and systolic function and moderate pericardia effusion without collapse (managed conservatively with diuresis). -Repeat TTE with EF 70%, impaired relaxation and stable moderate pericardial effusion -Continue BP control and no signs of volume overload currently Assessment & Plan (06/02/2021 12:50 PM TRANSITIONAL CARE MANAGER): TTE (02/2021) with EF 70%, nl RV/LV size and systolic function and moderate pericardia effusion without collapse (managed conservatively with diuresis). -Repeat TTE with EF 70%, impaired relaxation and stable moderate pericardial effusion -Continue BP control and no signs of volume overload currently Assessment & Plan (06/01/2021 12:32 PM TRANSITIONAL CARE MANAGER): TTE (02/2021) with EF 70%, nl RV/LV size and systolic function and moderate pericardia effusion without collapse (managed conservatively with diuresis). -Repeat TTE with EF 70%, impaired relaxation and stable moderate pericardial effusion -Continue BP control and no signs of volume overload currently Assessment & Plan (05/31/2021 11:04 AM TRANSITIONAL CARE MANAGER): TTE (02/2021) with EF 70%, nl RV/LV size and systolic function and moderate pericardia effusion without collapse (managed conservatively with diuresis). -Repeat TTE with EF 70%, impaired relaxation and stable moderate pericardial effusion -Continue BP control and no signs of volume overload currently Assessment & Plan (05/30/2021 10:47 AM TRANSITIONAL CARE MANAGER): TTE (02/2021) with EF 70%, nl RV/LV size and systolic function and moderate pericardia effusion without collapse (managed conservatively with diuresis). -Repeat TTE with EF 70%, impaired relaxation and stable moderate pericardial effusion -Continue BP control and no signs of volume overload currently Assessment & Plan (05/29/2021 1:31 PM TRANSITIONAL CARE MANAGER): TTE (02/2021) with EF 70%, nl RV/LV size and systolic function and moderate pericardia effusion without collapse (managed conservatively with diuresis). -Repeat TTE with EF 70%, impaired relaxation and stable moderate pericardial effusion -Continue BP control and no signs of volume overload currently Assessment & Plan (05/28/2021 10:49 AM TRANSITIONAL CARE MANAGER): TTE (02/2021) with EF 70%, nl RV/LV size and systolic function and moderate pericardia effusion without collapse (managed conservatively with diuresis). Repeat TTE ordered Assessment & Plan (05/27/2021 9:46 AM TRANSITIONAL CARE MANAGER): TTE (02/2021) with EF 70%, nl RV/LV size and systolic function and moderate pericardia effusion without collapse (managed conservatively with diuresis). Repeat TTE ordered Assessment & Plan (05/26/2021 5:20 PM TRANSITIONAL CARE MANAGER): TTE (02/2021) with EF 70%, nl RV/LV [...] Do not think TTE or HILLARY would ticket dispenser changer at this time but patient would [...] Do not think TTE or HILLARY would ticket dispenser changer at this time but patient would [...] Do not think TTE or HILLARY would ticket dispenser changer at this time but patient would likely benefit from cardiology input as outpatient. NEREYDA on CPAP 11/27/2018 Assessment & Plan (12/30/2023 11:11 PM CDT): Cont CPAP Assessment & Plan (06/07/2021 2:28 PM TRANSITIONAL CARE MANAGER): Pt uses home nightly CPAP Assessment & Plan (06/06/2021 2:58 PM TRANSITIONAL CARE MANAGER): Pt uses home nightly CPAP Assessment & Plan (06/05/2021 7:15 PM TRANSITIONAL CARE MANAGER): Pt uses home nightly CPAP Assessment & Plan (06/04/2021 9:49 AM TRANSITIONAL CARE MANAGER): Pt uses home nightly CPAP Assessment & Plan (06/03/2021 10:29 AM TRANSITIONAL CARE MANAGER): Pt uses home nightly CPAP Assessment & Plan (06/02/2021 12:54 PM TRANSITIONAL CARE MANAGER): Pt uses home nightly CPAP Assessment & Plan (06/01/2021 12:36 PM TRANSITIONAL CARE MANAGER): Pt uses home nightly CPAP Assessment & Plan (05/31/2021 11:07 AM TRANSITIONAL CARE MANAGER): Pt uses home nightly CPAP Assessment & Plan (05/30/2021 10:50 AM TRANSITIONAL CARE MANAGER): Pt uses home nightly CPAP Assessment & Plan (05/29/2021 1:34 PM TRANSITIONAL CARE MANAGER): Pt uses home nightly CPAP Assessment & Plan (05/28/2021 10:50 AM TRANSITIONAL CARE MANAGER): Pt uses home CPAP Assessment & Plan (05/27/2021 9:47 AM TRANSITIONAL CARE MANAGER): Pt uses home CPAP Assessment & Plan (05/26/2021 5:15 PM TRANSITIONAL CARE MANAGER): Pt uses home CPAP Assessment & Plan [...] HD Assessment & Plan (03/02/2023 11:59 AM TRANSITIONAL CARE MANAGER): No signs of exacerbation. Last TTE done [...] ETOH. Assessment & Plan (05/15/2021 2:07 PM TRANSITIONAL CARE MANAGER): Recent admission for pericardial effusion and volume overload. TTE with large pericardial effusion was seen by cardiology and thoracic surgery with plan for conservative management and diuresis Have not directly reimaged pericardial effusion thus far during admission Currently HDS, continue anti-hypertensives Holding Lasix as above Assessment & Plan (05/14/2021 3:23 PM TRANSITIONAL CARE MANAGER): Recent admission for pericardial effusion and volume overload. TTE with large pericardial effusion was seen by cardiology and thoracic surgery with plan for conservative management and diuresis Have not directly reimaged pericardial effusion thus far during admission Currently HDS, continue anti-hypertensives Holding Lasix as above Assessment & Plan (05/13/2021 11:09 AM TRANSITIONAL CARE MANAGER): Recent admission for pericardial effusion and volume overload. TTE with large pericardial effusion was seen by cardiology and thoracic surgery with plan for conservative management and diuresis -currently HDS, continue anti-hypertensives -holding diuretics as elsewhere Assessment & Plan (05/12/2021 12:01 PM TRANSITIONAL CARE MANAGER): Recent admission for pericardial effusion and volume overload. TTE with large pericardial effusion was seen by cardiology and thoracic surgery with plan for conservative management and diuresis -currently HDS, continue anti-hypertensives -holding diuretics as elsewhere Assessment & Plan (05/11/2021 1:14 PM TRANSITIONAL CARE MANAGER): Recent admission for pericardial effusion and volume [...] PM CDT): Patient's s/p DDKT at the [facility] in 2007. Of note patient has also been followed at [facility], but most recently continues to follow her care at [facility] since 2016. -Cr somewhat improved with thomas catheter placement. Urology c/s; per their recommendations, d/c and attempt void trial. -Patient diuresed with 40 Lasix d/t volume overload, SOB; UOP 3.6L -BK pending, CMV and HLA negative -Thought to be d/t new diagnosis of heart failure Assessment & Plan (10/26/2018 6:35 PM CDT): Patient's s/p DDKT at the [facility] in 2007. Of note patient has also been followed at [facility], but most recently continues to follow her care at [facility] since 2016. -Patient recently admitted in 08/2018 d/t MARIBELL, baseline Cr was 1.2-1.4 until 06/2018 where it has been found to be 2.2-2.8. She was evaluated by urology who recommended IR c/s; and the patient left the hospital AMA -She re-presents to [facility] 10/25 with MARIBELL, BLE edema, and SOB. [...] 10/25/2018 Assessment & Plan (03/02/2023 11:59 AM TRANSITIONAL CARE MANAGER): Likely secondary to ESRD. Continue as planned under the ESRD - continue IV iron supplements q 2 weeks. - EPO 82321 units IV t.i.d. Friday on days not getting hemodialysis - CBC daily Assessment & Plan (06/07/2021 2:27 PM TRANSITIONAL CARE MANAGER): Hgb on admission related to anemia of [...] bleed Assessment & Plan (06/05/2021 7:09 PM TRANSITIONAL CARE MANAGER): Hgb on admission related to anemia of [...] bleed Assessment & Plan (06/04/2021 9:42 AM TRANSITIONAL CARE MANAGER): Hgb on admission related to anemia of [...] bleed Assessment & Plan (06/03/2021 10:27 AM TRANSITIONAL CARE MANAGER): Hgb on admission related to anemia of [...] bleed Assessment & Plan (06/02/2021 12:50 PM TRANSITIONAL CARE MANAGER): Hgb on admission related to anemia of [...] bleed Assessment & Plan (06/01/2021 12:32 PM TRANSITIONAL CARE MANAGER): Hgb on admission related to anemia of [...] bleed Assessment & Plan (05/31/2021 11:04 AM TRANSITIONAL CARE MANAGER): Hgb on admission related to anemia of [...] AM Assessment & Plan (05/30/2021 10:45 AM TRANSITIONAL CARE MANAGER): Hgb on admission related to anemia of CKD as well as component of HERNANDEZ. Baseline Hgb ~8 - Hgb matteo of 6.3 and s/p 1 unit PRBCs with improvement to ~7 since - Continue iron supplements - No signs/symptoms of bleeding, continue to monitor & transfuse Hgb <7 - Repeat iron panel/ferritin with AM labs Assessment & Plan (05/29/2021 1:29 PM TRANSITIONAL CARE MANAGER): Hgb on admission related to anemia of CKD as well as component of HERNANDEZ. Baseline Hgb ~8 - Hgb matteo of 6.3 and s/p 1 unit PRBCs with improvement to ~7 since - Continue iron supplements - No signs/symptoms of bleeding, continue to monitor & transfuse Hgb <7 Assessment & Plan (05/28/2021 10:50 AM TRANSITIONAL CARE MANAGER): S/p 1 unit pRBCs 05/26 Recent Labs Lab Units 05/28/21 0519 05/27/21 0433 05/26/21 1308 HEMOGLOBIN g/dL 7.7* 7.7* 7.7* Transfuse prn to keep Hgb>7 Anemia of chronic disease Hgb on admission related to anemia of CKD as well as component of HERNANDEZ. -continue iron supplements Assessment & Plan (05/27/2021 9:47 AM TRANSITIONAL CARE MANAGER): S/p 1 unit pRBCs 05/26 Recent Labs Lab Units 05/27/21 0433 05/26/21 1308 05/26/21 0415 HEMOGLOBIN g/dL 7.7* 7.7* 6.3* Transfuse prn to keep Hgb>7 Anemia of chronic disease Hgb on admission related to anemia of CKD as well as component of HERNANDEZ. -continue iron supplements Assessment & Plan (05/26/2021 5:15 PM TRANSITIONAL CARE MANAGER): S/p 1 unit pRBCs 05/26 Recent Labs Lab Units 05/26/21 1308 05/26/21 0415 HEMOGLOBIN g/dL 7.7* 6.3* Transfuse prn to keep Hgb>7 Anemia of chronic disease Hgb on admission related to anemia of CKD as well as component of HERNANDEZ. -continue iron supplements Assessment & Plan (05/14/2021 3:24 PM TRANSITIONAL CARE MANAGER): Hgb 9.2. Baseline ~8-9 related to anemia of CKD as well as component of HERNANDEZ. -continue iron supplements Assessment & Plan (05/10/2021 1:19 AM TRANSITIONAL CARE MANAGER): Hgb 9.2. 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 Plan - Consult [...] 11:39 AM CDT): -s/p DDKT 2007 at [facility] -Immunosuppression: cont tacrolimus 7mg QAM/6mg QPM, prednisone 5. She states she has not been on CellCept or Myfortic since 2007 or 2008. - Renal transplant in agreement with d/c today - Tac trough adequate Assessment & Plan (10/27/2018 4:48 PM CDT): -s/p DDKT 2007 at [facility] -Immunosuppression: cont tacrolimus 7mg QAM/6mg QPM, prednisone 5. She states she has not been on CellCept or Myfortic since 2007 or 2008. - Check tac trough - Followed by renal transplant service Assessment & Plan (10/26/2018 2:45 PM CDT): -s/p DDKT 2007 at [facility] -Immunosuppression: cont tacrolimus 7mg QAM/6mg QPM, prednisone 5. She states she has not been on CellCept or Myfortic since 2007 or 2008. - Check tac trough - Followed by renal transplant service Assessment & Plan (10/25/2018 3:31 AM CDT): -s/p DDKT 2007 at [facility] -Immunosuppression: cont tacrolimus 7mg QAM/6mg [...] 04/21/2023 Assessment & Plan (03/02/2023 11:58 AM TRANSITIONAL CARE MANAGER): Pt was not able to get HD 03/01/23 due to verbal altercation at HD center. She presented to [facility] for urgent HD which she tolerated. SW on consult to help find additional facility. Per EMR Hx of Kidney transplant for ESRD in the setting of HTN 2009 preformed at [facility]. Her transplant unfortunately failed due [...] being evaluated for additional kidney transplant at [facility]. Left radiocephalic AV fistula, per vascular team Fistula duplex needed in future and will probably warrant fistulogram. - Continue EPO, calcitriol, folic acid, IV iron q2 weeks, - HD today per nephrology, Friday and Friday - KRISHNA Consult to help with alternative HD arrangement, Pt would like to be seen at [facility]. - Continue tacrolimus with trough levels as needed, Prednisone 5mg daily. - Lokelma as needed for HyperK - Daily CBC, CMP, mag, phos - Kidney Imaging as needed. - Avoid nephrotoxic drugs - Nephrology following appreciate recs. - Follow up with transplant team at [facility] on discharge for continued workup for kidney transplant. Constipation 05/31/2021 03/03/2023 Assessment & Plan (03/02/2023 12:00 PM TRANSITIONAL CARE MANAGER): Patient reports chronic constipation and has not have a bowel movement since Friday. Abdominal x-ray showed mild to moderate amount of stool in colon and no obstructive bowel pattern noted. Patient has allergy to MiraLax and Dulcolax base which cause muscle pain. - s/p x2 lactulose will continue as needed to help with BM. - Dulcolax daily Assessment & Plan (06/01/2021 12:32 PM TRANSITIONAL CARE MANAGER): Now resolved, will discontinue lactulose and continue PRN meds Assessment & Plan (05/31/2021 11:05 AM TRANSITIONAL CARE MANAGER): Reports no bowel movement since 05/27 -Will start lactulose BID today (miralax allergy) and continue scheduled docusate-senna -If no BM by this evening then can use PRN suppository that's ordered History of COVID-19 05/29/2021 06/05/19 Assessment & Plan (06/04/2021 9:42 AM TRANSITIONAL CARE MANAGER): Positive on 05/10/21 during prior admission and briefly required O2 at that time, but was weaned off prior to discharge. S/p remdesivir and dexamethasone during that admit. Stable on room air this admission and now COVID recovered Assessment & Plan (06/03/2021 10:28 AM TRANSITIONAL CARE MANAGER): Positive on 05/10/21 during prior admission and briefly required O2 at that time, but was weaned off prior to discharge. S/p remdesivir and dexamethasone during that admit. Stable on room air this admission and now COVID recovered Assessment & Plan (06/02/2021 1:01 PM TRANSITIONAL CARE MANAGER): Positive on 05/10/21 during prior admission and briefly required O2 at that time, but was weaned off prior to discharge. S/p remdesivir and dexamethasone during that admit -Stable on room air this admission and now COVID recovered Assessment & Plan (06/01/2021 12:35 PM TRANSITIONAL CARE MANAGER): -Positive on 05/10/21 during prior admission and [...] today Assessment & Plan (05/31/2021 11:06 AM TRANSITIONAL CARE MANAGER): -Positive on 05/10/21 during prior admission and [...] now Assessment & Plan (05/30/2021 10:48 AM TRANSITIONAL CARE MANAGER): -Positive on 05/10/21 during prior admission and [...] 3 Assessment & Plan (05/31/2021 11:02 AM TRANSITIONAL CARE MANAGER): Now resolved, secondary to MARIBELL on CKD, K of 7.9 w/ EKG changes on admit - S/p iHD overnight and 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 Assessment & Plan (05/28/2021 10:51 AM TRANSITIONAL CARE MANAGER): - Noted 7.9 w/ EKG changes in am at OSH. - S/p medical temporization with 6.9 upon d/c from OSH to [facility]. - K now down to 5.8 s/p temporization but overnight went upto 6.8. - S/p iHD overnight - Will monitor closely for iHD needs. - Monitor closely. Assessment & Plan (05/27/2021 9:49 AM TRANSITIONAL CARE MANAGER): - Noted 7.9 w/ EKG changes in am at OSH. - S/p medical temporization with 6.9 upon d/c from OSH to [facility]. - K now down to 5.8 s/p temporization but overnight went upto 6.8. - S/p iHD overnight - Will monitor closely for iHD needs. - Monitor closely. Assessment & Plan (05/26/2021 5:07 PM TRANSITIONAL CARE MANAGER): - Noted 7.9 w/ EKG changes in am at OSH. - S/p medical temporization with 6.9 upon d/c from OSH to [facility]. - K now down to 5.8 s/p temporization but overnight went upto 6.8. - S/p iHD overnight. - Will monitor closely for iHD needs. - Monitor closely. Renal lesion 05/12/2021 06/03/2021 Assessment & Plan (06/02/2021 12:57 PM TRANSITIONAL CARE MANAGER): Admission UA was negative for infection and [...] drainage/sampling Assessment & Plan (05/30/2021 10:51 AM TRANSITIONAL CARE MANAGER): Per sign-out, patient does not have complicated [...] UA Assessment & Plan (05/29/2021 1:34 PM TRANSITIONAL CARE MANAGER): Per sign-out, patient does not have complicated UTI symptoms or evidence of infection on UA. However, Renal Transplant with duplex 05/25 showed no NENITA but new mild hydro and focal heterogenous echogenic area concerning for developing abscess. Pt had no sxs of dysuria; renal tx team has low suspicion for UTI Urine is clear/light 05/27 Assessment & Plan (05/28/2021 10:49 AM TRANSITIONAL CARE MANAGER): Per sign-out, patient does not have complicated UTI symptoms or evidence of infection on UA. However, Renal Transplant with duplex 05/25 showed no NENITA but new mild hydro and focal heterogenous echogenic area concerning for developing abscess. Pt had no sxs of dysuria; renal tx team has low suspicion for UTI Urine is clear/light 05/27 Assessment & Plan (05/27/2021 9:47 AM TRANSITIONAL CARE MANAGER): Per sign-out, patient does not have complicated UTI symptoms or evidence of infection on UA. However, Renal Transplant with duplex 05/25 showed no NENITA but new mild hydro and focal heterogenous echogenic area concerning for developing abscess. Pt had no sxs of dysuria; renal tx team has low suspicion for UTI Urine is clear/light 05/27 Assessment & Plan (05/26/2021 5:23 PM TRANSITIONAL CARE MANAGER): Per sign-out, patient does not have complicated UTI symptoms or evidence of infection on UA. However, Renal Transplant with duplex 05/25 showed no NENITA but new mild hydro and focal heterogenous echogenic area concerning for developing abscess. No Urine culture found this admission. Will order. Assessment & Plan (05/14/2021 3:22 PM TRANSITIONAL CARE MANAGER): Pyuria at osh, no culture data available S/p empiric rx with ceftriaxone out of abundance of caution, finished Assessment & Plan (05/13/2021 11:09 AM TRANSITIONAL CARE MANAGER): Pyuria at osh, no culture data available On empiric rx with ceftriaxone Culture here no growth but has been on abx Plan to finish course of therapy, abx d#4 today Assessment & Plan (05/12/2021 12:04 PM TRANSITIONAL CARE MANAGER): Pyuria at osh, no culture data available On empiric rx with ceftriaxone Culture here no growth but has been on abx Plan to finish course of therapy, abx d#3 today Pericardial effusion 02/28/2021 022 Assessment & Plan (06/04/2021 9:50 AM TRANSITIONAL CARE MANAGER): TTE (02/2021) with EF 70%, nl RV/LV [...] compromise Assessment & Plan (06/01/2021 12:36 PM TRANSITIONAL CARE MANAGER): TTE (02/2021) with EF 70%, nl RV/LV [...] compromise Assessment & Plan (05/31/2021 11:07 AM TRANSITIONAL CARE MANAGER): TTE (02/2021) with EF 70%, nl RV/LV [...] compromise Assessment & Plan (05/30/2021 10:51 AM TRANSITIONAL CARE MANAGER): TTE (02/2021) with EF 70%, nl RV/LV [...] compromise Assessment & Plan (05/29/2021 1:37 PM TRANSITIONAL CARE MANAGER): TTE (02/2021) with EF 70%, nl RV/LV [...] compromise Assessment & Plan (05/28/2021 10:49 AM TRANSITIONAL CARE MANAGER): TTE (02/2021) with EF 70%, nl RV/LV [...] ordered Assessment & Plan (05/27/2021 9:48 AM TRANSITIONAL CARE MANAGER): TTE (02/2021) with EF 70%, nl RV/LV [...] ordered Assessment & Plan (05/26/2021 5:19 PM TRANSITIONAL CARE MANAGER): TTE (02/2021) with EF 70%, nl RV/LV [...] injury superimp osed on chronic kidney disease ([facility]/HCC) 10/25/2018 06/07/2021 Assessment & Plan (06/07/2021 2:26 PM TRANSITIONAL CARE MANAGER): History of ESRD 2/2 hypertensive nephrosclerosis s/p [...] downtrend Assessment & Plan (06/06/2021 2:51 PM TRANSITIONAL CARE MANAGER): History of ESRD 2/2 hypertensive nephrosclerosis s/p [...] baseline Assessment & Plan (06/05/2021 7:08 PM TRANSITIONAL CARE MANAGER): History of ESRD 2/2 hypertensive nephrosclerosis s/p [...] baseline Assessment & Plan (06/04/2021 9:42 AM TRANSITIONAL CARE MANAGER): History of ESRD 2/2 hypertensive nephrosclerosis s/p [...] baseline Assessment & Plan (06/03/2021 10:26 AM TRANSITIONAL CARE MANAGER): History of ESRD 2/2 hypertensive nephrosclerosis s/p [...] baseline Assessment & Plan (06/02/2021 1:00 PM TRANSITIONAL CARE MANAGER): History of ESRD 2/2 hypertensive nephrosclerosis s/p [...] now Assessment & Plan (06/01/2021 12:30 PM TRANSITIONAL CARE MANAGER): History of ESRD 2/2 hypertensive nephrosclerosis s/p [...] today Assessment & Plan (05/31/2021 11:03 AM TRANSITIONAL CARE MANAGER): History of ESRD 2/2 hypertensive nephrosclerosis s/p [...] BMP Assessment & Plan (05/30/2021 10:44 AM TRANSITIONAL CARE MANAGER): History of ESRD 2/2 hypertensive nephrosclerosis s/p [...] yesterday Assessment & Plan (05/29/2021 1:27 PM TRANSITIONAL CARE MANAGER): History of ESRD 2/2 hypertensive nephrosclerosis s/p [...] on 05/25-05/26, no further sessions since and MARIEBLL is improving and hyperkalemia resolved - Continue to monitor urine output, ~2.6 L yesterday Assessment & Plan (05/28/2021 10:48 AM TRANSITIONAL CARE MANAGER): 65F with history of ESRD 2/2 hypertensive nephrosclerosis s/p renal transplant (2007, b/l Cr 2.7-3.4), anemia of CKD, NEREYDA on CPAP, HFpEF transferred from OSH to [facility] for acute kidney failure and hyperkalemia. s/p [...] 2.62* Assessment & Plan (05/27/2021 9:45 AM TRANSITIONAL CARE MANAGER): 65F with history of ESRD 2/2 hypertensive nephrosclerosis s/p renal transplant (2007, b/l Cr 2.7-3.4), anemia of CKD, NEREYDA on CPAP, HFpEF transferred from OSH to [facility] for acute kidney failure and hyperkalemia. s/p [...] pending. Assessment & Plan (05/26/2021 5:06 PM TRANSITIONAL CARE MANAGER): 65F with history of ESRD 2/2 hypertensive nephrosclerosis s/p renal transplant (2007, b/l Cr 2.7-3.4), anemia of CKD, NEREYDA on CPAP, HFpEF transferred from OSH to [facility] for acute kidney failure and hyperkalemia. s/p [...] pending. Assessment & Plan (05/15/2021 2:07 PM TRANSITIONAL CARE MANAGER): Admit creatinine 6.1, baseline 2.7-3.4 in recent [...] dosing Assessment & Plan (05/14/2021 3:21 PM TRANSITIONAL CARE MANAGER): Admit creatinine 6.1, baseline 2.7-3.4 in recent [...] dosing Assessment & Plan (05/13/2021 11:07 AM TRANSITIONAL CARE MANAGER): Admit creatinine 6.1, baseline 2.7-3.4 in recent [...] tacro Assessment & Plan (05/12/2021 11:57 AM TRANSITIONAL CARE MANAGER): Admit creatinine 6.1, baseline 2.7-3.4 in recent months Noted 6-7 days poor intake prior to arrival Some improvement thus far w fluids Still poor intake CMV neg Metabolic acidosis worsening in spite of oral bicarb Plan small fluids/bicarb infusion today, cont oral bicarb Monitor response w repeat BMP in AM Assessment & Plan (05/11/2021 1:29 PM TRANSITIONAL CARE MANAGER): Baseline Cr 2.7-3.4. On admission at OSH [...] to 2.8 since June 2018. Ultrasound at [facility] on 08/26 showed severe hydronephrosis of [...] 04/21/2023 Assessment & Plan (03/02/2023 11:58 AM TRANSITIONAL CARE MANAGER): Blood pressure is controlled - continue amlodipine 10 mg daily, labetalol 200 mg t.i.d., Lasix 40 mg b.i.d.. Assessment & Plan (06/07/2021 2:27 PM TRANSITIONAL CARE MANAGER): - Continue home amlodipine & labetalol Assessment & Plan (06/06/2021 2:53 PM TRANSITIONAL CARE MANAGER): - Continue home amlodipine & labetalol Assessment & Plan (06/05/2021 7:09 PM TRANSITIONAL CARE MANAGER): - Continue home amlodipine & labetalol Assessment & Plan (06/04/2021 9:48 AM TRANSITIONAL CARE MANAGER): Restarted home Amlodipine & Labetalol, blood pressure within goal Assessment & Plan (06/03/2021 10:28 AM TRANSITIONAL CARE MANAGER): Restarted home Amlodipine & Labetalol, blood pressure within goal Assessment & Plan (06/02/2021 12:53 PM TRANSITIONAL CARE MANAGER): Improving BP -Restarted home Amlodipine & Labetalol Assessment & Plan (06/01/2021 12:35 PM TRANSITIONAL CARE MANAGER): Improving BP -Restarted home Amlodipine & Labetalol Assessment & Plan (05/31/2021 11:06 AM TRANSITIONAL CARE MANAGER): Improving BP -Restarted home Amlodipine yesterday and will resume home Labetalol today Assessment & Plan (05/30/2021 10:49 AM TRANSITIONAL CARE MANAGER): Currently BP at goal and has improved -Will restart home Amlodipine 10 mg qday today and continue to hold Labetolol for now Assessment & Plan (05/29/2021 1:32 PM TRANSITIONAL CARE MANAGER): Currently BP at goal -Labetolol and amlodipine both on hold due to softer pressures on admit, resume as tolerated Assessment & Plan (05/28/2021 10:50 AM TRANSITIONAL CARE MANAGER): Currently, BP near goal Labetolol and amlodipine both on hold monitor and titrate meds. BP at goal 05/27, 05/28 Assessment & Plan (05/27/2021 9:47 AM TRANSITIONAL CARE MANAGER): Currently, BP near goal Labetolol and amlodipine both on hold monitor and titrate meds. BP at goal 05/27 Assessment & Plan (05/26/2021 5:13 PM TRANSITIONAL CARE MANAGER): Currently, BP near goal Labetolol and amlodipine [...] 04/21/2023 Assessment & Plan (03/02/2023 12:00 PM TRANSITIONAL CARE MANAGER): Will continue home CPAP. Assessment & Plan (05/14/2021 3:23 PM TRANSITIONAL CARE MANAGER): Continue home CPAP (though has been using O2 instead) Assessment & Plan (05/10/2021 1:21 AM TRANSITIONAL CARE MANAGER): Continue home CPAP Assessment & Plan (10/26/2018 [...] drink = 0.6 oz pur e alcohol) [facility] Utilities Answer Date Recorded In [...] declined 01/01/2024 How often do you attend jainism or worship serv ices? Patient declined 01/01/2024 Do you belong to any clubs o r organizations such as jainism groups, unions, fraternal or athletic groups, or [...] place to sleep or slept in a intermediate (including now)? No 04/23/2023 Housing Stability Vital [...] any time in the past 12 m [facility], were you homeless or living in a intermediate (including now)? Patient declined 01/01/2024 Personal Safety [...] 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, QUALITY DIRECTOR, ENRRIQUE) 03/03/2023 Comments No Sex and Gender Information Value Date Recorded Sex Assigned at Not on file Legal Sex Female 1:10 PM TRANSITIONAL CARE MANAGER Gender Identity Not on file Sexual Orientation [...] 87.1 kg (192 lb) 05/05/2024 3:16 PM TRANSITIONAL CARE MANAGER Height 162.6 cm (5' 4 ) 05/05/2024 3:16 PM TRANSITIONAL CARE MANAGER Body Mass Index 32.96 05/05/2024 3:16 PM TRANSITIONAL CARE MANAGER Plan of Treatment Not on file Medical Devices Implanted Type Area Trades Helper Device Identifier Shelf Expiration Date Model / Serial / Lot [employer] Universa 6fr 24cm Radiopaque Graduate Firm Monofilament Tether [id number] - Sn/A - [id number] Implanted:Qty: 1 on 05/08/2022 by Timi Hernandez MD at [facility] Stent Right: Ureter [employer] 02/15/2025 [id number] / N/A / [id number] [employer] Universa 6fr 24cm Radiopaque Graduate Firm Monofilament Tether [id number] - [id number] Implanted:Qty: 1 on 08/14/2022 by Timi Hernandez MD at [facility] Stent Right: Ureter [employer] 12/19/2024 [id number] / / [id number] [employer] Stent Ureteral Set Double Pigtail Radiopaque Tip Universa 6ear30aj Polyurethane Hydrophilic Coated [id number] - [id number] Implanted:Qty: 1 on 09/03/2023 at [facility] Right: Ureter [employer] 10/16/2025 [id number] / / [id number] [employer] Stent Ureteral Set Double Pigtail Radiopaque Tip Universa 5hsi05yr Polyurethane Hydrophilic Coated [id number] - [id number] Implanted:Qty: 1 on 01/21/2024 at [facility] Right: Ureter [employer] 07/02/2024 [id number] / / [id number] Explanted Type Area Trades Helper Device Identifier Shelf Expiration Date Model / Serial / Lot [employer] Maddi [id number] 4.8fr 14cm Taper Tip Bladder Raoul Low Profile Large Inner Lumen Latex Free - [id number] Implanted:Qty: 1 on 11/28/2018 by Timi Hernandez MD at [facility] Explanted:Qty: 1 on 02/08/2019 by Ricardo Pineda MD at [facility] Stent N/A: Ureter [employer] Maddi [id number] 07/15/2019 [id number] / / [id number] Description:Transplant kidne y ureter; stent intact [employer] Maddi [id number] 4.8fr 14cm Taper Tip Bladder Raoul Low Profile Large Inner Lumen Latex Free - [id number] - [id number] Implanted:Qty: 1 on 02/08/2019 by Ricardo Pineda MD at [facility] Explanted:Qty: 1 on 05/03/2019 by Blaire Miller MD at [facility] Stent Right: Ureter [employer] Maddi 06/18/2020 [id number] / [id number] / [employer] Maddi [id number] 4.8fr 14cm Taper Tip Bladder Raoul Low Profile Large Inner Lumen Latex Free - [id number] Implanted:Qty: 1 on 05/03/2019 by Blaire Miller MD at [facility] Explanted:Qty: 1 on 09/13/2019 by Timi Hernandez MD at [facility] Stent Ureter [employer] Maddi [id number] 08/09/2021 [id number] 70 / / [id number] [employer] [id number] Inlay [place] 4.7fr 14cm Pusher Fluoro Marker Atraumatic Insertion Latex Free - [id number] Implanted:Qty: 1 on 03/08/2020 by Timi Hernandez MD at [facility] Explanted:Qty: 1 on 01/31/2021 by iTmi Hernandez MD at [facility] Stent Right: Ureter [employer] 11/27/2021 [id number] / / [id number] [employer] [id number] Set Stent 14cm 4.7fr Linden Mandril Small 2 Pigtail Curve - [id number] - [id number] Implanted:Qty: 1 on 08/23/2020 by Timi Hernandez MD at [facility] Explanted:Qty: 1 on 01/31/2021 by Timi Hernandez MD at [facility] Stent Right: Ureter [employer] 05/23/2023 [id number] / [id number] / [id number] [employer] [id number] Set Stent 14cm 4.7fr Linden Mandril Small 2 Pigtail Curve - [id number] Implanted:Qty: 1 on 11/15/2020 by Timi Hernandez MD at [facility] Explanted:Qty: 1 on 01/31/2021 by Timi Hernandez MD at [facility] Stent Right: Ureter [employer] 09/20/2023 [id number] / / [id number] [employer] [id number] Inlay [place] 6fr 24cm Pusher Fluoro Marker Atraumatic Insertion Latex Free - [id number] Implanted:Qty: 1 on 06/05/2021 by Gary Urban MD at [facility] Explanted:Qty: 1 on 11/14/2021 by Timi Hernandez MD at [facility] Stent Right: Ureter [employer] [id number] 10/24/2025 [id number] / / [id number] [employer] Universa 6fr 24cm Radiopaque Graduate Firm Monofilament Tether [id number] - [id number] Implanted:Qty: 1 on 11/14/2021 by Timi Hernandez MD at [facility] Explanted:Qty: 1 on 02/13/2022 at [facility] Stent Right: Ureter [employer] 07/19/2024 [id number] / / [id number] [employer] Universa 6fr 24cm Radiopaque Graduate Firm Monofil[employer] Tether [id number] - [id number] Implanted:Qty: 1 on 02/13/2022 by Timi Hernandez MD at [facility] Explanted:Qty: 1 on 05/08/2022 by Timi Hernandez MD at [facility] Stent [employer] 10/08/2024 [id number] / / [id number] [employer] Universa 6fr 20cm Radiopaque Positioner Monofilament Tether 2 S84359 - [id number] - [id number] Implanted:Qty: 1 on 11/06/2022 by Timi Hernandez MD at [facility] Explanted:Qty: 1 on 03/17/2023 by Carson Gatica DO at [facility] Stent Right: Ureter [employer] 02/18/2025 [id number] / [id number] / [id number] [employer] Universa 6fr 20cm Radiopaque Positioner Monofilament Tether 2 I70043 - Sn/A - [id number] Implanted:Qty: 1 on 06/04/2023 by Timi Hernandez MD at [facility] Explanted:Qty: 1 on 01/21/2024 by Neel Rodriguez MD at [facility] Stent Right: Ureter [employer] 07/02/2024 [id number] / N/A / [id number] Description:Implant pause co mpleted prior to opening implant on sterile field [employer] Maddi [id number] 4.8fr 16cm Taper Tip Bladder Raoul Low Profile Large Inner Lumen Latex Free - [id number] Implanted:Qty: 1 on 09/13/2019 by Timi Hernandez MD at [facility] Explanted:Qty: 1 on 03/08/2020 at [facility] Right: Ureter [employer] Am[employer]i 09/28/2020 [id number] / / [employer] [id number] Inlay [place] 4.7fr 14cm Pusher Fluoro Marker Atraumatic Insertion Latex Free - [id number] Implanted:Qty: 1 on 12/08/2019 by Timi Hernandez MD at [facility] Explanted:Qty: 1 on 06/07/2020 by Timi Hernandez MD at [facility] Right: Ureter [employer] 11/27/2021 [id number] / / [id number] [employer] [id number] Inlay [place] 4.7fr 14cm Pusher Fluoro Marker Atraumatic Insertion Latex Free - [id number] Implanted:Qty: 1 on 06/07/2020 by Timi Hernandez MD at [facility] Explanted:Qty: 1 on 01/31/2021 by Timi Hernandez MD at [facility] Right: Ureter [employer] 11/27/2021 [id number] / / [id number] [employer] [id number] Set Stent 14cm 4.7fr Linden Mandril Small 2 Pigtail Curve - [id number] Implanted:Qty: 1 on 01/31/2021 by Timi Hernandez MD at [facility] Explanted:Qty: 1 on 06/05/2021 by Gary Urban MD at [facility] Urethra [employer] [id number] 07/15/2022 [id number] / / [id number] Description:Intact and compl ete [employer] Universa 6fr 20cm Radiopaque Positioner Monofilament Tether 2 [id number] - [id number] Implanted:Qty: 1 on 03/17/2023 by Carson Gatica DO at [facility] Explanted:Qty: 1 on 06/04/2023 by Timi Hernandez MD at [facility] Right: Ureter [employer] [id number] 10/24/2025 [id number] / / [id number] Procedures Procedure Name Priority Date/Time Associated Diagnosis [...] HIGHLY SENSITIVE, LC/MS/MS Routine 06/15/2024 10:01 AM TRANSITIONAL CARE MANAGER PROTEIN / CREATININE RATIO, URINE, RANDOM Routine 06/15/2024 10:01 AM TRANSITIONAL CARE MANAGER RENAL FUNCTION PANEL Routine 06/15/2024 10:01 AM TRANSITIONAL CARE MANAGER CBC WITH AUTO DIFFERENTIAL Routine 06/15/2024 10:01 AM TRANSITIONAL CARE MANAGER COPY(IES) SENT TO: Routine 06/15/2024 10:01 AM TRANSITIONAL CARE MANAGER BK VIRUS, DNA, QUANTITATIVE Routine 06/15/2024 10:01 AM TRANSITIONAL CARE MANAGER CYTOMEGALOVIRUS (CMV) DNA, QUANT GEN LAB Routine 06/15/2024 10:01 AM TRANSITIONAL CARE MANAGER PROTEIN / CREATININE RATIO, URINE, RANDOM Routine 05/11/2024 8:55 AM TRANSITIONAL CARE MANAGER RENAL FUNCTION PANEL Routine 05/11/2024 8:55 AM TRANSITIONAL CARE MANAGER TACROLIMUS, HIGHLY SENSITIVE, LC/MS/MS Routine 05/11/2024 8:55 AM TRANSITIONAL CARE MANAGER CBC WITH AUTO DIFFERENTIAL Routine 05/11/2024 8:55 AM TRANSITIONAL CARE MANAGER COPY(IES) SENT TO: Routine 05/11/2024 8: 55 AM TRANSITIONAL CARE MANAGER CYTOMEGALOVIRUS (CMV) DNA, QUANT GEN LAB Routine 05/11/2024 8:55 AM TRANSITIONAL CARE MANAGER BK VIRUS, DNA, QUANTITATIVE Routine 05/11/2024 8:55 AM TRANSITIONAL CARE MANAGER HEPATITIS PANEL, ACUTE STAT 10:00 AM CDT [...] CDT) Tacrolimus, Highly Sensitive, LC/MS/MS <1.0(L) mcg/L [facility] Comment: Verified by repeat analysis. No [...] BLOOD ORDERABLES Final Resu lt [facility] [address] [place] [address] * Cytomegalovirus (CMV) DNA PCR, quantitative (07/20/2024 8:35 AM CDT) CMV DNA qn Not Detected Not Detected IU/mL [facility] CMV DNA log IU/mL Not Detected Not Detected Log IU/mL [facility] Comment: (Note) For additional information, please refer to http://education.JIT Solaire/faq/CMVandEBVPCR (This link is being provided for informational/educational purposes only.) [facility] [address] [place] [address],[address] [place] [address] Laurita Deleon MD, PhD 07/20/2024 8:35 AM CDT 07/20/2024 8:37 AM CDT Narrative [facility] - 07/24/2024 2:46 PM CDT LB FASTING:YES FASTING: YES us Bruce Justice MD LAB MICROBIOLOGY - [facility] Final Result Performing Organization Address City/[facility]/ZIP Co de Phone Number [facility] [address] [place] [address], [address] [address] * COPY(IES) SENT TO: (07/20/2024 8:35 AM CDT) COPY(IES) SENT TO: [facility] Comment: [facility] - COPY TO [facility] [address] [place] [address] 07/20/2024 8:35 AM CDT 07/20/2024 8:37 AM CDT Narrative [facility] - 07/24/2024 2:46 PM CDT LB FASTING:YES FASTING: YES us Bruce Justice MD LAB BLOOD ORDERABLES Final Resu lt [facility] * (ABNORMAL) BK virus, DNA, quantitative (07/20/2024 8:35 AM CDT) Pathologist [facility] BK virus, PCR <21.5(A) Not Detected IU/mL [facility] Comment: Detected BK Virus DNA was detected below 21.5 IU/mL. Viral load in this range cannot be accurately quantifi BK Virus DNA, Real Time PCR <1.33(A) Not Detected Log IU/mL [facility] Comment: [facility] [address] [address],[address] [facility] [id number] Laurita Deleon MD, PhD 07/20/2024 8:35 AM CDT 07/20/2024 8:37 AM CDT Narrative [facility] - 07/24/2024 2:46 PM CDT LB FASTING:YES FASTING: YES Bruce Justice MD LAB MICROBIOLOGY - [facility] Final Result [facility] [address] [place] [address], [address] [place] [address] * CBC with auto differential (07/20/2024 8:35 AM CDT) Pathologist [facility] WBC 7.2 3.8 - 10.8 Thousand/u [...] BLOOD ORDERABLES Final Resu lt [facility] [address] [place] [address] * (ABNORMAL) Protein / creatinine ratio, urine, [...] LAB URINE ORDERABLES Final Resu lt [facility] [address] [address] [place] [address] * (ABNORMAL) Renal function panel (07/20/2024 8:35 AM CDT) Pathologist [facility] Glucose 92 65 - 99 mg/dL [facility] [...] BLOOD ORDERABLES Final Resu lt [facility] [address] [place] [place] [address] * (ABNORMAL) Tacrolimus, Highly Sensitive, LC/MS/MS (06/15/2024 10:01 AM TRANSITIONAL CARE MANAGER) Pathologist [facility] Tacrolimus, Highly Sensitive, LC/MS/MS <1.0(L) mcg/L [facility] Comment: Verified by repeat analysis. No definitive therapeutic or toxic ranges have been established. Optimal blood drug levels are influenced by type of transplant, patient response, time post- transplant, co-administration of other drugs, and drug formulation. The following trough range is a suggested guideline: 5.0-20.0 mcg/L. 06/15/2024 10:0 1 AM TRANSITIONAL CARE MANAGER 06/15/2024 10:02 AM TRANSITIONAL CARE MANAGER Narrative [facility] - 06/18/2024 10:27 AM TRANSITIONAL CARE MANAGER LB Bruce Justice MD LAB BLOOD ORDERABLES Final Resu lt [facility] [address] [place] [address] * Cytomegalovirus (CMV) DNA PCR, quantitative (06/15/2024 10:01 AM TRANSITIONAL CARE MANAGER) [facility] CMV DNA qn Not Detected Not Detected IU/mL [facility] CMV DNA log IU/mL Not Detected Not Detected Log IU/mL [facility] Comment: (Note) For additional information, please refer to http://education.JIT Solaire/faq/CMVandEBVPCR (This link is being provided for informational/educational purposes only.) [facility] [address] [address],[address] [place] [address] Laurita Deleon MD, PhD 06/15/2024 10:0 1 AM TRANSITIONAL CARE MANAGER 06/15/2024 10:02 AM TRANSITIONAL CARE MANAGER Narrative [facility] - 06/18/2024 10:27 AM TRANSITIONAL CARE MANAGER LB Bruce Justice MD LAB MICROBIOLOGY - GENERAL ORDE RABLES Final Result [facility] [address] [place] [address], [address] [place] [address] * COPY(IES) SENT TO: (06/15/2024 10:01 AM TRANSITIONAL CARE MANAGER) COPY(IES) SENT TO: [facility] Comment: [facility] - COPY TO [facility] [address] [place] [address] 06/15/2024 10:0 1 AM TRANSITIONAL CARE MANAGER 06/15/2024 10:02 AM TRANSITIONAL CARE MANAGER Narrative [facility] - 06/18/2024 10:27 AM TRANSITIONAL CARE MANAGER LB Bruce Justice MD LAB BLOOD ORDERABLES Final Resu lt [facility] * (ABNORMAL) BK virus, DNA, quantitative (06/15/2024 10:01 AM TRANSITIONAL CARE MANAGER) Pathologist [facility] BK virus, PCR 41(A) Not Detected IU/mL [facility] BK Virus DNA, Real Time PCR 1.61(A) Not Detected Log IU/mL [facility] Comment: F med fusion [address] [address],[address] [place] [address] [facility] Dmitriy Deleon MD, PhD 06/15/2024 10:0 1 AM TRANSITIONAL CARE MANAGER 06/15/2024 10:02 AM TRANSITIONAL CARE MANAGER Narrative [facility] - 06/18/2024 10:27 AM TRANSITIONAL CARE MANAGER LB us Bruce Justice MD LAB [facility]BIOLOGY - [facility] Final Result [facility] [address] [place] [address], [address] [place] [phone] * (ABNORMAL) CBC with auto differential (06/15/2024 10:01 AM TRANSITIONAL CARE MANAGER) WBC 7.8 3.8 - 10.8 Thousand/u L [...] [facility] 06/15/2024 10:0 1 AM TRANSITIONAL CARE MANAGER 06/15/2024 10:02 AM TRANSITIONAL CARE MANAGER Narrative [facility] - 06/18/2024 10:27 AM TRANSITIONAL CARE MANAGER LB us Bruce Justice MD LAB BLOOD ORDERABLES Final Resu lt [facility] [address] [address] [place] [address] * (ABNORMAL) Protein / creatinine ratio, urine, random (06/15/2024 10:01 AM TRANSITIONAL CARE MANAGER) Creatinine, ur 21 20 - 275 mg/dL [facility] Protein/creati nine ratio 35,000(H) 24 - 184 mg/g creat [facility] Protein/Creati nine Ratio 35.000(H) 0.024 - 0.184 mg/mg creat [facility] Protein, ur, quant 735(H) 5 - 24 mg/dL [facility] Comment: Verified by repeat analysis. 06/15/2024 10:0 1 AM TRANSITIONAL CARE MANAGER 06/15/2024 10:02 AM TRANSITIONAL CARE MANAGER Narrative [facility] - 06/18/2024 10:27 AM TRANSITIONAL CARE MANAGER LB us Bruce Justice MD LAB URINE ORDERABLES Final Resu lt [facility] [address] [place] [address] * (ABNORMAL) Renal function panel (06/15/2024 10:01 AM TRANSITIONAL CARE MANAGER) Glucose 90 65 - 99 mg/dL [facility] [...] [facility] 06/15/2024 10:0 1 AM TRANSITIONAL CARE MANAGER 06/15/2024 10:02 AM TRANSITIONAL CARE MANAGER Narrative [facility] - 06/18/2024 10:27 AM TRANSITIONAL CARE MANAGER LB Bruce Justice MD LAB BLOOD ORDERABLES Final Resu lt [facility] [address] [address] [place] [address] * (ABNORMAL) Tacrolimus, Highly Sensitive, LC/MS/MS (05/11/2024 8:55 AM TRANSITIONAL CARE MANAGER) Pathologist [facility] Tacrolimus, Highly Sensitive, LC/MS/MS 1.2(L) mcg/L [facility] Comment: No definitive therapeutic or toxic ranges have been established. Optimal blood drug levels are influenced by type of transplant, patient response, time post- transplant, co-administration of other drugs, and drug formulation. The following trough range is a suggested guideline: 5.0-20.0 mcg/L. 05/11/2024 8:55 AM TRANSITIONAL CARE MANAGER 05/11/2024 8:56 AM TRANSITIONAL CARE MANAGER Narrative [facility] - 05/15/2024 2:37 AM TRANSITIONAL CARE MANAGER LB FASTING:YES FASTING: YES Bruce Justice MD LAB BLOOD ORDERABLES Final Resu lt Performing Organization Address City/[facility]/ZIP Co de Phone Number [facility] [address] [address] [address] * Cytomegalovirus (CMV) DNA PCR, quantitative (05/11/2024 8:55 AM TRANSITIONAL CARE MANAGER) Pathologist [facility] CMV DNA qn Not Detected Not Detected IU/mL [facility] CMV DNA log IU/mL Not Detected Not Detected Log IU/mL [facility] Comment: (Note) For additional information, please refer to [email or web address].Def[employer] Mobile/faq/[email or web address] (This link is being provided for informational/educational purposes only.) [facility] [address] [address],[address] [facility] [address] Laurita Deleon MD, PhD 05/11/2024 8:55 AM TRANSITIONAL CARE MANAGER 05/11/2024 8:56 AM TRANSITIONAL CARE MANAGER Narrative [facility] - 05/15/2024 2:37 AM TRANSITIONAL CARE MANAGER LB FASTING:YES FASTING: YES Bruce Justice MD LAB MICROBIOLOGY - GENERAL ORDE RABLEXX Final Result [facility] [address] [facility] [address], [address] [place] [address] * COPY(IES) SENT TO: (05/11/2024 8:55 AM TRANSITIONAL CARE MANAGER) COPY(IES) SENT TO: [facility] Comment: [facility] - COPY TO [address] [address] 05/11/2024 8:55 AM TRANSITIONAL CARE MANAGER 05/11/2024 8:56 AM TRANSITIONAL CARE MANAGER Narrative [facility] - 05/15/2024 2:37 AM TRANSITIONAL CARE MANAGER LB FASTING:YES FASTING: YES Bruce Justice MD LAB BLOOD ORDERABLES Final Resu lt Performing Organization Address City/[facility]/ZIP Co de Phone Number [facility] * BK virus, DNA, quantitative (05/11/2024 8:55 AM TRANSITIONAL CARE MANAGER) BK virus, PCR Not Detected Not Detected IU/mL [facility] BK Virus DNA, Real Time PCR Not Detected Not Detected Log IU/mL [facility] Comment: [facility] [address] [address],[address] [place], [place] [address] Laurita Deleon MD, PhD 05/11/2024 8:55 AM TRANSITIONAL CARE MANAGER 05/11/2024 8:56 AM TRANSITIONAL CARE MANAGER Narrative [facility] - 05/15/2024 2:37 AM TRANSITIONAL CARE MANAGER LB FASTING:YES FASTING: YES Bruce Justice MD LAB MICROBIOLOGY - GENERAL ORDE RABLES Final Result Performing Organization Address City/[facility]/ZIP Co de Phone Number [facility] [address] [address], [address] [place] [phone] * (ABNORMAL) CBC with auto differential (05/11/2024 8:55 AM TRANSITIONAL CARE MANAGER) [facility] WBC 7.0 3.8 - 10.8 Thousand/u L [...] % [facility] 05/11/2024 8:55 AM TRANSITIONAL CARE MANAGER 05/11/2024 8:56 AM TRANSITIONAL CARE MANAGER Narrative [facility] - 05/15/2024 2:37 AM TRANSITIONAL CARE MANAGER LB FASTING:YES FASTING: YES Bruce Justice MD LAB BLOOD ORDERABLES Final Resu lt Performing Organization Address [facility] Co de Phone Number [facility] [address] [place] [address] * (ABNORMAL) Protein / creatinine ratio, urine, random (05/11/2024 8:55 AM TRANSITIONAL CARE MANAGER) Creatinine, ur 7(L) 20 - 275 mg/dL [facility] Protein/creati nine ratio 244,286(H) 24 - 184 mg/g creat [facility] Protein/Creati nine Ratio 244.286(H) 0.024 - 0.184 mg/mg creat [facility] Protein, ur, quant 1,710(H) 5 - 24 mg/dL [facility] Comment: Results verified by repeat analysis on dilution. 05/11/2024 8:55 AM TRANSITIONAL CARE MANAGER 05/11/2024 8:56 AM TRANSITIONAL CARE MANAGER Narrative [facility] - 05/15/2024 2:37 AM TRANSITIONAL CARE MANAGER LB FASTING:YES FASTING: YES Bruce Justice MD LAB URINE ORDERABLES Final Resu Performing Organization Address [facility] de Phone Number [facility] [address] [place] [address] * (ABNORMAL) Renal function panel (05/11/2024 8:55 AM TRANSITIONAL CARE MANAGER) Glucose 87 65 - 99 mg/dL [facility] [...] g/dL [facility] 05/11/2024 8:55 AM TRANSITIONAL CARE MANAGER 05/11/2024 8:56 AM TRANSITIONAL CARE MANAGER Narrative [facility] - 05/15/2024 2:37 AM TRANSITIONAL CARE MANAGER LB FASTING:YES FASTING: YES us Bruce Justice MD LAB BLOOD ORDERABLES Final Resu lt [facility] [address] [place] [address] * Hepatitis panel, acute Blood (12/03/2023 10:00 AM CDT) Hep A IgM Nonreactive Nonreactive Comment: Interpretive Data: If Hep A IgM Ab is reported as Equivocal, a new sample should be drawn in two weeks for testing. Current interpretive data was last revised on 19. Hep B core IgM Nonreactive [facility]reactive [facility] Comment: Interpretive Data If HepB Core IgM Ab is reported as Equivocal, a new sample should be drawn in two weeks for testing. Current interpretive data was last revised on 19. Hep C Ab Nonreactive Nonreactive [facility] Comment: Interpretive Data Nonreactive: Antibodies [...] revised on 2019. HepBsAg Nonreactive Nonreactive [facility] Blood 12/03/2023 10:0 0 AM CDT 12/03/2023 10:01 AM CDT Anna Clarke MD LAB MICROBIOLOGY - GENERAL OR DERABLES Final Result Performing Organization Address City/State/[place] [address] [address] Department [place] [address] from Last 3 Months or Most Recently Relevant to Health Maintenance Insurance [facility] MEDICARE MEDICARE ID[employer] MEDICARE MEDICARE [facility] Advance Directives For more information, please contact: [phone] * Full Code (Latest Code Status on [...] 10:10 AM 03/04/2023 8:53 PM Care Teams Fringe Knotter Relationship Specialty Start Date End Date Nikkie Gordon MD PCP - General Family Medicine 03/09/21 Nikkie Gordon MD 03/09/21 Susan Jones MD 11/27/18 Kristian Ram MD Consulting Physician Nephrology 05/05/19 Chelo Herzog, RN [address] [address] Laborer Cement Gun Placing 05/05/19 Davidson Martinez MD [address] [address] Tool Designer Apprentice Cardiology 08/16/21 Tyson Bales MD [address] [address] Tool Designer Apprentice Cardiovascular Disease 04/16/22 Kristian Ram MD [address] [place] [address] Referring Physician Nephrology 03/11/23 Anna Clarke MD [address] [place] [address] [address] LAM[address] [place] [address] Consulting Physician Nephrology 04/24/23
--- OUTSIDE RECORDS SUMMARY | 2024-08-06 00:29 | XMS_ITS | Clinical Summary ---
Author Organization [facility] Facility Address [address] [address] Care Team Providers Care Hydrometallurgical Engineer Name Role Phone Nikkie Gordon MD Primary Care Provider [phone] Allergies Active Allergy Reactions Criticality Noted Date [...] injection 10,000 UnitsIndications:Anemia due to Renal Failure 29087 Units SC Every 14 days 04/05/2021 Active Active Problems Problem Noted Date Diagnosed Date Iron deficiency anemia 11/20/2018 Chronic kidney disease stage 3 10/24/2018 Type 2 diabetes mellitus without complication Hypertensive disorder 06/27/2016 Hyperlipidemia 06/27/2016 End-stage renal disease 06/27/2016 Immunizations Immunization Administration Dates Next Due Tdap 08/29/2016 Social [...] Comments Breast Cancer Screening 1955 Pneumococcal Vaccine: 50+ Ye ars (1 of 2 - PCV) [...] A1C 5.5 4.8 - 5.9 % APS Intalio SLKMO 2021 09/08/2021 9:5 1 AM CDT Narrative APS SPECTRA SLKMO - 09/08/2021 Unless otherwise specified, test(s) performed at: [facility] [employer] [address] [place] [address] CIVIL ENGINEERING PROJECT MANAGER: Jaret Sweeney M.D. For any questions, please call customer service at FREQUENCY:MONTHLY Resulting Agency Comment Specimen source: Blood us Christin Sapp MD LAB BLOOD BANK TEST ORDERAB LES Final Result [facility]PECT[facility] SLKMO from Last 3 Months or Most Recently Relevant to Health Maintenance Insurance Medicare Medicaid [facility] (PIL) Care Teams Hydrometallurgical Engineer Relationship Specialty Start Date End Date Nikkie Gordon MD [address] [place] [address] PCP - General 01/24/20
--- OUTSIDE RECORDS SUMMARY | 2024-08-06 00:29 | XMS_ITS | Encounter Summary ---
Author Organization [facility] Address [address] [facility] [address] [place] [address] Phone Care Team Providers Care Technical Manager Chemical Plant Name Role Phone Nikkie Gordon MD Primary Care Provider [phone] Reason for Visit * Reason Comments Med Refill Encounter Details Date Type Department Care Team (Late st Contact Info) Description 01/25/2024 Refill [facility]. [address] [facility] [address] [place] [address] Kristian Ram MD [address] [facility] [address] [place] [address] Social History Tobacco Use Types [...] on filedocumented in this encounter Care Teams Technical Manager Chemical Plant Relationship Specialty Start Date End Date Nikkie Gordon MD [address] [place] [address] PCP - General 01/24/20 documented as of this encounter
--- OUTSIDE RECORDS SUMMARY | 2024-08-06 00:31 | XMS_ITS | Clinical Summary ---
Author Organization [facility] Address [address] [place] [address] Phone Care Team Providers Care Textile Broker Name Role Phone Nikkie Gordon MD Primary Care Provider [phone] Allergies Active Allergy Reactions Criticality Noted Date [...] for Pain. 15 Tablet 04/09/2023 4:00 PM CHIP UNLOADER 04/09/20 23 Active tacrolimus (ENVARSUS XR) 1 [...] 03/02/20 24 Active naloxone (NARCAN) 4 mg/spray [place], Non-Aerosol EMERGENCY USE ONLY: Administer 1 spray [...] Overview (01/03/2024): S/P [id number]-[id number] in 2008 in [facility], followed by Dr Adriel Riley in in [facility]. Primary hypertension 11/15/2015 Encounters Date Type Department Care Team Description 07/06/2024 External Device Data [place] ABSTRACTION Provider, Abstract 07/06/2024 External Device Data [place] ABSTRACTION Provider, Abstract 07/02/2024 Chart Note [facility] [place] [address] [place] [address] Stephenie Saenz MD Dialysis Visit (Hemodialysis visit) 06/15/2024 External Device Data [place] ABSTRACTION Provider, Abstract 06/04/2024 Chart Note [facility] [place] [address] [place] [address] Stephenie Saenz MD Dialysis Visit (Hemodialysis visit) 05/12/2024 External Device Data [place] ABSTRACTION Provider, Abstract from Last 3 Months Family History Medical [...] Comments Blood Pressure 142/62 03/02/2024 4:39 PM CHIP UNLOADER Pulse 84 03/02/2024 1:06 PM CHIP UNLOADER Temperature 36.9 C (98.4 F) 03/02/2024 4:39 PM CHIP UNLOADER Respiratory Rate 21 03/02/2024 4:39 PM CHIP UNLOADER Oxygen Saturation 100% 03/02/2024 4:39 PM CHIP UNLOADER Inhaled Oxygen Concentration - - Weight 90.5 kg (199 lb 8.3 oz) 03/02/2024 2:25 P M CHIP UNLOADER Height 162.6 cm (5' 4 ) 03/02/2024 3:20 AM CHIP UNLOADER Body Mass Index 34.25 03/02/2024 3:20 AM CHIP UNLOADER Plan of Treatment Health Maintenance Due Date [...] exists INFLUENZA VACCINE (#1) 2023 COVID-19 Vaccine ( - 2023-2 5 season) 2023 03/19/2022, 12/12/2021, 08/23/2021, Additional history exists DIABETES HBA1C Q 6 MONTHS 07/01/2024 01/02/2024 DTAP/TDAP/TD VACCINES (2 - T d or Tdap) 08/29/2026 08/29/2016 OSTEOPOROSIS SCREENING Completed 02/19/2021, 2020 Medical Devices Implanted Type Area Beet Flumer Device Identifier Shelf Expiration Date Model / Serial / Lot Palindrome Precision Chronic Catheter Kit Implanted:Qty : 1 on 01/05/2024 by Ned Mccall MD at [facility] Catheter Right: Chest [employer] 06/25/2028 [id number] (REF #) / / [id number] Description:TRIAL NO CHARGE Clip Ligating Horizon Sm Ti [id number] - Csc - [id number] Implanted:Qty : 2 on 02/11/2024 by Ned Mccall MD at [facility] Clip Left: Arm [employer]LE[employer]LEX INC 10/26/2028 [id number] / / [id number] Clip Ligating Horizon Med Ti [id number] - Csc - [id number] Implanted:Qty : 1 on 02/11/2024 by Ned Mccall MD at [facility] Clip Left: Arm TELEFLEX- WECK CLOSURE SYS 12/17/2028 [id number] / / [id number] Graft Advanta Vxt Sw [id number] - [id number] Implanted:Qty : 1 on 02/11/2024 by Ned Mccall MD at [facility] Graft Left: Arm GETINGE [employer] [id number] 12/14/2026 [id number] / [id number] / Hemostatic Surgiflo 8ml W/ Thrombin 2994 - [id number] Implanted:Qty : 1 on 02/11/2024 by Ned Mccall MD at [facility] Hemostatic Left: Arm J[employer]J- [employer] [id number] 08/25/2024 [id number] / / [id number] Procedures Procedure Name Priority Date/Time Associated Diagnosis Comments HEMOGLOBIN A1C Routine 01/02/2024 9:02 PM CDT from Last 3 Months or Most Recently Relevant to Health Maintenance Results * HEMOGLOBIN A1C (01/02/2024 9:02 PM CDT) HEMOGLOBIN A1C 5.2 <5.7 % 01/03/2024 9:59 AM CDT [facility] EST. AVG GLUCOSE, A1C 103 mg/dL 01/03/2024 9:59 AM CDT [facility] Blood Venipuncture / Unknown 01/02/2024 9:02 PM CDT 01/02/2024 9:06 PM CDT Narrative [facility] - 01/03/2024 9:59 AM CDT HGB A1C INTERPRETATION NORMAL: <5.7% PRE-DIABETES: 5.7 - 6.4% DIABETES: 6.5% OR GREATER us Rico Munguia MD CHEMISTRY ORDERABLES Final Re sult [facility] CLIA# [id number] [address] [place] [address] from Last 3 Months or Most Recently Relevant to Health Maintenance Insurance [employer] MEDICARE PART A AND B Advance Directives For more information, please contact: [phone] * Full Code (Latest Code Status on File) Date Activated Date Inactivated Comments 03/02/2024 4:40 AM 03/02/2024 11:09 PM * Full Code Date Activated Date Inactivated Comments 02/11/2024 9:35 AM 02/11/2024 8:01 PM * Full Code Date Activated Date Inactivated Comments 01/03/2024 9:02 AM 01/06/2024 3:29 PM Care Teams Textile Broker Relationship Specialty Start Date End Date Nikkie Gordon MD [address] [place] [address] PCP - General Family Practice 04/04/23
--- OUTSIDE RECORDS SUMMARY | 2024-08-06 00:31 | XMS_ITS | Clinical Summary ---
Author Organization [facility] Address [address] [place] [address] Phone Care Team Providers Care Liner Checker Name Role Phone Kristian Ram MD Unavailable [phone] Nikkie Gordon MD Primary Care Provider [phone] Allergies Active Allergy Reactions Criticality Noted Date [...] 21 Active ethyl chloride Aerosol Apply 1 [place] three times a week. APPLY TO DIALYSIS [...] to COVID-19 virus 04/28/2021 Overview (08/26/2021): at [facility] Prediabetes 05/21/2019 Obesity, Class II, BMI 35-39.9 [...] on file Legal Sex Female 9:20 AM PURCHASING/RECEIVING Gender Identity Not on file Sexual Orientation [...] ACUTE (AHP) Routine 08/28/2021 9:52 AM CDT [facility] DIAG BILATERAL DIGITAL W CAD W JAGDEEP Routine 02/22/2021 3:22 PM CDT Mastodynia [facility] BONE DENSITOMETRY AXIAL SKELETON Routine 02/19/2021 10:52 AM CDT Asymptomatic menopausal state STOOL, OCCULT BLOOD, DIAGNOSTIC, VIA GUAIAC STAT 02/15/2021 11:59 PM CDT from Last 3 Months or Most Recently Relevant to Health Maintenance Results * Hepatitis Panel Acute (AHP) (08/28/2021 9:52 AM CDT) HEPATITIS A IGM ANTIBODY NON DETECTED NON DETECTED [place] [id number] 08/28/2021 2:58 PM CDT [facility] Comment: IGM Antibodies to HAV not detected. Does not exclude early acute or recovered HAV infection. HEP B CORE AB (IGM) NON DETECTED NON DETECTED [place] [id number] 08/28/2021 2:58 PM CDT [facility] Comment:IGM anti-HBC not det ected. Does not exclude the possibility of exposure to or infection with HBV. HEPATITIS B SURFACE ANTIGEN NON DETECTED NON DETECTED [address] 08/28/2021 2:58 PM CDT [facility] Comment:A nonreactive test r esult does not exclude the possibility of exposure to or infection with Hepatitis B virus. A nonreactive test result in individuals with prior exposure to hepatitis B may be due to antigen levels below the detection limit of this assay or lack of antigen reactivity to the antibodies in this assay. hepatitis C antibody 0.08 <1 S/CO [place] [id number] 08/28/2021 2:58 PM CDT [facility] Comment: Signal/Cutoff ratio < 0.79 is Nondetected Signal/Cutoff ratio 0.80-0.99 is Grayzone Signal/Cutoff ratio > 0.99 is Detected Supplemental assays are recommended if signal/cutoff ratio is >/=1.00. Signal/cutoff ratio result >/= 5.00 is 97% predictive of positivity for recombinant immunoblot assay (RIBA) and will be reported to the [place] Department of Public Health as required. Blood Venipuncture / Unknown 08/28/2021 9:52 AM CDT 08/28/2021 9:52 AM CDT us Pj Maxwell DO HEMATOLOGY ORDERABLES Final Result [facility] [address] [place] [address], [place] * [facility] DIAG BILATERAL DIGITAL W CAD W JAGDEEP (02/22/2021 3:22 PM CDT) Anatomical Region Laterality Modality breast Bilateral Mammography 02/22/2021 2:46 PM CDT Narrative 02/23/2021 6:12 AM CDT - [facility] DIAG BILATERAL DIGITAL W CAD W JAGDEEP [...] Comparison is made to exam dated: 08/03/2016 [facility]. Ultrasound of was performed. BREAST TISSUE:There are scattered fibroglandular densities in both breasts. FINDINGS: There is a global asymmetry in the left breast with marked enlargement of the left breast with skin and trabecular thickening. There is no discrete mass. Ultrasound demonstrates diffuse edema. Targeted ultrasound of the axilla demonstrates no abnormality. Per wire fence erector, there is a large lump in the [...] signed by: Rema Dunn M.D. ts/:02/22/2021 15:32:55 Fruit Grading Supervisor(s): Shashi Lowery (R)), [facility]; Glenny Esquivel, [facility] letter sent: Abnormal Exam Reading location: [...] Comparison is made to exam dated: 08/03/2016 [facility]. Ultrasound of was performed. BREAST TISSUE:There are scattered fibroglandular densities in both breasts. FINDINGS: There is a global asymmetry in the left breast with marked enlargement of the left breast with skin and trabecular thickening. There is no discrete mass. Ultrasound demonstrates diffuse edema. Targeted ultrasound of the axilla demonstrates no abnormality. Per wire fence erector, there is a large lump in the [...] signed by: Rema Dunn M.D. ts/:02/22/2021 15:32:55 Fruit Grading Supervisor(s): Frieda Lowery)(Bautista), [facility]; Glenny Esquivel, [facility] letter sent: Abnormal Exam Reading location: [...] Narrative 02/19/2021 1:31 PM CDT EXAM DESCRIPTION: [facility] BONE DENSITOMETRY AXIAL SKELETON REASON FOR STUDY: 65 year old female with given history of asymptomatic menopausal state. Cmm Operator/Model: [employer]Shop (S/N [id number]) CLINICAL INFORMATION: Current height: 64 inches Maximum [...] by Brock Haynes M.D., MD: Report ID: [id number] Reading Location: [place] [address] Procedure Note Brock Haynes MD - 02/19/2021 EXAM DESCRIPTION: [facility] BONE DENSITOMETRY AXIAL SKELETON REASON FOR STUDY: 65 year old female with given history of asymptomatic menopausal state. Cmm Operator/Model: CreditShop (S/N [id number]) CLINICAL INFORMATION: Current height: 64 inches Maximum [...] by Brock Haynes M.D. MD: Report ID: [id number] Reading Location: [place] [address] IMPRESSION: Normal bone mineral density by WHO [...] Blood - Diagnostic (02/15/2021 11:59 PM CDT) [facility] Signature OCCULT BLOOD DIAG, GI BLEED Negative Negative 02/16/2021 12:26 AM CDT [facility] Stool Non-Phlebotomy Collection / Unknown 02/15/2021 11:59 PM CDT 02/16/2021 12:21 AM CDT Familia Brunson MD BODY FLUIDS & STOOLS MARY POTTS Final Result [facility] [address] [place] [address] from Last 3 Months or Most Recently [...] measures to stabilize the patient. Care Teams Liner Checker Relationship Specialty Start Date End Date Nikkie Gordon MD [address] [place] [address] PCP - General Family Medicine 02/18/20 Kristian Ram MD Consulting Physician Nephrology 11/20/18
--- OUTSIDE RECORDS SUMMARY | 2024-08-06 00:31 | XMS_ITS | Encounter Summary ---
Author Organization [facility] Address [address] [place] [address] Care Team Providers Care Global Program Manager Name Role Phone Nikkie Gordon MD Primary Care Provider [phone] Nikkie Gordon MD Unavailable [phone] Susan Jones MD Unavailable [phone] Kristian Ram MD Unavailable [phone] Chelo Herzog RN Unavailable [phone] Davidson Martinez MD Unavailable [phone] Lexis Nava RN Unavailable [phone] Emily Dixon MD Unavailable Tyson Bales MD Unavailable [phone] Kristian Ram MD Unavailable [phone] Anna Clarke MD Unavailable [phone] Encounter Details Date Type Department Care Team (Late st Contact Info) Description 03/05/2023 Documentation [facility] Case Management [address] [place] [address] Ella Levi LCSW Social History Tobacco Use Types Packs/Day Years Used Date Smoking Tobacco: Former Cigarettes 0.4 15.2 2 008 - 06/2022 Passive Smoke Exposure: Never Smokeless Tobacco: Never Alcohol Use Standard Drinks/Week Comments Never 0 (1 standard drink = 0.6 oz pur e alcohol) [facility] Utilities Answer Date Recorded In the past 12 months has th e [employer], [employer], oil, or water [employer] threatened to shut off services in your [...] often do you attend chur ch or orthodox services? More than 4 times per year 03/03/2023 Do you belong to any clubs o r organizations such as jew groups, unions, fraternal or athletic groups, or [...] place to sleep or slept in a jail (including now)? No 03/03/2023 Education Answer Date Recorded What is the highest level of school you have completed or the highest degree you have received? 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, ELEMENTARY SCHOOL TEACHER'S AIDE, ENRRIQUE) 03/03/2023 Comments No Sex and Gender Information Value Date Recorded Sex Assigned at Not on file Legal Sex Female 1:10 PM ETIQUETTE COACH Gender Identity Not on file Sexual Orientation [...] Patient does not drink 03/06/2023 11:37 AM ETIQUETTE COACH Huber, Nikkie L., RN Q3: How often do you have six or more drinks on one occasion? Never 03/06/2023 11:37 AM ETIQUETTE COACH Nikkie Ngo RN documented as of this encounter Miscellaneous Notes * Plan of Care - Ella Levi LCSW - 03/05/2023 11:46 AM CST 11:13 Received call from Tasha at [facility] Main Office [phone], stating that the Regional Golf Instructor at [facility] has denied this pt for dialysis at all of their [facility] dialysis facilities. Tasha stated the pt has been contacted and informed of this decision. UETTE COACH documented in this encounter Plan of Treatment [...] documented as of this encounter Care Teams Global Program Manager Relationship Specialty Start Date End Date Nikkie Gordon MD PCP - General Family Medicine 03/09/21 Nikkie Gordon MD 03/09/21 Susan Jones MD 11/27/18 Kristian Ram MD Consulting Physician Nephrology 05/05/19 Chelo Herzog, RN [address] [address] Aerodynamics Professor 05/05/19 Davidson Martinez MD [address] [facility] [address] [place] [address] [facility] 08/16/21 Lexis Nava RN [address] [facility] [address] [place] [address] Aerodynamics Professor 03/05/22 Emily Dixon MD [address] [facility] [address] [place] [address] Referring Physician Internal Medicine 03/05/22 3 Tyson Bales MD [address] [facility] [address] [place] [address] [facility] 04/16/22 Kristian Ram MD [address] [facility] [address] [place] [address] Referring Physician Nephrology 03/11/23 Anna Clarke MD [address] [facility] [address] [place] [address] Consulting Physician Nephrology 04/24/23 documented as of this encounter
[2024-08-06] MEDS: ACETAMINOPHEN 500 MG TABLET 1000 MG PO (11:25)
[2024-08-06 11:26] LABS: Basophils Percent Auto 0.3 % (0.2-1.2); Eosinophils Absolute Auto 0.2 K/mm3 (0-0.3); Eosinophils Percent Auto 2.7 % (0-4.4); Hematocrit 35.9 % (37.0-47.0); Hemoglobin 11.3 g/dL (12.0-15.0); Immature Granulocyte Absolute 0.07 K/mm3 (0.00-0.031); Immature Granulocyte Percent A 0.8 % (0-0.5); Lymphocytes Absolute Auto 0.91 K/mm3 (0.9-3.2); Lymphocytes Percent Auto 10.2 % (18.3-44.2); Mean Corpuscular HGB Conc 31.5 g/dl (32-36); Mean Corpuscular Hemoglobin 32.1 pg (26-34); Mean Platelet Volume 10.9 fl (7.4-10.4); Monocytes Absolute Auto 0.6 K/mm3 (0.1-0.6); Monocytes Percent Auto 6.5 % (2.6-8.5); Neutrophils Absolute Auto 7.1 K/mm3 (1.3-6.7); Neutrophils Percent Auto 79.5 % (45.5-73.1); Platelet Count Result 162 k/mm3 (150-375); Red Blood Count 3.52 M/mm3 (4.2-5.4); Red Cell Distribution Width 15.2 % (11.5-14.5)
--- NOTE | 2024-08-06 11:31 | WPDHPUPDATE1 ---
History and Physical Update Update Date/Time: 08/06/24 11:31 History and Physical has been reviewed, including an updated exam of the patient. There are NO changes in the patient's condition. Risks, benefits, and alternatives have been discussed and questions answered. Patient agrees to proceed with procedure.
--- NOTE | 2024-08-06 12:17 | P.PNAN_ITS ---
Anes - Initial Pre Proc Eval Procedure: Operation Date: 08/06/24 14:30 Proposed Procedures p Transanal Excision Rectal Mass - Junaid Wong MD Date/Time: 08/06/24 12:17 Surgeon: Junaid Wong MD Pre Op Diagnosis: Anal Mass Patient Data Age: 68 Gender: F Height: 1.6 m Weight: 93.9 kg Last Vital Signs Temp 36.3 C L 08/06/24 10:40 Pulse 72 08/06/24 10:40 Resp 16 08/06/24 10:40 BP 116/75 08/06/24 10:40 Pulse Ox 99 08/06/24 10:40 O2 Del Method Room Air 08/06/24 10:40 Allergies Allergy/AdvReac Type Severity Reaction Status Date / Time iodine Allergy Mild Unknown Verified 08/06/24 11:36 losartan AdvReac Severe diarrhea, Verified 08/06/24 11:36 fatigue mycophenolic acid (From AdvReac Severe transplant Verified 08/06/24 11:36 Myfortic) rejection, BK virus allopurinol AdvReac Mild urinary Verified 08/06/24 11:36 retention Home Medications ?Medication ?Instructions ?Recorded ?Confirmed ?Type prednisone 5 mg tablet 5 mg PO DAILY 01/24/20 08/06/24 History inhalational spacing device #1 ea 08/13/21 07/29/24 Rx (RiteFlo Aerochamber) folic acid 1 mg tablet 1 mg PO DAILY #30 tabs 12/26/21 08/06/24 Rx furosemide 80 mg tablet 80 mg PO BID #60 tabs 12/26/21 08/06/24 Rx calcitriol 0.5 mcg capsule 0.5 mcg PO 3XW 08/26/22 08/06/24 History tacrolimus 1 mg capsule, 8 mg (8 x 1 mg) PO BID #60 caps 04/02/24 08/06/24 Rx immediate-release atorvastatin 10 mg tablet (Lipitor) 10 mg PO QHS #90 tabs 05/10/24 08/06/24 Rx amlodipine 10 mg tablet 10 mg PO DAILY #90 tabs 06/25/24 08/06/24 Rx labetalol 200 mg tablet 200 mg PO TID #270 tabs 06/25/24 08/06/24 Rx ethyl chloride 100 % topical spray 1 applic topical ONCE #116 mL 07/18/24 07/29/24 Rx oxycodone 5 mg tablet 5 mg PO Q4H PRN pain 07/29/24 07/29/24 History Laboratory Tests 08/06/24 11:20 WBC 9.0 K/mm3 (4.5-10.0) RBC 3.52 L M/mm3 (4.2-5.4) Hgb 11.3 L g/dL (12.0-15.0) Hct 35.9 L % (37.0-47.0) MCV 102.0 H fl (80-100) MCH 32.1 pg (26-34) MCHC 31.5 L g/dl (32-36) RDW 15.2 H % (11.5-14.5) Plt Count 162 k/mm3 (150-375) MPV 10.9 H fl (7.4-10.4) Immature Gran % (Auto) 0.8 H % (0-0.5) Neut % (Auto) 79.5 H % (45.5-73.1) Lymph % (Auto) 10.2 L % (18.3-44.2) [place] % (Auto) 6.5 % (2.6-8.5) Eos % (Auto) 2.7 % (0-4.4) Baso % (Auto) 0.3 % (0.2-1.2) Lymph # (Auto) 0.91 K/mm3 (0.9-3.2) [place] # (Auto) 0.6 K/mm3 (0.1-0.6) Eos # (Auto) 0.2 K/mm3 (0-0.3) Baso # (Auto) 0.0 K/mm3 (0.0-0.1) Abs Immat Gran (auto) 0.07 H K/mm3 (0.00-0.031) Absolute Neuts (auto) 7.1 H K/mm3 (1.3-6.7) Absolute Nucleated RBC 0.000 K/mm3 (0.0-0.012) Nucleated RBC % 0.0 % (0.0-0.2) Sodium Pending Potassium Pending Chloride Pending Carbon Dioxide Pending Anion Gap Pending BUN Pending Creatinine Pending Estim Creat Clear Calc Pending Estimated GFR Pending Glucose Pending Calcium Pending Patient hx anesthesia problems: none Family hx anesthesia problems: none Results Review: All pre-operative results and documents have been reviewed as part of the pre- operative evaluation. [facility] Past Medical History Medical History Hemodialysis patient Chronic renal insufficiency, stage V H/O thyroid nodule Chronic renal insufficiency, stage IV (severe) Anemia in chronic kidney disease (CKD) Vitamin B12 deficiency Folic acid deficiency Acute on chronic renal insufficiency Essential hypertension Surgical History Surgical History History of bilateral tubal ligation History of renal stent Renal transplant recipient Family History Family History Mother Hypertension Sibling Hypertension Social History Social History Smoking packs per day: 0.5 Smoking cigarettes per day: 10.0 Years smoked: 4 Smoking pack-years: 2.00 Smoking status: Former smoker Tobacco type: cigarettes Smoking end date: 06/26/22 Additional smoking assessment comments: denies any nicotine Alcohol intake: never Substance use: never Substance use type: does not use Current Housing: Decline to Answer Concerned About Future Housing: Decline to Answer Difficulty Paying Gas/Electric Bills: Decline to Answer Difficulty Paying for Meds: Decline to Answer Currently Unemployed: Decline to Answer Difficulty w/ Childcare or Family Care: Decline to Answer Living arrangements: with family Additional living arrangements comments: Brother Gender identity (if verbalized by the patient): Female Spiritual care concerns: No Agree to blood products: Yes Anes - Eval Final PreProcedure Day of Procedure 08/06/24 12:17 Patient weight: obese Heart: regular rate and rhythm Lungs: decreased breath sounds Airway: Mallampati scale class II Neurological: alert and oriented Last oral intake: >/= 8 hours ASA classification: IV Emergent: no Anesthetic plan: proceed Anesthesia type and monitoring: general ETT and standard monitoring Results Review: All pre-operative results and documents have been reviewed as part of the pre- operative evaluation. Informed Consent: The patient's anesthetic plan and its attendant risks and benefits were discussed with the patient/family/POA. Questions were solicited and answers provided to the satisfaction of the patient/family/POA.
[2024-08-06] MEDS: SODIUM CHLORIDE 0.9% IV 500 ML 30 ML IV CONT (12:29)
[2024-08-06 13:22] LABS: Anion Gap 11 mmol/L (4-12); Blood Urea Nitrogen 25 mg/dL (7-17); Calcium 9.2 mg/dL (8.4-10.2); Carbon Dioxide 29 mmol/L (22-30); Chloride 93 mmol/L (98-107); Estimated CRCL calculation 6 ml/min; Estimated Glomerular Filt Rate 5; Glucose 87 mg/dL (65-110); Potassium 5.2 mmol/L (3.4-5.0); Sodium 133 mmol/L (137-145)
[2024-08-06] MEDS: ceFAZolin 2 GM/D5W 50 ML 2 GM/50 ML BAG IVPB (14:12)
[2024-08-06] MEDS: BUPIVACAINE/EPINEPHRINE 0.5% 50 ML VIAL 30 ML INFILTRATE (14:38)
--- NOTE | 2024-08-06 15:41 | W.PM.PROC2 ---
Procedure Note - Detailed Date of Procedure 08/06/24 Pre-op Diagnosis Anal Mass Post-op Diagnosis Same Procedure Performed Transrectal excision anal mass Surgeon Junaid Wong MD Molded [employer] Wicker Blaire VILLATORO Anesthesia General and Local Indications Patient underwent colonoscopy and May. Colonoscopy was basically negative although an anal canal mass was noted. Patient was seen in my office and a suspicious anal canal mass was protruding from the rectum. She is taken to surgery now for transanal excision of this anal mass. Findings The mass was in the right anterior quadrant. Most of it seemed to be in the perianal skin. The mass itself had cobblestoning of the abnormal epithelium that seemed to be from the anal canal. Some perianal skin was involved as well. I looked thoroughly for any rectal mass both by anoscopy and digital exam. No other masses other than that described above was seen. Prep was poor as there was solid stool in the rectum. Description of Procedure Patient was taken to surgery and induced into general anesthesia. She was placed in prone jadiel-knife position. The buttocks were taped apart. Prep and drape was carried out. Initially, I looked in the anal canal with the Hill-Barrett anoscope. As noted above, the rectal prep was poor and may not have been done at all. There was solid stool in the rectum. I cleaned this out so that the distal rectum and anal canal could be visualized well. Using both digital exam and the Hill-Barrett anoscope, I thoroughly checked the distal rectum for any mucosal lesions. None were seen other than the right anterior quadrant lesion. I then infiltrated local anesthetic of 0.5% Marcaine with epinephrine. 20 cc deep subdermal and 20 cc interest sphincteric were used. A large Hill-Barrett anoscope was introduced into the rectum. I excised the right anterior quadrant anal canal mass starting in the distal rectum and proceeding out to the perianal skin. The mass was completely excised. The wound was closed with running locking 3-0 chromic which did achieve good hemostasis. I checked the inguinal canal and there was no additional bleeding. The rectum was then dressed with Xeroform gauze, fluffs, Medipore tape and Promise panties. Patient was then returned to a supine position. She was awakened and extubated. She transferred to recovery in good condition. Sponge and needle counts were correct x2. Estimated Blood Loss -25 Drains No Packing No Pathology Yes (Right anterior quadrant anal mass) Complications None Condition Stable Disposition PACU [facility] Billing Surgery - Charge Forward: Surgery Billing (Transrectal excision of anal mass)
== END 2024-08-06 16:34 | disposition home or self-care (01) ==
PROVIDERS: PCP Family Medicine; Visit Provider Surgery
PROC: (CPT 45171; principal; 2024-08-06 14:30)
DX: C21.1 Malignant neoplasm of anal canal (principal); I13.2 Hypertensive heart and chronic kidney disease with heart failure and with stage 5 chronic kidney disease, or end stage renal disease; I50.9 Heart failure, unspecified; N18.6 End stage renal disease; Z99.2 Dependence on renal dialysis; D63.1 Anemia in chronic kidney disease; Z87.891 Personal history of nicotine dependence; Z94.0 Kidney transplant status; E66.9 Obesity, unspecified; Z68.36 Body mass index [BMI] 36.0-36.9, adult
CPT/HCPCS: 45171; 36415; 80048; 85025; 88304; 88342; A9270; J0690; J1100; J2003; J2405; J2704; J3010; J7040